=== PATIENT | female | born 1930 | race Caucasian/White ===

== ENCOUNTER 2018-03-11 13:46 | Emergency (ER) | payer MEDICARE, BC ==
[~2018-03-11] VITALS: Ht 152.4 cm; Wt 59.0 kg
[~2018-03-11 13:46] MED LIST: FOLIC ACID1 MG PO; GABAPENTIN300 MG PO; ISOSORBIDE MONO30 MG PO; LOSARTAN-HCTZ1 EACH PO; NITROGLYCERIN0.4 MG SL; OMEPRAZOLE20 MG PO; SERTRALINE HCL50 MG PO; SIMVASTATIN20 MG PO
[2018-03-11] MEDS ORDERED: CLONIDINE HCL 0.1 MG TAB PO STA (14:34)
--- NOTE | 2018-03-11 15:45 | Diagnostic Imaging Report ---
ELBOW RIGHT COMPLETE, FOREARM RIGHT 2 VIEW, HUMERUS RIGHT 2+VIEWS - 3 views HISTORY: Pain status post fall. COMPARISON: None available. FINDINGS: Bones: Mild generalized osteopenia. Small linear lucency with slight irregularity of the cortex of the medial epicondyle identified on the oblique view only. No acute displaced fracture. Osseous alignment is within normal limits. Joints: Advanced degenerative changes of the first and second carpometacarpal joints. Cystic changes throughout the carpal bones. Soft tissues: The soft tissues appear unremarkable. IMPRESSION: 1. Small linear lucency with slight irregularity of the cortex of the medial epicondyle identified on the oblique view only; it may be artifactual versus less likely a nondisplaced fracture. Otherwise no acute osseous abnormality. 2. 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 Signed by: Dr. Iva Santos M.D. on 03/11/2018 3:41 PM
--- NOTE | 2018-03-11 15:46 | Diagnostic Imaging Report ---
PROCEDURE: Frontal and lateral views of the chest. COMPARISON: None. INDICATIONS: FALL FINDINGS: Lines/tubes: None. Lungs: 1.9 cm irregular density in the left lower lobe on the PA view. Mild bibasilar senescent fibrosis. No consolidative pneumonia. Pleura: There is no pleural effusion or pneumothorax. Biapical pleural scarring. Heart and mediastinum: The heart and the mediastinum are normal. Median sternotomy wires. Mild prominence of the right hilum. Bones: No acute bony abnormality. IMPRESSION: 1. No acute thoracic abnormality. 2. 1.9 cm irregular density in the left lower lobe. Recommend further evaluation with nonemergent CT chest. Iva Santos M.D. Dictated by: Iva Santos M.D. on 03/11/2018 at 15:49 Electronically approved by: Iva Santos M.D. on 03/11/2018 at 15:49
--- NOTE | 2018-03-11 15:50 | Diagnostic Imaging Report ---
History:\S\fall on blood thinner \[id number] \S\1515 \S\Y Comparison studies:Head CT on 07/27/2012 Technique: Axial images were obtained from the skull base to the vertex. Coronal and sagittal images reconstructed from the axial data. Intravenous contrast: None Findings: Scalp/skull: No abnormalities. Extra-axial spaces: No masses. No fluid collections. Brain sulci: Moderately prominent. Ventricles: Moderate compensatory dilatation. No hydrocephalus. Parenchyma: Scattered, confluent hypodensities in the supratentorial white matter are small vessel ischemic changes which have mildly worsened since 07/27/2012. Chronic cortical encephalomalacic changes, centered in the right inferior frontal gyrus, associated with chronic changes in the underlying white matter and with regional volume loss, are the result of a previous peripheral MCA vascular insult. No masses, hemorrhage or additional acute or chronic cortical vascular insults. Sellar/suprasellar region: No abnormalities. Craniocervical junction: Patent foramen magnum. No Chiari one malformation. Incidental findings: Atherosclerotic calcifications in the carotid siphons . Impression: 1. No acute intracranial abnormalities. 2. Generalized volume loss and microvascular changes in the supratentorial white matter has a increased from mild to moderate since 08/13/2012. 3. Otherwise, no changes when compared to the head CT on 07/27/2012. 4. 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 Preliminary findings discussed with Dr. OUMOU JOAQUIN, OC at 03/11/2018 3:[address] Rueda. Signed by: Dr. Eduin Jernigan M.D. on 03/11/2018 3:46 PM
[2018-03-11] MEDS ORDERED: NEOMYCIN/POLYMYXIN/BACITRACIN 15 GM TUBE TOP STA (16:26)
[2018-03-11] MEDS ORDERED: ACETAMINOPHEN/CODEINE 300MG - 30MG TAB PO ONE (16:45)
[2018-03-11 17:41] VITALS: BP 152/57
== END 2018-03-11 18:02 | disposition home or self-care (01) ==
LOC: ER 13:46
DX: G89.11 Acute pain due to trauma (principal); S50.811A Abrasion of right forearm, initial encounter; S50.311A Abrasion of right elbow, initial encounter; S40.811A Abrasion of right upper arm, initial encounter; W01.0XXA Fall on same level from slipping, tripping and stumbling without subsequent striking against object, initial encounter; Y92.008 Other place in unspecified non-institutional (private) residence as the place of occurrence of the external cause; I10 Essential (primary) hypertension; K21.9 Gastro-esophageal reflux disease without esophagitis; F32.9 Major depressive disorder, single episode, unspecified; Z95.1 Presence of aortocoronary bypass graft
CPT/HCPCS: 70450; 71046; 99284

== ENCOUNTER 2019-05-23 06:30 | Emergency (ER) | payer MEDICARE, BC ==
[~2019-05-23] VITALS: Ht 152.4 cm; Wt 59.0 kg
--- OUTSIDE RECORDS SUMMARY | 2019-05-23 06:42 | XMS REPORT | Continuity of Care Document ---
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 Name Role Phone [employer] Unavailable Unavailable Problems Problem Status Onset Date Classification Date Reported Comments Source F32.9 Active 05/09/2019 [facility] PNEUMONIA Active 04/14/2019 [facility] CAP Active 04/14/2019 [facility] M39.05/M54.5 Active 04/02/2019 [facility] Unspecified injury of head, initial encounter 09/26/2018 04/07/2019 [facility] NEW ONSET ATRIAL FIBRILLATION Active 09/17/2018 [facility] FALL Active 09/17/2018 [facility] Sepsis, unspecified organism 08/28/2018 03/10/2019 [facility] ABNORMAL LIVER FUNCTION, ACUTE KIDNEY IN Active 08/16/2018 [facility] OTHER Active 08/16/2018 [facility] Multiple fractures of ribs, left side, initial encounter for closed fracture 08/09/2018 02/11/2019 [facility] BROKEN RIBS Active 07/22/2018 [facility] DYSPNEA Active 05/16/2018 [facility] M54.2 Active 03/04/2018 [facility] D50.0 Active 01/29/2018 [facility] R42 Active 08/06/2017 [facility] DX: I65.23=/ I65.23=/ I25.10=/ I65.21 Active 11/22/2016 [facility] UTI Active 05/26/2016 [facility] Z87.440; UTIRENAL STONE PROTOCOL Active 12/09/2015 [facility] HYPONATREMIA, HYPOKALEMIA, DIARRHEA Active 03/30/2012 [facility] NAUSEA Active 03/30/2012 [facility] Nausea (finding) Active 03/30/2012 Problem 05/11/2019 [facility] Nausea Active 03/30/2012 Problem 04/02/2012 [facility] Escherichia coli (organism) Active Problem 05/11/2019 Problem added by Discern Expert. [facility] Heart disease (disorder) Resolved Problem 05/11/2019 [facility] Hypertensive disorder, systemic arterial (disorder) Active Problem 05/11/2019 [facility] Pain in left hip 02/08/2019 [facility] Other chest pain 02/08/2019 [facility] Acute pain due to trauma 02/08/2019 [facility] Syncope and collapse 02/08/2019 [facility] Essential (primary) hypertension 04/07/2019 [facility] Abnormal electrocardiogram [ECG] [EKG] 02/08/2019 [facility] Pain in thoracic spine 02/08/2019 [facility] Cervicalgia 02/08/2019 [facility] Functional urinary incontinence 02/08/2019 [facility] Dysuria 02/08/2019 [facility],[id number] Dizziness and giddiness 02/08/2019 [facility] Unspecified kyphosis, site unspecified 02/08/2019 [facility] Acquired absence of both cervix and uterus 02/08/2019 [facility] Allergy status to sulfonamides status 04/07/2019 [facility] Unspecified fracture of second lumbar vertebra, initial encounter for closed fracture 02/11/2019 [facility] Unspecified fracture of third lumbar vertebra, initial encounter for closed fracture 02/11/2019 [facility] Unspecified fracture of fourth lumbar vertebra, initial encounter for closed fracture 02/11/2019 [facility] Coagulation defect, unspecified 02/11/2019 [facility] Fall on same level, unspecified, initial encounter 02/11/2019 [facility] Chronic kidney disease, stage 3 (moderate) 02/11/2019 [facility] Hypertensive chronic kidney disease with stage 1 through stage 4 chronic kidney disease, or unspecified chronic kidney disease 02/11/2019 [facility] Anxiety disorder, unspecified 02/11/2019 [facility] Postmenopausal atrophic vaginitis 02/11/2019 [facility] Orthostatic hypotension 02/11/2019 [facility] Shortness of breath 12/04/2018 [facility] Atherosclerotic heart disease of [place] coronary artery without angina pectoris 04/07/2019 [facility] Hypothyroidism, unspecified 04/07/2019 [facility] Hyperlipidemia, unspecified 04/07/2019 [facility] Personal history of urinary (tract) infections 03/10/2019 [facility] Personal history of other venous thrombosis and embolism 03/10/2019 [facility] Contusion of scalp, initial encounter 04/07/2019 [facility] Fall on same level from slipping, tripping and stumbling with subsequent striking against unspecified object, initial encounter 04/07/2019 [facility] Unspecified atrial fibrillation 04/07/2019 [facility] Urinary tract infection, site not specified 04/07/2019 [facility] Gastro-esophageal reflux disease without esophagitis 04/07/2019 [facility] half-way (current) use of aspirin 04/07/2019 [facility] 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 04/07/2019 [facility] 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 04/07/2019 [facility] Repeated falls 04/07/2019 [facility] Acute respiratory failure with hypoxia 03/10/2019 [facility] Pneumonia due to other aerobic Gram-negative bacteria 03/10/2019 [facility] Acute kidney failure, unspecified 03/10/2019 [facility] Chronic obstructive pulmonary disease with (acute) exacerbation 03/10/2019 [facility] Encounter for immunization 03/10/2019 [facility],[id number] Chronic obstructive pulmonary disease with acute lower respiratory infection 03/10/2019 [facility] Thrombocytopenia, unspecified 03/10/2019 [facility] Anemia in other chronic diseases classified elsewhere 03/10/2019 [facility] Other malaise 03/10/2019 [facility],[id number] Legal blindness, as defined in [place] 03/10/2019 [facility] Dehydration 03/10/2019 [facility] Multiple fractures of ribs, left side, subsequent encounter for fracture with routine healing 03/10/2019 [facility] Unspecified fracture of T5-T6 vertebra, subsequent encounter for fracture with routine healing 03/10/2019 [facility] Unspecified fracture of fourth thoracic vertebra, subsequent encounter for fracture with routine healing 03/10/2019 [facility] Unspecified fracture of second lumbar vertebra, subsequent encounter for fracture with routine healing 03/10/2019 [facility] Unspecified fracture of third lumbar vertebra, subsequent encounter for fracture with routine healing 03/10/2019 [facility] Hypertension Active Problem 04/02/2012 [facility] Cardiomyopathy, unspecified Active Problem 09/12/2017 2.16.840.1.372261.4.391.11.39164 Polyneuropathy Active Problem 02/27/2019 2.16.840.1.872511.4.391.11.13560 Occlusion and stenosis of unspecified carotid artery Active Problem 09/12/2017 2.16.840.1.718711.4.391.11.57753 Carotid stenosis, bilateral Active Problem 09/12/2017 2.16.840.1.061675.4.391.11.66496 Depressive disorder, not elsewhere classified Active Problem 05/23/2019 2.16.840.1.075459.4.391.11.75791 Carotid stenosis, right Active Problem 05/23/2019 2.16.840.1.537287.4.391.11.23814 Other specified acquired hypothyroidism Active Problem 05/23/2019 2.16.840.1.464330.4.391.11.15909 Symptomatic menopausal or female climacteric states Active Problem 05/23/2019 2.16.840.1.312010.4.391.11.45064 Atherosclerosis of both carotid arteries Active Problem 02/27/2019 2.16.840.1.675615.4.391.11.50993 Anxiety Active Problem 02/27/2019 2.16.840.1.516915.4.391.11.95868 Pure hypercholesterolemia Active Problem 09/12/2017 2.16.840.1.211083.4.391.11.96131 Hypertensive crisis Active Problem 09/12/2017 2.16.840.1.341081.4.391.11.15062 Polyosteoarthritis Active Problem 05/23/2019 2.16.840.1.287451.4.391.11.61685 Coronary atherosclerosis Active Problem 05/23/2019 2.16.840.1.076930.4.391.11.28026 Peripheral neuropathic pain Active Problem 05/23/2019 2.16.840.1.131207.4.391.11.46447 History of colonic polyps Active Problem 05/23/2019 2.16.840.1.229369.4.391.11.28744 Generalized osteoarthrosis, involving multiple sites Active Problem 05/23/2019 2.16.840.1.739049.4.391.11.61682 Bilateral carotid bruits Active Problem 02/27/2019 2.16.840.1.328579.4.391.11.14758 Chronic anxiety Active Problem 05/23/2019 2.16.840.1.198032.4.391.11.83200 Benign essential hypertension Active Problem 05/23/2019 2.16.840.1.714071.4.391.11.48378 Acute gastric ulcer Active Problem 02/27/2019 2.16.840.1.605160.4.391.11.87273 Urinary tract infection without hematuria, site unspecified Active Diagnosis 05/03/2019 2.16.840.1.941073.4.391.11.00149 Polymyalgia rheumatica Active Problem 05/23/2019 [facility],2.16.840.1.200160.4.391.11.66559 Other and unspecified hyperlipidemia Active Problem 05/23/2019 2.16.840.1.443675.4.391.11.77900 Acute deep vein thrombosis (DVT) of popliteal vein of left lower extremity Active Diagnosis 05/18/2017 2.16.840.1.098796.4.391.11.71799 Recurrent UTI Active Diagnosis 03/26/2019 2.16.840.1.088041.4.391.11.82100 Left leg swelling Active Diagnosis 03/07/2017 2.16.840.1.602697.4.391.11.59560 Closed fracture of one rib of right side with routine healing, subsequent encounter Active Diagnosis 03/07/2017 2.16.840.1.289735.4.391.11.59770 Benign positional vertigo, unspecified laterality Active Diagnosis 03/29/2017 2.16.840.1.149538.4.391.11.33874 Deep vein thrombosis (DVT) of other vein of left lower extremity Active Diagnosis 07/28/2017 2.16.840.1.132700.4.391.11.78387 UTI (urinary tract infection) Active Diagnosis 03/09/2018 2.16.840.1.182354.4.391.11.14234 Ataxia Active Problem 02/27/2019 2.16.840.1.488274.4.391.11.14019 Dizziness Active Diagnosis 08/11/2017 2.16.840.1.193217.4.391.11.63203 Anemia due to other cause, not classified Active Diagnosis 09/12/2017 2.16.840.1.473220.4.391.11.41579 Macular degeneration (senile) of retina Active Problem 05/23/2019 2.16.840.1.156905.4.391.11.95245 Urinary incontinence in female Active Problem 05/23/2019 2.16.840.1.377269.4.391.11.78682 Odynophagia Active Problem 02/27/2019 2.16.840.1.147507.4.391.11.96957 Fatigue, unspecified type Active Diagnosis 01/25/2018 2.16.840.1.654173.4.391.11.76511 Encounter for general adult medical examination with abnormal findings Active Diagnosis 05/03/2019 2.16.840.1.827697.4.391.11.54154 Neuralgia Active Problem 02/27/2019 2.16.840.1.467494.4.391.11.70277 Dyspnea, unspecified type Active Diagnosis 05/22/2018 2.16.840.1.183081.4.391.11.45558 Laryngospasm Active Diagnosis 06/08/2018 2.16.840.1.750652.4.391.11.04968 Neck pain on right side Active Diagnosis 03/20/2018 2.16.840.1.744351.4.391.11.19192 Other specified acquired hypothyroidism Active Problem 05/15/2015 2.16.840.1.150211.4.391.11.62526 Personal history of colonic polyps Active Problem 05/15/2015 2.16.840.1.798098.4.391.11.13985 Depressive disorder, not elsewhere classified Active Problem 05/15/2015 2.16.840.1.040567.4.391.11.59593 Abdominal aneurysm without mention of rupture Active Problem 05/15/2015 2.16.840.1.319717.4.391.11.94937 Occlusion and stenosis of carotid artery without mention of cerebral infarction Active Problem 05/15/2015 2.16.840.1.411912.4.391.11.52539 Vaginal dryness, menopausal Active Problem 05/15/2015 2.16.840.1.487089.4.391.11.30545 CAD (Coronary atherosclerosis of unspecified type of vessel, [place] or graft) Active Problem 05/15/2015 2.16.840.1.542600.4.391.11.22008 Generalized osteoarthrosis, involving multiple sites Active Problem 05/15/2015 2.16.840.1.271913.4.391.11.73694 Idiopathic progressive polyneuropathy Active Problem 05/15/2015 2.16.840.1.515475.4.391.11.35460 Pure hypercholesterolemia Active Problem 05/15/2015 2.16.840.1.649319.4.391.11.91665 Mononeuritis of unspecified site Active Problem 05/15/2015 2.16.840.1.620146.4.391.11.54686 HLD (Other and unspecified hyperlipidemia Active Problem 05/15/2015 2.16.840.1.489842.4.391.11.27751 BENIGN HTN (Essential hypertension, benign) Active Problem 05/15/2015 2.16.840.1.590516.4.391.11.43333 Pneumonia due to other specified bacteria Active Problem 05/15/2015 2.16.840.1.218097.4.391.11.92135 Other primary cardiomyopathies Active Diagnosis 05/14/2014 2.16.840.1.996814.4.391.11.39051 Other dysphagia Active Diagnosis 06/08/2018 2.16.840.1.097453.4.391.11.29140 Other fatigue Active Diagnosis 07/11/2018 2.16.840.1.945660.4.391.11.76211 Multiple falls Active Problem 02/27/2019 2.16.840.1.521604.4.391.11.07350 Dizziness Active Diagnosis 11/24/2014 2.16.840.1.378835.4.391.11.49877 Anemia Active Diagnosis 12/22/2014 2.16.840.1.672572.4.391.11.59383 Infective rhinitis Active Diagnosis 04/09/2015 2.16.840.1.756007.4.391.11.27580 Acute cystitis without hematuria Active Diagnosis 11/16/2015 2.16.840.1.566264.4.391.11.70895 Urinary tract infection, site unspecified Active Diagnosis 09/23/2015 2.16.840.1.123164.4.391.11.41660 Osteoarthritis, generalized Active Diagnosis 06/30/2016 2.16.840.1.248574.4.391.11.94203 Stress incontinence Active Diagnosis 11/19/2015 2.16.840.1.579971.4.391.11.63416 Acquired autoimmune hypothyroidism Active Diagnosis 10/05/2016 2.16.840.1.724319.4.391.11.29099 Encounter for examination of eyes and vision without abnormal findings Active Diagnosis 10/05/2016 2.16.840.1.999157.4.391.11.62118 Abdominal bruit Active Diagnosis 10/05/2016 2.16.840.1.576445.4.391.11.91785 BMI 25.0-25.9,adult Active Diagnosis 10/05/2016 2.16.840.1.199535.4.391.11.54721 Syncope, unspecified syncope type Active Diagnosis 12/11/2016 2.16.840.1.220133.4.391.11.34996 Other chronic pain Active Problem 05/23/2019 [facility],2.16.840.1.662201.4.391.11.95921 Chronic a-fib Active Problem 05/23/2019 2.16.840.1.182219.4.391.11.72578 Chronic anticoagulation Active Problem 05/23/2019 2.16.840.1.821026.4.391.68 Atrial fibrillation Active Diagnosis 04/17/2019 2.16.840.1.301089.4.39168 Dorsalgia, unspecified Active Diagnosis 05/03/2019 2.16.840.1.940764.4.39168 Community acquired pneumonia of left lower lobe of lung Active Diagnosis 05/04/2019 2.16.840.1.194138.4. Encounter for screening Active Diagnosis 05/03/2019 2.16.840.1.298288.4. Benign paroxysmal positional vertigo, unspecified laterality Active Diagnosis 01/03/2019 2.16.840.1.175563.4.391 Diarrhea, unspecified type Active Diagnosis 01/03/2019 2.16.840.1.996440.4. PNEUMONIA, UNSPECIFIED ORGANISM Active [facility] MAJOR DEPRESSIVE DISORDER, SINGLE EPISOD Active [facility] OTHER SPECIFIED DISEASES OF LIVER Active [facility] ACUTE KIDNEY FAILURE, UNSPECIFIED Active [facility] THROMBOCYTOPENIA, UNSPECIFIED Active [facility] FRACTURE OF ONE RIB, UNSP SIDE, INIT FOR Active [facility] CERVICALGIA Active [facility] LOW BACK PAIN Active [facility] UNK Active [facility] BACTERIAL PNEUMONIA NEC Active [facility] DIARRHEA Active [facility] PERSONAL HISTORY OF URINARY (TRACT) INFE Active [facility] HYPOPOTASSEMIA Active [facility] URINARY TRACT INFECTION, SITE NOT SPECIF Active [facility] OCCLUSION AND STENOSIS OF BILATERAL RIVERA Active [facility] ATHSCL HEART DISEASE OF [place] CORONARY Active [facility] DIZZINESS AND GIDDINESS Active [facility] ATAXIA, UNSPECIFIED Active [facility] IRON DEFICIENCY ANEMIA SECONDARY TO BLOO Active [facility] 466.0 Active [facility] ACUTE BRONCHITIS Active [facility] Medications Medication Details Route Status Patient Instructions Ordering Provider Order Date Source Bujdupr-Yfcigy-[facility]lipw Pertussis as directed Intramuscular Active 5-2.5-18.5 LF-MCG/0.5 Intramuscular as directed Anthony 04/23/2019 2.16.840.1.089861.4.391.68 gabapentin 300 MG Oral Capsule 300 mg, 1 cap, Route: PO, Drug form: CAP, BID, Dosing Weight 58.5, kg, Start date: 04/18/19 9:00:00 CDT, Duration: 30 day, Stop date: 05/17/19 21:00:00 CDT, 0Notes: (Same as: Neurontin) Inactive 04/18/2019 [facility] Levofloxacin 500 MG Oral Tablet [Levaquin] 500 mg=1 tab, PO, Q24H, X 10 day, # 10 tab, 0 Refill(s), Pharmacy: [facility] #[id number] Active 04/18/2019 [facility] benzonatate 200 MG Oral Capsule [Tessalon] 200 mg=1 cap, PO, TID, X 10 day, # 30 cap, 0 Refill(s), Pharmacy: [facility] #[id number] Active 04/18/2019 [facility] Myrbetriq 25 mg tab Pt's Own Med Myrbetriq 25 mg tab Pt's Own Med, 25 mg, Drug form: MISC, Route: PO, Daily, 04/17/19 9:00:00 CDT, Duration: 30 day, Stop date: 05/16/19 9:00:00 CDT, 0 No Longer Active 04/17/2019 [facility] Isosorbide 30 mg, 1 tab, Route: PO, Drug form: ERTAB, QAM, Dosing Weight 58.5, kg, Start date: 04/16/19 9:00:00 CDT, Duration: 30 day, Stop date: 05/15/19 9:00:00 CDT, 0Notes: (Same as:Immarshar) "Do Not Crush" Take on empty stomach/ full glass of water. Do not crush No Longer Active 04/16/2019 [facility] Hydrochlorothiazide 12.5 MG / Losartan Potassium 50 MG Oral Tablet 1 tab, Route: PO, Drug Form: TAB, Dosing Weight 58.5, kg, Daily, Start date: 04/16/19 9:00:00 CDT, Duration: 30 day, Stop date: 05/15/19 9:00:00 CDT No Longer Active 04/16/2019 [facility] gabapentin 300 MG Oral Capsule 300 mg, 1 cap, Route: PO, Drug form: CAP, Daily, Dosing Weight 58.5, kg, Start date: 04/16/19 9:00:00 CDT, Duration: 30 day, Stop date: 05/15/19 9:00:00 CDT, 0Notes: (Same as: Neurontin) No Longer Active 04/16/2019 [facility] Esomeprazole 40 mg, Route: PO, Drug form: ECCAP, Daily, Dosing Weight 58.5, kg, Start date: 04/16/19 9:00:00 CDT, Duration: 30 day, Stop date: 05/15/19 9:00:00 CDT No Longer Active 04/16/2019 [facility] Aspirin 81 MG Enteric Coated Tablet 81 mg, 1 tab, Route: PO, Drug form: ECTAB, Daily, Dosing Weight 58.5, kg, Start date: 04/16/19 9:00:00 CDT, Duration: 30 day, Stop date: 05/15/19 9:00:00 CDT, 0Notes: Do not crush or chew. (Same As: Ecotrin) No Longer Active 04/16/2019 [facility] Prednisone 5 mg, 2 tab, Route: PO, Drug form: TAB, Daily, Dosing Weight 58.5, kg, Start date: 04/16/19 9:00:00 CDT, Duration: 30 day, Stop date: 05/15/19 9:00:00 CDT, 0Notes: Take with food. No Longer Active 04/16/2019 [facility] hydrochlorothiazide 12.5 mg, 1 tab, Route: PO, Drug form: TAB, Bedtime, Start date: 04/16/19 9:00:00 CDT, Stop date: 05/15/19 21:00:00 CDT, 0Notes: (Same as: Hydrodiuril). Give with food. No Longer Active 04/16/2019 [facility] 24 HR mirabegron 25 MG Extended Release Tablet [Myrbetriq] 25 mg, 1 tab, Route: PO, Drug form: ERTAB, Daily, Dosing Weight 58.5, kg, Start date: 04/16/19 9:00:00 CDT, Duration: 30 day, Stop date: 05/15/19 9:00:00 CDT Inactive 04/16/2019 [facility] Cozaar 50 mg, 1 tab, Route: PO, Drug form: TAB, Daily, Start date: 04/16/19 9:00:00 CDT, Duration: 30 day, Stop date: 05/15/19 9:00:00 CDT, 0Notes: (Same as: Cozaar) No Longer Active 04/16/2019 [facility] Lopressor 50 mg, 1 tab, Route: PO, Drug form: ERTAB, Daily, Dosing Weight 58.5, kg, Start date: 04/16/19 9:00:00 CDT, Duration: 30 day, Stop date: 05/15/19 9:00:00 CDT, 0Notes: (Same as: Toprol XL) May split tab, but do not crush. No Longer Active 04/16/2019 [facility] Sertraline 25 mg, 0.5 tab, Route: PO, Drug form: TAB, Daily, Dosing Weight 58.5, kg, Start date: 04/16/19 9:00:00 CDT, Duration: 30 day, Stop date: 05/15/19 9:00:00 CDT, 0Notes: (Same as: Zoloft) No Longer Active 04/16/2019 [facility] Protonix 40 mg, 1 tab, Route: PO, Drug form: ECTAB, Daily, Start date: 04/16/19 9:00:00 CDT, Duration: 30 day, Stop date: 05/15/19 9:00:00 CDT, 0Notes: Tablet should not be chewed or crushed. (Same as: Protonix) No Longer Active 04/16/2019 [facility] Tessalon Perles 200 mg, 2 cap, Route: PO, Drug form: CAP, TID, Dosing Weight 58.5, kg, Start date: 04/16/19 8:00:00 CDT, Duration: 30 day, Stop date: 05/16/19 0:00:00 CDT, 0Notes: (Same As: Tessalon Perles) "Do Not Crush" No Longer Active 04/16/2019 [facility] D5W 1/2NS 1,000 mL 1,000 mL, Rate: 100 ml/hr, Infuse over: 10 hr, Route: IV, Dosing Weight 58.5 kg, Total Volume: 1,000, Start date: 04/16/19 7:52:00 CDT, Duration: 30 day, Stop date: 05/16/19 7:51:00 CDT, 1.59, m2, 0 No Longer Active 04/16/2019 [facility] Thyroxine 25 microgram, 1 tab, Route: PO, Drug form: TAB, Q630AM, Dosing Weight 58.5, kg, Start date: 04/16/19 6:30:00 CDT, Duration: 30 day, Stop date: 05/15/19 6:30:00 CDT, 0Notes: Take 1 hour before or 2 hours after meal; Enteral feeds may interefere with the absorption of this medication. (Same as:Levothroid) No Longer Active 04/16/2019 [facility] Rocephin + sterile water 10 mL 1 gm, Route: IVP, [id number], Dosing Weight 58.5, kg, Start date: 04/16/19 4:00:00 CDT, Duration: 10 day, Stop date: 04/25/19 4:00:00 CDT, ABX Indication: Pneumonia, 0Notes: (Same As: Rocephin). Use with 100 mL NS and infuse over 30 min MEDICATION WASTE Product Size: 1000 mg Product Wasted: ___ mg No Longer Active 04/16/2019 [facility] remove patch 1 patch, Route: TOP, Q24H, Drug form: ERFILM, Start date: 04/16/19 0:00:00 CDT, Duration: 30 day, Stop date: 05/15/19 0:00:00 CDT, 0 No Longer Active 04/16/2019 [facility] *RN please bring pt Myrbetriq to pharmacy for label* *RN please bring pt Myrbetriq to pharmacy for label*, reminder, Drug form: MISC, Route: MISC, [id number], 04/15/19 20:00:00 CDT, Duration: 30 day, Stop date: 05/15/19 8:00:00 CDT, 0 No Longer Active 04/16/2019 [facility] Zithromax 500 mg, Route: IVPB, [id number], Dosing Weight 58.5, kg, Start date: 04/15/19 18:00:00 CDT, Duration: 3 day, Stop date: 04/17/19 21:00:00 CDT, ABX Indication: Pneumonia, 0Notes: (Same As: Zithromax IV) No Longer Active 04/15/2019 [facility] Eliquis 2.5 mg, 1 tab, Route: PO, Drug form: TAB, BID, Dosing Weight 58.5, kg, Start date: 04/15/19 17:00:00 CDT, Duration: 30 day, Stop date: 05/15/19 9:00:00 CDT, 0Notes: Same as: Eliquis No Longer Active 04/15/2019 [facility] Tylenol 650 mg, 2 tab, Route: PO, Drug form: TAB, Q4H, Dosing Weight 58.5, kg, PRN Pain 1-3/Temp > 100.4 F, Start date: 04/15/19 16:48:00 CDT, Duration: 30 day, Stop date: 05/15/19 16:47:00 CDT, 0Notes: Do not exceed 4 gm/day. (Same as: Tylenol) No Longer Active 04/15/2019 [facility] Lidocaine Hydrochloride 0.05 MG/MG Transdermal Patch [Lidoderm] 1 patch, Route: TOP, Q24H, Drug form: FILM, Start date: 04/15/19 12:00:00 CDT, Duration: 30 day, Stop date: 05/14/19 12:00:00 CDT, 0 No Longer Active 04/15/2019 [facility] Isosorbide 30 mg, 1 tab, Route: PO, Drug form: ERTAB, QAM, Dosing Weight 58.5, kg, Start date: 04/15/19 11:47:00 CDT, Duration: 30 day, Stop date: 05/15/19 9:00:00 CDT, 0Notes: (Same as:Imdur) "Do Not Crush" Take on empty stomach/ full glass of water. Do not crush No Longer Active 04/15/2019 [facility] Aspirin 81 MG Enteric Coated Tablet 81 mg, 1 tab, Route: PO, Drug form: ECTAB, Bedtime, Dosing Weight 58.5, kg, Start date: 04/15/19 11:45:00 CDT, Stop date: 05/15/19 21:00:00 CDT, 0Notes: Do not crush or chew. (Same As: Ecotrin) No Longer Active 04/15/2019 [facility] Sertraline 25 mg, 0.5 tab, Route: PO, Drug form: TAB, Bedtime, Dosing Weight 58.5, kg, Start date: 04/15/19 11:45:00 CDT, Stop date: 05/15/19 21:00:00 CDT, 0Notes: (Same as: Zoloft) No Longer Active 04/15/2019 [facility] gabapentin 300 MG Oral Capsule 300 mg, 1 cap, Route: PO, Drug form: CAP, Daily, Dosing Weight 58.5, kg, Start date: 04/15/19 11:45:00 CDT, Duration: 30 day, Stop date: 05/15/19 9:00:00 CDT, 0Notes: (Same as: Neurontin) No Longer Active 04/15/2019 [facility] Protonix 40 mg, 1 tab, Route: PO, Drug form: ECTAB, Daily, Start date: 04/15/19 11:45:00 CDT, Duration: 30 day, Stop date: 05/15/19 9:00:00 CDT, 0Notes: Tablet should not be chewed or crushed. (Same as: Protonix) No Longer Active 04/15/2019 [facility] Lopressor 50 mg, 1 tab, Route: PO, Drug form: ERTAB, Daily, Dosing Weight 58.5, kg, Start date: 04/15/19 11:45:00 CDT, Duration: 30 day, Stop date: 05/15/19 9:00:00 CDT, 0Notes: (Same as: Toprol XL) May split tab, but do not crush. No Longer Active 04/15/2019 [facility] Cozaar 50 mg, 1 tab, Route: PO, Drug form: TAB, Bedtime, Start date: 04/15/19 11:45:00 CDT, Stop date: 05/15/19 21:00:00 CDT, 0Notes: (Same as: Cozaar) No Longer Active 04/15/2019 [facility] Nitroglycerin 0.4 MG Sublingual Tablet [Nitrostat] 0.4 mg, 1 tab, Route: SL, Drug form: TAB, Q5Min, Dosing Weight 58.5, kg, PRN Chest Pain, Start date: 04/15/19 11:19:00 CDT, Duration: 30 day, Stop date: 05/15/19 11:18:00 CDT, 0Notes: (Same as:Nitroquick, Nitrostat) "Do Not Crush" Sublingual tablet No Longer Active 04/15/2019 [facility] Melatonin 3 mg, 1 tab, Route: PO, Drug form: TAB, Bedtime, Dosing Weight 58.5, kg, PRN Sleep, Start date: 04/15/19 11:19:00 CDT, Duration: 30 day, Stop date: 05/15/19 11:18:00 CDT, 0Notes: (Same as: Melatonin) No Longer Active 04/15/2019 [facility] tramadol hydrochloride 50 MG Oral Tablet 50 mg, 1 tab, Route: PO, Drug form: TAB, Q12H, Dosing Weight 58.5, kg, PRN Pain Score 4-6, Start date: 04/15/19 11:19:00 CDT, Duration: 30 day, Stop date: 05/15/19 11:18:00 CDT, 0Notes: Not to exceed 400mg/day. (Same As: Ultram) No Longer Active 04/15/2019 [facility] meclizine 12.5 mg oral tablet 12.5 mg=1 tab, PO, BID, 0 Refill(s) Active 04/15/2019 [facility] Hydrochlorothiazide 12.5 MG / Losartan Potassium 50 MG Oral Tablet 1 tab, PO, Daily, 0 Refill(s) Active 04/15/2019 [facility] isosorbide mononitrate 30 mg oral tablet, extended release 30 mg=1 tab, PO, QAM, 0 Refill(s) Active 04/15/2019 [facility] sertraline 25 mg oral tablet 25 mg=1 tab, PO, Daily, 0 Refill(s) No Longer Active 04/15/2019 [facility] rivaroxaban 10 MG Oral Tablet [Xarelto] 10 mg=1 tab, PO, Daily, 0 Refill(s) Active 04/15/2019 [facility] metoprolol 50 mg oral tablet, extended release 50 mg=1 tab, PO, Daily, 0 Refill(s) No Longer Active 04/15/2019 [facility] Zithromax 500 mg, Route: IVPB, [id number], Dosing Weight 58.5, kg, Start date: 04/15/19 8:00:00 CDT, Duration: 3 day, Stop date: 04/17/19 8:00:00 CDT, ABX Indication: Pneumonia Inactive 04/15/2019 [facility] Rocephin 1 gm, Route: IVPB, Drug form: PDR/INJ, [id number], Dosing Weight 58.5, kg, Start date: 04/15/19 8:00:00 CDT, Duration: 10 day, Stop date: 04/24/19 8:00:00 CDT, ABX Indication: Pneumonia Inactive 04/15/2019 [facility] Saline Flush 0.9% 10 ml, Route: IVP, Drug Form: INJ, Dosing Weight 54.545, kg, Q12H, Start date: 04/14/19 21:00:00 CDT, Duration: 30 day, Stop date: 05/14/19 9:00:00 CDT, 0Notes: (Same as: BD Posiflush) No Longer Active 04/15/2019 [facility] Zithromax + Sodium Chloride 0.9% IV 250 mL 500 mg, Route: IVPB, ONCE, Dosing Weight 54.545, kg, Priority: Routine, Start date: 04/14/19 18:00:00 CDT, Stop date: 04/14/19 18:00:00 CDT, ABX Indication: Pneumonia, 0Notes: (Same As: Zithromax IV) Inactive 04/14/2019 [facility] cefTRIAXone + sterile water 10 mL 1 gm, Route: IV, ONCE, Start date: 04/14/19 18:00:00 CDT, Stop date: 04/14/19 18:00:00 CDT, ABX Indication: Other (specify in Comments), 0Notes: (Same As: Rocephin). Use with 100 mL NS and infuse over 30 min MEDICATION WASTE Product Size: 1000 mg Product Wasted: ___ mg No Longer Active 04/14/2019 [facility] *Please update height/weight/allergies on profile* *Please update height/weight/allergies on profile*, ATTN:ANNEL, Drug form: MISC, Route: MISC, Q30Min, 04/14/19 16:00:00 CDT, Duration: 4 hr, Stop date: 04/14/19 19:30:00 CDT, 0 Inactive 04/14/2019 [facility] Albuterol 0.83 MG/ML Inhalant Solution 2.49 mg, 3 mL, Route: NEB, Drug form: SOLN, RQ6H, Dosing Weight 54.545, kg, Priority: Routine, Start date: 04/14/19 14:00:00 CDT, Duration: 30 day, Stop date: 05/14/19 8:00:00 CDT, 0Notes: SEE RT DOCUMENTATION (Same as: Proventil) No Longer Active 04/14/2019 [facility] Saline Flush 0.9% 10 ml, Route: IVP, Drug Form: INJ, Dosing Weight 54.545, kg, PRN, PRN Line Flush, Start date: 04/14/19 11:23:00 CDT, Duration: 30 day, Stop date: 05/14/19 11:22:00 CDT, 0Notes: (Same as: BD Posiflush) No Longer Active 04/14/2019 [facility] Dextromethorphan Hydrobromide 2 MG/ML / Guaifenesin 20 MG/ML Oral Solution 10 mL, Route: PO, Drug Form: LIQ, Dosing Weight 54.545, kg, Q4H, PRN Cough, Start date: 04/14/19 11:23:00 CDT, Duration: 30 day, Stop date: 05/14/19 11:22:00 CDT, 0Notes: (dextromethorphan-guaifenesin 10-100/5 ml LIQ) (Same as: Robitussin-DM) No Longer Active 04/14/2019 [facility] Ceftriaxone 1 gm, Route: IVP, ONCE, Dosing Weight 54.545, kg, Priority: STAT, Start date: 04/14/19 11:20:00 CDT, Stop date: 04/14/19 11:20:00 CDT, ABX Indication: Pneumonia Inactive 04/14/2019 [facility] Azithromycin 500 mg, Route: IVPB, ONCE, Dosing Weight 54.545, kg, Priority: STAT, Start date: 04/14/19 11:20:00 CDT, Stop date: 04/14/19 11:20:00 CDT, ABX Indication: Pneumonia Inactive 04/14/2019 [facility] Lidoderm 1 patch to skin remove after 12 hours Externally Active 5 % Externally Once a day Anthony 04/02/2019 [id number] Nitrofurantoin Macrocrystal 1 capsule with food or milk Orally Active 100 MG Orally bid Anthony 03/26/2019 [id number] Pyridium 1 tablet after meals Orally Active 100 mg Orally Three times a day Anthony 03/24/2019 [id number] Xarelto 1 tablet with food Orally Active 10 mg Orally Once a day Anthony 02/04/2019 [id number] Eliquis as directed Orally Active 2.5 MG Orally twice a day (bid) Anthony 12/16/2018 [id number] [facility] 1 capsule Orally Active - Orally daily Anthony 12/11/2018 [id number] Eliquis 1 tablet Orally Active 2.5 MG Orally twice a day (bid) Anthony 10/25/2018 [id number] Lidoderm 1 patch to skin remove after 12 hours Externally Active 5 % Externally Once a day Anthony 10/25/2018 [id number] Tramadol HCl 1 tablet as needed Orally Active 50 mg Orally as needed (prn) Anthony 10/25/2018 [id number] remove patch 1 patch, Route: TOP, Bedtime, Drug form: ERFILM, Start date: 09/19/18 21:00:00 ENVIRONMENTAL PROGRAM MANAGER, Duration: 30 day, Stop date: 10/18/18 21:00:00 CSTNotes: Remove patch 12 hours after application each day. No Longer Active 09/20/2018 [facility] Losartan 25 mg, 1 tab, Route: PO, Drug form: TAB, Daily, Dosing Weight 54.545, kg, Start date: 09/19/18 9:00:00 ENVIRONMENTAL PROGRAM MANAGER, Duration: 30 day, Stop date: 10/18/18 9:00:00 CSTNotes: (Same as: Cozaar) No Longer Active 09/19/2018 [facility] Acetaminophen 1,000 mg, 2 tab, Route: PO, Drug form: TAB, Bedtime, Dosing Weight 54.545, kg, Start date: 09/18/18 21:00:00 ENVIRONMENTAL PROGRAM MANAGER, Duration: 30 day, Stop date: 10/17/18 21:00:00 CSTNotes: Max acetaminophen 4000 mg/day (4 gm/day). (Same as: Tylenol Extra Strength) Inactive 09/19/2018 [facility] Eliquis 2.5 mg, 1 tab, Route: PO, Drug form: TAB, BID, Dosing Weight 54.545, kg, Start date: 09/18/18 17:00:00 ENVIRONMENTAL PROGRAM MANAGER, Duration: 30 day, Stop date: 10/18/18 9:00:00 CSTNotes: Same as: Eliquis Inactive 09/18/2018 [facility] metoprolol tartrate 25 mg oral tablet 25 mg, PO, BID, 0 Refill(s) Active 09/18/2018 [facility] apixaban 2.5 MG Oral Tablet [Eliquis] 2.5 mg, PO, BID, 0 Refill(s) Active 09/18/2018 [facility] melatonin 3 mg oral tablet 3 mg=1 tab, PO, Bedtime, 0 Refill(s) Active 09/18/2018 [facility] losartan 25 mg oral tablet 25 mg, PO, Daily, 0 Refill(s) Active 09/18/2018 [facility] metoprolol tartrate 25 mg, 1 tab, Route: PO, Drug form: TAB, BID, Dosing Weight 54.545, kg, Priority: STAT, Start date: 09/18/18 12:55:00 ENVIRONMENTAL PROGRAM MANAGER, Duration: 30 day, Stop date: 10/18/18 9:00:00 CSTNotes: (Same as: Lopressor) Inactive 09/18/2018 [facility] Lidocaine Hydrochloride 0.05 MG/MG Transdermal Patch [Lidoderm] 1 patch, Route: TOP, Q24H, Drug form: FILM, Start date: 09/18/18 9:00:00 ENVIRONMENTAL PROGRAM MANAGER, Duration: 30 day, Stop date: 10/17/18 9:00:00 CSTNotes: Apply only once for up to 12 hours in a 24-hour period (12 hours on and 12 hours off). (Same as: Lidoderm) "Remove old patch before application of new patch" Inactive 09/18/2018 [facility] Esomeprazole 40 mg, Route: PO, Drug form: ECCAP, Daily, Dosing Weight 54.545, kg, Start date: 09/18/18 9:00:00 ENVIRONMENTAL PROGRAM MANAGER, Duration: 30 day, Stop date: 10/17/18 9:00:00 ENVIRONMENTAL PROGRAM MANAGER No Longer Active 09/18/2018 [facility] Aspirin 81 MG Enteric Coated Tablet 81 mg, 1 tab, Route: PO, Drug form: ECTAB, Daily, Dosing Weight 54.545, kg, Start date: 09/18/18 9:00:00 ENVIRONMENTAL PROGRAM MANAGER, Duration: 30 day, Stop date: 10/17/18 9:00:00 CSTNotes: Do not crush or chew. (Same As: Ecotrin) Inactive 09/18/2018 [facility] Protonix 40 mg, 1 tab, Route: PO, Drug form: ECTAB, Daily, Start date: 09/18/18 9:00:00 ENVIRONMENTAL PROGRAM MANAGER, Duration: 30 day, Stop date: 10/17/18 9:00:00 CSTNotes: Tablet should not be chewed or crushed. (Same as: Protonix) Inactive 09/18/2018 [facility] Sertraline 50 mg, 1 tab, Route: PO, Drug form: TAB, Daily, Dosing Weight 54.545, kg, Start date: 09/18/18 9:00:00 ENVIRONMENTAL PROGRAM MANAGER, Duration: 30 day, Stop date: 10/17/18 9:00:00 CSTNotes: (Same as: Zoloft) Inactive 09/18/2018 [facility] Prednisone 5 mg, 2 tab, Route: PO, Drug form: TAB, Daily, Dosing Weight 54.545, kg, Start date: 09/18/18 9:00:00 ENVIRONMENTAL PROGRAM MANAGER, Duration: 30 day, Stop date: 10/17/18 9:00:00 CSTNotes: Take with food. Inactive 09/18/2018 [facility] 24 HR mirabegron 25 MG Extended Release Tablet [Myrbetriq] 25 mg, 1 tab, Route: PO, Drug form: ERTAB, Daily, Dosing Weight 54.545, kg, Start date: 09/18/18 9:00:00 ENVIRONMENTAL PROGRAM MANAGER, Duration: 30 day, Stop date: 10/17/18 9:00:00 ENVIRONMENTAL PROGRAM MANAGER Inactive 09/18/2018 [facility] Losartan 50 mg, 1 tab, Route: PO, Drug form: TAB, Daily, Dosing Weight 54.545, kg, Start date: 09/18/18 9:00:00 ENVIRONMENTAL PROGRAM MANAGER, Duration: 30 day, Stop date: 10/17/18 9:00:00 CSTNotes: (Same as: Cozaar) Inactive 09/18/2018 [facility] Thyroxine 25 microgram, 1 tab, Route: PO, Drug form: TAB, Q630AM, Dosing Weight 54.545, kg, Start date: 09/18/18 6:30:00 ENVIRONMENTAL PROGRAM MANAGER, Duration: 30 day, Stop date: 10/17/18 6:30:00 CSTNotes: Take 1 hour before or 2 hours after meal; Enteral feeds may interefere with the absorption of this medication. (Same as:Levothroid) Inactive 09/18/2018 [facility] Hydralazine Hydrochloride 10 MG Oral Tablet 10 mg, 1 tab, Route: PO, Drug form: TAB, Q6H, Dosing Weight 54.545, kg, Start date: 09/18/18 0:00:00 ENVIRONMENTAL PROGRAM MANAGER, Duration: 30 day, Stop date: 10/17/18 18:00:00 CSTNotes: (Same as: Apresoline) May interfere w/enteral feedings. Take With Food Inactive 09/18/2018 [facility] please bring pt's own med myrbetriq to pharmacy please bring pt's own med myrbetriq to pharmacy, reminder, Drug form: MISC, Route: TOREYCPERICO, 09/18/18 0:00:00 ENVIRONMENTAL PROGRAM MANAGER, Duration: 30 day, Stop date: 10/17/18 16:00:00 ENVIRONMENTAL PROGRAM MANAGER Inactive 09/18/2018 [facility] Melatonin 3 mg, 1 tab, Route: PO, Drug form: TAB, Bedtime, Dosing Weight 54.545, kg, Start date: 09/17/18 23:00:00 ENVIRONMENTAL PROGRAM MANAGER, Duration: 30 day, Stop date: 10/17/18 21:00:00 CSTNotes: (Same as: Melatonin) No Longer Active 09/18/2018 [facility] heparin 5,000 unit, 1 mL, Route: SUB-Q, Drug form: INJ, Q8H-06, Dosing Weight 54.545, kg, Start date: 09/17/18 22:00:00 ENVIRONMENTAL PROGRAM MANAGER, Duration: 30 day, Stop date: 10/17/18 14:00:00 CSTNotes: porcine heparin No Longer Active 09/18/2018 [facility] gabapentin 300 MG Oral Capsule 300 mg, 1 cap, Route: PO, Drug form: CAP, BID, Dosing Weight 54.545, kg, Start date: 09/17/18 21:40:00 ENVIRONMENTAL PROGRAM MANAGER, Duration: 30 day, Stop date: 10/17/18 21:00:00 CSTNotes: (Same as: Neurontin) No Longer Active 09/18/2018 [facility] tramadol hydrochloride 50 MG Oral Tablet 50 mg, 1 tab, Route: PO, Drug form: TAB, Q8H, Dosing Weight 54.545, kg, PRN Pain Score 4-6, Start date: 09/17/18 21:32:00 ENVIRONMENTAL PROGRAM MANAGER, Duration: 30 day, Stop date: 10/17/18 21:31:00 CSTNotes: Not to exceed 400mg/day. (Same As: Ultram) No Longer Active 09/18/2018 [facility] Nitroglycerin 0.4 MG Sublingual Tablet [Nitrostat] 0.4 mg, 1 tab, Route: SL, Drug form: TAB, Q5Min, Dosing Weight 54.545, kg, PRN Chest Pain, Start date: 09/17/18 21:32:00 ENVIRONMENTAL PROGRAM MANAGER, Duration: 30 day, Stop date: 10/17/18 21:31:00 CSTNotes: (Same as:Nitroquick, Nitrostat) "Do Not Crush" Sublingual tablet No Longer Active 09/18/2018 [facility] Meclizine 25 mg, 1 tab, Route: PO, Drug form: TAB, Daily, Dosing Weight 54.545, kg, PRN Dizziness, Start date: 09/17/18 21:32:00 ENVIRONMENTAL PROGRAM MANAGER, Duration: 30 day, Stop date: 10/17/18 21:31:00 CSTNotes: (Same as: Antivert) No Longer Active 09/18/2018 [facility] Ceftriaxone 1 gm, Route: IVP, [id number], Dosing Weight 54.545, kg, Start date: 09/17/18 21:00:00 ENVIRONMENTAL PROGRAM MANAGER, Duration: 10 day, Stop date: 09/26/18 21:00:00 ENVIRONMENTAL PROGRAM MANAGER, ABX Indication: Urinary Tract InfectionNotes: (Same As: Rocephin). Use with 100 mL NS and infuse over 30 min MEDICATION WASTE Product Size: 1000 mg Product Wasted: ___ mg No Longer Active 09/18/2018 [facility] tramadol hydrochloride 50 MG Oral Tablet 50 mg=1 tab, PO, Q8H, PRN Pain, # 60 tab, 0 Refill(s) Active 09/18/2018 [facility] meclizine 25 mg oral tablet 25 mg=1 tab, PO, PRN, once daily as needed, 0 Refill(s) Active 09/18/2018 [facility] Esomeprazole 40 MG Enteric Coated Capsule 40 mg=1 cap, PO, Daily, # 30 cap, 0 Refill(s) Active 09/18/2018 [facility] melatonin 3 mg oral tablet 3 mg=1 tab, PO, Bedtime, PRN for insomnia, # 60 tab, 0 Refill(s) Active 09/18/2018 [facility] Saline Flush 0.9% 10 ml, Route: IVP, Drug Form: INJ, Dosing Weight 54.545, kg, PRN, PRN Line Flush, Start date: 09/17/18 20:39:00 ENVIRONMENTAL PROGRAM MANAGER, Duration: 30 day, Stop date: 10/17/18 20:38:00 CSTNotes: (Same as: BD Posiflush) No Longer Active 09/18/2018 [facility] Lactated Ringers IV 1,000 mL 1,000 mL, Rate: 100 ml/hr, Infuse over: 10 hr, Route: IV, Dosing Weight 54.545 kg, Total Volume: 1,000, Start date: 09/17/18 20:39:00 ENVIRONMENTAL PROGRAM MANAGER, Duration: 30 day, Stop date: 10/17/18 20:38:00 ENVIRONMENTAL PROGRAM MANAGER, 1.59, m2 No Longer Active 09/18/2018 [facility] Dextrose 50% Syringe 25 gm, 50 mL, Route: IVP, Drug Form: INJ, Dosing Weight 54.545, kg, PRN, PRN Blood Glucose Results, Start date: 09/17/18 20:39:00 ENVIRONMENTAL PROGRAM MANAGER, Duration: 30 day, Stop date: 10/17/18 20:38:00 ENVIRONMENTAL PROGRAM MANAGER No Longer Active 09/18/2018 [facility] Glucagon 1 mg, Route: IM, Drug form: PDR/INJ, PRN, Dosing Weight 54.545, kg, PRN Blood Glucose Results, Start date: 09/17/18 20:39:00 ENVIRONMENTAL PROGRAM MANAGER, Duration: 30 day, Stop date: 10/17/18 20:38:00 ENVIRONMENTAL PROGRAM MANAGER No Longer Active 09/18/2018 [facility] Acetaminophen 650 mg, 2 tab, Route: PO, Drug form: TAB, Q4H, Dosing Weight 54.545, kg, PRN For Temp > 100.4 F, Start date: 09/17/18 20:39:00 ENVIRONMENTAL PROGRAM MANAGER, Duration: 30 day, Stop date: 10/17/18 20:38:00 CSTNotes: Do not exceed 4 gm/day. (Same as: Tylenol) No Longer Active 09/18/2018 [facility] Ondansetron 4 mg, 2 mL, Route: IVP, Drug form: INJ, Q8H, Dosing Weight 54.545, kg, PRN Nausea & Vomiting, Start date: 09/17/18 20:39:00 ENVIRONMENTAL PROGRAM MANAGER, Duration: 30 day, Stop date: 10/17/18 20:38:00 CSTNotes: (Same as: Debra) MEDICATION WASTE Product Size: 4 mg Product Wasted: ___ mg No Longer Active 09/18/2018 [facility] Magnesium Oxide 400 mg, 1 tab, Route: PO, Drug form: TAB, ONCE, Dosing Weight 54.545, kg, Priority: STAT, Start date: 09/17/18 18:46:00 ENVIRONMENTAL PROGRAM MANAGER, Stop date: 09/17/18 18:46:00 CSTNotes: (Same as: Mag-Ox 400) Magnesium oxi de [id number] elemental magnesium Dose=____mg magnesium oxide (___mg elemental magnesium) Inactive 09/18/2018 [facility] Tramadol 50 mg, Route: PO, Drug form: TAB, ONCE, Dosing Weight 54.545, kg, > 50 kg, Priority: STAT, Start date: 09/17/18 17:42:00 ENVIRONMENTAL PROGRAM MANAGER, Stop date: 09/17/18 17:42:00 ENVIRONMENTAL PROGRAM MANAGER Inactive 09/17/2018 [facility] Cardizem 5 mg, Route: IVP, ONCE, Dosing Weight 54.545, kg, Priority: STAT, Start date: 09/17/18 17:37:00 ENVIRONMENTAL PROGRAM MANAGER, Stop date: 09/17/18 17:37:00 ENVIRONMENTAL PROGRAM MANAGER Inactive 09/17/2018 [facility] Levofloxacin 500 MG Oral Tablet [Levaquin] 500 mg=1 tab, PO, Q24H, X 7 day, # 7 tab, 0 Refill(s), other No Longer Active 08/21/2018 [facility] vancomycin + Sodium Chloride 0.9% IV 250 mL 1,000 mg, Route: IVPB, [id number], Start date: 08/19/18 3:00:00 ENVIRONMENTAL PROGRAM MANAGER, Duration: 9 day, Stop date: 08/27/18 3:00:00 ENVIRONMENTAL PROGRAM MANAGER, ABX Indication: PneumoniaNotes: TIME CRITICAL MEDICATION (Same As: Vancocin) Infusion rate 2001 mg: infuse over 2.5 hours For adult patients only: Round to nearest 250 mg per Medical Staff approval MEDICATION WASTE Product Size: 1000 mg Product Wasted: ___ mg No Longer Active 08/19/2018 [facility] RN-Wait for trough draw before 02:00 Vanco on 08/19 RN-Wait for trough draw before 02:00 Vanco on 08/19, Attn:RN, Drug form: MISC, Route: MISC, ONCE, 08/19/18 1:00:00 ENVIRONMENTAL PROGRAM MANAGER, Stop date: 08/19/18 1:00:00 ENVIRONMENTAL PROGRAM MANAGER Inactive 08/19/2018 [facility] Tylenol 500 mg, 1 tab, Route: PO, Drug form: TAB, Q6H, Dosing Weight 61.364, kg, PRN Pain Score 1-5, Start date: 08/18/18 14:04:00 ENVIRONMENTAL PROGRAM MANAGER, Duration: 30 day, Stop date: 09/17/18 14:03:00 CSTNotes: Max acetaminophen 4000 mg/day (4 gm/day). (Same as: Tylenol Extra Strength) No Longer Active 08/18/2018 [facility] Robitussin DM 10 mL, Route: PO, Drug Form: LIQ, Dosing Weight 61.364, kg, Q6H, PRN as needed for cough, Start date: 08/18/18 12:54:00 ENVIRONMENTAL PROGRAM MANAGER, Duration: 30 day, Stop date: 09/17/18 12:53:00 CSTNotes: (dextromethorphan -guaifenesin 10-100/5 ml LIQ) (Same as: Robitussin-DM) No Longer Active 08/18/2018 [facility] vancomycin + Sodium Chloride 0.9% IV 100 mL 500 mg, Route: IVPB, [id number], Start date: 08/18/18 0:30:00 ENVIRONMENTAL PROGRAM MANAGER, Duration: 9 day, Stop date: 08/26/18 2:00:00 ENVIRONMENTAL PROGRAM MANAGER, ABX Indication: ED - Suspected SepsisNotes: TIME CRITICAL MEDICATION (Same As: Vancocin) For adult patients only: Round to nearest 250 mg per Medical Staff approval No Longer Active 08/18/2018 [facility] gabapentin 300 MG Oral Capsule 300 mg, 1 cap, Route: PO, Drug form: CAP, BID, Dosing Weight 61.364, kg, Start date: 08/17/18 21:00:00 ENVIRONMENTAL PROGRAM MANAGER, Duration: 30 day, Stop date: 09/16/18 9:00:00 CSTNotes: (Same as: Neurontin) No Longer Active 08/18/2018 [facility] Melatonin 3 mg, 1 tab, Route: PO, Drug form: TAB, Bedtime, Dosing Weight 61.364, kg, Start date: 08/17/18 21:00:00 ENVIRONMENTAL PROGRAM MANAGER, Duration: 30 day, Stop date: 09/15/18 21:00:00 CSTNotes: (Same as: Melatonin) No Longer Active 08/18/2018 [facility] Melatonin 3 mg, 1 tab, Route: PO, Drug form: TAB, Bedtime, Dosing Weight 61.364, kg, PRN Sleep, Start date: 08/17/18 18:54:00 ENVIRONMENTAL PROGRAM MANAGER, Duration: 30 day, Stop date: 09/16/18 18:53:00 CSTNotes: (Same as: Melatonin) No Longer Active 08/18/2018 [facility] Protonix 40 mg, 1 tab, Route: PO, Drug form: ECTAB, Before Dinner, Start date: 08/17/18 16:30:00 ENVIRONMENTAL PROGRAM MANAGER, Duration: 30 day, Stop date: 09/15/18 16:30:00 CSTNotes: Tablet should not be chewed or crushed. (Same as: Protonix) No Longer Active 08/17/2018 [facility] sennosides, INTERMEDIATE 8.6 MG Oral Tablet 17.2 mg, 2 tab, Route: PO, Drug Form: TAB, Dosing Weight 61.364, kg, Daily, Start date: 08/17/18 9:00:00 ENVIRONMENTAL PROGRAM MANAGER, Duration: 30 day, Stop date: 09/15/18 9:00:00 CSTNotes: (Same as: Senokot) No Longer Active 08/17/2018 [facility] Sertraline 50 mg, 1 tab, Route: PO, Drug form: TAB, Daily, Dosing Weight 61.364, kg, Start date: 08/17/18 9:00:00 ENVIRONMENTAL PROGRAM MANAGER, Duration: 30 day, Stop date: 09/15/18 9:00:00 CSTNotes: (Same as: Zoloft) No Longer Active 08/17/2018 [facility] Prednisone 5 mg, 2 tab, Route: PO, Drug form: TAB, Daily, Dosing Weight 61.364, kg, Start date: 08/17/18 9:00:00 ENVIRONMENTAL PROGRAM MANAGER, Duration: 30 day, Stop date: 09/15/18 9:00:00 CSTNotes: Take with food. No Longer Active 08/17/2018 [facility] Omeprazole 40 mg, Route: PO, Daily, Dosing Weight 61.364, kg, Start date: 08/17/18 9:00:00 ENVIRONMENTAL PROGRAM MANAGER, Duration: 30 day, Stop date: 09/15/18 9:00:00 ENVIRONMENTAL PROGRAM MANAGER Inactive 08/17/2018 [facility] POLYETHYLENE GLYCOL 3350 17 gm, 1 pkt, Route: PO, Drug form: PWDR, BID, Dosing Weight 61.364, kg, Start date: 08/17/18 9:00:00 ENVIRONMENTAL PROGRAM MANAGER, Duration: 30 day, Stop date: 09/15/18 17:00:00 CSTNotes: Dissolve in 8 oz of water or juice. (Same as: Miralax) No Longer Active 08/17/2018 [facility] 24 HR mirabegron 25 MG Extended Release Tablet [Myrbetriq] 25 mg, 1 tab, Route: PO, Drug form: ERTAB, Daily, Dosing Weight 61.364, kg, Start date: 08/17/18 9:00:00 ENVIRONMENTAL PROGRAM MANAGER, Duration: 30 day, Stop date: 09/15/18 9:00:00 ENVIRONMENTAL PROGRAM MANAGER No Longer Active 08/17/2018 [facility] Losartan 50 mg, 1 tab, Route: PO, Drug form: TAB, Daily, Dosing Weight 61.364, kg, Start date: 08/17/18 9:00:00 ENVIRONMENTAL PROGRAM MANAGER, Duration: 30 day, Stop date: 09/15/18 9:00:00 CSTNotes: (Same as: Cozaar) No Longer Active 08/17/2018 [facility] Docusate Sodium 100 MG Oral Capsule 100 mg, 1 cap, Route: PO, Drug form: CAP, BID, Dosing Weight 61.364, kg, Start date: 08/17/18 9:00:00 ENVIRONMENTAL PROGRAM MANAGER, Duration: 30 day, Stop date: 09/15/18 17:00:00 CSTNotes: (Same as: Colace) (Do Not Crush) No Longer Active 08/17/2018 [facility] Aspirin 81 MG Enteric Coated Tablet 81 mg, 1 tab, Route: PO, Drug form: ECTAB, Daily, Dosing Weight 61.364, kg, Start date: 08/17/18 9:00:00 ENVIRONMENTAL PROGRAM MANAGER, Duration: 30 day, Stop date: 09/15/18 9:00:00 CSTNotes: Do not crush or chew. (Same As: Ecotrin) No Longer Active 08/17/2018 [facility] remove patch Route: TOP, Daily, Drug form: ERFILM, Start date: 08/17/18 9:00:00 ENVIRONMENTAL PROGRAM MANAGER, Duration: 30 day, Stop date: 09/15/18 9:00:00 CSTNotes: Remove patch 12 hours after application each day. No Longer Active 08/17/2018 [facility] Acetaminophen 500 MG Oral Tablet [Tylenol] 1,000 mg=2 tab, PO, Bedtime, 0 Refill(s) Active 08/17/2018 [facility] gabapentin 300 MG Oral Capsule 300 mg=1 cap, PO, BID, 0 Refill(s) Active 08/17/2018 [facility] Melatonin PO, Bedtime, 0 Refill(s) Active 08/17/2018 [facility] Thyroxine 25 microgram, 1 tab, Route: PO, Drug form: TAB, [id number], Dosing Weight 61.364, kg, Start date: 08/17/18 6:30:00 ENVIRONMENTAL PROGRAM MANAGER, Duration: 30 day, Stop date: 09/15/18 6:30:00 CSTNotes: Take 1 hour before or 2 hours after meal; Enteral feeds may interefere with the absorption of this medication. (Same as:Levothroid) No Longer Active 08/17/2018 [facility] Hydralazine Hydrochloride 10 MG Oral Tablet 10 mg, 1 tab, Route: PO, Drug form: TAB, Q6H, Dosing Weight 61.364, kg, Start date: 08/17/18 6:00:00 ENVIRONMENTAL PROGRAM MANAGER, Duration: 30 day, Stop date: 09/16/18 0:00:00 CSTNotes: (Same as: Apresoline) May interfere w/enteral feedings. Take With Food No Longer Active 08/17/2018 [facility] Lidocaine Hydrochloride 0.05 MG/MG Transdermal Patch [Lidoderm] 1 patch, Route: TOP, Bedtime, Drug form: FILM, Start date: 08/17/18 1:00:00 ENVIRONMENTAL PROGRAM MANAGER, Duration: 30 day, Stop date: 09/15/18 21:00:00 CSTNotes: Apply only once for up to 12 hours in a 24-hour period (12 hours on and 12 hours off). (Same as: Lidoderm) "Remove old patch before application of new patch" No Longer Active 08/17/2018 [facility] Nitroglycerin 0.4 MG Sublingual Tablet [Nitrostat] 0.4 mg, 1 tab, Route: SL, Drug form: TAB, Q5Min, Dosing Weight 61.364, kg, PRN Chest Pain, Start date: 08/17/18 0:58:00 ENVIRONMENTAL PROGRAM MANAGER, Duration: 30 day, Stop date: 09/16/18 0:57:00 CSTNotes: (Same as:Nitroquick, Nitrostat) "Do Not Crush" Sublingual tablet No Longer Active 08/17/2018 [facility] Meclizine 25 mg, 1 tab, Route: PO, Drug form: TAB, TID, Dosing Weight 61.364, kg, PRN Dizziness, Start date: 08/17/18 0:58:00 ENVIRONMENTAL PROGRAM MANAGER, Duration: 30 day, Stop date: 09/16/18 0:57:00 CSTNotes: (Same as: Antivert) No Longer Active 08/17/2018 [facility] Bisacodyl 10 mg, 2 tab, Route: PO, Drug form: ECTAB, Q24H, Dosing Weight 61.364, kg, PRN Constipation, Start date: 08/17/18 0:58:00 ENVIRONMENTAL PROGRAM MANAGER, Duration: 30 day, Stop date: 09/16/18 0:57:00 CSTNotes: (Same As: Dulcolax, Correctol) (Do Not Crush) "Do Not Crush" No Longer Active 08/17/2018 [facility] vancomycin + Sodium Chloride 0.9% IV 250 mL 1,000 mg, Route: IVPB, ONCE, Start date: 08/16/18 22:30:00 ENVIRONMENTAL PROGRAM MANAGER, Stop date: 08/16/18 22:30:00 ENVIRONMENTAL PROGRAM MANAGER, ABX Indication: Other (specify in Comments)Notes: TIME CRITICAL MEDICATION (Same As: Vancocin) Infusion rate 2001 mg: infuse over 2.5 hours For adult patients only: Round to nearest 250 mg per Medical Staff approval MEDICATION WASTE Product Size: 1000 mg Product Wasted: ___ mg No Longer Active 08/17/2018 [facility] Maxipime + sterile water 10 mL 1 gm, Route: IV, ONCE, Start date: 08/16/18 22:07:00 ENVIRONMENTAL PROGRAM MANAGER, Stop date: 08/16/18 22:07:00 ENVIRONMENTAL PROGRAM MANAGER, ABX Indication: Other (specify in Comments)Notes: (Same As: Maxipime) MEDICATION WASTE Product Size: 1000 mg Product Wasted: ___ mg No Longer Active 08/17/2018 [facility] Vancomycin 1 ea, Route: IV, ONCALL, Dosing Weight 54.545, kg, Start date: 08/16/18 22:00:00 ENVIRONMENTAL PROGRAM MANAGER, Duration: 10 day, Stop date: 08/26/18 21:59:00 ENVIRONMENTAL PROGRAM MANAGER, ABX Indication: Other (specify in Comments) Inactive 08/17/2018 [facility] LR IV 1,000 mL 1,000 mL, Rate: 100 ml/hr, Infuse over: 10 hr, Route: IV, Dosing Weight 54.545 kg, Total Volume: 1,000, Start date: 08/16/18 21:58:00 ENVIRONMENTAL PROGRAM MANAGER, Duration: 30 day, Stop date: 09/15/18 21:57:00 ENVIRONMENTAL PROGRAM MANAGER, 1.54, m2 No Longer Active 08/17/2018 [facility] cefepime 1 gm, Route: IVPB, [id number], Dosing Weight 54.545, kg, CrClNotes: (Same As: Maxipime) MEDICATION WASTE Product Size: 1000 mg Product Wasted: ___ mg No Longer Active 08/17/2018 [facility] Sodium Chloride 0.9% (Bolus) IV 1,000 mL, Infuse Over: 1 hr, Route: IV, ONCE, Priority: STAT, Dosing Weight 54.545 kg, Start date: 08/16/18 19:04:00 ENVIRONMENTAL PROGRAM MANAGER, Stop date: 08/16/18 19:04:00 ENVIRONMENTAL PROGRAM MANAGER Inactive 08/17/2018 [facility] Acetaminophen 650 mg, 2 tab, Route: PO, Drug form: TAB, ONCE, Dosing Weight 54.545, kg, Start date: 08/16/18 18:09:00 ENVIRONMENTAL PROGRAM MANAGER, Stop date: 08/16/18 18:09:00 CSTNotes: Do not exceed 4 gm/day. (Same as: Tylenol) Inactive 08/17/2018 [facility] Saline Flush 0.9% 10 mL, Route: IVP, Drug Form: INJ, Dosing Weight 54.545, kg, PRN, PRN Line Flush, Start date: 08/16/18 18:09:00 ENVIRONMENTAL PROGRAM MANAGER, Duration: 30 day, Stop date: 09/15/18 18:08:00 CSTNotes: (Same as: BD Posiflush) No Longer Active 08/17/2018 [facility] Macrodantin 1 capsule with food or milk Orally Active 50 mg Orally Once a day Anthony 08/04/2018 [id number] losartan 50 mg oral tablet 50 mg=1 tab, PO, Daily, 0 Refill(s) No Longer Active 07/25/2018 [facility] sennosides, INTERMEDIATE 8.6 MG Oral Tablet 17.2 mg=2 tab, PO, Daily, 0 Refill(s) Active 07/25/2018 [facility] polyethylene glycol 3350 oral powder for reconstitution PO, BID, 0 Refill(s) Active 07/25/2018 [facility] Lidocaine Hydrochloride 0.05 MG/MG Transdermal Patch [Lidoderm] 1 patch, TOP, Q24H, 0 Refill(s) Active 07/25/2018 [facility] heparin 5,000 unit=1 mL, SUB-Q, Q8H-01, 0 Refill(s) No Longer Active 07/25/2018 [facility] Docusate Sodium 100 MG Oral Capsule 100 mg=1 cap, PO, BID, 0 Refill(s) No Longer Active 07/25/2018 [facility] bisacodyl 5 mg oral enteric coated tablet 10 mg=2 tab, PO, Q24H, PRN Constipation, 0 Refill(s) No Longer Active 07/25/2018 [facility] Hydralazine Hydrochloride 10 MG Oral Tablet 10 mg=1 tab, PO, Q6H, 0 Refill(s) No Longer Active 07/25/2018 [facility] gabapentin 300 mg, 1 cap, Route: PO, Drug form: CAP, BID, Dosing Weight 59.091, kg, Start date: 07/25/18 9:00:00 CDT, Duration: 30 day, Stop date: 08/23/18 17:00:00 CSTNotes: (Same as: Neurontin) No Longer Active 07/25/2018 [facility] Hydralazine 10 mg, 0.5 mL, Route: IVP, Drug form: INJ, Q4H, Dosing Weight 59.091, kg, PRN Hypertension, Start date: 07/25/18 6:00:00 CDT, Duration: 30 day, Stop date: 08/24/18 5:59:00 CSTNotes: (Same as: Apresol ine) Push over 5 minutes Inactive 07/25/2018 [facility] sennosides, INTERMEDIATE 8.6 MG Oral Tablet 17.2 mg, 2 tab, Route: PO, Drug Form: TAB, Dosing Weight 59.091, kg, Daily, Start date: 07/24/18 9:00:00 CDT, Duration: 30 day, Stop date: 08/22/18 9:00:00 CSTNotes: (Same as: Senokot) No Longer Active 07/24/2018 [facility] Acetaminophen 1,000 mg, 2 tab, Route: PO, Drug form: TAB, Q6H, Dosing Weight 59.091, kg, Start date: 07/24/18 6:00:00 CDT, Duration: 30 day, Stop date: 08/23/18 0:00:00 CSTNotes: Max acetaminophen 4000 mg/day (4 g m/day). (Same as: Tylenol Extra Strength) No Longer Active 07/24/2018 [facility] Hydralazine 10 mg, 1 tab, Route: PO, Drug form: TAB, Q6H, Dosing Weight 59.091, kg, Start date: 07/24/18 6:00:00 CDT, Duration: 30 day, Stop date: 08/23/18 2:00:00 CSTNotes: (Same as: Apresoline) May interfere w/enteral feedings. Take With Food No Longer Active 07/24/2018 [facility] Hydralazine 20 mg, 1 mL, Route: IVP, Drug form: INJ, ONCE, Dosing Weight 59.091, kg, Start date: 07/24/18 1:45:00 CDT, Stop date: 07/24/18 1:45:00 CDTNotes: (Same as: Apresoline) Push over 5 minutes Inactive 07/24/2018 [facility] remove patch 1 patch, Route: TOP, Bedtime, Drug form: ERFILM, Start date: 07/23/18 21:00:00 CDT, Duration: 30 day, Stop date: 08/21/18 21:00:00 CSTNotes: Remove patch 12 hours after application each day. No Longer Active 07/24/2018 [facility] Oxycodone Hydrochloride 5 MG Oral Tablet 5 mg, 1 tab, Route: PO, Drug form: TAB, Q4H, Dosing Weight 59.091, kg, PRN Pain Score 7-10, Start date: 07/23/18 18:05:00 CDT, Duration: 30 day, Stop date: 08/22/18 18:04:00 CSTNotes: (Same as: Roxicodone) No Longer Active 07/23/2018 [facility] Acetaminophen 1,000 mg, 2 tab, Route: PO, Drug form: TAB, TID, Dosing Weight 59.091, kg, PRN Pain Score 1-3, Start date: 07/23/18 18:05:00 CDT, Duration: 30 day, Stop date: 08/22/18 18:04:00 CSTNotes: Max acetaminophen 4000 mg/day (4 gm/day). (Same as: Tylenol Extra Strength) No Longer Active 07/23/2018 [facility] Docusate 100 mg, 1 cap, Route: PO, Drug form: CAP, BID, Dosing Weight 59.091, kg, Start date: 07/23/18 17:00:00 CDT, Duration: 30 day, Stop date: 08/22/18 9:00:00 CSTNotes: (Same as: Colace) (Do Not Crush) No Longer Active 07/23/2018 [facility] Miralax 17 gm, 1 pkt, Route: PO, Drug form: PWDR, BID, Dosing Weight 59.091, kg, Start date: 07/23/18 17:00:00 CDT, Duration: 30 day, Stop date: 08/22/18 9:00:00 CSTNotes: Dissolve in 8 oz of water or juice. (Same as: Miralax) No Longer Active 07/23/2018 [facility] Protonix 40 mg, 1 tab, Route: PO, Drug form: ECTAB, Before Dinner, Start date: 07/23/18 16:30:00 CDT, Duration: 30 day, Stop date: 08/21/18 16:30:00 CSTNotes: Tablet should not be chewed or crushed. (Same as: Protonix) No Longer Active 07/23/2018 [facility] Myrbetriq 25 mg oral tablet, extended release 25 mg, 1 tab, Route: PO, Drug form: ERTAB, Daily, Dosing Weight 59.091, kg, Start date: 07/23/18 10:45:00 CDT, Duration: 30 day, Stop date: 08/22/18 9:00:00 CSTNotes: (Same as: Myrbetriq ER) Non-Formulary No Longer Active 07/23/2018 [facility] Imdur 30 mg, 1 tab, Route: PO, Drug form: ERTAB, QAM, Dosing Weight 59.091, kg, Start date: 07/23/18 9:00:00 CDT, Duration: 30 day, Stop date: 08/21/18 9:00:00 CSTNotes: (Same as:Imdur) "Do Not Crush" Take on empty stomach/ full glass of water. Do not crush Inactive 07/23/2018 [facility] Hydrochlorothiazide 12.5 MG / Losartan Potassium 50 MG Oral Tablet 1 tab, Route: PO, Drug Form: TAB, Dosing Weight 59.091, kg, Daily, Start date: 07/23/18 9:00:00 CDT, Duration: 30 day, Stop date: 08/21/18 9:00:00 ENVIRONMENTAL PROGRAM MANAGER Inactive 07/23/2018 [facility] Microzide 12.5 mg, 1 cap, Route: PO, Drug form: CAP, Daily, Start date: 07/23/18 9:00:00 CDT, Duration: 30 day, Stop date: 08/21/18 9:00:00 CSTNotes: (Same as: Microzide) With food. Inactive 07/23/2018 [facility] Aspirin 81 MG Enteric Coated Tablet 81 mg, 1 tab, Route: PO, Drug form: ECTAB, Daily, Dosing Weight 59.091, kg, Start date: 07/23/18 9:00:00 CDT, Duration: 30 day, Stop date: 08/21/18 9:00:00 CSTNotes: Do not crush or chew. (Same As: Ecotrin) No Longer Active 07/23/2018 [facility] Lidocaine Hydrochloride 0.05 MG/MG Transdermal Patch [Lidoderm] 1 patch, Route: TOP, Q24H, Drug form: FILM, Start date: 07/23/18 9:00:00 CDT, Duration: 30 day, Stop date: 08/21/18 9:00:00 CSTNotes: Apply only once for up to 12 hours in a 24-hour period (12 hours on and 12 hours off). (Same as: Lidoderm) "Remove old patch before application of new patch" No Longer Active 07/23/2018 [facility] Prednisone 5 mg, 1 tab, Route: PO, Drug form: TAB, Daily, Dosing Weight 59.091, kg, Start date: 07/23/18 9:00:00 CDT, Duration: 30 day, Stop date: 08/21/18 9:00:00 CSTNotes: Take with food. No Longer Active 07/23/2018 [facility] Sertraline 50 mg, 1 tab, Route: PO, Drug form: TAB, Daily, Dosing Weight 59.091, kg, Start date: 07/23/18 9:00:00 CDT, Duration: 30 day, Stop date: 08/21/18 9:00:00 CSTNotes: (Same as: Zoloft) No Longer Active 07/23/2018 [facility] Omeprazole 40 mg, Route: PO, Daily, Dosing Weight 59.091, kg, Start date: 07/23/18 9:00:00 CDT, Duration: 30 day, Stop date: 08/21/18 9:00:00 ENVIRONMENTAL PROGRAM MANAGER Inactive 07/23/2018 [facility] 24 HR mirabegron 25 MG Extended Release Tablet [Myrbetriq] 25 mg, 1 tab, Route: PO, Drug form: ERTAB, Daily, Dosing Weight 59.091, kg, Start date: 07/23/18 9:00:00 CDT, Duration: 30 day, Stop date: 08/21/18 9:00:00 CSTNotes: (Same as: Myrbetriq ER) Non-Formulary Inactive 07/23/2018 [facility] metoprolol extended release 50 mg, 1 tab, Route: PO, Drug form: ERTAB, Daily, Start date: 07/23/18 9:00:00 CDT, Duration: 30 day, Stop date: 08/21/18 9:00:00 CSTNotes: (Same as: Toprol XL) May split tab, but do not crush. Inactive 07/23/2018 [facility] Saline Flush 0.9% 10 ml, Route: IVP, Drug Form: INJ, Dosing Weight 59.091, kg, Q12H, Start date: 07/23/18 9:00:00 CDT, Duration: 30 day, Stop date: 08/21/18 21:00:00 CSTNotes: Same as: BD Posiflush Sterile No Longer Active 07/23/2018 [facility] Cozaar 50 mg, 1 tab, Route: PO, Drug form: TAB, Daily, Start date: 07/23/18 9:00:00 CDT, Duration: 30 day, Stop date: 08/21/18 9:00:00 CSTNotes: (Same as: Cozaar) No Longer Active 07/23/2018 [facility] Lyrica 50 mg, 1 cap, Route: PO, Drug form: CAP, Q8H, Start date: 07/23/18 8:00:00 CDT, Stop date: 07/24/18 21:00:00 CDTNotes: Same as Lyrica No Longer Active 07/23/2018 [facility] Thyroxine 25 microgram, 1 tab, Route: PO, Drug form: TAB, Q630AM, Dosing Weight 59.091, kg, Start date: 07/23/18 6:30:00 CDT, Duration: 30 day, Stop date: 08/21/18 6:30:00 CSTNotes: Take 1 hour before or 2 hours after meal; Enteral feeds may interefere with the absorption of this medication. (Same as:Levothroid) No Longer Active 07/23/2018 [facility] Acetaminophen 1,000 mg, 100 mL, Route: IVPB, Drug form: INJ, Q6H, Dosing Weight 59.091, kg, Start date: 07/23/18 6:00:00 CDT, Duration: 24 hr, Stop date: 07/24/18 0:00:00 CDTNotes: Infuse over 15 minutes Do not e xceed 4gm/day of acetaminophen MEDICATION WASTE Product Size: 1000 mg Product Wasted: ___ mg Inactive 07/23/2018 [facility] tramadol 50 mg oral tablet 50 mg, 1 tab, Route: PO, Drug form: TAB, Q6H, Start date: 07/23/18 6:00:00 CDT, Duration: 30 day, Stop date: 08/22/18 0:00:00 CSTNotes: Not to exceed 400mg/day. (Same As: Ultram) Inactive 07/23/2018 [facility] Oxycodone Hydrochloride 5 MG Oral Tablet 10 mg, 2 tab, Route: PO, Drug form: TAB, Q4H, Dosing Weight 59.091, kg, PRN Pain Score 7-10, Start date: 07/23/18 1:13:00 CDT, Duration: 30 day, Stop date: 08/22/18 1:12:00 CSTNotes: (Same as: Roxicodone) Inactive 07/23/2018 [facility] pregabalin 100 mg, Route: PO, Q8H, Dosing Weight 59.091, kg, Priority: NOW, Start date: 07/23/18 1:12:00 CDT, Duration: 48 hr, Stop date: 07/25/18 0:00:00 CDT Inactive 07/23/2018 [facility] Tramadol 100 mg, Route: PO, Drug form: TAB, Q6H, Dosing Weight 59.091, kg, Priority: NOW, Start date: 07/23/18 1:12:00 CDT, Duration: 30 day, Stop date: 08/22/18 0:00:00 ENVIRONMENTAL PROGRAM MANAGER Inactive 07/23/2018 [facility] Enoxaparin 30 mg, 0.3 mL, Route: SUB-Q, Drug form: INJ, [id number], Dosing Weight 59.091, kg, Start date: 07/23/18 1:00:00 CDT, Duration: 30 day, Stop date: 08/21/18 1:00:00 CSTNotes: (Same as: Lovenox) Inactive 07/23/2018 [facility] heparin 5,000 unit, 1 mL, Route: SUB-Q, Drug form: INJ, Q8H-01, Dosing Weight 59.091, kg, Priority: STAT, Start date: 07/23/18 0:57:00 CDT, Duration: 30 day, Stop date: 08/21/18 17:00:00 CSTNotes: porcine heparin No Longer Active 07/23/2018 [facility] Meclizine 25 mg, 1 tab, Route: PO, Drug form: TAB, ONCE, Dosing Weight 59.091, kg, PRN Dizziness, Start date: 07/23/18 0:36:00 CDTNotes: (Same as: Antivert) No Longer Active 07/23/2018 [facility] Nitroglycerin 0.4 MG Sublingual Tablet [Nitrostat] 0.4 mg, 1 tab, Route: SL, Drug form: TAB, Q5Min, Dosing Weight 59.091, kg, PRN Chest Pain, Start date: 07/23/18 0:36:00 CDT, Duration: 30 day, Stop date: 08/21/18 23:35:00 CSTNotes: (Same as:Nitroquick, Nitrostat) "Do Not Crush" Sublingual tablet No Longer Active 07/23/2018 [facility] gabapentin 300 MG Oral Capsule 300 mg=1 cap, PO, BID, # 90 cap, 1 Refill(s) No Longer Active 07/23/2018 [facility] Nitroglycerin 0.4 MG Sublingual Tablet [Nitrostat] 0.4 mg=1 tab, SL, Q5Min, PRN Chest Pain, # 100 tab, 0 Refill(s) Active 07/23/2018 [facility] clonazePAM 0.125 mg oral tablet, disintegrating 0.125 mg=1 tab, PO, Bedtime, # 90 tab, 0 Refill(s) No Longer Active 07/23/2018 [facility] predniSONE 5 mg oral tablet 5 mg=1 tab, PO, Daily, Give with food., # 14 tab, 0 Refill(s) Active 07/23/2018 [facility] Omeprazole 40 mg, PO, Daily, 0 Refill(s) Active 07/23/2018 [facility] levothyroxine 25 mcg (0.025 mg) oral tablet 25 microgram=1 tab, PO, Daily, # 90 tab, 0 Refill(s) Active 07/23/2018 [facility] meclizine 25 mg oral tablet 25 mg=1 tab, PO, ONCE, PRN for dizziness, # 60 tab, 0 Refill(s) No Longer Active 07/23/2018 [facility] Ciprofloxacin 250 MG Oral Tablet [Cipro] 250 mg=1 tab, PO, Q12H, # 14 tab, 0 Refill(s) No Longer Active 07/23/2018 [facility] 24 HR mirabegron 25 MG Extended Release Tablet [Myrbetriq] 25 mg=1 tab, PO, Daily, # 30 tab, 5 Refill(s) Active 07/23/2018 [facility] Aspirin 81 MG Enteric Coated Tablet 81 mg=1 tab, PO, Daily, # 90 tab, 3 Refill(s) Active 07/23/2018 [facility] ketOROLAC 30 mg/mL injectable solution 30 mg, 1 mL, Route: IM, Drug form: INJ, ONCE, Dosing Weight 59.091, kg, Priority: STAT, Start date: 07/23/18 0:11:00 CDT, Stop date: 07/23/18 0:11:00 CDTNotes: (Same as:Toradol) IV bolus must be given >15 seconds. Give IM administration slowly and deeply into the muscle. Not for use > 4 days MEDICATION WASTE Product Size: 30 mg Product Wasted: ___ mg Inactive 07/23/2018 [facility] Saline Flush 0.9% 10 ml, Route: IVP, Drug Form: INJ, Dosing Weight 59.091, kg, PRN, PRN Line Flush, Start date: 07/23/18 0:10:00 CDT, Duration: 30 day, Stop date: 08/21/18 23:09:00 CSTNotes: Same as: BD Posiflush Sterile No Longer Active 07/23/2018 [facility] Bisacodyl 10 mg, 2 tab, Route: PO, Drug form: ECTAB, Q24H, Dosing Weight 59.091, kg, PRN Constipation, Start date: 07/23/18 0:10:00 CDT, Duration: 30 day, Stop date: 08/22/18 0:09:00 CSTNotes: (Same As: Dulcolax, Correctol) (Do Not Crush) "Do Not Crush" No Longer Active 07/23/2018 [facility] Ondansetron 4 mg, 2 mL, Route: IVP, Drug form: INJ, Q24H, Dosing Weight 59.091, kg, PRN Nausea & Vomiting, Start date: 07/23/18 0:10:00 CDT, Duration: 30 day, Stop date: 08/22/18 0:09:00 CSTNotes: (Same as: Zofran) MEDICATION WASTE Product Size: 4 mg Product Wasted: ___ mg No Longer Active 07/23/2018 [facility] Docusate 100 mg, 1 cap, Route: PO, Drug form: CAP, BID, Dosing Weight 59.091, kg, PRN Constipation, Start date: 07/23/18 0:10:00 CDT, Duration: 30 day, Stop date: 08/22/18 0:09:00 CSTNotes: (Same as: Colace) (Do Not Crush) Inactive 07/23/2018 [facility] Morphine 4 mg, 1 mL, Route: IVP, Drug form: SOLN, ONCE, Dosing Weight 59.091, kg, Priority: STAT, Start date: 07/22/18 23:23:00 CDT, Stop date: 07/22/18 23:23:00 CDTNotes: (Same as:MORPhine Sulfate) No Longer Active 07/23/2018 [facility] Zofran 4 mg, 2 mL, Route: IVP, Drug form: INJ, ONCE, Dosing Weight 59.091, kg, Priority: STAT, Start date: 07/22/18 23:23:00 CDT, Stop date: 07/22/18 23:23:00 CDTNotes: (Same as: Zofran) MEDICATION WASTE Product Size: 4 mg Product Wasted: ___ mg No Longer Active 07/23/2018 [facility] iodixanol 75 mL, Route: IVP, Drug Form: SOLN, Dosing Weight 59.091, kg, ONCALL, STAT, Start date: 07/22/18 22:40:00 CDT, Duration: 1 doses or times, Dose=2.2ml/kg, Max unmb=506he -- "To be infused by Radiology Staff ONLY"Notes: (Same as: Marie). WASTE: F/P - Black; E - Municipal Trash Bin Inactive 07/23/2018 [facility] Isolyte S PH-7.4 (Bolus) IV 250 mL, Route: IV, ONCE, Dosing Weight 59.091 kg, Start date: 07/22/18 21:36:00 CDT, Stop date: 07/22/18 21:36:00 CDT Inactive 07/23/2018 [facility] Fentanyl 50 microgram, 1 mL, Route: IVP, Drug form: INJ, ONCE, Dosing Weight 59.091, kg, Priority: STAT, Start date: 07/22/18 15:07:00 CDT, Stop date: 07/22/18 15:07:00 CDTNotes: (Same as: Sublimaze) Preservative free. Inactive 07/22/2018 [facility] gabapentin 300 mg, 1 cap, Route: PO, Drug form: CAP, ONCE, Dosing Weight 59.091, kg, Start date: 07/22/18 15:07:00 CDT, Stop date: 07/22/18 15:07:00 CDTNotes: (Same as: Neurontin) Inactive 07/22/2018 [facility] Acetaminophen 975 mg, 3 tab, Route: PO, Drug form: TAB, ONCE, Dosing Weight 59.091, kg, Priority: STAT, Start date: 07/22/18 15:06:00 CDT, Stop date: 07/22/18 15:06:00 CDTNotes: Do not exceed 4 gm/day. (Same as: Tylenol) Inactive 07/22/2018 [facility] Fentanyl 50 microgram, Route: IVP, ONCE, Dosing Weight 59.091, kg, Priority: STAT, Start date: 07/22/18 12:13:00 CDT, Stop date: 07/22/18 12:13:00 CDT Inactive 07/22/2018 [facility] Sodium Chloride 0.9% (Bolus) IV 250 mL, Infuse Over: 1 hr, Route: IV, ONCE, Priority: STAT, Dosing Weight 59.091 kg, Start date: 07/22/18 12:13:00 CDT, Stop date: 07/22/18 12:13:00 CDT Inactive 07/22/2018 [facility] Saline Flush 0.9% 10 mL, Route: IVP, Drug Form: INJ, Dosing Weight 59.091, kg, PRN, PRN Line Flush, Start date: 07/22/18 12:13:00 CDT, Duration: 30 day, Stop date: 08/21/18 11:12:00 CSTNotes: (Same as: BD Posiflush) Inactive 07/22/2018 [facility] Myrbetriq 1 tablet Orally Active 25 MG Orally Once a day Anthony 06/20/2018 [id number] Clonazepam ODT 1 tablet on the tongue and allow to dissolve before bedtime Orally Active 0.125 MG Orally Once a day Anthony 05/23/2018 [id number] Isosorbide Mononitrate CR 1 tablet in the morning Orally Active 30 mg Orally Once a day Anthony 05/21/2018 [id number] Sucralfate 1 gm, 1 tab, Route: PO, Drug form: TAB, TID, Dosing Weight 59.091, kg, Start date: 05/17/18 9:00:00 CDT, Duration: 30 day, Stop date: 06/15/18 17:00:00 CDTNotes: May interfere w/enteral feeds - Take 1 hr before or 2 hr after antacids, dairy pdt, meals & minerals - On empty stomach. For patients unable to swallow tablet, dissolve in 10mL - 30mL of water or juice and stir before giving. (Same As: Carafate) Inactive 05/17/2018 [facility] Sertraline 50 mg, 1 tab, Route: PO, Drug form: TAB, BID, Dosing Weight 59.091, kg, Start date: 05/17/18 9:00:00 CDT, Duration: 30 day, Stop date: 06/15/18 17:00:00 CDTNotes: (Same as: Zoloft) Inactive 05/17/2018 [facility] Cozaar 50 mg, 1 tab, Route: PO, Drug form: TAB, Daily, Start date: 05/17/18 9:00:00 CDT, Duration: 30 day, Stop date: 06/15/18 9:00:00 CDTNotes: (Same as: Cozaar) Inactive 05/17/2018 [facility] Lopressor 25 mg, 1 tab, Route: PO, Drug form: ERTAB, Daily, Dosing Weight 59.091, kg, Start date: 05/17/18 9:00:00 CDT, Duration: 30 day, Stop date: 06/15/18 9:00:00 CDTNotes: (Same as: Toprol XL) Do Not Crush Inactive 05/17/2018 [facility] Imdur 30 mg, 1 tab, Route: PO, Drug form: ERTAB, QAM, Dosing Weight 59.091, kg, Start date: 05/17/18 9:00:00 CDT, Duration: 30 day, Stop date: 06/15/18 9:00:00 CDTNotes: (Same as:Imdur) "Do Not Crush" Take on empty stomach/ full glass of water. Do not crush Inactive 05/17/2018 [facility] Hydrochlorothiazide 12.5 MG / Losartan Potassium 50 MG Oral Tablet 1 tab, Route: PO, Drug Form: TAB, Dosing Weight 59.091, kg, Daily, Start date: 05/17/18 9:00:00 CDT, Duration: 30 day, Stop date: 06/15/18 9:00:00 CDT Inactive 05/17/2018 [facility] gabapentin 600 MG Oral Tablet [Neurontin] 600 mg, 2 cap, Route: PO, Drug form: CAP, Daily, Dosing Weight 59.091, kg, Start date: 05/17/18 9:00:00 CDT, Duration: 30 day, Stop date: 06/15/18 9:00:00 CDTNotes: (Same as: Neurontin) Inactive 05/17/2018 [facility] hydrochlorothiazide 12.5 mg, 1 tab, Route: PO, Drug form: TAB, Daily, Start date: 05/17/18 9:00:00 CDT, Duration: 30 day, Stop date: 06/15/18 9:00:00 CDTNotes: (Same as: Hydrodiuril). Give with food. Inactive 05/17/2018 [facility] Klonopin 0.25 mg, 0.5 tab, Route: PO, Drug form: TAB, BID, Dosing Weight 59.091, kg, Priority: NOW, Start date: 05/17/18 7:21:00 CDT, Duration: 30 day, Stop date: 06/15/18 21:00:00 CDTNotes: (Same As: KlonoPIN) Inactive 05/17/2018 [facility] Streptococcus pneumoniae serotype 1 capsular antigen diphtheria [id number] protein conjugate vaccine / Streptococcus pneumoniae serotype 14 capsular antigen diphtheria [id number] protein conjugate vaccine / Streptococcus pneumoniae serotype 18C capsular antigen d 0.5 mL, Route: IM, ONCALL, Start date: 05/16/18 16:05:13 CDT, Stop date: 06/15/18 16:00:13 CDT Inactive 05/16/2018 [facility] Tegretol 1/2 half tablet Orally Active 200 MG Orally daily Anthony 04/18/2018 [id number] Paxil 1 tablet in the morning Orally Active 20 mg Orally Once a day Anthony 12/19/2017 [id number]..53381 Diprolene 1 application to affected area Externally Active 0.05 % Externally Once a day Anthony 09/05/2017 [id number] Macrodantin 1 capsule with food or milk Orally Active 50 mg Orally Once a day Anthony 08/06/2017 2.16.840.1.220070.4.391.11.25279 Vantin 1 tablet Orally Active 200 MG Orally twice a day (bid) Anthony 07/24/2017 [id number] Pyridium 1 tablet after meals Orally Active 200 MG Orally twice a day (bid) Anthony 07/13/2017 2.16.840.1.668335.4.391.11.13828 Paxil 1 tablet in the morning Orally Active 10 MG Orally Once a day Anthony 07/05/2017 2.16.840.1.851755.4.391.11.23701 Paxil 1 tablet in the morning Orally Active 10 MG Orally Once a day Anthony 07/05/2017 2.16.840.1.317360.4.391.11.23021 Macrobid 1 capsule with food Orally Active 100 MG Orally every 12 hrs Anthony 05/24/2017 2.16.840.1.910854.4.391.11.87992 PredniSONE 1 tablet Orally Active 5 MG Orally Once a day Anthony 04/18/2017 2.16.840.1.335893.4.391.11.79619 Cipro 1 tablet Orally Active 250 MG Orally daily Anthony 04/18/2017 2.16.840.1.328812.4.391.11.29090 Cipro 1 tablet Orally Active 250 MG Orally daily Anthony 04/18/2017 2.16.840.1.062671.4.391.11.18173 Xarelto 1 tablet with food Orally Active 20 MG Orally Once a day Anthony 03/20/2017 2.16.840.1.046737.4.391.11.79404 Meclizine HCl 1 tablet Orally Active 12.5 MG Orally twice a day (bid) as needed (prn) Anthony 03/20/2017 2.16.840.1.242464.4.391.11.08168 Xarelto 1 tablet with food Orally Active 20 MG Orally Once a day Anthony 03/20/2017 2.16.840.1.874697.4.391.11.63472 Meclizine HCl 1 tablet Orally Active 12.5 MG Orally twice a day (bid) as needed (prn) Anthony 03/20/2017 [id number] Tylenol/Codeine #3 1 tablet as needed Orally Active 300-30 MG Orally every 6 hrs Anthony 02/27/2017 2.16.840.1.984728.4.391.11.16673 Cipro 1 tablet Orally Active 250 MG Orally daily Anthony 02/27/2017 2.16.840.1.079687.4.391.11 Spironolactone 1 tablet Orally Active 25 MG Orally Twice a day Anthony 02/27/2017 2.16.840.1.851800.4.391.11 Ciprofloxacin HCl 1 tablet Orally Active 250 MG Orally Twice a day Anthony 12/21/2016 2.16.840.1.650043.4.391.11 Celexa 2 tablets Orally Active 10 MG Orally Once a day Anthony 12/21/2016 2.16.840.1.675662.4.391.68 Celexa 2 tablets Orally Active 10 MG Orally Once a day Anthony 12/21/2016 2.16.840.1.432028.4.391..14892 Zoloft 2 TABLETS by mouth Active EQ 50MG BASE by mouth Once a day Anthony 12/21/2016 2.16.840.1.367712.4.391. Losartan Potassium 1 tablet Orally Active 50 MG Orally Once a day Anthony 12/04/2016 [id number] Losartan Potassium 1 tablet Orally Active 50 MG Orally Once a day Anthony 12/04/2016 2.16.840.1.916921.4.391. Metoprolol Succinate 1 tablet Orally Active 50 MG Orally daily Anthony 12/04/2016 2.16.840.1.784010.4.391.11 Macrobid 1 capsule with food Orally Active 100 MG Orally every 12 hrs Anthony 11/07/2016 2.16.840.1.949544.4.391.11.28953 Hydrochlorothiazide 1 capsule Orally Active 12.5 MG Orally Once a day Anthony 11/07/2016 2.16.840.1.520593.4.391.11.61714 Omeprazole 1 capsule Orally Active 40 MG Orally Once a day Anthony 07/19/2016 2.16.840.1.305310.4.391.11.22468 Levothyroxine Sodium 1 tablet Orally Active 25 MCG Orally Once a day Anthony 06/01/2016 2.16.840.1.220679.4.391.11.57537 Levothyroxine Sodium 1 tablet Orally Active 25 MCG Orally Once a day Anthony 06/01/2016 2.16.840.1.797987.4.391.11.10086 Levothyroxine Sodium 1 tablet Orally Active 50 MCG Orally Once a day Anthony 06/01/2016 2.16.840.1.020539.4.391.11.36440 PredniSONE 1 tablet Orally Active 10 mg Orally Once a day Anthony 06/01/2016 2.16.840.1.364180.4.391.11.24042 Levothyroxine Sodium 1 tablet Orally Active 50 MCG Orally Once a day Anthony 06/01/2016 [id number] Ciprofloxacin 500 MG Oral Tablet [Cipro] 500 mg=1 tab, PO, Q12H, X 7 day, # 14 tab, 0 Refill(s) Active 05/29/2016 [facility] predniSONE 20 mg oral tablet 20 mg=1 tab, PO, Daily, X 14 day, # 14 tab, 0 Refill(s) Active 05/29/2016 [facility] predniSONE 20 mg oral tablet 20 mg=1 tab, PO, Daily, X 14 day, # 14 tab, 0 Refill(s) Active 05/29/2016 [facility] Ciprofloxacin 500 MG Oral Tablet [Cipro] 500 mg=1 tab, PO, Q12H, X 7 day, # 14 tab, 0 Refill(s) Inactive 05/29/2016 [facility] 24 HR Metoprolol Tartrate 25 MG Extended Release Tablet [Toprol] 50 mg, 2 tab, Route: PO, Drug form: ERTAB, Daily, Priority: NOW, Start date: 05/28/16 11:57:00 CDT, Duration: 30 day, Stop date: 06/27/16 9:00:00 CDTNotes: (Same as: Toprol XL) Do Not Crush No Longer Active 05/28/2016 [facility] Morphine 2 mg, 1 mL, Route: IVP, Drug form: INJ, Q4H, Dosing Weight 60.682, kg, PRN Pain Score 7-10, Start date: 05/28/16 9:50:00 CDT, Duration: 30 day, Stop date: 06/27/16 9:49:00 CDTNotes: (Same as:MORPhine Sulfate) Inactive 05/28/2016 [facility] Acetaminophen 325 MG / Hydrocodone Bitartrate 10 MG Oral Tablet [[place] 10/325] 1 tab, Route: PO, Drug Form: TAB, Dosing Weight 60.682, kg, Q6H, PRN Pain Score 7-10, Start date: 05/28/16 9:47:00 CDT, Duration: 30 day, Stop date: 06/27/16 9:46:00 CDTNotes: Do not exceed 4gm/day of acetaminophen. (Same as: [place] 325/10) No Longer Active 05/28/2016 [facility] Zofran 4 mg, 2 mL, Route: IVP, Drug form: INJ, Q4H, Dosing Weight 60.682, kg, PRN Nausea, Start date: 05/28/16 9:46:00 CDT, Duration: 30 day, Stop date: 06/27/16 9:45:00 CDTNotes: (Same as: Zofran) MEDICATION WASTE Product Size: 4 mg Product Wasted: ___ mg No Longer Active 05/28/2016 [facility] Acetaminophen 325 MG / Hydrocodone Bitartrate 10 MG Oral Tablet [[place] 10/325] 1 tab, Route: PO, Drug Form: TAB, Dosing Weight 60.682, kg, Q6H, PRN Pain Score 4-6, Start date: 05/27/16 10:12:00 CDT, Duration: 30 day, Stop date: 06/26/16 10:11:00 CDTNotes: Do not exceed 4gm/day of acetaminophen. (Same as: [place] 325/10) No Longer Active 05/27/2016 [facility] Solu-Medrol 40 mg, 1 mL, Route: IVP, Drug form: INJ, Q8H, Dosing Weight 60.682, kg, Priority: NOW, Start date: 05/27/16 10:12:00 CDT, Duration: 30 day, Stop date: 06/26/16 8:00:00 CDTNotes: (Same as:Solu-MEDROL, A- Methapred) No Longer Active 05/27/2016 [facility] Hydrochlorothiazide 12.5 MG / Losartan Potassium 50 MG Oral Tablet 1 tab, Route: PO, Drug Form: TAB, Dosing Weight 59.091, kg, Daily, Start date: 05/27/16 9:00:00 CDT, Duration: 30 day, Stop date: 06/25/16 9:00:00 CDT No Longer Active 05/27/2016 [facility] gabapentin 600 MG Oral Tablet [Neurontin] 600 mg, 2 cap, Route: PO, Drug form: CAP, Daily, Dosing Weight 59.091, kg, Start date: 05/27/16 9:00:00 CDT, Duration: 30 day, Stop date: 06/25/16 9:00:00 CDTNotes: (Same as: Neurontin) No Longer Active 05/27/2016 [facility] Streptococcus pneumoniae serotype 1 capsular antigen diphtheria [id number] protein conjugate vaccine / Streptococcus pneumoniae serotype 14 capsular antigen diphtheria [id number] protein conjugate vaccine / Streptococcus pneumoniae serotype 18C capsular antigen d 0.5 mL, Route: IM, Drug Form: INJ, Daily, Start date: 05/27/16 9:00:00 CDT, Duration: 1 doses or times, Stop date: 05/27/16 9:00:00 CDTNotes: Lightly roll vial (DO NOT SHAKE) before administration. (Same as: Prevnar 13) Inactive 05/27/2016 [facility] Docusate 100 mg, 1 cap, Route: PO, Drug form: CAP, BID, Dosing Weight 60.682, kg, Start date: 05/27/16 9:00:00 CDT, Duration: 30 day, Stop date: 06/25/16 17:00:00 CDTNotes: (Same as: Colace) (Do Not Crush) No Longer Active 05/27/2016 [facility] Sodium Chloride 0.154 MEQ/ML Injectable Solution 1,000 mL, Rate: 75 ml/hr, Infuse over: 13.3 hr, Route: IV, Dosing Weight 60.682 kg, Total Volume: 1,000, Start date: 05/27/16 5:42:00 CDT, Duration: 30 day, Stop date: 06/26/16 5:41:00 CDT No Longer Active 05/27/2016 [facility] Saline Flush 0.9% 10 ml, Route: IVP, Drug Form: INJ, Dosing Weight 60.682, kg, PRN, PRN Line Flush, Start date: 05/27/16 5:42:00 CDT, Duration: 30 day, Stop date: 06/26/16 5:41:00 CDTNotes: (Same as: BD Posiflush) No Longer Active 05/27/2016 [facility] Ondansetron 4 mg, 2 mL, Route: IVP, Drug form: INJ, Q6H, Dosing Weight 60.682, kg, PRN Nausea & Vomiting, Start date: 05/27/16 5:42:00 CDT, Duration: 30 day, Stop date: 06/26/16 5:41:00 CDTNotes: (Same as: Debra) MEDICATION WASTE Product Size: 4 mg Product Wasted: ___ mg No Longer Active 05/27/2016 [facility] Acetaminophen 650 mg, 2 tab, Route: PO, Drug form: TAB, Q4H, Dosing Weight 60.682, kg, PRN Pain 1-3/Temp > 100.4 F, Start date: 05/27/16 5:42:00 CDT, Duration: 30 day, Stop date: 06/26/16 5:41:00 CDTNotes: Do not exceed 4 gm/day. (Same as: Tylenol) No Longer Active 05/27/2016 [facility] Ciprofloxacin 400 mg, 200 mL, Route: IVPB, Drug form: INJ, [id number], Dosing Weight 60.682, kg, Start date: 05/26/16 21:00:00 CDT, Duration: 30 day, Stop date: 06/25/16 9:00:00 CDTNotes: Do not refrigerate No Longer Active 05/27/2016 [facility] Simvastatin 20 mg, 1 tab, Route: PO, Drug form: TAB, Bedtime, Dosing Weight 59.091, kg, Start date: 05/26/16 21:00:00 CDT, Duration: 30 day, Stop date: 06/24/16 21:00:00 CDTNotes: (Same as: Zocor) No Longer Active 05/27/2016 [facility] heparin 5,000 unit, 1 mL, Route: SUB-Q, Drug form: INJ, Q12H, Dosing Weight 59.091, kg, Start date: 05/26/16 21:00:00 CDT, Duration: 30 day, Stop date: 06/25/16 9:00:00 CDTNotes: porcine heparin No Longer Active 05/27/2016 [facility] Ambien 5 mg, 1 tab, Route: PO, Drug form: TAB, Bedtime, Dosing Weight 60.682, kg, PRN Insomnia, Start date: 05/26/16 20:42:00 CDT, Duration: 30 day, Stop date: 06/25/16 20:41:00 CDTNotes: (Same As: Ambien) No Longer Active 05/27/2016 [facility] Tylenol 650 mg, 2 tab, Route: PO, Drug form: TAB, Q6H, Dosing Weight 60.682, kg, PRN For Temp > 100.4 F, Start date: 05/26/16 20:42:00 CDT, Duration: 30 day, Stop date: 06/25/16 20:41:00 CDTNotes: Do not exceed 4 gm/day. (Same as: Tylenol) No Longer Active 05/27/2016 [facility] Sucralfate 1 gm, 1 tab, Route: PO, Drug form: TAB, TID, Dosing Weight 59.091, kg, Start date: 05/26/16 17:00:00 CDT, Duration: 30 day, Stop date: 06/25/16 13:00:00 CDTNotes: May interfere w/enteral feeds - Take 1 hr before or 2 hr after antacids, dairy pdt, meals & minerals - On empty stomach. (Same As: Carafate) No Longer Active 05/26/2016 [facility] Sertraline 50 mg, 1 tab, Route: PO, Drug form: TAB, BID, Dosing Weight 59.091, kg, Start date: 05/26/16 17:00:00 CDT, Duration: 30 day, Stop date: 06/25/16 9:00:00 CDTNotes: (Same as: Zoloft) No Longer Active 05/26/2016 [facility] Tramadol 50 mg, 1 tab, Route: PO, Drug form: TAB, Q6H, Dosing Weight 60.682, kg, PRN Pain Score 1-3, Start date: 05/26/16 15:10:00 CDT, Stop date: 06/25/16 15:09:00 CDTNotes: Not to exceed 400mg/day. (Same As: Ultram) No Longer Active 05/26/2016 [facility] Morphine 2 mg, 1 mL, Route: IVP, Drug form: INJ, Q2H, Dosing Weight 60.682, kg, PRN Pain Score 7-10, Start date: 05/26/16 15:10:00 CDT, Duration: 30 day, Stop date: 06/25/16 15:09:00 CDTNotes: (Same as:MORPhine Sulfate) No Longer Active 05/26/2016 [facility] 24 HR Metoprolol Tartrate 25 MG Extended Release Tablet [Toprol] 25 mg, 1 tab, Route: PO, Drug form: ERTAB, Daily, Start date: 05/26/16 15:00:00 CDT, Duration: 30 day, Stop date: 06/25/16 9:00:00 CDTNotes: (Same as: Toprol XL) Do Not Crush No Longer Active 05/26/2016 [facility] Imdur 30 mg, 1 tab, Route: PO, Drug form: ERTAB, QAM, Dosing Weight 59.091, kg, Start date: 05/26/16 15:00:00 CDT, Duration: 30 day, Stop date: 06/25/16 9:00:00 CDTNotes: (Same as:Imdur) "Do Not Crush" Take on empty stomach/ full glass of water. Do not crush No Longer Active 05/26/2016 [facility] Cozaar 50 mg, 1 tab, Route: PO, Drug form: TAB, Daily, Start date: 05/26/16 15:00:00 CDT, Duration: 30 day, Stop date: 06/25/16 9:00:00 CDTNotes: (Same as: Cozaar) No Longer Active 05/26/2016 [facility] Microzide 12.5 mg, 1 cap, Route: PO, Drug form: CAP, Daily, Start date: 05/26/16 15:00:00 CDT, Duration: 30 day, Stop date: 06/25/16 9:00:00 CDTNotes: (Same as: Microzide) With food. No Longer Active 05/26/2016 [facility] Sucralfate 1 gm, PO, TID, # 200 ml, 0 Refill(s) Active 05/26/2016 [facility] Simvastatin 20 mg=1 tab, PO, Bedtime, # 30 tab, 0 Refill(s) No Longer Active 05/26/2016 [facility] Hydrochlorothiazide 12.5 MG / Losartan Potassium 50 MG Oral Tablet 1 tab, PO, Daily, # 30 tab, 0 Refill(s) Active 05/26/2016 [facility] sertraline 50 mg oral tablet 50 mg=1 tab, PO, BID, 0 Refill(s) Active 05/26/2016 [facility] Trimethoprim 1 tablet Orally Active 100 mg Orally Once a day Anthony 05/17/2016 [id number] Cyclobenzaprine HCl 1 tablet Orally Active 10 mg Orally Three times a day Anthony 03/30/2016 2.16.840.1.183423.4.391.11.92728 Cyclobenzaprine HCl 1 tablet Orally Active 10 mg Orally Three times a day Anthony 03/30/2016 2.16.840.1.734457.4.391.11.98692 Macrobid 1 capsule with food Orally Active 100 mg Orally every 12 hrs Anthony 12/06/2015 2.16.840.1.602411.4.391.11.11898 Cipro 1 tablet Orally Active 250 MG Orally daily Anthony 11/30/2015 2.16.840.1.265114.4.391.11.08321 Pyridium 1 tablet after meals Orally Active 200 MG Orally Three times a day Anthony 11/19/2015 2.16.840.1.134308.4.391.11.81088 Cipro 1 tablet Orally Active 500 mg Orally Twice a day Anthony 11/15/2015 2.16.840.1.739809.4.391.11.77973 Oxybutynin Chloride as directed Orally Active 5 MG Orally Once a day Anthony 2015 2.16.840.1.207128.4.391.11.95606 Oxybutynin Chloride 1 tablet Orally Active 5 MG Orally daily Anthony 08/30/2015 2.16.840.1.937657.4.391.11.38904 Pyridium 1 tablet after meals Orally Active 200 MG Orally Three times a day prn Anthony 08/26/2015 2.16.840.1.746109.4.391.11.53941 Cipro 2 tablets Orally twicw daily for 10 days then 1 daily for 3 months Active 250 MG Orally twicw daily for 10 days then 1 daily for 3 months every 12 hrs Anthony 08/14/2015 2.16.840.1.231420.4.391.11.18205 Nitrofurantoin as directed Orally Active 50 mg Orally Once a day Anthony 08/09/2015 2.16.840.1.845543.4.391..29660 Macrobid 1 capsule with food Orally Active 100 mg Orally every 12 hrs Anthony 08/09/2015 2.16.840.1.810226.4.391.11.01775 Pyridium 1 tablet after meals Orally Active 200 MG Orally Three times a day Anthony 08/09/2015 2.16.840.1.967690.4.391.11.03800 Ceftin 1 tablet Orally Active 500 mg Orally Twice a day Anthony 07/15/2015 2.16.840.1.917061.4.391.11.17808 Bactroban 1 application to affected area Externally Active 2 % Externally Three times a day Anthony 04/05/2015 2.16.840.1.344145.4.391.11.93645 Nitrostat as directed Sublingual Active 0.4 MG Sublingual as needed (prn) Anthony 12/15/2014 2.16.840.1.247938.4.391.11.78886 Nitrostat as directed Sublingual Active 0.4 MG Sublingual as needed (prn) Anthony 12/15/2014 2.16.840.1.314297.4.391.11.06637 Cyclobenzaprine HCl 1 tablet by mouth Active 10MG by mouth once a day Anthony 08/07/2014 2.16.840.1.910786.4.391.11.70326 Cyclobenzaprine HCl 1 tablet by mouth Active 10MG by mouth once a day Anthony 07/19/2014 2.16.840.1.013096.4.391.11.89716 Cipro 1 tablet Orally Active 250 MG Orally Twice a day Anthony 06/15/2014 2.16.840.1.277207.4.391.11.12654 Premarin as directed Vaginal Active 0.625 MG/GM Vaginal every day (qd) Anthony 05/11/2014 2.16.840.1.948293.4.391.11.68788 Premarin 1 tablet Orally Active 1.25 MG Orally Daily for Three Weeks, 1 Week off Anthony 05/11/2014 2.16.840.1.841973.4.391.11.94755 Synthroid 1 tablet on an empty stomach in the morning Orally Active 50 MCG Orally Once a day Anthony 05/11/2014 2.16.840.1.481338.4.391.11.14695 omeprazole ER 20 mg capsule,extended release 1 capsule by mouth Active 20 mg by mouth every day (qd) Anthony 06/04/2013 2.16.840.1.615149.4.391.11.06129 folic acid 1 mg tablet 1 tablet by mouth Active 1 mg mg by mouth every day (qd) Anthony 04/03/2012 2.16.840.1.001292.4.391.11.21426 Metoprolol Succinate ER 25 mg 24 hr Tab 1 tablet by mouth Active 25 mg by mouth every day (qd) Anthony 04/03/2012 [id number] Metoprolol Succinate ER 25 mg 24 hr Tab 1 tablet by mouth Active 25 mg by mouth every day (qd) Anthony 04/03/2012 [id number] estradiol 0.25 mg, 0.25 tab, Route: PO, Drug form: TAB, Daily, Start date: 04/01/12 9:00:00, Duration: 30 day, Stop date: 04/30/12 9:00:00 PO No Longer Active [facility] 04/01/2012 [facility] Fosamax 10 mg, 1 tab, Route: PO, Drug form: TAB, Q630AM, Start date: 04/01/12 6:30:00, Duration: 30 day, Stop date: 04/30/12 6:30:00 PO No Longer Active [facility] 04/01/2012 [facility] simvastatin 10 mg, 1 tab, Route: PO, Drug form: TAB, Bedtime, Start date: 03/31/12 21:00:00, Duration: 30 day, Stop date: 04/29/12 21:00:00 PO No Longer Active [facility] 04/01/2012 [facility] cyclobenzaprine 10 mg, 1 tab, Route: PO, Drug form: TAB, Bedtime, Start date: 03/31/12 21:00:00, Duration: 30 day, Stop date: 04/29/12 21:00:00 PO No Longer Active [facility] 04/01/2012 [facility] Imdur 30 mg, 1 tab, Route: PO, Drug form: ERTAB, QAM, Start date: 03/31/12 12:00:00, Duration: 30 day, Stop date: 04/30/12 9:00:00 PO No Longer Active [facility] 03/31/2012 [facility] Toprol-XL 25 mg oral tablet, extended release 25 mg, 1 tab, Route: PO, Drug form: ERTAB, Daily, Start date: 03/31/12 12:00:00, Duration: 30 day, Stop date: 04/30/12 9:00:00 PO No Longer Active [facility] 03/31/2012 [facility] Neurontin 600 mg oral tablet 600 mg, 2 cap, Route: PO, Drug form: CAP, BID, Start date: 03/31/12 12:00:00, Duration: 30 day, Stop date: 04/30/12 9:00:00 PO No Longer Active [facility] 03/31/2012 [facility] folic acid 1 mg, 1 tab, Route: PO, Drug form: TAB, Daily, Start date: 03/31/12 12:00:00, Duration: 30 day, Stop date: 04/30/12 9:00:00 PO No Longer Active [facility] 03/31/2012 [facility] potassium chloride 40 mEq, 2 tab, Route: PO, Drug form: ERTAB, ONCE, Start date: 03/31/12 11:17:00, Stop date: 03/31/12 11:17:00 PO No Longer Active [facility] 03/31/2012 [facility] Sodium Chloride 0.9% IV 1,000 mL 1,000 mL, Rate: 125 ml/hr, Infuse over: 8 hr, Route: IV, Dosing Weight 59.091 kg, Total Volume: 1,000, Start date: 03/30/12 23:13:00, Stop date: 04/29/12 23:12:00 IV No Longer Active [facility] 03/31/2012 [facility] Restoril 15 mg, 1 cap, Route: PO, Drug form: CAP, Bedtime, PRN Sleep, Start date: 03/30/12 23:12:00, Duration: 30 day, Stop date: 04/29/12 23:11:00 PO No Longer Active [facility] 03/31/2012 [facility] Hyzaar 50 mg-12.5 mg oral tablet 1 tab, PO, Daily, 30 tab, Substitution Allowed, Soft Stop, TAB PO Active 03/31/2012 [facility] Maxzide 37.5 mg-25 mg oral tablet PO, Daily, Substitution Allowed, Soft Stop, TAB PO No Longer Active 03/31/2012 [facility] normal saline 0.9% IV 1,000 mL 1,000 mL, Rate: 125 ml/hr, Infuse over: 8 hr, Route: IV, Dosing Weight 59.091 kg, Total Volume: 1,000, Start date: 03/30/12 22:29:00, Duration: 30 day, Stop date: 04/29/12 22:28:00 IV No Longer Active [facility] 03/31/2012 [facility] cyclobenzaprine 10 mg, PO, Bedtime, Substitution Allowed, TAB PO Active [facility] 03/31/2012 [facility] metoprolol 25 mg oral tablet, extended release 25 mg, PO, Daily, 30 tab, Substitution Allowed PO Active [facility] 03/31/2012 [facility] folic acid 1 mg, PO, Daily, Substitution Allowed, TAB PO Active [facility] 03/31/2012 [facility] alendronate 70 mg, PO, QSun, Substitution Allowed, CAP PO Active [facility] 03/31/2012 [facility] sertraline 100 mg oral tablet 100 mg, 1 tab, PO, Daily, 30 tab, Substitution Allowed, TAB PO Active 03/31/2012 [facility] estradiol 0.25 mg, PO, Daily, Substitution Allowed, TAB PO Active [facility] 03/31/2012 [facility] Neurontin 600 mg oral tablet 600 mg, 1 tab, PO, BID, Substitution Allowed, TAB PO Active [facility] 03/31/2012 [facility] simvastatin 10 mg, PO, Bedtime, 30 tab, Substitution Allowed PO Active [facility] 03/31/2012 [facility] Imdur 30 mg oral tablet, extended release 30 mg, 1 tab, PO, QAM, 30 tab, Substitution Allowed, ERTAB PO Active [facility] 03/31/2012 [facility] nitroglycerin 0.4 mg sublingual tablet 0.4 mg, 1 tab, Route: SL, Drug form: TAB, Q5Min, PRN Chest Pain, Start date: 03/30/12 21:53:00, Duration: 30 day, Stop date: 04/29/12 21:52:00 SL No Longer Active [facility] 03/31/2012 [facility] atropine 0.5 mg, 5 mL, Route: IVP, Drug form: INJ, PRN, PRN Bradycardia, Start date: 03/30/12 21:53:00, Duration: 30 day, Stop date: 04/29/12 21:52:00 IVP No Longer Active [facility] 03/31/2012 [facility] D5NS + KCL 20mEq/L 1000ml (Premix) 1,000 mL 1,000 mL, Rate: 40 ml/hr, Infuse over: 25 hr, Route: IV, Dosing Weight 59.091 kg, Total Volume: 1,000, Start date: 03/30/12 21:40:00, Duration: 30 day, Stop date: 04/29/12 21:39:00 IV No Longer Active [facility] 03/31/2012 [facility] Saline Flush 0.9% 5 ml, Route: IVP, Drug Form: INJ, PRN, PRN Line Flush, Start date: 03/30/12 21:40:00, Duration: 30 day, Stop date: 04/29/12 21:39:00 IVP No Longer Active [facility] 03/31/2012 [facility] ondansetron 4 mg, 2 mL, Route: IVP, Drug form: INJ, Q6H, PRN Nausea & Vomiting, Start date: 03/30/12 21:40:00, Duration: 30 day, Stop date: 04/29/12 21:39:00 IVP No Longer Active [facility] 03/31/2012 [facility] potassium chloride 40 mEq, 2 tab, Route: PO, Drug form: ERTAB, ONCE, Priority: STAT, Start date: 03/30/12 18:47:00, Stop date: 03/30/12 18:47:00 PO No Longer Active [facility] 03/30/2012 [facility] ondansetron 4 mg, Route: IVP, Drug form: INJ, ONCE, Priority: STAT, Start date: 03/30/12 17:55:00, Stop date: 03/30/12 17:55:00 IVP No Longer Active [facility] 03/30/2012 [facility] NS (Bolus) IV 500 mL 500 mL, Rate: 100 ml/hr, Infuse over: 5 hr, Route: IV, Dosing Weight 59 kg, Total Volume: 500, Start date: 03/30/12 17:54:00, Duration: 30 day, Stop date: 04/29/12 17:53:00 IV No Longer Active [facility] 03/30/2012 [facility] Saline Flush 0.9% 5 ml, Route: IVP, Drug Form: INJ, PRN, PRN Line Flush, Start date: 03/30/12 17:47:00, Duration: 24 hr, Stop date: 03/31/12 17:46:00 IVP No Longer Active [place] 03/30/2012 [facility] isosorbide mononitrate ER 30 mg Tab 1 tablet by mouth Active 30 mg mg by mouth every day (qd) [place] 07/17/2011 [id number] losartan-hydrochlorothiazide 50 mg-12.5 mg Tab 1 tablet by mouth Active 50-12.5 mg mg by mouth once a day [place] 07/17/2011 [id number] isosorbide mononitrate ER 30 mg Tab 1 tablet by mouth Active 30 mg mg by mouth every day (qd) [place] 07/17/2011 [id number] losartan-hydrochlorothiazide 50 mg-12.5 mg Tab 1 tablet by mouth Active 50-12.5 mg mg by mouth once a day Anthony 07/17/2011 [id number] Zocor 20 mg Tab 1 tablet by mouth Active 20 mg mg by mouth once every night Anthony 04/19/2011 [id number] pneumococcal 23-valent vaccine 0.5 ml, Route: IM, Drug Form: INJ, ONCE, Start date: 09/07/09 12:00:00, Stop date: 09/07/09 12:00:00 IM No Longer Active Anthony 09/07/2009 [facility] Zoloft 1 tablet by mouth Active 100 MG by mouth Once a day Anthony 05/27/2009 [id number] Zoloft TABLET; ORAL BID Active EQ 50MG BASE BID BID Anthony 05/27/2009 [id number] Neurontin 1 tablet by mouth Active 600MG by mouth twice a day (bid) Anthony 12/11/2008 [id number] Metoprolol Succinate ER TAKE 1 TABLET BY MOUTH ONCE A DAY Orally Active 50 Orally Once a day Anthony [id number] Hydrochlorothiazide 1 capsule Orally Active 12.5 MG Orally Once a day Anthony [id number] PredniSONE 1 tablet Orally Active 5 MG Orally Once a day Anthony [id number] Omeprazole 1 capsule Orally Active 40 MG Orally Once a day Anthony [id number] Gabapentin TAKE 1 TABLET BY MOUTH TWICE DAILY NA Active 600 Anthony [id number]. Sucralfate 1 tablet on an empty stomach Orally Active 1 GM Orally Twice a day Anthony [id number] Xarelto not defined NA Active Anthony 11.09.830.1.550075.4.391 Spironolactone 1 tablet Orally Active 25 MG Orally Twice a day Anthony [id number] PredniSONE 1 tablet Orally Active 5 MG Orally Once a day Anthony [id number] Omeprazole 1 capsule Orally Active 40 Orally Once a day Anthony [id number] Sucralfate 1 tablet on an empty stomach Orally Active 1 GM Orally Twice a day Anhtony 11.09.830.1.463466.4.391 Xarelto 1 tablet with food Orally Active 20 MG Orally Once a day Anthony [id number] Macrodantin 1 capsule with food or milk Orally Active 50 mg Orally Once a day Anthony [id number] Cipro 1 TABLET DAILY ORALLY 90 DAYS NA Active 250 MG Anthony [id number] Losartan Potassium-HCTZ TAKE 1 TABLET BY MOUTH EVERY DAY NA Active 0 Anthony [id number] Paxil 1 tablet in the morning Orally Active 20 MG Orally Once a day Anthony [id number] Paxil 1 tablet in the morning Orally Active 10 MG Orally Once a day Thomas 2.840.1.267504.4.391.11 Levothyroxine Sodium 1 tablet Orally Active 25 MCG Orally Once a day Anthony [id number] Myrbetriq 1 tablet Orally Active 25 MG Orally Once a day Anthony [id number] Levothyroxine Sodium 1 tablet Orally Active 50 MCG Orally Once a day Anthony [id number]1 Tegretol 1/2 half tablet Orally Active 200 MG Orally daily Anthony 840.1.582681.4.391. Losartan Potassium-HCTZ 1 tablet Orally Active 50-12.5 MG Orally Once a day Anthony 11.09.830.1.703320.4.391. Isosorbide Mononitrate CR 1 tablet in the morning Orally Active 30 mg Orally Once a day Anthony 11.09.830.1.343917.4.391. Gabapentin 1 capsule Orally Active 300 MG Orally twice a day (bid) Anthony 11.09.830.1.567071.4.391. Meclizine HCl 1 tablet Orally Active 12.5 MG Orally twice a day (bid) Anthony [id number]. Naproxen 1 tablet with food or milk as needed Orally Active 500 MG Orally every 12 hrs Anthony 840.1.974671.4.391. Sertraline HCl 1 tablet Orally Active 25 MG Orally once a day Anthony 11.09.830.1.736200.4.391.11 Aspir-81 1 tablet Orally Active 81 MG Orally Once a day Anthony 840.1.616350.4.391.11 Gabapentin 1/2 half tablet Orally Active 300 MG Orally twice a day (bid) Anthony 840.1.999966.4.391. Cyclobenzaprine HCl TAKE 1 TABLET DAILY NA Active 10MG Anthony 11.09.830.1.670867.4.391. Levothyroxine Sodium 1 tablet Orally Active 50 MCG Orally Once a day Anthony 11.09.830.1.365040.4.391. Omeprazole 1 capsule Orally Active 20 mg Orally Once a day Anthony 11.09.830.1.993833.4.391. Cyclobenzaprine HCl 1 tablet Orally Active 10 MG Orally Three times a day Anthony 11.09.830.1.353349.4.391. Omeprazole 1 capsule Orally Active 20 mg Orally Once a day Anthony 11.09.830.1.215105.4.391 Cipro 2 tablets Orally Active 250 MG Orally every 12 hrs Anthony 11.09.830.1.860047.4.391 Metoprolol Succinate ER TAKE 1 TABLET BY MOUTH EVERY DAY NA Active 25 Anthony 11.09.830.1.696944.4.391 AZO Cranberry Unknown Orally Active 250-30 MG Orally Anthony 11.09.830.1.420802.4.391 Zoloft TABLET; ORAL BID Active EQ 50MG BASE BID BID Anthony 11.09.830.1.387732.4.391 Simvastatin 1 tablet in the evening Orally Active 20 MG Orally Once a day Anthony 11.09.830.1.535260.4.391 Gabapentin 1 tablet intradermally Active 600 intradermally twice a day (bid) Anthony 11.09.830.1.041160.4.391 Phenazopyridine HCl 1 tablet after meals Orally Active 200 MG Orally Three times a day Anthony 11.09.830.1.580977.4.391. Ciprofloxacin 1 tablet Orally Active 500 mg Orally twice a day (bid) Anthony 840.1.358708.4.391. Simvastatin TAKE 1 TABLET BY MOUTH ONCE DAILY AT NIGHT NA Active 20 Anthony 11.09.830.1.125588.4.391 PredniSONE 1 tablet Orally Active 10 MG Orally Once a day Anthony 11.09.830.1.396686.4.391 Trimethoprim 1 tablet Orally Active 100 MG Orally Once a day Anthony 11.09.830.1.683005.4.391 Losartan Potassium-HCTZ 1 tablet Orally Active 50-12.5 MG Orally Once a day Anthony 11.09.830.1.938290.4.391 Metoprolol Succinate ER 1 tablet Orally Active 25 Orally Once a day Anthony 11.09.8301.760255.4.391 Zoloft 2 TABLETS by mouth Active EQ 50MG BASE by mouth Once a day Anthony 11.09.8301.985589.4.391 Isosorbide Mononitrate CR TAKE 1 TABLET BY MOUTH EVERY DAY IN THE MORNING Orally Active 30 Orally Once a day Anthony 11.09.8301.614211.4391 Losartan Potassium-HCTZ take 1 tablet by mouth every day Orally Active 50-12.5 MG Orally Once a day Anthony 11.09.8301.416611.4391 Sertraline HCl 1 tablet Orally Active 50 MG Orally Once a day Anthony 11.09.830.1.368050.4391 Cipro 1 tablet Orally Active 500 MG Orally TWICE A DAY FOR 10 DAYS Anthony 1.477761.4391 Ondansetron 1 tablet on the tongue and allow to dissolve as needed Orally Active 4 mg Orally every 6 hrs Anthony 11.09.8301.132733.4.391 Tramadol HCl 1 tablet as needed Orally Active 50 mg Orally as needed (prn) Anthony 11.09.830.1.916371.4.391 Eliquis 2.5 mg tablet not defined NA Active twice a day (bid) Anthony 11.09.830.1.355511.4391 Melatonin 2 tablet at bedtime as needed with food Orally Active 3 MG Orally once every night Anthony 11.09.830.1.946132.4.391 Omeprazole 1 capsule Orally Active 40 MG Orally Once a day Anthony 11.09.830.1.837251.4391 Paxil 1 TABLET IN THE MORNING ONCE A DAY ORALLY 30 DAY(S) NA Active 20 mg Anthony 11.09.830.1.146560.[address] 1 TABLET ON THE TONGUE AND ALLOW TO DISSOLVE ONCE DAILY BEFORE BEDTIME NA Active 0.125 Anthony 11.09.830.1.543054.4.391 Omeprazole 1 capsule Orally Active 20 MG Orally Once a day Anthony 11.09.830.1.506878.4.391 Sennosides 2 tablets at bedtime as needed Orally Active 8.6 MG Orally as needed (prn) Anthony .1.727399.4 Folic Acid 1 Mg Tablet Daily Active [facility] Gabapentin 300 Mg Capsule Twice A Day Active [facility] Isosorbide Mononitrate (Isosorbide Mononitrate Er) 30 Mg Tab.er.24h Daily Active [facility] Losartan/Hydrochlorothiazide (Losartan-Hctz 50-12.5 Mg Tab) 1 Each Tablet Daily Active [facility] Nitroglycerin 0.4 Mg Tab.subl Every 5 Minutes as needed for Chest Pain Active [facility] Omeprazole 20 Mg Capsule.dr Daily Active [facility] Sertraline Hcl 50 Mg Tablet Daily Active [facility] Simvastatin 20 Mg Tablet Today At 9:00PM Active [facility] Allergies, Adverse Reactions, Alerts Substance Category Reaction Severity Reaction type Status Date Reported Comments Source Sulfa Adverse Reaction Info Not Available Adverse Reaction Active 04/23/[id number]. morphine Adverse Reaction Info Not Available Adverse Reaction Active 04/23/2019 [id number] sulfa drugs Assertion Drug allergy Active [facility] Immunizations Immunization Date Given Site Status Last Updated Comments Source pneumococcal 23-valent vaccine 08/21/2018 Buttock completed Nura [facility] Influenza Vaccine 08/06/2017 completed [id number] pneumococcal 13-valent vaccine 05/27/2016 Left Deltoid completed Tiffanie [facility] pneumococcal 23-valent vaccine 09/07/2009 Left Arm completed Elvis [facility] pneumococcal 23-valent vaccine 09/07/2009 completed Elvis [facility] Results Order Name Results Value Reference Range Date Interpretation Comments Source Gram Stain Report Gram Stain Performed By: [facility] 04/17/2019 [facility] Culture: Respiratory w/Gram Stain Normal Respiratory Megan Isolated 04/17/2019 [facility] CHEM PANEL BUN 25 7 - 22 04/17/2019 [facility] CHEM PANEL Glucose Lvl 122 70 - 99 04/17/2019 [facility] CHEM PANEL Sodium Lvl 136 135 - 145 04/17/2019 [facility] CHEM PANEL Creatinine Lvl 1.11 0.50 - 1.40 04/17/2019 [facility] CHEM PANEL CO2 26 24 - 32 04/17/2019 [facility] CHEM PANEL Chloride Lvl 104 95 - 109 04/17/2019 [facility] CHEM PANEL Potassium Lvl 3.8 3.5 - 5.1 04/17/2019 [facility] CHEM PANEL Calcium Lvl 7.9 8.5 - 10.5 04/17/2019 [facility] CHEM PANEL AGAP 9.8 10.0 - 20.0 04/17/2019 [facility] CHEM PANEL eGFR 44 04/17/2019 Result Comment: The eGFR is calculated using the CKD-EPI formula. In most young, healthy individuals the eGFR will be >90 mL/min/1.73m2. The eGFR declines with age. An eGFR of 60-89 may be normal in some populations, particularly the elderly, for whom the CKD-EPI formula has not been extensively validated. Use of the eGFR is not recommended in the following populations:

Individuals with unstable creatinine concentrations, including patients and those with serious co-morbid conditions.

Patients with extremes in muscle mass or diet.

The data above are obtained from the National Kidney Disease Education Program (NKDEP) which additionally recommends that when the eGFR is used in patients with extremes of body mass index for purposes of drug dosing, the eGFR should be multiplied by the estimated BMI. [facility] Hgb 8.1 12.0 - 16.0 04/17/2019 [facility] HEMATOLOGY Hct 24.2 36.0 - 48.0 04/17/2019 [facility] WBC 7.4 3.7 - 10.4 04/17/2019 [facility] RBC 2.59 4.20 - 5.40 04/17/2019 [facility] Platelet 263 133 - 450 04/17/2019 [facility] MCHC 33.5 32.0 - 36.0 04/17/2019 [facility] RDW 12.9 11.5 - 14.5 04/17/2019 [facility] MCH 31.3 27.0 - 31.0 04/17/2019 [facility] MCV 93.4 80.0 - 98.0 04/17/2019 [facility] MPV 7.3 7.4 - 10.4 04/17/2019 [facility] Eosinophils # 0.2 0.0 - 0.5 04/17/2019 [facility] HEMATOLOGY Eosinophils 2.4 0.0 - 4.0 04/17/2019 [facility] Monocytes # 0.7 0.0 - 0.8 04/17/2019 [facility] Lymphocytes # 1.5 1.0 - 5.5 04/17/2019 [facility] HEMATOLOGY Neutrophils # 4.9 1.5 - 8.1 04/17/2019 [facility] Basophils 0.5 0.0 - 1.0 04/17/2019 [facility] Lymphocytes 20.5 20.0 - 40.0 04/17/2019 [facility] Monocytes 9.6 2.0 - 12.0 04/17/2019 [facility] HEMATOLOGY Segs 67.0 45.0 - 75.0 04/17/2019 [facility] ELECTROLYTES AGAP 14.1 10.0 - 20.0 04/16/2019 [facility] ELECTROLYTES eGFR 29 04/16/2019 Result Comment: The eGFR is calculated using the CKD-EPI formula. In most young, healthy individuals the eGFR will be >90 mL/min/1.73m2. The eGFR declines with age. An eGFR of 60-89 may be normal in some populations, particularly the elderly, for whom the CKD-EPI formula has not been extensively validated. Use of the eGFR is not recommended in the following populations:

Individuals with unstable creatinine concentrations, including patients and those with serious co-morbid conditions.

Patients with extremes in muscle mass or diet.

The data above are obtained from the National Kidney Disease Education Program (NKDEP) which additionally recommends that when the eGFR is used in patients with extremes of body mass index for purposes of drug dosing, the eGFR should be multiplied by the estimated BMI. [facility] ELECTROLYTES Calcium Lvl 8.0 8.5 - 10.5 04/16/2019 [facility] ELECTROLYTES BUN 32 7 - 22 04/16/2019 [facility] ELECTROLYTES Sodium Lvl 141 135 - 145 04/16/2019 [facility] ELECTROLYTES Creatinine Lvl 1.56 0.50 - 1.40 04/16/2019 [facility] ELECTROLYTES Potassium Lvl 4.1 3.5 - 5.1 04/16/2019 [facility] ELECTROLYTES Chloride Lvl 106 95 - 109 04/16/2019 [facility] ELECTROLYTES CO2 25 24 - 32 04/16/2019 [facility] ELECTROLYTES Glucose Lvl 112 70 - 99 04/16/2019 [facility] MCHC 33.2 32.0 - 36.0 04/16/2019 [facility] WBC 10.0 3.7 - 10.4 04/16/2019 [facility] RBC 2.73 4.20 - 5.40 04/16/2019 [facility] MCV 95.1 80.0 - 98.0 04/16/2019 [facility] Hct 26.0 36.0 - 48.0 04/16/2019 [facility] MCH 31.6 27.0 - 31.0 04/16/2019 [facility] RDW 13.2 11.5 - 14.5 04/16/2019 [facility] Platelet 237 133 - 450 04/16/2019 [facility] MPV 7.5 7.4 - 10.4 04/16/2019 [facility] Hgb 8.6 12.0 - 16.0 04/16/2019 [facility] Monocytes # 0.9 0.0 - 0.8 04/16/2019 [facility] Lymphocytes # 1.3 1.0 - 5.5 04/16/2019 [facility] Neutrophils # 7.7 1.5 - 8.1 04/16/2019 [facility] HEMATOLOGY Basophils 0.2 0.0 - 1.0 04/16/2019 [facility] Eosinophils # 0.2 0.0 - 0.5 04/16/2019 [facility] Eosinophils 2.2 0.0 - 4.0 04/16/2019 [facility] Monocytes 8.8 2.0 - 12.0 04/16/2019 [facility] Lymphocytes 12.5 20.0 - 40.0 04/16/2019 [facility] Segs 76.3 45.0 - 75.0 04/16/2019 [facility] BACTERIAL - SEROLOGY Strep pneumoniae Ag Negative (04/14/19 9:20 PM) Negative 04/15/2019 [facility] BACTERIAL - SEROLOGY Source Strep Urine *NA* (04/14/19 9:20 PM) 04/15/2019 [facility] MOLECULAR DIAGNOSTIC Source Respiratory Panel PCR Nasophrngl Swb *NA* (04/14/19 5:43 PM) 04/14/2019 [facility] MOLECULAR DIAGNOSTIC RSV PCR Negative (04/14/19 5:43 PM) Negative 04/14/2019 [facility] MOLECULAR DIAGNOSTIC Influenza B PCR Negative (04/14/19 5:43 PM) Negative 04/14/2019 [facility] Influenza A PCR Negative (04/14/19 5:43 PM) Negative 04/14/2019 [facility] CHEM PANEL Lactic Acid Lvl 1.1 0.5 - 2.2 04/14/2019 [facility] CHEM PANEL Procalcitonin Lvl 0.09 0.00 - 0.10 04/14/2019 [facility] CHEM PANEL eGFR 37 04/14/2019 Result Comment: The eGFR is calculated using the CKD-EPI formula. In most young, healthy individuals the eGFR will be >90 mL/min/1.73m2. The eGFR declines with age. An eGFR of 60-89 may be normal in some populations, particularly the elderly, for whom the CKD-EPI formula has not been extensively validated. Use of the eGFR is not recommended in the following populations:

Individuals with unstable creatinine concentrations, including patients and those with serious co-morbid conditions.

Patients with extremes in muscle mass or diet.

The data above are obtained from the National Kidney Disease Education Program (NKDEP) which additionally recommends that when the eGFR is used in patients with extremes of body mass index for purposes of drug dosing, the eGFR should be multiplied by the estimated BMI. [facility] CHEM PANEL BUN 27 7 - 22 04/14/2019 [facility] CHEM PANEL Alk Phos 91 39 - 136 04/14/2019 [facility] CHEM PANEL AST 35 0 - 37 04/14/2019 [facility] CHEM PANEL Bili Total 0.3 0.2 - 1.3 04/14/2019 [facility] CHEM PANEL ALT 39 0 - 65 04/14/2019 [facility] CHEM PANEL Chloride Lvl 100 95 - 109 04/14/2019 [facility] CHEM PANEL Potassium Lvl 4.9 3.5 - 5.1 04/14/2019 [facility] CHEM PANEL CO2 28 24 - 32 04/14/2019 [facility] CHEM PANEL Calcium Lvl 8.6 8.5 - 10.5 04/14/2019 [facility] CHEM PANEL Albumin Lvl 3.0 3.5 - 5.0 04/14/2019 [facility] CHEM PANEL Total Protein 7.4 6.4 - 8.4 04/14/2019 [facility] CHEM PANEL Glucose Lvl 118 70 - 99 04/14/2019 [facility] CHEM PANEL Sodium Lvl 137 135 - 145 04/14/2019 [facility] CHEM PANEL Creatinine Lvl 1.28 0.50 - 1.40 04/14/2019 [facility] CHEM PANEL Globulin 4.4 2.7 - 4.2 04/14/2019 [facility] CHEM PANEL A/G Ratio 0.7 0.7 - 1.6 04/14/2019 [facility] CHEM PANEL AGAP 13.9 10.0 - 20.0 04/14/2019 [facility] CHEM PANEL B/C Ratio 21 6 - 25 04/14/2019 [facility] HEMATOLOGY RBC 3.28 4.20 - 5.40 04/14/2019 [facility] HEMATOLOGY Hgb 10.3 12.0 - 16.0 04/14/2019 [facility] HEMATOLOGY Hct 30.9 36.0 - 48.0 04/14/2019 [facility] HEMATOLOGY MCV 94.2 80.0 - 98.0 04/14/2019 [facility] HEMATOLOGY MCH 31.5 27.0 - 31.0 04/14/2019 [facility] HEMATOLOGY Platelet 275 133 - 450 04/14/2019 [facility] RDW 13.3 11.5 - 14.5 04/14/2019 [facility] MPV 7.0 7.4 - 10.4 04/14/2019 [facility] MCHC 33.4 32.0 - 36.0 04/14/2019 [facility] WBC 12.8 3.7 - 10.4 04/14/2019 [facility] Segs 82.4 45.0 - 75.0 04/14/2019 [facility] Monocytes 8.1 2.0 - 12.0 04/14/2019 [facility] Eosinophils 0.1 0.0 - 4.0 04/14/2019 [facility] Basophils 0.4 0.0 - 1.0 04/14/2019 [facility] Lymphocytes # 1.2 1.0 - 5.5 04/14/2019 [facility] Neutrophils # 10.5 1.5 - 8.1 04/14/2019 [facility] Monocytes # 1.0 0.0 - 0.8 04/14/2019 [facility] Lymphocytes 9.0 20.0 - 40.0 04/14/2019 [facility] CARDIAC ENZYMES Total CK 144 12 - 191 09/17/2018 [facility] CARDIAC ENZYMES Troponin-I <0.02 0.00 - 0.40 09/17/2018 [facility] CEFAZOLIN:SUSC:PT:ISOLATE:ORDQN:ROZINA Culture: Urine 50,000 - 100,000 CFU/mL Klebsiella pneumoniae ssp pneumoniae 09/17/2018 [facility] CEFAZOLIN:SUSC:PT:ISOLATE:ORDQN:ROZINA Klebsiella pneumoniae ssp pneumoniae Klebsiella pneumoniae ssp pneumoniae 09/17/2018 [facility] CHEM PANEL Phosphorus 3.6 2.5 - 4.5 09/17/2018 [facility] CHEM PANEL Magnesium Lvl 1.4 1.8 - 2.4 09/17/2018 [facility] CHEM PANEL Lactic Acid Lvl 0.9 0.5 - 2.2 09/17/2018 [facility] CHEM PANEL eGFR 38 09/17/2018 Result Comment: The eGFR is calculated using the CKD-EPI formula. In most young, healthy individuals the eGFR will be >90 mL/min/1.73m2. The eGFR declines with age. An eGFR of 60-89 may be normal in some populations, particularly the elderly, for whom the CKD-EPI formula has not been extensively validated. Use of the eGFR is not recommended in the following populations:

Individuals with unstable creatinine concentrations, including patients and those with serious co-morbid conditions.

Patients with extremes in muscle mass or diet.

The data above are obtained from the National Kidney Disease Education Program (NKDEP) which additionally recommends that when the eGFR is used in patients with extremes of body mass index for purposes of drug dosing, the eGFR should be multiplied by the estimated BMI. [facility] CHEM PANEL Bili Total 0.6 0.2 - 1.3 09/17/2018 [facility] CHEM PANEL Calcium Lvl 9.0 8.5 - 10.5 09/17/2018 [facility] CHEM PANEL Alk Phos 108 39 - 136 09/17/2018 [facility] CHEM PANEL ALT 21 0 - 65 09/17/2018 [facility] CHEM PANEL AST 35 0 - 37 09/17/2018 [facility] CHEM PANEL Albumin Lvl 2.9 3.5 - 5.0 09/17/2018 [facility] CHEM PANEL Total Protein 7.6 6.4 - 8.4 09/17/2018 [facility] CHEM PANEL CO2 26 24 - 32 09/17/2018 [facility] CHEM PANEL Chloride Lvl 95 95 - 109 09/17/2018 [facility] CHEM PANEL Sodium Lvl 132 135 - 145 09/17/2018 [facility] CHEM PANEL Creatinine Lvl 1.27 0.50 - 1.40 09/17/2018 [facility] CHEM PANEL BUN 19 7 - 22 09/17/2018 [facility] CHEM PANEL Potassium Lvl 4.7 3.5 - 5.1 09/17/2018 Result Comment: specimen hemolyzed. [facility] CHEM PANEL Glucose Lvl 116 70 - 99 09/17/2018 [facility] CHEM PANEL A/G Ratio 0.6 0.7 - 1.6 09/17/2018 [facility] CHEM PANEL B/C Ratio 15 6 - 25 09/17/2018 [facility] CHEM PANEL Globulin 4.7 2.7 - 4.2 09/17/2018 [facility] CHEM PANEL AGAP 15.7 10.0 - 20.0 09/17/2018 [facility] HEMATOLOGY Basophils # 0.1 0.0 - 0.2 09/17/2018 [facility] HEMATOLOGY Eosinophils # 0.2 0.0 - 0.5 09/17/2018 [facility] HEMATOLOGY Eosinophils 1.7 0.0 - 4.0 09/17/2018 [facility] HEMATOLOGY Monocytes # 0.8 0.0 - 0.8 09/17/2018 [facility] HEMATOLOGY Neutrophils # 7.3 1.5 - 8.1 09/17/2018 [facility] HEMATOLOGY Basophils 0.9 0.0 - 1.0 09/17/2018 [facility] HEMATOLOGY Lymphocytes # 1.3 1.0 - 5.5 09/17/2018 [facility] HEMATOLOGY Monocytes 7.9 2.0 - 12.0 09/17/2018 [facility] HEMATOLOGY Segs 75.6 45.0 - 75.0 09/17/2018 [facility] HEMATOLOGY Lymphocytes 13.9 20.0 - 40.0 09/17/2018 [facility] PTT 32.5 22.9 - 35.8 09/17/2018 [facility] RDW 13.8 11.5 - 14.5 09/17/2018 [facility] MPV 7.7 7.4 - 10.4 09/17/2018 [facility] Platelet 420 133 - 450 09/17/2018 [facility] Hgb 11.0 12.0 - 16.0 09/17/2018 [facility] MCV 90.6 80.0 - 98.0 09/17/2018 [facility] Hct 32.2 36.0 - 48.0 09/17/2018 [facility] MCHC 34.0 32.0 - 36.0 09/17/2018 [facility] MCH 30.8 27.0 - 31.0 09/17/2018 [facility] WBC 9.7 3.7 - 10.4 09/17/2018 [facility] RBC 3.56 4.20 - 5.40 09/17/2018 [facility] HEMATOLOGY PT 13.2 12.0 - 14.7 09/17/2018 [facility] HEMATOLOGY INR 1.02 0.85 - 1.17 09/17/2018 [facility] URINE AND STOOL UA Bacteria Many /HPF None Seen /HPF 09/17/2018 [facility] URINE AND STOOL UA RBC None Seen (09/17/18 4:13 PM) 0 - 2 09/17/2018 [facility] URINE AND STOOL UA WBC 11-20 /HPF None Seen /HPF 09/17/2018 [facility] URINE AND STOOL UA Blood Negative (09/17/18 4:13 PM) Negative 09/17/2018 [facility] URINE AND STOOL UA Bili Negative *NA* (09/17/18 4:13 PM) Negative 09/17/2018 [facility] URINE AND STOOL UA Ketones Negative *NA* (09/17/18 4:13 PM) Negative 09/17/2018 [facility] URINE AND STOOL UA Glucose Negative (09/17/18 4:13 PM) Negative 09/17/2018 [facility] URINE AND STOOL UA Sq Epi Occasional /LPF Few /LPF 09/17/2018 [facility] URINE AND STOOL UA Leuk Est Small *ABN* (09/17/18 4:13 PM) Negative 09/17/2018 [facility] URINE AND STOOL UA Nitrite Negative (09/17/18 4:13 PM) Negative 09/17/2018 [facility] URINE AND STOOL UA Urobilinogen 0.2 0.1 - 1.0 09/17/2018 [facility] URINE AND STOOL UA Protein Negative (09/17/18 4:13 PM) Negative 09/17/2018 [facility] URINE AND STOOL UA pH 6.0 5.0 - 8.0 09/17/2018 [facility] URINE AND STOOL UA Turbidity Clear (09/17/18 4:13 PM) Clear 09/17/2018 [facility] URINE AND STOOL UA Spec Grav 1.020 <=1.030 09/17/2018 [facility] URINE AND STOOL UA Color Yellow *NA* (09/17/18 4:13 PM) Yellow 09/17/2018 [facility] CHEM PANEL BUN 16 7 - 22 08/21/2018 [facility] CHEM PANEL Glucose Lvl 86 70 - 99 08/21/2018 [facility] CHEM PANEL Creatinine Lvl 0.84 0.50 - 1.40 08/21/2018 [facility] CHEM PANEL A/G Ratio 0.6 0.7 - 1.6 08/21/2018 [facility] CHEM PANEL Globulin 3.4 2.7 - 4.2 08/21/2018 [facility] CHEM PANEL Calcium Lvl 7.8 8.5 - 10.5 08/21/2018 [facility] CHEM PANEL Bili Total 0.5 0.2 - 1.3 08/21/2018 [facility] CHEM PANEL B/C Ratio 19 6 - 25 08/21/2018 [facility] CHEM PANEL AGAP 15.2 10.0 - 20.0 08/21/2018 [facility] CHEM PANEL Alk Phos 326 39 - 136 08/21/2018 [facility] CHEM PANEL eGFR 63 08/21/2018 Result Comment: The eGFR is calculated using the CKD-EPI formula. In most young, healthy individuals the eGFR will be >90 mL/min/1.73m2. The eGFR declines with age. An eGFR of 60-89 may be normal in some populations, particularly the elderly, for whom the CKD-EPI formula has not been extensively validated. Use of the eGFR is not recommended in the following populations:

Individuals with unstable creatinine concentrations, including patients and those with serious co-morbid conditions.

Patients with extremes in muscle mass or diet.

The data above are obtained from the National Kidney Disease Education Program (NKDEP) which additionally recommends that when the eGFR is used in patients with extremes of body mass index for purposes of drug dosing, the eGFR should be multiplied by the estimated BMI. [facility] CHEM PANEL CO2 21 24 - 32 08/21/2018 [facility] CHEM PANEL Chloride Lvl 108 95 - 109 08/21/2018 [facility] CHEM PANEL Potassium Lvl 4.2 3.5 - 5.1 08/21/2018 [facility] CHEM PANEL Sodium Lvl 140 135 - 145 08/21/2018 [facility] CHEM PANEL Total Protein 5.4 6.4 - 8.4 08/21/2018 [facility] CHEM PANEL AST 18 0 - 37 08/21/2018 [facility] CHEM PANEL ALT 67 0 - 65 08/21/2018 [facility] CHEM PANEL Albumin Lvl 2.0 3.5 - 5.0 08/21/2018 [facility] CHEM PANEL eGFR 73 08/20/2018 Result Comment: The eGFR is calculated using the CKD-EPI formula. In most young, healthy individuals the eGFR will be >90 mL/min/1.73m2. The eGFR declines with age. An eGFR of 60-89 may be normal in some populations, particularly the elderly, for whom the CKD-EPI formula has not been extensively validated. Use of the eGFR is not recommended in the following populations:

Individuals with unstable creatinine concentrations, including patients and those with serious co-morbid conditions.

Patients with extremes in muscle mass or diet.

The data above are obtained from the National Kidney Disease Education Program (NKDEP) which additionally recommends that when the eGFR is used in patients with extremes of body mass index for purposes of drug dosing, the eGFR should be multiplied by the estimated BMI. [facility] CHEM PANEL CO2 21 24 - 32 08/20/2018 [facility] CHEM PANEL Calcium Lvl 8.1 8.5 - 10.5 08/20/2018 [facility] CHEM PANEL AGAP 14.3 10.0 - 20.0 08/20/2018 [facility] CHEM PANEL Chloride Lvl 106 95 - 109 08/20/2018 [facility] CHEM PANEL Potassium Lvl 4.3 3.5 - 5.1 08/20/2018 [facility] CHEM PANEL Glucose Lvl 87 70 - 99 08/20/2018 [facility] CHEM PANEL BUN 14 7 - 22 08/20/2018 [facility] CHEM PANEL Creatinine Lvl 0.74 0.50 - 1.40 08/20/2018 [facility] CHEM PANEL Sodium Lvl 137 135 - 145 08/20/2018 [facility] HEMATOLOGY Eosinophils # 0.6 0.0 - 0.5 08/20/2018 [facility] HEMATOLOGY Basophils # 0.1 0.0 - 0.2 08/20/2018 [facility] HEMATOLOGY Eosinophils 7.8 0.0 - 4.0 08/20/2018 [facility] HEMATOLOGY Monocytes 10.3 2.0 - 12.0 08/20/2018 [facility] HEMATOLOGY Lymphocytes 17.5 20.0 - 40.0 08/20/2018 [facility] HEMATOLOGY Segs 63.6 45.0 - 75.0 08/20/2018 [facility] HEMATOLOGY Basophils 0.8 0.0 - 1.0 08/20/2018 [facility] HEMATOLOGY Monocytes # 0.8 0.0 - 0.8 08/20/2018 [facility] HEMATOLOGY Lymphocytes # 1.4 1.0 - 5.5 08/20/2018 [facility] HEMATOLOGY Neutrophils # 5.2 1.5 - 8.1 08/20/2018 [facility] HEMATOLOGY MPV 7.8 7.4 - 10.4 08/20/2018 [facility] HEMATOLOGY RBC 2.88 4.20 - 5.40 08/20/2018 [facility] HEMATOLOGY Hgb 8.9 12.0 - 16.0 08/20/2018 [facility] HEMATOLOGY MCH 31.0 27.0 - 31.0 08/20/2018 [facility] HEMATOLOGY Hct 26.4 36.0 - 48.0 08/20/2018 [facility] HEMATOLOGY MCV 91.6 80.0 - 98.0 08/20/2018 [facility] HEMATOLOGY WBC 8.2 3.7 - 10.4 08/20/2018 [facility] HEMATOLOGY MCHC 33.8 32.0 - 36.0 08/20/2018 [facility] HEMATOLOGY RDW 14.4 11.5 - 14.5 08/20/2018 [facility] HEMATOLOGY Platelet 235 133 - 450 08/20/2018 [facility] TOXICOLOGY Vanco Tr 8.3 08/19/2018 [facility] TOXICOLOGY Vanco Tr TND 0115 08/19/2018 [facility] CHEM PANEL eGFR 58 08/18/2018 Result Comment: The eGFR is calculated using the CKD-EPI formula. In most young, healthy individuals the eGFR will be >90 mL/min/1.73m2. The eGFR declines with age. An eGFR of 60-89 may be normal in some populations, particularly the elderly, for whom the CKD-EPI formula has not been extensively validated. Use of the eGFR is not recommended in the following populations:

Individuals with unstable creatinine concentrations, including patients and those with serious co-morbid conditions.

Patients with extremes in muscle mass or diet.

The data above are obtained from the National Kidney Disease Education Program (NKDEP) which additionally recommends that when the eGFR is used in patients with extremes of body mass index for purposes of drug dosing, the eGFR should be multiplied by the estimated BMI. [facility] CHEM PANEL A/G Ratio 0.6 0.7 - 1.6 08/18/2018 [facility] CHEM PANEL B/C Ratio 17 6 - 25 08/18/2018 [facility] CHEM PANEL AGAP 15.4 10.0 - 20.0 08/18/2018 [facility] CHEM PANEL Globulin 3.4 2.7 - 4.2 08/18/2018 [facility] CHEM PANEL Bili Total 0.6 0.2 - 1.3 08/18/2018 [facility] CHEM PANEL AST 70 0 - 37 08/18/2018 [facility] CHEM PANEL Alk Phos 447 39 - 136 08/18/2018 [facility] CHEM PANEL ALT 146 0 - 65 08/18/2018 [facility] CHEM PANEL Creatinine Lvl 0.90 0.50 - 1.40 08/18/2018 [facility] CHEM PANEL BUN 15 7 - 22 08/18/2018 [facility] CHEM PANEL Glucose Lvl 94 70 - 99 08/18/2018 [facility] CHEM PANEL Albumin Lvl 2.2 3.5 - 5.0 08/18/2018 [facility] CHEM PANEL Total Protein 5.6 6.4 - 8.4 08/18/2018 [facility] CHEM PANEL Calcium Lvl 8.2 8.5 - 10.5 08/18/2018 [facility] CHEM PANEL CO2 20 24 - 32 08/18/2018 [facility] CHEM PANEL Chloride Lvl 107 95 - 109 08/18/2018 [facility] CHEM PANEL Potassium Lvl 4.4 3.5 - 5.1 08/18/2018 [facility] CHEM PANEL Sodium Lvl 138 135 - 145 08/18/2018 [facility] HEMATOLOGY Basophils # 0.1 0.0 - 0.2 08/18/2018 [facility] HEMATOLOGY Lymphocytes # 1.0 1.0 - 5.5 08/18/2018 [facility] HEMATOLOGY Lymphocytes 13.9 20.0 - 40.0 08/18/2018 [facility] HEMATOLOGY Eosinophils 4.9 0.0 - 4.0 08/18/2018 [facility] HEMATOLOGY Basophils 0.8 0.0 - 1.0 08/18/2018 [facility] HEMATOLOGY Monocytes # 0.6 0.0 - 0.8 08/18/2018 [facility] HEMATOLOGY Eosinophils # 0.4 0.0 - 0.5 08/18/2018 [facility] HEMATOLOGY Neutrophils # 5.4 1.5 - 8.1 08/18/2018 [facility] HEMATOLOGY Segs 72.3 45.0 - 75.0 08/18/2018 [facility] HEMATOLOGY Monocytes 8.1 2.0 - 12.0 08/18/2018 [facility] HEMATOLOGY MPV 7.9 7.4 - 10.4 08/18/2018 [facility] HEMATOLOGY Platelet 159 133 - 450 08/18/2018 [facility] HEMATOLOGY MCHC 33.6 32.0 - 36.0 08/18/2018 [facility] HEMATOLOGY RDW 14.4 11.5 - 14.5 08/18/2018 [facility] HEMATOLOGY MCV 91.0 80.0 - 98.0 08/18/2018 [facility] HEMATOLOGY MCH 30.6 27.0 - 31.0 08/18/2018 [facility] HEMATOLOGY Hct 27.3 36.0 - 48.0 08/18/2018 [facility] HEMATOLOGY Hgb 9.1 12.0 - 16.0 08/18/2018 [facility] HEMATOLOGY RBC 2.99 4.20 - 5.40 08/18/2018 [facility] HEMATOLOGY WBC 7.5 3.7 - 10.4 08/18/2018 [facility] IMMUNOLOGY Hep B Core IgM Negative *NA* (08/18/18 7:00 AM) Negative 08/18/2018 [facility] IMMUNOLOGY Hep A IgM Negative *NA* (08/18/18 7:00 AM) Negative 08/18/2018 [facility] IMMUNOLOGY Hep Bs Ag Negative *NA* (08/18/18 7:00 AM) Negative 08/18/2018 [facility] IMMUNOLOGY Hep C Ab Negative *NA* (08/18/18 7:00 AM) 08/18/2018 [facility] IMMUNOLOGY Hep C Ab Negative *NA* (08/18/18 7:00 AM) 08/18/2018 [facility] IMMUNOLOGY Hep Bs Ag Negative *NA* (08/18/18 7:00 AM) Negative 08/18/2018 [facility] IMMUNOLOGY Hep B Core IgM Negative *NA* (08/18/18 7:00 AM) Negative 08/18/2018 [facility] IMMUNOLOGY Hep A IgM Negative *NA* (08/18/18 7:00 AM) Negative 08/18/2018 [facility] CHEM PANEL Bili Total 0.8 0.2 - 1.3 08/17/2018 [facility] CHEM PANEL AST 106 0 - 37 08/17/2018 [facility] CHEM PANEL Bili Direct 0.3 0.0 - 0.3 08/17/2018 [facility] CHEM PANEL Alk Phos 423 39 - 136 08/17/2018 [facility] CHEM PANEL ALT 179 0 - 65 08/17/2018 [facility] CHEM PANEL Bili Indirect 0.5 0.0 - 1.0 08/17/2018 [facility] CHEM PANEL A/G Ratio 0.7 0.7 - 1.6 08/17/2018 [facility] CHEM PANEL Globulin 3.5 2.7 - 4.2 08/17/2018 [facility] CHEM PANEL Albumin Lvl 2.5 3.5 - 5.0 08/17/2018 [facility] CHEM PANEL Total Protein 6.0 6.4 - 8.4 08/17/2018 [facility] HEMATOLOGY INR 1.04 0.85 - 1.17 08/17/2018 [facility] HEMATOLOGY PT 13.6 12.0 - 14.7 08/17/2018 [facility] HEMATOLOGY PTT 38.9 22.9 - 35.8 08/17/2018 [facility] HEMATOLOGY INR 1.01 0.85 - 1.17 08/17/2018 [facility] HEMATOLOGY PT 13.3 12.0 - 14.7 08/17/2018 [facility] HEMATOLOGY PTT 39.2 22.9 - 35.8 08/17/2018 [facility] HEMATOLOGY Fibrinogen Lvl 401 230 - 510 08/17/2018 [facility] HEMATOLOGY D-Dimer 2.07 08/17/2018 [facility] URINE AND STOOL UA Sq Epi Occasional /LPF Few /LPF 08/17/2018 [facility] URINE AND STOOL UA Nitrite Negative (08/17/18 12:30 AM) Negative 08/17/2018 [facility] URINE AND STOOL UA Leuk Est Moderate *ABN* (08/17/18 12:30 AM) Negative 08/17/2018 [facility] URINE AND STOOL UA RBC 1 0 - 2 08/17/2018 [facility] URINE AND STOOL UA WBC 26 0 - 5 08/17/2018 [facility] URINE AND STOOL UA Bacteria Occasional /HPF None Seen /HPF 08/17/2018 [facility] URINE AND STOOL UA Urobilinogen <=1.0 mg/dL 0.1 - 1.0 08/17/2018 [facility] URINE AND STOOL UA Blood Negative (08/17/18 12:30 AM) Negative 08/17/2018 [facility] URINE AND STOOL UA Color Yellow *NA* (08/17/18 12:30 AM) Yellow 08/17/2018 [facility] URINE AND STOOL UA Spec Grav 1.008 <=1.030 08/17/2018 [facility] URINE AND STOOL UA Turbidity Slight *ABN* (08/17/18 12:30 AM) Clear 08/17/2018 [facility] URINE AND STOOL UA pH 6.0 5.0 - 8.0 08/17/2018 [facility] URINE AND STOOL UA Protein Negative (08/17/18 12:30 AM) Negative 08/17/2018 [facility] URINE AND STOOL UA Bili Negative *NA* (08/17/18 12:30 AM) Negative 08/17/2018 [facility] URINE AND STOOL UA Ketones Negative *NA* (08/17/18 12:30 AM) Negative 08/17/2018 [facility] URINE AND STOOL UA Glucose Negative *NA* (08/17/18 12:30 AM) Negative 08/17/2018 [facility] Culture: Urine <10,000 CFU/mL Skin Megan 08/17/2018 [facility] CHEM PANEL Lactic Acid Lvl 0.7 0.5 - 2.2 08/17/2018 [facility] VIRAL - SEROLOGY Influ B Negative (11/23/18 7:21 PM) Negative 08/17/2018 [facility] VIRAL - SEROLOGY Influ A Negative (08/16/18 7:21 PM) Negative 08/17/2018 [facility] CARDIAC ENZYMES Total CK 94 12 - 191 08/17/2018 [facility] CARDIAC ENZYMES Troponin-I <0.02 0.00 - 0.40 08/17/2018 [facility] CHEM PANEL Lipase Lvl 152 73 - 393 08/17/2018 [facility] CHEM PANEL Lactic Acid Lvl 1.0 0.5 - 2.2 08/17/2018 [facility] CHEM PANEL B/C Ratio 17 6 - 25 08/17/2018 [facility] CHEM PANEL Procalcitonin Lvl 1.01 0.00 - 0.10 08/17/2018 [facility] HEMATOLOGY Neutrophils # 4.4 1.5 - 8.1 08/17/2018 [facility] HEMATOLOGY Monocytes # 0.4 0.0 - 0.8 08/17/2018 [facility] HEMATOLOGY Eosinophils # 0.2 0.0 - 0.5 08/17/2018 [facility] HEMATOLOGY Lymphocytes # 0.7 1.0 - 5.5 08/17/2018 [facility] HEMATOLOGY Eosinophils 4.3 0.0 - 4.0 08/17/2018 [facility] HEMATOLOGY Basophils 0.4 0.0 - 1.0 08/17/2018 [facility] HEMATOLOGY Segs 75.4 45.0 - 75.0 08/17/2018 [facility] Lymphocytes 12.3 20.0 - 40.0 08/17/2018 [facility] Monocytes 7.6 2.0 - 12.0 08/17/2018 [facility] HEMATOLOGY PT 13.3 12.0 - 14.7 08/17/2018 [facility] HEMATOLOGY INR 1.01 0.85 - 1.17 08/17/2018 [facility] HEMATOLOGY PTT 81.2 22.9 - 35.8 08/17/2018 [facility] HEMATOLOGY WBC 5.8 3.7 - 10.4 08/17/2018 [facility] HEMATOLOGY Platelet 131 133 - 450 08/17/2018 [facility] MPV 8.3 7.4 - 10.4 08/17/2018 [facility] MCHC 33.3 32.0 - 36.0 08/17/2018 [facility] HEMATOLOGY RDW 13.9 11.5 - 14.5 08/17/2018 [facility] HEMATOLOGY Hgb 10.1 12.0 - 16.0 08/17/2018 [facility] HEMATOLOGY Hct 30.3 36.0 - 48.0 08/17/2018 [facility] HEMATOLOGY MCV 90.8 80.0 - 98.0 08/17/2018 [facility] HEMATOLOGY RBC 3.34 4.20 - 5.40 08/17/2018 [facility] MCH 30.2 27.0 - 31.0 08/17/2018 [facility] CHEM PANEL eGFR 43 07/23/2018 Result Comment: The eGFR is calculated using the CKD-EPI formula. In most young, healthy individuals the eGFR will be >90 mL/min/1.73m2. The eGFR declines with age. An eGFR of 60-89 may be normal in some populations, particularly the elderly, for whom the CKD-EPI formula has not been extensively validated. Use of the eGFR is not recommended in the following populations:

Individuals with unstable creatinine concentrations, including patients and those with serious co-morbid conditions.

Patients with extremes in muscle mass or diet.

The data above are obtained from the National Kidney Disease Education Program (NKDEP) which additionally recommends that when the eGFR is used in patients with extremes of body mass index for purposes of drug dosing, the eGFR should be multiplied by the estimated BMI. [facility] CHEM PANEL Calcium Lvl 8.0 8.5 - 10.5 07/23/2018 [facility] CHEM PANEL Chloride Lvl 98 95 - 109 07/23/2018 [facility] CHEM PANEL CO2 28 24 - 32 07/23/2018 [facility] CHEM PANEL AGAP 14.3 10.0 - 20.0 07/23/2018 [facility] CHEM PANEL Sodium Lvl 136 135 - 145 07/23/2018 [facility] CHEM PANEL Potassium Lvl 4.3 3.5 - 5.1 07/23/2018 [facility] CHEM PANEL Glucose Lvl 135 70 - 99 07/23/2018 [facility] CHEM PANEL BUN 18 7 - 22 07/23/2018 [facility] CHEM PANEL Creatinine Lvl 1.15 0.50 - 1.40 07/23/2018 [facility] HEMATOLOGY Segs 65.1 45.0 - 75.0 07/23/2018 [facility] HEMATOLOGY Eosinophils 2.1 0.0 - 4.0 07/23/2018 [facility] HEMATOLOGY Monocytes 9.4 2.0 - 12.0 07/23/2018 [facility] HEMATOLOGY Lymphocytes 22.7 20.0 - 40.0 07/23/2018 [facility] HEMATOLOGY Neutrophils # 4.4 1.5 - 8.1 07/23/2018 [facility] HEMATOLOGY Basophils 0.7 0.0 - 1.0 07/23/2018 [facility] HEMATOLOGY Monocytes # 0.6 0.0 - 0.8 07/23/2018 [facility] HEMATOLOGY Eosinophils # 0.1 0.0 - 0.5 07/23/2018 [facility] HEMATOLOGY Lymphocytes # 1.5 1.0 - 5.5 07/23/2018 [facility] HEMATOLOGY MCHC 33.1 32.0 - 36.0 07/23/2018 [facility] HEMATOLOGY MCH 30.5 27.0 - 31.0 07/23/2018 [facility] HEMATOLOGY RDW 13.4 11.5 - 14.5 07/23/2018 [facility] HEMATOLOGY Platelet 220 133 - 450 07/23/2018 [facility] HEMATOLOGY MPV 7.8 7.4 - 10.4 07/23/2018 [facility] HEMATOLOGY Hgb 10.9 12.0 - 16.0 07/23/2018 [facility] HEMATOLOGY MCV 92.2 80.0 - 98.0 07/23/2018 [facility] HEMATOLOGY Hct 32.9 36.0 - 48.0 07/23/2018 [facility] HEMATOLOGY RBC 3.57 4.20 - 5.40 07/23/2018 [facility] HEMATOLOGY WBC 6.7 3.7 - 10.4 07/23/2018 [facility] CARDIAC ENZYMES Troponin-I <0.02 0.00 - 0.40 07/23/2018 [facility] CHEM PANEL Lactic Acid WB 1.2 0.5 - 2.2 07/22/2018 [facility] HEMATOLOGY Estimated % Lysis Rapid 3.5 0.0 - 7.5 07/22/2018 Result Comment: "Significant Findings called to Darling Marrero at 07/22/2018 19:40 by ci. Read Back OK." [facility] HEMATOLOGY G-value Rapid 8.3 5.0 - 11.6 07/22/2018 [facility] HEMATOLOGY [place] Rapid 0.7 07/22/2018 [facility] HEMATOLOGY R-time Rapid 0.8 0.4 - 0.7 07/22/2018 [facility] HEMATOLOGY K-time Rapid 1.1 0.6 - 2.3 07/22/2018 [facility] HEMATOLOGY Angle Rapid 77 64 - 80 07/22/2018 [facility] HEMATOLOGY Max Amplitude Rapid 63 52 - 71 07/22/2018 [facility] HEMATOLOGY ACT (TEG) Rapid 121 86 - 118 07/22/2018 [facility] CARDIAC ENZYMES Troponin-I <0.02 0.00 - 0.40 07/22/2018 [facility] CARDIAC ENZYMES Total CK 94 12 - 191 07/22/2018 [facility] CHEM PANEL eGFR 43 07/22/2018 Result Comment: The eGFR is calculated using the CKD-EPI formula. In most young, healthy individuals the eGFR will be >90 mL/min/1.73m2. The eGFR declines with age. An eGFR of 60-89 may be normal in some populations, particularly the elderly, for whom the CKD-EPI formula has not been extensively validated. Use of the eGFR is not recommended in the following populations:

Individuals with unstable creatinine concentrations, including patients and those with serious co-morbid conditions.

Patients with extremes in muscle mass or diet.

The data above are obtained from the National Kidney Disease Education Program (NKDEP) which additionally recommends that when the eGFR is used in patients with extremes of body mass index for purposes of drug dosing, the eGFR should be multiplied by the estimated BMI. [facility] CHEM PANEL ALT 19 0 - 65 07/22/2018 [facility] CHEM PANEL AST 23 0 - 37 07/22/2018 [facility] CHEM PANEL Total Protein 6.5 6.4 - 8.4 07/22/2018 [facility] CHEM PANEL Albumin Lvl 3.1 3.5 - 5.0 07/22/2018 [facility] CHEM PANEL Alk Phos 47 39 - 136 07/22/2018 [facility] CHEM PANEL Bili Total 0.4 0.2 - 1.3 07/22/2018 [facility] CHEM PANEL Glucose Lvl 71 70 - 99 07/22/2018 [facility] CHEM PANEL BUN 22 7 - 22 07/22/2018 [facility] CHEM PANEL Creatinine Lvl 1.15 0.50 - 1.40 07/22/2018 [facility] CHEM PANEL Sodium Lvl 135 135 - 145 07/22/2018 [facility] CHEM PANEL Potassium Lvl 3.8 3.5 - 5.1 07/22/2018 [facility] CHEM PANEL Chloride Lvl 97 95 - 109 07/22/2018 [facility] CHEM PANEL CO2 30 24 - 32 07/22/2018 [facility] CHEM PANEL Calcium Lvl 8.5 8.5 - 10.5 07/22/2018 [facility] CHEM PANEL AGAP 11.8 10.0 - 20.0 07/22/2018 [facility] CHEM PANEL B/C Ratio 19 6 - 25 07/22/2018 [facility] CHEM PANEL A/G Ratio 0.9 0.7 - 1.6 07/22/2018 [facility] CHEM PANEL Globulin 3.4 2.7 - 4.2 07/22/2018 [facility] HEMATOLOGY Monocytes # 1.0 0.0 - 0.8 07/22/2018 [facility] HEMATOLOGY Eosinophils # 0.2 0.0 - 0.5 07/22/2018 [facility] HEMATOLOGY Basophils # 0.1 0.0 - 0.2 07/22/2018 [facility] HEMATOLOGY Lymphocytes # 2.2 1.0 - 5.5 07/22/2018 [facility] HEMATOLOGY Basophils 0.6 0.0 - 1.0 07/22/2018 [facility] HEMATOLOGY Eosinophils 2.2 0.0 - 4.0 07/22/2018 [facility] HEMATOLOGY Neutrophils # 6.6 1.5 - 8.1 07/22/2018 [facility] HEMATOLOGY Segs 65.3 45.0 - 75.0 07/22/2018 [facility] HEMATOLOGY Lymphocytes 21.6 20.0 - 40.0 07/22/2018 [facility] HEMATOLOGY Monocytes 10.3 2.0 - 12.0 07/22/2018 [facility] HEMATOLOGY PTT 28.4 22.9 - 35.8 07/22/2018 [facility] HEMATOLOGY PT 13.2 12.0 - 14.7 07/22/2018 [facility] HEMATOLOGY INR 1.00 0.85 - 1.17 07/22/2018 [facility] HEMATOLOGY WBC 10.1 3.7 - 10.4 07/22/2018 [facility] HEMATOLOGY RBC 3.54 4.20 - 5.40 07/22/2018 [facility] HEMATOLOGY Hct 32.8 36.0 - 48.0 07/22/2018 [facility] HEMATOLOGY MCV 92.7 80.0 - 98.0 07/22/2018 [facility] HEMATOLOGY MCH 31.1 27.0 - 31.0 07/22/2018 [facility] HEMATOLOGY Hgb 11.0 12.0 - 16.0 07/22/2018 [facility] HEMATOLOGY RDW 13.3 11.5 - 14.5 07/22/2018 [facility] HEMATOLOGY Platelet 246 133 - 450 07/22/2018 [facility] HEMATOLOGY MCHC 33.6 32.0 - 36.0 07/22/2018 [facility] HEMATOLOGY MPV 8.0 7.4 - 10.4 07/22/2018 [facility] URINE AND STOOL UA Nitrite Negative (07/22/18 1:39 PM) Negative 07/22/2018 [facility] URINE AND STOOL UA Blood Negative (07/22/18 1:39 PM) Negative 07/22/2018 [facility] URINE AND STOOL UA Urobilinogen 0.2 0.1 - 1.0 07/22/2018 [facility] URINE AND STOOL UA Sq Epi None Seen (07/22/18 1:39 PM) Few 07/22/2018 [facility] URINE AND STOOL UA Leuk Est Negative (07/22/18 1:39 PM) Negative 07/22/2018 [facility] URINE AND STOOL UA Protein Negative (07/22/18 1:39 PM) Negative 07/22/2018 [facility] URINE AND STOOL UA pH 6.5 5.0 - 8.0 07/22/2018 [facility] URINE AND STOOL UA Glucose Negative (07/22/18 1:39 PM) Negative 07/22/2018 [facility] URINE AND STOOL UA Turbidity Clear (07/22/18 1:39 PM) Clear 07/22/2018 [facility] URINE AND STOOL UA Color Other *ABN* (07/22/18 1:39 PM) Yellow 07/22/2018 [facility] URINE AND STOOL UA Bili Negative *NA* (07/22/18 1:39 PM) Negative 07/22/2018 [facility] URINE AND STOOL UA Ketones Negative *NA* (07/22/18 1:39 PM) Negative 07/22/2018 [facility] URINE AND STOOL UA Spec Grav <=1.005 *NA* (07/22/18 1:39 PM) <=1.030 07/22/2018 [facility] DRUG SCREEN U Propoxyph Scr Negative *NA* (05/17/18 12:29 AM) Negative 05/17/2018 [facility] DRUG SCREEN U Methadone Scr Negative *NA* (05/17/18 12:29 AM) Negative 05/17/2018 [facility] DRUG SCREEN UDS Note See Note (05/17/18 12:29 AM) 05/17/2018 [facility] DRUG SCREEN U Cannab Scr Negative *NA* (05/17/18 12:29 AM) Negative 05/17/2018 [facility] DRUG SCREEN U Opiate Scr Negative *NA* (05/17/18 12:29 AM) Negative 05/17/2018 [facility] DRUG SCREEN U Phencyclidine Scr Negative *NA* (05/17/18 12:29 AM) Negative 05/17/2018 [facility] DRUG SCREEN U Samantha Scr Negative *NA* (05/17/18 12:29 AM) Negative 05/17/2018 [facility] DRUG SCREEN U Amph Scr Negative *NA* (05/17/18 12:29 AM) Negative 05/17/2018 [facility] DRUG SCREEN U Cocaine Scr Negative *NA* (05/17/18 12:29 AM) Negative 05/17/2018 [facility] DRUG SCREEN U Benzodiaz Scr Negative *NA* (05/17/18 12:29 AM) Negative 05/17/2018 [facility] URINE AND STOOL UA Urobilinogen <=1.0 mg/dL 0.1 - 1.0 05/17/2018 [facility] URINE AND STOOL UA Color Ltyellow 05/17/2018 [facility] URINE AND STOOL UA Sq Epi Occasional /LPF Few /LPF 05/17/2018 [facility] URINE AND STOOL UA WBC <1 0 - 5 05/17/2018 [facility] URINE AND STOOL UA RBC <1 0 - 2 05/17/2018 [facility] URINE AND STOOL UA Turbidity Slight *ABN* (05/17/18 12:29 AM) Clear 05/17/2018 [facility] URINE AND STOOL UA pH 6.0 5.0 - 8.0 05/17/2018 [facility] URINE AND STOOL UA Protein Negative mg/dL Negative mg/dL 05/17/2018 [facility] URINE AND STOOL UA Spec Grav 1.011 <=1.030 05/17/2018 [facility] URINE AND STOOL UA Glucose Negative mg/dL Negative mg/dL 05/17/2018 [facility] URINE AND STOOL UA Ketones Negative mg/dL Negative mg/dL 05/17/2018 [facility] URINE AND STOOL UA Blood Negative (05/17/18 12:29 AM) Negative 05/17/2018 [facility] URINE AND STOOL UA Bili Negative *NA* (05/17/18 12:29 AM) Negative 05/17/2018 [facility] URINE AND STOOL UA Nitrite Negative (05/17/18 12:29 AM) Negative 05/17/2018 [facility] URINE AND STOOL UA Leuk Est Negative (05/17/18 12:29 AM) Negative 05/17/2018 [facility] CHEM PANEL eGFR 34 05/16/2018 Result Comment: The eGFR is calculated using the CKD-EPI formula. In most young, healthy individuals the eGFR will be >90 mL/min/1.73m2. The eGFR declines with age. An eGFR of 60-89 may be normal in some populations, particularly the elderly, for whom the CKD-EPI formula has not been extensively validated. Use of the eGFR is not recommended in the following populations:

Individuals with unstable creatinine concentrations, including patients and those with serious co-morbid conditions.

Patients with extremes in muscle mass or diet.

The data above are obtained from the National Kidney Disease Education Program (NKDEP) which additionally recommends that when the eGFR is used in patients with extremes of body mass index for purposes of drug dosing, the eGFR should be multiplied by the estimated BMI. [facility] CHEM PANEL Alk Phos 50 39 - 136 05/16/2018 [facility] CHEM PANEL Bili Total 0.2 0.2 - 1.3 05/16/2018 [facility] CHEM PANEL AST 21 0 - 37 05/16/2018 [facility] CHEM PANEL Albumin Lvl 3.2 3.5 - 5.0 05/16/2018 [facility] CHEM PANEL ALT 22 0 - 65 05/16/2018 [facility] CHEM PANEL Total Protein 6.6 6.4 - 8.4 05/16/2018 [facility] CHEM PANEL Creatinine Lvl 1.40 0.50 - 1.40 05/16/2018 [facility] CHEM PANEL Sodium Lvl 135 135 - 145 05/16/2018 [facility] CHEM PANEL Potassium Lvl 4.0 3.5 - 5.1 05/16/2018 [facility] CHEM PANEL Chloride Lvl 95 95 - 109 05/16/2018 [facility] CHEM PANEL Calcium Lvl 8.5 8.5 - 10.5 05/16/2018 [facility] CHEM PANEL CO2 33 24 - 32 05/16/2018 [facility] CHEM PANEL Glucose Lvl 144 70 - 99 05/16/2018 [facility] CHEM PANEL BUN 30 7 - 22 05/16/2018 [facility] CHEM PANEL B/C Ratio 21 6 - 25 05/16/2018 [facility] CHEM PANEL Globulin 3.4 2.7 - 4.2 05/16/2018 [facility] CHEM PANEL AGAP 11.0 10.0 - 20.0 05/16/2018 [facility] CHEM PANEL A/G Ratio 0.9 0.7 - 1.6 05/16/2018 [facility] CHEM PANEL Magnesium Lvl 2.1 1.8 - 2.4 05/16/2018 [facility] CHEM PANEL Phosphorus 3.3 2.5 - 4.5 05/16/2018 [facility] HEMATOLOGY PTT 30.1 22.9 - 35.8 05/16/2018 [facility] HEMATOLOGY PT 12.9 12.0 - 14.7 05/16/2018 [facility] HEMATOLOGY INR 0.97 0.85 - 1.17 05/16/2018 [facility] HEMATOLOGY RDW 14.1 11.5 - 14.5 05/16/2018 [facility] HEMATOLOGY RBC 3.60 4.20 - 5.40 05/16/2018 [facility] HEMATOLOGY WBC 6.6 3.7 - 10.4 05/16/2018 [facility] HEMATOLOGY Hct 33.3 36.0 - 48.0 05/16/2018 [facility] HEMATOLOGY Hgb 11.1 12.0 - 16.0 05/16/2018 [facility] HEMATOLOGY Platelet 249 133 - 450 05/16/2018 [facility] HEMATOLOGY MPV 7.5 7.4 - 10.4 05/16/2018 [facility] HEMATOLOGY MCV 92.5 80.0 - 98.0 05/16/2018 [facility] HEMATOLOGY MCHC 33.4 32.0 - 36.0 05/16/2018 [facility] HEMATOLOGY MCH 30.9 27.0 - 31.0 05/16/2018 [facility] HEMATOLOGY Segs 52.4 45.0 - 75.0 05/16/2018 [facility] HEMATOLOGY Neutrophils # 3.5 1.5 - 8.1 05/16/2018 [facility] HEMATOLOGY Lymphocytes # 2.1 1.0 - 5.5 05/16/2018 [facility] HEMATOLOGY Eosinophils 3.8 0.0 - 4.0 05/16/2018 [facility] HEMATOLOGY Monocytes 10.9 2.0 - 12.0 05/16/2018 [facility] HEMATOLOGY Basophils 1.3 0.0 - 1.0 05/16/2018 [facility] HEMATOLOGY Lymphocytes 31.6 20.0 - 40.0 05/16/2018 [facility] HEMATOLOGY Eosinophils # 0.2 0.0 - 0.5 05/16/2018 [facility] HEMATOLOGY Monocytes # 0.7 0.0 - 0.8 05/16/2018 [facility] HEMATOLOGY Basophils # 0.1 0.0 - 0.2 05/16/2018 [facility] URINE AND STOOL UA Leuk Est Negative (05/16/18 3:36 PM) Negative 05/16/2018 [facility] URINE AND STOOL UA Sq Epi Occasional /LPF Few /LPF 05/16/2018 [facility] URINE AND STOOL UA Nitrite Negative (05/16/18 3:36 PM) Negative 05/16/2018 [facility] URINE AND STOOL UA Glucose Negative mg/dL Negative mg/dL 05/16/2018 [facility] URINE AND STOOL UA Color Ltyellow 05/16/2018 [facility] URINE AND STOOL UA Urobilinogen <=1.0 mg/dL 0.1 - 1.0 05/16/2018 [facility] URINE AND STOOL UA Blood Negative (05/16/18 3:36 PM) Negative 05/16/2018 [facility] URINE AND STOOL UA Bili Negative *NA* (05/16/18 3:36 PM) Negative 05/16/2018 [facility] URINE AND STOOL UA Ketones Negative mg/dL Negative mg/dL 05/16/2018 [facility] URINE AND STOOL UA RBC <1 0 - 2 05/16/2018 [facility] URINE AND STOOL UA WBC <1 0 - 5 05/16/2018 [facility] URINE AND STOOL UA Hyal Cast 1 0 - 2 05/16/2018 [facility] URINE AND STOOL UA Spec Grav 1.011 <=1.030 05/16/2018 [facility] URINE AND STOOL UA Turbidity Clear (05/16/18 3:36 PM) Clear 05/16/2018 [facility] URINE AND STOOL UA pH 6.0 5.0 - 8.0 05/16/2018 [facility] URINE AND STOOL UA Protein Negative mg/dL Negative mg/dL 05/16/2018 [facility] ELECTROLYTES AGAP 14.6 10.0 - 20.0 05/29/2016 [facility] ELECTROLYTES CO2 21 24 - 32 05/29/2016 [facility] ELECTROLYTES Chloride Lvl 106 95 - 109 05/29/2016 [facility] ELECTROLYTES Calcium Lvl 7.1 8.5 - 10.5 05/29/2016 [facility] ELECTROLYTES Glucose Lvl 114 70 - 99 05/29/2016 [facility] ELECTROLYTES eGFR 66 05/29/2016 Result Comment: The eGFR is calculated using the CKD-EPI formula. In most young, healthy individuals the eGFR will be >90 mL/min/1.73m2. The eGFR declines with age. An eGFR of 60-89 may be normal in some populations, particularly the elderly, for whom the CKD-EPI formula has not been extensively validated. Use of the eGFR is not recommended in the following populations:

Individuals with unstable creatinine concentrations, including patients and those with serious co-morbid conditions.

Patients with extremes in muscle mass or diet.

The data above are obtained from the National Kidney Disease Education Program (NKDEP) which additionally recommends that when the eGFR is used in patients with extremes of body mass index for purposes of drug dosing, the eGFR should be multiplied by the estimated BMI. [facility] ELECTROLYTES Potassium Lvl 3.6 3.5 - 5.1 05/29/2016 [facility] ELECTROLYTES Creatinine Lvl 0.81 0.50 - 1.40 05/29/2016 [facility] ELECTROLYTES BUN 19 7 - 22 05/29/2016 [facility] ELECTROLYTES Sodium Lvl 138 135 - 145 05/29/2016 [facility] Monocytes # 0.1 0.0 - 0.8 05/29/2016 [facility] Lymphocytes # 0.9 1.0 - 5.5 05/29/2016 [facility] Segs-Bands # 6.4 1.5 - 8.1 05/29/2016 [facility] HEMATOLOGY Basophils 0.1 0.0 - 1.0 05/29/2016 [facility] HEMATOLOGY Monocytes 1.9 2.0 - 12.0 05/29/2016 [facility] HEMATOLOGY Segs 85.9 45.0 - 75.0 05/29/2016 [facility] Lymphocytes 12.1 20.0 - 40.0 05/29/2016 [facility] HEMATOLOGY WBC 7.4 3.7 - 10.4 05/29/2016 [facility] RBC 2.81 4.20 - 5.40 05/29/2016 [facility] RDW 13.0 11.5 - 14.5 05/29/2016 [facility] Platelet 266 133 - 450 05/29/2016 [facility] MPV 7.5 7.4 - 10.4 05/29/2016 [facility] HEMATOLOGY MCHC 33.0 32.0 - 36.0 05/29/2016 [facility] HEMATOLOGY Hgb 8.5 12.0 - 16.0 05/29/2016 [facility] HEMATOLOGY MCV 92.0 80.0 - 98.0 05/29/2016 [facility] MCH 30.4 27.0 - 31.0 05/29/2016 [facility] HEMATOLOGY Hct 25.9 36.0 - 48.0 05/29/2016 [facility] HEMATOLOGY Sed Rate 36 0 - 20 05/28/2016 [facility] IMMUNOLOGY CRP, High Sensitivity 35.6 05/28/2016 [facility] CHEM PANEL eGFR 63 05/28/2016 Result Comment: The eGFR is calculated using the CKD-EPI formula. In most young, healthy individuals the eGFR will be >90 mL/min/1.73m2. The eGFR declines with age. An eGFR of 60-89 may be normal in some populations, particularly the elderly, for whom the CKD-EPI formula has not been extensively validated. Use of the eGFR is not recommended in the following populations:

Individuals with unstable creatinine concentrations, including patients and those with serious co-morbid conditions.

Patients with extremes in muscle mass or diet.

The data above are obtained from the National Kidney Disease Education Program (NKDEP) which additionally recommends that when the eGFR is used in patients with extremes of body mass index for purposes of drug dosing, the eGFR should be multiplied by the estimated BMI. [facility] CHEM PANEL Glucose Lvl 134 70 - 99 05/28/2016 [facility] CHEM PANEL Potassium Lvl 4.2 3.5 - 5.1 05/28/2016 [facility] CHEM PANEL Sodium Lvl 138 135 - 145 05/28/2016 [facility] CHEM PANEL Creatinine Lvl 0.84 0.50 - 1.40 05/28/2016 [facility] CHEM PANEL BUN 16 7 - 22 05/28/2016 [facility] CHEM PANEL Calcium Lvl 8.1 8.5 - 10.5 05/28/2016 [facility] CHEM PANEL AGAP 14.2 10.0 - 20.0 05/28/2016 [facility] CHEM PANEL CO2 24 24 - 32 05/28/2016 [facility] CHEM PANEL Chloride Lvl 104 95 - 109 05/28/2016 [facility] HEMATOLOGY RDW 13.7 11.5 - 14.5 05/28/2016 [facility] HEMATOLOGY Platelet 280 133 - 450 05/28/2016 [facility] MCHC 32.6 32.0 - 36.0 05/28/2016 [facility] HEMATOLOGY MPV 7.8 7.4 - 10.4 05/28/2016 [facility] RBC 3.14 4.20 - 5.40 05/28/2016 [facility] Hgb 9.4 12.0 - 16.0 05/28/2016 [facility] HEMATOLOGY MCV 91.7 80.0 - 98.0 05/28/2016 [facility] MCH 29.9 27.0 - 31.0 05/28/2016 [facility] HEMATOLOGY Hct 28.8 36.0 - 48.0 05/28/2016 [facility] HEMATOLOGY WBC 6.7 3.7 - 10.4 05/28/2016 [facility] Segs-Bands # 5.5 1.5 - 8.1 05/28/2016 [facility] Lymphocytes # 1.1 1.0 - 5.5 05/28/2016 [facility] Monocytes # 0.2 0.0 - 0.8 05/28/2016 [facility] Lymphocytes 15.9 20.0 - 40.0 05/28/2016 [facility] Monocytes 2.5 2.0 - 12.0 05/28/2016 [facility] Segs 81.3 45.0 - 75.0 05/28/2016 [facility] HEMATOLOGY Eosinophils 0.1 0.0 - 4.0 05/28/2016 [facility] HEMATOLOGY Basophils 0.2 0.0 - 1.0 05/28/2016 [facility] URINE AND STOOL UA Mucus Few /LPF None Seen /LPF 05/27/2016 [facility] URINE AND STOOL UA Blood Negative (05/27/16 7:36 AM) Negative 05/27/2016 [facility] URINE AND STOOL UA Ketones Negative mg/dL Negative mg/dL 05/27/2016 [facility] URINE AND STOOL UA Bili Negative *NA* (05/27/16 7:36 AM) Negative 05/27/2016 [facility] URINE AND STOOL UA Nitrite Negative (05/27/16 7:36 AM) Negative 05/27/2016 [facility] URINE AND STOOL UA Leuk Est Moderate *ABN* (05/27/16 7:36 AM) Negative 05/27/2016 [facility] URINE AND STOOL UA Spec Grav 1.013 <=1.030 05/27/2016 [facility] URINE AND STOOL UA pH 5.0 5.0 - 8.0 05/27/2016 [facility] URINE AND STOOL UA Turbidity Clear (05/27/16 7:36 AM) Clear 05/27/2016 [facility] URINE AND STOOL UA Protein Negative mg/dL Negative mg/dL 05/27/2016 [facility] URINE AND STOOL UA Color Ltyellow 05/27/2016 [facility] URINE AND STOOL UA Urobilinogen <=1.0 mg/dL 0.1 - 1.0 05/27/2016 [facility] URINE AND STOOL UA Bacteria Moderate /HPF None Seen /HPF 05/27/2016 [facility] URINE AND STOOL UA Sq Epi Occasional /LPF Few /LPF 05/27/2016 [facility] URINE AND STOOL UA WBC 7 0 - 5 05/27/2016 [facility] URINE AND STOOL UA Glucose Negative mg/dL Negative mg/dL 05/27/2016 [facility] CHEM PANEL Phosphorus 2.4 2.5 - 4.5 05/27/2016 [facility] CHEM PANEL Magnesium Lvl 1.8 1.8 - 2.4 05/27/2016 [facility] CHEM PANEL B/C Ratio 19 6 - 25 05/27/2016 [facility] CHEM PANEL AGAP 12.0 10.0 - 20.0 05/27/2016 [facility] CHEM PANEL A/G Ratio 0.9 0.7 - 1.6 05/27/2016 [facility] CHEM PANEL Globulin 3.5 2.7 - 4.2 05/27/2016 [facility] CHEM PANEL eGFR 59 05/27/2016 Result Comment: The eGFR is calculated using the CKD-EPI formula. In most young, healthy individuals the eGFR will be >90 mL/min/1.73m2. The eGFR declines with age. An eGFR of 60-89 may be normal in some populations, particularly the elderly, for whom the CKD-EPI formula has not been extensively validated. Use of the eGFR is not recommended in the following populations:

Individuals with unstable creatinine concentrations, including patients and those with serious co-morbid conditions.

Patients with extremes in muscle mass or diet.

The data above are obtained from the National Kidney Disease Education Program (NKDEP) which additionally recommends that when the eGFR is used in patients with extremes of body mass index for purposes of drug dosing, the eGFR should be multiplied by the estimated BMI. [facility] CHEM PANEL CO2 25 24 - 32 05/27/2016 [facility] CHEM PANEL Chloride Lvl 108 95 - 109 05/27/2016 [facility] CHEM PANEL Potassium Lvl 4.0 3.5 - 5.1 05/27/2016 [facility] CHEM PANEL AST 18 0 - 37 05/27/2016 [facility] CHEM PANEL Sodium Lvl 141 135 - 145 05/27/2016 [facility] CHEM PANEL Albumin Lvl 3.0 3.5 - 5.0 05/27/2016 [facility] CHEM PANEL Alk Phos 60 39 - 136 05/27/2016 [facility] CHEM PANEL Creatinine Lvl 0.89 0.50 - 1.40 05/27/2016 [facility] CHEM PANEL Bili Total 0.3 0.2 - 1.3 05/27/2016 [facility] CHEM PANEL BUN 17 7 - 22 05/27/2016 [facility] CHEM PANEL Total Protein 6.5 6.4 - 8.4 05/27/2016 [facility] CHEM PANEL Calcium Lvl 8.2 8.5 - 10.5 05/27/2016 [facility] CHEM PANEL ALT 13 0 - 65 05/27/2016 [facility] CHEM PANEL Glucose Lvl 99 70 - 99 05/27/2016 [facility] HEMATOLOGY Monocytes # 0.6 0.0 - 0.8 05/27/2016 [facility] HEMATOLOGY Lymphocytes # 1.6 1.0 - 5.5 05/27/2016 [facility] HEMATOLOGY Eosinophils # 0.1 0.0 - 0.5 05/27/2016 [facility] HEMATOLOGY Segs-Bands # 5.0 1.5 - 8.1 05/27/2016 [facility] HEMATOLOGY Basophils # 0.1 0.0 - 0.2 05/27/2016 [facility] HEMATOLOGY Lymphocytes 21.3 20.0 - 40.0 05/27/2016 [facility] HEMATOLOGY Segs 68.4 45.0 - 75.0 05/27/2016 [facility] HEMATOLOGY Monocytes 8.0 2.0 - 12.0 05/27/2016 [facility] HEMATOLOGY Basophils 0.7 0.0 - 1.0 05/27/2016 [facility] HEMATOLOGY Eosinophils 1.6 0.0 - 4.0 05/27/2016 [facility] HEMATOLOGY WBC 7.4 3.7 - 10.4 05/27/2016 [facility] HEMATOLOGY RBC 3.04 4.20 - 5.40 05/27/2016 [facility] HEMATOLOGY Hgb 9.3 12.0 - 16.0 05/27/2016 [facility] HEMATOLOGY Hct 27.9 36.0 - 48.0 05/27/2016 [facility] HEMATOLOGY MCV 91.6 80.0 - 98.0 05/27/2016 [facility] HEMATOLOGY MCH 30.4 27.0 - 31.0 05/27/2016 [facility] HEMATOLOGY Platelet 266 133 - 450 05/27/2016 [facility] HEMATOLOGY RDW 13.7 11.5 - 14.5 05/27/2016 [facility] HEMATOLOGY MPV 7.6 7.4 - 10.4 05/27/2016 [facility] HEMATOLOGY MCHC 33.2 32.0 - 36.0 05/27/2016 [facility] HEMATOLOGY Eosinophils 2.3 0.0 - 4.0 05/27/2016 [facility] HEMATOLOGY Eosinophils # 0.2 0.0 - 0.5 05/27/2016 [facility] HEMATOLOGY Basophils # 0.1 0.0 - 0.2 05/27/2016 [facility] HEMATOLOGY Eosinophils # 0.2 0.0 - 0.5 05/27/2016 [facility] HEMATOLOGY Basophils # 0.1 0.0 - 0.2 05/27/2016 [facility] CHEM PANEL Lactic Acid Lvl 1.0 0.5 - 2.2 05/26/2016 [facility] HEMATOLOGY PTT 33.0 22.9 - 35.8 05/26/2016 [facility] HEMATOLOGY Sed Rate 64 0 - 20 05/26/2016 [facility] IMMUNOLOGY RF Qnt <10 0 - 20 05/26/2016 [facility] IMMUNOLOGY C-REACTIVE PROTEIN 44.9 <=2.9 mg/L 05/26/2016 [facility] IMMUNOLOGY CARLA Positive *ABN* (05/26/16 4:17 PM) Negative 05/26/2016 [facility] IMMUNOLOGY CARLA Interp Pattern appears Speckled, Chromosome Positive 05/26/2016 [facility] IMMUNOLOGY CARLA Titer 1:40 *ABN* (05/26/16 4:17 PM) Negative 05/26/2016 [facility] CHEMISTRY Bili Total 0.4 0.2 - 1.3 03/31/2012 Normal [facility] CHEMISTRY AST 26 0 - 37 03/31/2012 Normal [facility] CHEMISTRY Total Protein 5.8 6.4 - 8.4 03/31/2012 LOW [facility] CHEMISTRY AGAP 17.4 10.0 - 20.0 03/31/2012 Normal [facility] CHEMISTRY Calcium Lvl 7.6 8.5 - 10.5 03/31/2012 LOW [facility] CHEMISTRY B/C Ratio 17 6 - 25 03/31/2012 Normal [facility] CHEMISTRY ALT 25 0 - 65 03/31/2012 Normal [facility] CHEMISTRY Alk Phos 45 39 - 136 03/31/2012 Normal [facility] CHEMISTRY Albumin Lvl 3.1 3.5 - 5.0 03/31/2012 LOW [facility] CHEMISTRY A/G Ratio 1.1 0.7 - 1.6 03/31/2012 Normal [facility] CHEMISTRY Globulin 2.7 2.0 - 4.0 03/31/2012 Normal [facility] CHEMISTRY Sodium Lvl 127 135 - 145 03/31/2012 LOW [facility] CHEMISTRY Potassium Lvl 3.4 3.5 - 5.1 03/31/2012 LOW [facility] CHEMISTRY Chloride Lvl 93 95 - 109 03/31/2012 LOW [facility] CHEMISTRY Glucose Lvl 64 70 - 99 03/31/2012 LOW <sup>2</sup>Interpretive Data: Adult reference range values reflect the clinical guidelines
of the [place] [employer]. [facility] CHEMISTRY Creatinine Lvl 0.6 0.5 - 1.4 03/31/2012 Normal [facility] CHEMISTRY BUN 10 7 - 22 03/31/2012 Normal [facility] CHEMISTRY CO2 20 24 - 32 03/31/2012 LOW [facility] HEMATOLOGY Basophils # 0.0 0.0 - 0.2 03/31/2012 Normal [facility] HEMATOLOGY Eosinophils # 0.0 0.0 - 0.5 03/31/2012 Normal [facility] HEMATOLOGY Lymphocytes 26.5 20.0 - 40.0 03/31/2012 Normal [facility] HEMATOLOGY Segs 64.8 45.0 - 75.0 03/31/2012 Normal [facility] HEMATOLOGY Eosinophils 0.2 0.0 - 4.0 03/31/2012 Normal [facility] HEMATOLOGY Monocytes 8.4 2.0 - 12.0 03/31/2012 Normal [facility] HEMATOLOGY Segs-Bands # 4.4 1.5 - 8.1 03/31/2012 Normal [facility] HEMATOLOGY Monocytes # 0.6 0.0 - 0.8 03/31/2012 Normal [facility] HEMATOLOGY Lymphocytes # 1.8 1.0 - 5.5 03/31/2012 Normal [facility] HEMATOLOGY Basophils 0.1 0.0 - 1.0 03/31/2012 Normal [facility] HEMATOLOGY RDW 12.5 11.5 - 14.5 03/31/2012 Normal [facility] HEMATOLOGY MPV 7.2 7.4 - 10.4 03/31/2012 LOW [facility] HEMATOLOGY Platelet 285 133 - 450 03/31/2012 Normal [facility] HEMATOLOGY RBC 3.68 4.20 - 5.40 03/31/2012 LOW [facility] HEMATOLOGY WBC 6.7 3.7 - 10.4 03/31/2012 Normal [facility] HEMATOLOGY MCH 32.9 27.0 - 31.0 03/31/2012 HI [facility] HEMATOLOGY MCHC 34.6 32.0 - 36.0 03/31/2012 Normal [facility] HEMATOLOGY Hgb 12.1 12.0 - 16.0 03/31/2012 Normal [facility] HEMATOLOGY MCV 95.0 81.0 - 99.0 03/31/2012 Normal [facility] HEMATOLOGY Hct 34.9 36.0 - 48.0 03/31/2012 LOW [facility] CHEMISTRY Potassium Lvl 3.4 3.5 - 5.1 03/31/2012 LOW [facility] URINALYSIS UA Urobilinogen 0.1 - 1.0 03/30/2012 NA [facility] URINALYSIS UA Color Ltyellow 03/30/2012 NA [facility] URINALYSIS UA RBC 17 0 - 2 03/30/2012 [facility] URINALYSIS UA Bacteria Occasional /HPF *NA* (03/30/2012 17:48:00) None Seen 03/30/2012 [facility] URINALYSIS UA Leuk Est Negative (03/30/2012 17:48:00) Negative 03/30/2012 Normal [facility] URINALYSIS UA Sq Epi Occasional /LPF *NA* (03/30/2012 17:48:00) Few 03/30/2012 NA [facility] URINALYSIS UA Nitrite Negative (03/30/2012 17:48:00) Negative 03/30/2012 Normal [facility] URINALYSIS UA Blood Small *ABN* (03/30/2012 17:48:00) Negative 03/30/2012 ABN [facility] URINALYSIS UA Ketones 80 mg/dL *ABN* (03/30/2012 17:48:00) Negative 03/30/2012 ABN [facility] URINALYSIS UA Bili Negative *NA* (03/30/2012 17:48:00) Negative 03/30/2012 [facility] URINALYSIS UA Protein 30 mg/dL *ABN* (03/30/2012 17:48:00) Negative 03/30/2012 ABN [facility] URINALYSIS UA Glucose Negative mg/dL *NA* (03/30/2012 17:48:00) Negative 03/30/2012 NA [facility] URINALYSIS UA pH 5.0 5.0 - 8.0 03/30/2012 Normal [facility] URINALYSIS UA Turbidity Slight *ABN* (03/30/2012 17:48:00) Clear 03/30/2012 ABN [facility] URINALYSIS UA Spec Grav 1.013 <=1.030 03/30/2012 Normal [facility] CHEMISTRY Lipase Lvl 110 73 - 393 03/30/2012 Normal [facility] CHEMISTRY A/G Ratio 1.1 0.7 - 1.6 03/30/2012 Normal [facility] CHEMISTRY Globulin 3.4 2.0 - 4.0 03/30/2012 Normal [facility] CHEMISTRY AST 27 0 - 37 03/30/2012 Normal [facility] CHEMISTRY B/C Ratio 15 6 - 25 03/30/2012 Normal [facility] CHEMISTRY ALT 27 0 - 65 03/30/2012 Normal [facility] CHEMISTRY Alk Phos 55 39 - 136 03/30/2012 Normal [facility] CHEMISTRY Bili Total 0.5 0.2 - 1.3 03/30/2012 Normal [facility] CHEMISTRY Glucose Lvl 106 70 - 99 03/30/2012 [place] <sup>3</sup>Interpretive Data: Adult reference range values reflect the clinical guidelines
of the [place] [employer]. [facility] CHEMISTRY BUN 12 7 - 22 03/30/2012 Normal [facility] CHEMISTRY Creatinine Lvl 0.8 0.5 - 1.4 03/30/2012 Normal [facility] CHEMISTRY Chloride Lvl 85 95 - 109 03/30/2012 LOW [facility] CHEMISTRY Sodium Lvl 122 135 - 145 03/30/2012 LOW [facility] CHEMISTRY Potassium Lvl 2.9 3.5 - 5.1 03/30/2012 CRIT <sup>1</sup>Result Comment: Critical Result(s) called to [place] at 03/30/2012 18:41:47 CDT by Magdalena. Read back OK. [facility] CHEMISTRY Albumin Lvl 3.6 3.5 - 5.0 03/30/2012 Normal [facility] CHEMISTRY Total Protein 7.0 6.4 - 8.4 03/30/2012 Normal [facility] CHEMISTRY CO2 22 24 - 32 03/30/2012 LOW [facility] CHEMISTRY AGAP 17.9 10.0 - 20.0 03/30/2012 Normal [facility] CHEMISTRY Calcium Lvl 8.4 8.5 - 10.5 03/30/2012 LOW [facility] HEMATOLOGY Basophils # 0.0 0.0 - 0.2 03/30/2012 Normal [facility] HEMATOLOGY Eosinophils # 0.0 0.0 - 0.5 03/30/2012 Normal [facility] HEMATOLOGY Segs 79.0 45.0 - 75.0 03/30/2012 [facility] HEMATOLOGY Monocytes # 0.5 0.0 - 0.8 03/30/2012 Normal [facility] HEMATOLOGY Segs-Bands # 6.5 1.5 - 8.1 03/30/2012 Normal [facility] HEMATOLOGY Lymphocytes # 1.2 1.0 - 5.5 03/30/2012 Normal [facility] HEMATOLOGY Basophils 0.2 0.0 - 1.0 03/30/2012 Normal [facility] HEMATOLOGY Eosinophils 0.0 0.0 - 4.0 03/30/2012 Normal [facility] HEMATOLOGY Lymphocytes 14.3 20.0 - 40.0 03/30/2012 LOW [facility] HEMATOLOGY Monocytes 6.5 2.0 - 12.0 03/30/2012 Normal [facility] HEMATOLOGY Hgb 12.8 12.0 - 16.0 03/30/2012 Normal [facility] HEMATOLOGY WBC 8.2 3.7 - 10.4 03/30/2012 Normal [facility] HEMATOLOGY RBC 3.98 4.20 - 5.40 03/30/2012 LOW [facility] HEMATOLOGY Platelet 318 133 - 450 03/30/2012 Normal [facility] HEMATOLOGY MPV 7.6 7.4 - 10.4 03/30/2012 Normal [facility] HEMATOLOGY Hct 37.5 36.0 - 48.0 03/30/2012 Normal [facility] HEMATOLOGY MCHC 34.2 32.0 - 36.0 03/30/2012 Normal [facility] HEMATOLOGY RDW 12.4 11.5 - 14.5 03/30/2012 Normal [facility] HEMATOLOGY MCV 94.3 81.0 - 99.0 03/30/2012 Normal [facility] HEMATOLOGY MCH 32.3 27.0 - 31.0 03/30/2012 [facility] Pathology Reports No Data Provided for This Section Diagnostic Reports Report Value Date Source Chest 2 views DX EXAM: Chest 2 views DX DATE: 05/09/2019 12:14 CDT INDICATION: - F32.9 Major depressive disorder, single episode, unspecified COMPARISON: None. IMPRESSION: Grossly normal cardiac silhouette and mediastinum. The lungs are hyperexpanded. No focal consolidation, significant pleural effusion or pneumothorax. Old lateral left upper rib fractures are present. Surgical clips are present in the right upper quadrant. Mild thoracic spondylosis. SL: [id number] 05/09/2019 [facility] wo contrast CT Study: CT CHEST WITHOUT CONTRAST Clinical Indication: - Pneumonia, cough Comparison: CT chest 08/18/2018 and chest 04/14/2019 Technique: Axial images with sagittal and coronal reconstructions were obtained without contrast. CT imaging performed at this location utilizes radiation dose optimization techniques which include one or more of the following: -Automated exposure control -Adjustment of the mA and/or kV according to patient size -Use of iterative reconstruction technique CT Radiation Dose DLP 360.76 mGy-cm FINDINGS: The lungs are emphysematous with extensive interstitial scarring. There is persistent chronic peripheral bilateral atelectasis. More focal lingular consolidation with air bronchograms has developed, consistent with pneumonia. Tiny bilateral pleural effusions are associated with minor lower lobe atelectasis. There are minimal coronary artery calcifications, post sternotomy. No gross hilar or mediastinal adenopathy is identified. No pericardial effusion is seen. Limited images of the upper abdomen are remarkable for cholecystectomy and a benign hepatic calcification. IMPRESSION: 1. Progressive lingular consolidation consistent with pneumonia. 2. Emphysema with extensive interstitial scarring and peripheral peripheral bilateral atelectasis. 3. Sternotomy with minimal coronary artery calcifications. 4. Tiny pleural effusions with lower lobe atelectasis. 5. Cholecystectomy. SL: [id number] 04/15/2019 [facility] Chest 2 views DX EXAM: PA and lateral radiographs of the chest, 2 images obtained INDICATION: Pneumonia, cough, fever COMPARISON: 09/17/2018 chest radiographs FINDINGS: Heart, mediastinum, and pulmonary vessels are within normal limits. Patchy consolidative opacities involve the left lower lobe. Lung apices are clear. No pneumothorax or pleural effusion identified. IMPRESSION: Nodular consolidative opacities in the left lower lobe likely represent pneumonia in setting of fever and cough. Follow-up to radiographic resolution is recommended to exclude malignancy. SL: EJOHTORRIE 04/14/2019 [facility] Spine lumbar 2 or 3 views DX Patient Name: DAISHA MASSEY : 1930; Age: 88 years Female MR: [id number] Study: Spine lumbar 2 or 3 views DX 04/02/2019 12:18 CDT CLINICAL INDICATION: - M54.5 Low back pain COMPARISON: None FINDINGS: Views and laterality: Lumbar spine 3 views There are 5 nonrib-bearing lumbar type vertebral bodies. The lumbar vertebral bodies are of normal height and alignment. No acute fracture. No subluxation. Moderate disc space narrowing at L4-L5. Prominent facet arthropathy lower lumbar spine. No gross soft tissue abnormalities. IMPRESSION: No acute lumbar spine abnormalities. Moderate degenerative disc disease at L4-L5. SL: [id number] 04/02/2019 [facility] Spine Thoracic 4+ views DX Patient Name: DAISHA MASSEY : 1930; Age: 88 years Female MR: [id number] Study: Spine Thoracic 4+ views DX 04/02/2019 12:15 CDT CLINICAL INDICATION: - M54.5 Low back pain, COMPARISON: CT chest on 08/18/2018 FINDINGS: Views and laterality: Thoracic spine 3 views Moderate thoracic kyphosis. Stable chronic anterior wedge deformity of T5 vertebral body. No acute fracture. No subluxation. No significant disc space narrowing. Postoperative changes of the thorax. IMPRESSION: No acute thoracic spine abnormalities. Moderate thoracic kyphosis. Stable chronic anterior wedge deformity of T5 vertebral body when compared to 08/18/2018. SL: [id number] 04/02/2019 [facility] Pelvis AP DX Study: Pelvis, single view Clinical Indication: - fall, pelvic pain Comparison: Plain films of the left hip from 07/22/2018 FINDINGS: Single frontal view of the pelvis shows no acute displaced bony fracture or joint dislocation. Degenerative disc disease in the lower lumbar spine is seen. Soft tissues are unremarkable. IMPRESSION: No acute bony abnormality of the pelvis. SL: [id number]-PC 09/17/2018 [facility] Brain wo contrast CT Patient Name: SAMANTHA MASSEY : 1930; Age: 87 years y/o Female MR: [id number] Study: Brain wo contrast CT 09/17/2018 4:03 PM ENVIRONMENTAL PROGRAM MANAGER Clinical Indication: - fall; head injury Comparison: 07/22/2018 TECHNIQUE: CT images were obtained from the foramen magnum to the vertex without the use of intravenous contrast on a multidetector CT. Coronal and sagittal reconstructions were obtained. CT imaging performed at this location utilizes radiation dose optimization techniques which include one or more of the following: -Automated exposure control -Adjustment of the mA and/or kV according to patient size -Use of iterative reconstruction technique CT Radiation Dose DLP 909.3 mGy-cm FINDINGS: BRAIN PARENCHYMA: Left vertebral and bilateral carotid artery calcification. Patchy low density in the frontal and occipital white matter bilaterally, right external capsule, ta radiata bilaterally and centrum semiovale bilaterally consistent with small vessel changes. Old infarction is seen in the right lateral frontal lobe. No evidence for subarachnoid, intraparenchymal or intraventricular hemorrhage. No significant extra-axial fluid collection, mass effect or shift. No evidence for an acute infarction. No mass lesions identified about the brain. VENTRICLES: The ventricles and sulci are enlarged for the patient's age but not out of proportion to each other. Findings are consistent with changes of cerebral atrophy. ORBITS, MASTOIDS AND PARANASAL SINUSES: The visualized orbits and paranasal sinuses are unremarkable. The mastoid air cells are clear. SKULL: There are no osseous abnormalities. If there is further concern for intracranial pathology or acute stroke, MRI of the brain may be performed for complete assessment. IMPRESSION: 1. Intracranial vascular calcification as above. 2. Small vessel changes. 3. 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 4. Cerebral atrophy. SL: JASVIR 09/17/2018 [facility] cervical wo contrast CT Clinical Indication: Pain Post Trauma - fall; Comparison: 07/22/2018 Technique: Multi-detector CT imaging of the cervical spine is performed. Coronal and sagittal reconstructions were obtained. CT imaging performed at this location utilizes radiation dose optimization techniques which include one or more of the following: -Automated exposure control -Adjustment of the mA and/or kV according to patient size -Use of iterative reconstruction technique CT Radiation Dose DLP 144 mGy-cm FINDINGS: ALIGNMENT AND GENERAL ASSESSMENT: There is stable alignment of the cervical spine. There are no fractures or subluxations. The posterior elements and spinous processes are intact. The facet joint, spinolaminar and spinous process alignment are maintained. DISK SPACES AND SOFT TISSUES: The prevertebral soft tissues are normal. Degenerative changes are again noted C3-C4 facet arthropathy contributes to at least mild left foraminal stenosis. No canal stenosis. C4-C5 disc bulging without canal stenosis. Facet arthropathy contributes to mild left foraminal stenosis. C5-C6 and C6-C7 loss of disc spacing with endplate spurring likely associated with some diffuse disc bulging without obvious critical canal or foraminal stenosis. There is facet arthropathy. MRI is the gold standard to assess for disk disease. VISUALIZED LUNG APICES: Biapical pleural parenchymal scarring and some calcification. CT myelogram or MRI of the cervical spine may be performed, if there is further concern. IMPRESSION: No fractures or subluxations of the cervical spine. Degenerative changes again shown SL: [id number] 09/17/2018 [facility] 1view DX Patient Name: SAMANTHA MASSEY : 1930; Age: 87 years y/o Female MR: [id number] Study: Chest 1view DX dated 09/17/2018. Clinical Indication: - fall; chest injury Comparison: 08/20/2018 Prior left posterior 4th, 5th and 6th rib fractures again identified. Patient is status post median sternotomy. Enlarged cardiac silhouette and mediastinal structures are stable including aortic calcification. Slight atelectasis in the left lung base. Lateral blunting of both costophrenic angles may represent minimal bilateral pleural effusions. No other focal infiltrates within the lungs, no edema and no pneumothorax. Increased lung volumes. SL: CSODERSTROM-PC 09/17/2018 [facility] 1view DX [facility] 1view DX 08/20/2018 3:00 AM ENVIRONMENTAL PROGRAM MANAGER Ordering Physician: Alexey Cruz MD CLINICAL HISTORY: Abnormal chest sounds - pneumonia; TECHNIQUE: A single AP view of the chest was obtained. COMPARISON: CT August 18, 2018. FINDINGS: Left lingular nodular density is again seen. Scattered groundglass opacities seen on recent CT are not appreciated radiographically. No radiographically detectable pneumothorax is present. The heart is at the upper limits of normal in size. No acute osseous abnormality is evident. IMPRESSION: 1. No significant change. SL: [id number] 08/20/2018 [facility] wo contrast CT Patient Name: SAMANTHA MASSEY : 1930; Age: 87 years Female MR: [id number] Study: Chest wo contrast CT 08/18/2018 9:32 AM ENVIRONMENTAL PROGRAM MANAGER Clinical Indication: - pneumonia. Pt had a hypoxic episode at rehab facility and oxygen sat was 76%. Placed pt on 4L/NC and pt satting at 99% . Hx: recent hip fx one month ago. fever COMPARISON: July 22, 2018 CAT scans. September 06, 2009. Chest x-ray August 16, 2018. TECHNIQUE: Sequential trans-axial images were obtained thru the chest and upper abdomen without the administration of iodinated contrast. Coronal and sagittal reconstructions were obtained. CT imaging performed at this location utilizes radiation dose optimization techniques which include one or more of the following: -Automated exposure control -Adjustment of the mA and/or kV according to patient size -Use of iterative reconstruction technique CT Radiation Dose DLP 378 mGy-cm FINDINGS: LUNG PARENCHYMA AND PLEURA: Lingular nodular density measures 3 mm. More inferior nodular density measures 4.4 mm. Bilateral upper lobe groundglass infiltrates. Right middle lobe groundglass infiltrates. Scattered right lower lobe infiltrate. Bilateral pleural effusions. Bilateral lower lobe atelectasis. There is no pneumothorax. AIRWAY: The central airway is normal. Bronchial wall thickening. Right middle lobe bronchiectasis. Mild bibasilar traction bronchiectasis. MEDIASTINUM: Poststernotomy. The non-contrast enhanced images of the mediastinum show no pathologic mediastinal lymphadenopathy. Coronary artery calcifications. There is normal aortic caliber. OSSEOUS STRUCTURES: Left lumbar spine transverse process fractures involve L2, L3 incompletely evaluated. Mild thoracic spurring. Left T4, T5, T6 transverse process fractures. Left rib fractures involving the fifth and sixth ribs with mild displacement. Postcholecystectomy. VISUALIZED NON-CONTRAST ENHANCED UPPER ABDOMEN: Postcholecystectomy. Right adrenal calcification. Moderate hiatal hernia. IMPRESSION: 1. Transverse process fractures of the thoracic and lumbar spine as described above. 2. Nondisplaced left fifth and sixth rib fractures. 3. Bronchial wall thickening which may be seen with bronchitis. 4. Groundglass infiltrates bilaterally which may be seen with pneumonitis or pneumonia. 5. Left pulmonary nodules, three-month follow-up chest CT is recommended to document resolution. SL: [id number] 08/18/2018 [facility] Abdomen RUQ Patient Name: SAMANTHA MASSEY : 1930; Age: 87 years Female MR: [id number] Study: Abdomen RUQ US 08/16/2018 8:12 PM ENVIRONMENTAL PROGRAM MANAGER Clinical Indication: - elevated LFTs. COMPARISON: Ultrasound 01/31/2018. Computed axial tomography scan 07/22/2018. TECHNIQUE: Grayscale and limited color sonographic evaluation of the right upper quadrant of the abdomen and gallbladder region was performed with standard technique. Bowel gas limits detail. FINDINGS: LIVER: The visualized liver shows normal contour, size, and morphology. There is normal parenchymal echotexture. BILE DUCTS: The intrahepatic and extrahepatic bile ducts are not dilated. The common bile duct measures 4.4 mm. The distal common bile duct is not well seen. GALLBLADDER: Surgically absent. PANCREAS: The pancreas body is normal. The head and tail are obscured by bowel gas. KIDNEY: The right kidney measures 8.5 x 4.4 x 4.2 cm. The renal cortical thickness measures 1.3 cm. There is normal renal contour and morphology, with normal parenchymal echotexture. There is no hydronephrosis. ASCITES: There is no right upper quadrant abdominal ascites. IMPRESSION: 1. Postcholecystectomy. SL: [email or web address] 08/16/2018 [facility] Chest 1view DX Clinical Indication: - Undifferentiated Sepsis. Comparison: 07/22/2018. TECHNIQUE: AP 1 view chest radiograph was performed. FINDINGS: LUNGS: Normal lung volumes. No interstitial or airspace opacities. No pleural effusions or pneumothorax. Some unchanged scattered left lower lung zone areas of parenchymal scarring or pleural thickening are seen. HEART AND MEDIASTINUM: The heart size is normal. 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 The pulmonary vasculature is normal. There is a mildly tortuous thoracic aorta. The trachea is midline. OSSEOUS STRUCTURES: No acute abnormality seen. IMPRESSION: 1. No confluent infiltrates in the lungs. Unchanged left lower lung zone area of parenchymal scarring or pleural thickening. SL: [id number] 08/16/2018 [facility] Carotid artery Doppler bilat US EXAM: US EXTRACRANIAL ARTERIAL DOPPLER DATE: 07/23/2018 12:05 AM CDT INDICATION: - Syncope workup , assess stenosis COMPARISON: Ultrasound soft tissue head and neck on March 06, 2018 TECHNIQUE: Multiplanar grayscale, color Doppler and spectral Doppler ultrasound of the carotid and vertebral arteries. FINDINGS: Right Carotid System: Right Common Carotid Artery (RCCA): Normal velocity and waveform. No significant plaque. Right Internal Carotid Artery (JACKSON): Normal velocity and waveform. No significant plaque. Right External Carotid Artery (RECA): Normal velocity and waveform. No significant plaque. Right Vertebral Artery (RVA): Normal velocity and waveform. Left Carotid System: Left Common Carotid Artery (LCCA): Normal velocity and waveform. No significant plaque. Left Internal Carotid Artery (LICA): Normal velocity and waveform. No significant plaque. Left External Carotid Artery (LECA): Normal velocity and waveform. No significant plaque. Left Vertebral Artery (LVA): Normal velocity and waveform. IMPRESSION: 1. Right internal carotid artery: Normal velocity and waveform with no significant plaques. 2. Left internal carotid artery: Normal velocity wave form with no significant plaques. 3. Vertebral arteries: Antegrade flow with normal waveforms bilaterally. According to the 2003 Consensus criteria: <50% stenosis: PSV <125 cm/sec, EDV <40cm/sec, ICA:CCA ratio <2 50-69% stenosis: PSV 125-230cm/sec, EDV 40-100cm/sec, ICA:CCA ratio 2-4 >70% stenosis: PSV >230cm/sec, EDV >100cm/sec, ICA:CCA ratio >4 REFERENCE: Radiology. 2003 [id number]. Carotid Artery Stenosis: Fisher-scale and Doppler US diagnosis- Society of Radiologists in Ultrasound Consensus Conference. Adarsh EG, Robert CB, Ciara GL, et. al. 07/23/2018 [facility] Chest/Abdomen/Pelvis w IV contrast CT EXAM: CT CHEST WITH CONTRAST EXAM: CT ABDOMEN AND PELVIS WITH CONTRAST DATE: 07/22/2018 at 2300 hours INDICATION: - Trauma ADDITIONAL INFORMATION: 'fall, broken ribs' COMPARISON: CT chest 07/22/2018; CT lumbar spine 07/22/2018. TECHNIQUE: Volumetric CT of the chest, abdomen and pelvis is acquired following intravenous administration of contrast. Axial, coronal and sagittal images are provided. IV contrast: 75 mL Visipaque [id number] Oral contrast: None. DLP: 1200 mGy-cm UT SECTION: ER FINDINGS: Lines and tubes: Median sternotomy wires are intact. Lower Neck: Supraclavicular soft tissues are unremarkable. Thoracic Aorta and Mediastinum: No mediastinal hematoma or thoracic aortic injury. Normal heart and pericardium. Lungs, Pleura, Diaphragm: No pulmonary contusions. Scattered tree-in-bud centrilobular nodules are again seen in the bilateral lower lobes, predominantly in subpleural distribution. Particularly areas of scarring and/or atelectasis are noted in the lung bases. Bronchiectasis is noted in the right middle lobe. No pleural effusion or pneumothorax. No diaphragmatic injury. Liver and biliary tree: Normal. No injury. No biliary abnormality. Gallbladder: Surgically absent. Pancreas: Normal. No injury. Spleen: Normal. No injury. Adrenals: Normal. No injury. Kidneys and ureters: Normal. No injury. Bladder: Normal. No injury. Reproductive organs: No injury. The uterus is not seen consistent with prior hysterectomy. Gastrointestinal tract: A small hiatal hernia is noted. No bowel injury. The appendix is not definitively identified, however no pericecal inflammatory changes are noted. Peritoneum and retroperitoneum: No fluid collections or free air. Lymph nodes: Normal. Vasculature: No vascular injury. Spine/ Bones: There is mild acute compression deformity involving the inferior endplate of T5. There is mild compression deformity involving the superior endplate of T3 that is likely old. No acute abnormality of the spine is otherwise identified. Nondisplaced fractures of the left posterior 5th and 6th ribs are again noted. Minimally displaced fractures of the left L1, L2, L3, and L4 transverse processes are noted. Degenerative disc disease noted at L4-L5 with disc height loss and adjacent endplate sclerosis. Soft tissues: Soft tissue stranding is noted of the retrolumbar soft tissues. IMPRESSION: 1. Minimally displaced fractures of the left L1, L2, L3, and L4 transverse processes. 2. Unchanged nondisplaced fracture left posterior 5th and 6th ribs. 3. Mild acute compression deformity involving the inferior endplate of T5. This additional finding was discussed with trauma chief, Dr. Bergman, on 07/23/2018 at 0300 hours. 4. Soft tissue stranding of the retrolumbar soft tissues. 5. Scattered tree-in-bud nodular opacities in the right mid to lower lung zones with associated bronchiectasis likely representing a chronic or recurrent atypical infection. 6. Small hiatal hernia. Discussed with the trauma chiefPacheco, 07/23/2018 at 0300 hours. 07/22/2018 [facility] Shoulder series DX EXAM: XR RIGHT SHOULDER 3 VIEWS DATE: 07/22/2018 8:42 PM CDT INDICATION: - Pain COMPARISON: None. TECHNIQUE: AP views in internal and external rotation, and an axillary view of the shoulder FINDINGS: No acute fracture or malalignment is identified. No soft tissue abnormality is identified. IMPRESSION: No acute abnormality. UT SECTION: ER 07/22/2018 [facility] Hip wo contrast CT Patient Name: SAMANTHA MASSEY : 1930; Age: 87 years y/o Female MR: [id number] * COMPUTED TOMOGRAPHY SCAN OF THE LEFT HIP without contrast Clinical Indication: Trauma, injury to the left hip. Status post fall; left hip pain. Comparison: None TECHNIQUE: Helical CT images were obtained through the through the pelvis and upper thighs utilizing a multidetector helical CT scanner. Intravenous contrast was not administered. High-resolution axial, sagittal, and coronal images of the left hip were provided. CT imaging performed at this location utilizes radiation dose optimization techniques which include one or more of the following: -Automated exposure control. -Adjustment of the mA and/or kV according to patient size. -Use of iterative reconstruction technique. CT radiation dose DLP: 959 mGy-cm IMPRESSION: 1. No evidence of fracture involving the pelvis or left hip. 2. There are no degenerative changes involving the left hip. 3. No destructive lesions or other osseous abnormalities. 4. Mild degenerative facet disease is noted in the lower lumbosacral region. There is also mild degenerative disc disease at L4-L5. 5. Moderate sigmoid diverticulosis without evidence of diverticulitis. 6. The uterus is not visualized. Presumably, the patient has had a prior hysterectomy. SL: [id number] 07/22/2018 [facility] Chest wo contrast CT Clinical Indication: - pain post trauma- L sided ribs and midline spine. Comparison: 09/06/2009 TECHNIQUE: Sequential trans-axial images were obtained through the chest and upper abdomen without intravenous contrast. Oral contrast not administered. Coronal and sagittal reconstructions were obtained. Additional coned down reconstructions of the thoracic spine were obtained. CT imaging performed at this location utilizes radiation dose optimization techniques which include one or more of the following: -Automated exposure control -Adjustment of the mA and/or kV according to patient size -Use of iterative reconstruction technique CT Radiation Dose DLP 364.2 mGy-cm FINDINGS: LUNG PARENCHYMA AND PLEURA: Scattered tree-in-bud centrilobular nodules are seen in the bilateral lower lobes, predominantly in the subpleural distribution. Reticular areas of scarring versus atelectasis in the lung bases. No confluent areas of consolidation. There is no significant interstitial lung disease. There are no pleural effusions. There is no pneumothorax. AIRWAY: The central airway is normal. There is mild bronchiectasis in the lingula and right middle lobe. MEDIASTINUM: No significant mediastinal lymphadenopathy. HEART: Cardiac size is within normal limits. There is no pericardial effusion. VASCULAR STRUCTURES: The pulmonary artery and thoracic aorta are normal in caliber. OSSEOUS STRUCTURES: Acute nondisplaced fractures of the left fifth and sixth ribs. Thoracic spine is intact. CHEST WALL: Chest wall and axillary regions are unremarkable. VISUALIZED UPPER ABDOMEN: The visualized upper abdomen is within normal limits. Prior cholecystectomy. IMPRESSION: 1. Acute nondisplaced fractures of left fifth and sixth rib posteriorly. No pneumothorax. 2. Scattered tree-in-bud nodular opacities in the mid to lower lung zones bilaterally. Findings are favored to represent chronic/recurrent atypical infection (such as mycobacterium avium complex). Areas of bronchiectasis in the right middle lobe and lingula are seen, suggesting a long-standing process. SL: [id number] 07/22/2018 [facility] Chest 1view DX Clinical Indication: Shortness of breath, lightheaded Comparison: 05/16/2018 FINDINGS: The frontal chest radiograph shows normal lung volumes. There is minimal patchy alveolar opacification within the left lower lobe. There are no pleural effusions. The cardiomediastinal contours are normal for the age of the patient with aortic tortuosity. Midline sternotomy wires are intact. There are degenerative changes in the spine and shoulders. IMPRESSION: Left lower lobe atelectasis versus pneumonia. SL: [id number] 07/22/2018 [facility] Hip 4+ views uni w pelvis DX Left hip Clinical Indication: Acute left hip pain s/p fall Comparison: None FINDINGS: The AP and frog-leg views of the hip show normal alignment without fractures or dislocations. There are no radio-opaque foreign bodies. The acetabulum is unremarkable. There is no radiographic evidence of femoro-acetabular impingement or acetabular dysplasia. The visualized sacroiliac joint and symphysis pubis are unremarkable. If there is further concern, recommend follow-up radiographs or MRI for complete assessment. IMPRESSION: No fracture or dislocation of the left hip. SL: [id number] 07/22/2018 [facility] Spine lumbar wo contrast CT Patient Name: SAMANTHA MASSEY : 1930; Age: 87 years Female MR: [id number] Study: Spine lumbar wo contrast CT 07/22/2018 12:12 PM CDT Clinical Indication: - pain post trauam fall. COMPARISON: MRI lumbar spine 11/06/2016 TECHNIQUE: Sequential trans-axial images were obtained with a multi-detector helical CT. Coronal and sagittal reconstructions were obtained. CT imaging performed at this location utilizes radiation dose optimization techniques which include one or more of the following: -Automated exposure control -Adjustment of the mA and/or kV according to patient size -Use of iterative reconstruction technique CT Radiation Dose DLP 581.74 mGy-cm FINDINGS: ALIGNMENT AND GENERAL ASSESSMENT: No acute compression fracture demonstrated. Vertebral body heights appear preserved. Levoscoliotic curvature lumbar spine. Left lateral listhesis of L4 on L5 measures 5.6 mm. Severe disc degenerative changes at L4-L5. There are acute left-sided transverse process fractures at L2-L3 and L4. No other acute fractures are evident. The paraspinous soft tissues appear unremarkable. DISC SPACES AND SOFT TISSUES: Severe disc degenerative changes at L4-L5. Mild multilevel disc degenerative changes throughout the remainder of the lumbar spine. Mild multilevel diffuse disc bulges are present. There is no large disc bulge or protrusion clearly delineated. Lack of intrathecal contrast limits sensitivity for detection of spinal canal stenosis. Moderate right foraminal narrowing at the L4-L5 level. If there is further concern, CT myelogram or MRI of the lumbar spine may be performed for complete assessment. IMPRESSION: 1. Acute left-sided transverse process fractures of L2, L3 and L4. 2. No acute compression fracture evident. 3. Degenerative levoscoliosis. Degenerative changes are most prominent at L4-L5. SL: [id number] 07/22/2018 [facility] Brain wo contrast CT Patient Name: SAMANTHA MURRAY DIAL : 1930; Age: 87 years Female MR: [id number] Study: Brain wo contrast CT 07/22/2018 11:55 AM CDT Clinical Indication: - fall. Fall this morning from standing position. COMPARISON: MRI brain 08/06/2017 TECHNIQUE: CT images were obtained from the foramen magnum to the vertex without the use of intravenous contrast on a multidetector CT. Coronal and sagittal reconstructions were obtained. CT imaging performed at this location utilizes radiation dose optimization techniques which include one or more of the following: -Automated exposure control -Adjustment of the mA and/or kV according to patient size -Use of iterative reconstruction technique CT Radiation Dose DLP 982.82 mGy-cm FINDINGS: BRAIN PARENCHYMA: There is an old right frontal lobe infarct. No acute intracranial bleed, midline shift or mass effect. No extra-axial fluid collection evident. Nonspecific periventricular white matter changes likely reflect age-related chronic small vessel ischemic disease. VENTRICLES: The ventricles are normal in size and configuration. The basilar cisterns are normal. ORBITS, MASTOIDS AND PARANASAL SINUSES: The visualized orbits are normal. The paranasal sinuses are normal. The mastoid air cells are clear. SKULL: There are no osseous abnormalities. If there is further concern for intracranial pathology or acute stroke, MRI of the brain may be performed for complete assessment. IMPRESSION: 1. No acute intracranial bleed, midline shift or mass effect. 2. Old right frontal lobe infarct. SL: JONAH 07/22/2018 [facility] Spine cervical wo contrast CT Patient Name: SAMANTHA MASSEY : 1930; Age: 87 years Female MR: [id number] Study: Spine cervical wo contrast CT 07/22/2018 11:55 AM CDT Clinical Indication: - fall fall. Trauma.. COMPARISON: CT neck 05/16/2018 Technique: Multi-detector CT imaging of the cervical spine is performed. Coronal and sagittal reconstructions were obtained. CT imaging performed at this location utilizes radiation dose optimization techniques which include one or more of the following: -Automated exposure control -Adjustment of the mA and/or kV according to patient size -Use of iterative reconstruction technique CT Radiation Dose DLP 438.91 mGy-cm FINDINGS: ALIGNMENT AND GENERAL ASSESSMENT: Alignment is within normal limits. Vertebral body heights are maintained. The facet joints align appropriately. No acute fracture demonstrated. No subluxation. DISC SPACES AND SOFT TISSUES: The prevertebral soft tissues are normal. Moderate to severe disc degenerative changes at C5-C6 and C6-C7. MRI is the gold standard to assess for disc disease. Age-indeterminate minimal superior endplate deformity of T3 is age- indeterminate. This is unchanged from the prior CT and is likely chronic in nature. CT myelogram or MRI of the cervical spine may be performed, if there is further concern. IMPRESSION: 1. No acute cervical spine fracture or subluxation demonstrated. SL: JONAH 07/22/2018 [facility] Neck w/wo contrast MRI EXAM: MRI OF THE NECK WITHOUT AND WITH CONTRAST DATE: 05/17/2018 5:04 AM CDT INDICATION: Dyspnea. Laryngeal pain. COMPARISON: CT neck of 05/16/2018. TECHNIQUE: Multiplanar imaging of the neck was obtained before and after the intravenous administration of gadolinium. IV contrast: About 6.0 cc of Dotarem utilized. FINDINGS: Motion artifact degrades image quality. Airway is patent and midline. No pathologic adenopathy by imaging criteria. No abnormal enhancement or mass. Parotid, submandibular, and thyroid glands are normal. Flow voids are maintained. No bone marrow signal abnormalities. IMPRESSION: 1. Limited study as above. No definite soft tissue neck mass or pathologic adenopathy detected. SL: [id number] 05/17/2018 [facility] Neck soft tissue wo contrast CT Clinical Indication: - dypnea/laryngeal pain Comparison: Comparison is made to the CT study of 07/06/2007 Technique: CT of the neck is performed with a multidetector CT. Coronal and sagittal reconstructions were obtained. Contrast: none, which limits assessment. CT Radiation Dose DLP 408 mGy-cm FINDINGS: SOFT TISSUES: There are no neck masses noted. There are no fluid collections or definite abscesses. LYMPH NODES: There is no submandibular lymphadenopathy. There is no jugular chain or posterior cervical chain lymphadenopathy or masses. The nasopharyngeal adenoids and tonsillar pillar regions appear unremarkable. SALIVARY GLANDS: The submandibular and parotid glands are unremarkable. PARANASAL SINUSES AND AIRWAY: The paranasal sinuses are clear without soft tissue thickening or air-fluid levels. The nasopharyngeal, oropharyngeal, supraglottic and infraglottic airway is unremarkable. SUPRAHYOID NECK: The oropharynx, oral cavity, parapharyngeal space, and retropharyngeal space are normal on this limited noncontrast CT. INFRAHYOID NECK: The valleculae and piriform sinuses are normal. The larynx, hypopharynx, epiglottis and supraglottis are normal on this limited noncontrast CT. ORBITS: The visualized orbits are unremarkable. VASCULAR STRUCTURES: The jugular veins and carotid vessels are unremarkable. OSSEOUS STRUCTURES: There is degenerative changes of the C5-C6 and C6-C7 disc spaces with spondylosis.. There are no lucencies at the bases of the mandibular teeth to suggest abscess. There are no radiopaque foreign bodies noted. THYROID GLANDS: The thyroid lobes are symmetric and there are no lesions. VISUALIZED LUNG APICES: Patient is status post a sternotomy. There are no pulmonary masses or consolidation. If there is further concern for neck masses or malignancy, postcontrast neck CT, PET/CT imaging or MRI of the neck should be performed for complete assessment. IMPRESSION: Unremarkable limited noncontrast CT examination of the neck. Findings are stable. SL: [id number] 05/16/2018 [facility] Chest 1view DX Clinical Indication: dyspnea Comparison: 05/27/2016 FINDINGS: The frontal chest radiograph shows normal lung volumes. There are no opacities, pleural effusions or pneumothorax. The cardiomediastinal contours are normal for the age of the patient with aortic tortuosity. The patient has undergone prior sternotomy. There are degenerative changes in the spine and shoulders. IMPRESSION: No chest radiographic evidence of acute cardiopulmonary abnormality. SL: [id number] 05/16/2018 [facility] Soft Tissue Head/Neck US Soft Tissue Head/Neck US Female 87 years Clinical Indication: - M54.2 Cervicalgia; stem cell therapy for macular degeneration. Pain in the right neck for 3 weeks. Takes breath away. Comparison: None Technique: Examination of the neck is performed using a high-resolution linear array transducer with specific attention to an area of pain in the superior aspect of the right upper neck. FINDINGS: Examination demonstrates normal vascular structures. There is no evidence of abnormal fluid collection. The majority of the images demonstrate normal subcutaneous fat and muscular structures. At the end of the examination there are a few images of the right parotid gland. These show no evidence of localized hyperemia or abnormal fluid collection. No unusual calcifications or dilated ducts are noted. IMPRESSION: No definite well-defined solid or cystic mass identified. Negative focused exam of the right neck. SL: [id number] 03/06/2018 [facility] Abdomen complete US Patient Name: SAMANTHA MURRAY DIAL : 1930; Age: 87 years Female MR: [id number] Study: Abdomen complete US 01/31/2018 9:53 AM CDT CLINICAL INDICATION: - blood loss COMPARISON: None TECHNIQUE: Grayscale and limited color sonographic evaluation of the abdomen was performed using standard technique. FINDINGS: Liver: The liver demonstrates normal echogenicity and is normal in size, measuring 10.8 cm. No focal liver lesion identified. The main portal vein demonstrates normal hepatopedal flow. Gallbladder: Cholecystectomy. Biliary: No intra or extrahepatic biliary ductal dilatation. The common bile duct measures 0.6 cm. Pancreas: The visualized portions of the pancreatic body are unremarkable. Spleen: The spleen is normal in echogenicity and in size, measuring 7.9 cm in length. Kidney: The right kidney measures 8.5 cm in length. The left kidney measures 8.9 cm in length. Normal renal echogenicity and contour without evidence of hydronephrosis. Aorta and IVC: The visualized portions are unremarkable. No evidence of free fluid. IMPRESSION: Cholecystectomy. Otherwise, unremarkable abdominal ultrasound. 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 Patient states new onset dizzy spells for the past 6 weeks. No trauma or injury occured.; Comparison: 11/01/2009 TECHNIQUE: MRI of the brain is performed without gadolinium contrast with axial T1, T2, FLAIR and diffusion weighted imaging along with sagittal T2, and coronal T1 weighted imaging. FINDINGS: There is no acute intracranial hemorrhage, infarct, mass, focal edema, midline shift or herniation. There is moderate generalized cerebral volume loss with associated ventricular prominence. There are moderate nonspecific FLAIR hyperintensities in the periventricular and deep hemispheric white matter likely representing chronic small vessel ischemic changes in this age. There is a moderate-sized cortically based encephalomalacia/gliosis in the right inferior frontal gyrus and frontal operculum likely related to an old infarct. The basilar cisterns are unremarkable. The posterior fossa and midline structures are grossly unremarkable. The central intracranial flow voids are maintained. The paranasal sinuses and mastoids are clear. The intraocular lenses have been replaced. IMPRESSION: 1. No acute intracranial process. 2. Moderate generalized volume loss and chronic small vessel ischemic changes in the supratentorial white matter. 3. Old right frontal infarct. 08/06/2017 [facility] Neck wo contrast MRA Study: Neck wo contrast MRA 11/29/2016 10:53 AM ENVIRONMENTAL PROGRAM MANAGER Patient Name: SAMANTHA MASSEY MR: [id number] : 1930; Age: 86 years y/o Female Ordering Physician: Alexey Cruz MD Clinical Indication: Bilateral carotid stenosis. Comparison: MRA neck 12/10/2009. TECHNIQUE: Magnetic resonance angiography of the neck was performed without contrast. Three-dimensional rotational images were also prepared. MRA NECK: Mild to moderate motion artifact greatest on the axial 2-D [id number] images. Aortic arch and great vessel origins: Never visualized. Brachiocephalic trunk: The visualized portions are normal. Subclavian arteries: Limited visualization without definite abnormality. Right carotid artery: The visualized portions are normal without evidence of significant atherosclerosis, narrowing, or dissection. Left carotid artery: The visualized portions are normal without evidence of significant atherosclerosis, narrowing, or dissection. Vertebral arteries: Incomplete visualization of the vertebral artery origins. The visualized portions of the vertebral arteries are normal. Any reported ICA stenosis directly references the distal internal carotid diameter as the denominator for stenosis measurement. IMPRESSION: Mildly to moderately limited examination demonstrating no evidence of carotid artery or vertebral artery stenosis as above discussed. SL: [id number] 11/29/2016 [facility] Chest 1view DX Study: Chest 1view DX Clinical Indication: Pneumonia Comparison: Chest x-ray from 08/31/2009 FINDINGS: The cardiac silhouette is normal in size. The lungs are clear and without consolidation or congestion. No pleural effusion or pneumothorax is seen. The osseous structures are unremarkable. Median sternotomy wires are again noted. IMPRESSION: No acute cardiopulmonary disease. SL: [id number] 05/27/2016 [facility] Renal Stone CT CT ABDOMEN PELVIS WITHOUT CONTRAST: HISTORY: TECHNIQUE: Multislice acquisition of the abdomen and pelvis was done without contrast. Sagittal and coronal reconstructions were also done. FINDINGS: There is no evidence of urinary tract calculus or hydronephrosis. There are no other significant renal abnormalities. The urinary bladder is empty but otherwise unremarkable. The uterus is absent. There is diverticulosis of the sigmoid colon without evidence of diverticulitis. No other significant gastrointestinal tract abnormalities are seen. The liver, spleen, pancreas and adrenal glands show no significant abnormalities. Small linear calcification the right adrenal gland is noted. The gallbladder is been removed. There is no evidence of biliary dilatation. There is no intra-abdominal mass or free fluid. 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 There are no acute osseous abnormalities. IMPRESSION: 1. No evidence of urinary tract calculus or hydronephrosis. 2. No other significant CT abnormalities of the urinary tract. 3. No other acute CT abnormalities in the abdomen or pelvis. [id number] 12/22/2015 [facility] Chest 2 views REASON FOR EXAM: 466.0 Acute Bronchitis. COMPARISON: None. FINDINGS: Two view chest x-ray. Post median sternotomy. The cardiac silhouette is upper limits of normal. There are subsegmental opacities adjacent to both heart borders on the PA view which may be due to atelectasis or pneumonia in the medial aspects of the right middle lobe and lingula. Subsegmental atelectasis versus scarring in the right lower lobe. Blunting of the left costophrenic angle on the PA view may be due to pleural scarring or trace pleural effusion. No demonstrable pneumothorax or vascular congestion. Degenerative changes of the thoracic spine. Surgical clips in the right upper abdomen. IMPRESSION: 1. Post median sternotomy. 2. Subsegmental atelectasis versus pneumonia in the right middle lobe and lingula. Follow-up imaging to resolution is recommended. 3. Subsegmental atelectasis versus scarring in the right lower lobe. 4. Blunting of the left costophrenic angle. SL: 15 02/09/2014 [facility] Consultation Notes No Data Provided for This Section Discharge Summaries No Data Provided for This Section History and Physicals No Data Provided for This Section Vital Signs Vital Sign Value Date Comments Source Weight 127.5 04/23/2019 [id number] Height 59.6 04/23/2019 2.16.840.1.622828.4.391.11.50006 Temperature Oral (F) 96.6 F 04/23/2019 2.16.840.1.829351.4.391.11.32246 Heart Rate 56 04/23/2019 2.16.840.1.698880.4.391.11.96910 Diastolic (mm Hg) 40 04/23/2019 2.16.840.1.826360.4.391.11.48885 Systolic (mm Hg) 134 04/23/2019 2.16.840.1.858330.4.391.11.48513 Systolic (mm Hg) 168 04/18/2019 [facility] Diastolic (mm Hg) 62 04/18/2019 [facility] Heart Rate 75 04/18/2019 [facility] Respitory Rate 16 04/18/2019 [facility] Temperature Oral (F) 98.1 F 04/18/2019 [facility] Systolic (mm Hg) 147 04/18/2019 [facility] Diastolic (mm Hg) 69 04/18/2019 [facility] Heart Rate 82 04/18/2019 [facility] Respitory Rate 16 04/18/2019 [facility] Systolic (mm Hg) 190 04/18/2019 [facility] Diastolic (mm Hg) 44 04/18/2019 [facility] Heart Rate 97 04/18/2019 [facility] Respitory Rate 18 04/18/2019 [facility] Temperature Oral (F) 98.7 F 04/18/2019 [facility] BMI Calculated 25.19 04/14/2019 [facility] Height 152.4 cm 04/14/2019 [facility] Weight 58.5 04/14/2019 [facility] Weight 126.5 04/02/2019 2.16.840.1.898879.4.391.11.03706 Height 59.6 04/02/2019 2.16.840.1.503400.4.391.11.26600 Temperature Oral (F) 97.6 F 04/02/2019 2.16.840.1.020170.4.391.11.78537 Heart Rate 61 04/02/2019 2.16.840.1.902940.4.391.11.76845 Diastolic (mm Hg) 44 04/02/2019 2.16.840.1.014713.4.391.11.71083 Systolic (mm Hg) 130 04/02/2019 2.16.840.1.662691.4.391.11.63836 Weight 124.9 03/10/2019 2.16.840.1.112122.4.391.11.60282 Height 59.6 03/10/2019 2.16.840.1.263895.4.391.11.65925 Temperature Oral (F) 96.8 F 03/10/2019 2.16.840.1.507871.4.391.11.22620 Heart Rate 54 03/10/2019 2.16.840.1.503880.4.391.11.60783 Diastolic (mm Hg) 44 03/10/2019 2.16.840.1.930042.4.391.11.68814 Systolic (mm Hg) 122 03/10/2019 2.16.840.1.871823.4.391.11.90407 Weight 117.9 12/11/2018 2.16.840.1.627854.4.391.11.45703 Height 59.6 12/11/2018 2.16.840.1.498794.4.391.11.63454 Temperature Oral (F) 96.4 F 12/11/2018 2.16.840.1.078232.4.391.11.70430 Heart Rate 58 12/11/2018 2.16.840.1.204504.4.391.11.29613 Diastolic (mm Hg) 50 12/11/2018 2.16.840.1.494653.4.391..00633 Systolic (mm Hg) 150 12/11/2018 2.16.840.1.684606.4.391.11.73150 Systolic (mm Hg) 131 09/18/2018 [facility] Diastolic (mm Hg) 59 09/18/2018 [facility] Heart Rate 115 09/18/2018 [facility] Respitory Rate 19 09/18/2018 [facility] Heart Rate 82 09/18/2018 [facility] Temperature Oral (F) 98.9 F 09/18/2018 [facility] Systolic (mm Hg) 134 09/18/2018 [facility] Diastolic (mm Hg) 74 09/18/2018 [facility] Respitory Rate 18 09/18/2018 [facility] Systolic (mm Hg) 167 09/18/2018 [facility] Diastolic (mm Hg) 69 09/18/2018 [facility] Heart Rate 80 09/18/2018 [facility] Temperature Oral (F) 98.3 F 09/18/2018 [facility] Respitory Rate 15 09/18/2018 [facility] Temperature Oral (F) 97.5 F 09/18/2018 [facility] Height 165.1 cm 09/18/2018 [facility] Weight 54.545 09/18/2018 [facility] BMI Calculated 20.01 09/18/2018 [facility] Weight 54.545 09/17/2018 [facility] BMI Calculated 20.01 09/17/2018 [facility] Height 165.1 cm 09/17/2018 [facility] Systolic (mm Hg) 146 08/21/2018 [facility] Diastolic (mm Hg) 79 08/21/2018 [facility] Respitory Rate 16 08/21/2018 [facility] Heart Rate 76 08/21/2018 [facility] Temperature Oral (F) 98.5 F 08/21/2018 [facility] Respitory Rate 16 08/21/2018 [facility] Systolic (mm Hg) 148 08/21/2018 [facility] Diastolic (mm Hg) 71 08/21/2018 [facility] Heart Rate 78 08/21/2018 [facility] Temperature Oral (F) 98.8 F 08/21/2018 [facility] Respitory Rate 16 08/21/2018 [facility] Temperature Oral (F) 98 F 08/21/2018 [facility] Systolic (mm Hg) 171 08/21/2018 [facility] Diastolic (mm Hg) 73 08/21/2018 [facility] Heart Rate 82 08/21/2018 [facility] BMI Calculated 26.42 08/17/2018 [facility] Weight 61.364 08/17/2018 [facility] Height 152.4 cm 08/17/2018 [facility] Weight 54.545 08/16/2018 [facility] BMI Calculated 23.48 08/16/2018 [facility] Height 152.4 cm 08/16/2018 [facility] Respitory Rate 11 07/25/2018 [facility] Systolic (mm Hg) 169 07/25/2018 [facility] Diastolic (mm Hg) 65 07/25/2018 [facility] Systolic (mm Hg) 173 07/25/2018 [facility] Diastolic (mm Hg) 66 07/25/2018 [facility] Respitory Rate 13 07/25/2018 [facility] Systolic (mm Hg) 138 07/25/2018 [facility] Diastolic (mm Hg) 60 07/25/2018 [facility] Respitory Rate 18 07/25/2018 [facility] Temperature Oral (F) 98.5 F 07/25/2018 [facility] Temperature Oral (F) 98.0 F 07/25/2018 [facility] Temperature Oral (F) 97.5 F 07/25/2018 [facility] Weight 59.091 07/23/2018 [facility] Heart Rate 66 07/23/2018 [facility] Heart Rate 61 07/23/2018 [facility] Heart Rate 58 07/23/2018 [facility] Height 152.4 cm 07/22/2018 [facility] Weight 59.091 07/22/2018 [facility] BMI Calculated 25.44 07/22/2018 [facility] Temperature Oral (F) 98.2 F 07/22/2018 [facility] Systolic (mm Hg) 196 07/22/2018 [facility] Diastolic (mm Hg) 66 07/22/2018 [facility] Respitory Rate 17 07/22/2018 [facility] Respitory Rate 15 07/22/2018 [facility] Systolic (mm Hg) 197 07/22/2018 [facility] Diastolic (mm Hg) 60 07/22/2018 [facility] Temperature Oral (F) 98.1 F 07/22/2018 [facility] Respitory Rate 17 07/22/2018 [facility] Temperature Oral (F) 98.2 F 07/22/2018 [facility] Heart Rate 59 07/22/2018 [facility] Systolic (mm Hg) 187 07/22/2018 [facility] Diastolic (mm Hg) 55 07/22/2018 [facility] Weight 59.091 07/22/2018 [facility] BMI Calculated 25.44 07/22/2018 [facility] Height 152.4 cm 07/22/2018 [facility] Heart Rate 68 07/22/2018 [facility] Weight 133.0 06/20/2018 2.16.840.1.362470.4.391.11.29853 Height 59.6 06/20/2018 2.16.840.1.154565.4.391.11.86359 Temperature Oral (F) 96.1 F 06/20/2018 2.16.840.1.395799.4.391.11.09413 Heart Rate 59 06/20/2018 2.16.840.1.679889.4.391.11.99895 Diastolic (mm Hg) 49 06/20/2018 2.16.840.1.938849.4.391.11.32224 Systolic (mm Hg) 146 06/20/2018 2.16.840.1.122419.4.391.11.57648 Heart Rate 66 05/23/2018 2.16.840.1.687015.4.391.11.48191 Diastolic (mm Hg) 47 05/23/2018 2.16.840.1.882969.4.391.11.84054 Systolic (mm Hg) 137 05/23/2018 2.16.840.1.470102.4.391.11.49094 Temperature Oral (F) 97.6 F 05/23/2018 2.16.840.1.777201.4.391.11.82604 Heart Rate 67 05/17/2018 [facility] Respitory Rate 17 05/17/2018 [facility] Systolic (mm Hg) 129 05/17/2018 [facility] Diastolic (mm Hg) 35 05/17/2018 [facility] Temperature Oral (F) 98.1 F 05/17/2018 [facility] Respitory Rate 16 05/17/2018 [facility] Respitory Rate 17 05/17/2018 [facility] Systolic (mm Hg) 155 05/17/2018 [facility] Diastolic (mm Hg) 47 05/17/2018 [facility] Temperature Oral (F) 97.9 F 05/17/2018 [facility] Heart Rate 57 05/17/2018 [facility] Systolic (mm Hg) 151 05/17/2018 [facility] Diastolic (mm Hg) 64 05/17/2018 [facility] Heart Rate 56 05/17/2018 [facility] Temperature Oral (F) 97.7 F 05/17/2018 [facility] Height 152.4 cm 05/17/2018 [facility] BMI Calculated 25.44 05/17/2018 [facility] Weight 59.091 05/17/2018 [facility] Weight 133.0 05/16/2018 2.16.840.1.025714.4.391.11.99649 Height 59.6 05/16/2018 2.16.840.1.557366.4.391.11.70927 Temperature Oral (F) 97.5 F 05/16/2018 2.16.840.1.609275.4.391.11.82500 Heart Rate 55 05/16/2018 2.16.840.1.767724.4.391.11.47937 Diastolic (mm Hg) 39 05/16/2018 2.16.840.1.948809.4.391.11.40787 Systolic (mm Hg) 138 05/16/2018 2.16.840.1.898179.4.391.11.58192 Weight 133.3 04/18/2018 2.16.840.1.129509.4.391.11.55374 Height 59.6 04/18/2018 2.16.840.1.133728.4.391.11.32228 Temperature Oral (F) 97.6 F 04/18/2018 2.16.840.1.970229.4.391.11.54314 Heart Rate 63 04/18/2018 2.16.840.1.536123.4.391.11.03571 Diastolic (mm Hg) 42 04/18/2018 2.16.840.1.268720.4.391.11.80166 Systolic (mm Hg) 141 04/18/2018 2.16.840.1.178543.4.391.11.45961 Weight 131.1 03/04/2018 2.16.840.1.775895.4.391.11.26899 Height 59.6 03/04/2018 2.16.840.1.114902.4.391.11.06971 Temperature Oral (F) 97.6 F 03/04/2018 2.16.840.1.085246.4.391.11.74963 Heart Rate 56 03/04/2018 2.16.840.1.520941.4.391.11.32056 Diastolic (mm Hg) 39 03/04/2018 2.16.840.1.609758.4.391.11.68692 Systolic (mm Hg) 134 03/04/2018 2.16.840.1.174594.4.391.11.69466 Weight 130.4 01/08/2018 2.16.840.1.420538.4.391.11.61126 Height 59.6 01/08/2018 2.16.840.1.489464.4.391.11.17759 Temperature Oral (F) 98.5 F 01/08/2018 2.16.840.1.027988.4.391.11.41873 Heart Rate 53 01/08/2018 2.16.840.1.954809.4.391.11.57895 Diastolic (mm Hg) 42 01/08/2018 2.16.840.1.990157.4.391.11.75600 Systolic (mm Hg) 142 01/08/2018 2.16.840.1.611862.4.391.11.95425 Weight 133.9 12/19/2017 2.16.840.1.738177.4.391.11.15172 Height 59.6 12/19/2017 2.16.840.1.639615.4.391.11.88110 Temperature Oral (F) 97.6 F 12/19/2017 2.16.840.1.753518.4.391.11.73164 Heart Rate 66 12/19/2017 2.16.840.1.081980.4.391.11.03185 Diastolic (mm Hg) 44 12/19/2017 2.16.840.1.297624.4.391.11.21970 Systolic (mm Hg) 126 12/19/2017 2.16.840.1.676009.4.391.11.18910 Weight 133.9 11/21/2017 2.16.840.1.935073.4.391.11.89506 Height 59.6 11/21/2017 2.16.840.1.866058.4.391.11.13422 Temperature Oral (F) 97.5 F 11/21/2017 2.16.840.1.185499.4.391.11.19637 Heart Rate 66 11/21/2017 2.16.840.1.542491.4.391.11.22891 Diastolic (mm Hg) 37 11/21/2017 2.16.840.1.786028.4.391.11.85949 Systolic (mm Hg) 143 11/21/2017 2.16.840.1.905624.4.391.11.95902 Weight 129.3 09/05/2017 2.16.840.1.394687.4.391.11.30822 Height 59.6 09/05/2017 2.16.840.1.951918.4.391.11.38311 Temperature Oral (F) 97.7 F 09/05/2017 2.16.840.1.002143.4.391.11.13526 Heart Rate 63 09/05/2017 2.16.840.1.881616.4.391.11.14756 Diastolic (mm Hg) 70 09/05/2017 2.16.840.1.656423.4.391.11.08365 Systolic (mm Hg) 130 09/05/2017 2.16.840.1.210434.4.391.11.75934 Weight 128.8 08/23/2017 2.16.840.1.819050.4.391.11.93482 Height 59.6 08/23/2017 2.16.840.1.706593.4.391.11.19346 Temperature Oral (F) 98.1 F 08/23/2017 2.16.840.1.424377.4.391.11.08307 Heart Rate 59 08/23/2017 2.16.840.1.941381.4.391.11.56155 Diastolic (mm Hg) 49 08/23/2017 2.16.840.1.030788.4.391.11.67809 Systolic (mm Hg) 152 08/23/2017 2.16.840.1.299779.4.391.11.78428 Weight 127.7 08/06/2017 2.16.840.1.479706.4.391.11.52309 Height 59.6 08/06/2017 2.16.840.1.029429.4.391.11.12434 Temperature Oral (F) 97.7 F 08/06/2017 2.16.840.1.942829.4.391.11.99272 Heart Rate 68 08/06/2017 2.16.840.1.553763.4.391.11.70105 Diastolic (mm Hg) 49 08/06/2017 2.16.840.1.904619.4.391.11.44545 Systolic (mm Hg) 142 08/06/2017 2.16.840.1.656337.4.391.11.18450 Weight 128.0 06/26/2017 2.16.840.1.276479.4.391.11.26604 Height 59.6 06/26/2017 2.16.840.1.617571.4.391.11.29538 Temperature Oral (F) 98.1 F 06/26/2017 2.16.840.1.836776.4.391.11.19186 Heart Rate 62 06/26/2017 2.16.840.1.668061.4.391.11.03454 Diastolic (mm Hg) 39 06/26/2017 2.16.840.1.468790.4.391.11.92530 Systolic (mm Hg) 124 06/26/2017 2.16.840.1.341559.4.391.11.53259 Weight 131 04/18/2017 2.16.840.1.049230.4.391.11.47339 Height 59.6 04/18/2017 2.16.840.1.066765.4.391.11.65163 Temperature Oral (F) 98.1 F 04/18/2017 2.16.840.1.058283.4.391.11.66943 Heart Rate 50 04/18/2017 2.16.840.1.002255.4.391.11.68775 Diastolic (mm Hg) 30 04/18/2017 2.16.840.1.517419.4.391.11.27545 Systolic (mm Hg) 114 04/18/2017 2.16.840.1.718155.4.391.11.44545 Weight 133.7 03/20/2017 2.16.840.1.551055.4.391.11.04182 Height 59.6 03/20/2017 2.16.840.1.811728.4.391.11.23798 Temperature Oral (F) 98.2 F 03/20/2017 2.16.840.1.016167.4.391.11.23815 Heart Rate 65 03/20/2017 2.16.840.1.245868.4.391.11.60961 Diastolic (mm Hg) 40 03/20/2017 2.16.840.1.835204.4.391.11.62243 Systolic (mm Hg) 128 03/20/2017 2.16.840.1.880773.4.391.11.89222 Weight 131.2 02/27/2017 2.16.840.1.247777.4.391.11.05561 Height 59.6 02/27/2017 2.16.840.1.652462.4.391.11.27496 Temperature Oral (F) 98.2 F 02/27/2017 2.16.840.1.940409.4.391.11.54548 Heart Rate 65 02/27/2017 2.16.840.1.043269.4.391.11.24285 Diastolic (mm Hg) 43 02/27/2017 2.16.840.1.009555.4.391.11.59890 Systolic (mm Hg) 132 02/27/2017 2.16.840.1.936007.4.391.11.51955 Weight 130.0 01/10/2017 2.16.840.1.371148.4.391.11.88371 Height 59.6 01/10/2017 2.16.840.1.649858.4.391.11.91908 Temperature Oral (F) 98.1 F 01/10/2017 2.16.840.1.287807.4.391.11.02251 Heart Rate 58 01/10/2017 2.16.840.1.800882.4.391.11.40582 Diastolic (mm Hg) 36 01/10/2017 2.16.840.1.857316.4.391.11.50143 Systolic (mm Hg) 133 01/10/2017 2.16.840.1.040172.4.391.11.64987 Weight 129.0 12/21/2016 2.16.840.1.873937.4.391.11.99575 Height 59.6 12/21/2016 2.16.840.1.174471.4.391.11.27371 Temperature Oral (F) 97.7 F 12/21/2016 2.16.840.1.069004.4.391.11.15880 Heart Rate 58 12/21/2016 2.16.840.1.357609.4.391.11.94500 Diastolic (mm Hg) 43 12/21/2016 2.16.840.1.293199.4.391.11.63053 Systolic (mm Hg) 140 12/21/2016 2.16.840.1.687556.4.391.11.72589 Weight 127.6 12/04/2016 2.16.840.1.200810.4.391.11.11586 Height 59.6 12/04/2016 2.16.840.1.947899.4.391.11.19983 Temperature Oral (F) 97.7 F 12/04/2016 2.16.840.1.152223.4.391.11.55306 Heart Rate 80 12/04/2016 2.16.840.1.383402.4.391.11.78982 Systolic (mm Hg) 193 12/04/2016 2.16.840.1.050551.4.391.11.55536 Weight 125.9 11/07/2016 2.16.840.1.377069.4.391.11.02810 Height 59.6 11/07/2016 2.16.840.1.275157.4.391.11.71315 Temperature Oral (F) 98.0 F 11/07/2016 2.16.840.1.986678.4.391.11.15584 Heart Rate 72 11/07/2016 2.16.840.1.911750.4.391.11.79297 Diastolic (mm Hg) 70 11/07/2016 2.16.840.1.964800.4.391.11.44320 Systolic (mm Hg) 156 11/07/2016 2.16.840.1.468049.4.391.11.66700 Weight 128.0 10/02/2016 2.16.840.1.995251.4.391.11.40868 Height 59.6 10/02/2016 2.16.840.1.992047.4.391.11.42897 Temperature Oral (F) 98.1 F 10/02/2016 2.16.840.1.158067.4.391.11.53015 Heart Rate 67 10/02/2016 2.16.840.1.187335.4.391.11.90289 Diastolic (mm Hg) 42 10/02/2016 2.16.840.1.764512.4.391.11.77559 Systolic (mm Hg) 133 10/02/2016 2.16.840.1.886335.4.391.11.12690 Weight 121.0 07/19/2016 2.16.840.1.160992.4.391.11.75119 Height 59.6 07/19/2016 2.16.840.1.764626.4.391.11.37915 Temperature Oral (F) 97.8 F 07/19/2016 2.16.840.1.140528.4.391.11.86809 Heart Rate 70 07/19/2016 2.16.840.1.769182.4.391.11.29911 Diastolic (mm Hg) 50 07/19/2016 2.16.840.1.109454.4.391.11.90628 Systolic (mm Hg) 136 07/19/2016 2.16.840.1.315164.4.391.11.43847 Weight 122.9 06/19/2016 2.16.840.1.854363.4.391.11.42373 Height 59.6 06/19/2016 2.16.840.1.896472.4.391.11.88982 Temperature Oral (F) 97.4 F 06/19/2016 2.16.840.1.877643.4.391.11.72573 Heart Rate 63 06/19/2016 2.16.840.1.029708.4.391.11.81283 Diastolic (mm Hg) 60 06/19/2016 2.16.840.1.569674.4.391.11.24691 Systolic (mm Hg) 1560 06/19/2016 2.16.840.1.735184.4.391.11.06095 Weight 125.8 06/01/2016 2.16.840.1.941969.4.391.11.46601 Height 59.6 06/01/2016 2.16.840.1.492651.4.391..61749 Temperature Oral (F) 98.1 F 06/01/2016 2.16.840.1.463474.4.391.11.98915 Heart Rate 66 06/01/2016 2.16.840.1.427278.4.391..07125 Diastolic (mm Hg) 40 06/01/2016 2.16.840.1.949760.4.391..50850 Systolic (mm Hg) 137 06/01/2016 2.16.840.1.021805.4.391..04793 Respitory Rate 16 05/29/2016 [facility] Systolic (mm Hg) 191 05/29/2016 [facility] Diastolic (mm Hg) 70 05/29/2016 [facility] Heart Rate 71 05/29/2016 [facility] Temperature Oral (F) 97.8 F 05/29/2016 [facility] Systolic (mm Hg) 185 05/29/2016 [facility] Diastolic (mm Hg) 69 05/29/2016 [facility] Respitory Rate 18 05/29/2016 [facility] Heart Rate 75 05/29/2016 [facility] Temperature Oral (F) 98.5 F 05/29/2016 [facility] Temperature Oral (F) 97 F 05/29/2016 [facility] Heart Rate 70 05/29/2016 [facility] Respitory Rate 18 05/29/2016 [facility] Systolic (mm Hg) 162 05/29/2016 [facility] Diastolic (mm Hg) 67 05/29/2016 [facility] Height 152.4 cm 05/26/2016 [facility] Weight 60.682 05/26/2016 [facility] BMI Calculated 26.13 05/26/2016 [facility] Weight 125.0 05/17/2016 2.16.840.1.980725.4.391..40980 Height 59.6 05/17/2016 2.16.840.1.834955.4.391..63091 Temperature Oral (F) 98.0 F 05/17/2016 2.16.840.1.835353.4.391..48107 Heart Rate 70 05/17/2016 2.16.840.1.983320.4.391.11.11374 Diastolic (mm Hg) 39 05/17/2016 2.16.840.1.139322.4.391.11.23619 Systolic (mm Hg) 137 05/17/2016 2.16.840.1.522516.4.391.11.26736 Weight 126 11/30/2015 2.16.840.1.704630.4.391.11.30410 Height 59.6 11/30/2015 2.16.840.1.728691.4.391.11.97331 Temperature Oral (F) 98.1 F 11/30/2015 2.16.840.1.111869.4.391.11.19367 Heart Rate 61 11/30/2015 2.16.840.1.159391.4.391.11.48569 Diastolic (mm Hg) 34 11/30/2015 2.16.840.1.879818.4.391.11.88144 Systolic (mm Hg) 105 11/30/2015 2.16.840.1.574545.4.391.11.17563 Weight 123 2015 2.16.840.1.583661.4.391.11.92060 Height 59.2 2015 2.16.840.1.595290.4.391.11.19070 Temperature Oral (F) 97.8 F 2015 2.16.840.1.720259.4.391.11.25263 Heart Rate 61 2015 2.16.840.1.921798.4.391.11.23218 Diastolic (mm Hg) 40 2015 2.16.840.1.701278.4.391.11.96656 Systolic (mm Hg) 122 2015 2.16.840.1.794444.4.391.11.50652 Weight 123.1 09/21/2015 2.16.840.1.425014.4.391.11.88097 Height 59.2 09/21/2015 2.16.840.1.363829.4.391.11.56898 Temperature Oral (F) 97.8 F 09/21/2015 2.16.840.1.845967.4.391.11.65633 Heart Rate 60 09/21/2015 2.16.840.1.658415.4.391.11.76322 Diastolic (mm Hg) 36 09/21/2015 2.16.840.1.131927.4.391.11.62953 Systolic (mm Hg) 118 09/21/2015 2.16.840.1.347393.4.391.11.55767 Weight 126.4 08/26/2015 2.16.840.1.835489.4.391.11.32821 Height 59.2 08/26/2015 2.16.840.1.516567.4.391.11.33707 Temperature Oral (F) 98.0 F 08/26/2015 2.16.840.1.983335.4.391.11.47278 Heart Rate 74 08/26/2015 2.16.840.1.767242.4.391.11.72151 Diastolic (mm Hg) 36 08/26/2015 2.16.840.1.477093.4.391.11.92153 Systolic (mm Hg) 145 08/26/2015 2.16.840.1.206418.4.391.11.22530 Weight 123.6 08/09/2015 2.16.840.1.984464.4.391.11.28057 Height 59.2 08/09/2015 2.16.840.1.602941.4.391.11.19440 Temperature Oral (F) 98.2 F 08/09/2015 2.16.840.1.351493.4.391.11.94844 Heart Rate 60 08/09/2015 2.16.840.1.220784.4.391.11.77010 Diastolic (mm Hg) 28 08/09/2015 2.16.840.1.020814.4.391.11.22343 Systolic (mm Hg) 130 08/09/2015 2.16.840.1.491911.4.391.11.95176 Weight 125.3 04/05/2015 2.16.840.1.588411.4.391.11.96930 Height 59.2 04/05/2015 2.16.840.1.558276.4.391.11.76789 Temperature Oral (F) 97.6 F 04/05/2015 2.16.840.1.134318.4.391.11.90438 Heart Rate 58 04/05/2015 2.16.840.1.424708.4.391.11.46137 Diastolic (mm Hg) 30 04/05/2015 2.16.840.1.270884.4.391.11.56520 Systolic (mm Hg) 109 04/05/2015 2.16.840.1.365311.4.391.11.25892 Heart Rate 87 03/31/2012 [facility] Temperature Oral (F) 97.9 F 03/31/2012 [facility] Respitory Rate 16 03/31/2012 [facility] Diastolic (mm Hg) 74 03/31/2012 [facility] Systolic (mm Hg) 149 03/31/2012 [facility] Temperature Oral (F) 98.2 F 03/31/2012 [facility] Diastolic (mm Hg) 71 03/31/2012 [facility] Systolic (mm Hg) 156 03/31/2012 [facility] Respitory Rate 16 03/31/2012 [facility] Heart Rate 93 03/31/2012 [facility] Diastolic (mm Hg) 63 03/31/2012 [facility] Temperature Oral (F) 98.2 F 03/31/2012 [facility] Respitory Rate 18 03/31/2012 [facility] Heart Rate 80 03/31/2012 [facility] Systolic (mm Hg) 148 03/31/2012 [facility] Height 152.40 cm 03/31/2012 [facility] Weight 59.091 03/30/2012 [facility] Height 165.10 cm 03/30/2012 [facility] Encounters Location Location Details Encounter Type Encounter Number Reason For Visit Attending Provider ADM Date DC Date Status Source [facility] Inpatient [id number] HYPONATREMIA, HYPOKALEMIA, DIARRHEA GOKUL BOTELLO 03/30/2012 03/31/2012 Active [facility] Outpatient [id number] Alexey Cruz 02/09/2014 02/10/2014 [facility] Outpatient [id number] Alexey Cruz 02/18/2014 02/19/2014 [facility] black stools,nausea [id number]-arf0-6lc8n11c4rbz 04/27/2014 04/27/2014 2.16.840.1.116110.4.391.11.77004 [facility] black stools,nausea [id number] 04/27/2014 04/27/2014 2.16.840.1.211463.4.391.11.58987 [facility] black stools,nausea 22qw2vd0-9f1e-8094-53aq-x925669jd3o0 04/27/2014 04/27/2014 2.16.840.1.712479.4.391.11.51235 [facility] black stools,nausea [id number]-k17z-z4w6n7t76u8a 04/27/2014 04/27/2014 2.16.840.1.736695.4.391.11.07965 [facility] black stools,nausea k895as92-9w4w-1l4n-8343-50p846b62l41 04/27/2014 04/27/2014 2.16.840.1.449431.4.391.11.40438 [facility] black stools,nausea jooen0x6-70oy-7619-h6v6-90lq4ibl674p 04/27/2014 04/27/2014 2.16.840.1.227276.4.391.11.28635 [facility] black stools,nausea 0c951643-4503-6ata-98tk-7ctr9gy748xk 04/27/2014 04/27/2014 2.16.840.1.935580.4.391.11.56140 [facility] black stools,nausea [id number]-u769bcxh6352 04/27/2014 04/27/2014 2.16.840.1.494615.4.391..24671 [facility] black stools,nausea 4qgz1u57-ck46-3r06-od90-6xua2lj32dw0 04/27/2014 04/27/2014 2.16.840.1.401736.4.391.68 [facility] black stools,nausea 34122p11-vk6t-5ouw-dw48-ye1i8185l828 04/27/2014 04/27/2014 2.16.840.1.321778.4.391.68 [facility] black stools,nausea o4qs6815-9r09-39t1-sg33-1294536yurn5 04/27/2014 04/27/2014 2.16.840.1.070024.4.391.68 [facility] black stools,nausea nv1x0l41-88cr-253b-8395-s79375628683 04/27/2014 04/27/2014 2.16.840.1.735278.4.391.68 [facility] black stools,nausea r074079e-dl9d-0f63-mu67-658321q704nn 04/27/2014 04/27/2014 2.16.840.1.353430.4.391. [facility] black stools,nausea e576345j-541r-2wf1-e57m-7xu89n49984n 04/27/2014 04/27/2014 2.16.840.1.547268.4.391.68 [facility] black stools,nausea 687aqbsk-01jk-9d462c27-693u-76y81o8o1so2 04/27/2014 04/27/2014 2.16.840.1.260011.4.391.68 [facility] black stools,nausea 8ua85h9m-n51q-8mw2-j991-v0562cl5676a 04/27/2014 04/27/2014 2.16.840.1.920658.4.391.68 [facility] black stools,nausea ozg4f060-5n35-6599-35p0-92pb50023v48 04/27/2014 04/27/2014 2.16.840.1.365546.4.391..44856 [facility] black stools,nausea 536jn622-yu42-865r-3p35-14e9w5u87xeh 04/27/2014 04/27/2014 2.16.840.1.641957.4.391..14228 [facility] black stools,nausea 06ij3vt8-86ae-606s-388w-47q30126eo7k 04/27/2014 04/27/2014 2.16.840.1.839158.4.391.68 [facility] black stools,nausea w65s3b6l-m0u6-0n4u-3at2-04r9342f97w8 04/27/2014 04/27/2014 2.16.840.1.536809.4.391.68 [facility] black stools,nausea 8qy5r9gq-43s5-6p27-q38y-s2758vxeq312 04/27/2014 04/27/2014 2.16.840.1.953177.4.391. [facility] black stools,nausea 5h54p184-1r36-3e6o-2ta2-d99293c452m0 04/27/2014 04/27/2014 2.16.840.1.632165.4.391.68 [facility] black stools,nausea z74oj1h0-xq7d-702o-y704-89oxj22l6l7s 04/27/2014 04/27/2014 2.16.840.1.303917.4.391.68 [facility] black stools,nausea 3g77573h-668g-02y6-x0rq-57n32ss598xf 04/27/2014 04/27/2014 2.16.840.1.935103.4.391.68 [facility] black stools,nausea 324734jk-k346-0i08-s453-61h7l08268rl 04/27/2014 04/27/2014 2.16.840.1.130931.4.391.11.85498 [facility] black stools,nausea 8nk2zei7-9038-6248-li36-x3696t1836f1 04/27/2014 04/27/2014 2.16.840.1.615270.4.391.11.70336 [facility] black stools,nausea 145242t2-6s52-65a9-bms2-7l2wqe6241y2 04/27/2014 04/27/2014 2.16.840.1.454529.4.391.11. [facility] black stools,nausea 263878w3-00nm-6u77-t91q-0w00f82i206l 04/27/2014 04/27/2014 2.16.840.1.857662.4.391..67884 [facility] black stools,nausea 7e2g1w0u-u20m-2l0b-ir72-32e435352995 04/27/2014 04/27/2014 2.16.840.1.691569.4.391.. [facility] black stools,nausea 59g299f8-5634-3975-dz2r-14y6255x7va8 04/27/2014 04/27/2014 2.16.840.1.005607.4.391..64327 [facility] Unknown [id number]-k4bl-7z66-lfi1-up2d9922986e 05/04/2014 05/04/2014 2.16.840.1.031055.4.391.11. [facility] Unknown [id number]-un1i-cd0w9027292p 05/04/2014 05/04/2014 2.16.840.1.752830.4.391.. [facility] Unknown [id number]-vdr8-a1727pv4ph3n 05/04/2014 05/04/2014 2.16.840.1.561673.4.391.11.89021 [facility] Unknown [id number]-9djb-hf0d-65x0hh3m2s85 05/04/2014 05/04/2014 2.16.840.1.909710.4.391.11.08877 [facility] Unknown [id number]-6e3m-2850-0o04-7owx9n6l77vn 05/04/2014 05/04/2014 2.16.840.1.675214.4.391.11.26028 [facility] Unknown [id number]-7815-6os6-bl7k-o6432k303nx8 05/04/2014 05/04/2014 2.16.840.1.698794.4.391.11.06631 [facility] Unknown 510empnr-jx3s-6d7qnx2b-3m2n-b122-4e818k172226 05/04/2014 05/04/2014 2.16.840.1.656019.4.391.11.78850 [facility] Unknown [id number]-dyhq-0151-sd04-ctm0d475fj1v 05/04/2014 05/04/2014 2.16.840.1.070014.4.391.11. [facility] Unknown [id number]-06pw-0n89-kx8c-4w694781u99r 05/04/2014 05/04/2014 2.16.840.1.676777.4.391.11. [facility] Unknown [id number] 05/04/2014 05/04/2014 2.16.840.1.624959.4.391.11. [facility] Unknown [id number]t4g6j6la3d 05/04/2014 05/04/2014 2.16.840.1.453105.4.391.11. [facility] Unknown 3p3o47n0-h78b-2778-p14x-23u3i8hn349m 05/04/2014 05/04/2014 2.16.840.1.302734.4.391.11.64417 [facility] Unknown 86te5h87-8ef4-3ju1-e1ng-54tqv8959gp4 05/04/2014 05/04/2014 2.16.840.1.898154.4.391.11.92057 [facility] Unknown [id number]-j3s4-2a59-rw32-486x5ab0z865 05/04/2014 05/04/2014 2.16.840.1.813088.4.391.11.14324 [facility] Unknown [id number]-[id number] 05/04/2014 05/04/2014 2.16.840.1.924807.4.391.11.27932 [facility] Unknown 1ufrtk20-5832-148b-p0w4-9o8s0jk6378t 05/04/2014 05/04/2014 2.16.840.1.847778.4.391.11.85247 [facility] Unknown 88p8r1g8-w296-803m-z18n-910zl5239i9y 05/04/2014 05/04/2014 2.16.840.1.443548.4.391.11.68149 [facility] Unknown br54dl40-158j-0p5t-mx5i-r79310f71f1c 05/04/2014 05/04/2014 2.16.840.1.111462.4.391.11.65942 [facility] Unknown [id number]-72j5-978t9s9630q2 05/04/2014 05/04/2014 2.16.840.1.687443.4.391.11.48001 [facility] Unknown [id number]-jqww-06v5-v2x7-o3153f73v462 05/04/2014 05/04/2014 2.16.840.1.571955.4.391.11.83649 [facility] Unknown 3l6q2zv3-1m0c-8ih0-914k-734s2r2001p0 05/04/2014 05/04/2014 2.16.840.1.128013.4.391.11.37520 [facility] Unknown gkd7s290-j480-14s0-th7y-h59z2545m615 05/04/2014 05/04/2014 2.16.840.1.439379.4.391.11.48929 [facility] Unknown [id number]-8mxd-1700-[id number] 05/04/2014 05/04/2014 2.16.840.1.281382.4.391..30619 [facility] Unknown [id number]-8rb9-735o-2189-e77er95t2233 05/04/2014 05/04/2014 2.16.840.1.611408.4.391.11.50119 [facility] Unknown q4be17h9-y01e-966z-[id number] 05/04/2014 05/04/2014 2.16.840.1.694991.4.391..79688 [facility] Unknown [id number]-dxt4-0djm-l5x8-8c88700i50w0 05/04/2014 05/04/2014 2.16.840.1.201237.4.391..83228 [facility] Unknown cx094s29-7mz0-484z-b3cw-wy77112231g6 05/04/2014 05/04/2014 2.16.840.1.574671.4.391.11.34147 [facility] Unknown gpd636za-4741-13f2-19pq-[id number] 05/04/2014 05/04/2014 2.16.840.1.358063.4.391.. [facility] Unknown [id number]-zw30-2c2bl1syt81e 05/04/2014 05/04/2014 2.16.840.1.895846.4.391.11.78856 [facility] Unknown 31xh1w60-2fn8-529p-49a3-69o961c35b97 05/04/2014 05/04/2014 2.16.840.1.929551.4.391.11.99006 [facility] Unknown 5q7wn6w8-968a-6u2u-7273-112566i26vrk 05/04/2014 05/04/2014 2.16.840.1.414372.4.391.11.79502 [facility] Unknown 470bda76-0fus-64l7-02t5-9p1if32581y1 05/04/2014 05/04/2014 2.16.840.1.149785.4.391..71426 [facility] Unknown 40kh529r-64c3-392a-897k-1r39z2pyr51a 05/04/2014 05/04/2014 2.16.840.1.998476.4.391.11.88938 [facility] Unknown s0kq75q3-9y4k-1w40-6l75-hx30c81rvv2j 05/04/2014 05/04/2014 2.16.840.1.565994.4.391.. [facility] Unknown t62ko685-xp3y-75q8-9889-443h02b8c788 05/04/2014 05/04/2014 2.16.840.1.827921.4.391.11.15886 [facility] Unknown wz6f84a7-a0pa-2d41-y00f-483o82rj1ri7 05/04/2014 05/04/2014 2.16.840.1.314048.4.391.. [facility] Unknown [id number]-tg12-98d6-t59j-mtsgr54b1f5o 05/04/2014 05/04/2014 2.16.840.1.828926.4.391.11.88588 [facility] Unknown [id number]-66zlu800i125 05/04/2014 05/04/2014 2.16.840.1.915161.4.391.11.40876 [facility] Unknown 590vh5k2-4q73-8tn7-vi3i-kz1kfqmx4051 05/04/2014 05/04/2014 2.16.840.1.553356.4.391.11. [facility] Unknown 5i856d1l-1yv9-21o2-oqo6-t2m80734321v 05/04/2014 05/04/2014 2.16.840.1.778516.4.391.11. [facility] Unknown lj3p45r8-wsiu-5k4k-g75a-2p2ni8brs439 05/04/2014 05/04/2014 2.16.840.1.542301.4.391.11. [facility] Unknown [id number]-ai56-80j0-m2eo-q95g951np89z 05/04/2014 05/04/2014 2.16.840.1.332525.4.391.11. [facility] Unknown [id number]-p17p-pba552140c22 05/04/2014 05/04/2014 2.16.840.1.779816.4.391.11. [facility] Unknown [id number]-uhz3-eqkfldk3122i 05/04/2014 05/04/2014 2.16.840.1.332737.4.391.11. [facility] Unknown [id number]-a16n-[id number] 05/04/2014 05/04/2014 2.16.840.1.360786.4.391.11. [facility] Unknown b46038q1-q146-72xa-v2xo-0l2k0k7wef56 05/04/2014 05/04/2014 2.16.840.1.874935.4.391.11. [facility] Unknown 09v3yovd-1p13-1t2i-2194-48tvm8c36u50 05/04/2014 05/04/2014 2.16.840.1.661011.4.391.11.76470 [facility] Unknown [id number]-6588-7bmh-[id number] 05/04/2014 05/04/2014 2.16.840.1.627800.4.391.11.05464 [facility] Unknown 1syl0a7w-740q-19m6-j068-4cir6g96kw0b 05/04/2014 05/04/2014 2.16.840.1.928402.4.391.11.79328 [facility] Unknown 4f9r36h3-u151-7z99-197z-h06071h11nj1 05/04/2014 05/04/2014 2.16.840.1.125451.4.391.11.72529 [facility] ECHO [id number]-jn55-1d0q-0iik-[id number] 05/05/2014 05/05/2014 2.16.840.1.729315.4.391.11.09011 [facility] ECHO [id number]p2f4ay39292 05/05/2014 05/05/2014 2.16.840.1.556076.4.391.11.65196 [facility] ECHO [id number]-iu9t-943n-9e53-ueq9985821ah 05/05/2014 05/05/2014 2.16.840.1.814649.4.391.11.19376 [facility] ECHO 41pg7i5a-174l-81b1-b778-h7a656z7dd27 05/05/2014 05/05/2014 2.16.840.1.013425.4.391.11.10898 [facility] ECHO 41z78431-92z7-8b7z-5d20-77594ddpvd17 05/05/2014 05/05/2014 2.16.840.1.926513.4.391.11.68364 [facility] ECHO 39x74130-94e5-76cu-877g-lv604ltgq556 05/05/2014 05/05/2014 2.16.840.1.515619.4.391.11.92754 [facility] ECHO 59z64g9c-r868-5793-2o0l-963qqu3rjn11 05/05/2014 05/05/2014 2.16.840.1.578054.4.391.11.41725 [facility] ECHO [id number]-[id number] 05/05/2014 05/05/2014 2.16.840.1.800724.4.391.11.71084 [facility] ECHO [id number]-3gy9-4776-3x05-8mhqu7o9c94d 05/05/2014 05/05/2014 2.16.840.1.280458.4.391.11.15736 [facility] ECHO 57843rj6-x625-2d87-f8lb-i64576rf5968 05/05/2014 05/05/2014 2.16.840.1.911776.4.391.11.87778 [facility] ECHO 31kxbh02-lm1d-07d6-10d8-26e7ni5tjp6v 05/05/2014 05/05/2014 2.16.840.1.035810.4.391.11.57881 [facility] ECHO 9k3z1efo-wn7p-46h1-tcom-k80yx0f8dxu6 05/05/2014 05/05/2014 2.16.840.1.351683.4.391.11.49024 [facility] ECHO t7r6l99n-3114-7a27-0193-s8z2253nh9yv 05/05/2014 05/05/2014 2.16.840.1.371308.4.391.11.82675 [facility] ECHO 967h4ua5-h5d6-30nk-m666-icv900wg8t03 05/05/2014 05/05/2014 2.16.840.1.967432.4.391.11.73516 [facility] ECHO 6zr03q85-036i-91ce-ytd8-22orbi7217iy 05/05/2014 05/05/2014 2.16.840.1.595264.4.391.11.38061 [facility] ECHO 6685b1z1-746n-38c4-3i50-j5pf6bs72047 05/05/2014 05/05/2014 2.16.840.1.344126.4.391.11.90222 [facility] ECHO 269ppnqb-6049-8076-a47o-c7251nvt73fj 05/05/2014 05/05/2014 2.16.840.1.433205.4.391.11.78525 [facility]CHO ymj2kc73-27y8-26v2-s565-w0ud3v1j8835 05/05/2014 05/05/2014 2.16.840.1.742418.4.391.11.77059 [facility] ECHO 90dh84wx-0167-91fx-701l-4o3029w12t23 05/05/2014 05/05/2014 2.16.840.1.695918.4.391.11.36927 [facility] ECHO 76t91xfx-845m-8u91-5330-928v408287o3 05/05/2014 05/05/2014 2.16.840.1.836173.4.391.11.60755 [facility] ECHO 395h6ybb-1i8b-92md-4294-zz0jxq2n97ni 05/05/2014 05/05/2014 2.16.840.1.744406.4.391.11.95482 [facility]CHO h626ka36-2139-2s4x-jn4y-r12w7m45m703 05/05/2014 05/05/2014 2.16.840.1.853396.4.391.11.67018 [facility] ECHO 06469v62-6f56-7rh8-2z45-i74hvofeoo3g 05/05/2014 05/05/2014 2.16.840.1.646793.4.391.11.73755 [facility]CHO 2cvg4214-1z38-407v-81w3-595v3lj399p2 05/05/2014 05/05/2014 2.16.840.1.579641.4.391.11.38578 [facility]CHO 6bab330c-yt99-3275-a5b8-3n75w9tgl14d 05/05/2014 05/05/2014 2.16.840.1.054789.4.391.11.83755 [facility]CHO jyg471r1-z5qy-3f68-3370-8xcjk4ys5lp4 05/05/2014 05/05/2014 2.16.840.1.001421.4.391.11.37073 [facility] ECHO 63944422-12yh-96s5-c52w-4618445qfn68 05/05/2014 05/05/2014 2.16.840.1.929314.4.391.11.56713 [facility] ECHO 8f4n2g92-e1da-6198-21lk-k9ybujp154wr 05/05/2014 05/05/2014 2.16.840.1.748269.4.391.11.49068 [facility]CHO m60j970z-kdk2-77b9-95u5-629k5329tr56 05/05/2014 05/05/2014 2.16.840.1.864868.4.391.11.28950 [facility]CHO 8h62fn2n-ne65-574i-ba45-010ie208y132 05/05/2014 05/05/2014 2.16.840.1.466278.4.391.11.92298 [facility]CHO a9x752eo-n1ys-1l89-72x3-89c0r42207hs 05/05/2014 05/05/2014 2.16.840.1.225762.4.391.11.84215 [facility]CHO 5975p02o-9qhs-6m40-65bo-744le99151r2 05/05/2014 05/05/2014 2.16.840.1.317394.4.391.11.77518 [facility]CHO 3v74381q-t80s-2b41-504d-01y93gl1vw06 05/05/2014 05/05/2014 2.16.840.1.023017.4.391.11.01039 [facility]CHO y4181323-5rzz-2r7f-89h3-0k7222o316p4 05/05/2014 05/05/2014 2.16.840.1.856397.4.391.11.76455 [facility] ECHO 50a4306b-6368-49s3-967h-8uaqrca1p409 05/05/2014 05/05/2014 2.16.840.1.851417.4.391.11.71017 [facility]CHO 331a3089-9234-3q0m-7y33-72d239f0883y 05/05/2014 05/05/2014 2.16.840.1.500090.4.391.11.41782 [facility]CHO 1o9t2813-8352-9zx0-9522-4hk110571nac 05/05/2014 05/05/2014 2.16.840.1.108239.4.391.11.93092 [facility]CHO 4nyla5x0-6r47-3w76-9gjo-j85m3f22rp6w 05/05/2014 05/05/2014 2.16.840.1.578380.4.391.11.97578 [facility] ECHO 30533qs8-71c8-0b44-f9k2-67xcu608w716 05/05/2014 05/05/2014 2.16.840.1.423898.4.391.11. [facility] ECHO e5896kv9-ka08-89y6-fv9s-n97342oku123 05/05/2014 05/05/2014 2.16.840.1.300016.4.391.11.88305 [facility]CHO 4l08dp07-0817-20rf-48iw-y84mu4p12qy3 05/05/2014 05/05/2014 2.16.840.1.383066.4.391.11. [facility]CHO ayc667pv-r738-9115-f594-5d2n3fu66k7k 05/05/2014 05/05/2014 2.16.840.1.695568.4.391.11.98859 [facility] ECHO 5i427690-b73d-703j-3040-wl630034b993 05/05/2014 05/05/2014 2.16.840.1.428017.4.391.11. [facility] ECHO 0f13s1z0-mc15-87p7-z8c8-90ly13g68v63 05/05/2014 05/05/2014 2.16.840.1.198975.4.391.11.73128 [facility]CHO 37t53293-k252-243z-0x97-k6y1480rskt0 05/05/2014 05/05/2014 2.16.840.1.379720.4.391.11. [facility]CHO yd54u063-u7oh-0m68-b316-3f9819k8br34 05/05/2014 05/05/2014 2.16.840.1.237440.4.391.11.70126 [facility]CHO 435c5m1e-911h-6283-511k-uelf5l2fjb58 05/05/2014 05/05/2014 2.16.840.1.379854.4.391.11.46884 [facility]CHO c548r604-02gr-0y86-ih6v-77mo13m678r4 05/05/2014 05/05/2014 2.16.840.1.104333.4.391.11. [facility] ECHO 03lt9z83-n939-8361-il55-865mbooq5v47 05/05/2014 05/05/2014 2.16.840.1.097792.4.391.11.69761 [facility] [employer] 8j9054yx-43b9-2u6k-dv47-7nn6q7i503qp 05/12/2014 05/12/2014 2.16.840.1.179215.4.391.11.92885 [facility] [employer] a1w46689-622y-02j7-rjhq-8ef472b6g2ci 05/12/2014 05/12/2014 2.16.840.1.014198.4.391.11.15324 [facility] [employer] q4cz979h-h85a-2052-a19b-men9n21s3v9l 05/12/2014 05/12/2014 2.16.840.1.094995.4.391..40281 [facility] [employer] pywg83d0-91g2-17c0-546c-i8132v6xa440 05/12/2014 05/12/2014 2.16.840.1.468323.4.391..54759 [facility] [employer] t3455y11-a432-990k-7562-0x7r5719fz4e 05/12/2014 05/12/2014 2.16.840.1.280031.4.391..47313 [facility] [employer] 9uioc70c-6qt6-746f-y4b8-d4r65f8a0774 05/12/2014 05/12/2014 2.16.840.1.908810.4.391..26968 [facility] [employer] 391t653e-2369-0515-94cq-n26mnf977u7n 05/12/2014 05/12/2014 2.16.840.1.866874.4.391..94089 [facility] [employer] f3r01852-ga61-96s6-0t5u-7s093072716j 05/12/2014 05/12/2014 2.16.840.1.403517.4.391.11.46881 [facility] [employer] 6yq95793-z6f8-6056-098u-71hw2289en3d 05/12/2014 05/12/2014 2.16.840.1.012582.4.391.11.89810 [facility] [employer] 7s25z89m-20o6-0964-u743-kmv83k765b6j 05/12/2014 05/12/2014 2.16.840.1.791074.4.391.11.76107 [facility] [employer] 281i780w-7a2t-2790-z50d-7i3w7655qu77 05/12/2014 05/12/2014 2.16.840.1.550130.4.391.11.93127 [facility] [employer] ff4m4423-2593-7155-4074-598yy681p474 05/12/2014 05/12/2014 2.16.840.1.901932.4.391.11.36719 [facility] [employer] n43515s7-4y61-3g70-w369-6792v08c9rtq 05/12/2014 05/12/2014 2.16.840.1.091867.4.391.11.48339 [facility] [employer] 64c48pn0-877k-6659-m37m-818wx5931m64 05/12/2014 05/12/2014 2.16.840.1.774176.4.391.11.95748 [facility] [employer] dm392203-7125-2549-9mt3-048otb0730k9 05/12/2014 05/12/2014 2.16.840.1.830084.4.391.11.99627 [facility] [employer] 5b89s599-5aw8-2y25-u683-r5ute69q562v 05/12/2014 05/12/2014 2.16.840.1.621032.4.391.11.06891 [facility] [employer] lw228772-0j7c-161j-hf00-24h3221i7o7x 05/12/2014 05/12/2014 2.16.840.1.290474.4.391.11.38174 [facility] [employer] 86u97000-e57w-748k-s802-2q6y21w816a9 05/12/2014 05/12/2014 2.16.840.1.339112.4.391.11.81872 [facility] [employer] 13f3935c-dla3-6472-9209-2648c3jx6zom 05/12/2014 05/12/2014 2.16.840.1.514621.4.391.11.80710 [facility] [employer] m3b104gn-z857-38kv-f686-v779as13k3a6 05/12/2014 05/12/2014 2.16.840.1.111540.4.391.11.91334 [facility] [employer] aag6cpl4-63x3-8v10-bzvi-3cssi01x015l 05/12/2014 05/12/2014 2.16.840.1.962073.4.391.11.64946 [facility] [employer] vxxue432-50u8-02t7-t226-qy0783440026 05/12/2014 05/12/2014 2.16.840.1.943764.4.391.11.02783 [facility] [employer] x3q7s2o5-93r3-1la4-2646-8h83m02i1548 05/12/2014 05/12/2014 2.16.840.1.429935.4.391.11.59088 [facility] [employer] 39k32461-j358-1124-t65u-yte3pimpuu57 05/12/2014 05/12/2014 2.16.840.1.833264.4.391.11.04525 [facility] [employer] 7212j78k-o819-1799-eus2-n18c5z6et8ka 05/12/2014 05/12/2014 2.16.840.1.910008.4.391.11.66916 [facility] [employer] zq01iogg-6ojr-2r7g-402l-674270m926k5 05/12/2014 05/12/2014 2.16.840.1.518388.4.391.11.64552 [facility] [employer] 8y519y4m-7887-2144-yimt-574b753533y1 05/12/2014 05/12/2014 2.16.840.1.356336.4.391.11.95160 [facility] [employer] f389saor-58ev-9606-8281-t67401hu3c11 05/12/2014 05/12/2014 2.16.840.1.709420.4.391.11.41391 [facility] [employer] g59m22ge-jj92-44e5-07o6-b18n85749t1v 05/12/2014 05/12/2014 2.16.840.1.057171.4.391.68 [facility] [employer] 9c57ji54-c79b-99k4-83z4-w6c604j699n7 05/12/2014 05/12/2014 2.16.840.1.670901.4.391.11.53336 [facility] [employer] 73b6fat9-8clu-1d27-fdnf-248g405a3d05 05/12/2014 05/12/2014 2.16.840.1.416031.4.391..83746 [facility] [employer] 7s71593z-9571-0ya5-07r0-f70415x4893n 05/12/2014 05/12/2014 2.16.840.1.860150.4.391..25667 [facility] [employer] c7485vlq-348o-3358-g22d-916533560236 05/12/2014 05/12/2014 2.16.840.1.290503.4.391. [facility] [employer] ahr9871u-7j08-915v-q124-03lwbpuw3254 05/12/2014 05/12/2014 2.16.840.1.107028.4.391.11.39506 [facility] [employer] 69hrx7h5-2481-083f-72n3-o74326f810f7 05/12/2014 05/12/2014 2.16.840.1.510185.4.391.11.13390 [facility] [employer] 45281sn5-xrfz-3c0q-p97b-79l3r41q0791 05/12/2014 05/12/2014 2.16.840.1.940712.4.391.11.78211 [facility] [employer] 8f620735-96j0-7410-6b4k-24gpx7742sc5 05/12/2014 05/12/2014 2.16.840.1.334526.4.391.11.54299 [facility] [employer] 41426130-8332-7m17-730d-1kb60r98c507 05/12/2014 05/12/2014 2.16.840.1.277539.4.391.11.14532 [facility] [employer] 13ac9hli-4c3l-7937-f664-2546t3o61865 05/12/2014 05/12/2014 2.16.840.1.803093.4.391.11.90316 [facility] [employer] 1g6j04wm-o68y-22e3-i085-60b4g07hdgx0 05/12/2014 05/12/2014 2.16.840.1.166068.4.391.11.99116 [facility] [employer] 22r21c56-n166-4z3b-xw29-7fi1d767y716 05/12/2014 05/12/2014 2.16.840.1.974793.4.391.11.35887 [facility] [employer] l86lj203-5h6h-1s5q-0d2a-404x6739s56l 05/12/2014 05/12/2014 2.16.840.1.301519.4.391.11.97968 [facility] [employer] j5w16s85-6lzy-95a6-8fg1-p5526yu56t72 05/12/2014 05/12/2014 2.16.840.1.974811.4.391.11.45542 [facility] [employer] 1233s755-4547-6tb9-782x-g5343b4715l8 05/12/2014 05/12/2014 2.16.840.1.839775.4.391.11.23070 [facility] [employer] wd57r34j-1a9q-5k0k-i450-lf1hy2t34674 05/12/2014 05/12/2014 2.16.840.1.035389.4.391.11.28451 [facility] [employer] edi8y3ry-u620-18k1-q761-xoq4519s981y 05/12/2014 05/12/2014 2.16.840.1.751647.4.391.11.40942 [facility] [employer] j27n7l2q-i432-9467-i8c4-n282zwsl8e6i 05/12/2014 05/12/2014 2.16.840.1.090262.4.391.11.93103 [facility] [employer] 0ctij4ku-x25e-9f94-c747-od01613vo1c6 05/12/2014 05/12/2014 2.16.840.1.169758.4.391.11.46669 [facility] [employer] g3bc4wx1-r401-19t5-vkg0-79650q073xs5 05/12/2014 05/12/2014 2.16.840.1.475438.4.391.11.87025 [facility] Unknown 74421beh-q270-3052-j1l9-449y28z5l2oe 05/20/2014 05/20/2014 2.16.840.1.478384.4.391.11.30357 [facility] Unknown 98d873ud-dvsh-809q-thy4-r2q3761605kg 05/20/2014 05/20/2014 2.16.840.1.628946.4.391.11.97060 [facility] Unknown m0kj27a9-vgl9-1175-n672-vk6099r58404 05/20/2014 05/20/2014 2.16.840.1.417822.4.391.11.17699 [facility] Unknown 003961tp-0420-18d8-jmrb-17985896k31u 05/20/2014 05/20/2014 2.16.840.1.114790.4.391.11.24922 [facility] Unknown cm0224n6-31e2-0078-h368-16is7g419cuu 05/20/2014 05/20/2014 2.16.840.1.464319.4.391.11.33451 [facility] Unknown wd1724pe-m0mb-3e5l-p94x-011w2cx5983r 05/20/2014 05/20/2014 2.16.840.1.495834.4.391.11. [facility] Unknown wn283bjd-7g9y-6665-j495-982fn982873i 05/20/2014 05/20/2014 2.16.840.1.462243.4.391.11.15551 [facility] Unknown c7n523od-l9il-2275-c937-85z2rlx618k9 05/20/2014 05/20/2014 2.16.840.1.238563.4.391.11. [facility] Unknown 5r7sk6r5-3279-3i1d-x905-sv567n728026 05/20/2014 05/20/2014 2.16.840.1.340659.4.391.11.96707 [facility] Unknown 3m064438-w21o-7ewd-0s6d-6yk39n26183w 05/20/2014 05/20/2014 2.16.840.1.280375.4.391.11. [facility] Unknown ke476f95-o4u0-4t76-5610-249251s69g81 05/20/2014 05/20/2014 2.16.840.1.531899.4.391.11. [facility] Unknown yczf1257-089s-6400-72p9-31bp4vb4w716 05/20/2014 05/20/2014 2.16.840.1.289092.4.391.11.72704 [facility] Unknown 08500ha5-m10a-7kva-161t-029m18p9gg54 05/20/2014 05/20/2014 2.16.840.1.535103.4.391.11.16988 [facility] Unknown a2329zw5-6600-7902-10b3-408b6k46w2u0 05/20/2014 05/20/2014 2.16.840.1.663789.4.391.11.63923 [facility] Unknown cgw1280y-h935-5j3q-9vd6-e0b73qw2m1zh 05/20/2014 05/20/2014 2.16.840.1.345727.4.391.11.71834 [facility] Unknown z7j35h13-xc02-7gy8-246j-270xaijdfa92 05/20/2014 05/20/2014 2.16.840.1.977314.4.391.11.53983 [facility] Unknown 70y9e545-585o-5591-69u4-18716j66n8xf 05/20/2014 05/20/2014 2.16.840.1.791015.4.391.11.29832 [facility] Unknown a3764rbg-vo70-928w-5t8n-237azln0l360 05/20/2014 05/20/2014 2.16.840.1.967653.4.391.11.88578 [facility] Unknown 2fi3w29q-x3ba-21u2-4582-0xkw2l4mk988 05/20/2014 05/20/2014 2.16.840.1.972169.4.391.11.97953 [facility] Unknown [id number]-9qu8-45bh-1y2x-q70kb3907538 05/20/2014 05/20/2014 2.16.840.1.042502.4.391.11.56398 [facility] Unknown 5d31569s-ej39-36o1-w98b-0q9227p48dun 05/20/2014 05/20/2014 2.16.840.1.724059.4.391.11.87201 [facility] Unknown 268o7f39-1048-08c2-104r-3l49qv5k1328 05/20/2014 05/20/2014 2.16.840.1.970001.4.391.11.55363 [facility] Unknown 9128un9l-6653-04rj-3720-2w8h83629lb1 05/20/2014 05/20/2014 2.16.840.1.254908.4.391.11.53401 [facility] Unknown o6j5k824-075g-8dg7-s63o-37316n5spq8k 05/20/2014 05/20/2014 2.16.840.1.788498.4.391.11.62936 [facility] Unknown 19j0ad18-e843-85g8-ea0t-599r929t715y 05/20/2014 05/20/2014 2.16.840.1.580780.4.391.11.65109 [facility] Unknown o4sv095o-9d33-9c01-k435-zin304fxk691 05/20/2014 05/20/2014 2.16.840.1.306892.4.391.11.61399 [facility] Unknown iab37zt7-4274-8899-1872-0hivm3983659 05/20/2014 05/20/2014 2.16.840.1.158386.4.391.11.77547 [facility] Unknown 02yf1zj2-2593-1kfs-4d0n-9o499o12270a 05/20/2014 05/20/2014 2.16.840.1.827345.4.391.11. [facility] Unknown 5cv947il-9029-8d11-t919-n155232s7671 05/20/2014 05/20/2014 2.16.840.1.708846.4.391.11. [facility] Unknown 738of2mj-j784-969v-d063-e1260q4q8d5g 05/20/2014 05/20/2014 2.16.840.1.106144.4.391.11.40286 [facility] Unknown 4dep1v0x-8qm3-75uw-50w7-68g25b7op540 05/20/2014 05/20/2014 2.16.840.1.944842.4.391.11.68621 [facility] Unknown c5u148w5-1398-8983-3609-vb614ir135vj 05/20/2014 05/20/2014 2.16.840.1.796349.4.391.11.47785 [facility] Unknown eb9391u4-2x7w-45oj-ld19-21i497n6t7lv 05/20/2014 05/20/2014 2.16.840.1.917849.4.391.11.69991 [facility] Unknown ehpt5nbk-s014-63qu-r0a7-od34i745510x 05/20/2014 05/20/2014 2.16.840.1.990359.4.391.11.31756 [facility] Unknown [id number]-52f1-nk57-5907m85341s4 05/20/2014 05/20/2014 2.16.840.1.376602.4.391.11.95813 [facility] Unknown ux235q54-560a-97ji-ft0s-5gw388wy1104 05/20/2014 05/20/2014 2.16.840.1.043167.4.391.11.21472 [facility] Unknown [id number]-s340-58t8-0764-04l65k8azhoe 05/20/2014 05/20/2014 2.16.840.1.152063.4.391.11.36714 [facility] Unknown 1t73h912-04p0-20bi-od9i-44196v1y9979 05/20/2014 05/20/2014 2.16.840.1.030722.4.391.11.39652 [facility] Unknown 8w4dk98f-xv0q-0w72-z1eg-4g51465e9n17 05/20/2014 05/20/2014 2.16.840.1.174665.4.391.11.66138 [facility] Unknown 4w7np4r0-h31j-5b75-7a59-5zd5l7681j17 05/20/2014 05/20/2014 2.16.840.1.747958.4.391.11.79330 [facility] Unknown 3noe3de5-5zr0-2t2s-tms7-5j02z0559h46 05/20/2014 05/20/2014 2.16.840.1.631834.4.391.11.08180 [facility] Unknown [id number]-p211-822p-qx18-223lde122661 05/20/2014 05/20/2014 2.16.840.1.909677.4.391.11.54448 [facility] Unknown 195sxss3-8355-8u53-5c84-99264y25y125 05/20/2014 05/20/2014 2.16.840.1.900163.4.391.11.50468 [facility] Unknown 4k730v5e-q59a-300k-205v-0b1d0gi997ge 05/20/2014 05/20/2014 2.16.840.1.763139.4.391.11.74878 [facility] Unknown a2qo0w0p-9tl8-9210-0517-q81xk211076j 05/20/2014 05/20/2014 2.16.840.1.769672.4.391.11. [facility] Unknown h1u9q15s-0676-228m-fn96-41rx5385y3m0 05/20/2014 05/20/2014 2.16.840.1.135051.4.391.11.37332 [facility] Unknown lt469l65-511a-9092-0461-83084y28irwo 05/20/2014 05/20/2014 2.16.840.1.965825.4.391.11.35994 [facility] Unknown [id number] 05/20/2014 05/20/2014 2.16.840.1.547939.4.391.11.07135 [facility] Unknown [id number] 05/20/2014 05/20/2014 2.16.840.1.314388.4.391.11.00784 [facility] Unknown [id number] 05/20/2014 05/20/2014 2.16.840.1.230827.4.391.11.44542 [facility] Unknown [id number]-q62ak8idt952 05/20/2014 05/20/2014 2.16.840.1.303140.4.391.11.97262 [facility] Unknown [id number]-[id number] 05/20/2014 05/20/2014 2.16.840.1.075675.4.391.11.80417 [facility] Unknown [id number]-[id number] 05/20/2014 05/20/2014 2.16.840.1.101356.4.391.11.61203 [facility] Unknown [id number]-[id number] 05/20/2014 05/20/2014 2.16.840.1.031471.4.391.11. [facility] Unknown [id number] 05/20/2014 05/20/2014 2.16.840.1.998644.4.391.11.37299 [facility] Unknown [id number] 05/20/2014 05/20/2014 2.16.840.1.899324.4.391.11.92186 [facility] Unknown [id number]-[id number] 05/20/2014 05/20/2014 2.16.840.1.533237.4.391.11.14979 [facility] Unknown [id number] 05/20/2014 05/20/2014 2.16.840.1.981245.4.391.11.12536 [facility] Unknown [id number]-[id number] 05/20/2014 05/20/2014 2.16.840.1.401555.4.391.11.58114 [facility] Unknown [id number]-[id number]-pglt-[id number] 05/20/2014 05/20/2014 2.16.840.1.247369.4.391.11.72418 [facility] Unknown [id number]-[id number] 05/20/2014 05/20/2014 2.16.840.1.314923.4.391.11. [facility] Unknown [id number]-x56waqv64rk3 05/20/2014 05/20/2014 2.16.840.1.774617.4.391.11.88151 [facility] Unknown [id number]-[id number] 05/20/2014 05/20/2014 2.16.840.1.471126.4.391.11. [facility] Unknown [id number]-w9n6-i3b90xw465p7 05/20/2014 05/20/2014 2.16.840.1.040465.4.391.11.91800 [facility] Unknown [id number]-[id number] 05/20/2014 05/20/2014 2.16.840.1.603965.4.391.11.32239 [facility] Unknown [id number]-[id number] 05/20/2014 05/20/2014 2.16.840.1.955794.4.391.11.26402 [facility] Unknown [id number]-[id number] 05/20/2014 05/20/2014 2.16.840.1.630228.4.391.11.97869 [facility] Unknown [id number] 05/20/2014 05/20/2014 2.16.840.1.921714.4.391.11.60778 [facility] Unknown [id number]-[id number]-5xb8pc6d3z3x 05/20/2014 05/20/2014 2.16.840.1.506376.4.391.11.05615 [facility] Unknown [id number] 05/20/2014 05/20/2014 2.16.840.1.328155.4.391.11.17495 [facility] Unknown [id number] 05/20/2014 05/20/2014 2.16.840.1.486108.4.391.11.77873 [facility] Unknown [id number] 05/20/2014 05/20/2014 2.16.840.1.549519.4.391.11.59577 [facility] Unknown [id number] 05/20/2014 05/20/2014 2.16.840.1.712370.4.391.11.56652 [facility] Unknown [id number]-47ef-p46dklu0s170 05/20/2014 05/20/2014 2.16.840.1.144137.4.391.11.43742 [facility] Unknown [id number]-[id number]-7em1724iw7d2 05/20/2014 05/20/2014 2.16.840.1.775366.4.391.11.37078 [facility] Unknown [id number]-v0ch-[id number] 05/20/2014 05/20/2014 2.16.840.1.087459.4.391.11.03341 [facility] Unknown [id number]-650d-k7wy6o4c23px 05/20/2014 05/20/2014 2.16.840.1.171761.4.391.11.61837 [facility] Unknown [id number]-48pd-[id number] 05/20/2014 05/20/2014 2.16.840.1.856602.4.391.11.58036 [facility] Unknown [id number] 05/20/2014 05/20/2014 2.16.840.1.524915.4.391.11.15994 [facility] Unknown [id number]-[id number] 05/20/2014 05/20/2014 2.16.840.1.944187.4.391.11.86404 [facility] Unknown [id number]-k070-[id number] 05/20/2014 05/20/2014 2.16.840.1.988704.4.391.11.45435 [facility] Unknown [id number]-[id number] 05/20/2014 05/20/2014 2.16.840.1.394994.4.391.11.49182 [facility] Unknown [id number]-33cu-c875f00k43o6 05/20/2014 05/20/2014 2.16.840.1.146479.4.391.11.27620 [facility] Unknown [id number] 05/20/2014 05/20/2014 2.16.840.1.701005.4.391.11.63354 [facility] Unknown [id number]-n27i-435m-ety0-506q3jqj16w7 05/20/2014 05/20/2014 2.16.840.1.128302.4.391.11.31858 [facility] Unknown [id number]-[id number] 05/20/2014 05/20/2014 2.16.840.1.331325.4.391.11.07060 [facility] Unknown [id number]-lpo5-211j582t409w 05/20/2014 05/20/2014 2.16.840.1.966024.4.391.11. [facility] Unknown [id number] 05/20/2014 05/20/2014 2.16.840.1.689323.4.391.11.33276 [facility] Unknown [id number]-[id number]-acfc-g37p2apzdf11 05/20/2014 05/20/2014 2.16.840.1.230057.4.391.11. [facility] Unknown [id number] 05/20/2014 05/20/2014 2.16.840.1.079743.4.391.11.23575 [facility] Unknown [id number]-r1ce-[id number] 05/20/2014 05/20/2014 2.16.840.1.915711.4.391.11.59379 [facility] Unknown [id number] 05/20/2014 05/20/2014 2.16.840.1.713492.4.391.11.38138 [facility] Unknown [id number]-d092-30b0-6225-28z59d2i1k0j 05/20/2014 05/20/2014 2.16.840.1.976773.4.391.11.28787 [facility] Unknown [id number]-5t95-5p9l-z1p81qjj276u 05/20/2014 05/20/2014 2.16.840.1.557688.4.391.11.18332 [facility] [employer] [id number] 05/26/2014 05/26/2014 2.16.840.1.046038.4.391.11.47110 [facility] [employer] [id number] 05/26/2014 05/26/2014 2.16.840.1.765898.4.391.11.01178 [facility] [employer] [id number]-[id number] 05/26/2014 05/26/2014 2.16.840.1.242441.4.391.11.27326 [facility] [employer] [id number]-yu1o-9zed72716hqv 05/26/2014 05/26/2014 2.16.840.1.439299.4.391.11.71911 [facility] [employer] [id number]-bx3k-[id number] 05/26/2014 05/26/2014 2.16.840.1.590586.4.391.11.28876 [facility] [employer] [id number]-tznn-[id number] 05/26/2014 05/26/2014 2.16.840.1.880763.4.391.11.40132 [facility] [employer] [id number] 05/26/2014 05/26/2014 2.16.840.1.613686.4.391.11.14986 [facility] [employer] [id number] 05/26/2014 05/26/2014 2.16.840.1.773346.4.391.11.35805 [facility] [employer] [id number]-xotg-[id number]-[id number] 05/26/2014 05/26/2014 2.16.840.1.987744.4.391..44982 [facility] [employer] [id number]-59c6-f893-i71klv4087gw 05/26/2014 05/26/2014 2.16.840.1.689486.4.391..11111 [facility] [employer] 2g9oi5ml-s4gk-9c63-68a4-33kvy7z2n3qi 05/26/2014 05/26/2014 2.16.840.1.959579.4.391.11.68568 [facility] [employer] w8nao0rd-5217-0ma4-4969-y6o2ob04xu31 05/26/2014 05/26/2014 2.16.840.1.544921.4.391.11.74167 [facility] [employer] 4ypx4c66-8z78-70na-cke5-56x039055jks 05/26/2014 05/26/2014 2.16.840.1.192407.4.391.11.70984 [facility] [employer] z7348e50-0987-9w31-8800-a406m70rbid1 05/26/2014 05/26/2014 2.16.840.1.254849.4.391.11.17933 [facility] [employer] wwj6m6u5-824r-3co0-hq1z-vz98a99es852 05/26/2014 05/26/2014 2.16.840.1.995808.4.391.11.64528 [facility] [employer] ua6qgimz-172u-68g0-[id number] 05/26/2014 05/26/2014 2.16.840.1.863987.4.391.11.57390 [facility] [employer] 3vp15603-f5fb-72k9-f497-7e7116lp10n5 05/26/2014 05/26/2014 2.16.840.1.806216.4.391.11.26298 [facility] [employer] sr51d548-16g5-32h7-v509-9840287p7862 05/26/2014 05/26/2014 2.16.840.1.702815.4.391.11.73251 [facility] [employer] m43g3003-f685-9p78-04x8-o2i24h46spaa 05/26/2014 05/26/2014 2.16.840.1.216502.4.391.11.38779 [facility] [employer] [id number]-3r0s-5l16-n3t7-tpdvtf2eh349 05/26/2014 05/26/2014 2.16.840.1.247561.4.391.11.12465 [facility] Unknown [id number]-z5v0-0ikp-22o5-u477v70739o1 05/26/2014 05/26/2014 2.16.840.1.650376.4.391.11.09561 [facility] [id number]-l23b-40be-dc5o-64567wq27ub9 05/26/2014 05/26/2014 2.16.840.1.311709.4.391.11.26833 [facility] c79c223l-22j7-26n5-dz63-3vy88fb98e5n 05/26/2014 05/26/2014 2.16.840.1.246801.4.391.11.87766 [facility] [id number]-rq38-ux9413vp588d 05/26/2014 05/26/2014 2.16.840.1.946842.4.391.11.97324 [facility] [id number]-516x-2tz4-5328-6r1q913x7z5x 05/26/2014 05/26/2014 2.16.840.1.474675.4.391.11.65526 [facility] p2mb506n-7427-6919-383r-14161dhx742q 05/26/2014 05/26/2014 2.16.840.1.598746.4.391.11.54508 [facility] eows703l-3730-8487-58jc-58m7c98o3303 05/26/2014 05/26/2014 2.16.840.1.058703.4.391.11.47278 [facility] oe2y7386-79lx-2rr4-d7xo-48n735lnq515 05/26/2014 05/26/2014 2.16.840.1.463195.4.391.11.76210 [facility] 5a33iphs-jht0-2277-n4vj-h45ser40t147 05/26/2014 05/26/2014 2.16.840.1.519549.4.391.11.42401 [facility] [id number]-gzv5-81qc1102i811 05/26/2014 05/26/2014 2.16.840.1.311544.4.391.11.23451 [facility] Unknown [id number]-moev377879b6 05/26/2014 05/26/2014 2.16.840.1.891233.4.391.11.26767 [facility] Unknown [id number]-8z58-1769-1j6c-72r1435ih413 05/26/2014 05/26/2014 2.16.840.1.254885.4.391.11.42227 [facility] m03a035a-s018-1s19-xtnp-6o3f1i8skf0f 05/26/2014 05/26/2014 2.16.840.1.300623.4.391.11.37837 [facility] Unknown [id number]-91k3-8926-1b97-87dh676ht683 05/26/2014 05/26/2014 2.16.840.1.826678.4.391.11.85432 [facility] Unknown [id number]-y38s-0158-6a09-m2p312j8n292 05/26/2014 05/26/2014 2.16.840.1.868786.4.391.11.62673 [facility] 3n361pwx-wknb-7751-120w-424o3626135x 05/26/2014 05/26/2014 2.16.840.1.499635.4.391.11.03987 [facility] [id number]-1goz-1109-50r56589s6ug 05/26/2014 05/26/2014 2.16.840.1.911670.4.391.11.24037 [facility] Unknown [id number]-[id number] 05/26/2014 05/26/2014 2.16.840.1.289393.4.391.11.55543 [facility] Unknown [id number]-uuds-63p8-w0t6-815320o3593t 05/26/2014 05/26/2014 2.16.840.1.149910.4.391.11.84437 [facility] Unknown [id number]-7uzl-5e79-4360uy8482gr 05/26/2014 05/26/2014 2.16.840.1.038010.4.391.11.99306 [facility] Unknown [id number]-m9e1-21q1-br58-98s7379b4x94 05/26/2014 05/26/2014 2.16.840.1.973885.4.391.11.19991 [facility] xzd488y0-9q75-5e5o-r63l-k4h8252x7472 05/26/2014 05/26/2014 2.16.840.1.150538.4.391.11.15982 [facility] [id number]-vh1z-021v-55gk-rm5b29472597 05/26/2014 05/26/2014 2.16.840.1.953202.4.391.11.07648 [facility] po7440mp-145e-02mt-b9y9-v38zu8hc1l17 05/26/2014 05/26/2014 2.16.840.1.894632.4.391.11.07075 [facility] Unknown [id number]-ske3-7i523m85-m9n4-pr25l102es71 05/26/2014 05/26/2014 2.16.840.1.110064.4.391.11.71890 [facility] [id number]-34x3-71i0-7w39-53135624a1i5 05/26/2014 05/26/2014 2.16.840.1.498679.4.391.11.22141 [facility] Unknown [id number]-qvi7-88ez-883y-plp66r13562n 05/26/2014 05/26/2014 2.16.840.1.381068.4.391.11.01781 [facility] Unknown [id number]-l728-3493-o018-83pl10120438 05/26/2014 05/26/2014 2.16.840.1.778562.4.391.11.07499 [facility] 97r3yzt0-816z-7u96-qe44-ri93j589k82z 05/26/2014 05/26/2014 2.16.840.1.382318.4.391.11.56424 [facility] Unknown 866sxs6s-71f5-53ep-z6h1-tli739hs4wl4 05/26/2014 05/26/2014 2.16.840.1.562968.4.391.11.35578 [facility] Unknown b098zzi2-hfjh-6b11-0vcw-[id number] 05/26/2014 05/26/2014 2.16.840.1.248718.4.391.11.07599 [facility] 1e85c4s7-9nho-375s-27j5-541686xb0364 05/26/2014 05/26/2014 2.16.840.1.981058.4.391.11.78557 [facility] f4h31112-gpt2-7235-03y4-99z5931h89n4 05/26/2014 05/26/2014 2.16.840.1.594391.4.391.11.44436 [facility] 6w16f519-ev4e-5807-e475-308z7e44g98p 05/26/2014 05/26/2014 2.16.840.1.956859.4.391.11.26121 [facility] [id number]-w2qr8267694v 05/26/2014 05/26/2014 2.16.840.1.884910.4.391.11.39264 [facility] Unknown [id number]-u36k-m423409e4dh2 05/26/2014 05/26/2014 2.16.840.1.597915.4.391.11.20033 [facility] g3918n4s-ib61-72xa-1b15-4bo0981946y6 05/26/2014 05/26/2014 2.16.840.1.740660.4.391.11.27473 [facility] Unknown xf99fd5b-p9a3-976o-m8jl-7mi9145e5ag2 05/26/2014 05/26/2014 2.16.840.1.170902.4.391.11.90044 [facility] Unknown [id number] 05/26/2014 05/26/2014 2.16.840.1.372520.4.391.11.44675 [facility] 9536n1j1-9bwg-0k90-u6c0-nz28ho51224j 05/26/2014 05/26/2014 2.16.840.1.638353.4.391.11.15050 [facility] [id number]-c8p1-6h34-x6tm-3451l908y622 05/26/2014 05/26/2014 2.16.840.1.974080.4.391.11.00405 [facility] Unknown 565oe62m-4m04-3230-p8be-5887l95crh05 05/26/2014 05/26/2014 2.16.840.1.835126.4.391.11.48587 [facility] Unknown 01n4f69y-53u3-0be5-2277-1t7r5l8e6v91 05/26/2014 05/26/2014 2.16.840.1.346024.4.391.11.70264 [facility] 6ta0q1a6-577u-8y25-ig9r-q8dyf4921iw5 05/26/2014 05/26/2014 2.16.840.1.267694.4.391.11.47186 [facility] Unknown e0k37gh9-3iu1-17xw-b83y-09039d6f7p9x 05/26/2014 05/26/2014 2.16.840.1.839727.4.391.11.20412 [facility] Unknown [id number]-oz51771t86vq 05/26/2014 05/26/2014 2.16.840.1.728079.4.391.11.25337 [facility] Unknown y3649q72-u2q0-7td0-y1t1-8oy94n6vj3d0 05/26/2014 05/26/2014 2.16.840.1.014625.4.391.11.43841 [facility] Unknown [id number]-r50j-7874-86p5-8u475nb85ku0 05/26/2014 05/26/2014 2.16.840.1.713799.4.391.11.00332 [facility] Unknown hat58636-ni47-4021-26k1-zci9682u378x 05/26/2014 05/26/2014 2.16.840.1.778465.4.391.11.87660 [facility] [id number]-1c8h-qprg-88068k1191w3 05/26/2014 05/26/2014 2.16.840.1.573330.4.391.11.85704 [facility] Unknown x5rw9yh9-621f-705n-8275-40ck55jax7km 05/26/2014 05/26/2014 2.16.840.1.547990.4.391.11.56364 [facility] Unknown [id number]-tisd-1nr5-4646-84bz5fd9199g 05/26/2014 05/26/2014 2.16.840.1.817002.4.391.11.28302 [facility] Unknown 0b5vf825-yx16-6kfk-x315-58m41o7130p8 05/26/2014 05/26/2014 2.16.840.1.378745.4.391.11.86135 [facility] Unknown [id number]-786o-7305-18p7785rwn0m 05/26/2014 05/26/2014 2.16.840.1.962073.4.391.11.01013 [facility] Unknown 0efu3q5p-i97z-9650-tt8t-fhf8bfq4g28o 05/26/2014 05/26/2014 2.16.840.1.578883.4.391.11.98268 [facility] Unknown 5183j943-n08j-268j-no4w-3m8e49601h6e 05/26/2014 05/26/2014 2.16.840.1.727798.4.391.11.31267 [facility] Unknown [id number]-52p1-3a07515ud318 05/26/2014 05/26/2014 2.16.840.1.909414.4.391.11.07272 [facility] 6tqv3x22-rrqb-8ugj-4d0q-quh5uwz29pv0 05/26/2014 05/26/2014 2.16.840.1.360579.4.391.11.38060 [facility] Unknown [id number]-a392v8j59r98 05/26/2014 05/26/2014 2.16.840.1.875030.4.391.11.25010 [facility] Unknown 4s519e57-467p-2z9w-9260-45517p19xu88 05/26/2014 05/26/2014 2.16.840.1.854949.4.391.11.38328 [facility] [employer] 119v74td-4c22-7z24-gyv9-r71k7g10t091 05/26/2014 05/26/2014 2.16.840.1.571154.4.391.11.85200 [facility] [employer] l88r279d-8r83-34r5-0w07-kb80123159o9 05/26/2014 05/26/2014 2.16.840.1.013922.4.391.11.83135 [facility] [employer] [id number]-3r71-f57o-px965q79i3t4 05/26/2014 05/26/2014 2.16.840.1.008750.4.391.11.87948 [facility] [employer] c40157jo-7950-2183-q0jq-7x28j70us6k2 05/26/2014 05/26/2014 2.16.840.1.638022.4.391.11.20023 [facility] [employer] -b955-546e-t68x-o472zm1r0o31 05/26/2014 05/26/2014 2.16.840.1.581152.4.391.11.37213 [facility] [employer] l7p74003-7086-2814-o21s-146334r2207b 05/26/2014 05/26/2014 2.16.840.1.390847.4.391.11.32526 [facility] [employer] bvp8d913-6e85-0796-g6eu-908wbpcldi18 05/26/2014 05/26/2014 2.16.840.1.679811.4.391.11.19196 [facility] [employer] egq94662-l91h-9820-9t46-n585562uz037 05/26/2014 05/26/2014 2.16.840.1.828322.4.391.11.62346 [facility] [employer] 1e0boi24-42x3-87qu-so7x-867t99832kst 05/26/2014 05/26/2014 2.16.840.1.018865.4.391.11.42405 [facility] [employer] 6fe128o5-85w8-61w2-c44t-7vt4y76n3146 05/26/2014 05/26/2014 2.16.840.1.744441.4.391.11.01169 [facility] [employer] p221f1u4-gjjn-0zon-w304-b37t77m715u7 05/26/2014 05/26/2014 2.16.840.1.162051.4.391.11.33768 [facility] [employer] 2qa8g17r-6bw7-5i6f-85r0-9r1k694zmata 05/26/2014 05/26/2014 2.16.840.1.452119.4.391.11.29782 [facility] [employer] [facility] [id number]-55n5-5856-2s2akkad2gc6 05/26/2014 05/26/2014 2.16.840.1.612853.4.391.11.86930 [facility] [employer] [facility] 7u1v406m-7sb9-7z35-8o5f-t639h318cuth 05/26/2014 05/26/2014 2.16.840.1.078550.4.391.11.56463 [facility] [employer] 2763qy11-6xvr-6b25-5m9y-jb5hrtj7u50r 05/26/2014 05/26/2014 2.16.840.1.265039.4.391..35066 [facility] [employer] 698s9g9e-j055-2587-g873-8ld97u08256s 05/26/2014 05/26/2014 2.16.840.1.809158.4.391..19219 [facility] [employer] 33p94354-w8oa-2742-g787-70hx25o1igfn 05/26/2014 05/26/2014 2.16.840.1.068661.4.391..96109 [facility] [employer] lib099z1-0yc3-349k-214a-lug2yg1e4e73 05/26/2014 05/26/2014 2.16.840.1.740826.4.391..02990 [facility] [employer] [facility] [id number]-8q11-5c6u-3rf9b72a3194 05/26/2014 05/26/2014 2.16.840.1.428529.4.391..41339 [facility] [employer] [facility] 1zun7wln-9237-91o0-u0fh-fl7h2et0602f 05/26/2014 05/26/2014 2.16.840.1.062062.4.391..34439 [facility] [employer] [facility] lt83536i-463a-37ym-6473-y37lo463z78t 05/26/2014 05/26/2014 2.16.840.1.056511.4.391.11.90206 [facility] [employer] [facility] 25th0b9o-60l5-1409-1f76-f15xd57295po 05/26/2014 05/26/2014 2.16.840.1.720653.4.391.11.39788 [facility] [employer] [facility] wiss3531-w3fl-1890-218c-13u0525jb3uw 05/26/2014 05/26/2014 2.16.840.1.155212.4.391.11.68876 [facility] [employer] [facility] [id number]-cdx3-2090-1401-9nq8y238540p 05/26/2014 05/26/2014 2.16.840.1.901027.4.391.11.59589 [facility] 1n48jip9-2zoj-579y-01r1-5405x07f7370 05/26/2014 05/26/2014 2.16.840.1.340200.4.391.11.35784 [facility] z9136q8z-g196-4l24-d68s-o58d111202r0 05/26/2014 05/26/2014 2.16.840.1.856903.4.391.11.71927 [facility] [id number]-e0t3-5ut948q28290 05/26/2014 05/26/2014 2.16.840.1.672440.4.391.11.00742 [facility] 5656h0d5-g746-7h15-lh5r-48988hn7t169 05/26/2014 05/26/2014 2.16.840.1.726538.4.391.11.15003 [facility] Unknown 5d6z4484-l255-0724-41vj-w6n5o6s9nuso 05/26/2014 05/26/2014 2.16.840.1.788292.4.391.11.03171 [facility] 4s11a44a-y651-19n5-3133-h0x21h7k30m4 05/26/2014 05/26/2014 2.16.840.1.194097.4.391.11.57760 [facility] 095ulh1j-9817-4469-8t33-2v57nl5713ta 05/26/2014 05/26/2014 2.16.840.1.702317.4.391.11.59763 [facility] 7708g2wp-r035-7531-000v-7c53sk6590tc 05/26/2014 05/26/2014 2.16.840.1.258079.4.391.11.22743 [facility] q118g1d8-n398-039t-n933-al22r751g0vg 05/26/2014 05/26/2014 2.16.840.1.427926.4.391.11.33514 [facility] 26ts71xh-52zb-2f02-vk2o-838317007024 05/26/2014 05/26/2014 2.16.840.1.050738.4.391.11.71977 [facility] ojv14qv5-x718-31xn-t4zv-9h990373ni2j 05/26/2014 05/26/2014 2.16.840.1.719341.4.391.11.00892 [facility] axz069l6-bu49-4x6b-f874-56u6tm6z0y93 05/26/2014 05/26/2014 2.16.840.1.418965.4.391.11.04078 [facility] 108q0899-y209-1804-m795-g55706m133ay 05/26/2014 05/26/2014 2.16.840.1.559487.4.391.11.04364 [facility] 2v86eq5w-1971-2x39-o629-22vv0rh0a8xp 05/26/2014 05/26/2014 2.16.840.1.151830.4.391.11.13780 [facility] Unknown wg215934-14gp-861g-vrnd-g31cwr57811n 05/26/2014 05/26/2014 2.16.840.1.855179.4.391.11.97134 [facility] Unknown 083l2z7h-8204-1ti8-7t5s-4h232o9zk4q4 05/26/2014 05/26/2014 2.16.840.1.483820.4.391.11.85278 [facility] Unknown wm2k4i8o-61d6-3ts8-3m45-6k6655jc2nr2 05/26/2014 05/26/2014 2.16.840.1.715838.4.391.11.70147 [facility] 137x45ov-nzsp-5o0m-j97f-g3xw77692yo5 05/26/2014 05/26/2014 2.16.840.1.736066.4.391.11.68930 [facility] Unknown t798465h-4w00-98f5-ckk7-971c9g7962p6 05/26/2014 05/26/2014 2.16.840.1.123912.4.391.11.50524 [facility] y72b84l0-od58-9o1z-yml2-px81p70q395u 05/26/2014 05/26/2014 2.16.840.1.826977.4.391.11.82881 [facility] Unknown a54hy676-6k03-2541-ojbd-01220075q9l1 05/26/2014 05/26/2014 2.16.840.1.122160.4.391.11. [facility] Unknown er1us502-7874-5d74-m8ub-g281s864e0s0 05/26/2014 05/26/2014 2.16.840.1.419573.4.391.11.36068 [facility] Unknown [id number]-q0q0-95w2-wonh-w56685wsqs28 05/26/2014 05/26/2014 2.16.840.1.054625.4.391.11.22040 [facility] Unknown nfwj5i63-i568-56xc-6316-97y96i223874 05/26/2014 05/26/2014 2.16.840.1.746035.4.391.11.95490 [facility] Unknown t115f47j-319z-28xl-y948-233kx833h72e 05/26/2014 05/26/2014 2.16.840.1.614770.4.391.11.94524 [facility] Unknown -16o3-89s6-i7if-i44bo78v9b79 05/26/2014 05/26/2014 2.16.840.1.643341.4.391.11.48627 [facility] Unknown 7snmwq75-8m64-90ep-nt48-81l6d6i3jjnj 05/26/2014 05/26/2014 2.16.840.1.924604.4.391.11.27522 [facility] 83w437c6-f68k-3032-079h-j9hk7xcx2lz5 05/26/2014 05/26/2014 2.16.840.1.243370.4.391.11.47139 [facility] Unknown 69js694e-610p-1zp9-qwr5-202h31ddgix8 05/26/2014 05/26/2014 2.16.840.1.148672.4.391.11.88770 [facility] Unknown 4hp22275-j555-288c-0645-558q4zd9825y 05/26/2014 05/26/2014 2.16.840.1.379040.4.391.11. [facility] 56dtw818-c5kn-1926-b544-44ds3s8727h9 05/26/2014 05/26/2014 2.16.840.1.412911.4.391.11. [facility] 83io5u09-3039-61jg-a72n-gw4xk268609u 05/26/2014 05/26/2014 2.16.840.1.090761.4.391.11.22445 [facility] Unknown a606fh7x-40z8-859v-v57v-7f481an86z93 05/26/2014 05/26/2014 2.16.840.1.629028.4.391.11.45723 [facility] Unknown qxdh1l49-o315-7542-36q0-1859zb110j5z 05/26/2014 05/26/2014 2.16.840.1.091932.4.391.11.17371 [facility] v377yi1c-55in-348z-c623-70hc0z04v94i 05/26/2014 05/26/2014 2.16.840.1.973729.4.391.11.48416 [facility] Unknown 810hj9g0-u125-5750-2258-ej674w9r1j65 05/26/2014 05/26/2014 2.16.840.1.209677.4.391.11.27849 [facility] Unknown 0s08b457-4c3o-412a-i858-97988412y811 05/26/2014 05/26/2014 2.16.840.1.397189.4.391.11.60185 [facility] Unknown nx51iwyl-s44e-0t43-i7o5-8011136704l0 05/26/2014 05/26/2014 2.16.840.1.088430.4.391.11.56394 [facility] Unknown eq05541k-81a9-69r9-4101-578s9ga36x76 05/26/2014 05/26/2014 2.16.840.1.294942.4.391.11.44619 [facility] Unknown [id number]-[id number] 05/26/2014 05/26/2014 2.16.840.1.650717.4.391.11.54222 [facility] Unknown -[id number]-n05c-[id number] 05/26/2014 05/26/2014 2.16.840.1.378031.4.391.11.20940 [facility] Unknown [id number] 05/26/2014 05/26/2014 2.16.840.1.712410.4.391.11.21245 [facility] Unknown [id number] 05/26/2014 05/26/2014 2.16.840.1.252267.4.391.11.53407 [facility] Unknown [id number]-022m-n4c1b7k9m950 05/26/2014 05/26/2014 2.16.840.1.848809.4.391.11.01081 [facility] Unknown [id number] 05/26/2014 05/26/2014 2.16.840.1.098238.4.391.11.89171 [facility] Unknown [id number]-[id number] 05/26/2014 05/26/2014 2.16.840.1.942504.4.391.11.14919 [facility] Unknown [id number] 05/26/2014 05/26/2014 2.16.840.1.827949.4.391.11.54443 [facility] Unknown [id number] 05/26/2014 05/26/2014 2.16.840.1.364297.4.391.11.32278 [facility] Unknown [id number] 05/26/2014 05/26/2014 2.16.840.1.897060.4.391.11.21320 [facility] Unknown [id number]-660o-74pw-[id number] 05/26/2014 05/26/2014 2.16.840.1.858162.4.391.11.64000 [facility] Unknown [id number] 05/26/2014 05/26/2014 2.16.840.1.134274.4.391.11.24564 [facility] Unknown [id number] 05/26/2014 05/26/2014 2.16.840.1.666910.4.391.11. [facility] Unknown [id number]-[id number] 05/26/2014 05/26/2014 2.16.840.1.016326.4.391.11.12294 [facility] Unknown [id number]-[id number] 05/26/2014 05/26/2014 2.16.840.1.559381.4.391.11. [facility] Unknown [id number]-gl11-250q-28e7-81bs78gly78a 05/26/2014 05/26/2014 2.16.840.1.809941.4.391.11.53006 [facility] Unknown [id number] 05/26/2014 05/26/2014 2.16.840.1.380368.4.391.11. [facility] Unknown [id number]-1r0c-3khd-p3zk-mpcm76i6kysu 05/26/2014 05/26/2014 2.16.840.1.788184.4.391.11.64702 [facility] Unknown [id number]-jy62-x6d1h30y2a91 05/26/2014 05/26/2014 2.16.840.1.464729.4.391.11.36616 [facility] Unknown [id number] 05/26/2014 05/26/2014 2.16.840.1.939036.4.391.11.10839 [facility] Unknown [id number] 05/26/2014 05/26/2014 2.16.840.1.590035.4.391.11.54317 [facility] Unknown [id number]-9fgm-vyuw-rq63n212elq0 05/26/2014 05/26/2014 2.16.840.1.289813.4.391.11.67670 [facility] Unknown [id number]-[id number] 05/26/2014 05/26/2014 2.16.840.1.121360.4.391.11.01552 [facility] Unknown [id number]-[id number] 05/26/2014 05/26/2014 2.16.840.1.219507.4.391.11.63109 [facility] Unknown [id number]-3717-70g8-8he62z5s0sm6 05/26/2014 05/26/2014 2.16.840.1.973469.4.391.11.46713 [facility] Unknown [id number] 05/26/2014 05/26/2014 2.16.840.1.895479.4.391.11. [facility] Unknown [id number] 05/26/2014 05/26/2014 2.16.840.1.720341.4.391.11. [facility] Unknown [id number] 05/26/2014 05/26/2014 2.16.840.1.099486.4.391.11.13664 [facility] Unknown [id number]-m014-[id number] 05/26/2014 05/26/2014 2.16.840.1.828848.4.391.11.24489 [facility] Unknown [id number]-[id number]-[id number] 05/26/2014 05/26/2014 2.16.840.1.266842.4.391.11.42951 [facility] Unknown [id number]-6h60-i60s-[id number] 05/26/2014 05/26/2014 2.16.840.1.153124.4.391.11.61011 [facility] Unknown [id number]-b293-36bx-60bk-803b22sa7lmx 05/26/2014 05/26/2014 2.16.840.1.630520.4.391.11.26793 [facility] Unknown [id number]-4oxt-8kp5-ki7s-846rw65o9wh9 05/26/2014 05/26/2014 2.16.840.1.035973.4.391.11.78570 [facility] Unknown [id number] 05/26/2014 05/26/2014 2.16.840.1.083723.4.391.11.77075 [facility] Unknown [id number] 05/26/2014 05/26/2014 2.16.840.1.685979.4.391.11. [facility] Unknown [id number]-[id number] 05/26/2014 05/26/2014 2.16.840.1.076268.4.391.11.98387 [facility] Unknown [id number]-[id number] 05/26/2014 05/26/2014 2.16.840.1.083700.4.391.11.37898 [facility] Unknown [id number]-[id number] 05/26/2014 05/26/2014 2.16.840.1.424468.4.391.11.33511 [facility] Unknown [id number]-bjg8-g513jr04z27p 05/26/2014 05/26/2014 2.16.840.1.166070.4.391.11.22072 [facility] Unknown [id number] 05/26/2014 05/26/2014 2.16.840.1.737970.4.391.11.19747 [facility] Unknown [id number]-[id number]-931b-5w1q469e01tb 05/26/2014 05/26/2014 2.16.840.1.517374.4.391.11.50773 [facility] Unknown [id number]-[id number]-[id number] 05/26/2014 05/26/2014 2.16.840.1.028627.4.391.11.76611 [facility] Unknown [id number] 05/26/2014 05/26/2014 2.16.840.1.661042.4.391.11.30386 [facility] Unknown [id number] 05/26/2014 05/26/2014 2.16.840.1.687768.4.391.11.80694 [facility] Unknown [id number] 05/26/2014 05/26/2014 2.16.840.1.259443.4.391.11.31939 [facility] Unknown [id number]-[id number] 06/15/2014 06/15/2014 2.16.840.1.528501.4.391.11.93008 [facility] Unknown [id number] 06/15/2014 06/15/2014 2.16.840.1.519150.4.391.11.32915 [facility] Unknown [id number]-[id number] 06/15/2014 06/15/2014 2.16.840.1.417959.4.391.11. [facility] Unknown [id number] 06/15/2014 06/15/2014 2.16.840.1.290363.4.391.11.94202 [facility] Unknown [id number] 06/15/2014 06/15/2014 2.16.840.1.750135.4.391.11. [facility] Unknown [id number]-[id number]-[id number] 06/15/2014 06/15/2014 2.16.840.1.793554.4.391.11. [facility] Unknown [id number]-[id number] 06/15/2014 06/15/2014 2.16.840.1.438810.4.391.11. [facility] Unknown [id number] 06/15/2014 06/15/2014 2.16.840.1.221939.4.391.11. [facility] Unknown [id number] 06/15/2014 06/15/2014 2.16.840.1.988337.4.391.11.26848 [facility] Unknown [id number] 06/15/2014 06/15/2014 2.16.840.1.135560.4.391.11.49990 [facility] [facility] Unknown [id number]-n8p9-86g2-[id number] 06/15/2014 06/15/2014 2.16.840.1.582606.4.391.11.35511 [facility] Unknown [id number]lh9w 06/15/2014 06/15/2014 2.16.840.1.710642.4.391.11.53014 [facility] Unknown [id number] 06/15/2014 06/15/2014 2.16.840.1.225186.4.391.11.59150 [facility] Unknown [id number]-48xw-8290-7x48-57u76ln21u92 06/15/2014 06/15/2014 2.16.840.1.530735.4.391.11.99328 [facility] Unknown [id number]-l88n-26a8-[id number] 06/15/2014 06/15/2014 2.16.840.1.758944.4.391.11.67924 [facility] Unknown [id number]-1i88-2101-g7z6-76ht183o017o 06/15/2014 06/15/2014 2.16.840.1.128232.4.391.11. [facility] Unknown [id number]-2w09-0154-94u9dvt16l83 06/15/2014 06/15/2014 2.16.840.1.193794.4.391.11.52646 [facility] Unknown ahsj2620-u0r6-5w19-18p1-5mc4b44ui177 06/15/2014 06/15/2014 2.16.840.1.644772.4.391.11.07881 [facility] Unknown [id number]-27si-51w5-4667-ouwg953fim99 06/15/2014 06/15/2014 2.16.840.1.979737.4.391.11.34069 [facility] Unknown [id number]-y56e-4b10737943y6 06/15/2014 06/15/2014 2.16.840.1.010481.4.391.11.04263 [facility] Unknown l36g5sv4-g56w-9363-uw60-xz086o8t18m7 06/15/2014 06/15/2014 2.16.840.1.408294.4.391.11.42959 [facility] Unknown a045sah5-4a59-6ns1-202w-zkp41m762623 06/15/2014 06/15/2014 2.16.840.1.777343.4.391.11.18269 [facility] Unknown [id number]-wh2p-460lc60ro1n5 06/15/2014 06/15/2014 2.16.840.1.885233.4.391.11.83660 [facility] Unknown [id number]-4a11-6401-710u-5y3t8254b5p3 06/15/2014 06/15/2014 2.16.840.1.929530.4.391.11.81866 [facility] Unknown [id number]-453r-e9k4-fv163y8dz265 06/15/2014 06/15/2014 2.16.840.1.482861.4.391.11.64376 [facility] Unknown [id number]-8stw-2j6m-0t9rg929pv07 06/15/2014 06/15/2014 2.16.840.1.619037.4.391.11.16126 [facility] Unknown [id number]-d2g1-09we-01v4-28qiue9s50ml 06/15/2014 06/15/2014 2.16.840.1.886194.4.391.11.20598 [facility] Unknown mzjsxusg-fi21-665gyt27-546z-l5u1-3j54186bj966 06/15/2014 06/15/2014 2.16.840.1.838438.4.391.11.62924 [facility] Unknown [id number]-9tc9-2y76-48bep0g592u4 06/15/2014 06/15/2014 2.16.840.1.280772.4.391.11.49561 [facility] Unknown [id number]-456y-0814-2gt6-rl21t26ewz29 06/15/2014 06/15/2014 2.16.840.1.846496.4.391.11.44998 [facility] Unknown [id number]-5rl2-u3nm-510s2t9946i3 06/15/2014 06/15/2014 2.16.840.1.336645.4.391.11.98260 [facility] Unknown [id number]-p058-3u94-y15h-2b11092jet9q 06/15/2014 06/15/2014 2.16.840.1.112953.4.391.11.67710 [facility] Unknown [id number]-b5wa-98i3-buy4-n6376i6d8926 06/15/2014 06/15/2014 2.16.840.1.606796.4.391.11.63056 [facility] Unknown [id number]-h910-88k7-671y-115863x1rpb7 06/15/2014 06/15/2014 2.16.840.1.297142.4.391.11.44771 [facility] Unknown [id number]-53qo-9i0l-xzen-447264k5rgv5 06/15/2014 06/15/2014 2.16.840.1.958578.4.391.11.32280 [facility] Unknown [id number]-y1j0-a364agy147w0 06/15/2014 06/15/2014 2.16.840.1.997138.4.391.11.93852 [facility] Unknown [id number]-f058-4l14-315z-77923h6w81oo 06/15/2014 06/15/2014 2.16.840.1.478294.4.391.11.03468 [facility] Unknown [id number]-c523330ua611 06/15/2014 06/15/2014 2.16.840.1.324665.4.391.11.10410 [facility] Unknown [id number]-c1q9-8515tdk0wf81 06/15/2014 06/15/2014 2.16.840.1.117016.4.391.11.05833 [facility] Unknown [id number]-8000-6s9q-yr27-316op925f247 06/15/2014 06/15/2014 2.16.840.1.284861.4.391.11.59501 [facility] Unknown [id number]-6098-e943-003gpnn3w9i3 06/15/2014 06/15/2014 2.16.840.1.733271.4.391.11.25253 [facility] Unknown [id number]-k71l-e35f52e68bz3 07/08/2014 07/08/2014 2.16.840.1.837009.4.391.11.42429 [facility] Unknown n39qe530-90a8-0l1f-c59d-cw3w4lgroz2a 07/08/2014 07/08/2014 2.16.840.1.064530.4.391.11.65306 [facility] Unknown [id number]-k199-2v9ew85fv175 07/08/2014 07/08/2014 2.16.840.1.957446.4.391.11.77411 [facility] Unknown [id number]-13h8-85q7-17226dh6b9v4 07/08/2014 07/08/2014 2.16.840.1.214835.4.391.11.47137 [facility] Unknown [id number]-f69b-595l-ewf5-086lqo6075d8 07/08/2014 07/08/2014 2.16.840.1.188516.4.391.11.69009 [facility] Unknown [id number]-b2yp-1iq0-z019-w922jtlcy289 07/08/2014 07/08/2014 2.16.840.1.640890.4.391.11.32765 [facility] Unknown [id number]-n843-606b18vud4w6 07/08/2014 07/08/2014 2.16.840.1.273954.4.391.11.56864 [facility] Unknown [id number]-562g-305o-s078s2c2qc96 07/08/2014 07/08/2014 2.16.840.1.741694.4.391.11.19149 [facility] Unknown [id number]-[id number] 07/08/2014 07/08/2014 2.16.840.1.671491.4.391.11.21718 [facility] Unknown [id number]-51ra244742b5 07/08/2014 07/08/2014 2.16.840.1.051254.4.391.11.75061 [facility] Unknown [id number]-[id number]-c705-df05uv884281 07/08/2014 07/08/2014 2.16.840.1.579191.4.391.11.44028 [facility] Unknown bb31r75a-79f3-7qlx-1ghh-6c9e6503v60y 07/08/2014 07/08/2014 2.16.840.1.201369.4.391.11.90112 [facility] Unknown [id number] 07/08/2014 07/08/2014 2.16.840.1.719320.4.391.11.61366 [facility] g82x3nr4-7143-6xh0-2dj3-d5l6or41xf52 07/08/2014 07/08/2014 2.16.840.1.174607.4.391.11.45711 [facility] Unknown [id number]-0i17-4y8e-p598-565ay1304ml1 07/08/2014 07/08/2014 2.16.840.1.743380.4.391.11.01792 [facility] Unknown [id number]-[id number] 07/08/2014 07/08/2014 2.16.840.1.403674.4.391.11.42412 [facility] Unknown [id number]-lh81-7vww-94qi-n09p6y941tv7 07/08/2014 07/08/2014 2.16.840.1.740412.4.391.11.05184 [facility] Unknown [id number]-e822-24ok-d45h-065680zz1n9h 07/08/2014 07/08/2014 2.16.840.1.870948.4.391.11.95541 [facility] Unknown [id number]-416x-9af9-jrnd-p598l03m2u14 07/08/2014 07/08/2014 2.16.840.1.977509.4.391.11.72269 [facility] Unknown [id number]-97yd-4gu2-0cau-2v97pj568160 07/08/2014 07/08/2014 2.16.840.1.684686.4.391.11.36075 [facility] Unknown [id number]-u5o9831gu26h 07/08/2014 07/08/2014 2.16.840.1.047779.4.391.11.45555 [facility] Unknown ms0397s0-h5cr-3p5g-1m96-6mh39kiu57g3 07/08/2014 07/08/2014 2.16.840.1.118498.4.391.11.44869 [facility] Unknown [id number]-28au-3441-dy10-d293ugf43i76 07/08/2014 07/08/2014 2.16.840.1.797742.4.391.11.23382 [facility] Unknown [id number]-x1op772598jz 07/08/2014 07/08/2014 2.16.840.1.921985.4.391.11.31409 [facility] Unknown [id number]-365x-00yq-0235-7v924471g913 07/08/2014 07/08/2014 2.16.840.1.862826.4.391.11.03920 [facility] Unknown r1k18q8f-2212-9u95-b8d8-dnsp0qx6c666 07/08/2014 07/08/2014 2.16.840.1.924842.4.391.11.13871 [facility] Unknown [id number] 07/08/2014 07/08/2014 2.16.840.1.796735.4.391.11.34268 [facility] Unknown d2t938pf-2325-7w4o-g0s1-0i616f5d019o 07/08/2014 07/08/2014 2.16.840.1.061254.4.391.11.10367 [facility] Unknown [id number]-1dq7-39xf-0mq8-g1f065r859t5 07/08/2014 07/08/2014 2.16.840.1.503923.4.391.11.30841 [facility] Unknown [id number]-77ks-5otp-247254jrbkyj 07/08/2014 07/08/2014 2.16.840.1.219949.4.391.11.82175 [facility] Unknown [id number]-y9pb-5oz2-34hr-j074hxsp64e5 07/08/2014 07/08/2014 2.16.840.1.917034.4.391.11.40399 [facility] Unknown [id number]-y6aj-[id number] 07/08/2014 07/08/2014 2.16.840.1.401512.4.391.11.40338 [facility] Unknown u1yd09s0-4lpz-5f2g-3117-4hn47p169t80 07/08/2014 07/08/2014 2.16.840.1.525835.4.391.11.65735 [facility] Unknown [id number]-r3hy-3701-1b0b-11pfg6i61224 07/08/2014 07/08/2014 2.16.840.1.993343.4.391.11.33823 [facility] Unknown [id number]-9744-63w0-b1951e894302 07/08/2014 07/08/2014 2.16.840.1.546529.4.391.11.56508 [facility] Unknown [id number]-t859-u156533v679v 07/08/2014 07/08/2014 2.16.840.1.824209.4.391.11.98388 [facility] Unknown 482ags0t-esp7-13i8-6607-4014qw264eta 07/08/2014 07/08/2014 2.16.840.1.071363.4.391.11.18265 [facility] Unknown [id number]-l44g-22k8s2oc6329 07/08/2014 07/08/2014 2.16.840.1.602707.4.391.11.29400 [facility] Unknown rn9b5q2e-6127-2464-nm98-m8f751z76729 07/08/2014 07/08/2014 2.16.840.1.954862.4.391.11.26912 [facility] Unknown [id number]-8879-2718-p39e-7lcdu1269a50 07/08/2014 07/08/2014 2.16.840.1.064965.4.391.11.19641 [facility] Unknown [id number]-vnfp-7148-8f6j-2s73f4k77127 07/08/2014 07/08/2014 2.16.840.1.260838.4.391.11.07299 [facility] Unknown [id number]-ozp7-0rb3-[id number] 07/20/2014 07/20/2014 2.16.840.1.479628.4.391.11.04856 [facility] Unknown [id number]-az3m-7702-6ht2-wy78hb3xyz11 07/20/2014 07/20/2014 2.16.840.1.500544.4.391.11.28271 [facility] Unknown [id number]-a732-30bg-5582-ocvx0h8ag65w 07/20/2014 07/20/2014 2.16.840.1.766036.4.391.11.37172 [facility] Unknown [id number]-n8qq-0ty7-6y56-475g25f324g7 07/20/2014 07/20/2014 2.16.840.1.979944.4.391.11.65298 [facility] Unknown 264i6p3h-fc8e-6a9d-fodg-l3es20w55i8a 07/20/2014 07/20/2014 2.16.840.1.465090.4.391.11.00503 [facility] Unknown uak486xq-v9kf-5673-6u10-880460yd84r7 07/20/2014 07/20/2014 2.16.840.1.087553.4.391.11.54229 [facility] Unknown [id number]-2h1e-35hk-f865-bke1i479bo2k 07/20/2014 07/20/2014 2.16.840.1.275842.4.391.11.79204 [facility] Unknown [id number]-2502-6uv4-qyk2-60o7952z8u44 07/20/2014 07/20/2014 2.16.840.1.064339.4.391.11.29482 [facility] Unknown [id number]-8f16-4113-v16x-pb805q09442o 07/20/2014 07/20/2014 2.16.840.1.278246.4.391.11.29773 [facility] Unknown oiy630v7-gbl7-38m6-64d7-2r7mh7ab4a73 07/20/2014 07/20/2014 2.16.840.1.229392.4.391.11.84509 [facility] Unknown 349p19dq-bni8-2c33-zu2k-62rflk23v03q 07/20/2014 07/20/2014 2.16.840.1.378855.4.391.11.75652 [facility] Unknown 15o9qo1e-c7s2-8427-q14b-08s7a8n00gl4 07/20/2014 07/20/2014 2.16.840.1.930385.4.391.11.89884 [facility] [id number]-p7o0-399v-x3z1-27v79475070q 07/20/2014 07/20/2014 2.16.840.1.192501.4.391.11.24600 [facility] Unknown j7av913i-dd12-24w1-gr1u-554488r6d72n 07/20/2014 07/20/2014 2.16.840.1.390097.4.391.11.36923 [facility] Unknown 3nzp7k39-bh14-50ao-d146-11136y660314 07/20/2014 07/20/2014 2.16.840.1.695989.4.391.11.92831 [facility] Unknown 7q7fmzes-d76y-69ad-467b-g0uq52vntl07 07/20/2014 07/20/2014 2.16.840.1.150859.4.391.11.52110 [facility] Unknown 81a87z74-671x-7562-77ab-qe0boba20nw1 07/20/2014 07/20/2014 2.16.840.1.410535.4.391.11.16403 [facility] hh27w5sj-f6j7-509s-02p0-1397r951e6w5 07/20/2014 07/20/2014 2.16.840.1.829695.4.391.11.50880 [facility] [id number]-1er2-06r6-2axz-ex0080aq7j68 07/20/2014 07/20/2014 2.16.840.1.955820.4.391.11.91072 [facility] oa7n705g-5451-6eay-f4l1-4yh7y135u453 07/20/2014 07/20/2014 2.16.840.1.593986.4.391.11.95715 [facility] qr2fqn1r-wa53-4677-s941-zj8d31y584c5 07/20/2014 07/20/2014 2.16.840.1.293042.4.391.11.15423 [facility] Unknown [id number]-96ys-2l5544501z60 07/20/2014 07/20/2014 2.16.840.1.918247.4.391.11.77711 [facility] Unknown i6f1770m-g108-5m36-z6x6-i0p3e38cn1bw 07/20/2014 07/20/2014 2.16.840.1.190228.4.391.11.38251 [facility] ygfm867d-4t4e-92uu-xk8e-d77d4171g09k 07/20/2014 07/20/2014 2.16.840.1.387868.4.391.11.48065 [facility] Unknown [id number]-2117-1a28-1854uw8938mg 07/20/2014 07/20/2014 2.16.840.1.373507.4.391.11.19214 [facility] Unknown 4077j3u2-dz4d-5j49-z222-s98677i95q30 07/20/2014 07/20/2014 2.16.840.1.083505.4.391.11.89162 [facility] Unknown 9587w7d6-u78q-6940-7139-317w116ns0no 07/20/2014 07/20/2014 2.16.840.1.107166.4.391.11.77415 [facility] Unknown 4804yd2d-47b4-2bu6-4454-1086k3r1j7s6 07/20/2014 07/20/2014 2.16.840.1.783710.4.391.11.54342 [facility] Unknown [id number]-438f-d9od-yd5642ru3o3t 07/20/2014 07/20/2014 2.16.840.1.831661.4.391.11.82869 [facility] Unknown [id number]-fjs1-7784o77z73o7 07/20/2014 07/20/2014 2.16.840.1.866566.4.391.11.31783 [facility] Unknown [id number]-43x985722d79 07/20/2014 07/20/2014 2.16.840.1.644638.4.391.11.72153 [facility] Unknown [id number]-e8ih-8335-czzl-76p950l4p7e7 07/20/2014 07/20/2014 2.16.840.1.579674.4.391.11.48983 [facility] Unknown [id number]-e4hs-487e6sgg1pq0 07/20/2014 07/20/2014 2.16.840.1.264049.4.391.11.32433 [facility] olo561x8-3x11-63rz-4q60-4009xyi3l722 07/20/2014 07/20/2014 2.16.840.1.216456.4.391.11.76714 [facility] Unknown [id number]-51q7-prw3-555v83850nq5 07/20/2014 07/20/2014 2.16.840.1.884567.4.391.11.59518 [facility] Unknown [id number]-v608-84494819i415 07/20/2014 07/20/2014 2.16.840.1.719690.4.391.11.79388 [facility] Unknown [id number]-9y66-rbc4-024830sj1g42 07/20/2014 07/20/2014 2.16.840.1.172456.4.391.11.31171 [facility] p0on5o52-45s2-1040-l388-t96677e56ic6 07/20/2014 07/20/2014 2.16.840.1.621641.4.391.11.64782 [facility] Unknown 8u8g37fc-52s1-6991-8j0y-k373l845iz55 07/20/2014 07/20/2014 2.16.840.1.318429.4.391.11.31701 [facility] Unknown 01m22y1k-l08p-5o25-xn62-2t6098820m3y 07/20/2014 07/20/2014 2.16.840.1.529726.4.391.11.76529 [facility] Unknown 2w64j52a-h9o9-3p30-oo93-5141b01o679c 07/20/2014 07/20/2014 2.16.840.1.543298.4.391.11.21651 [facility] Other 01g6398m-l42j-89kj-m7z1-c4695333wz6h 07/21/2014 07/21/2014 2.16.840.1.085477.4.391.11.46177 [facility] Other x9d12xyk-7h98-106v-nju5-x349y423371e 07/21/2014 07/21/2014 2.16.840.1.960761.4.391.11.10773 [facility] Other 4f034g4n-8ll4-450b-8a6x-51xi10p6iv2g 07/21/2014 07/21/2014 2.16.840.1.567215.4.391.11.28093 [facility] Other 1f20z93q-6539-2jl5-751x-17sf52378a31 07/21/2014 07/21/2014 2.16.840.1.857977.4.391.11.54344 [facility] Other n375u02m-7536-052z-wj91-3949tc443d85 07/21/2014 07/21/2014 2.16.840.1.588642.4.391.11.55512 [facility] Other 1584814m-6938-538l-k1no-m4jw83z93534 07/21/2014 07/21/2014 2.16.840.1.360117.4.391.11.16626 [facility] Other 5h1h8fcx-2297-91u6-8t17-6627j4x0i9b6 07/21/2014 07/21/2014 2.16.840.1.824600.4.391.11.29929 [facility] Other 57i05704-9qja-3qa1-49x4-429ps8f011t6 07/21/2014 07/21/2014 2.16.840.1.347469.4.391.11.34245 [facility] Other lv350038-1989-7232-2130-k19876450h8h 07/21/2014 07/21/2014 2.16.840.1.448412.4.391.11.36594 [facility] Other j1n2m99k-c3c6-2477-3439-89ay37e327be 07/21/2014 07/21/2014 2.16.840.1.381677.4.391.11.59955 [facility] Other q70iq3o7-4389-3l98-h39c-k7d007k0wr2j 07/21/2014 07/21/2014 2.16.840.1.642913.4.391.11.71504 [facility] Other 7s50sc58-j906-1f0f-2ym8-610996e0709f 07/21/2014 07/21/2014 2.16.840.1.167760.4.391.11.13705 [facility] Other 364fsz20-711m-5xd3-oy0e-823x262i4767 07/21/2014 07/21/2014 2.16.840.1.090403.4.391.11.36563 [facility] Other o7523bp7-4p56-548p-2043-2w3z3t13hc55 07/21/2014 07/21/2014 2.16.840.1.553153.4.391.11.77973 [facility] Other 5u6df040-84z4-4269-2483-m2l287044l04 07/21/2014 07/21/2014 2.16.840.1.718142.4.391.11.23895 [facility] Other [id number]-j589-358t-ozi9-jz8q663u5380 07/21/2014 07/21/2014 2.16.840.1.412610.4.391.11.66489 [facility] Other 228l7b80-b371-750s-4752-166b0590i9g6 07/21/2014 07/21/2014 2.16.840.1.347936.4.391.11.05286 [facility] Other 4u70exr6-09uj-079f-i0h1-9o2q4354pf5e 07/21/2014 07/21/2014 2.16.840.1.830462.4.391.11.45647 [facility] Other 1o84045h-kn46-98n3-37km-5b9k6pa726p1 07/21/2014 07/21/2014 2.16.840.1.127612.4.391.11.65808 [facility] Other -j2f2-486q-26jd-w244r68631ic 07/21/2014 07/21/2014 2.16.840.1.568654.4.391.11.27968 [facility] Other pk3j9025-06lo-5vhb-36wq-r651f23801i0 07/21/2014 07/21/2014 2.16.840.1.515976.4.391.11.32282 [facility] Other [id number]-rp42-70na657i1575 07/21/2014 07/21/2014 2.16.840.1.444930.4.391.11.01385 [facility] Other 64h7s26i-tt18-458p-zma0-8223c0i83899 07/21/2014 07/21/2014 2.16.840.1.782370.4.391.11.90789 [facility] Other [id number]-6v23-6168-x3rl-c8z7958263wx 07/21/2014 07/21/2014 2.16.840.1.466002.4.391.11.64669 [facility] Other 78l6j646-u12t-7j68-a023-o65605z7y3b2 07/21/2014 07/21/2014 2.16.840.1.594145.4.391.11.38974 [facility] Other [id number]-v4u2-m0e3h2f7g9eq 07/21/2014 07/21/2014 2.16.840.1.756786.4.391.11.86774 [facility] Other 31158ib1-6kem-8274-q0od-y30j981v8386 07/21/2014 07/21/2014 2.16.840.1.193546.4.391.11.68794 [facility] Other 46i8ty27-936b-73r8-3hdn-02x13597x81y 07/21/2014 07/21/2014 2.16.840.1.270144.4.391.11.75408 [facility] Other 1u9z7bs4-ds96-6gw0-w19z-z6s8643uey10 07/21/2014 07/21/2014 2.16.840.1.936577.4.391.11.87593 [facility] Other 4a2r0a45-52fu-74h7-d571-6722oj4k2lj0 07/21/2014 07/21/2014 2.16.840.1.613432.4.391.11.45580 [facility] Other [id number]-9507-v43j-615285e9312t 07/21/2014 07/21/2014 2.16.840.1.966333.4.391.11.33282 [facility] Other 86w32309-4d72-7644-jsuo-q8d2j3yq8027 07/21/2014 07/21/2014 2.16.840.1.845601.4.391.11.62084 [facility] Other 191zzu3t-z075-6me6-3z0v-528m78c0160i 07/21/2014 07/21/2014 2.16.840.1.123165.4.391.11.56079 [facility] Other 285rgpc0-3gsd-0hco-2i01-028751nk1297 07/21/2014 07/21/2014 2.16.840.1.952293.4.391.11.39779 [facility] Other zk10s3y5-4489-6380-1t95-48366b068i8h 07/21/2014 07/21/2014 2.16.840.1.556068.4.391.11.80729 [facility] Other 2j9q868r-3y99-4572-o47i-sw96552323ya 07/21/2014 07/21/2014 2.16.840.1.706935.4.391.11.03857 [facility] Other 38q547d6-gz7q-0rn7-w935-969n83379p2k 07/21/2014 07/21/2014 2.16.840.1.806814.4.391.11.27945 [facility] Other 8tso50o8-1851-7302-o491-tgvdh5092z96 07/21/2014 07/21/2014 2.16.840.1.537596.4.391.11.34980 [facility] Other 371l727h-fs93-84gs-j9b8-7nr9x052545h 07/21/2014 07/21/2014 2.16.840.1.363875.4.391.11.64499 [facility] Other mi9f3l51-6909-0594-9yau-e6gfd917n85b 07/21/2014 07/21/2014 2.16.840.1.959979.4.391.11.17794 [facility] Other 3f8e5116-270d-5590-7a4n-72h1ok630x44 07/21/2014 07/21/2014 2.16.840.1.804274.4.391.11.98611 [facility] Unknown rj8n5g8j-yq68-45vs-k4co-43637034c7ub 08/07/2014 08/07/2014 2.16.840.1.519393.4.391.11.53260 [facility] Unknown [id number]-5vln-8951-h1bn-42340rhy84ql 08/07/2014 08/07/2014 2.16.840.1.104613.4.391.11.09057 [facility] Unknown [id number]-sot1-8k6c-w1qk-[id number] 08/07/2014 08/07/2014 2.16.840.1.080807.4.391.11.28788 [facility] Unknown g2u0g78r-910i-4i62-b4ba-5spoiah3b9m6 08/07/2014 08/07/2014 2.16.840.1.234678.4.391.11.34437 [facility] Unknown bp2gz925-ji02-6925-t53c-b620wk255x62 08/07/2014 08/07/2014 2.16.840.1.439098.4.391.11.01538 [facility] Unknown [id number]-842o-10o0-6178-t56zz45ebm2d 08/07/2014 08/07/2014 2.16.840.1.486284.4.391.11.37265 [facility] Unknown [id number]-[id number] 08/07/2014 08/07/2014 2.16.840.1.344827.4.391.11.97826 [facility] Unknown 352sill0-kbk1-9839-7j53-6f5efms3t942 08/07/2014 08/07/2014 2.16.840.1.723641.4.391.11.77269 [facility] Unknown [id number]-5xfd-5589-8rr3-979d021513h6 08/07/2014 08/07/2014 2.16.840.1.533123.4.391.11.54744 [facility] Unknown 05qfn7b9-4587-9u21-9s34-mp0g8261umpq 08/07/2014 08/07/2014 2.16.840.1.611709.4.391.11.51332 [facility] Unknown [id number]-l502-3i0388817b5i 08/07/2014 08/07/2014 2.16.840.1.840887.4.391.11.57421 [facility] Unknown 7k7f8v43-5882-58t3-s9i2-a9j0s87o1t71 08/07/2014 08/07/2014 2.16.840.1.570179.4.391.11.08798 [facility] Unknown [id number]-pqo7-775y-03o9-575y61yvk76b 08/07/2014 08/07/2014 2.16.840.1.083165.4.391.11.50897 [facility] Unknown [id number]-02g4-5yt5-3e5iggz99689 08/07/2014 08/07/2014 2.16.840.1.652478.4.391.11.03355 [facility] Unknown [id number]-97rg-2up6-05xa-2a3n2l31083g 08/07/2014 08/07/2014 2.16.840.1.721787.4.391.11.54403 [facility] Unknown i27c9om0-5529-8599-69fu-l52164edijgw 08/07/2014 08/07/2014 2.16.840.1.141640.4.391.11.93662 [facility] Unknown [id number]-xih7-[id number] 08/07/2014 08/07/2014 2.16.840.1.117047.4.391.11.32928 [facility] Unknown p0ckssyv-8o3i-26u6-jfud-07to39073t1f 08/07/2014 08/07/2014 2.16.840.1.396709.4.391.11.96388 [facility] Unknown [id number]-9j9t-i97v-868i44855wn8 08/07/2014 08/07/2014 2.16.840.1.868406.4.391.11.25101 [facility] Unknown [id number]-d24m-0109-580s-2827wj3wk066 08/07/2014 08/07/2014 2.16.840.1.250569.4.391.11.38619 [facility] Unknown [id number]-fo0n-06m4n5b13123 08/07/2014 08/07/2014 2.16.840.1.859610.4.391.11.59441 [facility] Unknown n51j52m8-1nnk-8484-20z3-0a504j8n4m42 08/07/2014 08/07/2014 2.16.840.1.246477.4.391.11.77951 [facility] Unknown [id number]-[id number] 08/07/2014 08/07/2014 2.16.840.1.283027.4.391.11.45709 [facility] Unknown 89s6wie8-402d-7ijj-gd25-0wk16zf6r32n 08/07/2014 08/07/2014 2.16.840.1.040507.4.391.11.04922 [facility] Unknown nf5yh16a-3766-4o17-9z30-o587m64l6lv3 08/07/2014 08/07/2014 2.16.840.1.820281.4.391.11.90997 [facility] Unknown [id number]-5fi5-1b31-76253i94py7o 08/07/2014 08/07/2014 2.16.840.1.563967.4.391.11.64449 [facility] Unknown [id number]-[id number]-y47agn3m1681 08/07/2014 08/07/2014 2.16.840.1.931111.4.391.11.78709 [facility] Unknown 10yj79i1-a8f6-401s-i5a0-966d3nu66iy9 08/07/2014 08/07/2014 2.16.840.1.083329.4.391.11.45311 [facility] Unknown [id number]-0go4-a5q5-1y52x75yum68 08/07/2014 08/07/2014 2.16.840.1.829175.4.391.11.93230 [facility] Unknown [id number]-3589-68v0-lu02-61ip9h78vbja 08/07/2014 08/07/2014 2.16.840.1.349764.4.391.11.55395 [facility] [facility] 35d29v17-6080-7687-1u94-ryl6f1987e6v 08/07/2014 08/07/2014 2.16.840.1.626736.4.391.11.49896 [facility] Unknown t4b4c967-2wh0-8154-n6g4-7tq7x50tx7x9 08/07/2014 08/07/2014 2.16.840.1.953523.4.391.11.04269 [facility] 22u6ntc2-ogx3-1q86-h897-yis849x3587q 08/07/2014 08/07/2014 2.16.840.1.936303.4.391.11.06983 [facility] Unknown 35600y86-y7ri-7552-b831-ad6l556jx088 08/07/2014 08/07/2014 2.16.840.1.857674.4.391.11.97348 [facility] Unknown 6044973a-78hj-9p3l-u6o3-491oimwdk235 08/07/2014 08/07/2014 2.16.840.1.890368.4.391.11.47256 [facility] Unknown 71s02x3a-lpsr-9451-u7yu-z795y97z880w 08/07/2014 08/07/2014 2.16.840.1.362688.4.391.11.65971 [facility] jc34xz9d-5960-2cau-r866-36c75v45x4tf 08/07/2014 08/07/2014 2.16.840.1.482921.4.391.11.53680 [facility] 2l2pm7p9-5w32-9548-kf33-1cr6116j14s0 08/07/2014 08/07/2014 2.16.840.1.380659.4.391.11.26033 [facility] 52hp70w8-d089-5886-6t20-263715jpa6q4 08/07/2014 08/07/2014 2.16.840.1.472227.4.391.11.65204 [facility] 48q6e005-9651-5c96-5f56-w6425ri0712o 10/06/2014 10/06/2014 2.16.840.1.222631.4.391.11.76889 [facility] 0tf96i9g-27h5-29g8-q9q1-zyj3563k1fba 10/06/2014 10/06/2014 2.16.840.1.798788.4.391.11.00145 [facility] 8vy15xt0-3t4o-3603-jcz7-u50u0782efl7 10/06/2014 10/06/2014 2.16.840.1.177254.4.391.11.30747 [facility] 603g3657-4p9t-1096-15jq-8lxl9266o078 10/06/2014 10/06/2014 2.16.840.1.221893.4.391.11.33907 [facility] 4o28zzj5-g41f-2zu7-561p-px9cs884an9x 10/06/2014 10/06/2014 2.16.840.1.305775.4.391.11.92476 [facility] Unknown w9l3rs54-0193-3o41-xv56-348jn1176b3x 10/06/2014 10/06/2014 2.16.840.1.779348.4.391.11.30916 [facility] 9k735678-0909-9724-7930-uj2r7kh22k7l 10/06/2014 10/06/2014 2.16.840.1.556609.4.391.11.25578 [facility] q1251550-eu54-84s4-3214-656307qi0g57 10/06/2014 10/06/2014 2.16.840.1.591933.4.391.11.69349 [facility] dgn81293-orxq-5qgm-080s-4312d6rx35vk 10/06/2014 10/06/2014 2.16.840.1.595378.4.391.11.80187 [facility] Unknown 25563509-6mj7-945l-o4r6-2un48h94ao7j 10/06/2014 10/06/2014 2.16.840.1.811515.4.391.11.30822 [facility] k44b095a-v548-62p5-by3w-h0cp130148fb 10/06/2014 10/06/2014 2.16.840.1.216365.4.391.11.75605 [facility] y32g4i9p-ef0b-5557-zhm1-751j86482609 10/06/2014 10/06/2014 2.16.840.1.144632.4.391.11.50596 [facility] Unknown 4027l71z-yoz9-302h-zb34-7642470w0xah 10/06/2014 10/06/2014 2.16.840.1.773327.4.391.11.22055 [facility] Unknown 2541z389-r1i1-0fj5-n002-79p619305hy5 10/06/2014 10/06/2014 2.16.840.1.408786.4.391.11.97844 [facility] Unknown am291450-15oe-58j7-x50j-e3dfib9f2451 10/06/2014 10/06/2014 2.16.840.1.889791.4.391.11.45274 [facility] 59ym8985-q33r-20d0-gf88-eo0p5t1yd320 10/06/2014 10/06/2014 2.16.840.1.084669.4.391.11.33943 [facility] Unknown 983pany0-1v5l-9617-v658-116295fanxg8 10/06/2014 10/06/2014 2.16.840.1.947970.4.391.11.41770 [facility] 0x6y051t-cts1-801g-ug90-471531u1b5ip 10/06/2014 10/06/2014 2.16.840.1.779177.4.391.11.90715 [facility] 849s5046-2797-7m37-j872-85z74203g136 10/06/2014 10/06/2014 2.16.840.1.521520.4.391.11.64857 [facility] 4sqn5674-wg4h-16a2-327r-t51y3583pi67 10/06/2014 10/06/2014 2.16.840.1.583952.4.391.11.82195 [facility] 95y9201u-0y47-4156-68t9-1s4dd124g16w 10/06/2014 10/06/2014 2.16.840.1.578538.4.391.11.05028 [facility] Unknown 97163233-ci45-317g-9463-r6fpj7231482 10/06/2014 10/06/2014 2.16.840.1.146115.4.391.11.61236 [facility] Unknown n7893kb5-81dg-39de-w048-102s9gm82gz2 10/06/2014 10/06/2014 2.16.840.1.000852.4.391.11.86198 [facility] yvw06fk4-d2e7-38o8-s48g-0911gi2ikju1 10/06/2014 10/06/2014 2.16.840.1.984002.4.391.11.25730 [facility] 0u959779-8rph-4va2-a83x-9v4sc65p9454 10/06/2014 10/06/2014 2.16.840.1.649164.4.391.11.13267 [facility] d774p1s0-400z-3bjw-ljfv-454e29c97wh9 10/06/2014 10/06/2014 2.16.840.1.561911.4.391.11.98313 [facility] x1w19s5b-8329-036j-5086-770al847pkas 10/06/2014 10/06/2014 2.16.840.1.956182.4.391.11.20248 [facility] e5y9vj47-c077-6y92-d18r-9f0f0i6290yo 10/06/2014 10/06/2014 2.16.840.1.341137.4.391.11.63381 [facility] Unknown 9145117b-dw0h-97zb-e599-979w728r5370 10/06/2014 10/06/2014 2.16.840.1.725438.4.391.11.76811 [facility] Unknown 84866a5j-0394-1037-l1uu-3kuxn306313g 10/06/2014 10/06/2014 2.16.840.1.049897.4.391.11.75836 [facility] y81e7l2k-8y69-2i01-r08z-fpd45a6nfv0p 10/06/2014 10/06/2014 2.16.840.1.372860.4.391.11.78007 [facility] 54182cgp-i212-5edr-1njq-j8r53y7z5q99 10/06/2014 10/06/2014 2.16.840.1.410227.4.391.11.72698 [facility] Unknown 31028om6-2azo-0h5v-e1hz-22v4104c84o1 10/06/2014 10/06/2014 2.16.840.1.313265.4.391.11.11412 [facility] 3c406483-39k6-32g9-5108-m3415jetgf90 10/06/2014 10/06/2014 2.16.840.1.607965.4.391.11.09828 [facility] s04465z3-2g25-26h0-98h6-ltz3l380sn6k 10/06/2014 10/06/2014 2.16.840.1.675877.4.391.11.73742 [facility] Unknown 2l1900qw-5ewj-66k3-d7x3-i6c732zbuum2 10/06/2014 10/06/2014 2.16.840.1.761450.4.391.11.26825 [facility] 61h47043-2812-8400-75b4-0z926qg65ik5 10/06/2014 10/06/2014 2.16.840.1.211744.4.391.11.10440 [facility] 6tc9i75k-0bd5-94c0-0ntm-2e6196jn2773 10/12/2014 10/12/2014 2.16.840.1.424118.4.391.11.77182 [facility] Unknown 8r8b295j-6x89-7923-p42h-6340y11840e2 10/12/2014 10/12/2014 2.16.840.1.221296.4.391.11.84269 [facility] Unknown 6qn700hv-u12k-751s-9y7z-k4gvcm81h7a6 10/12/2014 10/12/2014 2.16.840.1.396528.4.391.11.56693 [facility] Unknown 097n13z2-8eda-77u3-2q58-9lshh19u4b2u 10/12/2014 10/12/2014 2.16.840.1.589186.4.391.11.23558 [facility] 0h8v0m0u-6s89-1a8p-1lz9-3v3187j68523 10/12/2014 10/12/2014 2.16.840.1.469971.4.391.11.37473 [facility] Unknown 256f2y44-3095-6e1g-147m-904786u2iiy8 10/12/2014 10/12/2014 2.16.840.1.117718.4.391.11.99305 [facility] Unknown nzf329qq-bes1-71p2-t0g3-xqek1342034f 10/12/2014 10/12/2014 2.16.840.1.404199.4.391.11.19382 [facility] 55l8405s-50nc-35j4-um76-w1284q020ke7 10/12/2014 10/12/2014 2.16.840.1.431753.4.391.11.01292 [facility] Unknown 08218512-z9s2-269h-o5q8-d3309q5d164o 10/12/2014 10/12/2014 2.16.840.1.817922.4.391.11.53066 [facility] mbi8e88q-970j-8a18-i125-5zib046k6m5q 10/12/2014 10/12/2014 2.16.840.1.174355.4.391.11.66064 [facility] Unknown vd71o480-s838-2p9g-33j1-nmn299690i62 10/12/2014 10/12/2014 2.16.840.1.864618.4.391.11.20720 [facility] Unknown 9n538516-7b1u-6d8i-35u6-s85k1w44v214 10/12/2014 10/12/2014 2.16.840.1.797504.4.391.11.25764 [facility] t54208mg-s0d5-933g-100n-9101o7514m7i 10/12/2014 10/12/2014 2.16.840.1.300824.4.391.11.78169 [facility] Unknown vk1ra7r1-rp8u-0a6q-32qi-2n7hsrx0q958 10/12/2014 10/12/2014 2.16.840.1.688258.4.391.11.41468 [facility] 0j871n85-ch1s-98zz-m9k0-de47bl62c81p 10/12/2014 10/12/2014 2.16.840.1.735045.4.391.11.99380 [facility] Unknown 9n749x4p-6jy4-4fub-mu1m-qhjg6zf01ds6 10/12/2014 10/12/2014 2.16.840.1.872355.4.391.11.27978 [facility] 53j14m02-298o-982r-l5j1-04419p41ion1 10/12/2014 10/12/2014 2.16.840.1.352832.4.391.11.89400 [facility] 15w73p27-q909-6185-8h88-x2871i9t328n 10/12/2014 10/12/2014 2.16.840.1.682605.4.391.11.81616 [facility] w4kt2h95-9016-7v5i-9526-9x57t3mp6bm6 10/12/2014 10/12/2014 2.16.840.1.837775.4.391.11.11207 [facility] Unknown 7lkbpm7y-0273-47b9-6jji-0nrp1714qt27 10/12/2014 10/12/2014 2.16.840.1.745889.4.391.11.95183 [facility] 8065yf9d-2utz-723i-el38-52y7oz2a83cw 10/12/2014 10/12/2014 2.16.840.1.486568.4.391.11.09334 [facility] 6w27u4p8-4zk7-9z94-a266-zhu9385502s9 10/12/2014 10/12/2014 2.16.840.1.353468.4.391.11.14611 [facility] Unknown b46u8c34-c0y2-5dt3-g84l-lmi13hc6n78b 10/12/2014 10/12/2014 2.16.840.1.708376.4.391.11.31813 [facility] Unknown 09gvuu34-3804-446h-1466-00e41w23r82k 10/12/2014 10/12/2014 2.16.840.1.181868.4.391.11.03966 [facility] Unknown 6g6s6u2r-d84o-55ce-jz3y-jb7754h970yq 10/12/2014 10/12/2014 2.16.840.1.001079.4.391.11.84218 [facility] Unknown 2pa76797-qi5w-2245-t293-os100092ey85 10/12/2014 10/12/2014 2.16.840.1.374686.4.391.11.48614 [facility] Unknown 84398969-8g6m-2w1f-21j2-j594059f8855 10/12/2014 10/12/2014 2.16.840.1.776285.4.391.11.74776 [facility] Unknown 650lil47-p868-382g-wec0-o21v862o5805 10/12/2014 10/12/2014 2.16.840.1.199361.4.391.11.91078 [facility] Unknown om7lh480-98m2-7499-u973-88c5965nc05f 10/12/2014 10/12/2014 2.16.840.1.485617.4.391.11.50719 [facility] Unknown 0vmr7947-l8u9-3u99-241p-c065i8y02c13 10/12/2014 10/12/2014 2.16.840.1.184365.4.391.11.55587 [facility] 3nd2hnx1-s010-7115-m23t-02257300350u 10/12/2014 10/12/2014 2.16.840.1.223808.4.391.11.24115 [facility] sir0c70c-ly05-6x7j-49ui-4t5sz95o063n 10/12/2014 10/12/2014 2.16.840.1.264811.4.391.11.72666 [facility] n78p0j9r-1h38-0r5n-50p3-4y86e0069021 10/12/2014 10/12/2014 2.16.840.1.176467.4.391.11.49372 [facility] 922oi3uf-w87o-65bn-h078-9o149095zt7t 10/12/2014 10/12/2014 2.16.840.1.280856.4.391.11.75440 [facility] h487w52h-ilf5-5877-8ds4-w39c9g2314a9 10/12/2014 10/12/2014 2.16.840.1.554294.4.391.11.28634 [facility] 4c415589-n421-6261-2574-9k8z95v5o4fe 10/12/2014 10/12/2014 2.16.840.1.436464.4.391.11.36069 [facility] 2rv03ksc-7q5f-5951-8b31-57x3696kjyd0 10/12/2014 10/12/2014 2.16.840.1.587598.4.391.11.40152 [facility] a94kerk7-0z81-6l68-7761-l460723zd0i8 10/12/2014 10/12/2014 2.16.840.1.530403.4.391.11.01548 [facility] 0ks71q2h-yx97-1w6u-pmp4-u2z07z311561 10/12/2014 10/12/2014 2.16.840.1.795500.4.391.11.21909 [facility] gi961475-bvt9-5o8r-l7o3-44nz6o66wnip 10/12/2014 10/12/2014 2.16.840.1.855816.4.391.11.62802 [facility] Unknown 4405677a-qo61-3dz6-n3h7-9a69yl64au43 10/12/2014 10/12/2014 2.16.840.1.334891.4.391.11.36959 [facility] Unknown 8913857k-w989-0745-01zo-fev88h0996v7 10/12/2014 10/12/2014 2.16.840.1.668509.4.391.11.91881 [facility] r6y16ur0-bd17-7489-00rr-2956t798h777 10/12/2014 10/12/2014 2.16.840.1.818500.4.391.11.65374 [facility] u8530br7-y71n-5w1d-e60x-688ud00pct14 10/12/2014 10/12/2014 2.16.840.1.465490.4.391.11.49630 [facility] 0b788244-b727-8574-2o4y-5uhrjz12hn23 10/12/2014 10/12/2014 2.16.840.1.120492.4.391.11.55891 [facility] wi086vx9-qg9p-65xg-544n-688g9iy206f1 10/12/2014 10/12/2014 2.16.840.1.810762.4.391.11.09965 [facility] Unknown 290t8848-0kmg-87t3-5456-gw05z8882528 10/12/2014 10/12/2014 2.16.840.1.191570.4.391.11.16378 [facility] 7gv72534-7e32-99e1-9478-364238167536 10/12/2014 10/12/2014 2.16.840.1.569640.4.391.11.03186 [facility] Unknown 8s372b72-45a6-6nv9-814j-23y6xl44r1y9 10/12/2014 10/12/2014 2.16.840.1.601530.4.391.11.53121 [facility] Unknown 8804419s-7610-1i2d-lu99-513m875s5429 10/12/2014 10/12/2014 2.16.840.1.980515.4.391.11.33446 [facility] Unknown 117mlv2i-7d44-9147-u8oc-ij8g0gw4akr8 10/12/2014 10/12/2014 2.16.840.1.389791.4.391.11.18887 [facility] Unknown h320bl7e-475n-9450-n159-378mv00cq4a3 10/12/2014 10/12/2014 2.16.840.1.674134.4.391.11.81300 [facility] Unknown 4l96t624-ye19-64vd-6846-92q948hsufua 10/12/2014 10/12/2014 2.16.840.1.347860.4.391.11.93802 [facility] 17hg8bpa-3l09-5859-13a6-0os023j827n4 10/12/2014 10/12/2014 2.16.840.1.289184.4.391.11.17018 [facility] Unknown 92049w7k-r1op-4q9z-p421-d8b28l0a061i 10/12/2014 10/12/2014 2.16.840.1.651684.4.391.11.42364 [facility] qo3097by-441l-1l6k-2yvs-5914r77l84l2 10/12/2014 10/12/2014 2.16.840.1.941266.4.391.11.37137 [facility] Unknown 2a45q9y7-7e18-7513-k9l6-21164h53k3o6 10/12/2014 10/12/2014 2.16.840.1.681602.4.391.11.36434 [facility] Unknown 3163d9d5-zm68-6yk9-4xwq-7u92k8b59j0d 10/12/2014 10/12/2014 2.16.840.1.085904.4.391.11.22489 [facility] bq2c2zv5-186o-77pi-6793-v9j9nz431d97 10/12/2014 10/12/2014 2.16.840.1.468764.4.391.11.22665 [facility] Unknown g2jv10nq-2p22-5ki6-g158-t21a7c690b18 10/12/2014 10/12/2014 2.16.840.1.035959.4.391.11.55651 [facility] Unknown 985wv6d2-2r43-548m-7z64-be4dc14zwbcs 10/12/2014 10/12/2014 2.16.840.1.382219.4.391.11.10668 [facility] Unknown 286m3wg1-542k-4094-l22f-sfv9150e683x 10/12/2014 10/12/2014 2.16.840.1.997517.4.391.11.66862 [facility] Unknown 512726w2-4742-2050-664p-m7h96n002xh3 10/12/2014 10/12/2014 2.16.840.1.815634.4.391.11.62935 [facility] Unknown 419f1gm5-29nl-6ke7-um1u-f1na1f012wfr 10/12/2014 10/12/2014 2.16.840.1.289862.4.391.11.89233 [facility] Unknown 6k7233b1-7142-69ll-07nn-552k2y1p3olm 10/12/2014 10/12/2014 2.16.840.1.668738.4.391.11.62020 [facility] Unknown 758g7p43-p744-625g-hb53-7s4a5586929k 10/12/2014 10/12/2014 2.16.840.1.221452.4.391.11.06776 [facility] 37x2a9xr-4sq8-6om2-g872-3c2205i23979 10/12/2014 10/12/2014 2.16.840.1.924569.4.391.11.67734 [facility] fh21z13x-w9nl-9q46-w0yr-q43cj6fe7884 10/12/2014 10/12/2014 2.16.840.1.270726.4.391.11.30349 [facility] Unknown 4a22032o-7jr2-82go-t636-y47dh7n96e86 10/12/2014 10/12/2014 2.16.840.1.110718.4.391.11.76404 [facility] Unknown 623q93oa-3w99-5mr0-117g-2x507z198h32 10/12/2014 10/12/2014 2.16.840.1.675114.4.391.11.58043 [facility] 85p2p5ir-f63b-8688-1lb8-23i9u7233bz4 10/12/2014 10/12/2014 2.16.840.1.703088.4.391.11.68111 [facility] hw4pg426-9935-6458-knbv-a0378i6r9ds0 10/12/2014 10/12/2014 2.16.840.1.500532.4.391.11.67664 [facility] 0y4715lb-5g2c-6392-k4q7-3497p484n9m4 11/23/2014 11/23/2014 2.16.840.1.788414.4.391.11.73526 [facility] m21qe362-6573-343g-s488-9x7511112s24 11/23/2014 11/23/2014 2.16.840.1.964361.4.391.11.99023 [facility] 73186c27-iw7s-9991-7h98-5a43r94v7q7c 11/23/2014 11/23/2014 2.16.840.1.046947.4.391.11.36281 [facility] p145e3nn-4817-8dsu-3b0q-303of931jinc 11/23/2014 11/23/2014 2.16.840.1.755174.4.391.11.72698 [facility] b4jder1n-k234-8fnf-z6s7-w0025hg171r1 11/23/2014 11/23/2014 2.16.840.1.738463.4.391.11.85821 [facility] sa15239m-23d4-8zps-4561-4140sv0r2153 11/23/2014 11/23/2014 2.16.840.1.344747.4.391.11.65326 [facility] 17s0a85x-t0k4-81ji-r62b-6443f3u28319 11/23/2014 11/23/2014 2.16.840.1.525294.4.391.11.14095 [facility] 5382882k-wn05-77g6-p5rt-7y17pqr250m5 11/23/2014 11/23/2014 2.16.840.1.485825.4.391.11.49336 [facility] Unknown 366z4r6h-2j27-5529-vw09-q85qc74d3b26 11/23/2014 11/23/2014 2.16.840.1.767655.4.391.11.75708 [facility] 1u556654-395q-9p81-3i89-lvf0k8g5k0nf 11/23/2014 11/23/2014 2.16.840.1.468196.4.391.11.96744 [facility] 755n3142-25o6-0l2o-om6w-08878s8321x4 11/23/2014 11/23/2014 2.16.840.1.481063.4.391.11.10598 [facility] 7q2fv32a-y8sr-648b-7ab6-524019160t14 11/23/2014 11/23/2014 2.16.840.1.478026.4.391.11.39970 [facility] Unknown b314313n-73yq-31l3-463y-y88z4j582w82 11/23/2014 11/23/2014 2.16.840.1.897897.4.391.11.56462 [facility] 9599b28i-c7w6-638j-a8tv-909ts537664t 11/23/2014 11/23/2014 2.16.840.1.785754.4.391.11.72368 [facility] 3cy49n9n-9nb6-627x-l8o2-83h422647161 11/23/2014 11/23/2014 2.16.840.1.752333.4.391.11.16028 [facility] Unknown 9kv7991b-15ys-9pwb-7350-o3b815vp98n1 11/23/2014 11/23/2014 2.16.840.1.737611.4.391.11.95813 [facility] Unknown 3h0mp553-4hv6-3790-8iqf-1bv8t2a8tper 11/23/2014 11/23/2014 2.16.840.1.460783.4.391.11.17086 [facility] Unknown 47k7zq66-2158-7572-i12k-61c0p6i98173 11/23/2014 11/23/2014 2.16.840.1.979834.4.391.11.56400 [facility] Unknown 9792ah82-27ka-2z29-0cm6-88379q1232zq 11/23/2014 11/23/2014 2.16.840.1.107329.4.391.11.41516 [facility] Unknown 29g1jpb2-769z-1501-7q40-10w7h7548dst 11/23/2014 11/23/2014 2.16.840.1.957442.4.391.11.65094 [facility] Unknown 766j15x0-v613-0aur-jmh3-r0lqq46g0m7x 11/23/2014 11/23/2014 2.16.840.1.236246.4.391.11.87182 [facility] Unknown 038g1rz8-ja37-7936-g4q4-vb556s620885 11/23/2014 11/23/2014 2.16.840.1.165267.4.391.11.06054 [facility] Unknown 41b42922-9354-5v88-5565-585f8mm9916z 11/23/2014 11/23/2014 2.16.840.1.776910.4.391.11.01413 [facility] Unknown 37clmu8a-25s9-6654-3036-aa223c76d340 11/23/2014 11/23/2014 2.16.840.1.423994.4.391.11.97558 [facility] Unknown n20rl3q4-54k6-5d3w-zebb-i8r1l2no4402 11/23/2014 11/23/2014 2.16.840.1.201591.4.391.11.14885 [facility] Unknown t48559j3-52n4-4z84-f5n7-31528jb9wr43 11/23/2014 11/23/2014 2.16.840.1.307939.4.391.11.87775 [facility] Unknown 08689ok0-9c55-7wi0-4br0-4zur978js2vk 11/23/2014 11/23/2014 2.16.840.1.891437.4.391.11.44662 [facility] Unknown 7sc8vbo5-iea1-6b5v-30g8-x2n8dfq371q2 11/23/2014 11/23/2014 2.16.840.1.595145.4.391.11.29533 [facility] Unknown 7w0b17sh-3p36-833b-2ro2-4c1019e1s5uw 11/23/2014 11/23/2014 2.16.840.1.625323.4.391.11.87278 [facility] Unknown 02m25x3t-g5a7-2u20-9510-la57z3i3q8q3 11/23/2014 11/23/2014 2.16.840.1.613876.4.391.11.15234 [facility] Unknown 266q21gq-3wk0-43gp-jx11-m98421927qs4 11/23/2014 11/23/2014 2.16.840.1.572311.4.391.11.17197 [facility] Unknown 389uq146-24t4-21oo-tyr3-zvv67hkgk6uy 11/23/2014 11/23/2014 2.16.840.1.329829.4.391.11.89169 [facility] Unknown 659l6d79-ys9t-635x-9i77-w1yl59o8i5o5 11/23/2014 11/23/2014 2.16.840.1.555624.4.391.11.53308 [facility] Unknown 2ad07f7n-i165-1574-48n2-6378uf40012k 11/23/2014 11/23/2014 2.16.840.1.501129.4.391.11.50139 [facility] Unknown o25ih27h-3826-8lsb-a63b-2035cm2ms68g 12/09/2014 12/09/2014 2.16.840.1.191135.4.391.11.20602 [facility] Unknown 4g10nz32-wc21-8764-l4z9-998512k5jo8t 12/09/2014 12/09/2014 2.16.840.1.852675.4.391.11.64554 [facility] Unknown 0x38u7j1-3y33-65o0-9d6l-jq6sc948424j 12/09/2014 12/09/2014 2.16.840.1.870113.4.391.11.50319 [facility] Unknown q03794nk-a0d4-0830-cv5x-8548ti0xzs00 12/09/2014 12/09/2014 2.16.840.1.980752.4.391.11.33832 [facility] Unknown 983b6f49-i1j7-7c0g-8g9y-59542e1ea844 12/09/2014 12/09/2014 2.16.840.1.579281.4.391.11.95991 [facility] Unknown 420k974r-ao99-1pp7-9579-8t8b761r2e9c 12/09/2014 12/09/2014 2.16.840.1.770739.4.391.11.21890 [facility] Unknown 3qrhr073-l751-61yc-zw97-864j01z250d1 12/09/2014 12/09/2014 2.16.840.1.993409.4.391.11.48696 [facility] Unknown 4f7d53bc-3x19-9o0q-d182-s24u799osf59 12/09/2014 12/09/2014 2.16.840.1.594633.4.391.11.23107 [facility] Unknown 92w1667f-y9ge-45xv-8z3e-18e306c738yu 12/09/2014 12/09/2014 2.16.840.1.404665.4.391.11.23729 [facility] Unknown 428jxh46-05k2-2696-1435-7nei46598s17 12/09/2014 12/09/2014 2.16.840.1.129486.4.391.11.07868 [facility] Unknown 059y3y89-qqx0-35g5-bbtj-4cjq311x3u0b 12/09/2014 12/09/2014 2.16.840.1.760929.4.391.11.12961 [facility] Unknown 7v88zpa7-z94k-7v5o-c052-2v09gt9tw2wk 12/09/2014 12/09/2014 2.16.840.1.151849.4.391.11.92862 [facility] Unknown [id number]-6y0x-pp39ep65i063 12/09/2014 12/09/2014 2.16.840.1.247264.4.391.11.02895 [facility] Unknown p12g03ru-q4tb-7pan-7f83-7nt79f5w5je2 12/09/2014 12/09/2014 2.16.840.1.064301.4.391.11.27559 [facility] Unknown 3715zgc5-2945-714r-2537-56q4570765x7 12/09/2014 12/09/2014 2.16.840.1.597502.4.391.11.01261 [facility] Unknown 7h33g548-2c89-425h-6tlb-650pkm733w0q 12/09/2014 12/09/2014 2.16.840.1.712556.4.391.11.76581 [facility] Unknown [id number]-52i6-1g32-q5v3-04972404976z 12/09/2014 12/09/2014 2.16.840.1.972620.4.391.11.77488 [facility] Unknown 34k372yz-988v-2suq-h4dg-0h2x03cuv061 12/09/2014 12/09/2014 2.16.840.1.906367.4.391.11.84357 [facility] Unknown [id number]-71vj-6e54-e1ki-6bv8o05833w6 12/09/2014 12/09/2014 2.16.840.1.188105.4.391.11.96982 [facility] Unknown 00txj2e2-6y0m-5k4h-7239-60qn63z49449 12/09/2014 12/09/2014 2.16.840.1.967855.4.391.11.57543 [facility] Unknown [id number]-t062-99r0-ld83-9b4f3hkt483n 12/09/2014 12/09/2014 2.16.840.1.390981.4.391.11.31973 [facility] Unknown [id number]-sb3zu777ddo9 12/09/2014 12/09/2014 2.16.840.1.213744.4.391.11.98933 [facility] Unknown 74b608g1-420h-5410-np51-0n188173209j 12/09/2014 12/09/2014 2.16.840.1.760416.4.391.11.44366 [facility] Unknown 65v1068o-799z-5sra-m3t6-2821xow3047d 12/09/2014 12/09/2014 2.16.840.1.518807.4.391.11.48045 [facility] Unknown 9rn42849-s8z6-678h-f24g-jida65p4gm4d 12/09/2014 12/09/2014 2.16.840.1.286059.4.391.11.36769 [facility] Unknown 5pjg5xms-14mm-660r-p63g-249t670t1f5f 12/09/2014 12/09/2014 2.16.840.1.333093.4.391.11.54088 [facility] Unknown y84g6r6l-fq47-77p0-n083-qs6037803ow5 12/09/2014 12/09/2014 2.16.840.1.422684.4.391.11.37102 [facility] Unknown qc98j898-ows3-78jr-19z4-36mut60968ll 12/09/2014 12/09/2014 2.16.840.1.766606.4.391.11.46184 [facility] Unknown 0e7i90g3-101w-6371-f2i9-9294w4d6y536 12/09/2014 12/09/2014 2.16.840.1.313115.4.391.11.56541 [facility] Unknown 22884l12-mu5n-9705-6541-f62tne263qpc 12/09/2014 12/09/2014 2.16.840.1.020030.4.391.11.52032 [facility] Unknown e9z9k706-a610-6jkt-126u-icq65f02626m 12/09/2014 12/09/2014 2.16.840.1.211721.4.391.11.20104 [facility] Unknown hcou62vp-4540-26y8-c27e-n136251l5315 12/09/2014 12/09/2014 2.16.840.1.801186.4.391.11.64008 [facility] Unknown [id number]-kd5v-0772-k289-p4d4x8978k22 12/09/2014 12/09/2014 2.16.840.1.593596.4.391.11.41078 [facility] Unknown 81540q1m-3537-7061-l373-p7968e7h57d4 12/15/2014 12/15/2014 2.16.840.1.335172.4.391.11.23770 [facility] Unknown dcy7up36-u635-6739-q16v-8j903x1jn91v 12/15/2014 12/15/2014 2.16.840.1.669996.4.391.11.14077 [facility] Unknown 00w5m232-k605-1762-lm6z-01g0xe9j1ajz 12/15/2014 12/15/2014 2.16.840.1.308997.4.391.11.88780 [facility] Unknown k9mrw0d2-78ks-2542-dk36-bauz23469770 12/15/2014 12/15/2014 2.16.840.1.430877.4.391.11.08303 [facility] Unknown [id number]-f949-45j3-n903-4777y9q92793 12/15/2014 12/15/2014 2.16.840.1.542320.4.391.11.52242 [facility] Unknown 12s08fm4-6050-4kyw-92r5-yn8127tpmyz9 12/15/2014 12/15/2014 2.16.840.1.848927.4.391.11.95906 [facility] Unknown 9902d572-0704-9723-6z91-b69a3138fk1s 12/15/2014 12/15/2014 2.16.840.1.800775.4.391.11.98274 [facility] Unknown 6pqc7h28-gxr3-6424-7728-3074q8138930 12/15/2014 12/15/2014 2.16.840.1.117661.4.391.11.01955 [facility] Unknown 7r96q385-p8y2-1jrs-j775-55pp0x700k1a 12/15/2014 12/15/2014 2.16.840.1.287825.4.391.11.43429 [facility] Unknown 449q69db-8pb0-4624-6110-7b30p9222a22 12/15/2014 12/15/2014 2.16.840.1.053359.4.391.11.09697 [facility] Unknown 87z3h53p-2793-2ess-e6a5-8587974rvg09 12/15/2014 12/15/2014 2.16.840.1.903152.4.391.11.58767 [facility] Unknown o0e3qx17-z326-6liq-6msy-0215t6my3f6o 12/15/2014 12/15/2014 2.16.840.1.907427.4.391.11.96154 [facility] Unknown 727a120n-0h68-0849-05k8-929051540g6s 12/15/2014 12/15/2014 2.16.840.1.885240.4.391.11.22314 [facility] Unknown 5t9959ff-20rt-0332-2t60-o72p3y4bi598 12/15/2014 12/15/2014 2.16.840.1.871476.4.391.11.84898 [facility] Unknown 239eh350-leyd-7k39-m69c-bp63k9j1z13e 12/15/2014 12/15/2014 2.16.840.1.759399.4.391.11.20258 [facility] Unknown 373988t5-73p2-9016-6559-5w0cz6n95csv 12/15/2014 12/15/2014 2.16.840.1.281070.4.391.11.34707 [facility] Unknown 75l0254b-4v25-5vq7-g0s0-00rc376o2214 12/15/2014 12/15/2014 2.16.840.1.901047.4.391.11.73212 [facility] Unknown 7t3zu675-40u1-1310-3110-035ti01s38y7 12/15/2014 12/15/2014 2.16.840.1.068559.4.391.11.62021 [facility] Unknown m6f651o5-0ti6-5594-r451-7r67vd4sjml8 12/15/2014 12/15/2014 2.16.840.1.100101.4.391.11.64596 [facility] Unknown 0l0294xu-l44r-09q4-a603-y9288xy19d02 12/15/2014 12/15/2014 2.16.840.1.745900.4.391.11. [facility] Unknown 8k382k62-38hr-973v-ag4v-h48ny569xs50 12/15/2014 12/15/2014 2.16.840.1.052058.4.391.11. [facility] Unknown 4f093l09-3h2h-4a7g-ffwy-06mw1x49u6ld 12/15/2014 12/15/2014 2.16.840.1.593284.4.391.11. [facility] Unknown 60n4k851-7867-2976-l941-i9171o997s73 12/15/2014 12/15/2014 2.16.840.1.583112.4.391.11. [facility] Unknown k8z64nt4-e08s-3s26-vnk3-386oe91psw9l 12/15/2014 12/15/2014 2.16.840.1.351098.4.391.11.79565 [facility] Unknown e70lfm1z-idpo-1k86-fm02-58381ptzq9ei 12/15/2014 12/15/2014 2.16.840.1.871953.4.391.11.05190 [facility] Unknown 97j6irjg-7x2l-5tg0-ka2j-2iw597bh7j2e 12/15/2014 12/15/2014 2.16.840.1.401899.4.391.11.79601 [facility] Unknown 4m32k113-cip0-4727-d6jx-603c01477w6v 12/15/2014 12/15/2014 2.16.840.1.816056.4.391.11.16875 [facility] Unknown 34q918d6-ihqk-4f32-gpmh-8t2iz1w99d37 12/15/2014 12/15/2014 2.16.840.1.605783.4.391.11.94438 [facility] Unknown or0i6k3b-68l4-3347-ler9-772j03667ul9 12/15/2014 12/15/2014 2.16.840.1.683962.4.391.11.47393 [facility] Unknown i4d885g3-i7im-801c-l67j-1tp70i863y43 12/15/2014 12/15/2014 2.16.840.1.173026.4.391.11.09806 [facility] Unknown 77er1375-2k34-13nd-9737-84ai21x7579y 12/15/2014 12/15/2014 2.16.840.1.892323.4.391.11.34417 [facility] Unknown o21zol24-14pp-469m-1q3h-n5r10209m554 12/15/2014 12/15/2014 2.16.840.1.675318.4.391.11.57716 [facility] Unknown u93s20z4-9ts1-3t68-350r-q5k5l912b655 12/15/2014 12/15/2014 2.16.840.1.226621.4.391.11.15659 [facility] Unknown 743g3588-5m19-153u-3291-t82b1464i1x5 12/21/2014 12/21/2014 2.16.840.1.517653.4.391.11.20148 [facility] Unknown 4s8te204-63lq-7363-37w4-2ke4z5femi83 12/21/2014 12/21/2014 2.16.840.1.907899.4.391.11.50727 [facility] Unknown s72q32mw-9855-6120-6boi-3m5o58n68076 12/21/2014 12/21/2014 2.16.840.1.194258.4.391.11.82731 [facility] Unknown 69bv2525-bdb3-8z38-6too-8k307h0mh1ve 12/21/2014 12/21/2014 2.16.840.1.443993.4.391.11.39813 [facility] Unknown f7e7f3mx-9744-1135-f3y0-l4b8c237as92 12/21/2014 12/21/2014 2.16.840.1.292741.4.391.11.15637 [facility] Unknown w1806ehk-7126-8123-8t80-w8tfg59975l4 12/21/2014 12/21/2014 2.16.840.1.576899.4.391.11. [facility] Unknown 8e9x4x9i-z545-3v0p-8hua-134l0g8830ks 12/21/2014 12/21/2014 2.16.840.1.996878.4.391.11.46409 [facility] Unknown 016ox1sb-j730-716i-e76d-3758g35y9636 12/21/2014 12/21/2014 2.16.840.1.187114.4.391.11.74220 [facility] Unknown 58he7520-hm21-5u6c-8rv2-3n22is9u3g6j 12/21/2014 12/21/2014 2.16.840.1.559095.4.391.11.78986 [facility] Unknown 7uw55gy3-i241-8slt-u72v-8bm6184d459p 12/21/2014 12/21/2014 2.16.840.1.843397.4.391.11.44694 [facility] Unknown 61v08aul-i5o9-4zs0-p80f-tipsc017ats0 12/21/2014 12/21/2014 2.16.840.1.327511.4.391.11.83970 [facility] Unknown n4v32984-9115-2528-157f-07x3875b31x2 12/21/2014 12/21/2014 2.16.840.1.565163.4.391.11.83427 [facility] Unknown f3e1016w-98wx-83z0-86z1-a330f6084411 12/21/2014 12/21/2014 2.16.840.1.970388.4.391.11.78463 [facility] Unknown ca369n2n-3sp6-7969-b42y-412tl29so418 12/21/2014 12/21/2014 2.16.840.1.128217.4.391.11.13061 [facility] Unknown 17z46066-r2u5-7090-w800-f7g509x8ps86 12/21/2014 12/21/2014 2.16.840.1.673495.4.391.11.25831 [facility] Unknown f5n62j50-v1h0-9545-853x-g2g742140217 12/21/2014 12/21/2014 2.16.840.1.315738.4.391.11.22932 [facility] Unknown 97j32y1p-6420-4f3q-8pc4-32m0c9r19fx9 12/21/2014 12/21/2014 2.16.840.1.276278.4.391.11.73466 [facility] Unknown 8463dipy-3318-643r-6gh2-2576iu30045o 12/21/2014 12/21/2014 2.16.840.1.689106.4.391.11.64494 [facility] Unknown w928ay00-584k-8895-vue5-32a12201914w 12/21/2014 12/21/2014 2.16.840.1.883905.4.391.11.29745 [facility] Unknown o74510fp-3249-6957-jn94-w10gji3i5g96 12/21/2014 12/21/2014 2.16.840.1.730370.4.391.11.25576 [facility] Unknown 3vv4qg8z-79v2-7hz9-5809-zw0n4q76p1k5 12/21/2014 12/21/2014 2.16.840.1.400151.4.391.11.31368 [facility] Unknown 3xxc6g57-e3wv-25y9-gf73-035c4s341jt9 12/21/2014 12/21/2014 2.16.840.1.037974.4.391.11.00135 [facility] Unknown 72tq4q32-960q-9d76-fpym-7825289173h2 12/21/2014 12/21/2014 2.16.840.1.051277.4.391.11.96894 [facility] Unknown 1lj10p8a-n2n2-4114-9573-86u2ac1yv640 12/21/2014 12/21/2014 2.16.840.1.234400.4.391.11. [facility] Unknown 519pkisp-k2a3-64uxt1r0-83jj-8287-w38a3i86r304 12/21/2014 12/21/2014 2.16.840.1.092827.4.391.11.07303 [facility] Unknown 936dm128-736m-6o36-2e07-5075b0884256 12/21/2014 12/21/2014 2.16.840.1.001107.4.391.11.88353 [facility] Unknown fl9499k2-v70m-8ug9-4l12-528v6ib4q6w2 12/21/2014 12/21/2014 2.16.840.1.948124.4.391.11.70230 [facility] Unknown 54gz1401-x483-50cb-re75-7197p6r7bh01 12/21/2014 12/21/2014 2.16.840.1.212462.4.391.11.08720 [facility] Unknown mn9100t7-g59d-1r30-8wi7-wi2swx6m50n2 12/21/2014 12/21/2014 2.16.840.1.998011.4.391.11.25846 [facility] Unknown zu3ak400-4eht-9136-4390-6f49876zq9xg 12/21/2014 12/21/2014 2.16.840.1.210048.4.391.11.64640 [facility] Unknown q041jann-17za-2869-94hf-d587842l64d4 12/21/2014 12/21/2014 2.16.840.1.521226.4.391.11.44355 [facility] Unknown kp482llf-ei12-5rbk-31ah-euyv9328p0z3 12/21/2014 12/21/2014 2.16.840.1.606721.4.391.11.16767 [facility] Unknown x06aws87-25e5-5d9w-y2r6-i3935fv3g50h 12/21/2014 12/21/2014 2.16.840.1.899160.4.391.11.36944 [facility] Unknown 0m975262-6yff-088a-78y6-86d16yy93y84 12/21/2014 12/21/2014 2.16.840.1.989426.4.391.11.31982 [facility] Unknown 346443rr-1o2p-500q-7mn3-n5bbk8z3858p 12/21/2014 12/21/2014 2.16.840.1.397630.4.391.11.72957 [facility] Unknown 25918n01-85m7-3dl0-241x-92576p380030 12/21/2014 12/21/2014 2.16.840.1.832129.4.391.11.92362 [facility] Unknown 9qgq8498-3q01-42c4-x2yb-ci9w9789a979 12/21/2014 12/21/2014 2.16.840.1.453241.4.391.11.28696 [facility] Unknown yortn23k-c14g-831r-87e6-399c9357n44u 12/21/2014 12/21/2014 2.16.840.1.269719.4.391.11.75833 [facility] Unknown 77y6oqh6-cik8-6286-g3t1-84tpmi0x4pun 12/21/2014 12/21/2014 2.16.840.1.524727.4.391.11.34058 [facility] Unknown ts44vwvd-v4qw-97fc-1158-0uu83p1kx6ww 12/21/2014 12/21/2014 2.16.840.1.447885.4.391.11.09240 [facility] Unknown 07bq2269-888o-57n3-5oj1-158168t52h48 12/21/2014 12/21/2014 2.16.840.1.274209.4.391.11.74476 [facility] Unknown 2a4a6027-b864-446n-v084-42gksy361bhm 12/21/2014 12/21/2014 2.16.840.1.566884.4.391.11.35591 [facility] Unknown y98446f2-b69o-21m1-6235-2mtd6k712292 12/21/2014 12/21/2014 2.16.840.1.677097.4.391.11.70253 [facility] Unknown 2il3987t-je38-5mof-67u0-k7231691039k 12/21/2014 12/21/2014 2.16.840.1.084638.4.391.11.06847 [facility] Unknown ky259640-7725-31j0-95yx-24j25m670c60 12/21/2014 12/21/2014 2.16.840.1.680092.4.391.11.82705 [facility] Unknown 38774m6w-7792-21w5-qeu5-77tl4342l9b6 12/21/2014 12/21/2014 2.16.840.1.223576.4.391.11.53136 [facility] Unknown 6b89463j-6823-89c2-aq96-93675169a702 12/21/2014 12/21/2014 2.16.840.1.208600.4.391.11.04923 [facility] Unknown 02z15w60-63ly-01hh-5733-362qa4u247p9 12/21/2014 12/21/2014 2.16.840.1.015897.4.391.11.96353 [facility] Unknown 01u0115z-05e5-560v-jnh5-h4s1d6ek5570 12/21/2014 12/21/2014 2.16.840.1.720282.4.391.11.84230 [facility] Unknown o5so77t0-353t-9v56-a31d-39be17dk94t8 12/21/2014 12/21/2014 2.16.840.1.686517.4.391.11.64206 [facility] Unknown rxc99931-x1q9-9nl1-g90r-l28vj5t9qe51 12/21/2014 12/21/2014 2.16.840.1.461469.4.391.11.54039 [facility] Unknown ycq56ame-z764-37g0-n295-4mp42460tyz7 12/21/2014 12/21/2014 2.16.840.1.597614.4.391.11.13315 [facility] Unknown 562w641l-2102-7f36-a21d-0ty12c79pil4 12/21/2014 12/21/2014 2.16.840.1.533936.4.391.11.90515 [facility] Unknown v0969w45-140w-1271-yz61-2203e2tq4b66 12/21/2014 12/21/2014 2.16.840.1.495473.4.391.11.55973 [facility] Unknown 54832m3g-3832-7b51-xn84-280vqei2739t 12/21/2014 12/21/2014 2.16.840.1.830620.4.391.11.43980 [facility] Unknown 273a2s13-2806-7q08-bc19-fu5axw6z0fe7 12/21/2014 12/21/2014 2.16.840.1.655262.4.391.11.20245 [facility] Unknown w243034o-6s10-4723-447h-f040206f58y1 12/21/2014 12/21/2014 2.16.840.1.812921.4.391.11.45456 [facility] Unknown 3082x18v-5860-030d-e848-r81h591v5g0a 12/21/2014 12/21/2014 2.16.840.1.168768.4.391.11.09494 [facility] Unknown zg2z7vpz-19h3-179i-n615-79i5cwu8w554 12/21/2014 12/21/2014 2.16.840.1.960569.4.391.11.95564 [facility] Unknown vmo61g0a-314a-8d67-4m7f-518371046017 12/21/2014 12/21/2014 2.16.840.1.840866.4.391.11.29579 [facility] Unknown pn8j20wo-1582-4979-129v-617s03613962 12/21/2014 12/21/2014 2.16.840.1.505215.4.391.11.74526 [facility] Unknown s90uz1j5-0vs9-66j3-2125-m9b7gf08vd90 12/21/2014 12/21/2014 2.16.840.1.068752.4.391.11.22338 [facility] Unknown 591ume8f-f13f-04r8-8f7z-c49uz913f1h8 12/21/2014 12/21/2014 2.16.840.1.244349.4.391.11.31531 [facility] Unknown 308i71q4-qi78-69vo-7226-k5964jv2536o 12/21/2014 12/21/2014 2.16.840.1.286271.4.391.11.46722 [facility] Unknown zgqv40q0-5dw4-4j46-50x4-x76n9o5q4h47 12/21/2014 12/21/2014 2.16.840.1.560581.4.391.11.70575 [facility] Unknown 74i10600-8c83-1r2z-d146-18467r378116 12/21/2014 12/21/2014 2.16.840.1.260770.4.391.11.17927 [facility] Unknown 178ay0xw-m82r-8f21-gow4-6p4e69d802i8 01/05/2015 01/05/2015 2.16.840.1.583625.4.391.11.07418 [facility] Unknown 32cs9q9a-4670-613p-lt62-863d1z5k928l 01/05/2015 01/05/2015 2.16.840.1.741173.4.391.11.41145 [facility] Unknown 41782ea4-46t2-8s0d-e9hg-319m6887vc83 01/05/2015 01/05/2015 2.16.840.1.657050.4.391.11.23851 [facility] Unknown t80tf7ik-615a-5e22-x39q-3s799580q94q 01/05/2015 01/05/2015 2.16.840.1.469693.4.391.11.17870 [facility] Unknown 3003562q-95ug-173w-b3n1-y6j17h1s2902 01/05/2015 01/05/2015 2.16.840.1.066722.4.391.11.81436 [facility] Unknown 6x4gfm4f-ru3i-489j-635j-0h37w58l969y 01/05/2015 01/05/2015 2.16.840.1.597289.4.391.11.92914 [facility] Unknown 9qfr5u8y-t226-9935-636o-8512354327f2 01/05/2015 01/05/2015 2.16.840.1.737210.4.391.11.58894 [facility] Unknown 40se31z1-b1b5-2y91-324i-6j908525w02t 01/05/2015 01/05/2015 2.16.840.1.219097.4.391.11.26891 [facility] Unknown d40a6244-6230-6427-o84n-4zq72h72f33l 01/05/2015 01/05/2015 2.16.840.1.584466.4.391.11.00612 [facility] Unknown 5r2o39ht-5r0g-4k56-z154-jb7ml67o5z09 01/05/2015 01/05/2015 2.16.840.1.271602.4.391.11.45258 [facility] Unknown 170u8981-374e-92mt-x8a4-437u5x3lk4cs 01/05/2015 01/05/2015 2.16.840.1.059225.4.391.11.80467 [facility] Unknown a8ir76s4-9ih0-4211-583b-256906r86164 01/05/2015 01/05/2015 2.16.840.1.488859.4.391.11.41714 [facility] Unknown 0079p93j-k074-127z-r0n5-676t8bue5517 01/05/2015 01/05/2015 2.16.840.1.748392.4.391.11.02467 [facility] Unknown 3z8d42s5-2kl1-39rf-8804-1300xw3l5dz1 01/05/2015 01/05/2015 2.16.840.1.111503.4.391.11.84466 [facility] Unknown 692596sk-5g02-5vd8-04vy-19732s19x239 01/05/2015 01/05/2015 2.16.840.1.917242.4.391.11.41502 [facility] Unknown 0m81gb54-a675-0r63-4v3o-8840638d1373 01/05/2015 01/05/2015 2.16.840.1.083683.4.391.11.63996 [facility] Unknown a85pyykw-f20o-5k43-cu4d-u5ddcd665b94 01/05/2015 01/05/2015 2.16.840.1.825018.4.391.11.03340 [facility] Unknown 9fd8iuhv-38m0-15x8-dzy0-41l86xlozq25 01/05/2015 01/05/2015 2.16.840.1.223169.4.391.11.15265 [facility] Unknown 0y0169f9-dp8p-9323-m846-6e107po684sd 01/05/2015 01/05/2015 2.16.840.1.663498.4.391.11.22048 [facility] Unknown uw4mbu85-5370-26io-o41p-15zm7w553ll0 01/05/2015 01/05/2015 2.16.840.1.449786.4.391.11.92897 [facility] Unknown 04hx00vt-lk80-4s79-x654-97166py3c6z8 01/05/2015 01/05/2015 2.16.840.1.257939.4.391.11.67849 [facility] Unknown 376d6567-99a6-2957-o3p8-a9k19m16zv29 01/05/2015 01/05/2015 2.16.840.1.611014.4.391.11.13098 [facility] Unknown 74gg1p0m-8749-5p29-2a81-2ls674cv870h 01/05/2015 01/05/2015 2.16.840.1.531606.4.391.11.76762 [facility] Unknown g5r2uo48-1p9t-9732-6mb7-4r1dh415yca5 01/05/2015 01/05/2015 2.16.840.1.310818.4.391.11.97734 [facility] Unknown 9eg90677-wyb1-29x7-6906-31n744q70321 01/05/2015 01/05/2015 2.16.840.1.098148.4.391.11.44845 [facility] Unknown s4y57z03-2p37-3vfo-i018-10166q5tz181 01/05/2015 01/05/2015 2.16.840.1.099713.4.391.11.70506 [facility] Unknown rc4vktio-b8w2-7t5e-d130-3v58t6836a55 01/05/2015 01/05/2015 2.16.840.1.300971.4.391.11.80497 [facility] Unknown 01663n3x-43h9-6c28-tu43-7288phr8768c 01/05/2015 01/05/2015 2.16.840.1.027643.4.391.11.61741 [facility] Unknown 4771r359-6438-66xy-392b-206b788dv01h 01/05/2015 01/05/2015 2.16.840.1.090641.4.391.11.55069 [facility] Unknown z30f4iu3-312t-6vae-3346-k5e183s54ubj 01/05/2015 01/05/2015 2.16.840.1.890409.4.391.11.22077 [facility] Unknown 6n08t24m-8c6c-47h0-xjw1-i1novp32d3ho 01/05/2015 01/05/2015 2.16.840.1.315038.4.391.11.47834 [facility] Unknown 32qbn791-x6h3-64c6-3ti4-6pu8269180ts 01/07/2015 01/07/2015 2.16.840.1.109612.4.391.11.67995 [facility] Unknown 30630077-4m01-1f9m-232a-712088f84jl3 01/07/2015 01/07/2015 2.16.840.1.329240.4.391.11.81430 [facility] Unknown 7k6gd392-ho36-58bb-p43r-47oqdt7zv670 01/07/2015 01/07/2015 2.16.840.1.208198.4.391.11.44910 [facility] Unknown 35awwgz1-eaj2-8dp0-u495-40r3f359o2ss 01/07/2015 01/07/2015 2.16.840.1.024423.4.391.11.18519 [facility] Unknown 1durm329-420u-31r5-psj9-2k20u5m429a8 01/07/2015 01/07/2015 2.16.840.1.754289.4.391.11.10384 [facility] Unknown 74302fs1-u24j-8263-sq1j-lsz4fj39y867 01/07/2015 01/07/2015 2.16.840.1.080687.4.391.11.53414 [facility] Unknown i209206h-4zl8-8f8j-q195-ae9d4a1c3e42 01/07/2015 01/07/2015 2.16.840.1.607560.4.391.11.80714 [facility] Unknown 1gp33231-c5f7-2826-hme4-09g9119h8wyj 01/07/2015 01/07/2015 2.16.840.1.043097.4.391.11.60806 [facility] Unknown 1306nslz-r5mh-8889z7wf-7893-467t-5w92m9te97h5 01/07/2015 01/07/2015 2.16.840.1.314353.4.391.11.38761 [facility] Unknown 318c67kk-r84l-4j88-m0c6-pr7n6x10000p 01/07/2015 01/07/2015 2.16.840.1.809641.4.391.11.49275 [facility] Unknown 48r9u33n-542b-934f-s313-pg7e065187s9 01/07/2015 01/07/2015 2.16.840.1.779129.4.391.11.77834 [facility] Unknown [id number] 01/07/2015 01/07/2015 2.16.840.1.857344.4.391.11.63826 [facility] Unknown [id number]-[id number]-[id number] 01/07/2015 01/07/2015 2.16.840.1.824474.4.391.11.59469 [facility] Unknown [id number]-3w2i-[id number] 01/07/2015 01/07/2015 2.16.840.1.522802.4.391.11.35594 [facility] Unknown [id number] 01/07/2015 01/07/2015 2.16.840.1.184284.4.391.11.02368 [facility] Unknown [id number]-[id number] 01/07/2015 01/07/2015 2.16.840.1.371623.4.391.11.08272 [facility] Unknown [id number]-wo0g-5966szo9s8d3 01/07/2015 01/07/2015 2.16.840.1.557916.4.391.11.59851 [facility] Unknown [id number]8iaj6q88k8 01/07/2015 01/07/2015 2.16.840.1.172445.4.391.11.08803 [facility] Unknown [id number] 01/07/2015 01/07/2015 2.16.840.1.243378.4.391.11.12199 [facility] Unknown [id number]-384e-[id number] 01/07/2015 01/07/2015 2.16.840.1.097160.4.391.11.46919 [facility] Unknown [id number] 01/07/2015 01/07/2015 2.16.840.1.903117.4.391.11.25644 [facility] Unknown [id number] 01/07/2015 01/07/2015 2.16.840.1.851133.4.391.11.05378 [facility] Unknown [id number] 01/07/2015 01/07/2015 2.16.840.1.315383.4.391.11.44414 [facility] Unknown [id number] 01/07/2015 01/07/2015 2.16.840.1.885942.4.391.11.08654 [facility] Unknown [id number]-sx1c-3365-m25j-13th56v3hitq 01/07/2015 01/07/2015 2.16.840.1.479350.4.391.11.87900 [facility] Unknown [id number]-ybjr-313a-7lz4-c8u35j6sy50g 01/07/2015 01/07/2015 2.16.840.1.760034.4.391.11.58065 [facility] Unknown [id number]-rxx6-0hp6-7751-trufcp69g5b9 01/07/2015 01/07/2015 2.16.840.1.716353.4.391.11.97167 [facility] Unknown [id number]-rs0v-[id number]-i753-dyrsf405e6m6 01/07/2015 01/07/2015 2.16.840.1.720137.4.391.11.12371 [facility] Unknown [id number]-[id number] 01/07/2015 01/07/2015 2.16.840.1.346193.4.391.11.16474 [facility] Unknown [id number]-[id number] 01/07/2015 01/07/2015 2.16.840.1.234173.4.391.11.45610 [facility] Unknown [id number]-6kxf-33gn16mz355w 01/07/2015 01/07/2015 2.16.840.1.331006.4.391.11.54888 [facility] Unknown [id number]-8ssu-e870-f98oe8mx1se2 01/15/2015 01/15/2015 2.16.840.1.628864.4.391.11.75768 [facility] Unknown [id number]-745o-[id number] 01/15/2015 01/15/2015 2.16.840.1.989305.4.391.11.86038 [facility] Unknown [id number]-o1i9-88g6ui745jjq 01/15/2015 01/15/2015 2.16.840.1.565067.4.391.11.26072 [facility] Unknown [id number]-w5yx-[id number] 01/15/2015 01/15/2015 2.16.840.1.536937.4.391.11.30810 [facility] Unknown [id number]-8u2n-5x6789eo106a 01/15/2015 01/15/2015 2.16.840.1.583956.4.391.11.80090 [facility] Unknown [id number]-25a0-s474if9ij57c 01/15/2015 01/15/2015 2.16.840.1.038611.4.391.11.78724 [facility] Unknown [id number]-[id number] 01/15/2015 01/15/2015 2.16.840.1.625920.4.391.11.83577 [facility] Unknown [id number]-[id number] 01/15/2015 01/15/2015 2.16.840.1.176813.4.391.11.47547 [facility] Unknown [id number]-[id number] 01/15/2015 01/15/2015 2.16.840.1.883538.4.391.11.34484 [facility] Unknown [id number]-x394n7i1r32q 01/15/2015 01/15/2015 2.16.840.1.157800.4.391.11.01611 [facility] Unknown [id number]-glq2-5l63-r543-117qlb1f0u55 01/15/2015 01/15/2015 2.16.840.1.762970.4.391.11.87607 [facility] Unknown [id number] 01/15/2015 01/15/2015 2.16.840.1.651135.4.391.11.74237 [facility] Unknown [id number] 01/15/2015 01/15/2015 2.16.840.1.705046.4.391.11.70035 [facility] Unknown [id number]-avto-[id number] 01/15/2015 01/15/2015 2.16.840.1.499644.4.391.11.75482 [facility] Unknown [id number]-[id number] 01/15/2015 01/15/2015 2.16.840.1.519603.4.391.11.25538 [facility] Unknown [id number]-rl7l-9ck470g606qd 01/15/2015 01/15/2015 2.16.840.1.526626.4.391.11.10774 [facility] Unknown [id number]-n05e-769ko2z5dzk9 01/15/2015 01/15/2015 2.16.840.1.844335.4.391.11.64046 [facility] Unknown [id number] 01/15/2015 01/15/2015 2.16.840.1.320857.4.391.11.90135 [facility] Unknown [id number]-[id number] 01/15/2015 01/15/2015 2.16.840.1.840521.4.391.11.91607 [facility] Unknown [id number]-[id number] 01/15/2015 01/15/2015 2.16.840.1.289324.4.391.11.30292 [facility] Unknown [id number] 01/15/2015 01/15/2015 2.16.840.1.343840.4.391.11.54585 [facility] Unknown [id number]-kc9v-5g9qf85qn844 01/15/2015 01/15/2015 2.16.840.1.443405.4.391.11.63679 [facility] Unknown [id number] 01/15/2015 01/15/2015 2.16.840.1.233882.4.391.11.11013 [facility] Unknown [id number] 01/15/2015 01/15/2015 2.16.840.1.215135.4.391.11.24945 [facility] Unknown [id number] 01/15/2015 01/15/2015 2.16.840.1.242217.4.391.11.51216 [facility] Unknown [id number] 01/15/2015 01/15/2015 2.16.840.1.463329.4.391.11.23895 [facility] Unknown [id number]-[id number] 01/15/2015 01/15/2015 2.16.840.1.900573.4.391.11.98252 [facility] Unknown [id number]-[id number] 01/15/2015 01/15/2015 2.16.840.1.467159.4.391.11.21675 [facility] Unknown [id number]-28d3-d6y0-5xx13gak7715 01/15/2015 01/15/2015 2.16.840.1.561537.4.391.11.06120 [facility] Unknown [id number]-b3bm-93lz-99w5-4yr36vz3vd37 01/15/2015 01/15/2015 2.16.840.1.647414.4.391.11.36468 [facility] Unknown [id number]-[id number] 01/15/2015 01/15/2015 2.16.840.1.188810.4.391.11.05048 [facility] Unknown [id number] 02/05/2015 02/05/2015 2.16.840.1.447705.4.391.11.74112 [facility] Unknown [id number]-xg8l-[id number] 02/05/2015 02/05/2015 2.16.840.1.545240.4.391.11.20285 [facility] Unknown [id number]-nfhg-[id number] 02/05/2015 02/05/2015 2.16.840.1.854991.4.391.11.99572 [facility] Unknown [id number] 02/05/2015 02/05/2015 2.16.840.1.926493.4.391.11.49446 [facility] Unknown 91585t10-acnu-2215-2oo8-t9g0s9ii9t90 02/05/2015 02/05/2015 2.16.840.1.728194.4.391.11.35577 [facility] Unknown 3t8d413c-8898-8mru-l9f6-1gc2253cfmn0 02/05/2015 02/05/2015 2.16.840.1.469817.4.391.11.34657 [facility] Unknown 1401294k-y829-7n11-ip4d-09939262cs91 02/05/2015 02/05/2015 2.16.840.1.877313.4.391.11.06020 [facility] Unknown 78rt514i-j5u9-262f-k7v8-l2d496vx6ci1 02/05/2015 02/05/2015 2.16.840.1.631618.4.391.11.49664 [facility] Unknown 51j43ytp-2pa3-94rp-i5h2-zo186i8y9r3j 02/05/2015 02/05/2015 2.16.840.1.104529.4.391.11.74905 [facility] Unknown 0rk6u485-5216-473b-915o-4po6157q397t 02/05/2015 02/05/2015 2.16.840.1.361895.4.391.11.39558 [facility] Unknown 473xpmwz-5858-988d-9765-85yor74i3835 02/05/2015 02/05/2015 2.16.840.1.952532.4.391.11.06704 [facility] Unknown [id number]-c580-92z4-c634-kn5s8yc9ntf5 02/05/2015 02/05/2015 2.16.840.1.985618.4.391.11.60766 [facility] Unknown 1c55kep3-4765-4b78-0ia7-npj0215k665r 02/05/2015 02/05/2015 2.16.840.1.343099.4.391.11.09139 [facility] i0b46y9q-d022-9489-d9w8-t5q26166439i 02/05/2015 02/05/2015 2.16.840.1.428723.4.391.11.49971 [facility] Unknown g1g4658c-8yw5-1jv8-02cm-bm7b5w66i6t1 02/05/2015 02/05/2015 2.16.840.1.053278.4.391.11.91816 [facility] Unknown 95so61aa-a13d-005w-306m-03v37321v9w6 02/05/2015 02/05/2015 2.16.840.1.718867.4.391.11.24961 [facility] Unknown ckl35mld-9493-3179-242n-771i35d1048x 02/05/2015 02/05/2015 2.16.840.1.768633.4.391.11.64767 [facility] Unknown 2pub9w82-41ck-0860-9zyy-h028t5700eu4 02/05/2015 02/05/2015 2.16.840.1.086224.4.391.11.14913 [facility] Unknown 8hy46ug9-ps5i-2i40-qwx3-u07e0y66mau5 02/05/2015 02/05/2015 2.16.840.1.418078.4.391.11.83409 [facility] Unknown f1352683-65i2-3j39-d1m2-mc3fiiz6q09a 02/05/2015 02/05/2015 2.16.840.1.977648.4.391.11.89217 [facility] Unknown -566m-5s3s-4os8-ju85y1ech074 02/05/2015 02/05/2015 2.16.840.1.296532.4.391.11.80827 [facility] Unknown j55pl5o5-1wg5-88y8-ryje-p9t5s5374if3 02/05/2015 02/05/2015 2.16.840.1.549691.4.391.11.79000 [facility] Unknown s3tki80k-030b-5b38-6dq3-15021v5j6987 02/05/2015 02/05/2015 2.16.840.1.685501.4.391.11.13645 [facility] Unknown 58yb3b03-8q0m-084k-y4r5-4b093512a775 02/05/2015 02/05/2015 2.16.840.1.847603.4.391.11.38136 [facility] Unknown 03v7vr75-gl5i-880i-kf5h-436fiimdwb03 02/05/2015 02/05/2015 2.16.840.1.698571.4.391.11.03381 [facility] Unknown 28g815p1-0845-4y30-k0kv-qi786t86xq91 02/05/2015 02/05/2015 2.16.840.1.784953.4.391.11.62200 [facility] Unknown m3370x0r-d875-90yp-0091-10v20c9krs5x 02/05/2015 02/05/2015 2.16.840.1.740475.4.391.11.22631 [facility] Unknown 344kw5pf-92i7-7927-3536-3kdt6y6xm918 02/05/2015 02/05/2015 2.16.840.1.265879.4.391.11.73198 [facility] Unknown 1n93g17u-53y3-38c9-qu34-8cgq05y22a9i 02/05/2015 02/05/2015 2.16.840.1.204753.4.391.11.84387 [facility] Unknown xevvl1k8-0a00-7li6-w12p-3x70dx5060w7 02/05/2015 02/05/2015 2.16.840.1.874195.4.391.11.94330 [facility] Unknown 84n29k3h-779e-97h3-7d9y-cmg1fgfn3h33 02/05/2015 02/05/2015 2.16.840.1.980825.4.391.11.28474 [facility] Unknown h59zw666-d934-290e-ka3v-j77c0o34x5c9 02/09/2015 02/09/2015 2.16.840.1.126078.4.391.11.57226 [facility] Unknown m8z7653s-wltm-9801-e206-6484j62xnbkg 02/09/2015 02/09/2015 2.16.840.1.655657.4.391.11.13102 [facility] Unknown 7ax74rt6-428b-3721-fvt3-9i632r023733 02/09/2015 02/09/2015 2.16.840.1.548138.4.391.11.89052 [facility] Unknown bh23v50f-9r6h-9488-t825-213y6001hb3i 02/09/2015 02/09/2015 2.16.840.1.801286.4.391.11.50201 [facility] Unknown 977xok69-7l33-9k79-ps92-g4xgowb0k2dd 02/09/2015 02/09/2015 2.16.840.1.357611.4.391.11.64038 [facility] Unknown c5p2uwr9-m10z-603q-1295-ho2775s70ew1 02/09/2015 02/09/2015 2.16.840.1.806257.4.391.11.64584 [facility] Unknown iyk21r4d-g94l-0u28-s3f2-140048ok5957 02/09/2015 02/09/2015 2.16.840.1.398702.4.391.11.21463 [facility] Unknown 575k3981-7296-24h4-3q36-i74b4369zl36 02/09/2015 02/09/2015 2.16.840.1.451331.4.391.11.96411 [facility] Unknown 09z0fk0s-6k25-4441-75i1-0068m6x0iq38 02/09/2015 02/09/2015 2.16.840.1.202755.4.391.11. [facility] Unknown 9w05k6e8-okx9-5eu0-jr56-871p9lk266c3 02/09/2015 02/09/2015 2.16.840.1.168669.4.391.11.04630 [facility] Unknown z1m1f301-a371-6kbn-6657-pmnxt822gp47 02/09/2015 02/09/2015 2.16.840.1.044830.4.391.11.08723 [facility] Unknown 10642n13-b4va-7wpm-8142-9ics8v038261 02/09/2015 02/09/2015 2.16.840.1.937620.4.391.11.44095 [facility] Unknown 11658611-b4tq-5f63-13b7-6dzwj6km9g18 02/09/2015 02/09/2015 2.16.840.1.917354.4.391.11.11947 [facility] Unknown y1l4ch36-b385-978o-ugr4-blp13vhn1p7o 02/09/2015 02/09/2015 2.16.840.1.642692.4.391.11.72562 [facility] Unknown 1jgy5lpj-oqfq-1892-c7i3-2a5q2696r6um 02/09/2015 02/09/2015 2.16.840.1.732492.4.391.11.98519 [facility] Unknown 843ui519-t732-545w-14b0-931351ivm8et 02/09/2015 02/09/2015 2.16.840.1.846661.4.391.11.25137 [facility] Unknown 5i7240k0-9o46-5056-91r0-k92c351cfq6k 02/09/2015 02/09/2015 2.16.840.1.120345.4.391.11.10545 [facility] Unknown m0f8hom1-n11h-6c4s-q0tn-img1574m8029 02/09/2015 02/09/2015 2.16.840.1.657419.4.391.11.72722 [facility] Unknown 17d5j0yt-28t9-0742-7x5x-869462fp0bn8 02/09/2015 02/09/2015 2.16.840.1.026293.4.391.1195116 [facility] Unknown d68p6275-5020-0za7-6139-8zb5qzh2152b 02/09/2015 02/09/2015 2.16.840.1.540643.4.391.11.22799 [facility] Unknown 258p8638-386f-5787-3337-ll2j48rtiepu 02/09/2015 02/09/2015 2.16.840.1.319100.4.391.11.03959 [facility] Unknown 95p08q22-1gkm-481o-ge37-916h77o621o9 02/09/2015 02/09/2015 2.16.840.1.625045.4.391.11.90634 [facility] Unknown 68oo8673-n649-26l7-70t5-400tc17h0456 02/09/2015 02/09/2015 2.16.840.1.728795.4.391.11.41262 [facility] Unknown 7bwc4879-4200-4s15-9089-1ouy28040z0v 02/09/2015 02/09/2015 2.16.840.1.905151.4.391.11.76213 [facility] Unknown 29tv288d-oq94-894e-2no9-qa8057396z11 02/09/2015 02/09/2015 2.16.840.1.878075.4.391.11.15836 [facility] Unknown 50d3c730-9141-7502-es3t-296097k6o633 02/09/2015 02/09/2015 2.16.840.1.989421.4.391.11.63341 [facility] Unknown s8h1d56n-5900-6915-0q5e-045w92p2are8 02/09/2015 02/09/2015 2.16.840.1.383463.4.391.11.57640 [facility] Unknown 582q8816-8855-70k8-zm2c-2813333x6rr3 02/09/2015 02/09/2015 2.16.840.1.176005.4.391.11.45339 [facility] Unknown 6868ig05-4eb5-9c56-o18z-d61rv65xo4by 02/09/2015 02/09/2015 2.16.840.1.069707.4.391.11.38893 [facility] Unknown pxyp755e-3f44-6q3v-1693-16rbrl7khd8h 02/09/2015 02/09/2015 2.16.840.1.806670.4.391.11.51478 [facility] Unknown mmri557m-k077-0y67-99k4-63a39nba07ls 02/09/2015 02/09/2015 2.16.840.1.190916.4.391.11.26745 [facility] Unknown 67qm86c9-0158-3483-az6e-h1ci327sb010 04/05/2015 04/05/2015 2.16.840.1.764545.4.391.11.59856 [facility] Unknown o0pp8j84-q64n-6152-j9w9-01gg3k5c7344 04/05/2015 04/05/2015 2.16.840.1.281172.4.391.11.43188 [facility] Unknown wz44pj72-1337-99xy-6262-i090vkg5w2z9 04/05/2015 04/05/2015 2.16.840.1.739902.4.391.11.45559 [facility] Unknown 8x8w7el5-p786-1398-2sil-i18967w280z8 04/05/2015 04/05/2015 2.16.840.1.201488.4.391.11.92587 [facility] Unknown gdw31937-px34-8249-60n6-y14b6jqps3r8 04/05/2015 04/05/2015 2.16.840.1.623597.4.391.11.92451 [facility] Unknown 2205e6nw-253h-8o5b-zp66-06y493786zmw 04/05/2015 04/05/2015 2.16.840.1.125142.4.391.11.21995 [facility] Unknown 5y94l71f-v72u-762u-3253-utn1xp92c9y3 04/05/2015 04/05/2015 2.16.840.1.541510.4.391.11.38113 [facility] Unknown qpl32168-nd62-4lj1-8tot-161976d469mz 04/05/2015 04/05/2015 2.16.840.1.370647.4.391.11.11585 [facility] Unknown 4s2bl01p-53r3-7605-r25n-82758l9rz113 04/05/2015 04/05/2015 2.16.840.1.881034.4.391.11.45825 [facility] Unknown 0h2h24to-e5ez-7s0k-q98s-gn85jjm1742m 04/05/2015 04/05/2015 2.16.840.1.246176.4.391.11.91720 [facility] Unknown 1v0f4609-4n2x-8k68-g35m-gf59352567v4 04/05/2015 04/05/2015 2.16.840.1.080245.4.391.11.40476 [facility] Unknown 66945tc6-z721-3wpx-083w-68x816s7137j 04/05/2015 04/05/2015 2.16.840.1.591117.4.391.11.09464 [facility] Unknown 0735bo21-d693-81uc-a5j3-1ft7a3o7q1yf 04/05/2015 04/05/2015 2.16.840.1.062187.4.391.11.09477 [facility] Unknown 5ddc2120-5682-9g07-6frr-8h29t7mi0w11 04/05/2015 04/05/2015 2.16.840.1.058869.4.391.11.13696 [facility] Unknown 5uqi0bi1-8y73-5041-43f7-v7hh542jxh7l 04/05/2015 04/05/2015 2.16.840.1.102643.4.391.11.64556 [facility] Unknown 97mo833p-2crq-4i1n-3g1q-zl5469ueaa2b 04/05/2015 04/05/2015 2.16.840.1.558522.4.391.11.55389 [facility] Unknown 4735r5mi-4tld-234z-61g9-30s1599c3s3x 04/05/2015 04/05/2015 2.16.840.1.009198.4.391.11.12506 [facility] Unknown rbvf24z6-420d-185u-8kr7-9vh5kh56qfv3 04/05/2015 04/05/2015 2.16.840.1.933329.4.391.11.46510 [facility] Unknown m3m408f1-hk44-06r8-n6st-646qpm770683 04/05/2015 04/05/2015 2.16.840.1.487882.4.391.11.14985 [facility] Unknown rf70312v-93g5-3393-24zr-ib05i128h758 04/05/2015 04/05/2015 2.16.840.1.102934.4.391.11.14973 [facility] Unknown 523amo1o-5389-913p-3n01-39zv61qvq0d6 04/05/2015 04/05/2015 2.16.840.1.751787.4.391.11.17933 [facility] Unknown z999515l-084f-3g57-je7v-016u387b7neg 04/05/2015 04/05/2015 2.16.840.1.973976.4.391.11.39671 [facility] Unknown u4i90ze2-gv46-11a8-l90r-23937k33kc00 04/05/2015 04/05/2015 2.16.840.1.779431.4.391.11.70397 [facility] Unknown fm2zv78a-9596-095v-3732-11z34pbmyqo9 04/05/2015 04/05/2015 2.16.840.1.881317.4.391.11.04422 [facility] Unknown 506k960w-577x-48f5-ax9i-0c32b2vd074z 04/05/2015 04/05/2015 2.16.840.1.489263.4.391.11.91487 [facility] Unknown b6u63gs4-6f4y-798v-2k68-wgq8b27x3fu2 04/05/2015 04/05/2015 2.16.840.1.486686.4.391.11.66771 [facility] Unknown 7w3qy6gn-5nt5-8941-450s-81a727860g7k 04/05/2015 04/05/2015 2.16.840.1.243043.4.391.11.63178 [facility] Unknown bm9v9365-3v6t-1647-a2o0-4w0l3f7o7266 04/05/2015 04/05/2015 2.16.840.1.535858.4.391.11.90627 [facility] Unknown 751t65p7-3zqr-638e-x57c-h84ji8a2u245 04/05/2015 04/05/2015 2.16.840.1.031773.4.391.11.38836 [facility] Unknown dkac91u8-t1rj-0u01-2w29-86902733p80m 04/05/2015 04/05/2015 2.16.840.1.869045.4.391.11.06901 [facility] Unknown 01kp8j17-r4nc-8371-114y-7666378u419e 04/26/2015 04/26/2015 2.16.840.1.143784.4.391.11.23142 [facility] Unknown 0f50wfj1-i6n4-767o-z151-037999c12a2z 04/26/2015 04/26/2015 2.16.840.1.948663.4.391.11.52596 [facility] Unknown 43435s6x-958t-4441-b34l-94306r6p372s 04/26/2015 04/26/2015 2.16.840.1.653056.4.391.11.25812 [facility] Unknown p593r171-099s-5785-w0f3-858q334672c3 04/26/2015 04/26/2015 2.16.840.1.188828.4.391.11.57175 [facility] Unknown 9trx3727-u326-88a9-mr5e-22y172r24zaq 04/26/2015 04/26/2015 2.16.840.1.925392.4.391.11.03327 [facility] Unknown mdv1997l-291i-7n33-m2m3-15075904799m 04/26/2015 04/26/2015 2.16.840.1.099879.4.391.11.97512 [facility] Unknown 8ot9503v-0l55-9758-x9tj-o1b1bwsyb950 04/26/2015 04/26/2015 2.16.840.1.824180.4.391.11.03682 [facility] Unknown 58u29912-31d3-3p64-p819-z42931lpy1p9 04/26/2015 04/26/2015 2.16.840.1.271602.4.391.11.45182 [facility] Unknown cz318a20-423z-184h-a2b1-48kk706e771i 04/26/2015 04/26/2015 2.16.840.1.073627.4.391.11.94574 [facility] Unknown 19i25019-8pp4-4f0x-113s-7cx64a3tq120 04/26/2015 04/26/2015 2.16.840.1.266357.4.391.11.52383 [facility] Unknown i2jh9t06-5n31-5a7q-a49x-3430y9iay239 04/26/2015 04/26/2015 2.16.840.1.010588.4.391.11.76380 [facility] Unknown 1972b3y8-4z6m-5d45-o328-7893013525w2 04/26/2015 04/26/2015 2.16.840.1.061384.4.391.11.37146 [facility] Unknown a164upx9-83gp-4074-lwwl-i20035u5tym7 04/26/2015 04/26/2015 2.16.840.1.642883.4.391.11.51284 [facility] Unknown dr640748-14g6-4if8-27c9-95n7l2l900lg 04/26/2015 04/26/2015 2.16.840.1.800713.4.391.11.83769 [facility] Unknown p56l7061-85p9-618m-3u60-w89559ngo864 04/26/2015 04/26/2015 2.16.840.1.055131.4.391.11.39477 [facility] Unknown gw85489c-hr68-1397-fz74-824w99wd7655 04/26/2015 04/26/2015 2.16.840.1.810904.4.391.11.62977 [facility] Unknown g2654601-cqh2-5kuc-uo7e-px3bexnlp96q 04/26/2015 04/26/2015 2.16.840.1.042068.4.391.11.84598 [facility] Unknown mt27z99j-6bpq-991x-mz4f-b1r8pxi1t09y 04/26/2015 04/26/2015 2.16.840.1.983096.4.391.11.03526 [facility] Unknown 61w18652-wdj8-4250-ic19-x383eh530h37 04/26/2015 04/26/2015 2.16.840.1.878767.4.391.11.71925 [facility] Unknown r6z46bh3-z7f3-1s0s-xb27-z96761v84kg3 04/26/2015 04/26/2015 2.16.840.1.185172.4.391.11.79929 [facility] Unknown w57033op-bpm7-39hq-6u49-do4p74h60691 04/26/2015 04/26/2015 2.16.840.1.495445.4.391.11.97646 [facility] Unknown 8x34x2d5-6q04-4j12-1b3s-18i4225lj932 04/26/2015 04/26/2015 2.16.840.1.594528.4.391.11.23415 [facility] Unknown il5er14v-zw6d-7884-450q-5875v0i75r77 04/26/2015 04/26/2015 2.16.840.1.167150.4.391.11.02290 [facility] Unknown 6629i766-a782-67f4-3e8t-05c92z5862j9 04/26/2015 04/26/2015 2.16.840.1.293292.4.391.11.64583 [facility] Unknown q2wro64l-fszr-997q-2050-7ec56h790kl1 04/26/2015 04/26/2015 2.16.840.1.136569.4.391.11.27404 [facility] Unknown 28oo727j-st47-625b-224p-l69904304389 04/26/2015 04/26/2015 2.16.840.1.779078.4.391.11.88790 [facility] Unknown 8sf84341-537a-1g94-zpc6-8sh3984i3yw2 04/26/2015 04/26/2015 2.16.840.1.826559.4.391.11.64415 [facility] Unknown 5yi31lqw-fh8d-4wqy-s68c-91a6vbox7uy3 04/26/2015 04/26/2015 2.16.840.1.497891.4.391.11.85289 [facility] Unknown 68994h9u-80z4-0304-1uzf-7ju17cyx39vd 04/26/2015 04/26/2015 2.16.840.1.163423.4.391.11.97418 [facility] Unknown tv1fbqpr-s89s-165j-01w8-9z07htejb8n3 05/05/2015 05/05/2015 2.16.840.1.496285.4.391.11.90644 [facility] Unknown c27505o1-59a5-657z-b6w7-d9wt42s4t8f7 05/05/2015 05/05/2015 2.16.840.1.237758.4.391.11.89156 [facility] Unknown 483y787t-97g9-9jpy-7t6n-h56019i71934 05/05/2015 05/05/2015 2.16.840.1.266669.4.391.11.32310 [facility] Unknown 0640i549-723d-7bq4-9644-p4161e1fj95j 05/05/2015 05/05/2015 2.16.840.1.599372.4.391.11.23883 [facility] Unknown 35n367fl-0b34-2w3r-548y-81gcz0h0a3h0 05/05/2015 05/05/2015 2.16.840.1.781111.4.391.11.68982 [facility] Unknown 6f6631ca-5308-0shj-dm61-wj6w1o8la1kg 05/05/2015 05/05/2015 2.16.840.1.378686.4.391.11.09756 [facility] Unknown a5773q9e-z58r-51n6-c684-e463egq74983 05/05/2015 05/05/2015 2.16.840.1.007835.4.391.11.86367 [facility] Unknown kkg9632r-367s-14fq-285u-u64793903km7 05/05/2015 05/05/2015 2.16.840.1.557417.4.391.11.63516 [facility] Unknown 71g9548h-802y-7t01-84a2-029ig572a176 05/05/2015 05/05/2015 2.16.840.1.762104.4.391.11.34145 [facility] Unknown 8414u395-n790-2918-u1g7-0g64pm537q1k 05/05/2015 05/05/2015 2.16.840.1.101880.4.391.11.17198 [facility] Unknown 2m271vbd-7jrl-2877-596t-59299btv979x 05/05/2015 05/05/2015 2.16.840.1.704861.4.391.11.92269 [facility] Unknown 42hh98c3-256l-29mj-a803-30bx9847v40d 05/05/2015 05/05/2015 2.16.840.1.747375.4.391.11.58294 [facility] Unknown f2r27374-9748-9l3w-ed21-0172a964juzg 05/05/2015 05/05/2015 2.16.840.1.108151.4.391.11.55067 [facility] Unknown 1gtkqe3b-l866-9k5x-6i5g-919441a327ff 05/05/2015 05/05/2015 2.16.840.1.565280.4.391.11.84501 [facility] Unknown ag49f59w-q463-34g8-ig69-m3nq6920di59 05/05/2015 05/05/2015 2.16.840.1.796192.4.391.11.70341 [facility] Unknown 8f3f1vz6-lexp-3v3k-43uy-969y72671w2u 05/05/2015 05/05/2015 2.16.840.1.202479.4.391.11.19807 [facility] Unknown 3u3i71r0-9028-3q01-p65g-y4w6564u281v 05/05/2015 05/05/2015 2.16.840.1.658417.4.391.11.49720 [facility] Unknown 45983ge9-701n-4x2r-z6cn-b430k2102le1 05/05/2015 05/05/2015 2.16.840.1.129874.4.391.11.83259 [facility] Unknown [id number]-2728-89to3008u01k 05/05/2015 05/05/2015 2.16.840.1.701439.4.391.11.63761 [facility] Unknown 08g37l38-w4e8-7g87-bvly-r0ilc8616eyo 05/05/2015 05/05/2015 2.16.840.1.402271.4.391.11.76205 [facility] Unknown [id number]-c21u-8l36-640u-5l59q70jv4p9 05/05/2015 05/05/2015 2.16.840.1.635185.4.391.11.07174 [facility] Unknown gx21253l-2xz6-69t9-1n48-917v5739uv22 05/05/2015 05/05/2015 2.16.840.1.257384.4.391.11.87816 [facility] Unknown [id number]-[id number]-269jn0w36t04 05/05/2015 05/05/2015 2.16.840.1.318217.4.391.11.74387 [facility] Unknown [id number]-1167-09tk-u123xo2k09nt 05/05/2015 05/05/2015 2.16.840.1.758610.4.391.11.45230 [facility] Unknown [id number]-876z-[id number] 05/05/2015 05/05/2015 2.16.840.1.815703.4.391.11.02512 [facility] Unknown [id number]-r64q-4737-7866-381qe9l63y55 05/05/2015 05/05/2015 2.16.840.1.282554.4.391.11.96597 [facility] Unknown [id number]-v182-3931u596d08h 05/05/2015 05/05/2015 2.16.840.1.510514.4.391.11.84974 [facility] Unknown 0n1gq2o8-zzn0-0997-x66e-74lh095gj611 05/05/2015 05/05/2015 2.16.840.1.921595.4.391.11.57445 [facility] Unknown [id number]-bdx0-2u863594vhzp 05/10/2015 05/10/2015 2.16.840.1.219820.4.391.11.35766 [facility] Unknown [id number]-4932-46l3-83w9kx17na0i 05/10/2015 05/10/2015 2.16.840.1.872622.4.391.11.52147 [facility] Unknown uw65a63e-45w6-646p-rzn4-g451nux8227z 05/10/2015 05/10/2015 2.16.840.1.051226.4.391.11.12172 [facility] Unknown h9lm99zd-7um7-79q3-631e-sji61pg3kpf9 05/10/2015 05/10/2015 2.16.840.1.726394.4.391.11.40366 [facility] Unknown 6u4hw682-x96j-0pc8-l903-5442m74ovh3b 05/10/2015 05/10/2015 2.16.840.1.994858.4.391.11.08236 [facility] Unknown zzp5j536-a12a-792v-pfj3-7w99r5r96i5w 05/10/2015 05/10/2015 2.16.840.1.683408.4.391.11.30795 [facility] Unknown [id number]-c728164t4650 05/10/2015 05/10/2015 2.16.840.1.034430.4.391.11.14356 [facility] Unknown [id number]-4617-5o8c-c684-8r4354391ag9 05/10/2015 05/10/2015 2.16.840.1.667975.4.391.11.61760 [facility] Unknown [id number]-m905-4643-730i-64v642095v58 05/10/2015 05/10/2015 2.16.840.1.846177.4.391.11.32430 [facility] Unknown [id number]-[id number]-qs6m-[id number] 05/10/2015 05/10/2015 2.16.840.1.644100.4.391.11.21499 [facility] Unknown y6tx6184-8sy3-33a9-2827-k9xo3974v6l0 05/10/2015 05/10/2015 2.16.840.1.454457.4.391.11.09803 [facility] Unknown [id number]-cf21-3017-ct4f-000qq2x28513 05/10/2015 05/10/2015 2.16.840.1.954438.4.391.11.08771 [facility] Unknown 329m38n7-2369-42ub-0175-o7ooqybt43g5 05/10/2015 05/10/2015 2.16.840.1.657403.4.391.11.09102 [facility] Unknown [id number]-z8wq-[id number] 05/10/2015 05/10/2015 2.16.840.1.546325.4.391.11.05660 [facility] Unknown pyu39fr1-l52f-9ckp-q564-317147i7a47c 05/10/2015 05/10/2015 2.16.840.1.752065.4.391.11.68398 [facility] Unknown 1xgqkdc1-e0vr-82w8-82l9-031l73a5889h 05/10/2015 05/10/2015 2.16.840.1.739658.4.391.11.02072 [facility] Unknown m125orw7-1951-68t6-j6k1-9y01984m1g65 05/10/2015 05/10/2015 2.16.840.1.943074.4.391.11.76550 [facility] Unknown [id number]-6q71-0z29-l8g8-y43640hqoze8 05/10/2015 05/10/2015 2.16.840.1.116087.4.391.11.37233 [facility] Unknown [id number]-34i4-e551-640bfn09myxh 05/10/2015 05/10/2015 2.16.840.1.124415.4.391.11.38582 [facility] Unknown [id number]-5817-481j-87i6-855x53383v1r 05/10/2015 05/10/2015 2.16.840.1.627555.4.391.11.54901 [facility] Unknown [id number]-0397-61g1-b135-1uuez6p22991 05/10/2015 05/10/2015 2.16.840.1.884331.4.391.11.08897 [facility] Unknown [id number]-3gss-[id number] 05/10/2015 05/10/2015 2.16.840.1.467152.4.391.11.25843 [facility] Unknown w5qmk65a-sg7i-64e8-mmq9-7b7n25736gf4 05/10/2015 05/10/2015 2.16.840.1.013952.4.391.11.65604 [facility] Unknown [id number]-2233-3a7x-[id number] 05/10/2015 05/10/2015 2.16.840.1.035432.4.391.11.76988 [facility] Unknown u87t63h9-63t2-509u-k2z2-2f2pwm121098 05/10/2015 05/10/2015 2.16.840.1.164462.4.391.11.77680 [facility] Unknown 275cmv06-6t8k-295y-7j01-mtn2s13m407h 05/10/2015 05/10/2015 2.16.840.1.177111.4.391.11.08063 [facility] Unknown t20y1536-2814-6n59-9709-4w7k7k487zt0 05/10/2015 05/10/2015 2.16.840.1.905104.4.391.11.18585 [facility] Unknown [id number]-e67s-5v7l-z548-t75r1l0750pn 05/10/2015 05/10/2015 2.16.840.1.660542.4.391.11.03634 [facility] Unknown [id number]-38c409m13325 05/14/2015 05/14/2015 2.16.840.1.714627.4.391.11.22971 [facility] Unknown 0zgwbv15-96v1-0g1i-u3o6-5c5jz820r77h 05/14/2015 05/14/2015 2.16.840.1.110608.4.391.11.01090 [facility] Unknown [id number]-1z3p-201o-1116-943ac9kh94rv 05/14/2015 05/14/2015 2.16.840.1.275917.4.391.11.28657 [facility] Unknown [id number]-5078-4377-dim23385ai08 05/14/2015 05/14/2015 2.16.840.1.387338.4.391.11.12854 [facility] Unknown g060xykz-8483-021t-0i58-6v44ja8u36d9 05/14/2015 05/14/2015 2.16.840.1.636169.4.391.11.31279 [facility] Unknown [id number]4a03q1y3h83 05/14/2015 05/14/2015 2.16.840.1.626081.4.391.11.03187 [facility] Unknown [id number]-y01o-g8o339978rb9 05/14/2015 05/14/2015 2.16.840.1.971819.4.391.11.64687 [facility] Unknown w9k2u18k-734z-254j-60y6-1p491u49rh24 05/14/2015 05/14/2015 2.16.840.1.960459.4.391.11.32769 [facility] Unknown [id number]-4824-0z06-1w47-[id number] 05/14/2015 05/14/2015 2.16.840.1.318864.4.391.11.60769 [facility] Unknown [id number]-828003d2f35i 05/14/2015 05/14/2015 2.16.840.1.627750.4.391.11.07787 [facility] Unknown [id number]-rohb-01a0-o062-2550u8g6co76 05/14/2015 05/14/2015 2.16.840.1.448755.4.391.11.86317 [facility] Unknown [id number]-[id number] 05/14/2015 05/14/2015 2.16.840.1.725762.4.391.11.95907 [facility] Unknown akj02jon-[id number]-m88dl3j602xd 05/14/2015 05/14/2015 2.16.840.1.384891.4.391.11.33348 [facility] Unknown [id number]-[id number]-46hj-0sg8vciobf6d 05/14/2015 05/14/2015 2.16.840.1.947811.4.391.11.50460 [facility] Unknown [id number]578z027s2d1 05/14/2015 05/14/2015 2.16.840.1.903136.4.391.11.06876 [facility] Unknown [id number]-ie81-7anw-x3ey-8ry9k2g333a0 05/14/2015 05/14/2015 2.16.840.1.189109.4.391.11.72687 [facility] Unknown [id number]-kut6-tj1fq84p70c5 05/14/2015 05/14/2015 2.16.840.1.712381.4.391.11.14928 [facility] Unknown 090l1477-0198-934q-zz50-4nikx01qausk 05/14/2015 05/14/2015 2.16.840.1.714302.4.391.11.87226 [facility] c8eb6pv4-t690-5k79-0113-563601734182 05/14/2015 05/14/2015 2.16.840.1.530960.4.391.11.37705 [facility] 3w1941up-4827-8517-5a06-2h41y59na580 05/14/2015 05/14/2015 2.16.840.1.643018.4.391.11.13919 [facility] l98b2187-o76k-2m1i-4h00-d6099326258u 05/14/2015 05/14/2015 2.16.840.1.854032.4.391.11 [facility] Unknown 274in5n2-4626-8y1v-5sid-r9371z63n54e 05/14/2015 05/14/2015 2.16.840.1.149379.4.391.11. [facility] Unknown 24udc2h7-we3m-11hl-m269-x43293276ukf 05/14/2015 05/14/2015 2.16.840.1.352560.4.391.11.31265 [facility] c66ak535-6mf2-702z-5119-j8ieg5ny7mvh 05/14/2015 05/14/2015 2.16.840.1.529248.4.391.11.25729 [facility] c7yg7916-e042-2289-5598-4450y47g5w41 05/14/2015 05/14/2015 2.16.840.1.191728.4.391.11.55152 [facility] i22op936-13s1-1l78-425y-938v9on9d9yy 05/14/2015 05/14/2015 2.16.840.1.687846.4.391.11.56888 [facility] 985r9p1n-w489-0z15-0ubg-32q2pgm2ow15 05/14/2015 05/14/2015 2.16.840.1.273574.4.391.11.93384 [facility] r9408f2u-8r62-3823-y27o-1zkk43uk0c3y 05/14/2015 05/14/2015 2.16.840.1.199543.4.391.11.29660 [facility] 580e4v47-5965-2417-a94o-1q70943c6r9j 07/06/2015 07/06/2015 2.16.840.1.542817.4.391.11.87872 [facility] i9j692t6-16v5-46z4-v581-6920amp3el60 07/06/2015 07/06/2015 2.16.840.1.880959.4.391.11.26878 [facility] Unknown 51hdkxx0-2589-0b55-z7n5-9533x88jja3h 07/06/2015 07/06/2015 2.16.840.1.214825.4.391.11.04629 [facility] Unknown mul6d1tq-7rs2-5141-2847-i89fu013r35y 07/06/2015 07/06/2015 2.16.840.1.709218.4.391.11.39395 [facility] Unknown 23985p39-4s6s-6u3p-u5x2-7b6i19hovj84 07/06/2015 07/06/2015 2.16.840.1.680446.4.391.11.28445 [facility] Unknown qxeec7qh-10cc-40l2-x381-6394823ygn70 07/06/2015 07/06/2015 2.16.840.1.686501.4.391.11.48834 [facility] 3z3g5n7r-21l8-3a65-947g-27ao92q627qq 07/06/2015 07/06/2015 2.16.840.1.389326.4.391.11.52645 [facility] Unknown 7t233c34-5ttl-2593-1b2x-87u1811a1l4u 07/06/2015 07/06/2015 2.16.840.1.013390.4.391.11.93959 [facility] Unknown 3nk6y57q-3v35-9115-7f24-03101l0hr2ba 07/06/2015 07/06/2015 2.16.840.1.761416.4.391.11.56929 [facility] Unknown 245455d9-61rx-8761-990b-7i4p40r5vk1l 07/06/2015 07/06/2015 2.16.840.1.548845.4.391.11.97746 [facility] o5fc1657-8e3a-595j-nz72-7114mn828q34 07/06/2015 07/06/2015 2.16.840.1.648578.4.391.11.62105 [facility] 41hm7n84-jx46-287c-8n99-k073jmy33g37 07/06/2015 07/06/2015 2.16.840.1.862487.4.391.11.00100 [facility] 8if24893-jbx4-077c-9y1p-vw9zb89jhzwi 07/06/2015 07/06/2015 2.16.840.1.459995.4.391.11.10476 [facility] Unknown 060yra76-44ob-5296-0368-s6g197k2t199 07/06/2015 07/06/2015 2.16.840.1.016115.4.391.11.59305 [facility] 8ndmsl99-9w9h-2x43-700k-56i91jict8ky 07/06/2015 07/06/2015 2.16.840.1.856434.4.391.11.37904 [facility] ya8t0965-ii20-15am-2584-66004f3z85gx 07/06/2015 07/06/2015 2.16.840.1.248567.4.391.11.16626 [facility] v7q1i153-s391-2403-5z3o-47uj99289b62 07/06/2015 07/06/2015 2.16.840.1.834352.4.391.11.56159 [facility] cj2k246y-90k0-72j7-84tj-jmt2yg01x396 07/06/2015 07/06/2015 2.16.840.1.529898.4.391.11.80563 [facility] 6n8q701c-116o-7tps-m2iu-83s1945h13g8 07/06/2015 07/06/2015 2.16.840.1.542655.4.391.11.38498 [facility] Unknown f496614t-2351-403a-e77j-1kj1md9277o6 07/06/2015 07/06/2015 2.16.840.1.577506.4.391.11.88305 [facility] 8o31196k-4ecl-758d-0g37-6c5g4914ivm9 07/06/2015 07/06/2015 2.16.840.1.043372.4.391.11.77153 [facility] Unknown akfz2379-9h64-9j23-4100-93s335m95964 07/06/2015 07/06/2015 2.16.840.1.711924.4.391.11.35658 [facility] Unknown 0816i91t-grg6-5l6r-4s2l-9n03ka7b649i 07/06/2015 07/06/2015 2.16.840.1.181173.4.391.11.91969 [facility] Unknown 722474q0-9u73-0b78-u27a-807423187r83 07/06/2015 07/06/2015 2.16.840.1.951066.4.391.11.65196 [facility] Unknown 2377aw10-26g5-279m-m2rq-76w7z8678188 07/06/2015 07/06/2015 2.16.840.1.262591.4.391.11.22766 [facility] Unknown 013s6kir-4q41-6f5v-4l4f-k783h8vi5666 07/06/2015 07/06/2015 2.16.840.1.098090.4.391.11.58641 [facility] 70q5m368-a110-4c5r-25gn-osk31jo87x77 07/06/2015 07/06/2015 2.16.840.1.579356.4.391.11.68260 [facility] xz58k8i6-8a71-0237-x4h8-5y3n7lk142dc 07/12/2015 07/12/2015 2.16.840.1.147293.4.391.11.46936 [facility] Unknown 196eron1-44kt-3yv3-rs17-45sop0eo20o3 07/12/2015 07/12/2015 2.16.840.1.352165.4.391.11.85635 [facility] Unknown 536502hv-9700-9258-5129-5s9d683e332b 07/12/2015 07/12/2015 2.16.840.1.875749.4.391.11.96520 [facility] Unknown u9bm5gy1-j030-3f94-ub7n-g9678q335b86 07/12/2015 07/12/2015 2.16.840.1.317672.4.391.11.29072 [facility] Unknown 9u4xh793-k03r-05xa-77o1-7apu2u945394 07/12/2015 07/12/2015 2.16.840.1.657409.4.391.11.35018 [facility] Unknown 96206fp4-ia7c-2426-6b29-0o337t35dn9f 07/12/2015 07/12/2015 2.16.840.1.479078.4.391.11.99337 [facility] Unknown 2e02o3q3-1142-0u4x-40pf-62h73to8h328 07/12/2015 07/12/2015 2.16.840.1.955719.4.391.11.81196 [facility] 63au9420-766d-9739-x5y2-0150673749m9 07/12/2015 07/12/2015 2.16.840.1.706873.4.391.11.23511 [facility] Unknown l0799758-8vqo-7646-7969-t7g04ns3358c 07/12/2015 07/12/2015 2.16.840.1.244435.4.391.11.36573 [facility] j1f6u537-e3b6-46x6-9356-r38by7573lu6 07/12/2015 07/12/2015 2.16.840.1.803870.4.391.11.14739 [facility] 20y6jmoc-euhw-8o31-5z9o-9mcf3d7w57h7 07/12/2015 07/12/2015 2.16.840.1.924707.4.391.11.30650 [facility] mx0416ql-11k2-022y-79e2-9w903468xm78 07/12/2015 07/12/2015 2.16.840.1.856618.4.391.11.22018 [facility] Unknown ro26dl50-9711-34s2-v7vt-44hp7q119203 07/12/2015 07/12/2015 2.16.840.1.868502.4.391.11.99568 [facility] Unknown 4qok17n6-1j0q-9k92-274k-659o6po88x08 07/12/2015 07/12/2015 2.16.840.1.379053.4.391.11.28876 [facility] kl51b1n3-5856-1l17-g996-0b78k7dis256 07/12/2015 07/12/2015 2.16.840.1.572515.4.391.11.35047 [facility] Unknown 80zb948r-7p47-2bn2-4y90-z4x9dp5t9c1u 07/12/2015 07/12/2015 2.16.840.1.242976.4.391.11.84095 [facility] 9q0z55b2-25e4-331q-u80b-008x6x342q7u 07/12/2015 07/12/2015 2.16.840.1.391678.4.391.11.52080 [facility] Unknown 2l688924-7273-2116-z3l3-119u68338564 07/12/2015 07/12/2015 2.16.840.1.984233.4.391.11.45287 [facility] Unknown m144r422-6ko9-6310-89qb-84o14g511rd4 07/12/2015 07/12/2015 2.16.840.1.954031.4.391.11.53291 [facility] Unknown 2557w7lu-h28o-792k-jg35-ibt87jv0ivd9 07/12/2015 07/12/2015 2.16.840.1.817738.4.391.11.68094 [facility] Unknown 2h4327kr-590m-8390-3916-80g3157x0566 07/12/2015 07/12/2015 2.16.840.1.440004.4.391.11.72511 [facility] Unknown 24121934-8xa9-9714-0k1i-76graa18w964 07/12/2015 07/12/2015 2.16.840.1.173465.4.391.11.50545 [facility] Unknown 340i86s5-9g8j-81z0-wr56-0193d4830m26 07/12/2015 07/12/2015 2.16.840.1.443837.4.391.11.92446 [facility] Unknown [id number]-h583-495j-5746-306k246d921k 07/12/2015 07/12/2015 2.16.840.1.511615.4.391.11.42062 [facility] Unknown w5s27d27-413i-94d1-7y41-4j30t7188z68 07/12/2015 07/12/2015 2.16.840.1.945862.4.391.11.09431 [facility] Unknown k55c34r1-14q0-47ec-sk7f-218f117q598j 07/12/2015 07/12/2015 2.16.840.1.375057.4.391.11.65271 [facility] Unknown 79j85729-1777-31e9-m0i8-7491s24y5e51 07/12/2015 07/12/2015 2.16.840.1.948820.4.391.11.86365 [facility] Unknown 6171iu01-0h27-54t7-w481-53l1v1035075 07/15/2015 07/15/2015 2.16.840.1.888380.4.391.11.84247 [facility] Unknown o5847302-0877-0t02-e5g7-6599217njs36 07/15/2015 07/15/2015 2.16.840.1.241994.4.391.11.08078 [facility] Unknown 22g5ri1v-t97m-613l-z88p-o5237bk30tc3 07/15/2015 07/15/2015 2.16.840.1.339063.4.391.11.50397 [facility] Unknown 7t63ep35-e59g-5dzj-5934-ja5mcz93y25x 07/15/2015 07/15/2015 2.16.840.1.125759.4.391.11.69041 [facility] Unknown 3t1199d8-a077-1678-8114-1wvhlg6ju7o8 07/15/2015 07/15/2015 2.16.840.1.875134.4.391.11.81165 [facility] Unknown 55c4g8jw-rf24-0903-0cr1-3560662t0r1e 07/15/2015 07/15/2015 2.16.840.1.608504.4.391.11.57894 [facility] Unknown j59h897v-54ul-2s58-1rl9-duw25a8r0c50 07/15/2015 07/15/2015 2.16.840.1.763881.4.391.11.19485 [facility] Unknown 5gmrup1c-172u-4y3k-2196-l53z99t09vd7 07/15/2015 07/15/2015 2.16.840.1.942956.4.391.11.85820 [facility] Unknown 17l1o402-713a-0528-1i34-0wk7960fm9q2 07/15/2015 07/15/2015 2.16.840.1.359480.4.391.11.92604 [facility] Unknown 351a7c24-1s1l-501j-hg33-0es59070mh1n 07/15/2015 07/15/2015 2.16.840.1.799615.4.391.11.05749 [facility] Unknown o773916h-4s13-0t29-5hr9-42713s64w329 07/15/2015 07/15/2015 2.16.840.1.929696.4.391.11.61036 [facility] Unknown u06p2191-xo0g-2538-36s4-u9p1c407d276 07/15/2015 07/15/2015 2.16.840.1.299444.4.391.11.85556 [facility] Unknown 02zr5656-2m98-52mt-q578-20b42w3274e4 07/15/2015 07/15/2015 2.16.840.1.309754.4.391.11.88130 [facility] Unknown h6z75z75-6aiu-741v-6y7b-bfr3024ivl80 07/15/2015 07/15/2015 2.16.840.1.465944.4.391.11.46849 [facility] Unknown zt33zveq-75b7-7818-ok73-ah4b1mps60tu 07/15/2015 07/15/2015 2.16.840.1.735823.4.391.11.63150 [facility] Unknown kaz60d28-z868-5e6c-f273-781091jg45i9 07/15/2015 07/15/2015 2.16.840.1.464738.4.391.11.13108 [facility] 32hg541h-27m2-1stq-6i29-9u5w5a527547 07/15/2015 07/15/2015 2.16.840.1.507712.4.391.11.89803 [facility] t56kbp13-r9ke-7q48-33mr-9376w98g1597 07/15/2015 07/15/2015 2.16.840.1.235904.4.391.11.66172 [facility] Unknown d2m7lo6c-q6eb-4fnm-9268-h904q6x4an2s 07/15/2015 07/15/2015 2.16.840.1.907582.4.391.11.10988 [facility] 5g1y7lkd-804n-720d-3g36-3r2f3269o09e 07/15/2015 07/15/2015 2.16.840.1.796456.4.391.11.39452 [facility] a49a2l82-1d29-50hl-32u9-s061gaa5h29m 07/15/2015 07/15/2015 2.16.840.1.924623.4.391.11.49441 [facility] 91r634hd-5v74-8895-2e57-gwd68h7mu70z 07/15/2015 07/15/2015 2.16.840.1.117209.4.391.11.11276 [facility] le05k5m4-wc74-95rf-y0un-14q46o7121fy 07/15/2015 07/15/2015 2.16.840.1.403093.4.391.11.57973 [facility] Unknown 6q4f0661-db2b-9n89-2w99-bh98ks6w0s75 07/15/2015 07/15/2015 2.16.840.1.833172.4.391.11.29024 [facility] Unknown 635499t1-0u07-6857-em5g-e09d36z8u22b 07/15/2015 07/15/2015 2.16.840.1.604941.4.391.11.31381 [facility] zf1lb3o5-27l3-1fkr-u61u-w3787vo48z34 07/15/2015 07/15/2015 2.16.840.1.479333.4.391.11.21207 [facility] ky53t1g3-8zu8-377i-r73m-12a17g2f8s6l 07/15/2015 07/15/2015 2.16.840.1.614843.4.391.11.40211 [facility] Unknown hm39n4n3-g0q3-7w3m-bxo2-94ehs9j8634f 07/15/2015 07/15/2015 2.16.840.1.549965.4.391.11.96864 [facility] Unknown 4tjc79y8-b1zx-80b8-i29n-o8rd88069657 07/15/2015 07/15/2015 2.16.840.1.627023.4.391.11.60264 [facility] 1k3b2262-70o0-9u7w-x25o-589960tjn899 07/15/2015 07/15/2015 2.16.840.1.339679.4.391.11.04739 [facility] Unknown 545oic20-n2cp-18im-5evr-069a58j4rq48 07/15/2015 07/15/2015 2.16.840.1.256665.4.391.11.71848 [facility] Unknown g8241563-8k9z-9454-3cq8-60374t7s1v4q 07/15/2015 07/15/2015 2.16.840.1.832667.4.391.11.96960 [facility] Unknown 9dnr08gt-x710-3268-lfy8-3b12568z172l 07/15/2015 07/15/2015 2.16.840.1.380573.4.391.11.24098 [facility] Unknown q75852b2-0jq2-477p-514v-i59izek25v8o 07/15/2015 07/15/2015 2.16.840.1.962652.4.391.11.44434 [facility] Unknown ab571v07-k5w3-8751-11d5-z4e654280j2v 07/15/2015 07/15/2015 2.16.840.1.850434.4.391.11.74916 [facility] 205b0au0-o7a8-61o5-c2e5-8cggta930529 07/15/2015 07/15/2015 2.16.840.1.293395.4.391.11.14916 [facility] Unknown 7t3e965c-44zw-94i6-n863-y5q0p76z1365 07/15/2015 07/15/2015 2.16.840.1.516258.4.391.11.53078 [facility] i5433g94-488g-8014-l177-vg35p2c0eydw 07/15/2015 07/15/2015 2.16.840.1.178049.4.391.11.75673 [facility] 539222w2-772j-44k1-6l28-901w7agmv9q7 07/15/2015 07/15/2015 2.16.840.1.569330.4.391.11.30858 [facility] p53ux98j-9251-9889-7z66-uq93793f90g0 07/15/2015 07/15/2015 2.16.840.1.232350.4.391.11.05222 [facility] 63cho79d-8pg1-3e41-63t4-s83934q58w66 07/15/2015 07/15/2015 2.16.840.1.474321.4.391.11.79763 [facility] 3a9s823t-c0x9-13wo-691s-f57t530wyww7 07/15/2015 07/15/2015 2.16.840.1.573189.4.391.11.69682 [facility] mg0xnq57-6p37-4022-4g00-6u18ud36u45j 07/15/2015 07/15/2015 2.16.840.1.872683.4.391.11.06121 [facility] 414rqq6c-5x4q-246p-80g2-fmz0y392280p 07/15/2015 07/15/2015 2.16.840.1.753558.4.391.11.58391 [facility] x98dae12-u5m4-412y-8sd5-y1339k9a2i32 07/15/2015 07/15/2015 2.16.840.1.597723.4.391.11.16048 [facility] 4c27vrc9-h0yi-5477-18cx-d739w54d711o 07/15/2015 07/15/2015 2.16.840.1.550305.4.391.11.07173 [facility] 6q8142e5-j746-777q-4519-j082093338gw 07/15/2015 07/15/2015 2.16.840.1.529899.4.391.11.70879 [facility] n2696gox-e335-163m-9z5e-0v93m0hp2cy8 07/15/2015 07/15/2015 2.16.840.1.054995.4.391.11.14601 [facility] a2y50jh2-6226-518o-n970-hi4qap8742gv 07/15/2015 07/15/2015 2.16.840.1.075176.4.391.11.18158 [facility] 8u409p19-775e-38to-6am8-d5ukji5957ue 07/15/2015 07/15/2015 2.16.840.1.491328.4.391.11.67644 [facility] 538q11vx-5g5v-10z1-wgg2-0x46v9dxjz91 07/15/2015 07/15/2015 2.16.840.1.652748.4.391.11.79596 [facility] g344o639-4l37-46l7-851h-526rsc77d1my 07/15/2015 07/15/2015 2.16.840.1.641433.4.391.11.20729 [facility] 3r15l773-0029-7665-789v-q0871647uzd5 07/15/2015 07/15/2015 2.16.840.1.257941.4.391.11.18611 [facility] zk717m89-2t0p-4485-uzk4-8w2z46112gym 07/15/2015 07/15/2015 2.16.840.1.845466.4.391.11.49677 [facility] 99393111-w9pz-9lrm-v5kj-el86y6v8393v 07/30/2015 07/30/2015 2.16.840.1.434328.4.391.11.68527 [facility] u4t7fnq2-641z-0a7y-v7wm-511i14ft221n 07/30/2015 07/30/2015 2.16.840.1.681287.4.391.11.44867 [facility] 6b98224w-df0n-26q8-1508-hc3g69t7x6g1 07/30/2015 07/30/2015 2.16.840.1.539646.4.391.11.30060 [facility] m76519c1-2752-3y18-m3b4-o35t7h6w8sjc 07/30/2015 07/30/2015 2.16.840.1.075899.4.391.11.53584 [facility] elzs5421-ik56-260n-2ds6-0m986b2564we 07/30/2015 07/30/2015 2.16.840.1.300091.4.391.11.19411 [facility] r5lk33y8-03i8-2ut6-8365-1t2s1v25h187 07/30/2015 07/30/2015 2.16.840.1.171404.4.391.11.19995 [facility] d4b486u2-3834-63th-6a96-b7ct3j12f13l 07/30/2015 07/30/2015 2.16.840.1.828509.4.391.11.12266 [facility] 7yc4d238-2y2y-62u8-p116-6657287i8215 07/30/2015 07/30/2015 2.16.840.1.819648.4.391.11.95034 [facility] 839bp1u0-47c8-8y07-7623-k202u0j1o463 07/30/2015 07/30/2015 2.16.840.1.732277.4.391.11.70488 [facility] jkq20518-a1mt-51ks-n155-1663741ib8lb 07/30/2015 07/30/2015 2.16.840.1.357554.4.391.11.81308 [facility] k6529646-66k1-8cf3-r249-6512h7g3gehy 07/30/2015 07/30/2015 2.16.840.1.448930.4.391.11.26142 [facility] 206ql8mh-3l5u-0691-uu59-2x4ny4u4op2w 07/30/2015 07/30/2015 2.16.840.1.134263.4.391.11.44816 [facility] k926lq01-5586-04c1-ty00-742nn66c495n 07/30/2015 07/30/2015 2.16.840.1.915399.4.391.11.15947 [facility] s7173e6q-778z-3rx8-w643-050g52f6i89d 07/30/2015 07/30/2015 2.16.840.1.243471.4.391.11.09511 [facility] 071tf951-7m9b-2x93-2963-58b52l05ezi8 07/30/2015 07/30/2015 2.16.840.1.464923.4.391.11.14972 [facility] yk8a3805-5ro1-810z-s702-4552kt1e24so 07/30/2015 07/30/2015 2.16.840.1.529526.4.391.11.33840 [facility] Unknown [id number]-7uoi-328w-re94-l0ljuarim5ah 07/30/2015 07/30/2015 2.16.840.1.128270.4.391.11.59069 [facility] Unknown [id number]-a667-0yo4-q12n-97x1qfq80554 07/30/2015 07/30/2015 2.16.840.1.786611.4.391.11.96690 [facility] Unknown bin5j501-z37x-9w40-1u25-162p12142u9w 07/30/2015 07/30/2015 2.16.840.1.171725.4.391.11.79196 [facility] Unknown [id number]-[id number] 07/30/2015 07/30/2015 2.16.840.1.305956.4.391.11.50019 [facility] Unknown [id number]-447y-8t16-vwj9-s7v4jwevs12r 07/30/2015 07/30/2015 2.16.840.1.296915.4.391.11.53067 [facility] Unknown i9spw312-19k1-34f9-sx9r-[id number] 07/30/2015 07/30/2015 2.16.840.1.449540.4.391.11.99888 [facility] Unknown [id number]-21f6-cvy6-jec8v6672686 07/30/2015 07/30/2015 2.16.840.1.570056.4.391.11.55309 [facility] Unknown [id number]-qp2y-1401-u1kf-687ec26513t3 07/30/2015 07/30/2015 2.16.840.1.007518.4.391.11.94660 [facility] Unknown [id number]-xx01-95d4-03j2-2w6793l7m9w2 07/30/2015 07/30/2015 2.16.840.1.915286.4.391.11.50986 [facility] Unknown [id number]-[id number]-pww16v8c49k3 07/30/2015 07/30/2015 2.16.840.1.713922.4.391.11.24102 [facility] Unknown eg27n770-56o4-5944-ue74-2u29z53y0dq1 07/30/2015 07/30/2015 2.16.840.1.171097.4.391.11.17447 [facility] Unknown znkr9j42-3897-5maf-01bk-368w4t695r1r 08/09/2015 08/09/2015 2.16.840.1.729395.4.391.11.14040 [facility] Unknown ffa70alf-a7c2-5346-m9r7-842h9o22g255 08/09/2015 08/09/2015 2.16.840.1.037335.4.391.11.50312 [facility] Unknown 3g90721k-y9j1-86p5-2h4r-rs4e74ne6o1r 08/09/2015 08/09/2015 2.16.840.1.975853.4.391.11.62218 [facility] Unknown [id number]-23ez-56i4-0em4-28rem9wb4l52 08/09/2015 08/09/2015 2.16.840.1.765343.4.391.11.10380 [facility] Unknown [id number]-rh9z-1422-c0h1-zvr6zhy5m819 08/09/2015 08/09/2015 2.16.840.1.311754.4.391.11.51170 [facility] Unknown 1906r2e8-43r3-8g14-x2l3-7an966m37z41 08/09/2015 08/09/2015 2.16.840.1.709368.4.391.11.39065 [facility] Unknown [id number]-1299-1q13-15p01aem4888 08/09/2015 08/09/2015 2.16.840.1.352279.4.391.11.15901 [facility] Unknown [id number]-4r4n-28i0-y8iz-5a3ljq4djalq 08/09/2015 08/09/2015 2.16.840.1.383038.4.391.11.44383 [facility] Unknown [id number]-kh2j-tx71v40245k9 08/09/2015 08/09/2015 2.16.840.1.708130.4.391.11.70455 [facility] Unknown [id number]-o0ju-88cn-788v-t32baj9ti69w 08/09/2015 08/09/2015 2.16.840.1.594221.4.391.11.88679 [facility] Unknown n3x2pnp1-45hu-9q33-b348-21a866yx4f7d 08/09/2015 08/09/2015 2.16.840.1.349208.4.391.11.49369 [facility] Unknown [id number]-v50f-108j-qn5n-2w6zsj42kdc8 08/09/2015 08/09/2015 2.16.840.1.170663.4.391.11.50341 [facility] Unknown [id number]-k760-3420-80ak-1825d9723d2g 08/09/2015 08/09/2015 2.16.840.1.439303.4.391.11.21976 [facility] Unknown [id number]-3883-339eqoc38775 08/09/2015 08/09/2015 2.16.840.1.393438.4.391.11.82490 [facility] Unknown [id number]-siwr-929t02403au9 08/09/2015 08/09/2015 2.16.840.1.142366.4.391.11.25361 [facility] Unknown [id number]-7r87-pq0w-8109ipy74d93 08/09/2015 08/09/2015 2.16.840.1.558081.4.391.11.60827 [facility] Unknown [id number]-9843-73bx-639f-nai3zw0z5v65 08/09/2015 08/09/2015 2.16.840.1.711449.4.391.11.64667 [facility] Unknown [id number]-a054-6ga73945c2g3 08/09/2015 08/09/2015 2.16.840.1.175740.4.391.11.82467 [facility] Unknown [id number]-wi25-5028-4gd5-n87o7cb97q71 08/09/2015 08/09/2015 2.16.840.1.367616.4.391.11.57708 [facility] Unknown a80zk5d5-6554-9i9h-s802-0z50oo15xhv4 08/09/2015 08/09/2015 2.16.840.1.268526.4.391.11.34847 [facility] Unknown [id number]-ood43tf3x31l 08/09/2015 08/09/2015 2.16.840.1.826888.4.391.11.24595 [facility] Unknown zx88485q-3143-378f-2fb6-ly742e4f9330 08/09/2015 08/09/2015 2.16.840.1.052687.4.391.11.82685 [facility] Unknown ad7s1y2g-3469-332l-k880-57p580g8784d 08/09/2015 08/09/2015 2.16.840.1.676875.4.391.11.38197 [facility] Unknown 9vrud7h6-jzk9-2669-y193-g2t5386q9zx2 08/09/2015 08/09/2015 2.16.840.1.668640.4.391.11.82789 [facility] Unknown [id number]-2i5b-d0p38946bw4y 08/09/2015 08/09/2015 2.16.840.1.257635.4.391.11.83691 [facility] Unknown [id number]-v805-454e-c394-7y8co918c9u5 08/09/2015 08/09/2015 2.16.840.1.097749.4.391.11.95094 [facility] Unknown 64mjswvp-0pmt-861o-aae9-s2m46372f41e 08/26/2015 08/26/2015 2.16.840.1.303626.4.391.11.06883 [facility] Unknown [id number]-[id number] 08/26/2015 08/26/2015 2.16.840.1.532195.4.391.11.54764 [facility] Unknown [id number]-7o11009e6jsm 08/26/2015 08/26/2015 2.16.840.1.094216.4.391.11.61517 [facility] Unknown i9i8hp74-0t5f-6u38-c258-q737s752439s 08/26/2015 08/26/2015 2.16.840.1.931358.4.391.11.17966 [facility] Unknown 78k8s6e6-9a9u-53w8-6u59-ise7x9jk5e11 08/26/2015 08/26/2015 2.16.840.1.377607.4.391.11.75745 [facility] Unknown [id number]-z62z-8w60-38t1-879056y359qm 08/26/2015 08/26/2015 2.16.840.1.284872.4.391.11.72462 [facility] Unknown [id number]-uic4-q172v0226z4j 08/26/2015 08/26/2015 2.16.840.1.053412.4.391.11.91977 [facility] Unknown 72o8zlt7-iuyp-0080-6549-4e9o3w087n86 08/26/2015 08/26/2015 2.16.840.1.834250.4.391.11.73198 [facility] Unknown [id number]-03z7-6572-7vp4-p2031ba0qs7r 08/26/2015 08/26/2015 2.16.840.1.705871.4.391.11.11484 [facility] Unknown l674xl7b-7o13-0724-3t26-yxexc3cq7235 08/26/2015 08/26/2015 2.16.840.1.235960.4.391.11.41207 [facility] Unknown [id number]-p43y-[id number] 08/26/2015 08/26/2015 2.16.840.1.360599.4.391.11.24276 [facility] Unknown [id number]-4c7987jf915l 08/26/2015 08/26/2015 2.16.840.1.249114.4.391.11.16297 [facility] Unknown [id number]-kkd5-7f68-g1tg-4k57p6w4oy79 08/26/2015 08/26/2015 2.16.840.1.528688.4.391.11.64522 [facility] Unknown [id number]-46x8-5r4u67m4-2q6b-k24f-[id number] 08/26/2015 08/26/2015 2.16.840.1.447765.4.391.11.03331 [facility] Unknown [id number]05z 08/26/2015 08/26/2015 2.16.840.1.769290.4.391.11.22588 [facility] Unknown [id number]-[id number] 08/26/2015 08/26/2015 2.16.840.1.243970.4.391.11.79569 [facility] Unknown [id number]-3r7d-0hq8-37wd-u191l41d77s6 08/26/2015 08/26/2015 2.16.840.1.704625.4.391.11.29351 [facility] Unknown [id number]-1v9e-7a8m-gve5-9niau7x2vafv 08/26/2015 08/26/2015 2.16.840.1.674438.4.391.11.06212 [facility] [facility] 51f12vn1-22zt-1q10-de21-1214352o11b2 08/26/2015 08/26/2015 2.16.840.1.116353.4.391.11.77071 [facility] Unknown a9914bae-849r-5wpo-1lys-4ip12291w41e 08/26/2015 08/26/2015 2.16.840.1.528686.4.391.11.23720 [facility] Unknown 0n73552p-715f-1498-2m4y-84ii227j0618 08/26/2015 08/26/2015 2.16.840.1.513108.4.391.11.42329 [facility] Unknown 4l6410q7-yyw9-0d63-a61u-08510qt5ga2n 08/26/2015 08/26/2015 2.16.840.1.162047.4.391.11.03421 [facility] Unknown ffja1n02-737v-36xn-9f4h-63o2qdt66do2 08/26/2015 08/26/2015 2.16.840.1.307382.4.391.11.08537 [facility] Unknown k9o715a8-3132-9594-s948-889886805507 08/26/2015 08/26/2015 2.16.840.1.449841.4.391.11.57426 [facility] Unknown 15764973-6451-3893-4h50-eo0u5492bl70 08/30/2015 08/30/2015 2.16.840.1.407289.4.391.11.06762 [facility] Unknown n2660p89-7a06-3662-mm40-3q239l3x8563 08/30/2015 08/30/2015 2.16.840.1.666605.4.391.11.77650 [facility] Unknown p3v54h6m-da38-4f8i-p7t1-f54y48jyc37f 08/30/2015 08/30/2015 2.16.840.1.163113.4.391.11.38656 [facility] Unknown t6j7a07o-914x-2tub-1u7p-137d08ypt263 08/30/2015 08/30/2015 2.16.840.1.392727.4.391.11.54423 [facility] Unknown 162i3lyl-5g20-2e63-03c0-7um810464kup 08/30/2015 08/30/2015 2.16.840.1.174144.4.391.11.10248 [facility] Unknown mu02z59q-5np5-016g-26gc-66285by4369s 08/30/2015 08/30/2015 2.16.840.1.536322.4.391.11.25290 [facility] Unknown 34z843q9-y12f-599t-k82u-vs6982y62e32 08/30/2015 08/30/2015 2.16.840.1.678755.4.391.11.15455 [facility] Unknown 7v0b12l0-rw0s-3i44-13ss-14m3e842d485 08/30/2015 08/30/2015 2.16.840.1.140612.4.391.11.25283 [facility] Unknown 81j67t00-4f57-2411-9x93-f8zd07978639 08/30/2015 08/30/2015 2.16.840.1.762060.4.391.11.85389 [facility] Unknown 8zb41448-819x-616a-8e3d-110a0285cg55 08/30/2015 08/30/2015 2.16.840.1.899957.4.391.11.68554 [facility] Unknown -z350-8669-0c91-c8g164a30407 08/30/2015 08/30/2015 2.16.840.1.166493.4.391.11.82402 [facility] Unknown 91t6vgo8-880w-7ssr-25p8-8how1526wis1 08/30/2015 08/30/2015 2.16.840.1.179527.4.391.11.10589 [facility] Unknown 904rmp2g-54vb-8k84-xsci-ra9954118by0 08/30/2015 08/30/2015 2.16.840.1.323484.4.391.11.50869 [facility] Unknown y09jc85x-5y6f-6pj9-2b64-r35ksh90dn79 08/30/2015 08/30/2015 2.16.840.1.003253.4.391.11.39277 [facility] Unknown i1658947-26r1-2732-5881-17b8544fm5i2 08/30/2015 08/30/2015 2.16.840.1.461921.4.391.11.41292 [facility] Unknown xms1v45c-770q-6m80-a1wu-y80mc6gz9086 08/30/2015 08/30/2015 2.16.840.1.237104.4.391.11.65722 [facility] Unknown 485669j8-c23i-6862-69r5-4436n76f1u30 08/30/2015 08/30/2015 2.16.840.1.586509.4.391.11.30645 [facility] Unknown v11vyo40-0zm7-5bq8-n4x1-39a1gt2g465f 08/30/2015 08/30/2015 2.16.840.1.170146.4.391.11.74642 [facility] Unknown 1y73z56o-q89o-4of8-e8g2-79nj2k1cuj62 08/30/2015 08/30/2015 2.16.840.1.390783.4.391.11.95218 [facility] Unknown 298b2a37-484p-59g8-n9f1-e628n954ax90 08/30/2015 08/30/2015 2.16.840.1.473677.4.391.11.76003 [facility] Unknown 5nlt1jvi-d27f-45j4-08o0-xb6xrg747348 08/30/2015 08/30/2015 2.16.840.1.294031.4.391.11.37015 [facility] Unknown f4n55358-6d9d-589e-x778-eedk44736114 08/30/2015 08/30/2015 2.16.840.1.189560.4.391.11.96281 [facility] Unknown d752mf21-2901-67e6-tp56-a9s87th441r3 08/30/2015 08/30/2015 2.16.840.1.236501.4.391.11.53609 [facility] Unknown 5206h3n3-msl6-9bp5-1055-ha48ntd81431 08/30/2015 08/30/2015 2.16.840.1.473841.4.391.11.93425 [facility] Unknown qlgh48bd-h937-4446-h708-251vh463r69w 08/30/2015 08/30/2015 2.16.840.1.832331.4.391.11.02249 [facility] 2 WEEK F/U i5zd3j7l-g579-9x65-ov63-781x737gyu52 09/21/2015 09/21/2015 2.16.840.1.693169.4.391.11.78716 [facility] 2 WEEK F/U 2h284e00-23p0-906w-2l79-8d3tz8918432 09/21/2015 09/21/2015 2.16.840.1.749480.4.391.11.91660 [facility] 2 WEEK F/U 994041q5-o197-1e9j-41rd-c4053a2m7kmb 09/21/2015 09/21/2015 2.16.840.1.413988.4.391.11.44505 [facility] 2 WEEK F/U 95p7d51e-0667-9545-91x5-215479aoe106 09/21/2015 09/21/2015 2.16.840.1.060691.4.391.11.80871 [facility] 2 WEEK F/U 38j962i3-6p40-377x-j958-27hou6391889 09/21/2015 09/21/2015 2.16.840.1.462181.4.391.11.23206 [facility] 2 WEEK F/U 32js3363-ugzx-9323-2j1r-03756n7s1j9t 09/21/2015 09/21/2015 2.16.840.1.352114.4.391.11.64494 [facility] 2 WEEK F/U bc9k9i5p-k386-9188-uxl8-48v375s78jxv 09/21/2015 09/21/2015 2.16.840.1.757268.4.391.11.93529 [facility] 2 WEEK F/U 43591448-g280-7i42-4mcg-lvfr2z25nf69 09/21/2015 09/21/2015 2.16.840.1.700860.4.391.11.50224 [facility] 2 WEEK F/U 9v9x74iu-nn60-8525-xonx-6t11t093w9n0 09/21/2015 09/21/2015 2.16.840.1.107575.4.391.11.25069 [facility] 2 WEEK F/U ukfw9s24-112s-0441-7b8y-403r406913u8 09/21/2015 09/21/2015 2.16.840.1.942980.4.391.11.37929 [facility] 2 WEEK F/U 3t30j1k4-2477-2k09-k50o-nj86ksdtky2c 09/21/2015 09/21/2015 2.16.840.1.144359.4.391.11.08975 [facility] 2 WEEK F/U 3w7qiwu7-bs4e-0e2s-p7i2-9340a246a673 09/21/2015 09/21/2015 2.16.840.1.617243.4.391.11.57237 [facility] 2 WEEK F/U 229x49rt-72ps-04h9-7o66-7465q8z3b40w 09/21/2015 09/21/2015 2.16.840.1.554017.4.391.11.43344 [facility] 2 WEEK F/U 4h8v83og-895a-6965-a73i-635d6623aa4b 09/21/2015 09/21/2015 2.16.840.1.016048.4.391.11.11130 [facility] 2 WEEK F/U 33xv7299-3889-053a-y886-l5852u203l43 09/21/2015 09/21/2015 2.16.840.1.274131.4.391.11.23168 [facility] 2 WEEK F/U 54dg047e-r001-4657-v1d4-3d6hc02dx2dm 09/21/2015 09/21/2015 2.16.840.1.450190.4.391.11.71297 [facility] 2 WEEK F/U c5o203ns-2w88-0964-72r9-49qc1a01d75c 09/21/2015 09/21/2015 2.16.840.1.678958.4.391.11.59890 [facility] 2 WEEK F/U 064tfc71-5970-19gq-8u41-3f65125228t6 09/21/2015 09/21/2015 2.16.840.1.946257.4.391.11.75999 [facility] 2 WEEK F/U ao3l9084-40ls-39b4-9lr1-iqv8cgw571vk 09/21/2015 09/21/2015 2.16.840.1.089250.4.391.11.29553 [facility] 2 WEEK F/U k82qv097-9654-6w62-b520-45n4567r64r1 09/21/2015 09/21/2015 2.16.840.1.314572.4.391.11.63403 [facility] 2 WEEK F/U 5c443197-79f9-2ihn-99r4-25f1ip353qe5 09/21/2015 09/21/2015 2.16.840.1.641106.4.391.11.44948 [facility] 2 WEEK F/U e63gw1i6-wi3a-8608-3p90-u41pa533yrn8 09/21/2015 09/21/2015 2.16.840.1.278084.4.391.11.34845 [facility] 2 WEEK F/U 8512970i-9c8x-9p6s-duw8-p9687m808523 09/21/2015 09/21/2015 2.16.840.1.423489.4.391.11.45208 [facility] Unknown ziv58a3n-5pqx-4s3k-5x76-r6i38g0vfpeq 2015 2015 2.16.840.1.336125.4.391.11.09688 [facility] Unknown 546g2s15-n64m-6677-h477-6a476n648lt1 2015 2015 2.16.840.1.324783.4.391.11.80487 [facility] Unknown 9nj71a59-k636-6eht-exj2-1d2z045701e6 2015 2015 2.16.840.1.963786.4.391.11.22734 [facility] Unknown le7df0z4-70rm-340t-38r7-5v34e536o1x0 2015 2015 2.16.840.1.834385.4.391.11.38475 [facility] Unknown 9e26st75-j0y9-5o0z-58m2-u6b6qy4i2347 2015 2015 2.16.840.1.499898.4.391.11.09561 [facility] Unknown 8276xii9-117g-828f-n6e6-g6i56237977x 2015 2015 2.16.840.1.566176.4.391.11.64899 [facility] Unknown 72rh3xbb-o176-50m0-g285-fr71870wm7rq 2015 2015 2.16.840.1.650138.4.391.11.46259 [facility] Unknown l7658zrw-4xjg-8dc7-m8rc-7rq4n6z1ey1o 2015 2015 2.16.840.1.883395.4.391.11.88450 [facility] Unknown 7941z6n4-i918-4953-ib0v-246o07m7732r 2015 2015 2.16.840.1.925493.4.391.11.51612 [facility] Unknown o8556uh1-s2yj-41c9-zs5g-2msc61q4ql19 2015 2015 2.16.840.1.361228.4.391.11.54523 [facility] Unknown 7898g53f-6h93-1su6-1kh0-ku21e64325gz 2015 2015 2.16.840.1.740565.4.391.11.11977 [facility] Unknown 8b3e2y36-701z-502n-r76s-6258l07246pa 2015 2015 2.16.840.1.985793.4.391.11.27498 [facility] Unknown 11u35t13-4h7d-95y7-at59-1621spj3g247 2015 2015 2.16.840.1.068130.4.391.11.18617 [facility] Unknown rtx10y11-03x1-4h90-1173-56d38v473m11 2015 2015 2.16.840.1.002902.4.391.11.41316 [facility] Unknown 2g028ar6-ck76-923e-486y-3cp643470si2 2015 2015 2.16.840.1.568676.4.391.11.57344 [facility] Unknown 4i3o6dk7-9a79-2200-a259-580612m254u9 2015 2015 2.16.840.1.457340.4.391.11.68973 [facility] Unknown 30h3y874-ld98-90q1-xr91-9t3d34ti3cbp 2015 2015 2.16.840.1.072731.4.391.11.68249 [facility] Unknown lw87b9pr-2565-3141-9jl5-9v80672l0277 2015 2015 2.16.840.1.098331.4.391.11.52274 [facility] Unknown oj350mbp-0757-6ks4-831w-hkv9a8947922 2015 2015 2.16.840.1.167367.4.391.11.73957 [facility] Unknown 99qlcp8k-4357-2ynv-0994-6s6p4m0v8hig 2015 2015 2.16.840.1.535486.4.391.11.21231 [facility] Unknown k5f6zq63-g267-5182-9v91-5h0n4f6426rx 2015 2015 2.16.840.1.843669.4.391.11.31405 [facility] Unknown 516t3f2c-5m45-031l-5128-r59i42d43dbu 11/15/2015 11/15/2015 2.16.840.1.650562.4.391.11.19774 [facility] Unknown 3g3t3155-4k0s-9f6k-5755-3mpi4247eg6l 11/15/2015 11/15/2015 2.16.840.1.193735.4.391.11.62335 [facility] Unknown 6t529775-2600-3c02-g78t-289f960e9t06 11/15/2015 11/15/2015 2.16.840.1.158158.4.391.11.22673 [facility] Unknown j6gm9084-449f-71n3-o210-2822nk90hn14 11/15/2015 11/15/2015 2.16.840.1.596846.4.391.11.19793 [facility] Unknown 3u58b782-u9cp-1y7v-56rc-x070317666n7 11/15/2015 11/15/2015 2.16.840.1.232492.4.391.11.38686 [facility] Unknown 46zj6dy7-w2yl-01wr-0404-2be23vrz31d4 11/15/2015 11/15/2015 2.16.840.1.869638.4.391.11.43243 [facility] Unknown jl793413-n70n-2576-j097-8whm9a26350m 11/15/2015 11/15/2015 2.16.840.1.444851.4.391.11.41197 [facility] Unknown 437u7lny-fz3k-42no-6to8-338k6d6p2632 11/15/2015 11/15/2015 2.16.840.1.840418.4.391.11.63290 [facility] Unknown yq395461-ma98-7470-6606-2qq00p235dk1 11/15/2015 11/15/2015 2.16.840.1.986351.4.391.11.49097 [facility] Unknown 2l2o04jw-88e3-3rj9-1765-607y80z1y2e0 11/15/2015 11/15/2015 2.16.840.1.352121.4.391.11.11656 [facility] Unknown x6736x8h-k252-897v-5xxq-6h59p5464292 11/15/2015 11/15/2015 2.16.840.1.258213.4.391.11.90044 [facility] Unknown 61756xt4-4625-35gd-oan9-rp19y9fw63t2 11/15/2015 11/15/2015 2.16.840.1.027076.4.391.11.37612 [facility] Unknown l9x38270-yl79-4270-0540-867g7448b713 11/15/2015 11/15/2015 2.16.840.1.833638.4.391.11.93667 [facility] Unknown h4971931-829e-66xs-ap6f-8066j2070833 11/15/2015 11/15/2015 2.16.840.1.361696.4.391.11.53573 [facility] Unknown 254pk7h2-j746-9895-07xs-n9u2f63dzoe0 11/15/2015 11/15/2015 2.16.840.1.103481.4.391.11.21313 [facility] Unknown kigj0g2g-18ui-75gu-dhx1-5sz9724s0j29 11/15/2015 11/15/2015 2.16.840.1.874478.4.391.11.99677 [facility] Unknown av46p7a8-x3x1-107p-opp8-1023iw67q6ip 11/15/2015 11/15/2015 2.16.840.1.329198.4.391.11.79049 [facility] Unknown btl47ta7-96kz-7y61-bz92-838601615k3l 11/15/2015 11/15/2015 2.16.840.1.634712.4.391.11.59213 [facility] Unknown 07nxo7xm-8248-1xpn-azto-v8u75pxg4h5e 11/15/2015 11/15/2015 2.16.840.1.490837.4.391.11.92921 [facility] Unknown 1zn8f78b-0280-6a7c-j9at-851j9395976d 11/15/2015 11/15/2015 2.16.840.1.769569.4.391.11.73724 [facility] Unknown 467cls59-25a5-8et4-s799-09w3k8c2vdhj 11/15/2015 11/15/2015 2.16.840.1.362726.4.391.11.79419 [facility] Unknown 01h565l0-m59q-6460-56p1-d0x2ua8x22f9 11/15/2015 11/15/2015 2.16.840.1.243146.4.391.11.84080 [facility] Unknown 01fsv89b-04b5-26f7-pdb5-73ge017v77eb 11/19/2015 11/19/2015 2.16.840.1.984622.4.391.11.81869 [facility] Unknown 82zw2502-0ci6-4136-8x49-16y3wbgn5q9q 11/19/2015 11/19/2015 2.16.840.1.875223.4.391.11.03838 [facility] Unknown 4u1179p6-y779-98dn-r050-2ya8w9wpe493 11/19/2015 11/19/2015 2.16.840.1.074667.4.391.11.71651 [facility] Unknown 3d085g64-05i1-15z7-mc39-w74n83f32xpa 11/19/2015 11/19/2015 2.16.840.1.683207.4.391.11. [facility] Unknown 0ma627e1-f170-2j69-s6i0-39w600644y52 11/19/2015 11/19/2015 2.16.840.1.295174.4.391.11.63044 [facility] Unknown 3z6129tp-621t-7197-0r46-pz04tnn957j3 11/19/2015 11/19/2015 2.16.840.1.725537.4.391.11.71150 [facility] Unknown 616q2n54-5ub5-551n-hvbi-0a918r6a0505 11/19/2015 11/19/2015 2.16.840.1.858152.4.391.11.97012 [facility] Unknown 326fvbo8-r3nw-31w9-5736-8nay0xf162wy 11/19/2015 11/19/2015 2.16.840.1.727474.4.391.11.64214 [facility] Unknown 31c03t01-82sb-3076-2891-99l867t356nu 11/19/2015 11/19/2015 2.16.840.1.139544.4.391.11.50933 [facility] Unknown v55g04s8-c1ry-8927-n187-067cc9w90puf 11/19/2015 11/19/2015 2.16.840.1.603185.4.391.11.34660 [facility] Unknown q3ns54h2-29xq-76r3-8424-92e18ur2ck2p 11/19/2015 11/19/2015 2.16.840.1.570712.4.391.11.83420 [facility] Unknown 39w9aq3y-nsje-82wk-iy8z-9j04pyt4a0b6 11/19/2015 11/19/2015 2.16.840.1.224446.4.391.11.06974 [facility] Unknown 72i6115q-v609-95gi-877k-u1cx9m000o94 11/19/2015 11/19/2015 2.16.840.1.850572.4.391.11.77070 [facility] Unknown 9z64p936-how3-103r-vk53-p1396kgt33sx 11/19/2015 11/19/2015 2.16.840.1.677320.4.391.11.05025 [facility] Unknown p27ve93b-7mc2-7127-42mu-du57u0410445 11/19/2015 11/19/2015 2.16.840.1.581575.4.391.11.42596 [facility] Unknown 42399y11-c063-8f17-568s-12kej3q1q1w3 11/19/2015 11/19/2015 2.16.840.1.446370.4.391.11.54312 [facility] Unknown 2902bz2r-1025-6g64-e5ed-gbk46t227iyr 11/19/2015 11/19/2015 2.16.840.1.544638.4.391.11.00725 [facility] Unknown 81dfhy5u-n0bv-2940-a0jv-9724qa2l0q4j 11/19/2015 11/19/2015 2.16.840.1.731180.4.391.11.76347 [facility] Unknown 1wah5066-ac86-5i50-t027-a824268j3o8b 11/19/2015 11/19/2015 2.16.840.1.108358.4.391.11.96178 [facility] Unknown 5l23x9z2-nv60-14n9-p954-3846r3lt6w9y 11/19/2015 11/19/2015 2.16.840.1.028548.4.391.11.02533 [facility] 2 week f/u - UTI 3556np4g-tb73-29p1-2bf5-89f2rj9fmp35 11/30/2015 11/30/2015 2.16.840.1.114544.4.391.11.42176 [facility] 2 week f/u - UTI 8eh8a7m7-0rc9-3077-1718-1034sn9c576c 11/30/2015 11/30/2015 2.16.840.1.793734.4.391.11.75971 [facility] 2 week f/u - UTI 67fh241o-824f-38w7-u666-cnfo8746n591 11/30/2015 11/30/2015 2.16.840.1.775965.4.391.11.42173 [facility] 2 week f/u - UTI 35o28y4y-g1u0-9496-q8ck-u260653n7r5m 11/30/2015 11/30/2015 2.16.840.1.933883.4.391.11.33536 [facility] 2 week f/u - UTI 1mu68070-r16j-95uy-16b0-z18zq236j3o3 11/30/2015 11/30/2015 2.16.840.1.781586.4.391.11.67883 [facility] 2 week f/u - UTI 776377x1-r01m-6015-73n7-2ws412f63760 11/30/2015 11/30/2015 2.16.840.1.973927.4.391.11.11963 [facility] 2 week f/u - UTI 24612744-1700-1ysn-km5q-5x27zy93104f 11/30/2015 11/30/2015 2.16.840.1.710033.4.391.11.19921 [facility] 2 week f/u - UTI 11990xpx-1233-8l08-9364-5gx32t6y0z8z 11/30/2015 11/30/2015 2.16.840.1.293080.4.391.11.99935 [facility] 2 week f/u - UTI 17e41d0y-35s7-6u18-8swf-ka5691ic9eqb 11/30/2015 11/30/2015 2.16.840.1.816205.4.391.11.69643 [facility] 2 week f/u - UTI 72nf67qt-1832-8n66-uh23-q4940aq655u4 11/30/2015 11/30/2015 2.16.840.1.320704.4.391.11.30513 [facility] 2 week f/u - UTI 0ev5sp4h-6359-33gh-7zpw-17bf6d0sujt8 11/30/2015 11/30/2015 2.16.840.1.336066.4.391.11.24681 [facility] 2 week f/u - UTI i622022u-9m12-242t-yj41-90l2zp244506 11/30/2015 11/30/2015 2.16.840.1.650683.4.391.11.15284 [facility] 2 week f/u - UTI 6pw92h6b-47f3-7i67-84r6-f43v06947110 11/30/2015 11/30/2015 2.16.840.1.722420.4.391.11.57959 [facility] 2 week f/u - UTI 49wrl706-2j8m-186v-95u9-or0hwm8c2985 11/30/2015 11/30/2015 2.16.840.1.383867.4.391.11.77583 [facility] 2 week f/u - UTI ue0x4675-7n32-8059-1751-6553041863nu 11/30/2015 11/30/2015 2.16.840.1.397524.4.391.11.85490 [facility] 2 week f/u - UTI 9s816032-3529-3819-8mv3-0236s8sby2mj 11/30/2015 11/30/2015 2.16.840.1.995529.4.391.11.33737 [facility] 2 week f/u - UTI 48058w30-5s17-3270-8a71-ld435s74qb5r 11/30/2015 11/30/2015 2.16.840.1.018389.4.391.11.81641 [facility] 2 week f/u - UTI 1120790z-731m-3s6b-ghmj-63ob10570y17 11/30/2015 11/30/2015 2.16.840.1.631068.4.391.11.40173 [facility] Unknown [id number]-k2t1-6v04-wii4-04722l4759a0 12/06/2015 12/06/2015 2.16.840.1.301506.4.391.11.01271 [facility] Unknown 5pa5yy23-6r09-642f-g5f7-0t68e0972ttt 12/06/2015 12/06/2015 2.16.840.1.139159.4.391.11.95254 [facility] Unknown 4aoir3zm-18i6-7kg9-y81q-3e7a9bo2713s 12/06/2015 12/06/2015 2.16.840.1.903369.4.391.11.16469 [facility] Unknown [id number]-ba14-725b-p056-e0v19gs5l2c9 12/06/2015 12/06/2015 2.16.840.1.042927.4.391.11.12659 [facility] Unknown kk12vl91-0091-5271-145i-h2k05q9f7lwe 12/06/2015 12/06/2015 2.16.840.1.830060.4.391.11.83965 [facility] Unknown [id number]-t336-73gtj56z510m 12/06/2015 12/06/2015 2.16.840.1.943612.4.391.11.70237 [facility] Unknown 38gop5l0-96o2-415f-g0l1-kf000zy487v3 12/06/2015 12/06/2015 2.16.840.1.527328.4.391.11.54017 [facility] Unknown [id number]-2090-82z8-wzk1-60dkwynj8n73 12/06/2015 12/06/2015 2.16.840.1.352946.4.391.11.48329 [facility] Unknown k22zf70y-44p1-56o2-f629-329342re3514 12/06/2015 12/06/2015 2.16.840.1.084262.4.391.11.79058 [facility] Unknown [id number]-y36o-62m4-5282-j54c1d308dy0 12/06/2015 12/06/2015 2.16.840.1.224933.4.391.11.56830 [facility] Unknown [id number]-s60p-91oko699bu68 12/06/2015 12/06/2015 2.16.840.1.864185.4.391.11.77693 [facility] Unknown v2w96wv4-6nbr-35nn-ze6q-5q31m6y8f1se 12/06/2015 12/06/2015 2.16.840.1.733411.4.391.11.43438 [facility] Unknown z3ax522p-s085-956t-qjdo-y9c54789k89u 12/06/2015 12/06/2015 2.16.840.1.487117.4.391.11.26981 [facility] Unknown p1m849vc-4o7l-8365-0515-ud5s02ov0wqu 12/06/2015 12/06/2015 2.16.840.1.837349.4.391.11.68392 [facility] Unknown [id number]-h9p2-3671-w79n-33i3904574nf 12/06/2015 12/06/2015 2.16.840.1.049565.4.391.11.73790 [facility] Unknown [id number]-zl68-4cx4-82g1-vns3un7976jn 12/06/2015 12/06/2015 2.16.840.1.252803.4.391.11.10012 [facility] Unknown wrt8w99u-8irs-3x9i-1107-ac1gb2377738 12/06/2015 12/06/2015 2.16.840.1.573331.4.391.11.28958 [facility] Unknown [id number]-2sag-8200-j696-789l69x97y7o 12/06/2015 12/06/2015 2.16.840.1.949669.4.391.11.95758 [facility] Unknown [id number]-3o9d-417c-8v7v358274h9 12/06/2015 12/06/2015 2.16.840.1.038803.4.391.11.02670 [facility] Outpatient [id number] Magno Delong 12/22/2015 12/23/2015 [facility] Unknown [id number] 05/17/2016 05/17/2016 2.16.840.1.883816.4.391.11.53345 [facility] Unknown [id number]-w4b7-5k0q-8ai8-5d984u54g7e9 05/17/2016 05/17/2016 2.16.840.1.148625.4.391.11.57598 [facility] Unknown 6l666fn9-g1kr-0aji-tkqm-b779f6o536tg 05/17/2016 05/17/2016 2.16.840.1.823888.4.391.11.81947 [facility] Unknown 94s321hg-6a55-64l4-76x3-5tly4oj44izi 05/17/2016 05/17/2016 2.16.840.1.580932.4.391.11.22829 [facility] Unknown e681l23t-g568-9223-0975-vccw271b4tc4 05/17/2016 05/17/2016 2.16.840.1.159244.4.391.11.35264 [facility] Unknown 666t57be-ev06-7851-y217-6p1i381qtx7n 05/17/2016 05/17/2016 2.16.840.1.422771.4.391.11.65618 [facility] Unknown gf95j21s-20eu-2385-u552-ou75479hsk98 05/17/2016 05/17/2016 2.16.840.1.146161.4.391.11.52005 [facility] Unknown pl365fe8-0p46-18yc-f25u-98ng601e1561 05/17/2016 05/17/2016 2.16.840.1.246064.4.391.11.74134 [facility] Unknown [id number]-9t50-8z0h-i8l6-o36187i5800j 05/17/2016 05/17/2016 2.16.840.1.679774.4.391.11.26971 [facility] Unknown [id number]-y701-95n0-lu0d-h4664jjh901k 05/17/2016 05/17/2016 2.16.840.1.328850.4.391.11.31756 [facility] Unknown [id number]-a08l-4002-n6et-9v9mxh965e18 05/17/2016 05/17/2016 2.16.840.1.904942.4.391.11.68541 [facility] Unknown 6zk263dj-9156-841q-s1m3-937vox2n66so 05/17/2016 05/17/2016 2.16.840.1.830054.4.391.11.96268 [facility] Unknown 45z7h1d9-dcmj-748p-6rb4-4k2vb5iaxxr5 05/17/2016 05/17/2016 2.16.840.1.180954.4.391.11.89876 [facility] Unknown 396c9e83-3669-65xc-c265-p7t16318s3tm 05/17/2016 05/17/2016 2.16.840.1.545770.4.391.11.37222 [facility] Unknown 96d440xs-09yo-9k33-1313-32h6754k805g 05/17/2016 05/17/2016 2.16.840.1.332228.4.391.11. [facility] Unknown hewa7y6o-63n4-2129-a39t-84j993051qct 05/17/2016 05/17/2016 2.16.840.1.948211.4.391.11.36043 [facility] [id number]-129a-bjt9-63k972awna22 05/17/2016 05/17/2016 2.16.840.1.962822.4.391.11.64287 [facility] Inpatient [id number] Alexey Cruz 05/28/2016 05/29/2016 [facility] f/u [id number]-j92b-3sva-03n3-36vf5644ug5o 06/01/2016 06/01/2016 2.16.840.1.614693.4.391.11.82847 [facility] f/u 8u97w93l-dtc3-3605-75uy-z8ci142663q2 06/01/2016 06/01/2016 2.16.840.1.139948.4.391.11.55551 [facility] f/u 47dj77a3-2pta-43yf-460d-dw36d14lv68d 06/01/2016 06/01/2016 2.16.840.1.262615.4.391.11.12755 [facility] f/u y6c4cz8e-0voq-0uv8-p6l6-2ox8jyt353t6 06/01/2016 06/01/2016 2.16.840.1.325058.4.391.11.18503 [facility] f/u 8dvy6464-965p-2x59-o28k-5b574mdg9vu8 06/01/2016 06/01/2016 2.16.840.1.675195.4.391.11.46938 [facility] f/u 1n986qkc-5lr3-364x-2qk7-qka6ge17741v 06/01/2016 06/01/2016 2.16.840.1.540553.4.391.11.36826 [facility] f/u 884o3k9c-0035-315b-dibu-33n88v7k535a 06/01/2016 06/01/2016 2.16.840.1.377993.4.391.11.87135 [facility] f/u 8p775860-904q-30jd-b3x3-1v3nj63pai87 06/01/2016 06/01/2016 2.16.840.1.829140.4.391.11.88883 [facility] f/u 1tv1rj18-752s-7q82-6i59-9xfyv0ri9e76 06/01/2016 06/01/2016 2.16.840.1.130675.4.391.11.45704 [facility] f/u 89l3l817-u6gj-11t6-qw71-232ir13508z6 06/01/2016 06/01/2016 2.16.840.1.302741.4.391..93046 [facility] f/u c98mkh18-6915-875p-1198-tuutm8x72422 06/01/2016 06/01/2016 2.16.840.1.509660.4.391.11.44704 [facility] f/u p58008tj-04o7-2um8-8m97-6n286237g598 06/01/2016 06/01/2016 2.16.840.1.994615.4.391..27567 [facility] f/u 83531x26-5s97-9358-k7b6-21e54j9j3506 06/01/2016 06/01/2016 2.16.840.1.607130.4.391..82059 [facility] f/u 6v556793-4n4o-6r79-x49d-51e6f305d9j4 06/01/2016 06/01/2016 2.16.840.1.375674.4.391.11.95772 [facility] f/u 5574s318-7o06-8w86-m302-31081f74u353 06/01/2016 06/01/2016 2.16.840.1.708852.4.391.11.78281 [facility] f/u 8c7115ae-m6s0-88i9-1350-6kw934m55v00 06/01/2016 06/01/2016 2.16.840.1.546329.4.391.11.75352 [facility] FOLLOW UP [id number]-451e-1a85-0jyj-imx350yij23u 06/19/2016 06/19/2016 2.16.840.1.693034.4.391.11.80953 [facility] FOLLOW UP ytl8b2w3-6uk6-53y3-w4jr-d9411007b14l 06/19/2016 06/19/2016 2.16.840.1.729560.4.391.11.10469 [facility] FOLLOW UP 4zl14939-2h7c-2ga2-wvo9-z8zh8708y56u 06/19/2016 06/19/2016 2.16.840.1.685082.4.391.11.70435 [facility] FOLLOW UP buhvyi3c-yu00-40j1-n9x3-3f0079jh6lav 06/19/2016 06/19/2016 2.16.840.1.022755.4.391..09469 [facility] FOLLOW UP [id number]-i735-6gj8-6y82-dto4zw581081 06/19/2016 06/19/2016 2.16.840.1.745538.4.391..24461 [facility] FOLLOW UP 9j489f1a-8fyr-779j-6140-87no078f998x 06/19/2016 06/19/2016 2.16.840.1.890328.4.391.11.37418 [facility] FOLLOW UP e129tyw0-p393-851z-37kb-1c199vzyme51 06/19/2016 06/19/2016 2.16.840.1.271823.4.391.11.37642 [facility] FOLLOW UP 109v2103-r9p0-098v-c36j-r4fsf5ly95fi 06/19/2016 06/19/2016 2.16.840.1.124750.4.391.11.21814 [facility] FOLLOW UP yw0y326h-9340-3wm9-b8q0-4e88185qt9q4 06/19/2016 06/19/2016 2.16.840.1.696076.4.391.11.90073 [facility] FOLLOW UP 645156m3-b967-208n-l56u-762vt04ha59e 06/19/2016 06/19/2016 2.16.840.1.459891.4.391.11.93102 [facility] FOLLOW UP d579z498-g7d4-5416-0xei-z723n6p23ft6 06/19/2016 06/19/2016 2.16.840.1.457251.4.391.11.14544 [facility] FOLLOW UP rkgo300v-7247-93c4-23o0-8f43bt9w40e2 06/19/2016 06/19/2016 2.16.840.1.564608.4.391.11.03000 [facility] FOLLOW UP 8920t7cl-s32l-2d51-oql1-15004791atsv 06/19/2016 06/19/2016 2.16.840.1.804028.4.391.11.16221 [facility] FOLLOW UP ym8v52m6-z80m-28l0-e690-lehp8s7g84up 06/19/2016 06/19/2016 2.16.840.1.577845.4.391.11.57468 [facility] FOLLOW UP 133z0574-s546-613m-j392-19356vn0k5i1 06/19/2016 06/19/2016 2.16.840.1.156007.4.391.11.86019 [facility] Unknown m9s94u67-vg5a-1q6z-t307-4709mhufu2x7 06/29/2016 06/29/2016 2.16.840.1.395118.4.391.11.83706 [facility] Unknown 4u4c1691-33z4-5h14-v117-7z4234g10012 06/29/2016 06/29/2016 2.16.840.1.321465.4.391.11.92533 [facility] Unknown [id number]-793e-3221-1985-8898q9yl4102 06/29/2016 06/29/2016 2.16.840.1.143141.4.391.11.57551 [facility] Unknown 722bs7x6-g05d-4x78-n129-633725g7lk62 06/29/2016 06/29/2016 2.16.840.1.469028.4.391.11.75043 [facility] Unknown w8724vfq-9854-603q-pll2-28v18v59533d 06/29/2016 06/29/2016 2.16.840.1.741216.4.391.11.41270 [facility] Unknown 3bu7kfk7-25v6-2755-o11q-2wl8h0653845 06/29/2016 06/29/2016 2.16.840.1.994348.4.391.11.05369 [facility] Unknown 01gbs5w0-74rw-57t1-a863-n841e322q288 06/29/2016 06/29/2016 2.16.840.1.250240.4.391.11.06311 [facility] Unknown [id number]-w245-6t0w-oe11-62bx0hod6445 06/29/2016 06/29/2016 2.16.840.1.606235.4.391.11.14069 [facility] Unknown 3i2x0imx-7f82-2844-7903-98ww8058ay94 06/29/2016 06/29/2016 2.16.840.1.664122.4.391.11.79777 [facility] Unknown a011f534-b543-7o1n-66nd-7n60e99ijc61 06/29/2016 06/29/2016 2.16.840.1.034545.4.391.11.69207 [facility] [id number]-08015psl96r0 06/29/2016 06/29/2016 2.16.840.1.181810.4.391.11.84636 [facility] Unknown 8f57n48h-v7c4-9136-57tq-fk64tql92415 06/29/2016 06/29/2016 2.16.840.1.853169.4.391.11.95938 [facility] Unknown 98320nr2-954n-1to4-xaa4-9i32jf99yvwh 06/29/2016 06/29/2016 2.16.840.1.673478.4.391.11.44928 [facility] Unknown ipcgyb52-zypa-2697-p751-06833768r9g4 06/29/2016 06/29/2016 2.16.840.1.171385.4.391.11.44029 [facility] 1 month f/u 10l6a770-bn1l-7423-t166-j02184181y50 07/19/2016 07/19/2016 2.16.840.1.132730.4.391.11.90786 [facility] 1 month f/u 39zc37ft-6623-7rcq-j377-rq45r812e5mt 07/19/2016 07/19/2016 2.16.840.1.344016.4.391.11.75739 [facility] 1 month f/u 7p89uq1o-ko05-01g1-5096-96j957xa9665 07/19/2016 07/19/2016 2.16.840.1.609471.4.391.11.64524 [facility] 1 month f/u 809720sg-2125-689j-7t78-1a523ay1i286 07/19/2016 07/19/2016 2.16.840.1.581785.4.391.11.81630 [facility] 1 month f/u ea8ej2s8-0syl-2f36-hfyz-x084u35063f1 07/19/2016 07/19/2016 2.16.840.1.429577.4.391.11.45086 [facility] 1 month f/u b04959v5-2tal-36p7-pxz6-t737o74v7d09 07/19/2016 07/19/2016 2.16.840.1.130694.4.391.11.34389 [facility] 1 month f/u 47061vw9-91fo-6561-1dc8-85509w163n4l 07/19/2016 07/19/2016 2.16.840.1.068114.4.391.11.99239 [facility] 1 month f/u 749e75x4-6187-93m1-719i-5mwx1s14p904 07/19/2016 07/19/2016 2.16.840.1.298959.4.391.11.80972 [facility] 1 month f/u 43579k00-y462-7l11-u77x-1752l21a66dt 07/19/2016 07/19/2016 2.16.840.1.947454.4.391.11.24672 [facility] 1 month f/u 3jp08z7w-5tvs-8npk-b6o8-5c5l462d9004 07/19/2016 07/19/2016 2.16.840.1.628119.4.391.11.64905 [facility] 1 month f/u 1602st25-44u7-7o5b-9112-sf0695dp3a7e 07/19/2016 07/19/2016 2.16.840.1.433747.4.391.11.41272 [facility] 1 month f/u y5qq7076-99c6-367t-46jj-2779m7e71471 07/19/2016 07/19/2016 2.16.840.1.652934.4.391.11.62430 [facility] 1 month f/u xe7747v8-3872-83gb-u0f0-22d046138392 07/19/2016 07/19/2016 2.16.840.1.218998.4.391.11.70555 [facility] 4 month f/u 0z0675d2-p6v2-516a-22n6-1tnvi2eg975k 10/02/2016 10/02/2016 2.16.840.1.639226.4.391.11.64588 [facility] 4 month f/u r95gc500-efu5-3787-311i-6vf9n52xqq19 10/02/2016 10/02/2016 2.16.840.1.837593.4.391.11.14782 [facility] 4 month f/u 1g020m67-4023-8h21-2t1q-ef01z7q1q3bl 10/02/2016 10/02/2016 2.16.840.1.564558.4.391.11.83649 [facility] 4 month f/u 8u8qby99-0422-7d78-i6s5-96kh72t29ql0 10/02/2016 10/02/2016 2.16.840.1.145896.4.391.11.54862 [facility] 4 month f/u b1u17744-934o-4p63-47n0-723t14v48302 10/02/2016 10/02/2016 2.16.840.1.139884.4.391.11.33619 [facility] 4 month f/u sf9qg915-1fv1-4x05-hl30-4858qzdgs111 10/02/2016 10/02/2016 2.16.840.1.228381.4.391.11.48771 [facility] 4 month f/u 4s1948n4-36d9-8655-0a20-tpz31w825y02 10/02/2016 10/02/2016 2.16.840.1.349863.4.391.11.22411 [facility] 4 month f/u 571e0t52-b928-5c7l-z1z8-u9484v135s73 10/02/2016 10/02/2016 2.16.840.1.563669.4.391.11.59124 [facility] 4 month f/u dvu80457-d092-4773-83d8-hh52pt3u8fe3 10/02/2016 10/02/2016 2.16.840.1.468745.4.391.11.75134 [facility] 4 month f/u q95f8543-x486-95r1-0391-4174e11y58zo 10/02/2016 10/02/2016 2.16.840.1.012298.4.391.11.76018 [facility] 4 month f/u 548arnr0-7sy0-0989-sg95-4842737oudc8 10/02/2016 10/02/2016 2.16.840.1.315000.4.391.11.95193 [facility] 4 month f/u 55v69959-8981-32gh-jo27-s673z89lqte6 10/02/2016 10/02/2016 2.16.840.1.681127.4.391.11.85948 [facility] Unknown mt704772-11a4-22w2-f1ud-558kpt20ifku 10/04/2016 10/04/2016 2.16.840.1.439924.4.391.11.91191 [facility] Unknown 880b1y26-420x-82yo-fh2o-yx044ud87675 10/04/2016 10/04/2016 2.16.840.1.201515.4.391.11.27884 [facility] Unknown 96426ke6-r26h-1o33-f507-20f8l7j70cq3 10/04/2016 10/04/2016 2.16.840.1.476606.4.391.11.43122 [facility] Unknown ot53q7p9-1e17-09bf-o48a-11fv32337388 10/04/2016 10/04/2016 2.16.840.1.697321.4.391.11.47659 [facility] Unknown 035sd01o-hq01-907g-pew9-37kh1n90j169 10/04/2016 10/04/2016 2.16.840.1.924814.4.391.11.77142 [facility] Unknown s49g2p3b-610k-3e5l-o6e3-l99kej2n19us 10/04/2016 10/04/2016 2.16.840.1.982501.4.391.11.11236 [facility] Unknown w14375hb-p798-58g7-e8p1-948ir550j9yp 10/04/2016 10/04/2016 2.16.840.1.320172.4.391.11.14764 [facility] Unknown yuyx5680-74z9-30q8-l999-g66jpp99391a 10/04/2016 10/04/2016 2.16.840.1.091678.4.391.11.22718 [facility] Unknown 3s531472-y409-3ea5-966p-82rt5m7c18y8 10/04/2016 10/04/2016 2.16.840.1.094482.4.391.11.95734 [facility] Unknown 64z909k0-ms3p-3oec-fk1k-33f4gccb5x52 10/04/2016 10/04/2016 2.16.840.1.873791.4.391.11.82951 [facility] Unknown bzj3392r-9lmv-8t46-z5sf-736o4679i94a 10/04/2016 10/04/2016 2.16.840.1.610121.4.391.11.71462 [facility] Unknown [id number]-hxy6-i2qp84820862 10/04/2016 10/04/2016 2.16.840.1.865177.4.391.11. [facility] Unknown f27y53tj-73k9-717r-p39n-42l23505u141 10/04/2016 10/04/2016 2.16.840.1.332838.4.391.11.08635 [facility] Unknown a0z25i8y-2988-0n22-6969-c70933505thn 10/04/2016 10/04/2016 2.16.840.1.503162.4.391.11.68543 [facility] Unknown [id number]-l196-h989584m1li3 10/04/2016 10/04/2016 2.16.840.1.760192.4.391.11.74493 [facility] Unknown [id number]-ut00-4z18-bzo1-9saiya0i2072 10/04/2016 10/04/2016 2.16.840.1.987125.4.391.11.06903 [facility] Unknown [id number]-0428-0g02-yfjo5838vr28 10/04/2016 10/04/2016 2.16.840.1.859045.4.391.11.41535 [facility] Unknown 0ap041g1-8i74-7z84-6270-t227yi6c301b 10/04/2016 10/04/2016 2.16.840.1.501964.4.391.11.05727 [facility] Unknown dw46m331-9086-6n1v-26tm-x874vj04x3u6 10/04/2016 10/04/2016 2.16.840.1.720118.4.391.11.75003 [facility] Unknown 10o609w4-1352-79w6-6m35-563l3v3456w8 10/04/2016 10/04/2016 2.16.840.1.823963.4.391.11.60055 [facility] Unknown 73a7f14o-88st-7m16-q369-0097241vk09x 10/04/2016 10/04/2016 2.16.840.1.165410.4.391.11.91494 [facility] Unknown 3z6r1004-9e6f-4204-l8z1-1z011tj784ka 10/04/2016 10/04/2016 2.16.840.1.304990.4.391.11.95552 [facility] ECHO 53o3y780-4j7i-1587-jd88-6dm349a894g4 10/24/2016 10/24/2016 2.16.840.1.791726.4.391.11.74871 [facility] ECHO k0inr782-i04x-7766-4v35-i0zuoj70d816 10/24/2016 10/24/2016 2.16.840.1.910577.4.391.11.49403 [facility] ECHO 3hqw9p98-39v9-13a8-c761-iu9n02095v9q 10/24/2016 10/24/2016 2.16.840.1.097041.4.391.11.40575 [facility] ECHO 23428w3l-7090-64bz-3qw2-befuwciz3wbe 10/24/2016 10/24/2016 2.16.840.1.183038.4.391.11.97810 [facility] ECHO 22u98pz3-326z-7q33-bdi6-934vq0c4214q 10/24/2016 10/24/2016 2.16.840.1.088917.4.391.11.40432 [facility] ECHO 5m0yd6gr-9f9o-0f20-j03n-i2ik47072u4m 10/24/2016 10/24/2016 2.16.840.1.791606.4.391.11.52274 [facility] ECHO 8o00gl95-2l3f-4361-4102-35xzw8n25hm3 10/24/2016 10/24/2016 2.16.840.1.104526.4.391.11.85708 [facility] ECHO 03r93048-ju0f-2ij4-675g-ij96wmf7f0sb 10/24/2016 10/24/2016 2.16.840.1.556494.4.391.11.13509 [facility] ECHO o58qgh73-3lyl-65ju-l272-64zm0323o539 10/24/2016 10/24/2016 2.16.840.1.668924.4.391.11.20979 [facility] CAROTID DOPPLER z0707615-114b-0n3s-galc-53rm0io9x6z1 10/31/2016 10/31/2016 2.16.840.1.631943.4.391.11.11617 [facility] CAROTID DOPPLER m35lr2cb-1ggc-1m76-43ot-9q6ro7ca6o64 10/31/2016 10/31/2016 2.16.840.1.706123.4.391.11.93605 [facility] CAROTID DOPPLER jf4mg0uy-rovl-32s7-1rh0-97z8is86tzh9 10/31/2016 10/31/2016 2.16.840.1.995847.4.391.11.16292 [facility] CAROTID DOPPLER 42qn31r8-86f8-137l-56j1-39w7yp9m787d 10/31/2016 10/31/2016 2.16.840.1.508740.4.391.11.39761 [facility] CAROTID DOPPLER bbx43238-5r77-63kg-ke71-s57t15g5sw99 10/31/2016 10/31/2016 2.16.840.1.405088.4.391.11.59957 [facility] CAROTID DOPPLER v3x4808p-4q39-149q-9a3f-10pq53n23ql8 10/31/2016 10/31/2016 2.16.840.1.086761.4.391.11.02146 [facility] CAROTID DOPPLER kp56b1k8-666x-8071-x8sx-waoj1b9x363a 10/31/2016 10/31/2016 2.16.840.1.381180.4.391.11.63199 [facility] Unknown 3c312273-794q-79zl-52cn-9w2677b59k6x 10/31/2016 10/31/2016 2.16.840.1.523507.4.391.11.74142 [facility] Unknown 5cc64la0-852h-56n0-n64j-tc8ekjpll670 10/31/2016 10/31/2016 2.16.840.1.032304.4.391.11.46959 [facility] Unknown 2e68pys5-p2c5-1d79-ys30-g5k98c33e83i 10/31/2016 10/31/2016 2.16.840.1.776155.4.391.11.18719 [facility] Unknown 614ce9d5-9930-4494-2b3c-z15n7416k112 10/31/2016 10/31/2016 2.16.840.1.621664.4.391.11.25147 [facility] Unknown 76352i4l-420k-0nl6-1207-3ke341191996 10/31/2016 10/31/2016 2.16.840.1.485828.4.391.11.33013 [facility] Unknown [id number]-97m6-97al-3698-ss076it834s3 10/31/2016 10/31/2016 2.16.840.1.012723.4.391.11.72735 [facility] Unknown i8188nq8-532i-5l9h-0oj0-mik0a5j39588 10/31/2016 10/31/2016 2.16.840.1.282403.4.391.11.33134 [facility] Unknown 8d43105z-o240-9whx-tg20-7b12s0j58vaq 10/31/2016 10/31/2016 2.16.840.1.632404.4.391.11.83006 [facility] followup on bp meds t58yp646-o61p-4v78-h865-fq331ytv2x26 11/07/2016 11/07/2016 2.16.840.1.111769.4.391.11.04789 [facility] followup on bp meds 1514qh13-ut01-8yhx-ex1x-09a691t69348 11/07/2016 11/07/2016 2.16.840.1.438264.4.391.11.05622 [facility] followup on bp meds k0925t18-86f5-51s9-0189-i37xo53t14b8 11/07/2016 11/07/2016 2.16.840.1.191282.4.391.11.43658 [facility] followup on bp meds 28l04n2s-8yui-09m4-6xj6-tb8i2594k200 11/07/2016 11/07/2016 2.16.840.1.444586.4.391.11.61444 [facility] followup on bp meds 57cq11m9-85wx-137m-02d9-h82c0b4oxyu0 11/07/2016 11/07/2016 2.16.840.1.223650.4.391.11.39133 [facility] Unknown [id number]-u1h5-46z7-39sr-7l4i21jk595u 11/13/2016 11/13/2016 2.16.840.1.218317.4.391.11.51703 [facility] Unknown ggw33t96-a052-16fp-49u2-a1516rupd6tg 11/13/2016 11/13/2016 2.16.840.1.917021.4.391.11.74557 [facility] Unknown 7zg3my7e-i14d-3035-7n7o-4fc05207544k 11/13/2016 11/13/2016 2.16.840.1.034351.4.391.11.14988 [facility] Unknown [id number]-n9o7-0wt4-z516-p018f535g409 11/13/2016 11/13/2016 2.16.840.1.670759.4.391.11.18981 [facility] fh3l4h93-893t-53wq-le18-7hs411ub832w 11/13/2016 11/13/2016 2.16.840.1.910198.4.391.11.91057 [facility] Unknown 986173p7-5870-8u49-235j-563t2no4f1h7 11/13/2016 11/13/2016 2.16.840.1.332160.4.391.11.71491 [facility] Unknown 7i89y647-san2-5383-0807-6456mn482b72 11/15/2016 11/15/2016 2.16.840.1.322677.4.391.11.85325 [facility] 139468g0-82xy-5l82-1lt2-169zrc097b58 11/17/2016 11/17/2016 2.16.840.1.318526.4.391.11.16922 [facility] Unknown 9j74a0yt-2a85-67p7-gn35-4u27806e72p8 11/17/2016 11/17/2016 2.16.840.1.372343.4.391.11.86550 [facility] Unknown 09722y9s-22kp-49fc-2o5j-j1017t644g96 11/17/2016 11/17/2016 2.16.840.1.194502.4.391.11.48589 [facility] Unknown yyns6926-w9iv-8giy-lt61-u79550741h65 11/17/2016 11/17/2016 2.16.840.1.148191.4.391.11.88940 [facility] Unknown idk46868-l3hd-1m0s-0581-72q74in14z87 11/20/2016 11/20/2016 2.16.840.1.550010.4.391.11.62051 [facility] Unknown [id number]-m0ph-49w1-6877-45qk08g53033 11/20/2016 11/20/2016 2.16.840.1.724566.4.391.11.99869 [facility] Unknown 2e28s34f-d2l6-6905-5e3v-978j17eq18br 11/20/2016 11/20/2016 2.16.840.1.828031.4.391.11.40311 [facility] Unknown [id number]-9wkp-08s4-796u5658864f 11/20/2016 11/20/2016 2.16.840.1.828170.4.391.11.59927 [facility] Unknown hk5f1t29-yn70-93fe-q621-0pvd7h12fe49 11/20/2016 11/20/2016 2.16.840.1.749181.4.391.11.94329 [facility] Unknown 45314lq5-208t-057c-35k8-r6d2n0d09183 11/20/2016 11/20/2016 2.16.840.1.627877.4.391.11.19360 [facility] Outpatient [id number] Alexey Anthony 11/29/2016 11/30/2016 [facility] Outpatient [id number] Alexey Anthony 08/06/2017 08/07/2017 [facility] Ambulatory Pre-Reg [id number] Alexey Anthony 11/29/2017 11/29/2017 [facility] Outpatient [id number] Kathryn Greene 01/31/2018 02/01/2018 [facility] Outpatient [id number] Alexey Anthony 03/06/2018 03/07/2018 [facility] Departed Emergency Room [id number] JAQUELIN POOL MD 03/11/2018 03/11/2018 [facility] Observation [id number] Alexey Anthony 05/16/2018 05/17/2018 [facility] Emergency [id number] Shazia Alcanter 07/22/2018 07/22/2018 [facility] Inpatient [id number] Elpidio Edouard 07/22/2018 07/25/2018 [facility] Phone Message [id number] 07/29/2018 07/31/2018 [facility] Phone Message [id number] 08/01/2018 08/03/2018 [facility] Inpatient [id number] Alexey Anthony 08/16/2018 08/21/2018 [facility] Outpatient [id number] JORDI MCCRACKEN 08/22/2018 [facility] [place] [place] [id number] Jordi Mccracken 08/22/2018 08/22/2018 [facility] [place] Message [id number] 09/11/2018 09/13/[address] [facility] Observation [id number] Alexey Anthony 09/17/2018 09/18/2018 [facility] Outpatient [id number] Alexey Anthony 04/02/2019 04/03/2019 [facility] Inpatient [id number] Alexey Anthony 04/14/2019 04/18/2019 [facility] Outpatient [id number] Alexey Anthony 05/09/2019 05/10/2019 [facility] Procedures Procedure Code Date Perfomer Comments Source Computed tomography of brain without radiopaque contrast [id number] 03/11/2018 [facility] X-ray of chest, two views [id number] 03/11/2018 [facility] Cholecystectomy [id number] [facility] Colonoscopy [id number] [facility] Endoscopy [id number] [facility] Hysterectomy [id number] [facility] MRI [id number] [facility] Spiral CT scan [id number] [facility] Assessment and Plan Assessment and Plan Date Source Extracted from:Title: History and Physical Author: Esther Sena MD Date: 09/17/18 87-year-old female with history ofpolymyalgia rheumatica on steroids, CAD, hypertension, HLP, recurrent falls, GERD, recurrent UTIs,hypothyroidismwho presented to the EDfollowing a fall. Fall - pt with history of recurrent falls - PT/OT evaluation - gentle hydration New onset atrial fibrillation -Patient now rate controlled off medication -Hold therapeutic anticoagulation due to frequent history of falls -Cardiology consult in a.m. -Telemetry Urinary tract infection -Ceftriaxone, follow culture Polymyalgia rheumatica -Continue prednisone 5 mg Hypertension -Resume home medications GERD -Continue PPI heparin 1 midnight pending further evaluation 09/18/2018 Charanjit Extracted from:Title: Clinical Document Author: Herman Thayer MD Date: 08/21/18 Pulmonary/Critical Care Medicine progess note Herman Thayer MD SUBJECTIVE: Seen and examined. Patient is on room air. She is mentating well. Patient's son is at bedside. Events and records reviewed. OBJECTIVE: Vitals Tmp(F) Tmp(C) Ttype BP MAP Pulse RR SpO2 FIO2 ETCO2 08/21 08:15 98 36.67 oral 171/73 --- 82 16 93 --- --- 08/21 03:36 97.3 36.28 oral 172/68 --- 72 16 93 --- --- 08/21 00:34 97.5 36.39 oral 168/67 --- 70 16 93 --- --- 08/20 21:12 98.3 36.83 oral 181/68 --- 77 16 94 --- --- 08/20 15:09 98.3 36.83 oral 148/68 --- 73 16 95 --- --- 24 Hr Tmax: 98.3F (36.83c) at 08/20 21:12 Vital Signs are the last 5 in the past 48 hours. 24 Hr Tmin: 97.3F (36.28c) at 08/21 03:36 Weights are the last 5 in 60 days, plus initial. Date Wt(kg) Wt(lb) Ht(cm) Ht(in) Method BMI BSA 08/16 (initial) 54.55 120.00 Estimated 23.5 1.52 08/16 152.40 60.00 Stated (no point of care glucose results charted in last 24 hours) Most Recent Scores: 08/20/18 Rudolph Coma Score 15 08/20/18 Sherman Score 17 08/20/18 Craig Sánchez Fall Score 12 08/20/18 Pain Intensity NRS (0-10) 0 Lines, Tubes, and Drains: 08/17/2018 11:15 Peripheral Lines: Upper arm Right 20 gauge Over the needle catheter (no surgical procedures documented) Labs (Last four charted values) WBC 8.2 (AUG 20) 7.5 (AUG 18) 5.8 (AUG 16) Hgb L 8.9 (AUG 20) L 9.1 (AUG 18) L 10.1 (AUG 16) Hct L 26.4 (AUG 20) L 27.3 (AUG 18) L 30.3 (AUG 16) Plt 235 (AUG 20) 159 (AUG 18) L 131 (AUG 16) Na 140 (AUG 21) 137 (AUG 20) 138 (AUG 18) 135 (AUG 17) K 4.2 (AUG 21) 4.3 (AUG 20) 4.4 (AUG 18) 4.2 (AUG 17) CO2 L 21 (AUG 21) L 21 (AUG 20) L 20 (AUG 18) L 19 (AUG 17) Cl 108 (AUG 21) 106 (AUG 20) 107 (AUG 18) 105 (AUG 17) Cr 0.84 (AUG 21) 0.74 (AUG 20) 0.90 (AUG 18) 1.24 (AUG 17) BUN 16 (AUG 21) 14 (AUG 20) 15 (AUG 18) H 24 (AUG 17) Glucose Random 86 (AUG 21) 87 (AUG 20) 94 (AUG 18) 82 (AUG 17) Ca L 7.8 (AUG 21) L 8.1 (AUG 20) L 8.2 (AUG 18) L 8.2 (AUG 17) PT 13.3 (AUG 17) 13.6 (AUG 17) 13.3 (AUG 16) INR 1.01 (AUG 17) 1.04 (AUG 17) 1.01 (AUG 16) PTT H 39.2 (AUG 17) H 38.9 (AUG 17) H 81.2 (AUG 16) Troponin <0.02 (AUG 16) Total CK 94 (AUG 16) RADIOLOGY: ASSESSMENT and EXAM: HEENT:normocephalic,atraumatic Skin:no rash Chest: symmetrical expansion, no wheezing,no rales, no crackles Heart: Regular rhythm, no murmurs Abdomen: Soft, nontender, bowel sounds present Ext: trace edema OVEN DUMPER: alert and oriented, no focal neurological defecits DIAGNOSES and PROBLEMS: Sepsis Pneumonia and/or bronchitis Acute kidney injury Macular degeneration Polymyalgia rheumatica deconditioning and debility PLAN and TREATMENT: Patient doing better. Okay to discharge on p.o. antibiotics. Spoke with the patient's son at length. All questions answered. Scheduled Meds (17): 08/17/18 aspirin (aspirin 81 mg tablet, enteric coated) 81 mg PO Daily 08/16/18 cefepime + Sodium Chloride 0.9% IV 100 mL 1 gm IVPB [id number] 25 ml/hr 08/17/18 docusate (docusate sodium 100 mg oral capsule) 100 mg PO BID 08/17/18 gabapentin (gabapentin 300 mg oral capsule) 300 mg PO BID 08/17/18 hydrALAZINE (hydrALAZINE 10 mg oral tablet) 10 mg PO Q6H 08/17/18 levothyroxine 25 microgram PO [id number] 08/17/18 lidocaine topical (Lidoderm 5% topical film (patch)) 1 patch TOP Bedtime 08/17/18 losartan 50 mg PO Daily 08/17/18 melatonin 3 mg PO Bedtime 08/17/18 mirabegron (Myrbetriq 25 mg oral tablet, extended release) 25 mg PO Daily 08/17/18 pantoprazole (Protonix) 40 mg PO Before Dinner 08/17/18 polyethylene glycol 3350 17 gm PO BID 08/17/18 predniSONE 5 mg PO Daily 08/17/18 remove patch TOP Daily 08/17/18 senna (senna 8.6 mg oral tablet) 17.2 mg PO Daily 08/17/18 sertraline 50 mg PO Daily 08/19/18 vancomycin + Sodium Chloride 0.9% IV 250 mL 1,000 mg IVPB [id number] 250 ml/hr Unscheduled Meds: None Extracted from:Title: History and Physical Author: Esther Sena MD Date: 08/17/18 87 yo F with past medical history of polymyalgia rheumatica, CAD, hypertension, HLP, recurrent falls, GERD, recurrent UTIs,hypothyroidismwho presented to the EDwith fever and dysuria. Suspected sepsis -Elevated pro-calcitonin, feverconcerning for sepsis -Patient will not give urine sample despitemultiple conversations and were explained to her the importance of receiving a urine sample for culture -will attempt to get urine sample via straight cath -Continue empiric vancomycin and cefepime for now Acute kidney injury -ATN from sepsis versus prerenal -Continue IV fluid Thrombocytopenia -Possibly related to sepsis versus HIT as patient was receiving heparin in rehab center - will check DIC panel given SWAPNIL - will trend Elevated liver enzymes -Possibly acute liver injury in setting of sepsis -Continue to monitor liver enzymes - RUQ normal Polymyalgia rheumatica -Continue prednisone HTN - resume home meds HLD - continue home meds GERD - continue PPI Hypothyroidism - continue levothyroxine SCDs 2-3 midnights 08/21/2018 Charanjit Extracted from:Title: Hospitalist progress Note Author: Annie Hood MD Date: 07/24/18 79 years old female with past medical history of polymyalgia rheumatica, CAD, HTN, HLP, recurrent falls. Patient presented after a ground-level fall. She reported her legs feeling gelling and giving away. She also reported some prodromal dizziness. No loss of consciousness. Found with lumbarvertebraltransverse processes fracture. Nonoperative management per neurosurgery. Pending sniff. 1.Broken ribs(S22.39XA), Broken ribs(S22.39XA) -Acute nondisplacedleft fifth and sixth rib fracture -Pain control -Incentive spirometry 2.Closed fracture of transverse process of cervical vertebra(S12.9XXA), Closed fracture of transverse process of cervical vertebra(S12.9XXA) -L2-L4 acute left transverse processes fracture - Per NSGY: Nonoperative management. No bracing needed. But can use corset for comfort. -Pain management -Follow-up in neurosurgery spine clinic in 2 weekswithAP and lateral x-rays with Dr. Olson./ [phone] for appointment 3.Dizziness(R42) -Possible presyncope. DDx: ddx orthostatic hypotension due to her numerous BP meds vs oversedation from her sedatives. Did not see ortho VS on recordand patient has open fluid. - TTE EF>70%, no wall motion abnormality -Bilateral carotid Doppler with no significant stenosis - EKG with JR on 07/22. NSR currently on tele. No tele events reported. -Trops neg 4.Stage 3 chronic kidney disease(N18.3) - Creatinine at baseline 5.Hypertension(I10) -Continue hydralazine and losartan 6.Hypothyroidism(E03.9) -Levothyroxine 7.Coronary artery disease(I25.10) -AsA 8.Recurrent UTI(N39.0) - based on her provided hx, sounds more like dysuria 2/2 vaginal atrophy - cautioned her onmisuse of abx - outpatient backup administrative coordinator follow up for exam and consideration of topical estrogens 9.Polymyalgia rheumatica(M35.3) -Continue prednisone, lyrica * Setting of presyncope, continue telemetry today Heparin PT/OT >> SNF, pending. Addendum by Annie Hood MD on 07/24/2018 17:10 CDT Pulmonary nodules: indeterminate, Areas of bronchiectasis per CT. Respi stable clinically and afebrile with no consistent cough. Outpt f/u with PCP Extracted from:Title: History and Physical Author: Alexis Aragon MD Date: 07/23/18 1.Broken ribs(S22.39XA) left 5-6th rib fx, pain control, supportive care 2.Closed fracture of transverse process of cervical vertebra(S12.9XXA) L2-4 TP fx, T5 compression deformity NSGY consulted,lumbar corsetfor comfort 3.Dizziness(R42) ddx orthostatic hypotension due to her numerous BP meds vs oversedation from her sedatives will pare down her medicine list aggressively juntional rhythm vs nsr on EKG NSR on telemetry ECHO with normal EF carotid dopplers unremarkable 4.Stage 3 chronic kidney disease(N18.3) stable 5.Hypertension(I10) dc imdur, hctz, metoprolol (metoprolol has minimal BP effect anyways and blunts her normal tachycardic response to activity and changes in position) SBP goal 140-160 given her age continue losartan 6.Hypothyroidism(E03.9) synthroid 7.Coronary artery disease(I25.10) asa (given her age, asa/statin are likely to be of minimal benefit at this time) 8.Recurrent UTI(N39.0) based on her provided hx, sounds more like dysuria 2/2 vaginal atrophy cautioned her onmisuse of abx advised outpatient backup administrative coordinator follow up for exam and consideration of topical estrogens 9.Polymyalgia rheumatica(M35.3) prednisone 5 lyrica zoloft piedad 07/25/2018 [facility] Plan of Care Plan of Care Date Source Discharge Date 03/11/18 6:02pm Disposition HOME, SELF-CARE Condition at Discharge Stable Instructions/Education Provided Fall Prevention Wound Care (General) Forms Provided Work/School Excuse Prescriptions See Medication Section Referrals BROOKE JUNG MD Order Date: Call for an appointment Address: [facility] [address] [facility] [address] [place] [address] Additional Instructions/Education FOLLOW UP WITH ORTHO IN 2 DAYS. WEAR SLING UNTIL BETTER. 03/11/2018 [facility] Social History Social History Date Source Social History TypeResponse Substance Abuse Use: None. Sexual Sexually active: No. Employment/School Status: Unemployed. Alcohol Never Smoking Status Never smoker; Ready to change: No; Concerns about tobacco use in household: No; Exposure to Tobacco Smoke None; Cigarette Smoking Last 365 Days No; Reg Smoking Cessation Counseling No entered on: 09/17/18 07/23/2018 [facility] Social History TypeResponse Substance Abuse Use: None. Sexual Sexually active: No. Employment/School Status: Unemployed. Alcohol Never Smoking Status Never smoker; Ready to change: No; Concerns about tobacco use in household: No; Exposure to Tobacco Smoke None; Cigarette Smoking Last 365 Days No; Reg Smoking Cessation Counseling No entered on: 09/17/18 07/23/2018 [facility] Social History TypeResponse Alcohol Never Employment/School Status: Unemployed. Sexual Sexually active: No. Substance Abuse Use: None. Smoking Status Never smoker; Ready to change: No; Concerns about tobacco use in household: No; Exposure to Tobacco Smoke None; Cigarette Smoking Last 365 Days No; Reg Smoking Cessation Counseling No entered on: 04/14/19 07/23/2018 [facility] Social History Problem Response Recorded Date/Time Onset Date Status Hx Substance Use Disorder No 01/05/2016 10:31am Not Applicable Not Applicable Hx Alcohol Use No 01/05/2016 10:31am Not Applicable Not Applicable Smoking Status Start Date Stop Date Never Smoker 03/11/2018 [facility] Social History ElementQualifiersDate Reported Do you take Aspirin, or a blood thinner . Yes I do take aspirin/ or a blood thinner Nov 07, 2016 Tobacco Use: . Are you a: never smoker Nov 07, 2016 Use of recreational / street drugs? . Answer: No Nov 07, 2016 Marital Status: . Nov 07, 2016 Caffeine intake? . Status: Yes, What type: Coffee, Tea Nov 07, 2016 Do you exercise? . Answer: No Nov 07, 2016 Do you drink alcohol? . Status: No Nov 07, 2016 Travel outside [place]: . 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 [employer] Nov 07, 2016 11/07/2016 [id number] Social History TypeResponse Smoking Status Never smoker; Concerns about tobacco use in household: No; Exposure to Tobacco Smoke None; Cigarette Smoking Last 365 Days No; Reg Smoking Cessation Counseling No entered on: 05/26/16 05/26/2016 [facility] Family History Value Date Source QualifierDescriptionCommentDate Reported Maternal Grandmother Comment not available Aug 09, 2015 Paternal Grandmother Comment not available Aug 09, 2015 Siblings alive Comment not available Aug 09, 2015 Maternal Grandfather Comment not available Aug 09, 2015 Children alive Comment not available Aug 09, 2015 Father Comment not available Aug 09, 2015 Paternal Grandfather Comment not available Aug 09, 2015 Mother Comment not available Aug 09, 2015 Other: Comment not available Aug 09, 2015 08/14/2015 [id number] QualifierDescriptionCommentDate Reported Maternal Grandmother Comment not available April 05, 2015 Paternal Grandmother Comment not available April 05, 2015 Siblings alive Comment not available April 05, 2015 Maternal Grandfather Comment not available April 05, 2015 Children alive Comment not available April 05, 2015 Father Comment not available April 05, 2015 Paternal Grandfather Comment not available April 05, 2015 Mother Comment not available April 05, 2015 Other: Comment not available April 05, 2015 04/09/2015 [id number] Advance Directives Order Name Results Value Date Source Advance Directives Advance Directives Directive Response Recorded Date/Time Does the patient have an advance directive? Yes 01/05/16 10:08am If yes, is advance directive on file with [facility]? No 07/27/12 10:03am If not on file with [facility] will patient provide a copy? No 07/27/12 10:03am Do you have a Directive to Physician? No 03/11/18 2:11pm Do you have a Medical Power of Emergency Vehicle Technician? No 03/11/18 2:11pm Do you have an out of hospital Do Not Resuscitate Order? No 03/11/18 2:11pm Do you have any special needs we should be aware of? No 03/11/18 2:11pm Do you have a support person here with you today? Yes 03/11/18 2:12pm Did patient receive Notice of Privacy Practices? Yes 03/11/18 2:12pm Did patient receive patient rights and responsibilities? Yes 03/11/18 2:12pm 03/11/2018 [facility] Functional Status No Data Provided for This Section
--- OUTSIDE RECORDS SUMMARY | 2019-05-23 06:43 | XMS REPORT | Summary of Care ---
Author Author [facility] Organization [facility] Address Unknown Phone Unavailable Care Team Providers Care Market Director Name Role Phone Alexey Cruz PCP Encounter HQ Karo_jakob(ANGELITO) [id number] Date(s): 05/09/19 - 05/09/19 [facility] [address] [place] [address]- Discharge Disposition: Home or Self Care Attending Physician: Alexey Cruz MD Admitting Physician: Alexey Cruz MD Vital Signs No data available for this section Problem List Condition Effective Dates Status Health Status Informant Escherichia Active coli(Confirmed)1 Heart Resolved abnormality(Confirme d) Hypertension(Confirm Active ed) Hypertension(Confirm Resolved ed) Nausea(Confirmed) 03/30/12 Active 1Problem added by Discern Expert. Allergies, Adverse Reactions, Alerts No Known Allergies Medications No data available for this section Results No data available for this section Immunizations Given and Recorded Vaccine Date Status Refusal Reason pneumococcal 23-valent vaccine 08/20/18 Given pneumococcal 23-valent vaccine 09/07/09 Given pneumococcal 13-valent vaccine 05/27/16 Given Procedures Procedure Date Related Diagnosis Body Site Status Cholecystectomy Completed Colonoscopy Completed Endoscopy Completed Hysterectomy Completed MRI Completed Spiral CT scan Completed Social History Social History Type Response Alcohol Never Employment/School Status: Unemployed. Sexual Sexually active: No. Substance Abuse Use: None. Smoking Status Never smoker; Ready to change: No; Concerns about tobacco use in household: No; Exposure to Tobacco Smoke None; Cigarette Smoking Last 365 Days No; Reg Smoking Cessation Counseling No entered on: 04/14/19 Assessment and Plan No data available for this section
--- OUTSIDE RECORDS SUMMARY | 2019-05-23 06:43 | XMS REPORT | Summary of Care ---
Author Author [facility] Organization [facility] Address Unknown Phone Unavailable Care Team Providers Care Consulting Solution Manager Name Role Phone Alexey Cruz PCP Encounter HQ Zia(ANGELITO) [phone] Date(s): 09/17/18 - 09/18/18 [facility] [address] [place] [address]- [phone] Encounter Diagnosis Unspecified injury of head, initial encounter (Final) - 09/25/18 Contusion of scalp, initial encounter (Final) - Fall on same level from slipping, tripping and stumbling with subsequent strikin g against unspecified object, initial encounter (Final) - Unspecified atrial fibrillation (Final) - Urinary tract infection, site not specified (Final) - Polymyalgia rheumatica (Final) - Essential (primary) hypertension (Final) - Gastro-esophageal reflux disease without esophagitis (Final) - Atherosclerotic heart disease of [place] coronary artery without angina pectoris (Final) - retirement (current) use of aspirin (Final) - Other jail (current) drug therapy (Final) - retirement (current) use of systemic steroids (Final) - Repeated falls (Final) - Hypothyroidism, unspecified (Final) - Hyperlipidemia, unspecified (Final) - Allergy status to sulfonamides status (Final) - Discharge Disposition: Halfway Facility Attending Physician: Alexey Cruz MD Admitting Physician: Alexey Cruz MD Vital Signs 1 2 3 Most recent to oldest [Reference Range]: 165.1 cm (09/17/18 8:19 PM) 165.1 cm (09/17/18 3:37 PM) Height 98.9 DegF (09/18/18 11:47 AM) 98.3 DegF (09/18/18 7:41 AM) 97.5 DegF (09/18/18 4:10 AM) Temperature Oral [96.4-99.1 DegF] 131/59 mmHg (09/18/18 1:37 PM) 134/74 mmHg (09/18/18 11:47 AM) 167/69 mmHg *HI* (09/18/18 7:41 AM) Blood Pressure [90-140/60-90 mmHg] 19 BRMIN (09/18/18 11:47 AM) 18 BRMIN (09/18/18 7:41 AM) 15 BRMIN (09/18/18 4:10 AM) Respiratory Rate [14-20 BRMIN] 115 bpm *HI* (09/18/18 1:37 PM) 82 bpm (09/18/18 11:47 AM) 80 bpm (09/18/18 7:41 AM) Peripheral Pulse Rate [60-100 bpm] 54.545 kg (09/17/18 8:19 PM) 54.545 kg (09/17/18 3:37 PM) Weight 20.01 m2 (09/17/18 8:19 PM) 20.01 m2 (09/17/18 3:37 PM) Body Mass Index Problem List Condition Effective Dates Status Health Status Informant Escherichia Active coli(Confirmed)1 Heart Resolved abnormality(Confirme d) Hypertension(Confirm Active ed) Hypertension(Confirm Resolved ed) Nausea(Confirmed) 03/30/12 Active 1Problem added by Discern Expert. Allergies, Adverse Reactions, Alerts Substance Reaction Severity Status sulfa drugs Resolved NKDA Active Medications please bring pt's own med myrbetriq to pharmacy please bring pt's own med myrbetriq to pharmacy, reminder, Drug form: Silvana SOSA [place]: PERICO SOSA, 09/18/18 0:00:00 PRESCHOOL AIDE, Duration: 30 day, Stop date: 10/17/18 1 6:00:00 PRESCHOOL AIDE Start Date: 09/18/18 Stop Date: 09/18/18 Status: Discontinued acetaminophen 1,000 mg, 2 tab, Route: PO, Drug form: TAB, Bedtime, Dosing Weight 54.545, kg, S tart date: 09/18/18 21:00:00 PRESCHOOL AIDE, Duration: 30 day, Stop date: 10/17/18 21:00:00 PRESCHOOL AIDE Notes: Max acetaminophen 4000 mg/day (4 gm/day). (Same as: Tylenol Extra Streng th) Start Date: 09/18/18 Stop Date: 09/18/18 Status: Canceled acetaminophen 650 mg, 2 tab, Route: PO, Drug form: TAB, Q4H, Dosing Weight 54.545, kg, PRN For Temp > 100.4 F, Start date: 09/17/18 20:39:00 PRESCHOOL AIDE, Duration: 30 day, Stop date: 10/17/18 20:38:00 PRESCHOOL AIDE Notes: Do not exceed 4 gm/day. (Same as: Tylenol) Start Date: 09/17/18 Stop Date: 09/18/18 Status: Discontinued aspirin 81 mg tablet, enteric coated 81 mg, 1 tab, Route: PO, Drug form: ECTAB, Daily, Dosing Weight 54.545, kg, Star t date: 09/18/18 9:00:00 PRESCHOOL AIDE, Duration: 30 day, Stop date: 10/17/18 9:00:00 PRESCHOOL AIDE Notes: Do not crush or chew.(Same As: Ecotrin) Start Date: 09/18/18 Stop Date: 09/18/18 Status: Discontinued Cardizem 5 mg, Route: IVP, ONCE, Dosing Weight 54.545, kg, Priority: STAT, Start date: 17:37:00 PRESCHOOL AIDE, Stop date: 09/17/18 17:37:00 PRESCHOOL AIDE Start Date: 09/17/18 Stop Date: 09/17/18 Status: Completed cefTRIAXone + sterile water 10 mL 1 gm, Route: IVP, [id number], Dosing Weight 54.545, kg, Start date: 09/17/18 21:00: 00 PRESCHOOL AIDE, Duration: 10 day, Stop date: 09/26/18 21:00:00 PRESCHOOL AIDE, ABX Indication: Urin cris Tract Infection Notes: (Same As: Rocephin).Use with 100 mL NS and infuse over 30 min MEDICA TION WASTE Product Size: 1000 mgProduct Wasted: ___ mg Start Date: 09/17/18 Stop Date: 09/18/18 Status: Discontinued Dextrose 50% Syringe 25 gm, 50 mL, Route: IVP, Drug Form: INJ, Dosing Weight 54.545, kg, PRN, PRN Blo od Glucose Results, Start date: 09/17/18 20:39:00 PRESCHOOL AIDE, Duration: 30 day, Stop da te: 10/17/18 20:38:00 PRESCHOOL AIDE Start Date: 09/17/18 Stop Date: 09/18/18 Status: Discontinued Dextrose 50% Syringe 12.5 gm, 25 mL, Route: IVP, Drug Form: INJ, Dosing Weight 54.545, kg, PRN, PRN B lood Glucose Results, Start date: 09/17/18 20:39:00 PRESCHOOL AIDE, Duration: 30 day, Stop date: 10/17/18 20:38:00 PRESCHOOL AIDE Start Date: 09/17/18 Stop Date: 09/18/18 Status: Discontinued Eliquis 2.5 mg, 1 tab, Route: PO, Drug form: TAB, BID, Dosing Weight 54.545, kg, Start d ate: 09/18/18 17:00:00 PRESCHOOL AIDE, Duration: 30 day, Stop date: 10/18/18 9:00:00 PRESCHOOL AIDE Notes: Same as: Eliquis Start Date: 09/18/18 Stop Date: 09/18/18 Status: Discontinued Eliquis 2.5 mg oral tablet 2.5 mg, PO, BID, 0 Refill(s) Start Date: 09/18/18 Status: Ordered esomeprazole 40 mg, Route: PO, Drug form: ECCAP, Daily, Dosing Weight 54.545, kg, Start date: 09/18/18 9:00:00 PRESCHOOL AIDE, Duration: 30 day, Stop date: 10/17/18 9:00:00 PRESCHOOL AIDE Start Date: 09/18/18 Stop Date: 09/17/18 Status: Deleted esomeprazole 40 mg oral delayed release capsule 40 mg=1 cap, PO, Daily, # 30 cap, 0 Refill(s) Start Date: 09/17/18 Status: Ordered gabapentin 300 mg oral capsule 300 mg, 1 cap, Route: PO, Drug form: CAP, BID, Dosing Weight 54.545, kg, Start d ate: 09/17/18 21:40:00 PRESCHOOL AIDE, Duration: 30 day, Stop date: 10/17/18 21:00:00 PRESCHOOL AIDE Notes: (Same as: Neurontin) Start Date: 09/17/18 Stop Date: 09/18/18 Status: Discontinued glucagon 1 mg, Route: IM, Drug form: PDR/INJ, PRN, Dosing Weight 54.545, kg, PRN Blood Gl ucose Results, Start date: 09/17/18 20:39:00 PRESCHOOL AIDE, Duration: 30 day, Stop date: 0 10/17/18 20:38:00 PRESCHOOL AIDE Start Date: 09/17/18 Stop Date: 09/18/18 Status: Discontinued heparin 5,000 unit, 1 mL, Route: SUB-Q, Drug form: INJ, Q8H-06, Dosing Weight 54.545, kg , Start date: 09/17/18 22:00:00 PRESCHOOL AIDE, Duration: 30 day, Stop date: 10/17/18 14:00 :00 PRESCHOOL AIDE Notes: porcine heparin Start Date: 09/17/18 Stop Date: 09/18/18 Status: Discontinued hydrALAZINE 10 mg oral tablet 10 mg, 1 tab, Route: PO, Drug form: TAB, Q6H, Dosing Weight 54.545, kg, Start da te: 09/18/18 0:00:00 PRESCHOOL AIDE, Duration: 30 day, Stop date: 10/17/18 18:00:00 PRESCHOOL AIDE Notes: (Same as: Apresoline) May interfere w/enteral feedings.Take With Food Start Date: 09/18/18 Stop Date: 09/18/18 Status: Discontinued Lactated Ringers IV 1,000 mL 1,000 mL, Rate: 100 ml/hr, Infuse over: 10 hr, Route: IV, Dosing Weight 54.545 k g, Total Volume: 1,000, Start date: 09/17/18 20:39:00 PRESCHOOL AIDE, Duration: 30 day, Sto p date: 10/17/18 20:38:00 PRESCHOOL AIDE, 1.59, m2 Start Date: 09/17/18 Stop Date: 09/18/18 Status: Discontinued levothyroxine 25 microgram, 1 tab, Route: PO, Drug form: TAB, Q630AM, Dosing Weight 54.545, kg , Start date: 09/18/18 6:30:00 PRESCHOOL AIDE, Duration: 30 day, Stop date: 10/17/18 6:30:0 0 PRESCHOOL AIDE Notes: Take 1 hour before or 2 hours after meal; Enteral feeds may interefere wi th the absorption of this medication. (Same as:Levothroid) Start Date: 09/18/18 Stop Date: 09/18/18 Status: Discontinued Lidoderm 5% topical film (patch) 1 patch, Route: TOP, Q24H, Drug form: FILM, Start date: 09/18/18 9:00:00 PRESCHOOL AIDE, Du ration: 30 day, Stop date: 10/17/18 9:00:00 PRESCHOOL AIDE Notes: Apply only once for up to 12 hours in [id number] period (12 hours on and 12 hours off).(Same as: Lidoderm)"Remove old patch before application of new patch" Start Date: 09/18/18 Stop Date: 09/18/18 Status: Discontinued losartan 25 mg, 1 tab, Route: PO, Drug form: TAB, Daily, Dosing Weight 54.545, kg, Start date: 09/19/18 9:00:00 PRESCHOOL AIDE, Duration: 30 day, Stop date: 10/18/18 9:00:00 PRESCHOOL AIDE Notes: (Same as: Xavier) Start Date: 09/19/18 Stop Date: 09/18/18 Status: Canceled losartan 50 mg, 1 tab, Route: PO, Drug form: TAB, Daily, Dosing Weight 54.545, kg, Start date: 09/18/18 9:00:00 PRESCHOOL AIDE, Duration: 30 day, Stop date: 10/17/18 9:00:00 PRESCHOOL AIDE Notes: (Same as: Xavier) Start Date: 09/18/18 Stop Date: 09/18/18 Status: Discontinued losartan 25 mg oral tablet 25 mg, PO, Daily, 0 Refill(s) Start Date: 09/18/18 Status: Ordered magnesium oxide 400 mg, 1 tab, Route: PO, Drug form: TAB, ONCE, Dosing Weight 54.545, kg, Priori ty: STAT, Start date: 09/17/18 18:46:00 PRESCHOOL AIDE, Stop date: 09/17/18 18:46:00 PRESCHOOL AIDE Notes: (Same as: Mag-Ox 400)Magnesium oxide [id number] elemental magnesiumDose= ____mg magnesium oxide (___mg elemental magnesium) Start Date: 09/17/18 Stop Date: 09/17/18 Status: Completed meclizine 25 mg, 1 tab, Route: PO, Drug form: TAB, Daily, Dosing Weight 54.545, kg, PRN Di zziness, Start date: 09/17/18 21:32:00 PRESCHOOL AIDE, Duration: 30 day, Stop date: 21:31:00 PRESCHOOL AIDE Notes: (Same as: Antivert) Start Date: 09/17/18 Stop Date: 09/18/18 Status: Discontinued meclizine 25 mg oral tablet 25 mg=1 tab, PO, PRN, once daily as needed, 0 Refill(s) Start Date: 09/17/18 Status: Ordered melatonin 3 mg, 1 tab, Route: PO, Drug form: TAB, Bedtime, Dosing Weight 54.545, kg, Start date: 09/17/18 23:00:00 PRESCHOOL AIDE, Duration: 30 day, Stop date: 10/17/18 21:00:00 PRESCHOOL AIDE Notes: (Same as: Melatonin) Start Date: 09/17/18 Stop Date: 09/18/18 Status: Discontinued melatonin 3 mg oral tablet 3 mg=1 tab, PO, Bedtime, 0 Refill(s) Start Date: 09/18/18 Status: Ordered melatonin 3 mg oral tablet 3 mg=1 tab, PO, Bedtime, PRN for insomnia, # 60 tab, 0 Refill(s) Start Date: 09/17/18 Stop Date: 11/16/18 Status: Ordered metoprolol tartrate 25 mg, 1 tab, Route: PO, Drug form: TAB, BID, Dosing Weight 54.545, kg, Priority : STAT, Start date: 09/18/18 12:55:00 PRESCHOOL AIDE, Duration: 30 day, Stop date: 10/18/18 9:00:00 PRESCHOOL AIDE Notes: (Same as: Lopressor) Start Date: 09/18/18 Stop Date: 09/18/18 Status: Discontinued metoprolol tartrate 25 mg oral tablet 25 mg, PO, BID, 0 Refill(s) Start Date: 09/18/18 Status: Ordered Myrbetriq 25 mg oral tablet, extended release 25 mg, 1 tab, Route: PO, Drug form: ERTAB, Daily, Dosing Weight 54.545, kg, Star t date: 09/18/18 9:00:00 PRESCHOOL AIDE, Duration: 30 day, Stop date: 10/17/18 9:00:00 PRESCHOOL AIDE Start Date: 09/18/18 Stop Date: 09/18/18 Status: Discontinued Nitrostat 0.4 mg sublingual tablet 0.4 mg, 1 tab, Route: SL, Drug form: TAB, Q5Min, Dosing Weight 54.545, kg, PRN C hest Pain, Start date: 09/17/18 21:32:00 PRESCHOOL AIDE, Duration: 30 day, Stop date: 10/17 21:31:00 PRESCHOOL AIDE Notes: (Same as:Nitroquick, Nitrostat)"Do Not Crush" Sublingual tablet Start Date: 09/17/18 Stop Date: 09/18/18 Status: Discontinued ondansetron 4 mg, 2 mL, Route: IVP, Drug form: INJ, Q8H, Dosing Weight 54.545, kg, PRN Nause a & Vomiting, Start date: 09/17/18 20:39:00 PRESCHOOL AIDE, Duration: 30 day, Stop date: 10/17/18 20:38:00 PRESCHOOL AIDE Notes: (Same as: Debra) MEDICATION WASTE Product Size: 4 mgProduct Was laurent: ___ mg Start Date: 09/17/18 Stop Date: 09/18/18 Status: Discontinued predniSONE 5 mg, 2 tab, Route: PO, Drug form: TAB, Daily, Dosing Weight 54.545, kg, Start d ate: 09/18/18 9:00:00 PRESCHOOL AIDE, Duration: 30 day, Stop date: 10/17/18 9:00:00 PRESCHOOL AIDE Notes: Take with food. Start Date: 09/18/18 Stop Date: 09/18/18 Status: Discontinued Protonix 40 mg, 1 tab, Route: PO, Drug form: ECTAB, Daily, Start date: 09/18/18 9:00:[address], Duration: 30 day, Stop date: 10/17/18 9:00:00 PRESCHOOL AIDE Notes: Tablet should not be chewed or crushed.(Same as: Protonix) Start Date: 09/18/18 Stop Date: 09/18/18 Status: Discontinued remove patch 1 patch, Route: TOP, Bedtime, Drug form: ERFILM, Start date: 09/19/18 21:00:[address], Duration: 30 day, Stop date: 10/18/18 21:00:00 PRESCHOOL AIDE Notes: Remove patch 12 hours after application each day. Start Date: 09/19/18 Stop Date: 09/18/18 Status: Canceled Saline Flush 0.9% 10 ml, Route: IVP, Drug Form: INJ, Dosing Weight 54.545, kg, PRN, PRN Line Flush , Start date: 09/17/18 20:39:00 PRESCHOOL AIDE, Duration: 30 day, Stop date: 10/17/18 20:38 :00 PRESCHOOL AIDE Notes: (Same as: BD Posiflush) Start Date: 09/17/18 Stop Date: 09/18/18 Status: Discontinued sertraline 50 mg, 1 tab, Route: PO, Drug form: TAB, Daily, Dosing Weight 54.545, kg, Start date: 09/18/18 9:00:00 PRESCHOOL AIDE, Duration: 30 day, Stop date: 10/17/18 9:00:00 PRESCHOOL AIDE Notes: (Same as: Zoloft) Start Date: 09/18/18 Stop Date: 09/18/18 Status: Discontinued tramadol 50 mg, Route: PO, Drug form: TAB, ONCE, Dosing Weight 54.545, kg, > 50 kg, Priority: STAT, Start date: 09/17/18 17:42:00 PRESCHOOL AIDE, Stop date: 09/17/18 17:42:00 PRESCHOOL AIDE Start Date: 09/17/18 Stop Date: 09/17/18 Status: Completed tramadol 50 mg oral tablet 50 mg=1 tab, PO, Q8H, PRN Pain, # 60 tab, 0 Refill(s) Start Date: 09/17/18 Stop Date: 10/07/18 Status: Ordered tramadol 50 mg oral tablet 50 mg, 1 tab, Route: PO, Drug form: TAB, Q8H, Dosing Weight 54.545, kg, PRN Pain Score 4-6, Start date: 09/17/18 21:32:00 PRESCHOOL AIDE, Duration: 30 day, Stop date: 09/25 01/10 21:31:00 PRESCHOOL AIDE Notes: Not to exceed 400mg/day. (Same As: Ultram) Start Date: 09/17/18 Stop Date: 09/18/18 Status: Discontinued Results Most recent to 1 oldest [Reference Range]: Neutrophils # 7.3 K/CMM [1.5-8.1 K/CMM] (09/17/18 4:13 PM) Lymphocytes # 1.3 K/CMM [1.0-5.5 K/CMM] (09/17/18 4:13 PM) Monocytes # [0.0-0.8 0.8 K/CMM K/CMM] (09/17/18 4:13 PM) Eosinophils # 0.2 K/CMM [0.0-0.5 K/CMM] (09/17/18 4:13 PM) Basophils # [0.0-0.2 0.1 K/CMM K/CMM] (09/17/18 4:13 PM) eGFR 38 mL/min/1.73m2 1 *NA* (09/17/18 4:13 PM) A/G Ratio [0.7-1.6] 0.6 *LOW* (09/17/18 4:13 PM) Albumin Lvl [3.5-5.0 2.9 g/dL g/dL] *LOW* (09/17/18 4:13 PM) Alk Phos [39-136 108 unit/L unit/L] (09/17/18 4:13 PM) ALT [0-65 unit/L] 21 unit/L (09/17/18 4:13 PM) AGAP [10.0-20.0 15.7 mEq/L mEq/L] (09/17/18 4:13 PM) AST [0-37 unit/L] 35 unit/L (09/17/18 4:13 PM) B/C Ratio [6-25] 15 (09/17/18 4:13 PM) Basophils [0.0-1.0 0.9 % %] (09/17/18 4:13 PM) BUN [7-22 mg/dL] 19 mg/dL (09/17/18 4:13 PM) Calcium Lvl 9.0 mg/dL [8.5-10.5 mg/dL] (09/17/18 4:13 PM) Total CK [12-191 144 unit/L unit/L] (09/17/18 4:13 PM) Chloride Lvl [95-109 95 mEq/L mEq/L] (09/17/18 4:13 PM) CO2 [24-32 mEq/L] 26 mEq/L (09/17/18 4:13 PM) Creatinine Lvl 1.27 mg/dL [0.50-1.40 mg/dL] (09/17/18 4:13 PM) Eosinophils [0.0-4.0 1.7 % %] (09/17/18 4:13 PM) Globulin [2.7-4.2 4.7 g/dL g/dL] *HI* (09/17/18 4:13 PM) Glucose Lvl [70-99 116 mg/dL mg/dL] *HI* (09/17/18 4:13 PM) Hct [36.0-48.0 %] 32.2 % *LOW* (09/17/18 4:13 PM) Hgb [12.0-16.0 g/dL] 11.0 g/dL *LOW* (09/17/18 4:13 PM) INR [0.85-1.17] 1.02 (09/17/18 4:13 PM) Potassium Lvl 4.7 mEq/L 2 [3.5-5.1 mEq/L] (09/17/18 4:13 PM) Lactic Acid Lvl 0.9 mMol/L [0.5-2.2 mMol/L] (09/17/18 4:13 PM) Lymphocytes 13.9 % [20.0-40.0 %] *LOW* (09/17/18:13 PM) MCH [27.0-31.0 pg] 30.8 pg (09/17/18 4:13 PM) MCHC [32.0-36.0 34.0 g/dL g/dL] (09/17/18 4:13 PM) MCV [80.0-98.0 fL] 90.6 fL (09/17/18:13 PM) Magnesium Lvl 1.4 mg/dL [1.8-2.4 mg/dL] *LOW* (09/17/18:13 PM) Monocytes [2.0-12.0 7.9 % %] (09/17/18 4:13 PM) MPV [7.4-10.4 fL] 7.7 fL (09/17/18 4:13 PM) Sodium Lvl [135-145 132 mEq/L mEq/L] *LOW* (12/25/18 4:13 PM) Phosphorus [2.5-4.5 3.6 mg/dL mg/dL] (09/17/18 4:13 PM) Platelet [133-450 420 K/CMM K/CMM] (09/17/18 4:13 PM) Segs [45.0-75.0 %] 75.6 % *HI* (09/17/18 4:13 PM) Total Protein 7.6 g/dL [6.4-8.4 g/dL] (09/17/18 4:13 PM) PT [12.0-14.7 13.2 seconds seconds] (09/17/18 4:13 PM) PTT [22.9-35.8 32.5 seconds seconds] (09/17/18 4:13 PM) RBC [4.20-5.40 3.56 M/CMM M/CMM] *LOW* (09/17/18 4:13 PM) RDW [11.5-14.5 %] 13.8 % (09/17/18 4:13 PM) Bili Total [0.2-1.3 0.6 mg/dL mg/dL] (09/17/18 4:13 PM) Troponin-I <0.02 ng/mL [0.00-0.40 ng/mL] (09/17/18 4:13 PM) UA Bacteria [None Many /HPF Seen /HPF] (09/17/18 4:13 PM) UA Bili [Negative] Negative *NA* (09/17/18 4:13 PM) UA Blood [Negative] Negative (09/17/18 4:13 PM) UA Color [Yellow] Yellow *NA* (09/17/18 4:13 PM) UA Glucose Negative [Negative] (09/17/18 4:13 PM) UA Ketones Negative [Negative] *NA* (09/17/18 4:13 PM) UA Leuk Est Small [Negative] *ABN* (09/17/18 4:13 PM) UA Nitrite Negative [Negative] (09/17/18 4:13 PM) UA pH [5.0-8.0] 6.0 (09/17/18 4:13 PM) UA Protein Negative [Negative] (09/17/18 4:13 PM) UA RBC [0-2] None Seen (09/17/18 4:13 PM) UA Spec Grav 1.020 [<=1.030] (09/17/18 4:13 PM) UA Sq Epi [Few /LPF] Occasional /LPF (09/17/18 4:13 PM) UA Turbidity [Clear] Clear (09/17/18 4:13 PM) UA Urobilinogen 0.2 EU/dL [0.1-1.0 EU/dL] (09/17/18 4:13 PM) UA WBC [None Seen 11-20 /HPF /HPF] *ABN* (09/17/18 4:13 PM) WBC [3.7-10.4 K/CMM] 9.7 K/CMM (09/17/18 4:13 PM) 1Result Comment: The eGFR is calculated using the [...] from the National Kidney Disease Education Program ( NKDEP) which additionally recommends that when the eGFR is used in patients with extremes of body mass index for purposes of drug dosing, the eGFR should be mul tiplied by the estimated BMI. 2Result Comment: specimen hemolyzed. Microbiology Reports TEST: Culture: Urine STATUS: Auth (Verified) BODY SITE: SOURCE: Urine, Clean Catch COLLECTED DATE/TIME: 09/17/18 4:13 PM FINAL REPORT 50,000 - 100,000 CFU/mL Klebsiella pneumoniae ssp pneumoniae ORGANISM:Klebsiella pneumoniae ssp pneumoniae Immunizations Given and Recorded Vaccine Date Status Refusal Reason pneumococcal 23-valent vaccine 08/20/18 Given pneumococcal 23-valent vaccine 09/07/09 Given pneumococcal 13-valent vaccine 05/27/16 Given Procedures Procedure Date Related Diagnosis Body Site Status Cholecystectomy Completed Colonoscopy Completed Endoscopy Completed Hysterectomy Completed MRI Completed Spiral CT scan Completed Social History Social History Type Response Substance Abuse Use: None. Sexual Sexually active: No. Employment/School Status: Unemployed. Alcohol Never Smoking Status Never smoker; Ready to change: No; Concerns about tobacco use in household: No; Exposure to Tobacco Smoke None; Cigarette Smoking Last 365 Days No; Reg Smoking Cessation Counseling No entered on: 09/17/18 Assessment and Plan Extracted from: Title: History and Physical Author: Esther Sena MD [...]
--- OUTSIDE RECORDS SUMMARY | 2019-05-23 06:43 | XMS REPORT | Summary of Care ---
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) - Hypothyroidism, unspecified (Final) - Hyperlipidemia, unspecified (Final) - Polymyalgia rheumatica (Final) - Personal history of urinary (tract) infections (Final) - Personal history of other venous thrombosis and embolism (Final) - Discharge Disposition: Home Care with Home Health Attending Physician: Alexey Cruz MD Admitting Physician: Alexey Cruz MD Vital Signs 1 2 3 Most recent to oldest [Reference Range]: 152.4 cm (05/16/18 8:47 PM) Height 98.1 DegF (05/17/18 1:56 PM) 97.9 DegF (05/17/18 7:49 AM) 97.7 DegF (05/17/18 4:23 AM) Temperature Oral [96.4-99.1 DegF] 129/35 mmHg (05/17/18 1:56 PM) 155/47 mmHg *HI* (05/17/18 7:49 AM) 151/64 mmHg *HI* (05/17/18 4:23 AM) Blood Pressure [90-140/60-90 mmHg] 17 BRMIN (05/17/18 1:56 PM) 16 BRMIN (05/17/18 8:14 AM) 17 BRMIN (05/17/18 7:49 AM) Respiratory Rate [14-20 BRMIN] 67 bpm (05/17/18 1:56 PM) 57 bpm *LOW* (05/17/18 7:49 AM) 56 bpm *LOW* (05/17/18 4:23 AM) Peripheral Pulse Rate [60-100 bpm] 59.091 kg (05/16/18 8:47 PM) Weight 25.44 m2 (05/16/18 8:47 PM) Body Mass Index Problem List Condition Effective Dates Status Health Status Informant Escherichia Active coli(Confirmed)1 Heart Resolved abnormality(Confirme d) Hypertension(Confirm Active ed) Hypertension(Confirm Resolved ed) Nausea(Confirmed) 03/30/12 Active 1Problem added by Discern Expert. Allergies, Adverse Reactions, Alerts Substance Reaction Severity Status sulfa drugs Resolved NKDA Active Medications Cozaar 50 mg, 1 tab, Route: PO, Drug form: TAB, Daily, Start date: 05/17/18 9:00:00 CDT , Duration: 30 day, Stop date: 06/15/18 9:00:00 CDT Notes: (Same as: Cozaar) Start Date: 05/17/18 Stop Date: 05/17/18 Status: Discontinued hydrochlorothiazide 12.5 mg, 1 tab, Route: PO, Drug form: TAB, Daily, Start date: 05/17/18 9:00:00 C DT, Duration: 30 day, Stop date: 06/15/18 9:00:00 CDT Notes: (Same as: Hydrodiuril). Give with food. Start Date: 05/17/18 Stop Date: 05/17/18 Status: Discontinued hydrochlorothiazide-losartan 12.5 mg-50 mg oral tablet 1 tab, Route: PO, Drug Form: TAB, Dosing Weight 59.091, kg, Daily, Start date: 0 05/17/18 9:00:00 CDT, Duration: 30 day, Stop date: 06/15/18 9:00:00 CDT Start Date: 05/17/18 Stop Date: 05/17/18 Status: Deleted Imdur 30 mg, 1 tab, Route: PO, Drug form: ERTAB, QAM, Dosing Weight 59.091, kg, Start date: 05/17/18 9:00:00 CDT, Duration: 30 day, Stop date: 06/15/18 9:00:00 CDT Notes: (Same as:Imdur)"Do Not Crush" Take on empty stomach/ full glass of water . Do not crush Start Date: 05/17/18 Stop Date: 05/17/18 Status: Discontinued KlonoPIN 0.25 mg, 0.5 tab, Route: PO, Drug form: TAB, BID, Dosing Weight 59.091, kg, Prio rity: NOW, Start date: 05/17/18 7:21:00 CDT, Duration: 30 day, Stop date: 21:00:00 CDT Notes: (Same As: KlonoPIN) Start Date: 05/17/18 Stop Date: 05/17/18 Status: Discontinued Lopressor 25 mg, 1 tab, Route: PO, Drug form: ERTAB, Daily, Dosing Weight 59.091, kg, Star t date: 05/17/18 9:00:00 CDT, Duration: 30 day, Stop date: 06/15/18 9:00:00 CDT Notes: (Same as: Toprol XL) Do Not Crush Start Date: 05/17/18 Stop Date: 05/17/18 Status: Discontinued Neurontin 600 mg, 2 cap, Route: PO, Drug form: CAP, Daily, Dosing Weight 59.091, kg, Start date: 05/17/18 9:00:00 CDT, Duration: 30 day, Stop date: 06/15/18 9:00:00 CDT Notes: (Same as: Neurontin) Start Date: 05/17/18 Stop Date: 05/17/18 Status: Discontinued pneumococcal 13-valent vaccine 0.5 mL, Route: IM, ONCALL, Start date: 05/16/18 16:05:13 CDT, Stop date: 8 16:00:13 CDT Start Date: 05/16/18 Stop Date: 05/16/18 Status: Canceled sertraline 50 mg, 1 tab, Route: PO, Drug form: TAB, BID, Dosing Weight 59.091, kg, Start da te: 05/17/18 9:00:00 CDT, Duration: 30 day, Stop date: 06/15/18 17:00:00 CDT Notes: (Same as: Zoloft) Start Date: 05/17/18 Stop Date: 05/17/18 Status: Discontinued sucralfate 1 gm, 1 tab, Route: PO, Drug form: TAB, TID, Dosing Weight 59.091, kg, Start nayana e: 05/17/18 9:00:00 CDT, Duration: 30 day, Stop date: 06/15/18 17:00:00 CDT Notes: May interfere w/enteral feeds - Take 1 hr before or 2 hr after antacids, dairy pdt, meals & minerals - On empty stomach.For patients unable to swallow tablet, dissolve in 10mL - 30mL of water or juice and stir before giving. (Same As: Carafate) Start Date: 05/17/18 Stop Date: 05/17/18 Status: Discontinued Results ELECTROLYTES Most recent to 1 2 oldest [Reference Range]: Sodium Lvl [135-145 135 mEq/L mEq/L] (05/16/18 4:08 PM) Potassium Lvl 4.0 mEq/L [3.5-5.1 mEq/L] (05/16/18 4:08 PM) Chloride Lvl [95-109 95 mEq/L mEq/L] (05/16/18 4:08 PM) CO2 [24-32 mEq/L] 33 mEq/L *HI* (05/16/18 4:08 PM) AGAP [10.0-20.0 11.0 mEq/L mEq/L] (05/16/18 4:08 PM) CHEM PANEL Most recent to 1 2 oldest [Reference Range]: Creatinine Lvl 1.40 mg/dL [0.50-1.40 mg/dL] (05/16/18 4:08 PM) eGFR 34 mL/min/1.73m2 1 *NA* (05/16/18 4:08 PM) BUN [7-22 mg/dL] 30 mg/dL *HI* (05/16/18 4:08 PM) B/C Ratio [6-25] 21 (05/16/18 4:08 PM) Glucose Lvl [70-99 144 mg/dL mg/dL] *HI* (05/16/18 4:08 PM) Total Protein 6.6 g/dL [6.4-8.4 g/dL] (05/16/18 4:08 PM) Albumin Lvl [3.5-5.0 3.2 g/dL g/dL] *LOW* (05/16/18 4:08 PM) Globulin [2.7-4.2 3.4 g/dL g/dL] (05/16/18 4:08 PM) A/G Ratio [0.7-1.6] 0.9 (05/16/18 4:08 PM) Calcium Lvl 8.5 mg/dL [8.5-10.5 mg/dL] (05/16/18 4:08 PM) Phosphorus [2.5-4.5 3.3 mg/dL mg/dL] (05/16/18 4:08 PM) Magnesium Lvl 2.1 mg/dL [1.8-2.4 mg/dL] (05/16/18 4:08 PM) ALT [0-65 unit/L] 22 unit/L (05/16/18 4:08 PM) AST [0-37 unit/L] 21 unit/L (05/16/18 4:08 PM) Alk Phos [39-136 50 unit/L unit/L] (05/16/18 4:08 PM) Bili Total [0.2-1.3 0.2 mg/dL mg/dL] (05/16/18 4:08 PM) 1Result Comment: The eGFR is calculated [...] be mul tiplied by the estimated BMI. DRUG SCREEN Most recent to 1 2 oldest [Reference Range]: U Amph Scr Negative [Negative] *NA* (05/17/18 12:29 AM) U Samantha Scr Negative [Negative] *NA* (05/17/18 12:29 AM) U Benzodiaz Scr Negative [Negative] *NA* (05/17/18 12:29 AM) U Cannab Scr Negative [Negative] *NA* (05/17/18 12:29 AM) U Cocaine Scr Negative [Negative] *NA* (05/17/18 12:29 AM) U Methadone Scr Negative [Negative] *NA* (05/17/18 12:29 AM) U Opiate Scr Negative [Negative] *NA* (05/17/18 12:29 AM) U Phencyclidine Scr Negative [Negative] *NA* (05/17/18 12:29 AM) U Propoxyph Scr Negative [Negative] *NA* (05/17/18 12:29 AM) UDS Note See Note (05/17/18 12:29 AM) URINE AND STOOL Most recent to 1 2 oldest [Reference Range]: UA Turbidity [Clear] Slight Clear *ABN* (05/16/18 3:36 PM) (05/17/18 12:29 AM) UA Color Ltyellow Ltyellow *NA* *NA* (05/17/18 12:29 AM) (05/16/18 3:36 PM) UA pH [5.0-8.0] 6.0 6.0 (05/17/18 12:29 AM) (05/16/18 3:36 PM) UA Spec Grav 1.011 1.011 [<=1.030] (05/17/18 12:29 AM) (05/16/18 3:36 PM) UA Glucose [Negative Negative mg/dL Negative mg/dL mg/dL] *NA* *NA* (05/17/18 12:29 AM) (05/16/18 3:36 PM) UA Blood [Negative] Negative Negative (05/17/18 12:29 AM) (05/16/18 3:36 PM) UA Ketones [Negative Negative mg/dL Negative mg/dL mg/dL] *NA* *NA* (05/17/18 12:29 AM) (05/16/18 3:36 PM) UA Protein [Negative Negative mg/dL Negative mg/dL mg/dL] (05/17/18 12:29 AM) (05/16/18 3:36 PM) UA Urobilinogen <=1.0 mg/dL <=1.0 mg/dL [0.1-1.0 mg/dL] *NA* *NA* (05/17/18 12:29 AM) (05/16/18 3:36 PM) UA Bili [Negative] Negative Negative *NA* *NA* (05/17/18 12:29 AM) (05/16/18 3:36 PM) UA Leuk Est Negative Negative [Negative] (05/17/18 12:29 AM) (05/16/18 3:36 PM) UA Nitrite Negative Negative [Negative] (05/17/18 12:29 AM) (05/16/18 3:36 PM) UA WBC [0-5 /HPF] <1 /HPF <1 /HPF (05/17/18 12:29 AM) (05/16/18 3:36 PM) UA RBC [0-2 /HPF] <1 /HPF <1 /HPF (05/17/18 12:29 AM) (05/16/18 3:36 PM) UA Sq Epi [Few /LPF] Occasional /LPF Occasional /LPF *NA* *NA* (05/17/18 12:29 AM) (05/16/18 3:36 PM) UA Hyal Cast [0-2 1 /LPF /LPF] (05/16/18 3:36 PM) HEMATOLOGY Most recent to 1 2 oldest [Reference Range]: WBC [3.7-10.4 K/CMM] 6.6 K/CMM (05/16/18 4:08 PM) RBC [4.20-5.40 3.60 M/CMM M/CMM] *LOW* (05/16/18 4:08 PM) Hgb [12.0-16.0 g/dL] 11.1 g/dL *LOW* (05/16/18 4:08 PM) Hct [36.0-48.0 %] 33.3 % *LOW* (05/16/18 4:08 PM) MCV [80.0-98.0 fL] 92.5 fL (05/16/18 4:08 PM) MCH [27.0-31.0 pg] 30.9 pg (05/16/18 4:08 PM) MCHC [32.0-36.0 33.4 g/dL g/dL] (05/16/18 4:08 PM) RDW [11.5-14.5 %] 14.1 % (05/16/18 4:08 PM) MPV [7.4-10.4 fL] 7.5 fL (05/16/18 4:08 PM) Platelet [133-450 249 K/CMM K/CMM] (05/16/18 4:08 PM) Segs [45.0-75.0 %] 52.4 % (05/16/18 4:08 PM) Lymphocytes 31.6 % [20.0-40.0 %] (05/16/18 4:08 PM) Monocytes [2.0-12.0 10.9 % %] (05/16/18 4:08 PM) Eosinophils [0.0-4.0 3.8 % %] (05/16/18 4:08 PM) Basophils [0.0-1.0 1.3 % %] *HI* (05/16/18 4:08 PM) Neutrophils # 3.5 K/CMM [1.5-8.1 K/CMM] (05/16/18 4:08 PM) Lymphocytes # 2.1 K/CMM [1.0-5.5 K/CMM] (05/16/18 4:08 PM) Monocytes # [0.0-0.8 0.7 K/CMM K/CMM] (05/16/18 4:08 PM) Eosinophils # 0.2 K/CMM [0.0-0.5 K/CMM] (05/16/18 4:08 PM) Basophils # [0.0-0.2 0.1 K/CMM K/CMM] (05/16/18 4:08 PM) PT [12.0-14.7 12.9 seconds seconds] (05/16/18 4:08 PM) INR [0.85-1.17] 0.97 (05/16/18 4:08 PM) PTT [22.9-35.8 30.1 seconds seconds] (05/16/18 4:08 PM) Immunizations Given and Recorded Vaccine Date Status [...] No entered on: 09/17/18 Assessment and Plan No data available for this section
--- OUTSIDE RECORDS SUMMARY | 2019-05-23 06:43 | XMS REPORT | Summary of Care ---
Author Author [facility] Organization [facility] Address Unknown Phone Unavailable Care Team Providers Care Candy Waffle Assembler Name Role Phone Kathie Guzman PCP Encounter HQ Encntr_[email or web address](FIN) [phone] Date(s): 08/01/18 - 08/02/18 [facility] [address] [facility] [address] [place] [phone] Vital Signs No data available for this section Problem List Condition Effective Dates Status Health Status Informant Escherichia Active coli(Confirmed)1 Heart Resolved abnormality(Confirme d) Hypertension(Confirm Active ed) Hypertension(Confirm Resolved ed) Nausea(Confirmed) 03/30/12 Active 1Problem added by Discern Expert. Allergies, Adverse Reactions, Alerts Substance Reaction Severity Status sulfa drugs Resolved NKDA Active Medications No data available for this section [...]
--- OUTSIDE RECORDS SUMMARY | 2019-05-23 06:43 | XMS REPORT | Summary of Care ---
Author Author [facility] Organization [facility] Address Unknown Phone Unavailable Encounter HQ Encntr_aliamy(FIN) [phone] Date(s): 11/29/17 - 11/29/17 [facility] [address] [place] [address] [phone] Attending Physician: Radha Grover PA-C Referring Physician: Alexey Cruz MD Vital Signs No data available for this section Problem List Condition Effective Dates Status Health Status Informant Escherichia Active coli(Confirmed)1 Heart Resolved abnormality(Confirme d) Hypertension(Confirm Active ed) Hypertension(Confirm Resolved ed) Nausea(Confirmed) 03/30/12 Active 1Problem added by Discern Expert. Allergies, Adverse Reactions, Alerts Substance Reaction Severity Status sulfa drugs Active Medications No data available for this section Results No data available for this section Immunizations Given and Recorded Vaccine Date Status Refusal Reason pneumococcal 13-valent vaccine 05/27/16 Given pneumococcal 23-valent vaccine 09/07/09 Given Procedures Procedure Date Related Diagnosis Body Site Status Cholecystectomy Completed Colonoscopy Completed Endoscopy Completed Hysterectomy Completed MRI Completed Spiral CT scan Completed Social History Social History Type Response Smoking Status Never smoker; Concerns about tobacco use in household: No; Exposure to Tobacco Smoke None; Cigarette Smoking Last 365 Days No; Reg Smoking Cessation Counseling No entered on: 05/26/16 Assessment and Plan No data available for this section
--- OUTSIDE RECORDS SUMMARY | 2019-05-23 06:43 | XMS REPORT | Summary of Care ---
Author Author [facility] Organization [facility] Address Unknown Phone Unavailable Care Team Providers Care Membership Coordinator Name Role Phone Alexey Cruz PCP Encounter [facility] Zia(ANGELITO) [phone] Date(s): 08/16/18 - 08/21/18 [facility] [address] [place] [address]- [phone] Encounter Diagnosis Sepsis, unspecified organism (Final) - 08/27/18 Acute respiratory failure with hypoxia (Final) - Pneumonia due to other Gram-negative bacteria (Final) - Acute kidney failure, unspecified (Final) - Chronic obstructive pulmonary disease with (acute) exacerbation (Final) - Urinary tract infection, site not specified (Final) - Encounter for immunization (Final) - Chronic obstructive pulmonary disease with acute lower respiratory infection (Final) - Thrombocytopenia, unspecified (Final) - Gastro-esophageal reflux disease without esophagitis (Final) - Hypothyroidism, unspecified (Final) - Atherosclerotic heart disease of [place] coronary artery without angina pectoris (Final) - Anemia in other chronic diseases classified elsewhere (Final) - Essential (primary) hypertension (Final) - Hyperlipidemia, unspecified (Final) - Polymyalgia rheumatica (Final) - Other malaise (Final) - Legal blindness, 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) - Dehydration (Final) - longterm (current) use of systemic steroids (Final) - Personal history of other venous thrombosis and embolism (Final) - Personal history of urinary (tract) infections (Final) - Multiple fractures of ribs, left side, subsequent encounter for fracture with ro utine healing (Final) - Unspecified fracture of T5-T6 vertebra, subsequent encounter for fracture with r outine healing (Final) - Unspecified fracture of fourth thoracic vertebra, subsequent encounter for fract ure with routine healing (Final) - Unspecified fracture of second lumbar vertebra, subsequent encounter for fractur e with routine healing (Final) - Unspecified fracture of third lumbar vertebra, subsequent encounter for fracture with routine healing (Final) - Discharge Disposition: Snf Facility Attending Physician: Alexey Cruz MD Admitting Physician: Alexey Cruz MD Vital Signs 1 2 3 Most recent to oldest [Reference Range]: 152.4 cm (08/16/18 11:19 PM) 152.4 cm (08/16/18 5:35 PM) Height 98.5 DegF (08/21/18 4:26 PM) 98.8 DegF (08/21/18 12:10 PM) 98 DegF (08/21/18 8:15 AM) Temperature Oral [96.4-99.1 DegF] 146/79 mmHg *HI* (08/21/18 4:26 PM) 148/71 mmHg *HI* (08/21/18 12:10 PM) 171/73 mmHg *HI* (08/21/18 8:15 AM) Blood Pressure [90-140/60-90 mmHg] 16 BRMIN (08/21/18 4:26 PM) 16 BRMIN (08/21/18 12:10 PM) 16 BRMIN (08/21/18 8:15 AM) Respiratory Rate [14-20 BRMIN] 76 bpm (08/21/18 4:26 PM) 78 bpm (08/21/18 12:10 PM) 82 bpm (08/21/18 8:15 AM) Peripheral Pulse Rate [60-100 bpm] 61.364 kg (08/16/18 11:19 PM) 54.545 kg (08/16/18 5:35 PM) Weight 26.42 m2 (08/16/18 11:19 PM) 23.48 m2 (08/16/18 5:35 PM) Body Mass Index Problem List Condition Effective Dates Status Health Status Informant Escherichia Active coli(Confirmed)1 Heart Resolved abnormality(Confirme d) Hypertension(Confirm Active ed) Hypertension(Confirm Resolved ed) Nausea(Confirmed) 03/30/12 Active 1Problem added by Discern Expert. Allergies, Adverse Reactions, Alerts Substance Reaction Severity Status sulfa drugs Resolved NKDA Active Medications RN-Wait for trough draw before 02:00 Vanco on 08/19 RN-Wait for trough draw before 02:00 Vanco on 08/19, Attn:RN, Drug form: M ISC, Route: MISC, ONCE, 08/19/18 1:00:00 CHEMICAL APPLICATOR, Stop date: 08/19/18 1:00:00 CHEMICAL APPLICATOR Start Date: 08/19/18 Stop Date: 08/19/18 Status: Completed acetaminophen 650 mg, 2 tab, Route: PO, Drug form: TAB, ONCE, Dosing Weight 54.545, kg, Start date: 08/16/18 18:09:00 CHEMICAL APPLICATOR, Stop date: 08/16/18 18:09:00 CHEMICAL APPLICATOR Notes: Do not exceed 4 gm/day. (Same as: Tylenol) Start Date: 08/16/18 Stop Date: 08/16/18 Status: Completed aspirin 81 mg tablet, enteric coated 81 mg, 1 tab, Route: PO, Drug form: ECTAB, Daily, Dosing Weight 61.364, kg, Star t date: 08/17/18 9:00:00 CHEMICAL APPLICATOR, Duration: 30 day, Stop date: 09/15/18 9:00:00 CHEMICAL APPLICATOR Notes: Do not crush or chew.(Same As: Ecotrin) Start Date: 08/17/18 Stop Date: 08/21/18 Status: Discontinued bisacodyl 10 mg, 2 tab, Route: PO, Drug form: ECTAB, Q24H, Dosing Weight 61.364, kg, PRN C onstipation, Start date: 08/17/18 0:58:00 CHEMICAL APPLICATOR, Duration: 30 day, Stop date: 08/25 01/09 0:57:00 CHEMICAL APPLICATOR Notes: (Same As: Dulcolax, Correctol) (Do Not Crush) "Do Not Crush" Start Date: 08/17/18 Stop Date: 08/21/18 Status: Discontinued cefepime + Sodium Chloride 0.9% IV 100 mL 1 gm, Route: IVPB, [id number], Dosing Weight 54.545, kg, CrCl< 30ml/lmin, Priority: NOW, Start date: 08/16/18 21:57:00 CHEMICAL APPLICATOR, Duration: 14 day, Stop date: 08/29/18 23:00:00 CHEMICAL APPLICATOR, ABX Indication: Other (specify in Comments) Notes: (Same As: Maxipime) MEDICATION WASTE Product Size: 1000 mgProduc t Wasted: ___ mg Start Date: 08/16/18 Stop Date: 08/21/18 Status: Discontinued docusate sodium 100 mg oral capsule 100 mg, 1 cap, Route: PO, Drug form: CAP, BID, Dosing Weight 61.364, kg, Start d ate: 08/17/18 9:00:00 CHEMICAL APPLICATOR, Duration: 30 day, Stop date: 09/15/18 17:00:00 CHEMICAL APPLICATOR Notes: (Same as: Colace) (Do Not Crush) Start Date: 08/17/18 Stop Date: 08/21/18 Status: Discontinued gabapentin 300 mg oral capsule 300 mg, 1 cap, Route: PO, Drug form: CAP, BID, Dosing Weight 61.364, kg, Start d ate: 08/17/18 21:00:00 CHEMICAL APPLICATOR, Duration: 30 day, Stop date: 09/16/18 9:00:00 CHEMICAL APPLICATOR Notes: (Same as: Neurontin) Start Date: 08/17/18 Stop Date: 08/21/18 Status: Discontinued gabapentin 300 mg oral capsule 300 mg=1 cap, PO, BID, 0 Refill(s) Start Date: 08/17/18 Status: Ordered hydrALAZINE 10 mg oral tablet 10 mg, 1 tab, Route: PO, Drug form: TAB, Q6H, Dosing Weight 61.364, kg, Start da te: 08/17/18 6:00:00 CHEMICAL APPLICATOR, Duration: 30 day, Stop date: 09/16/18 0:00:00 CHEMICAL APPLICATOR Notes: (Same as: Apresoline) May interfere w/enteral feedings.Take With Food Start Date: 08/17/18 Stop Date: 08/21/18 Status: Discontinued Levaquin 500 mg oral tablet 500 mg=1 tab, PO, Q24H, X 7 day, # 7 tab, 0 Refill(s), other Start Date: 08/21/18 Stop Date: 08/28/18 Status: Completed levothyroxine 25 microgram, 1 tab, Route: PO, Drug form: TAB, Q630AM, Dosing Weight 61.364, kg , Start date: 08/17/18 6:30:00 CHEMICAL APPLICATOR, Duration: 30 day, Stop date: 09/15/18 6:30:0 0 CHEMICAL APPLICATOR Notes: Take 1 hour before or 2 hours after meal; Enteral feeds may interefere wi th the absorption of this medication. (Same as:Levothroid) Start Date: 08/17/18 Stop Date: 08/21/18 Status: Discontinued Lidoderm 5% topical film (patch) 1 patch, Route: TOP, Bedtime, Drug form: FILM, Start date: 08/17/18 1:00:00 CHEMICAL APPLICATOR, Duration: 30 day, Stop date: 09/15/18 21:00:00 CHEMICAL APPLICATOR Notes: Apply only once for up to 12 hours in [id number] period (12 hours on and 12 hours off).(Same as: Lidoderm)"Remove old patch before application of new patch" Start Date: 08/17/18 Stop Date: 08/21/18 Status: Discontinued losartan 50 mg, 1 tab, Route: PO, Drug form: TAB, Daily, Dosing Weight 61.364, kg, Start date: 08/17/18 9:00:00 CHEMICAL APPLICATOR, Duration: 30 day, Stop date: 09/15/18 9:00:00 CHEMICAL APPLICATOR Notes: (Same as: Cozaar) Start Date: 08/17/18 Stop Date: 08/21/18 Status: Discontinued LR IV 1,000 mL 1,000 mL, Rate: 100 ml/hr, Infuse over: 10 hr, Route: IV, Dosing Weight 54.545 k g, Total Volume: 1,000, Start date: 08/16/18 21:58:00 CHEMICAL APPLICATOR, Duration: 30 day, Sto p date: 09/15/18 21:57:00 CHEMICAL APPLICATOR, 1.54, m2 Start Date: 08/16/18 Stop Date: 08/19/18 Status: Discontinued Maxipime + sterile water 10 mL 1 gm, Route: IV, ONCE, Start date: 08/16/18 22:07:00 CHEMICAL APPLICATOR, Stop date: 08/16/18 22 :07:00 CHEMICAL APPLICATOR, ABX Indication: Other (specify in Comments) Notes: (Same As: Maxipime) MEDICATION WASTE Product Size: 1000 mgProduc t Wasted: ___ mg Start Date: 08/16/18 Stop Date: 08/17/18 Status: Completed meclizine 25 mg, 1 tab, Route: PO, Drug form: TAB, TID, Dosing Weight 61.364, kg, PRN Dizz iness, Start date: 08/17/18 0:58:00 CHEMICAL APPLICATOR, Duration: 30 day, Stop date: 09/16/18 0 :57:00 CHEMICAL APPLICATOR Notes: (Same as: Antivert) Start Date: 08/17/18 Stop Date: 08/21/18 Status: Discontinued melatonin 3 mg, 1 tab, Route: PO, Drug form: TAB, Bedtime, Dosing Weight 61.364, kg, Start date: 08/17/18 21:00:00 CHEMICAL APPLICATOR, Duration: 30 day, Stop date: 09/15/18 21:00:00 CHEMICAL APPLICATOR Notes: (Same as: Melatonin) Start Date: 08/17/18 Stop Date: 08/21/18 Status: Discontinued melatonin 3 mg, 1 tab, Route: PO, Drug form: TAB, Bedtime, Dosing Weight 61.364, kg, PRN S leep, Start date: 08/17/18 18:54:00 CHEMICAL APPLICATOR, Duration: 30 day, Stop date: 09/16/18 1 8:53:00 CHEMICAL APPLICATOR Notes: (Same as: Melatonin) Start Date: 08/17/18 Stop Date: 08/21/18 Status: Discontinued melatonin PO, Bedtime, 0 Refill(s) Start Date: 08/17/18 Status: Ordered Myrbetriq 25 mg oral tablet, extended release 25 mg, 1 tab, Route: PO, Drug form: ERTAB, Daily, Dosing Weight 61.364, kg, Star t date: 08/17/18 9:00:00 CHEMICAL APPLICATOR, Duration: 30 day, Stop date: 09/15/18 9:00:00 CHEMICAL APPLICATOR Start Date: 08/17/18 Stop Date: 08/21/18 Status: Discontinued Nitrostat 0.4 mg sublingual tablet 0.4 mg, 1 tab, Route: SL, Drug form: TAB, Q5Min, Dosing Weight 61.364, kg, PRN C hest Pain, Start date: 08/17/18 0:58:00 CHEMICAL APPLICATOR, Duration: 30 day, Stop date: 0:57:00 CHEMICAL APPLICATOR Notes: (Same as:Nitroquick, Nitrostat)"Do Not Crush" Sublingual tablet Start Date: 08/17/18 Stop Date: 08/21/18 Status: Discontinued omeprazole 40 mg, Route: PO, Daily, Dosing Weight 61.364, kg, Start date: 08/17/18 9:00:00 CHEMICAL APPLICATOR, Duration: 30 day, Stop date: 09/15/18 9:00:00 CHEMICAL APPLICATOR Start Date: 08/17/18 Stop Date: 08/17/18 Status: Deleted polyethylene glycol 3350 17 gm, 1 pkt, Route: PO, Drug form: PWDR, BID, Dosing Weight 61.364, kg, Start d ate: 08/17/18 9:00:00 CHEMICAL APPLICATOR, Duration: 30 day, Stop date: 09/15/18 17:00:00 CHEMICAL APPLICATOR Notes: Dissolve in 8 oz of water or juice.(Same as: Miralax) Start Date: 08/17/18 Stop Date: 08/21/18 Status: Discontinued predniSONE 5 mg, 2 tab, Route: PO, Drug form: TAB, Daily, Dosing Weight 61.364, kg, Start d ate: 08/17/18 9:00:00 CHEMICAL APPLICATOR, Duration: 30 day, Stop date: 09/15/18 9:00:00 CHEMICAL APPLICATOR Notes: Take with food. Start Date: 08/17/18 Stop Date: 08/21/18 Status: Discontinued Protonix 40 mg, 1 tab, Route: PO, Drug form: ECTAB, Before Dinner, Start date: 08/17/18 1 6:30:00 CHEMICAL APPLICATOR, Duration: 30 day, Stop date: 09/15/18 16:30:00 CHEMICAL APPLICATOR Notes: Tablet should not be chewed or crushed.(Same as: Protonix) Start Date: 08/17/18 Stop Date: 08/21/18 Status: Discontinued remove patch Route: TOP, Daily, Drug form: ERFILM, Start date: 08/17/18 9:00:00 CHEMICAL APPLICATOR, Duration : 30 day, Stop date: 09/15/18 9:00:00 CHEMICAL APPLICATOR Notes: Remove patch 12 hours after application each day. Start Date: 08/17/18 Stop Date: 08/21/18 Status: Discontinued Robitussin-DM 10 mL, Route: PO, Drug Form: LIQ, Dosing Weight 61.364, kg, Q6H, PRN as needed f or cough, Start date: 08/18/18 12:54:00 CHEMICAL APPLICATOR, Duration: 30 day, Stop date: 12:53:00 CHEMICAL APPLICATOR Notes: (dextromethorphan-guaifenesin 10-100/5 ml LIQ) (Same as: Robitussin-DM) Start Date: 08/18/18 Stop Date: 08/21/18 Status: Discontinued Saline Flush 0.9% 10 mL, Route: IVP, Drug Form: INJ, Dosing Weight 54.545, kg, PRN, PRN Line Flush , Start date: 08/16/18 18:09:00 CHEMICAL APPLICATOR, Duration: 30 day, Stop date: 09/15/18 18:08 :00 CHEMICAL APPLICATOR Notes: (Same as: BD Posiflush) Start Date: 08/16/18 Stop Date: 08/18/18 Status: Discontinued senna 8.6 mg oral tablet 17.2 mg, 2 tab, Route: PO, Drug Form: TAB, Dosing Weight 61.364, kg, Daily, Star t date: 08/17/18 9:00:00 CHEMICAL APPLICATOR, Duration: 30 day, Stop date: 09/15/18 9:00:00 CHEMICAL APPLICATOR Notes: (Same as: Senokot) Start Date: 08/17/18 Stop Date: 08/21/18 Status: Discontinued sertraline 50 mg, 1 tab, Route: PO, Drug form: TAB, Daily, Dosing Weight 61.364, kg, Start date: 08/17/18 9:00:00 CHEMICAL APPLICATOR, Duration: 30 day, Stop date: 09/15/18 9:00:00 CHEMICAL APPLICATOR Notes: (Same as: Zoloft) Start Date: 08/17/18 Stop Date: 08/21/18 Status: Discontinued Sodium Chloride 0.9% (Bolus) IV 1,000 mL, Infuse Over: 1 hr, Route: IV, ONCE, Priority: STAT, Dosing Weight 54.5 45 kg, Start date: 08/16/18 19:04:00 CHEMICAL APPLICATOR, Stop date: 08/16/18 19:04:00 CHEMICAL APPLICATOR Start Date: 08/16/18 Stop Date: 08/16/18 Status: Completed Tylenol 500 mg, 1 tab, Route: PO, Drug form: TAB, Q6H, Dosing Weight 61.364, kg, PRN Mandi n Score 1-5, Start date: 08/18/18 14:04:00 CHEMICAL APPLICATOR, Duration: 30 day, Stop date: 14:03:00 CHEMICAL APPLICATOR Notes: Max acetaminophen 4000 mg/day (4 gm/day). (Same as: Tylenol Extra Streng th) Start Date: 08/18/18 Stop Date: 08/21/18 Status: Discontinued Tylenol Extra Strength 500 mg oral tablet 1,000 mg=2 tab, PO, Bedtime, 0 Refill(s) Start Date: 08/17/18 Status: Ordered vancomycin + Sodium Chloride 0.9% IV 100 mL 500 mg, Route: IVPB, [id number], Start date: 08/18/18 0:30:00 CHEMICAL APPLICATOR, Duration: 9 day, Stop date: 08/26/18 2:00:00 CHEMICAL APPLICATOR, ABX Indication: ED - Suspected Sepsis Notes: TIME CRITICAL MEDICATION(Same As: Vancocin)For adult patients only: Round to nearest 250 mg per Medical Staff approval Start Date: 08/18/18 Stop Date: 08/19/18 Status: Discontinued vancomycin + Sodium Chloride 0.9% IV 250 mL 1,000 mg, Route: IVPB, [id number], Start date: 08/19/18 3:00:00 CHEMICAL APPLICATOR, Duration: 9 da y, Stop date: 08/27/18 3:00:00 CHEMICAL APPLICATOR, ABX Indication: Pneumonia Notes: TIME CRITICAL MEDICATION(Same As: Vancocin)Infusion rate< 1000 mg: infuse over 1 [id number] - 1500 mg: infuse over 1.5 [id number] - 2000 mg: infuse over 2 hours> 2001 mg: infuse over 2.5 hoursFor adult patients only: Round to nearest 250 mg per Medical Staff approval MEDICATION WASTE Product Size: 1000 mgProduct Wasted: ___ mg Start Date: 08/19/18 Stop Date: 08/21/18 Status: Discontinued vancomycin + Sodium Chloride 0.9% IV 250 mL 1,000 mg, Route: IVPB, ONCE, Start date: 08/16/18 22:30:00 CHEMICAL APPLICATOR, Stop date: 08/16 22:30:00 CHEMICAL APPLICATOR, ABX Indication: Other (specify in Comments) Notes: TIME CRITICAL MEDICATION(Same As: Vancocin)Infusion rate< 1000 mg: infuse over 1 [id number] - 1500 mg: infuse over 1.5 [id number] - 2000 mg: infuse over 2 hours> 2001 mg: infuse over 2.5 hoursFor adult patients only: Round to nearest 250 mg per Medical Staff approval MEDICATION WASTE Product Size: 1000 mgProduct Wasted: ___ mg Start Date: 08/16/18 Stop Date: 08/17/18 Status: Completed Vancomycin Pharmacy Dosing 1 ea, Route: IV, ONCALL, Dosing Weight 54.545, kg, Start date: 08/16/18 22:00:00 CHEMICAL APPLICATOR, Duration: 10 day, Stop date: 08/26/18 21:59:00 CHEMICAL APPLICATOR, ABX Indication: Other (specify in Comments) Start Date: 08/16/18 Stop Date: 08/16/18 Status: Deleted Results 1 2 3 Most recent to oldest [Reference Range]: 1.01 ng/mL *HI* (08/16/18 6:27 PM) Procalcitonin Lvl [0.00-0.10 ng/mL] 5.2 K/CMM (08/20/18 4:08 AM) 5.4 K/CMM (08/18/18 7:00 AM) 4.4 K/CMM (08/16/18 6:27 PM) Neutrophils # [1.5-8.1 K/CMM] 1.4 K/CMM (08/20/18 4:08 AM) 1.0 K/CMM (08/18/18 7:00 AM) 0.7 K/CMM *LOW* (08/16/18 6:27 PM) Lymphocytes # [1.0-5.5 K/CMM] 0.8 K/CMM (08/20/18 4:08 AM) 0.6 K/CMM (08/18/18 7:00 AM) 0.4 K/CMM (08/16/18 6:27 PM) Monocytes # [0.0-0.8 K/CMM] 0.6 K/CMM *HI* (08/20/18 4:08 AM) 0.4 K/CMM (08/18/18 7:00 AM) 0.2 K/CMM (08/16/18 6:27 PM) Eosinophils # [0.0-0.5 K/CMM] 0.1 K/CMM (08/20/18 4:08 AM) 0.1 K/CMM (08/18/18 7:00 AM) Basophils # [0.0-0.2 K/CMM] 0115 *NA* (08/19/18 1:55 AM) Vanco Tr TND 8.3 ug/ml *NA* (08/19/18 1:55 AM) Vanco Tr 0.5 mg/dL (08/17/18 2:44 AM) Bili Indirect [0.0-1.0 mg/dL] 63 mL/min/1.73m2 1 *NA* (08/21/18 3:52 AM) 73 mL/min/1.73m2 2 *NA* (08/20/18 4:08 AM) 58 mL/min/1.73m2 3 *NA* (08/18/18 7:00 AM) eGFR Negative (08/16/18 7:21 PM) Influ A [Negative] Negative (08/16/18 7:21 PM) Influ B [Negative] 0.6 *LOW* (08/21/18 3:52 AM) 0.6 *LOW* (08/18/18 7:00 AM) 0.7 (08/17/18 2:44 AM) A/G Ratio [0.7-1.6] 2.0 g/dL *LOW* (08/21/18 3:52 AM) 2.2 g/dL *LOW* (08/18/18 7:00 AM) 2.5 g/dL *LOW* (08/17/18 2:44 AM) Albumin Lvl [3.5-5.0 g/dL] 326 unit/L *HI* (08/21/18 3:52 AM) 447 unit/L *HI* (08/18/18 7:00 AM) 423 unit/L *HI* (08/17/18 2:44 AM) Alk Phos [39-136 unit/L] 67 unit/L *HI* (08/21/18 3:52 AM) 146 unit/L *HI* (08/18/18 7:00 AM) 179 unit/L *HI* (08/17/18 2:44 AM) ALT [0-65 unit/L] 15.2 mEq/L (08/21/18 3:52 AM) 14.3 mEq/L (08/20/18 4:08 AM) 15.4 mEq/L (08/18/18 7:00 AM) AGAP [10.0-20.0 mEq/L] 18 unit/L (08/21/18 3:52 AM) 70 unit/L *HI* (08/18/18 7:00 AM) 106 unit/L *HI* (08/17/18 2:44 AM) AST [0-37 unit/L] 19 (08/21/18 3:52 AM) 17 (08/18/18 7:00 AM) 17 (08/16/18 6:27 PM) B/C Ratio [6-25] 0.8 % (08/20/18 4:08 AM) 0.8 % (08/18/18 7:00 AM) 0.4 % (08/16/18 6:27 PM) Basophils [0.0-1.0 %] 16 mg/dL (08/21/18 3:52 AM) 14 mg/dL (08/20/18 4:08 AM) 15 mg/dL (08/18/18 7:00 AM) BUN [7-22 mg/dL] 7.8 mg/dL *LOW* (08/21/18 3:52 AM) 8.1 mg/dL *LOW* (08/20/18 4:08 AM) 8.2 mg/dL *LOW* (08/18/18 7:00 AM) Calcium Lvl [8.5-10.5 mg/dL] 94 unit/L (08/16/18 6:27 PM) Total CK [12-191 unit/L] 108 mEq/L (08/21/18 3:52 AM) 106 mEq/L (08/20/18 4:08 AM) 107 mEq/L (08/18/18 7:00 AM) Chloride Lvl [95-109 mEq/L] 21 mEq/L *LOW* (08/21/18 3:52 AM) 21 mEq/L *LOW* (08/20/18 4:08 AM) 20 mEq/L *LOW* (08/18/18 7:00 AM) CO2 [24-32 mEq/L] 0.84 mg/dL (08/21/18 3:52 AM) 0.74 mg/dL (08/20/18 4:08 AM) 0.90 mg/dL (08/18/18 7:00 AM) Creatinine Lvl [0.50-1.40 mg/dL] 0.3 mg/dL (08/17/18 2:44 AM) Bili Direct [0.0-0.3 mg/dL] 2.07 ug/mL FEU *NA* (08/17/18 2:44 AM) D-Dimer 7.8 % *HI* (08/20/18 4:08 AM) 4.9 % *HI* (08/18/18 7:00 AM) 4.3 % *HI* (08/16/18 6:27 PM) Eosinophils [0.0-4.0 %] 401 mg/dL (08/17/18 2:44 AM) Fibrinogen Lvl [230-510 mg/dL] 3.4 g/dL (08/21/18 3:52 AM) 3.4 g/dL (08/18/18 7:00 AM) 3.5 g/dL (08/17/18 2:44 AM) Globulin [2.7-4.2 g/dL] 86 mg/dL (08/21/18 3:52 AM) 87 mg/dL (08/20/18 4:08 AM) 94 mg/dL (08/18/18 7:00 AM) Glucose Lvl [70-99 mg/dL] Negative *NA* (08/18/18 7:00 AM) Negative *NA* (08/18/18 7:00 AM) Hep A IgM [Negative] Negative *NA* (08/18/18 7:00 AM) Negative *NA* (08/18/18 7:00 AM) Hep B Core IgM [Negative] Negative *NA* (08/18/18 7:00 AM) Negative *NA* (08/18/18 7:00 AM) Hep Bs Ag [Negative] 26.4 % *LOW* (08/20/18 4:08 AM) 27.3 % *LOW* (08/18/18 7:00 AM) 30.3 % *LOW* (08/16/18 6:27 PM) Hct [36.0-48.0 %] Negative *NA* (08/18/18 7:00 AM) Negative *NA* (08/18/18 7:00 AM) Hep C Ab 8.9 g/dL *LOW* (08/20/18 4:08 AM) 9.1 g/dL *LOW* (08/18/18 7:00 AM) 10.1 g/dL *LOW* (08/16/18 6:27 PM) Hgb [12.0-16.0 g/dL] 1.04 (08/17/18 2:44 AM) 1.01 (08/17/18 2:44 AM) 1.01 (08/16/18 6:27 PM) INR [0.85-1.17] 4.2 mEq/L (08/21/18 3:52 AM) 4.3 mEq/L (08/20/18 4:08 AM) 4.4 mEq/L (08/18/18 7:00 AM) Potassium Lvl [3.5-5.1 mEq/L] 0.7 mMol/L (08/16/18 11:57 PM) 1.0 mMol/L (08/16/18 6:27 PM) Lactic Acid Lvl [0.5-2.2 mMol/L] 152 unit/L (08/16/18 6:27 PM) Lipase Lvl [73-393 unit/L] 17.5 % *LOW* (08/20/18 4:08 AM) 13.9 % *LOW* (08/18/18 7:00 AM) 12.3 % *LOW* (08/16/18 6:27 PM) Lymphocytes [20.0-40.0 %] 31.0 pg (08/20/18 4:08 AM) 30.6 pg (08/18/18 7:00 AM) 30.2 pg (08/16/18 6:27 PM) MCH [27.0-31.0 pg] 33.8 g/dL (08/20/18 4:08 AM) 33.6 g/dL (08/18/18 7:00 AM) 33.3 g/dL (08/16/18 6:27 PM) MCHC [32.0-36.0 g/dL] 91.6 fL (08/20/18 4:08 AM) 91.0 fL (08/18/18 7:00 AM) 90.8 fL (08/16/18 6:27 PM) MCV [80.0-98.0 fL] 10.3 % (08/20/18 4:08 AM) 8.1 % (08/18/18 7:00 AM) 7.6 % (08/16/18 6:27 PM) Monocytes [2.0-12.0 %] 7.8 fL (08/20/18 4:08 AM) 7.9 fL (08/18/18 7:00 AM) 8.3 fL (08/16/18 6:27 PM) MPV [7.4-10.4 fL] 140 mEq/L (08/21/18 3:52 AM) 137 mEq/L (08/20/18 4:08 AM) 138 mEq/L (08/18/18 7:00 AM) Sodium Lvl [135-145 mEq/L] 235 K/CMM (08/20/18 4:08 AM) 159 K/CMM (08/18/18 7:00 AM) 131 K/CMM *LOW* (08/16/18 6:27 PM) Platelet [133-450 K/CMM] 63.6 % (08/20/18 4:08 AM) 72.3 % (08/18/18 7:00 AM) 75.4 % *HI* (08/16/18 6:27 PM) Segs [45.0-75.0 %] 5.4 g/dL *LOW* (08/21/18 3:52 AM) 5.6 g/dL *LOW* (08/18/18 7:00 AM) 6.0 g/dL *LOW* (08/17/18 2:44 AM) Total Protein [6.4-8.4 g/dL] 13.6 seconds (08/17/18 2:44 AM) 13.3 seconds (08/17/18 2:44 AM) 13.3 seconds (08/16/18 6:27 PM) PT [12.0-14.7 seconds] 38.9 seconds *HI* (08/17/18 2:44 AM) 39.2 seconds *HI* (08/17/18 2:44 AM) 81.2 seconds *HI* (08/16/18 6:27 PM) PTT [22.9-35.8 seconds] 2.88 M/CMM *LOW* (08/20/18 4:08 AM) 2.99 M/CMM *LOW* (08/18/18 7:00 AM) 3.34 M/CMM *LOW* (08/16/18 6:27 PM) RBC [4.20-5.40 M/CMM] 14.4 % (08/20/18 4:08 AM) 14.4 % (08/18/18 7:00 AM) 13.9 % (08/16/18 6:27 PM) RDW [11.5-14.5 %] 0.5 mg/dL (08/21/18 3:52 AM) 0.6 mg/dL (08/18/18 7:00 AM) 0.8 mg/dL (08/17/18 2:44 AM) Bili Total [0.2-1.3 mg/dL] <0.02 ng/mL (08/16/18 6:27 PM) Troponin-I [0.00-0.40 ng/mL] Occasional /HPF *NA* (08/17/18 12:30 AM) UA Bacteria [None Seen /HPF] Negative *NA* (08/17/18 12:30 AM) UA Bili [Negative] Negative (08/17/18 12:30 AM) UA Blood [Negative] Yellow *NA* (08/17/18 12:30 AM) UA Color [Yellow] Negative *NA* (08/17/18 12:30 AM) UA Glucose [Negative] Negative *NA* (08/17/18 12:30 AM) UA Ketones [Negative] Moderate *ABN* (08/17/18 12:30 AM) UA Leuk Est [Negative] Negative (08/17/18 12:30 AM) UA Nitrite [Negative] 6.0 (08/17/18 12:30 AM) UA pH [5.0-8.0] Negative (08/17/18 12:30 AM) UA Protein [Negative] 1 /HPF (08/17/18 12:30 AM) UA RBC [0-2 /HPF] 1.008 (08/17/18 12:30 AM) UA Spec Grav [<=1.030] Occasional /LPF *NA* (08/17/18 12:30 AM) UA Sq Epi [Few /LPF] Slight *ABN* (08/17/18 12:30 AM) UA Turbidity [Clear] <=1.0 mg/dL *NA* (08/17/18 12:30 AM) UA Urobilinogen [0.1-1.0 mg/dL] 26 /HPF *HI* (08/17/18 12:30 AM) UA WBC [0-5 /HPF] 8.2 K/CMM (08/20/18 4:08 AM) 7.5 K/CMM (08/18/18 7:00 AM) 5.8 K/CMM (08/16/18 6:27 PM) WBC [3.7-10.4 K/CMM] 1Result Comment: The eGFR is calculated using [...] tiplied by the estimated BMI. 2Result Comment: The eGFR is calculated using the [...] be mul tiplied by the estimated BMI. 3Result Comment: The eGFR is calculated using the [...] be mul tiplied by the estimated BMI. Microbiology Reports TEST: Culture: Urine STATUS: Auth (Verified) BODY SITE: SOURCE: Urine, Clean Catch COLLECTED DATE/TIME: 08/17/18 12:30 AM FINAL REPORT <10,000 CFU/mL Skin Megan Immunizations Given and Recorded Vaccine Date Status [...] 09/17/18 Assessment and Plan Extracted from: Title: Clinical Document Author: Herman Thayer MD Date: 08/21/18 Pulmonary/Critical Care Medicine progess note Herman Thayer MD SUBJECTIVE: Seen and examined. Patient is on room air. She is mentating well. Patient's son is at bedside. Events and records reviewed. OBJECTIVE: VitalsTmp(F)Tmp(C)[id number] 08/21 08:[id number]---[id number]------ 08/21 03:[id number]---[id number]------ 08/21 00:[id number]/67---[id number]------ 08/20 21:[id number]---[id number]------ 08/20 15:[id number]/68---[id number]------ 24 Hr Tmax: 98.3F (36.83c) at 08/20 21:12Vital Signs are the last 5 in the past 48 hours. 24 Hr Tmin: 97.3F (36.28c) at 08/21 03:36Weights are the last 5 in 60 days, plus initial. DateWt(kg)Wt(lb)Ht(cm)Ht(in)MethodBMIBSA 08/16 (initial) 54.55 120.00Estimated 23.51.52 52.40 60.00Stated (no point of care glucose results charted in last 24 hours) Most Recent Scores: 08/20/18Glasgow Coma Score15 08/20/18Braden Score17 08/20/18[place] Fall Score12 08/20/18Pain Intensity NRS (0-10)0 Lines, Tubes, and Drains: 08/17/2018 11:15 Peripheral Lines: Upper arm Right 20 gauge Over the needle catheter (no surgical procedures documented) Labs (Last four charted values) WBC 8.2(AUG 20)7.5(AUG 18)5.8(AUG 16) Hgb L 8.9(AUG 20)L 9.1(AUG 18)L 10.1(AUG 16) Hct L 26.4(AUG 20)L 27.3(AUG 18)L 30.3(AUG 16) Plt 235(AUG 20)159(AUG 18)L 131(AUG 16) Na 140(AUG 21)137(AUG 20)138(AUG 18)135(AUG 17) K 4.2(AUG 21)4.3(AUG 20)4.4(AUG 18)4.2(AUG 17) CO2 L 21(AUG 21)L 21(AUG 20)L 20(AUG 18)L 19(AUG 17) Cl 108(AUG 21)106(AUG 20)107(AUG 18)105(AUG 17) Cr 0.84(AUG 21)0.74(AUG 20)0.90(AUG 18)1.24(AUG 17) BUN 16(AUG 21)14(AUG 20)15(AUG 18)H 24(AUG 17) Glucose Random 86(AUG 21)87(AUG 20)94(AUG 18)82(AUG 17) Ca L 7.8(AUG 21)L 8.1(AUG 20)L 8.2(AUG 18)L 8.2(AUG 17) PT 13.3(AUG 17)13.6(AUG 17)13.3(AUG 16) INR 1.01(AUG 17)1.04(AUG 17)1.01(AUG 16) PTT H 39.2(AUG 17)H 38.9(AUG 17)H 81.2(AUG 16) Troponin <0.02(AUG 16) Total CK 94(AUG 16) RADIOLOGY: ASSESSMENT & EXAM: HEENT:normocephalic,atraumatic Skin:no rash Chest: symmetrical expansion, no wheezing,no rales, no crackles Heart: Regular rhythm, no murmurs Abdomen: Soft, nontender, bowel sounds present Ext: trace edema TREASURY REPRESENTATIVE: alert and oriented, no focal neurological defecits DIAGNOSES & PROBLEMS: Sepsis Pneumonia and/or bronchitis Acute kidney injury Macular degeneration Polymyalgia rheumatica deconditioning and debility PLAN & TREATMENT: Patient doing better. Okay to discharge on p.o. antibiotics. Spoke with the patient's son at length. All questions answered. Scheduled Meds (17): 08/17/18 aspirin (aspirin 81 mg tablet, enteric coated) 81 mg PO Daily 08/16/18 cefepime + Sodium Chloride 0.9% IV 100 mL 1 gm IVPB [id number] 25 ml/hr 08/17/18 docusate (docusate sodium 100 [...] 0.9% IV 250 mL 1,000 mg IVPB [id number] 250 ml/hr Unscheduled Meds: None Extracted from: Title: History and Physical Author: [...]
--- OUTSIDE RECORDS SUMMARY | 2019-05-23 06:43 | XMS REPORT | Summary of Care ---
Author Author [facility] Organization [facility] Neuro[facility] Address Unknown Phone Unavailable Care Team Providers Care Forklift Operator Name Role Phone Jesus Manuel Cruzqsood PCP Encounter HQ Encntr_alias(FIN) [phone] Date(s): 08/22/18 - 08/22/18 [facility] Neurosurgery [facility] [address] [facility] [address] [place] [phone]- Attending Physician: Jordi Pina MD Vital Signs No data available for [...]
--- OUTSIDE RECORDS SUMMARY | 2019-05-23 06:43 | XMS REPORT | Summary of Care ---
Author Author [facility] Organization [facility] Address Unknown Phone Unavailable Care Team Providers Care Typewriter Assembler Name Role Phone Alexey Cruz PCP Encounter HQ Cesarr_jakob(ANGELITO) [phone] Date(s): 04/02/19 - 04/02/19 [facility] [address] [place] [address]- [phone] Discharge Disposition: Home or Self Care Attending [...]
--- OUTSIDE RECORDS SUMMARY | 2019-05-23 06:43 | XMS REPORT | Summary of Care ---
Author Author [facility] Organization [facility] Address Unknown Phone Unavailable Care Team Providers Care Planishing Hammer Operator Name Role Phone Jesus Manuel Cruzqsood PCP Encounter HQ Encntr_alias(FIN) [phone] Date(s): 09/11/18 - 09/12/18 [facility] [address] [facility] [address] [place] [phone]- Vital Signs No data available for this [...]
--- OUTSIDE RECORDS SUMMARY | 2019-05-23 06:43 | XMS REPORT | Summary of Care ---
Author Author [facility] Organization [facility] Address Unknown Phone Unavailable Encounter HQ Karo_jakob(FIN) [phone] Date(s): 03/06/18 - 03/06/18 [facility] [address] [place] [address]- [phone] Discharge Disposition: Home or Self Care Attending Physician: Alexey Cruz MD Admitting Physician: Alexey Cruz MD Referring Physician: Alexey Cruz MD Vital Signs [...]
--- OUTSIDE RECORDS SUMMARY | 2019-05-23 06:44 | XMS REPORT | Summary of Care ---
Author Author [facility] Organization [facility] Address Unknown Phone Unavailable Encounter HQ Zia(FIN) [phone] Date(s): 11/29/16 - 11/29/16 [facility] [address] [place] [address]- Discharge Disposition: Home or Self Care Attending Physician: Alexey Cruz MD Referring Physician: Alexey [...] Procedures Procedure Date Related Diagnosis Body Site Cholecystectomy Colonoscopy Endoscopy Hysterectomy MRI Spiral CT scan Social History Social History Type Response Smoking Status Never smoker; Concerns about tobacco use in household: No; Exposure to Tobacco Smoke None; Cigarette Smoking Last 365 Days No; Reg Smoking Cessation Counseling No Assessment and Plan No data available for this section
--- OUTSIDE RECORDS SUMMARY | 2019-05-23 06:44 | XMS REPORT | Summary of Care ---
Author Author [facility] Organization [facility] Address Unknown Phone Unavailable Encounter HQ Karo_jakob(FIN) [phone] Date(s): 08/06/17 - 08/06/17 [facility] [address] [place] [address]- Discharge Disposition: Home or Self Care Attending [...]
--- OUTSIDE RECORDS SUMMARY | 2019-05-23 06:44 | XMS REPORT | Summary of Care ---
Author Author [facility] Organization [facility] Address Unknown Phone Unavailable Care Team Providers Care Hose Builder Name Role Phone Kathie Guzman PCP Encounter HQ Cesarr_jakob(FIN) [phone] Date(s): 07/29/18 - 07/30/18 [facility] [address] [facility] [address] [place] [phone]- Vital Signs No data available for this [...]
--- OUTSIDE RECORDS SUMMARY | 2019-05-23 06:44 | XMS REPORT | Summary of Care ---
Author Author [facility] Organization [facility] Address Unknown Phone Unavailable Care Team Providers Care Dairy Quality Assurance Officer Name Role Phone Kathie Guzman PCP Encounter [facility] Zia(FIN) [phone] Date(s): 07/22/18 - 07/25/18 [facility] [address] [facility] provided by [facility] [place] [address]- Encounter Diagnosis Multiple fractures of ribs, left side, initial encounter for closed fracture (Final) - 08/08/18 Unspecified fracture of second lumbar vertebra, initial encounter for closed fra cture (Final) - Unspecified fracture of third lumbar vertebra, initial encounter for closed frac ture (Final) - Unspecified fracture of fourth lumbar vertebra, initial encounter for closed fra cture (Final) - Coagulation defect, unspecified (Final) - Fall on same level, unspecified, initial encounter (Final) - Atherosclerotic heart disease of [place] coronary artery without angina pectoris (Final) - Chronic kidney disease, stage 3 (moderate) (Final) - Hypertensive chronic kidney disease with stage 1 through stage 4 chronic kidney disease, or unspecified chronic kidney disease (Final) - Hypothyroidism, unspecified (Final) - Anxiety disorder, unspecified (Final) - Personal history of urinary (tract) infections (Final) - Polymyalgia rheumatica (Final) - Hyperlipidemia, unspecified (Final) - Postmenopausal atrophic vaginitis (Final) - Orthostatic hypotension (Final) - Discharge Disposition: Group Home Facility Attending Physician: Annie Hood MD Admitting Physician: Elpidio Nunn DO Referring Physician: Shazia Ochoa MD Vital Signs 1 2 3 Most recent to oldest [Reference Range]: 152.4 cm (07/22/18 5:35 PM) Height 98.5 DegF (07/25/18 12:03 PM) 98.0 DegF (07/25/18 8:00 AM) 97.5 DegF (07/25/18 5:04 AM) Temperature Oral [96.4-99.1 DegF] 169/65 mmHg *HI* (07/25/18 3:00 PM) 173/66 mmHg *HI* (07/25/18 2:00 PM) 138/60 mmHg (07/25/18 1:00 PM) Blood Pressure [90-140/60-90 mmHg] 11 BRMIN *LOW* (07/25/18 3:00 PM) 13 BRMIN *LOW* (07/25/18 2:00 PM) 18 BRMIN (07/25/18 1:00 PM) Respiratory Rate [14-20 BRMIN] 66 bpm (07/23/18 12:59 AM) 61 bpm (07/22/18 11:11 PM) 58 bpm *LOW* (07/22/18 9:04 PM) Peripheral Pulse Rate [60-100 bpm] 59.091 kg (07/23/18 2:11 AM) 59.091 kg (07/22/18 5:35 PM) Weight 25.44 m2 (07/22/18 5:35 PM) Body Mass Index Problem List Condition Effective Dates Status Health Status Informant Escherichia Active coli(Confirmed)1 Heart Resolved abnormality(Confirme d) Hypertension(Confirm Active ed) Hypertension(Confirm Resolved ed) Nausea(Confirmed) 03/30/12 Active 1Problem added by Discern Expert. Allergies, Adverse Reactions, Alerts Substance Reaction Severity Status sulfa drugs Resolved NKDA Active Medications acetaminophen 1,000 mg, 2 tab, Route: PO, Drug form: TAB, TID, Dosing Weight 59.091, kg, PRN P ain Score 1-3, Start date: 07/23/18 18:05:00 CDT, Duration: 30 day, Stop date: 10/22/17 18:04:00 QUARRYMAN Notes: Max acetaminophen 4000 mg/day (4 gm/day). (Same as: Tylenol Extra Streng th) Start Date: 07/23/18 Stop Date: 07/25/18 Status: Discontinued acetaminophen 1,000 mg, 2 tab, Route: PO, Drug form: TAB, Q6H, Dosing Weight 59.091, kg, Start date: 07/24/18 6:00:00 CDT, Duration: 30 day, Stop date: 08/23/18 0:00:00 QUARRYMAN Notes: Max acetaminophen 4000 mg/day (4 gm/day). (Same as: Tylenol Extra Streng th) Start Date: 07/24/18 Stop Date: 07/23/18 Status: Canceled acetaminophen 1,000 mg, 100 mL, Route: IVPB, Drug form: INJ, Q6H, Dosing Weight 59.091, kg, St art date: 07/23/18 6:00:00 CDT, Duration: 24 hr, Stop date: 07/24/18 0:00:00 CDT Notes: Infuse over 15 minutesDo not exceed 4gm/day of acetaminophen MEDICAT ION WASTE Product Size: 1000 mgProduct Wasted: ___ mg Start Date: 07/23/18 Stop Date: 07/23/18 Status: Discontinued aspirin 81 mg tablet, enteric coated 81 mg, 1 tab, Route: PO, Drug form: ECTAB, Daily, Dosing Weight 59.091, kg, Star t date: 07/23/18 9:00:00 CDT, Duration: 30 day, Stop date: 08/21/18 9:00:00 QUARRYMAN Notes: Do not crush or chew.(Same As: Ecotrin) Start Date: 07/23/18 Stop Date: 07/25/18 Status: Discontinued aspirin 81 mg tablet, enteric coated 81 mg=1 tab, PO, Daily, # 90 tab, 3 Refill(s) Start Date: 07/23/18 Status: Ordered bisacodyl 10 mg, 2 tab, Route: PO, Drug form: ECTAB, Q24H, Dosing Weight 59.091, kg, PRN C onstipation, Start date: 07/23/18 0:10:00 CDT, Duration: 30 day, Stop date: 07/26 06/11 0:09:00 QUARRYMAN Notes: (Same As: Dulcolax, Correctol) (Do Not Crush) "Do Not Crush" Start Date: 07/23/18 Stop Date: 07/25/18 Status: Discontinued bisacodyl 5 mg oral enteric coated tablet 10 mg=2 tab, PO, Q24H, PRN Constipation, 0 Refill(s) Start Date: 07/25/18 Stop Date: 08/17/18 Status: Discontinued Cipro 250 mg oral tablet 250 mg=1 tab, PO, Q12H, # 14 tab, 0 Refill(s) Start Date: 07/23/18 Stop Date: 07/25/18 Status: Discontinued clonazePAM 0.125 mg oral tablet, disintegrating 0.125 mg=1 tab, PO, Bedtime, # 90 tab, 0 Refill(s) Start Date: 07/23/18 Stop Date: 07/25/18 Status: Discontinued Cozaar 50 mg, 1 tab, Route: PO, Drug form: TAB, Daily, Start date: 07/23/18 9:00:00 CDT , Duration: 30 day, Stop date: 08/21/18 9:00:00 QUARRYMAN Notes: (Same as: Cozaar) Start Date: 07/23/18 Stop Date: 07/25/18 Status: Discontinued docusate 100 mg, 1 cap, Route: PO, Drug form: CAP, BID, Dosing Weight 59.091, kg, Start d ate: 07/23/18 17:00:00 CDT, Duration: 30 day, Stop date: 08/22/18 9:00:00 QUARRYMAN Notes: (Same as: Colace) (Do Not Crush) Start Date: 07/23/18 Stop Date: 07/25/18 Status: Discontinued docusate 100 mg, 1 cap, Route: PO, Drug form: CAP, BID, Dosing Weight 59.091, kg, PRN Con stipation, Start date: 07/23/18 0:10:00 CDT, Duration: 30 day, Stop date: 0:09:00 QUARRYMAN Notes: (Same as: Colace) (Do Not Crush) Start Date: 07/23/18 Stop Date: 07/23/18 Status: Discontinued docusate sodium 100 mg oral capsule 100 mg=1 cap, PO, BID, 0 Refill(s) Start Date: 07/25/18 Stop Date: 08/17/18 Status: Discontinued enoxaparin 30 mg, 0.3 mL, Route: SUB-Q, Drug form: INJ, [id number], Dosing Weight 59.091, kg, Start date: 07/23/18 1:00:00 CDT, Duration: 30 day, Stop date: 08/21/18 1:00:00 QUARRYMAN Notes: (Same as: Lovenox) Start Date: 07/23/18 Stop Date: 07/23/18 Status: Canceled gabapentin 300 mg, 1 cap, Route: PO, Drug form: CAP, BID, Dosing Weight 59.091, kg, Start d ate: 07/25/18 9:00:00 CDT, Duration: 30 day, Stop date: 08/23/18 17:00:00 QUARRYMAN Notes: (Same as: Neurontin) Start Date: 07/25/18 Stop Date: 07/23/18 Status: Canceled gabapentin 300 mg oral capsule 300 mg=1 cap, PO, BID, # 90 cap, 1 Refill(s) Start Date: 07/23/18 Stop Date: 07/25/18 Status: Discontinued heparin 5,000 unit=1 mL, SUB-Q, Q8H-01, 0 Refill(s) Start Date: 07/25/18 Stop Date: 08/21/18 Status: Discontinued heparin 5,000 unit, 1 mL, Route: SUB-Q, Drug form: INJ, Q8H-01, Dosing Weight 59.091, kg , Priority: STAT, Start date: 07/23/18 0:57:00 CDT, Duration: 30 day, Stop date: 08/21/18 17:00:00 QUARRYMAN Notes: porcine heparin Start Date: 07/23/18 Stop Date: 07/25/18 Status: Discontinued hydrALAZINE 20 mg, 1 mL, Route: IVP, Drug form: INJ, ONCE, Dosing Weight 59.091, kg, Start d ate: 07/24/18 1:45:00 CDT, Stop date: 07/24/18 1:45:00 CDT Notes: (Same as: Apresoline)Push over 5 minutes Start Date: 07/24/18 Stop Date: 07/24/18 Status: Completed hydrALAZINE 10 mg, 1 tab, Route: PO, Drug form: TAB, Q6H, Dosing Weight 59.091, kg, Start da te: 07/24/18 6:00:00 CDT, Duration: 30 day, Stop date: 08/23/18 2:00:00 QUARRYMAN Notes: (Same as: Apresoline) May interfere w/enteral feedings.Take With Food Start Date: 07/24/18 Stop Date: 07/25/18 Status: Discontinued hydrALAZINE 10 mg, 0.5 mL, Route: IVP, Drug form: INJ, Q4H, Dosing Weight 59.091, kg, PRN Hy pertension, Start date: 07/25/18 6:00:00 CDT, Duration: 30 day, Stop date: 08/24 5:59:00 QUARRYMAN Notes: (Same as: Apresoline)Push over 5 minutes Start Date: 07/25/18 Stop Date: 07/25/18 Status: Discontinued hydrALAZINE 10 mg oral tablet 10 mg=1 tab, PO, Q6H, 0 Refill(s) Start Date: 07/25/18 Stop Date: 09/18/18 Status: Discontinued hydrochlorothiazide-losartan 12.5 mg-50 mg oral tablet 1 tab, Route: PO, Drug Form: TAB, Dosing Weight 59.091, kg, Daily, Start date: 9:00:00 CDT, Duration: 30 day, Stop date: 08/21/18 9:00:00 QUARRYMAN Start Date: 07/23/18 Stop Date: 07/23/18 Status: Discontinued Imdur 30 mg, 1 tab, Route: PO, Drug form: ERTAB, QAM, Dosing Weight 59.091, kg, Start date: 07/23/18 9:00:00 CDT, Duration: 30 day, Stop date: 08/21/18 9:00:00 QUARRYMAN Notes: (Same as:Imdur)"Do Not Crush" Take on empty stomach/ full glass of water . Do not crush Start Date: 07/23/18 Stop Date: 07/23/18 Status: Discontinued Isolyte S PH-7.4 (Bolus) IV 250 mL, Route: IV, ONCE, Dosing Weight 59.091 kg, Start date: 07/22/18 21:36:00 CDT, Stop date: 07/22/18 21:36:00 CDT Start Date: 07/22/18 Stop Date: 07/22/18 Status: Completed ketOROLAC 30 mg/mL injectable solution 30 mg, 1 mL, Route: IM, Drug form: INJ, ONCE, Dosing Weight 59.091, kg, Priority : STAT, Start date: 07/23/18 0:11:00 CDT, Stop date: 07/23/18 0:11:00 CDT Notes: (Same as:Toradol) IV bolus must be given >15 seconds. Give IM administration slowly and deeply into the muscle.Not for use > 4 days MEDICATION WASTE Product Size: 30 mgProduct Wasted: ___ mg Start Date: 07/23/18 Stop Date: 07/23/18 Status: Discontinued levothyroxine 25 microgram, 1 tab, Route: PO, Drug form: TAB, Q630AM, Dosing Weight 59.091, kg , Start date: 07/23/18 6:30:00 CDT, Duration: 30 day, Stop date: 08/21/18 6:30:0 0 QUARRYMAN Notes: Take 1 hour before or 2 hours after meal; Enteral feeds may interefere wi th the absorption of this medication. (Same as:Levothroid) Start Date: 07/23/18 Stop Date: 07/25/18 Status: Discontinued levothyroxine 25 mcg (0.025 mg) oral tablet 25 microgram=1 tab, PO, Daily, # 90 tab, 0 Refill(s) Start Date: 07/23/18 Status: Ordered Lidoderm 5% topical film (patch) 1 patch, TOP, Q24H, 0 Refill(s) Start Date: 07/25/18 Status: Ordered Lidoderm 5% topical film (patch) 1 patch, Route: TOP, Q24H, Drug form: FILM, Start date: 07/23/18 9:00:00 CDT, Du ration: 30 day, Stop date: 08/21/18 9:00:00 QUARRYMAN Notes: Apply only once for up to 12 hours in [id number] period (12 hours on and 12 hours off).(Same as: Lidoderm)"Remove old patch before application of new patch" Start Date: 07/23/18 Stop Date: 07/25/18 Status: Discontinued losartan 50 mg oral tablet 50 mg=1 tab, PO, Daily, 0 Refill(s) Start Date: 07/25/18 Stop Date: 09/18/18 Status: Discontinued Lyrica 50 mg, 1 cap, Route: PO, Drug form: CAP, Q8H, Start date: 07/23/18 8:00:00 CDT, Stop date: 07/24/18 21:00:00 CDT Notes: Same as Lyrica Start Date: 07/23/18 Stop Date: 07/24/18 Status: Completed meclizine 25 mg, 1 tab, Route: PO, Drug form: TAB, ONCE, Dosing Weight 59.091, kg, PRN Diz ziness, Start date: 07/23/18 0:36:00 CDT Notes: (Same as: Antivert) Start Date: 07/23/18 Stop Date: 07/25/18 Status: Discontinued meclizine 25 mg oral tablet 25 mg=1 tab, PO, ONCE, PRN for dizziness, # 60 tab, 0 Refill(s) Start Date: 07/23/18 Stop Date: 08/21/18 Status: Discontinued metoprolol extended release 50 mg, 1 tab, Route: PO, Drug form: ERTAB, Daily, Start date: 07/23/18 9:00:00 C DT, Duration: 30 day, Stop date: 08/21/18 9:00:00 QUARRYMAN Notes: (Same as: Toprol XL) May split tab, but do not crush. Start Date: 07/23/18 Stop Date: 07/23/18 Status: Discontinued Microzide 12.5 mg, 1 cap, Route: PO, Drug form: CAP, Daily, Start date: 07/23/18 9:00:00 C DT, Duration: 30 day, Stop date: 08/21/18 9:00:00 QUARRYMAN Notes: (Same as: Microzide) With food. Start Date: 07/23/18 Stop Date: 07/23/18 Status: Discontinued MiraLax 17 gm, 1 pkt, Route: PO, Drug form: PWDR, BID, Dosing Weight 59.091, kg, Start d ate: 07/23/18 17:00:00 CDT, Duration: 30 day, Stop date: 08/22/18 9:00:00 QUARRYMAN Notes: Dissolve in 8 oz of water or juice.(Same as: Miralax) Start Date: 07/23/18 Stop Date: 07/25/18 Status: Discontinued morphine Sulfate 4 mg, 1 mL, Route: IVP, Drug form: SOLN, ONCE, Dosing Weight 59.091, kg, Priorit y: STAT, Start date: 07/22/18 23:23:00 CDT, Stop date: 07/22/18 23:23:00 CDT Notes: (Same as:MORPhine Sulfate) Start Date: 07/22/18 Stop Date: 07/23/18 Status: Completed Myrbetriq 25 mg oral tablet, extended release 25 mg, 1 tab, Route: PO, Drug form: ERTAB, Daily, Dosing Weight 59.091, kg, Star t date: 07/23/18 9:00:00 CDT, Duration: 30 day, Stop date: 08/21/18 9:00:00 QUARRYMAN Notes: (Same as: Myrbetriq ER) Non-Formulary Start Date: 07/23/18 Stop Date: 07/23/18 Status: Discontinued Myrbetriq 25 mg oral tablet, extended release 25 mg=1 tab, PO, Daily, # 30 tab, 5 Refill(s) Start Date: 07/23/18 Status: Ordered Myrbetriq 25 mg oral tablet, extended release 25 mg, 1 tab, Route: PO, Drug form: ERTAB, Daily, Dosing Weight 59.091, kg, Star t date: 07/23/18 10:45:00 CDT, Duration: 30 day, Stop date: 08/22/18 9:00:00 QUARRYMAN Notes: (Same as: Myrbetriq ER) Non-Formulary Start Date: 07/23/18 Stop Date: 07/25/18 Status: Discontinued Nitrostat 0.4 mg sublingual tablet 0.4 mg=1 tab, SL, Q5Min, PRN Chest Pain, # 100 tab, 0 Refill(s) Start Date: 07/23/18 Status: Ordered Nitrostat 0.4 mg sublingual tablet 0.4 mg, 1 tab, Route: SL, Drug form: TAB, Q5Min, Dosing Weight 59.091, kg, PRN C hest Pain, Start date: 07/23/18 0:36:00 CDT, Duration: 30 day, Stop date: 23:35:00 QUARRYMAN Notes: (Same as:Nitroquick, Nitrostat)"Do Not Crush" Sublingual tablet Start Date: 07/23/18 Stop Date: 07/25/18 Status: Discontinued omeprazole 40 mg, Route: PO, Daily, Dosing Weight 59.091, kg, Start date: 07/23/18 9:00:00 CDT, Duration: 30 day, Stop date: 08/21/18 9:00:00 QUARRYMAN Start Date: 07/23/18 Stop Date: 07/23/18 Status: Discontinued omeprazole 40 mg, PO, Daily, 0 Refill(s) Start Date: 07/23/18 Status: Ordered ondansetron 4 mg, 2 mL, Route: IVP, Drug form: INJ, Q24H, Dosing Weight 59.091, kg, PRN Naus ea & Vomiting, Start date: 07/23/18 0:10:00 CDT, Duration: 30 day, Stop date: 08/22/18 0:09:00 QUARRYMAN Notes: (Same as: Debra) MEDICATION WASTE Product Size: 4 mgProduct Was laurent: ___ mg Start Date: 07/23/18 Stop Date: 07/25/18 Status: Discontinued oxyCODONE 5 mg immediate release 5 mg, 1 tab, Route: PO, Drug form: TAB, Q4H, Dosing Weight 59.091, kg, PRN Pain Score 7-10, Start date: 07/23/18 18:05:00 CDT, Duration: 30 day, Stop date: 07/26 06/11 18:04:00 QUARRYMAN Notes: (Same as: Roxicodone) Start Date: 07/23/18 Stop Date: 07/25/18 Status: Discontinued oxyCODONE 5 mg immediate release 10 mg, 2 tab, Route: PO, Drug form: TAB, Q4H, Dosing Weight 59.091, kg, PRN Pain Score 7-10, Start date: 07/23/18 1:13:00 CDT, Duration: 30 day, Stop date: 07/26 06/11 1:12:00 QUARRYMAN Notes: (Same as: Roxicodone) Start Date: 07/23/18 Stop Date: 07/23/18 Status: Discontinued oxyCODONE 5 mg immediate release 5 mg, 1 tab, Route: PO, Drug form: TAB, Q4H, Dosing Weight 59.091, kg, PRN Pain Score 4-6, Start date: 07/23/18 1:13:00 CDT, Duration: 30 day, Stop date: 1:12:00 QUARRYMAN Notes: (Same as: Roxicodone) Start Date: 07/23/18 Stop Date: 07/25/18 Status: Discontinued polyethylene glycol 3350 oral powder for reconstitution PO, BID, 0 Refill(s) Start Date: 07/25/18 Status: Ordered predniSONE 5 mg, 1 tab, Route: PO, Drug form: TAB, Daily, Dosing Weight 59.091, kg, Start d ate: 07/23/18 9:00:00 CDT, Duration: 30 day, Stop date: 08/21/18 9:00:00 QUARRYMAN Notes: Take with food. Start Date: 07/23/18 Stop Date: 07/25/18 Status: Discontinued predniSONE 5 mg oral tablet 5 mg=1 tab, PO, Daily, Give with food., # 14 tab, 0 Refill(s) Start Date: 07/23/18 Stop Date: 08/05/18 Status: Ordered pregabalin 100 mg, Route: PO, Q8H, Dosing Weight 59.091, kg, Priority: NOW, Start date: 1:12:00 CDT, Duration: 48 hr, Stop date: 07/25/18 0:00:00 CDT Start Date: 07/23/18 Stop Date: 07/23/18 Status: Discontinued Protonix 40 mg, 1 tab, Route: PO, Drug form: ECTAB, Before Dinner, Start date: 07/23/18 1 6:30:00 CDT, Duration: 30 day, Stop date: 08/21/18 16:30:00 QUARRYMAN Notes: Tablet should not be chewed or crushed.(Same as: Protonix) Start Date: 07/23/18 Stop Date: 07/25/18 Status: Discontinued remove patch 1 patch, Route: TOP, Bedtime, Drug form: ERFILM, Start date: 07/23/18 21:00:00 C DT, Duration: 30 day, Stop date: 08/21/18 21:00:00 QUARRYMAN Notes: Remove patch 12 hours after application each day. Start Date: 07/23/18 Stop Date: 07/25/18 Status: Discontinued Saline Flush 0.9% 10 ml, Route: IVP, Drug Form: INJ, Dosing Weight 59.091, kg, PRN, PRN Line Flush , Start date: 07/23/18 0:10:00 CDT, Duration: 30 day, Stop date: 08/21/18 23:09: 00 QUARRYMAN Notes: Same as: BD Posiflush Sterile Start Date: 07/23/18 Stop Date: 07/25/18 Status: Discontinued Saline Flush 0.9% 10 ml, Route: IVP, Drug Form: INJ, Dosing Weight 59.091, kg, Q12H, Start date: 1 9:00:00 CDT, Duration: 30 day, Stop date: 08/21/18 21:00:00 QUARRYMAN Notes: Same as: BD Posiflush Sterile Start Date: 07/23/18 Stop Date: 07/25/18 Status: Discontinued senna 8.6 mg oral tablet 17.2 mg=2 tab, PO, Daily, 0 Refill(s) Start Date: 07/25/18 Status: Ordered senna 8.6 mg oral tablet 17.2 mg, 2 tab, Route: PO, Drug Form: TAB, Dosing Weight 59.091, kg, Daily, Star t date: 07/24/18 9:00:00 CDT, Duration: 30 day, Stop date: 08/22/18 9:00:00 QUARRYMAN Notes: (Same as: Senokot) Start Date: 07/24/18 Stop Date: 07/25/18 Status: Discontinued sertraline 50 mg, 1 tab, Route: PO, Drug form: TAB, Daily, Dosing Weight 59.091, kg, Start date: 07/23/18 9:00:00 CDT, Duration: 30 day, Stop date: 08/21/18 9:00:00 QUARRYMAN Notes: (Same as: Zoloft) Start Date: 07/23/18 Stop Date: 07/25/18 Status: Discontinued tramadol 100 mg, Route: PO, Drug form: TAB, Q6H, Dosing Weight 59.091, kg, Priority: NOW, Start date: 07/23/18 1:12:00 CDT, Duration: 30 day, Stop date: 08/22/18 0:00:00 QUARRYMAN Start Date: 07/23/18 Stop Date: 07/23/18 Status: Discontinued tramadol 50 mg oral tablet 50 mg, 1 tab, Route: PO, Drug form: TAB, Q6H, Start date: 07/23/18 6:00:00 CDT, Duration: 30 day, Stop date: 08/22/18 0:00:00 QUARRYMAN Notes: Not to exceed 400mg/day. (Same As: Ultram) Start Date: 07/23/18 Stop Date: 07/23/18 Status: Discontinued Visipaque 320mg/ml 75 mL, Route: IVP, Drug Form: SOLN, Dosing Weight 59.091, kg, ONCALL, STAT, Star t date: 07/22/18 22:40:00 CDT, Duration: 1 doses or times, Dose=2.2ml/kg, Max d ald=[id number] -- "To be infused by Radiology Staff ONLY" Notes: (Same as: Visipaque).WASTE: F/P - Black; E - Municipal Trash Bin Start Date: 07/22/18 Stop Date: 07/22/18 Status: Completed Zofran 4 mg, 2 mL, Route: IVP, Drug form: INJ, ONCE, Dosing Weight 59.091, kg, Priority : STAT, Start date: 07/22/18 23:23:00 CDT, Stop date: 07/22/18 23:23:00 CDT Notes: (Same as: Zofran) MEDICATION WASTE Product Size: 4 mgProduct Was laurent: ___ mg Start Date: 07/22/18 Stop Date: 07/23/18 Status: Completed Results Most recent to 1 oldest [Reference Range]: Neutrophils # 4.4 K/CMM [1.5-8.1 K/CMM] (07/23/18 3:22 AM) Lymphocytes # 1.5 K/CMM [1.0-5.5 K/CMM] (07/23/18 3:22 AM) Monocytes # [0.0-0.8 0.6 K/CMM K/CMM] (07/23/18 3:22 AM) Eosinophils # 0.1 K/CMM [0.0-0.5 K/CMM] (07/23/18 3:22 AM) G-value Rapid 8.3 K d/sc [5.0-11.6 K d/sc] (07/22/18 6:33 PM) K-time Rapid 1.1 minutes [0.6-2.3 minutes] (07/22/18 6:33 PM) Max Amplitude Rapid 63 mm [52-71 mm] (07/22/18 6:33 PM) R-time Rapid 0.8 minutes [0.4-0.7 minutes] *HI* (07/22/18:33 PM) Angle Rapid [64-80 77 degrees degrees] (07/22/18 6:33 PM) eGFR 43 mL/min/1.73m2 1 *NA* (07/23/18 AM) AGAP [10.0-20.0 14.3 mEq/L mEq/L] (07/23/18: AM) Basophils [0.0-1.0 0.7 % %] (07/23/18: AM) BUN [7-22 mg/dL] 18 mg/dL (07/23/18 AM) Calcium Lvl 8.0 mg/dL [8.5-10.5 mg/dL] *LOW* (07/23/18: AM) Chloride Lvl [95-109 98 mEq/L mEq/L] (07/23/18: AM) CO2 [24-32 mEq/L] 28 mEq/L (07/23/18: AM) Creatinine Lvl 1.15 mg/dL [0.50-1.40 mg/dL] (07/23/18: AM) Eosinophils [0.0-4.0 2.1 % %] (07/23/18: AM) Glucose Lvl [70-99 135 mg/dL mg/dL] *HI* (07/23/18 AM) Hct [36.0-48.0 %] 32.9 % *LOW* (07/23/18 AM) Hgb [12.0-16.0 g/dL] 10.9 g/dL *LOW* (07/23/18: AM) Potassium Lvl 4.3 mEq/L [3.5-5.1 mEq/L] (07/23/18 3:22 AM) Lymphocytes 22.7 % [20.0-40.0 %] (07/23/18 3:22 AM) MCH [27.0-31.0 pg] 30.5 pg (07/23/18 3:22 AM) MCHC [32.0-36.0 33.1 g/dL g/dL] (07/23/18 3:22 AM) MCV [80.0-98.0 fL] 92.2 fL (07/23/18 3:22 AM) Monocytes [2.0-12.0 9.4 % %] (07/23/18 3:22 AM) MPV [7.4-10.4 fL] 7.8 fL (07/23/18 3:22 AM) Sodium Lvl [135-145 136 mEq/L mEq/L] (07/23/18 3:22 AM) Platelet [133-450 220 K/CMM K/CMM] (07/23/18 3:22 AM) Segs [45.0-75.0 %] 65.1 % (07/23/18 3:22 AM) RBC [4.20-5.40 3.57 M/CMM M/CMM] *LOW* (07/23/18 3:22 AM) RDW [11.5-14.5 %] 13.4 % (07/23/18 3:22 AM) Troponin-I <0.02 ng/mL [0.00-0.40 ng/mL] (07/23/18 12:09 AM) WBC [3.7-10.4 K/CMM] 6.7 K/CMM (07/23/18 3:22 AM) ACT (TEG) Rapid 121 seconds [86-118 seconds] *HI* (07/22/18 6:33 PM) Estimated % Lysis 3.5 % 2 Rapid [0.0-7.5 %] (07/22/18 6:33 PM) Split Point Rapid 0.7 minutes *NA* (07/22/18 6:33 PM) Lactic Acid WB 1.2 mmol/L [0.5-2.2 mmol/L] (07/22/18 6:33 PM) 1Result Comment: The eGFR is calculated [...] tiplied by the estimated BMI. 2Result Comment: "Significant Findings called to Darling Marrero at 07/22/2018 19:40 by ci. Read Back OK." Immunizations Given and Recorded Vaccine Date Status [...] 09/17/18 Assessment and Plan Extracted from: Title: Hospitalist progress Note Author: Annie Hood MD [...] weekswithAP and lateral x-rays with Dr. Olson./ [phone] for appointment 3.Dizziness(R42) -Possible presyncope. DDx: ddx [...] cautioned her onmisuse of abx - outpatient respiratory practitioner follow up for exam and consideration of topical estrogens 9.Polymyalgia rheumatica(M35.3) -Continue prednisone, lyrica * Setting of presyncope, continue telemetry today Heparin PT/OT >> SNF, pending. Addendum by Pulmonary nodules: indeterminate, Areas of bronchiectasis per CT. Respi stable clinically [place], and afebrile with no consistent cough. Outpt f/u with PCP Annie Orellana MD on 07/24/2018 17:10 CDT Extracted from: Title: History and Physical Author: Alexis Aragon MD [...] cautioned her onmisuse of abx advised outpatient respiratory practitioner follow up for exam and consideration of topical estrogens 9.Polymyalgia rheumatica(M35.3) prednisone 5 lyrica zoloft piedad
--- OUTSIDE RECORDS SUMMARY | 2019-05-23 06:44 | XMS REPORT | Summary of Care ---
Author Author [facility] Organization [facility] Address Unknown Phone Unavailable Care Team Providers Care Adult Education Professional Name Role Phone Alexey Cruz PCP Encounter [facility]akob([place]) [phone] Date(s): 12/22/15 - 12/22/15 [facility] [id number] [place] [address]- Discharge Disposition: Home Attending Physician: Magno Delong MD Referring Physician: Magno Delong MD Vital Signs No data available for this section Problem List Condition Effective Dates Status Health Status Informant Escherichia Active coli(Confirmed)1 Hypertension(Confirm Active ed) Nausea(Confirmed) 03/30/12 Active 1Problem added by Discern Expert. Allergies, Adverse Reactions, Alerts Substance Reaction Severity Status sulfa drugs Active Medications No data available for this section Results No data available for this section Immunizations Vaccine Date Refusal Reason pneumococcal 23-valent vaccine 09/07/09 Procedures No data available for this section Social History Social History Type Response Assessment and Plan No data available for this section
--- OUTSIDE RECORDS SUMMARY | 2019-05-23 06:44 | XMS REPORT | Summary of Care ---
Author Author [facility] Organization [facility] Address Unknown Phone Unavailable Care Team Providers Care Currency Counter Name Role Phone Kathie Guzman PCP Encounter [facility]) [id number] Date(s): 07/22/18 - 07/22/18 [facility] [address] [place] [address]- [phone] Encounter Diagnosis Multiple fractures of ribs, left side, initial encounter for closed fracture (Final) - 07/25/18 Unspecified fracture of second lumbar vertebra, initial encounter for closed fra cture (Final) - Unspecified fracture of third lumbar vertebra, initial encounter for closed frac ture (Final) - Unspecified fracture of fourth lumbar vertebra, initial encounter for closed fra cture (Final) - Fall on same level, unspecified, initial encounter (Final) - Pain in left hip (Final) - Other chest pain (Final) - Acute pain due to trauma (Final) - Syncope and collapse (Final) - Essential (primary) hypertension (Final) - Abnormal electrocardiogram [ECG] [EKG] (Final) - Pain in thoracic spine (Final) - Cervicalgia (Final) - Other chronic pain (Final) - Functional urinary incontinence (Final) - Dysuria (Final) - Dizziness and giddiness (Final) - Unspecified kyphosis, site unspecified (Final) - Acquired absence of both cervix and uterus (Final) - Allergy status to sulfonamides status (Final) - Discharge Disposition: Acute Care Attending Physician: Shazia Ochoa MD Vital Signs 1 2 3 Most recent to oldest [Reference Range]: 152.4 cm (07/22/18 11:32 AM) Height 98.2 DegF (07/22/18 2:41 PM) 98.1 DegF (07/22/18 1:49 PM) 98.2 DegF (07/22/18 11:54 AM) Temperature Oral [96.4-99.1 DegF] 196/66 mmHg *HI* (07/22/18 2:41 PM) 197/60 mmHg *HI* (07/22/18 1:49 PM) 187/55 mmHg *HI* (07/22/18 11:54 AM) Blood Pressure [90-140/60-90 mmHg] 17 BRMIN (07/22/18 2:41 PM) 15 BRMIN (07/22/18 1:49 PM) 17 BRMIN (07/22/18 11:54 AM) Respiratory Rate [14-20 BRMIN] 59 bpm *LOW* (07/22/18 11:54 AM) 68 bpm (07/22/18 11:32 AM) Peripheral Pulse Rate [60-100 bpm] 59.091 kg (07/22/18 11:32 AM) Weight 25.44 m2 (07/22/18 11:32 AM) Body Mass Index Problem List Condition Effective Dates Status Health Status Informant Escherichia Active coli(Confirmed)1 Heart Resolved abnormality(Confirme d) Hypertension(Confirm Active ed) Hypertension(Confirm Resolved ed) Nausea(Confirmed) 03/30/12 Active 1Problem added by Discern Expert. Allergies, Adverse Reactions, Alerts Substance Reaction Severity Status sulfa drugs Resolved NKDA Active Medications acetaminophen 975 mg, 3 tab, Route: PO, Drug form: TAB, ONCE, Dosing Weight 59.091, kg, Priori ty: STAT, Start date: 07/22/18 15:06:00 CDT, Stop date: 07/22/18 15:06:00 CDT Notes: Do not exceed 4 gm/day. (Same as: Tylenol) Start Date: 07/22/18 Stop Date: 07/22/18 Status: Completed fentaNYL 50 microgram, 1 mL, Route: IVP, Drug form: INJ, ONCE, Dosing Weight 59.091, kg, Priority: STAT, Start date: 07/22/18 15:07:00 CDT, Stop date: 07/22/18 15:07:00 CDT Notes: (Same as: Sublimaze) Preservative free. Start Date: 07/22/18 Stop Date: 07/22/18 Status: Completed fentaNYL 50 microgram, Route: IVP, ONCE, Dosing Weight 59.091, kg, Priority: STAT, Start date: 07/22/18 12:13:00 CDT, Stop date: 07/22/18 12:13:00 CDT Start Date: 07/22/18 Stop Date: 07/22/18 Status: Completed gabapentin 300 mg, 1 cap, Route: PO, Drug form: CAP, ONCE, Dosing Weight 59.091, kg, Start date: 07/22/18 15:07:00 CDT, Stop date: 07/22/18 15:07:00 CDT Notes: (Same as: Neurontin) Start Date: 07/22/18 Stop Date: 07/22/18 Status: Completed Saline Flush 0.9% 10 mL, Route: IVP, Drug Form: INJ, Dosing Weight 59.091, kg, PRN, PRN Line Flush , Start date: 07/22/18 12:13:00 CDT, Duration: 30 day, Stop date: 08/21/18 11:12 :00 LINE TENDER Notes: (Same as: BD Posiflush) Start Date: 07/22/18 Stop Date: 07/22/18 Status: Discontinued Sodium Chloride 0.9% (Bolus) IV 250 mL, Infuse Over: 1 hr, Route: IV, ONCE, Priority: STAT, Dosing Weight 59.091 kg, Start date: 07/22/18 12:13:00 CDT, Stop date: 07/22/18 12:13:00 CDT Start Date: 07/22/18 Stop Date: 07/22/18 Status: Completed Results Most recent to 1 oldest [Reference Range]: Neutrophils # 6.6 K/CMM [1.5-8.1 K/CMM] (07/22/18 1:39 PM) Lymphocytes # 2.2 K/CMM [1.0-5.5 K/CMM] (07/22/18 1:39 PM) Monocytes # [0.0-0.8 1.0 K/CMM K/CMM] *HI* (07/22/18 1:39 PM) Eosinophils # 0.2 K/CMM [0.0-0.5 K/CMM] (07/22/18 1:39 PM) Basophils # [0.0-0.2 0.1 K/CMM K/CMM] (07/22/18 1:39 PM) eGFR 43 mL/min/1.73m2 1 *NA* (07/22/18 1:39 PM) A/G Ratio [0.7-1.6] 0.9 (07/22/18 1:39 PM) Albumin Lvl [3.5-5.0 3.1 g/dL g/dL] *LOW* (07/22/18 1:39 PM) Alk Phos [39-136 47 unit/L unit/L] (07/22/18 1:39 PM) ALT [0-65 unit/L] 19 unit/L (07/22/18 1:39 PM) AGAP [10.0-20.0 11.8 mEq/L mEq/L] (07/22/18 1:39 PM) AST [0-37 unit/L] 23 unit/L (07/22/18 1:39 PM) B/C Ratio [6-25] 19 (07/22/18 1:39 PM) Basophils [0.0-1.0 0.6 % %] (07/22/18 1:39 PM) BUN [7-22 mg/dL] 22 mg/dL (07/22/18 1:39 PM) Calcium Lvl 8.5 mg/dL [8.5-10.5 mg/dL] (07/22/18 1:39 PM) Total CK [12-191 94 unit/L unit/L] (07/22/18 1:39 PM) Chloride Lvl [95-109 97 mEq/L mEq/L] (07/22/18 1:39 PM) CO2 [24-32 mEq/L] 30 mEq/L (07/22/18 1:39 PM) Creatinine Lvl 1.15 mg/dL [0.50-1.40 mg/dL] (07/22/18 1:39 PM) Eosinophils [0.0-4.0 2.2 % %] (07/22/18 1:39 PM) Globulin [2.7-4.2 3.4 g/dL g/dL] (07/22/18 1:39 PM) Glucose Lvl [70-99 71 mg/dL mg/dL] (07/22/18 1:39 PM) Hct [36.0-48.0 %] 32.8 % *LOW* (07/22/18:39 PM) Hgb [12.0-16.0 g/dL] 11.0 g/dL *LOW* (07/22/18:39 PM) INR [0.85-1.17] 1.00 (07/22/18:39 PM) Potassium Lvl 3.8 mEq/L [3.5-5.1 mEq/L] (07/22/18:39 PM) Lymphocytes 21.6 % [20.0-40.0 %] (07/22/18:39 PM) MCH [27.0-31.0 pg] 31.1 pg *HI* (07/22/18:39 PM) MCHC [32.0-36.0 33.6 g/dL g/dL] (07/22/18:39 PM) MCV [80.0-98.0 fL] 92.7 fL (07/22/18:39 PM) Monocytes [2.0-12.0 10.3 % %] (07/22/18:39 PM) MPV [7.4-10.4 fL] 8.0 fL (07/22/18:39 PM) Sodium Lvl [135-145 135 mEq/L mEq/L] (07/22/18:39 PM) Platelet [133-450 246 K/CMM K/CMM] (07/22/18:39 PM) Segs [45.0-75.0 %] 65.3 % (07/22/18:39 PM) Total Protein 6.5 g/dL [6.4-8.4 g/dL] (07/22/18:39 PM) PT [12.0-14.7 13.2 seconds seconds] (07/22/18:39 PM) PTT [22.9-35.8 28.4 seconds seconds] (07/22/18 1:39 PM) RBC [4.20-5.40 3.54 M/CMM M/CMM] *LOW* (07/22/18:39 PM) RDW [11.5-14.5 %] 13.3 % (07/22/18 1:39 PM) Bili Total [0.2-1.3 0.4 mg/dL mg/dL] (07/22/18 1:39 PM) Troponin-I <0.02 ng/mL [0.00-0.40 ng/mL] (07/22/18 1:39 PM) UA Bili [Negative] Negative *NA* (07/22/18 1:39 PM) UA Blood [Negative] Negative (07/22/18 1:39 PM) UA Color [Yellow] Other *ABN* (07/22/18 1:39 PM) UA Glucose Negative [Negative] (07/22/18 1:39 PM) UA Ketones Negative [Negative] *NA* (07/22/18 1:39 PM) UA Leuk Est Negative [Negative] (07/22/18 1:39 PM) UA Nitrite Negative [Negative] (07/22/18 1:39 PM) UA pH [5.0-8.0] 6.5 (07/22/18 1:39 PM) UA Protein Negative [Negative] (07/22/18 1:39 PM) UA Spec Grav <=1.005 [<=1.030] *NA* (07/22/18 1:39 PM) UA Sq Epi [Few] None Seen (07/22/18 1:39 PM) UA Turbidity [Clear] Clear (07/22/18 1:39 PM) UA Urobilinogen 0.2 EU/dL [0.1-1.0 EU/dL] (07/22/18 1:39 PM) WBC [3.7-10.4 K/CMM] 10.1 K/CMM (07/22/18 1:39 PM) 1Result Comment: The eGFR is calculated [...] be mul tiplied by the estimated BMI. Immunizations Given and Recorded Vaccine Date Status [...]
--- OUTSIDE RECORDS SUMMARY | 2019-05-23 06:44 | XMS REPORT | Summary of Care ---
Author Author [facility] Organization [facility] Address Unknown Phone Unavailable Encounter JOSE Lizarraga(FIN) [id number] Date(s): 05/28/16 - 05/29/16 [facility] [address] [place] [address]- Discharge Disposition: Home or Self Care Attending Physician: Alexey Cruz MD Admitting Physician: Alexey Cruz MD Vital Signs 1 2 3 Most recent to oldest [Reference Range]: 152.4 cm (05/26/16 2:00 PM) Height 97.8 DegF (05/29/16 8:47 AM) 98.5 DegF (05/29/16 3:41 AM) 97 DegF (05/28/16 11:46 PM) Temperature Oral [96.4-99.1 DegF] 191/70 mmHg *HI* (05/29/16 8:47 AM) 185/69 mmHg *HI* (05/29/16 3:41 AM) 162/67 mmHg *HI* (05/28/16 11:46 PM) Blood Pressure [90-140/60-90 mmHg] 16 BRMIN (05/29/16 8:47 AM) 18 BRMIN (05/29/16 3:41 AM) 18 BRMIN (05/28/16 11:46 PM) Respiratory Rate [14-20 BRMIN] 71 bpm (05/29/16 8:47 AM) 75 bpm (05/29/16 3:41 AM) 70 bpm (05/28/16 11:46 PM) Peripheral Pulse Rate [60-100 bpm] 60.682 kg (05/26/16 2:00 PM) Weight 26.13 m2 (05/26/16 2:00 PM) Body Mass Index Problem List Condition Effective Dates Status Health Status Informant Escherichia Active coli(Confirmed)1 Heart Resolved abnormality(Confirme d) Hypertension(Confirm Active ed) Hypertension(Confirm Resolved ed) Nausea(Confirmed) 03/30/12 Active 1Problem added by Discern Expert. Allergies, Adverse Reactions, Alerts Substance Reaction Severity Status sulfa drugs Active Medications acetaminophen 650 mg, 2 tab, Route: PO, Drug form: TAB, Q4H, Dosing Weight 60.682, kg, PRN Mandi n 1-3/Temp > 100.4 F, Start date: 05/27/16 5:42:00 CDT, Duration: 30 day, Stop date: 06/26/16 5:41:00 CDT Notes: Do not exceed 4 gm/day. (Same as: Tylenol) Start Date: 05/27/16 Stop Date: 05/29/16 Status: Discontinued Ambien 5 mg, 1 tab, Route: PO, Drug form: TAB, Bedtime, Dosing Weight 60.682, kg, PRN I nsomnia, Start date: 05/26/16 20:42:00 CDT, Duration: 30 day, Stop date: 6 20:41:00 CDT Notes: (Same As: Ambien) Start Date: 05/26/16 Stop Date: 05/29/16 Status: Discontinued Cipro 500 mg oral tablet 500 mg=1 tab, PO, Q12H, X 7 day, # 14 tab, 0 Refill(s) Start Date: 05/29/16 Stop Date: 05/29/16 Status: Discontinued Cipro 500 mg oral tablet 500 mg=1 tab, PO, Q12H, X 7 day, # 14 tab, 0 Refill(s) Start Date: 05/29/16 Stop Date: 06/05/16 Status: Ordered ciprofloxacin 400 mg, 200 mL, Route: IVPB, Drug form: INJ, [id number], Dosing Weight 60.682, kg, Start date: 05/26/16 21:00:00 CDT, Duration: 30 day, Stop date: 06/25/16 9:00:00 CDT Notes: Do not refrigerate Start Date: 05/26/16 Stop Date: 05/29/16 Status: Discontinued Cozaar 50 mg, 1 tab, Route: PO, Drug form: TAB, Daily, Start date: 05/26/16 15:00:00 CD T, Duration: 30 day, Stop date: 06/25/16 9:00:00 CDT Notes: (Same as: Cozaar) Start Date: 05/26/16 Stop Date: 05/29/16 Status: Discontinued docusate 100 mg, 1 cap, Route: PO, Drug form: CAP, BID, Dosing Weight 60.682, kg, Start d ate: 05/27/16 9:00:00 CDT, Duration: 30 day, Stop date: 06/25/16 17:00:00 CDT Notes: (Same as: Colace) (Do Not Crush) Start Date: 05/27/16 Stop Date: 05/29/16 Status: Discontinued heparin 5,000 unit, 1 mL, Route: SUB-Q, Drug form: INJ, Q12H, Dosing Weight 59.091, kg, Start date: 05/26/16 21:00:00 CDT, Duration: 30 day, Stop date: 06/25/16 9:00:00 CDT Notes: porcine heparin Start Date: 05/26/16 Stop Date: 05/29/16 Status: Discontinued hydrochlorothiazide-losartan 12.5 mg-50 mg oral tablet 1 tab, Route: PO, Drug Form: TAB, Dosing Weight 59.091, kg, Daily, Start date: 0 05/27/16 9:00:00 CDT, Duration: 30 day, Stop date: 06/25/16 9:00:00 CDT Start Date: 05/27/16 Stop Date: 05/26/16 Status: Deleted hydrochlorothiazide-losartan 12.5 mg-50 mg oral tablet 1 tab, PO, Daily, # 30 tab, 0 Refill(s) Start Date: 05/26/16 Status: Ordered Imdur 30 mg, 1 tab, Route: PO, Drug form: ERTAB, QAM, Dosing Weight 59.091, kg, Start date: 05/26/16 15:00:00 CDT, Duration: 30 day, Stop date: 06/25/16 9:00:00 CDT Notes: (Same as:Imdur)"Do Not Crush" Take on empty stomach/ full glass of water . Do not crush Start Date: 05/26/16 Stop Date: 05/29/16 Status: Discontinued Microzide 12.5 mg, 1 cap, Route: PO, Drug form: CAP, Daily, Start date: 05/26/16 15:00:00 CDT, Duration: 30 day, Stop date: 06/25/16 9:00:00 CDT Notes: (Same as: Microzide) With food. Start Date: 05/26/16 Stop Date: 05/29/16 Status: Discontinued morphine Sulfate 2 mg, 1 mL, Route: IVP, Drug form: INJ, Q2H, Dosing Weight 60.682, kg, PRN Pain Score 7-10, Start date: 05/26/16 15:10:00 CDT, Duration: 30 day, Stop date: 11/09 15:09:00 CDT Notes: (Same as:MORPhine Sulfate) Start Date: 05/26/16 Stop Date: 05/28/16 Status: Discontinued morphine Sulfate 2 mg, 1 mL, Route: IVP, Drug form: INJ, Q4H, Dosing Weight 60.682, kg, PRN Pain Score 7-10, Start date: 05/28/16 9:50:00 CDT, Duration: 30 day, Stop date: 06/27 9:49:00 CDT Notes: (Same as:MORPhine Sulfate) Start Date: 05/28/16 Stop Date: 05/28/16 Status: Discontinued Neurontin 600 mg oral tablet 600 mg, 2 cap, Route: PO, Drug form: CAP, Daily, Dosing Weight 59.091, kg, Start date: 05/27/16 9:00:00 CDT, Duration: 30 day, Stop date: 06/25/16 9:00:00 CDT Notes: (Same as: Neurontin) Start Date: 05/27/16 Stop Date: 05/29/16 Status: Discontinued [place] 10/325 oral tablet 1 tab, Route: PO, Drug Form: TAB, Dosing Weight 60.682, kg, Q6H, PRN Pain Score 4-6, Start date: 05/27/16 10:12:00 CDT, Duration: 30 day, Stop date: 06/26/16 10 :11:00 CDT Notes: Do not exceed 4gm/day of acetaminophen. (Same as: [place] 325/10) Start Date: 05/27/16 Stop Date: 05/29/16 Status: Discontinued [place] 10/325 oral tablet 1 tab, Route: PO, Drug Form: TAB, Dosing Weight 60.682, kg, Q6H, PRN Pain Score 7-10, Start date: 05/28/16 9:47:00 CDT, Duration: 30 day, Stop date: 06/27/16 9: 46:00 CDT Notes: Do not exceed 4gm/day of acetaminophen. (Same as: [place] 325/10) Start Date: 05/28/16 Stop Date: 05/29/16 Status: Discontinued ondansetron 4 mg, 2 mL, Route: IVP, Drug form: INJ, Q6H, Dosing Weight 60.682, kg, PRN Nause a & Vomiting, Start date: 05/27/16 5:42:00 CDT, Duration: 30 day, Stop date: 06/26/16 5:41:00 CDT Notes: (Same as: Debra) MEDICATION WASTE Product Size: 4 mgProduct Was laurent: ___ mg Start Date: 05/27/16 Stop Date: 05/29/16 Status: Discontinued pneumococcal 13-valent vaccine 0.5 mL, Route: IM, Drug Form: INJ, Daily, Start date: 05/27/16 9:00:00 CDT, Dura tion: 1 doses or times, Stop date: 05/27/16 9:00:00 CDT Notes: Lightly roll vial (DO NOT SHAKE) before administration. (Same as: Tami r 13) Start Date: 05/27/16 Stop Date: 05/27/16 Status: Completed predniSONE 20 mg oral tablet 20 mg=1 tab, PO, Daily, X 14 day, # 14 tab, 0 Refill(s) Start Date: 05/29/16 Stop Date: 06/12/16 Status: Ordered predniSONE 20 mg oral tablet 20 mg=1 tab, PO, Daily, X 14 day, # 14 tab, 0 Refill(s) Start Date: 05/29/16 Stop Date: 06/12/16 Status: Ordered Saline Flush 0.9% 10 ml, Route: IVP, Drug Form: INJ, Dosing Weight 60.682, kg, PRN, PRN Line Flush , Start date: 05/27/16 5:42:00 CDT, Duration: 30 day, Stop date: 06/26/16 5:41:0 0 CDT Notes: (Same as: BD Posiflush) Start Date: 05/27/16 Stop Date: 05/29/16 Status: Discontinued sertraline 50 mg, 1 tab, Route: PO, Drug form: TAB, BID, Dosing Weight 59.091, kg, Start da te: 05/26/16 17:00:00 CDT, Duration: 30 day, Stop date: 06/25/16 9:00:00 CDT Notes: (Same as: Zoloft) Start Date: 05/26/16 Stop Date: 05/29/16 Status: Discontinued sertraline 50 mg oral tablet 50 mg=1 tab, PO, BID, 0 Refill(s) Start Date: 05/26/16 Status: Ordered simvastatin 20 mg, 1 tab, Route: PO, Drug form: TAB, Bedtime, Dosing Weight 59.091, kg, Star t date: 05/26/16 21:00:00 CDT, Duration: 30 day, Stop date: 06/24/16 21:00:00 CD T Notes: (Same as: Zocor) Start Date: 05/26/16 Stop Date: 05/29/16 Status: Discontinued simvastatin 20 mg=1 tab, PO, Bedtime, # 30 tab, 0 Refill(s) Start Date: 05/26/16 Stop Date: 05/29/16 Status: Discontinued sodium chloride 0.9% 1000 ml INJ 1,000 mL 1,000 mL, Rate: 75 ml/hr, Infuse over: 13.3 hr, Route: IV, Dosing Weight 60.682 kg, Total Volume: 1,000, Start date: 05/27/16 5:42:00 CDT, Duration: 30 day, Sto p date: 06/26/16 5:41:00 CDT Start Date: 05/27/16 Stop Date: 05/29/16 Status: Discontinued Solu-MEDROL 40 mg, 1 mL, Route: IVP, Drug form: INJ, Q8H, Dosing Weight 60.682, kg, Priority : NOW, Start date: 05/27/16 10:12:00 CDT, Duration: 30 day, Stop date: 06/26/16 8:00:00 CDT Notes: (Same as:Solu-MEDROL, A-Methapred) Start Date: 05/27/16 Stop Date: 05/29/16 Status: Discontinued sucralfate 1 gm, 1 tab, Route: PO, Drug form: TAB, TID, Dosing Weight 59.091, kg, Start nayana e: 05/26/16 17:00:00 CDT, Duration: 30 day, Stop date: 06/25/16 13:00:00 CDT Notes: May interfere w/enteral feeds - Take 1 hr before or 2 hr after antacids, dairy pdt, meals & minerals - On empty stomach. (Same As: Carafate) Start Date: 05/26/16 Stop Date: 05/29/16 Status: Discontinued sucralfate 1 gm, PO, TID, # 200 ml, 0 Refill(s) Start Date: 05/26/16 Status: Ordered Toprol-XL 25 mg oral tablet, extended release 25 mg, 1 tab, Route: PO, Drug form: ERTAB, Daily, Start date: 05/26/16 15:00:00 CDT, Duration: 30 day, Stop date: 06/25/16 9:00:00 CDT Notes: (Same as: Toprol XL) Do Not Crush Start Date: 05/26/16 Stop Date: 05/28/16 Status: Discontinued Toprol-XL 25 mg oral tablet, extended release 50 mg, 2 tab, Route: PO, Drug form: ERTAB, Daily, Priority: NOW, Start date: 01/07 11:57:00 CDT, Duration: 30 day, Stop date: 06/27/16 9:00:00 CDT Notes: (Same as: Toprol XL) Do Not Crush Start Date: 05/28/16 Stop Date: 05/29/16 Status: Discontinued tramadol 50 mg, 1 tab, Route: PO, Drug form: TAB, Q6H, Dosing Weight 60.682, kg, PRN Pain Score 1-3, Start date: 05/26/16 15:10:00 CDT, Stop date: 06/25/16 15:09:00 CDT Notes: Not to exceed 400mg/day. (Same As: Ultram) Start Date: 05/26/16 Stop Date: 05/29/16 Status: Discontinued Tylenol 650 mg, 2 tab, Route: PO, Drug form: TAB, Q6H, Dosing Weight 60.682, kg, PRN For Temp > 100.4 F, Start date: 05/26/16 20:42:00 CDT, Duration: 30 day, Stop date: 06/25/16 20:41:00 CDT Notes: Do not exceed 4 gm/day. (Same as: Tylenol) Start Date: 05/26/16 Stop Date: 05/29/16 Status: Discontinued Zofran 4 mg, 2 mL, Route: IVP, Drug form: INJ, Q4H, Dosing Weight 60.682, kg, PRN Nause a, Start date: 05/28/16 9:46:00 CDT, Duration: 30 day, Stop date: 06/27/16 9:45: 00 CDT Notes: (Same as: Zofran) MEDICATION WASTE Product Size: 4 mgProduct Was laurent: ___ mg Start Date: 05/28/16 Stop Date: 05/29/16 Status: Discontinued Results ELECTROLYTES 1 2 3 Most recent to oldest [Reference Range]: 138 mEq/L (05/29/16 4:44 AM) 138 mEq/L (05/28/16 3:44 AM) 141 mEq/L (05/27/16 6:32 AM) Sodium Lvl [135-145 mEq/L] 3.6 mEq/L (05/29/16 4:44 AM) 4.2 mEq/L (05/28/16 3:44 AM) 4.0 mEq/L (05/27/16 6:32 AM) Potassium Lvl [3.5-5.1 mEq/L] 106 mEq/L (05/29/16 4:44 AM) 104 mEq/L (05/28/16 3:44 AM) 108 mEq/L (05/27/16 6:32 AM) Chloride Lvl [95-109 mEq/L] 21 mEq/L *LOW* (05/29/16 4:44 AM) 24 mEq/L (05/28/16 3:44 AM) 25 mEq/L (05/27/16 6:32 AM) CO2 [24-32 mEq/L] 14.6 mEq/L (05/29/16 4:44 AM) 14.2 mEq/L (05/28/16 3:44 AM) 12.0 mEq/L (05/27/16 6:32 AM) AGAP [10.0-20.0 mEq/L] CHEM PANEL 1 2 3 Most recent to oldest [Reference Range]: 0.81 mg/dL (05/29/16 4:44 AM) 0.84 mg/dL (05/28/16 3:44 AM) 0.89 mg/dL (05/27/16 6:32 AM) Creatinine Lvl [0.50-1.40 mg/dL] 66 mL/min/1.73m2 1 *NA* (05/29/16 4:44 AM) 63 mL/min/1.73m2 2 *NA* (05/28/16 3:44 AM) 59 mL/min/1.73m2 3 *NA* (05/27/16 6:32 AM) eGFR 19 mg/dL (05/29/16 4:44 AM) 16 mg/dL (05/28/16 3:44 AM) 17 mg/dL (05/27/16 6:32 AM) BUN [7-22 mg/dL] 19 (05/27/16 6:32 AM) B/C Ratio [6-25] 114 mg/dL *HI* (05/29/16 4:44 AM) 134 mg/dL *HI* (05/28/16 3:44 AM) 99 mg/dL (05/27/16 6:32 AM) Glucose Lvl [70-99 mg/dL] 6.5 g/dL (05/27/16 6:32 AM) Total Protein [6.4-8.4 g/dL] 3.0 g/dL *LOW* (05/27/16 6:32 AM) Albumin Lvl [3.5-5.0 g/dL] 3.5 g/dL (05/27/16 6:32 AM) Globulin [2.7-4.2 g/dL] 0.9 (05/27/16 6:32 AM) A/G Ratio [0.7-1.6] 7.1 mg/dL *LOW* (05/29/16 4:44 AM) 8.1 mg/dL *LOW* (05/28/16 3:44 AM) 8.2 mg/dL *LOW* (05/27/16 6:32 AM) Calcium Lvl [8.5-10.5 mg/dL] 2.4 mg/dL *LOW* (05/27/16 6:32 AM) Phosphorus [2.5-4.5 mg/dL] 1.8 mg/dL (05/27/16 6:32 AM) Magnesium Lvl [1.8-2.4 mg/dL] 13 unit/L (05/27/16 6:32 AM) ALT [0-65 unit/L] 18 unit/L (05/27/16 6:32 AM) AST [0-37 unit/L] 60 unit/L (05/27/16 6:32 AM) Alk Phos [39-136 unit/L] 0.3 mg/dL (05/27/16 6:32 AM) Bili Total [0.2-1.3 mg/dL] 1.0 mMol/L (05/26/16 4:21 PM) Lactic Acid Lvl [0.5-2.2 mMol/L] 1Result Comment: The eGFR is calculated using [...] be mul tiplied by the estimated BMI. URINE AND STOOL 1 2 3 Most recent to oldest [Reference Range]: Clear (05/27/16 7:36 AM) UA Turbidity [Clear] Ltyellow *NA* (05/27/16 7:36 AM) UA Color 5.0 (05/27/16 7:36 AM) UA pH [5.0-8.0] 1.013 (05/27/16 7:36 AM) UA Spec Grav [<=1.030] Negative mg/dL *NA* (05/27/16 7:36 AM) UA Glucose [Negative mg/dL] Negative (05/27/16 7:36 AM) UA Blood [Negative] Negative mg/dL *NA* (05/27/16 7:36 AM) UA Ketones [Negative mg/dL] Negative mg/dL (05/27/16 7:36 AM) UA Protein [Negative mg/dL] <=1.0 mg/dL *NA* (05/27/16 7:36 AM) UA Urobilinogen [0.1-1.0 mg/dL] Negative *NA* (05/27/16 7:36 AM) UA Bili [Negative] Moderate *ABN* (05/27/16 7:36 AM) UA Leuk Est [Negative] Negative (05/27/16 7:36 AM) UA Nitrite [Negative] 7 /HPF *HI* (05/27/16 7:36 AM) UA WBC [0-5 /HPF] Moderate /HPF *ABN* (05/27/16 7:36 AM) UA Bacteria [None Seen /HPF] Occasional /LPF *NA* (05/27/16 7:36 AM) UA Sq Epi [Few /LPF] Few /LPF *NA* (05/27/16 7:36 AM) UA Mucus [None Seen /LPF] IMMUNOLOGY 1 2 3 Most recent to oldest [Reference Range]: Positive *ABN* (05/26/16 4:17 PM) CARLA [Negative] 1:40 *ABN* (05/26/16 4:17 PM) CARLA Titer [Negative] Pattern appears Speckled, Chromosome Positive *NA* (05/26/16 4:17 PM) CARLA Interp <10 IU/mL (05/26/16 4:17 PM) RF Qnt [0-20 IU/mL] 35.6 mg/L *NA* (05/28/16 2:16 PM) CRP, High Sensitivity 44.9 mg/L *HI* (05/26/16 4:17 PM) CRP [<=2.9 mg/L] HEMATOLOGY 1 2 3 Most recent to oldest [Reference Range]: 7.4 K/CMM (05/29/16 4:44 AM) 6.7 K/CMM (05/28/16 3:44 AM) 7.4 K/CMM (05/27/16 6:32 AM) WBC [3.7-10.4 K/CMM] 2.81 M/CMM *LOW* (05/29/16 4:44 AM) 3.14 M/CMM *LOW* (05/28/16 3:44 AM) 3.04 M/CMM *LOW* (05/27/16 6:32 AM) RBC [4.20-5.40 M/CMM] 8.5 g/dL *LOW* (05/29/16 4:44 AM) 9.4 g/dL *LOW* (05/28/16 3:44 AM) 9.3 g/dL *LOW* (05/27/16 6:32 AM) Hgb [12.0-16.0 g/dL] 25.9 % *LOW* (05/29/16 4:44 AM) 28.8 % *LOW* (05/28/16 3:44 AM) 27.9 % *LOW* (05/27/16 6:32 AM) Hct [36.0-48.0 %] 92.0 fL (05/29/16 4:44 AM) 91.7 fL (05/28/16 3:44 AM) 91.6 fL (05/27/16 6:32 AM) MCV [80.0-98.0 fL] 30.4 pg (05/29/16 4:44 AM) 29.9 pg (05/28/16 3:44 AM) 30.4 pg (05/27/16 6:32 AM) MCH [27.0-31.0 pg] 33.0 g/dL (05/29/16 4:44 AM) 32.6 g/dL (05/28/16 3:44 AM) 33.2 g/dL (05/27/16 6:32 AM) MCHC [32.0-36.0 g/dL] 13.0 % (05/29/16 4:44 AM) 13.7 % (05/28/16 3:44 AM) 13.7 % (05/27/16 6:32 AM) RDW [11.5-14.5 %] 266 K/CMM (05/29/16 4:44 AM) 280 K/CMM (05/28/16 3:44 AM) 266 K/CMM (05/27/16 6:32 AM) Platelet [133-450 K/CMM] 7.5 fL (05/29/16 4:44 AM) 7.8 fL (05/28/16 3:44 AM) 7.6 fL (05/27/16 6:32 AM) MPV [7.4-10.4 fL] 85.9 % *HI* (05/29/16 4:44 AM) 81.3 % *HI* (05/28/16 3:44 AM) 68.4 % (05/27/16 6:32 AM) Segs [45.0-75.0 %] 12.1 % *LOW* (05/29/16 4:44 AM) 15.9 % *LOW* (05/28/16 3:44 AM) 21.3 % (05/27/16 6:32 AM) Lymphocytes [20.0-40.0 %] 1.9 % *LOW* (05/29/16 4:44 AM) 2.5 % (05/28/16 3:44 AM) 8.0 % (05/27/16 6:32 AM) Monocytes [2.0-12.0 %] 0.1 % (05/28/16 3:44 AM) 1.6 % (05/27/16 6:32 AM) 2.3 % (05/27/16 4:33 AM) Eosinophils [0.0-4.0 %] 0.1 % (05/29/16 4:44 AM) 0.2 % (05/28/16 3:44 AM) 0.7 % (05/27/16 6:32 AM) Basophils [0.0-1.0 %] 6.4 K/CMM (05/29/16 4:44 AM) 5.5 K/CMM (05/28/16 3:44 AM) 5.0 K/CMM (05/27/16 6:32 AM) Segs-Bands # [1.5-8.1 K/CMM] 0.9 K/CMM *LOW* (05/29/16 4:44 AM) 1.1 K/CMM (05/28/16 3:44 AM) 1.6 K/CMM (05/27/16 6:32 AM) Lymphocytes # [1.0-5.5 K/CMM] 0.1 K/CMM (05/29/16 4:44 AM) 0.2 K/CMM (05/28/16 3:44 AM) 0.6 K/CMM (05/27/16 6:32 AM) Monocytes # [0.0-0.8 K/CMM] 0.1 K/CMM (05/27/16 6:32 AM) 0.2 K/CMM (05/27/16 4:33 AM) 0.2 K/CMM (05/26/16 9:15 PM) Eosinophils # [0.0-0.5 K/CMM] 0.1 K/CMM (05/27/16 6:32 AM) 0.1 K/CMM (05/27/16 4:33 AM) 0.1 K/CMM (05/26/16 9:15 PM) Basophils # [0.0-0.2 K/CMM] 36 mm/hr *HI* (05/28/16 2:16 PM) 64 mm/hr *HI* (05/26/16 4:17 PM) Sed Rate [0-20 mm/hr] 33.0 seconds (05/26/16 4:17 PM) PTT [22.9-35.8 seconds] Immunizations Given and Recorded Vaccine Date Status [...]
--- OUTSIDE RECORDS SUMMARY | 2019-05-23 06:44 | XMS REPORT | CCD ---
Author Author Auto Generated Organization [facility] Address Unknown Phone Unavailable Care Team Providers Care Civil Drafter Name Role Phone Alexey Cruz PP Kathie Guzman CP Allergies, Adverse Reactions, Alerts Substance Reaction Status sulfa drugs Active Problem List Condition Effective Dates Status Hypertension Active Nausea 03/30/2012 Active Medications Medication Instructions Start Date End Date Status potassium chloride 40 mEq, 2 tab, Route: PO, Drug 03/31/2012 03/31/2012 Completed form: ERTAB, ONCE, Start date: 03/31/12 11:17:00, Stop date: 03/31/12 11:17:00 Imdur 30 mg, 1 tab, Route: PO, Drug form: 03/31/2012 03/31/2012 Discontinued ERTAB, QAM, Start date: 03/31/12 12:00:00, Duration: 30 day, Stop date: 04/30/12 9:00:00 simvastatin 10 mg, 1 tab, Route: PO, Drug form: 03/31/2012 03/31/2012 Canceled TAB, Bedtime, Start date: 03/31/12 21:00:00, Duration: 30 day, Stop date: 04/29/12 21:00:00 Toprol-XL 25 mg oral 25 mg, 1 tab, Route: PO, Drug form: 03/31/2012 03/31/2012 Discontinued tablet, extended ERTAB, Daily, Start date: 03/31/12 release 12:00:00, Duration: 30 day, Stop date: 04/30/12 9:00:00 Neurontin 600 mg 600 mg, 2 cap, Route: PO, Drug 03/31/2012 03/31/2012 Discontinued oral tablet form: CAP, BID, Start date: 03/31/12 12:00:00, Duration: 30 day, Stop date: 04/30/12 9:00:00 estradiol 0.25 mg, 0.25 tab, Route: PO, Drug 04/01/2012 03/31/2012 Canceled form: TAB, Daily, Start date: 04/01/12 9:00:00, Duration: 30 day, Stop date: 04/30/12 9:00:00 folic acid 1 mg, 1 tab, Route: PO, Drug form: 03/31/2012 03/31/2012 Discontinued TAB, Daily, Start date: 03/31/12 12:00:00, Duration: 30 day, Stop date: 04/30/12 9:00:00 cyclobenzaprine 10 mg, 1 tab, Route: PO, Drug form: 03/31/2012 03/31/2012 Canceled TAB, Bedtime, Start date: 03/31/12 21:00:00, Duration: 30 day, Stop date: 04/29/12 21:00:00 D5NS + KCL 20mEq/L 1,000 mL, Rate: 40 ml/hr, Infuse 03/30/2012 03/30/2012 Discontinued 1000ml (Premix) over: 25 hr, Route: IV, Dosing 1,000 mL Weight 59.091 kg, Total Volume: 1,000, Start date: 03/30/12 21:40:00, Duration: 30 day, Stop date: 04/29/12 21:39:00 Saline Flush 0.9% 5 ml, Route: IVP, Drug Form: INJ, 03/30/2012 03/31/2012 Discontinued PRN, PRN Line Flush, Start date: 03/30/12 21:40:00, Duration: 30 day, Stop date: 04/29/12 21:39:00 ondansetron 4 mg, 2 mL, Route: IVP, Drug form: 03/30/2012 03/31/2012 Discontinued INJ, Q6H, PRN Nausea & Vomiting, Start date: 03/30/12 21:40:00, Duration: 30 day, Stop date: 04/29/12 21:39:00 Fosamax 10 mg, 1 tab, Route: PO, Drug form: 04/01/2012 03/31/2012 Canceled TAB, Q630AM, Start date: 04/01/12 6:30:00, Duration: 30 day, Stop date: 04/30/12 6:30:00 Hyzaar 50 mg-12.5 mg 1 tab, PO, Daily, 30 tab, 03/30/2012 Ordered oral tablet Substitution Allowed, Soft Stop, TAB Sodium Chloride 0.9% 1,000 mL, Rate: 125 ml/hr, Infuse 03/30/2012 03/31/2012 Discontinued IV 1,000 mL over: 8 hr, Route: IV, Dosing Weight 59.091 kg, Total Volume: 1,000, Start date: 03/30/12 23:13:00, Stop date: 04/29/12 23:12:00 nitroglycerin 0.4 mg 0.4 mg, 1 tab, Route: SL, Drug 03/30/2012 03/31/2012 Discontinued sublingual tablet form: TAB, Q5Min, PRN Chest Pain, Start date: 03/30/12 21:53:00, Duration: 30 day, Stop date: 04/29/12 21:52:00 atropine 0.5 mg, 5 mL, Route: IVP, Drug 03/30/2012 03/31/2012 Discontinued form: INJ, PRN, PRN Bradycardia, Start date: 03/30/12 21:53:00, Duration: 30 day, Stop date: 04/29/12 21:52:00 Restoril 15 mg, 1 cap, Route: PO, Drug form: 03/30/2012 03/31/2012 Discontinued CAP, Bedtime, PRN Sleep, Start date: 03/30/12 23:12:00, Duration: 30 day, Stop date: 04/29/12 23:11:00 potassium chloride 40 mEq, 2 tab, Route: PO, Drug 03/30/2012 03/30/2012 Completed form: ERTAB, ONCE, Priority: STAT, Start date: 03/30/12 18:47:00, Stop date: 03/30/12 18:47:00 pneumococcal 0.5 ml, Route: IM, Drug Form: INJ, 09/07/2009 09/07/2009 Completed 23-valent vaccine ONCE, Start date: 09/07/09 12:00:00, Stop date: 09/07/09 12:00:00 normal saline 0.9% 1,000 mL, Rate: 125 ml/hr, Infuse 03/30/2012 03/30/2012 Discontinued IV 1,000 mL over: 8 hr, Route: IV, Dosing Weight 59.091 kg, Total Volume: 1,000, Start date: 03/30/12 22:29:00, Duration: 30 day, Stop date: 04/29/12 22:28:00 Maxzide 37.5 mg-25 PO, Daily, Substitution Allowed, 03/30/2012 03/31/2012 Discontinued mg oral tablet Soft Stop, TAB ondansetron 4 mg, Route: IVP, Drug form: INJ, 03/30/2012 03/30/2012 Discontinued ONCE, Priority: STAT, Start date: 03/30/12 17:55:00, Stop date: 03/30/12 17:55:00 cyclobenzaprine 10 mg, PO, Bedtime, Substitution 03/30/2012 Ordered Allowed, TAB NS (Bolus) IV 500 mL 500 mL, Rate: 100 ml/hr, Infuse 03/30/2012 03/30/2012 Discontinued over: 5 hr, Route: IV, Dosing Weight 59 kg, Total Volume: 500, Start date: 03/30/12 17:54:00, Duration: 30 day, Stop date: 04/29/12 17:53:00 metoprolol 25 mg 25 mg, PO, Daily, 30 tab, 03/30/2012 04/29/2012 Ordered oral tablet, Substitution Allowed extended release folic acid 1 mg, PO, Daily, Substitution 03/30/2012 Ordered Allowed, TAB alendronate 70 mg, PO, QSun, Substitution 03/30/2012 Ordered Allowed, CAP sertraline 100 mg 100 mg, 1 tab, PO, Daily, 30 tab, 03/30/2012 Ordered oral tablet Substitution Allowed, TAB estradiol 0.25 mg, PO, Daily, Substitution 03/30/2012 Ordered Allowed, TAB Neurontin 600 mg 600 mg, 1 tab, PO, BID, 03/30/2012 Ordered oral tablet Substitution Allowed, TAB simvastatin 10 mg, PO, Bedtime, 30 tab, 03/30/2012 04/29/2012 Ordered Substitution Allowed Imdur 30 mg oral 30 mg, 1 tab, PO, QAM, 30 tab, 03/30/2012 Ordered tablet, extended Substitution Allowed, ERTAB release Saline Flush 0.9% 5 ml, Route: IVP, Drug Form: INJ, 03/30/2012 03/30/2012 Discontinued PRN, PRN Line Flush, Start date: 03/30/12 17:47:00, Duration: 24 hr, Stop date: 03/31/12 17:46:00 Immunizations Vaccine Date Status pneumococcal 23-valent vaccine 09/07/2009 Auth (Verified) Vital Signs Most recent to oldest [Reference Range]: 1 2 3 Height 152.40 cm (03/30/2012 22:00:00) 165.10 cm (03/30/2012 16:37:00) Current Weight 56.818 kg (03/30/2012 22:00:00) Temperature Oral [96.4-99.1 DegF] 97.9 DegF (03/31/2012 12:00:00) 98.2 DegF (03/31/2012 08:00:00) 98.2 DegF (03/31/2012 04:00:00) Systolic Blood Pressure [90-140 mmHg] 149 mmHg *HI* (03/31/2012 12:00:00) 156 mmHg *HI* (03/31/2012 08:00:00) 148 mmHg *HI* (03/31/2012 04:00:00) Diastolic Blood Pressure [60-90 mmHg] 74 mmHg (03/31/2012 12:00:00) 71 mmHg (03/31/2012 08:00:00) 63 mmHg (03/31/2012 04:00:00) Respiratory Rate [14-20 BRMIN] 16 BRMIN (03/31/2012 12:00:00) 16 BRMIN (03/31/2012 08:00:00) 18 BRMIN (03/31/2012 04:00:00) Peripheral Pulse Rate [60-100 bpm] 87 bpm (03/31/2012 12:00:00) 93 bpm (03/31/2012 08:00:00) 80 bpm (03/31/2012 04:00:00) Weight 59.091 kg (03/30/2012 16:37:00) Results URINALYSIS Most recent to oldest [Reference Range]: 1 2 3 UA Turbidity [Clear] Slight *ABN* (03/30/2012 17:48:00) UA Color Ltyellow *NA* (03/30/2012 17:48:00) UA pH [5.0-8.0] 5.0 (03/30/2012 17:48:00) UA Spec Grav [<=1.030] 1.013 (03/30/2012 17:48:00) UA Glucose [Negative mg/dL] Negative mg/dL *NA* (03/30/2012 17:48:00) UA Blood [Negative] Small *ABN* (03/30/2012 17:48:00) UA Ketones [Negative mg/dL] 80 mg/dL *ABN* (03/30/2012 17:48:00) UA Protein [Negative mg/dL] 30 mg/dL *ABN* (03/30/2012 17:48:00) UA Urobilinogen [0.1-1.0 mg/dL] <=1.0 mg/dL *NA* (03/30/2012 17:48:00) UA Bili [Negative] Negative *NA* (03/30/2012 17:48:00) UA Leuk Est [Negative] Negative (03/30/2012 17:48:00) UA Nitrite [Negative] Negative (03/30/2012 17:48:00) UA RBC [0-2 /HPF] 17 /HPF *HI* (03/30/2012 17:48:00) UA Bacteria [None Seen /HPF] Occasional /HPF *NA* (03/30/2012 17:48:00) UA Sq Epi [Few /LPF] Occasional /LPF *NA* (03/30/2012 17:48:00) CHEMISTRY Most recent to oldest [Reference Range]: 1 2 3 Sodium Lvl [135-145 mEq/L] 127 mEq/L *LOW* (03/31/2012 03:27:00) 122 mEq/L *LOW* (03/30/2012 16:46:00) Potassium Lvl [3.5-5.1 mEq/L] 3.4 mEq/L *LOW* (03/31/2012 03:27:00) 3.4 mEq/L *LOW* (03/30/2012 21:10:00) 2.9 mEq/L 1 *CRIT* (03/30/2012 16:46:00) Chloride Lvl [95-109 mEq/L] 93 mEq/L *LOW* (03/31/2012 03:27:00) 85 mEq/L *LOW* (03/30/2012 16:46:00) CO2 [24-32 mEq/L] 20 mEq/L *LOW* (03/31/2012 03:27:00) 22 mEq/L *LOW* (03/30/2012 16:46:00) AGAP [10.0-20.0 mEq/L] 17.4 mEq/L (03/31/2012 03:27:00) 17.9 mEq/L (03/30/2012 16:46:00) Creatinine Lvl [0.5-1.4 mg/dL] 0.6 mg/dL (03/31/2012 03:27:00) 0.8 mg/dL (03/30/2012 16:46:00) BUN [7-22 mg/dL] 10 mg/dL (03/31/2012 03:27:00) 12 mg/dL (03/30/2012 16:46:00) B/C Ratio [6-25] 17 (03/31/2012 03:27:00) 15 (03/30/2012 16:46:00) Glucose Lvl [70-99 mg/dL] 64 mg/dL 2 *LOW* (03/31/2012 03:27:00) 106 mg/dL 3 *HI* (03/30/2012 16:46:00) Total Protein [6.4-8.4 g/dL] 5.8 g/dL *LOW* (03/31/2012 03:27:00) 7.0 g/dL (03/30/2012 16:46:00) Albumin Lvl [3.5-5.0 g/dL] 3.1 g/dL *LOW* (03/31/2012 03:27:00) 3.6 g/dL (03/30/2012 16:46:00) Globulin [2.0-4.0 g/dL] 2.7 g/dL (03/31/2012 03:27:00) 3.4 g/dL (03/30/2012 16:46:00) A/G Ratio [0.7-1.6] 1.1 (03/31/2012 03:27:00) 1.1 (03/30/2012 16:46:00) Calcium Lvl [8.5-10.5 mg/dL] 7.6 mg/dL *LOW* (03/31/2012 03:27:00) 8.4 mg/dL *LOW* (03/30/2012 16:46:00) ALT [0-65 U/L] 25 U/L (03/31/2012 03:27:00) 27 U/L (03/30/2012 16:46:00) AST [0-37 U/L] 26 U/L (03/31/2012 03:27:00) 27 U/L (03/30/2012 16:46:00) Alk Phos [39-136 U/L] 45 U/L (03/31/2012 03:27:00) 55 U/L (03/30/2012 16:46:00) Bili Total [0.2-1.3 mg/dL] 0.4 mg/dL (03/31/2012 03:27:00) 0.5 mg/dL (03/30/2012 16:46:00) Lipase Lvl [73-393 U/L] 110 U/L (03/30/2012 16:46:00) 1Result Comment: Critical Result(s) called to Medina at 03/30/2012 18:41:47 CDT by Magdalena. Read back OK. 2Interpretive Data: Adult reference range values reflect the clinical guidelines of the [employer]. 3Interpretive Data: Adult reference range values reflect the clinical guidelines of the [employer]. HEMATOLOGY Most recent to oldest [Reference Range]: 1 2 3 WBC [3.7-10.4 K/CMM] 6.7 K/CMM (03/31/2012 03:27:00) 8.2 K/CMM (03/30/2012 16:46:00) RBC [4.20-5.40 M/CMM] 3.68 M/CMM *LOW* (03/31/2012 03:27:00) 3.98 M/CMM *LOW* (03/30/2012 16:46:00) Hgb [12.0-16.0 g/dL] 12.1 g/dL (03/31/2012 03:27:00) 12.8 g/dL (03/30/2012 16:46:00) Hct [36.0-48.0 %] 34.9 % *LOW* (03/31/2012 03:27:00) 37.5 % (03/30/2012 16:46:00) MCV [81.0-99.0 fL] 95.0 fL (03/31/2012 03:27:00) 94.3 fL (03/30/2012 16:46:00) MCH [27.0-31.0 pg] 32.9 pg *HI* (03/31/2012 03:27:00) 32.3 pg *HI* (03/30/2012 16:46:00) MCHC [32.0-36.0 g/dL] 34.6 g/dL (03/31/2012 03:27:00) 34.2 g/dL (03/30/2012 16:46:00) RDW [11.5-14.5 %] 12.5 % (03/31/2012 03:27:00) 12.4 % (03/30/2012 16:46:00) Platelet [133-450 K/CMM] 285 K/CMM (03/31/2012 03:27:00) 318 K/CMM (03/30/2012 16:46:00) MPV [7.4-10.4 fL] 7.2 fL *LOW* (03/31/2012 03:27:00) 7.6 fL (03/30/2012 16:46:00) Segs [45.0-75.0 %] 64.8 % (03/31/2012 03:27:00) 79.0 % *HI* (03/30/2012 16:46:00) Lymphocytes [20.0-40.0 %] 26.5 % (03/31/2012 03:27:00) 14.3 % *LOW* (03/30/2012 16:46:00) Monocytes [2.0-12.0 %] 8.4 % (03/31/2012 03:27:00) 6.5 % (03/30/2012 16:46:00) Eosinophils [0.0-4.0 %] 0.2 % (03/31/2012 03:27:00) 0.0 % (03/30/2012 16:46:00) Basophils [0.0-1.0 %] 0.1 % (03/31/2012 03:27:00) 0.2 % (03/30/2012 16:46:00) Segs-Bands # [1.5-8.1 K/CMM] 4.4 K/CMM (03/31/2012 03:27:00) 6.5 K/CMM (03/30/2012 16:46:00) Lymphocytes # [1.0-5.5 K/CMM] 1.8 K/CMM (03/31/2012 03:27:00) 1.2 K/CMM (03/30/2012 16:46:00) Monocytes # [0.0-0.8 K/CMM] 0.6 K/CMM (03/31/2012 03:27:00) 0.5 K/CMM (03/30/2012 16:46:00) Eosinophils # [0.0-0.5 K/CMM] 0.0 K/CMM (03/31/2012 03:27:00) 0.0 K/CMM (03/30/2012 16:46:00) Basophils # [0.0-0.2 K/CMM] 0.0 K/CMM (03/31/2012 03:27:00) 0.0 K/CMM (03/30/2012 16:46:00)
--- OUTSIDE RECORDS SUMMARY | 2019-05-23 06:44 | XMS REPORT | Summary of Care ---
Author Organization Unknown Address Unknown Phone Unavailable Care Team Providers Care Mule Developer Name Role Phone Alexey Cruz PCP Encounter [email or web address]) [id number] Date(s): 02/18/14 - 02/18/14 [facility] [id number] Discharge Disposition: Home Physician Attending: Alexey Cruz MD Physician Admitting: Alexey Cruz MD Reason for Visit UNK Problem List Condition Effective Dates Status Health Status Informant Hypertension(Confirm Active ed) Nausea(Confirmed) 03/30/12 Active Allergies, Adverse Reactions, Alerts Substance Reaction Severity Status sulfa drugs Active Medications No data available for this section Medications Administered During Your Visit No data available for this section Immunizations Vaccine Date Refusal Reason pneumococcal 23-valent vaccine 09/07/09 Social History Social History Type Response
--- OUTSIDE RECORDS SUMMARY | 2019-05-23 06:44 | XMS REPORT | Summary of Care ---
Author Author [facility] Organization 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 [id number] [place] [address]- Discharge Disposition: Home or Self Care Attending Physician: Alexey Cruz MD Admitting Physician: Alexey Cruz MD Vital Signs 1 2 3 Most recent to oldest [Reference Range]: 152.4 cm (04/14/19 5:41 PM) Height 98.1 DegF (04/18/19 10:59 AM) 98.7 DegF (04/18/19 4:45 AM) 98.7 DegF (04/18/19 4:45 AM) Temperature Oral [96.4-99.1 DegF] 168/62 mmHg *HI* (04/18/19 10:59 AM) 147/69 mmHg *HI* (04/18/19 8:45 AM) 190/44 mmHg *HI* (04/18/19 8:00 AM) Blood Pressure [90-140/60-90 mmHg] 16 BRMIN (04/18/19 10:59 AM) 16 BRMIN (04/18/19 8:00 AM) 18 BRMIN (04/18/19 6:41 AM) Respiratory Rate [14-20 BRMIN] 75 bpm (04/18/19 10:59 AM) 82 bpm (04/18/19 8:45 AM) 97 bpm (04/18/19 8:00 AM) Peripheral Pulse Rate [60-100 bpm] 58.5 kg (04/14/19 5:41 PM) Weight 25.19 m2 (04/14/19 5:41 PM) Body Mass Index Problem List Condition Effective Dates Status Health Status Informant Escherichia Active coli(Confirmed)1 Heart Resolved abnormality(Confirme d) Hypertension(Confirm Active ed) Hypertension(Confirm Resolved ed) Nausea(Confirmed) 03/30/12 Active 1Problem added by Discern Expert. Allergies, Adverse Reactions, Alerts No Known Allergies Medications *Please update height/weight/allergies on profile* *Please update height/weight/allergies on profile*, ATTN:RN, Drug form: MISCSilvana new [place]: MISC, Q30Min, 04/14/19 16:00:00 CDT, Duration: 4 hr, Stop date: 04/14/19 19 :30:00 CDT, 0 Start Date: 04/14/19 Stop Date: 04/14/19 Status: Voided With Results *RN please bring pt Myrbetriq to pharmacy for label* *RN please bring pt Myrbetriq to pharmacy for label*, reminder, Drug form: MISC, Route: MISC, [id number], 04/15/19 20:00:00 CDT, Duration: 30 day, Stop date: 05/15 8:00:00 CDT, 0 Start Date: 04/15/19 Stop Date: 04/16/19 Status: Voided With Results albuterol 0.083% inhalation solution 2.49 mg, 3 mL, Route: NEB, Drug form: SOLN, RQ6H, Dosing Weight 54.545, kg, Prio rity: Routine, Start date: 04/14/19 14:00:00 CDT, Duration: 30 day, Stop date: 0 05/14/19 8:00:00 CDT, 0 Notes: SEE RT DOCUMENTATION (Same as: Proventil) Start Date: 04/14/19 Stop Date: 04/18/19 Status: Discontinued aspirin 81 mg tablet, enteric coated 81 mg, 1 tab, Route: PO, Drug form: ECTAB, Bedtime, Dosing Weight 58.5, kg, Star t date: 04/15/19 11:45:00 CDT, Stop date: 05/15/19 21:00:00 CDT, 0 Notes: Do not crush or chew.(Same As: Ecotrin) Start Date: 04/15/19 Stop Date: 04/18/19 Status: Discontinued aspirin 81 mg tablet, enteric coated 81 mg, 1 tab, Route: PO, Drug form: ECTAB, Daily, Dosing Weight 58.5, kg, Start date: 04/16/19 9:00:00 CDT, Duration: 30 day, Stop date: 05/15/19 9:00:00 CDT, 0 Notes: Do not crush or chew.(Same As: Ecotrin) Start Date: 04/16/19 Stop Date: 04/15/19 Status: Canceled azithromycin 500 mg, Route: IVPB, ONCE, Dosing Weight 54.545, kg, Priority: STAT, Start date: 04/14/19 11:20:00 CDT, Stop date: 04/14/19 11:20:00 CDT, ABX Indication: Pneumo nicholas Start Date: 04/14/19 Stop Date: 04/14/19 Status: Discontinued cefTRIAXone 1 gm, Route: IVP, ONCE, Dosing Weight 54.545, kg, Priority: STAT, Start date: 11:20:00 CDT, Stop date: 04/14/19 11:20:00 CDT, ABX Indication: Pneumonia Start Date: 04/14/19 Stop Date: 04/14/19 Status: Discontinued cefTRIAXone + sterile water 10 mL 1 gm, Route: IV, ONCE, Start date: 04/14/19 18:00:00 CDT, Stop date: 04/14/19 18 :00:00 CDT, ABX Indication: Other (specify in Comments), 0 Notes: (Same As: Rocephin).Use with 100 mL NS and infuse over 30 min MEDICA TION WASTE Product Size: 1000 mgProduct Wasted: ___ mg Start Date: 04/14/19 Stop Date: 04/15/19 Status: Completed Cozaar 50 mg, 1 tab, Route: PO, Drug form: TAB, Daily, Start date: 04/16/19 9:00:00 CDT , Duration: 30 day, Stop date: 05/15/19 9:00:00 CDT, 0 Notes: (Same as: Cozaar) Start Date: 04/16/19 Stop Date: 04/15/19 Status: Canceled Cozaar 50 mg, 1 tab, Route: PO, Drug form: TAB, Bedtime, Start date: 04/15/19 11:45:00 CDT, Stop date: 05/15/19 21:00:00 CDT, 0 Notes: (Same as: Xavier) Start Date: 04/15/19 Stop Date: 04/18/19 Status: Discontinued D5W 1/2NS 1,000 mL 1,000 mL, Rate: 100 ml/hr, Infuse over: 10 hr, Route: IV, Dosing Weight 58.5 kg, Total Volume: 1,000, Start date: 04/16/19 7:52:00 CDT, Duration: 30 day, Stop d ate: 05/16/19 7:51:00 CDT, 1.59, m2, 0 Start Date: 04/16/19 Stop Date: 04/17/19 Status: Discontinued dextromethorphan-guaiFENesin 10 mg-100 mg/5 mL oral liquid 10 mL, Route: PO, Drug Form: LIQ, Dosing Weight 54.545, kg, Q4H, PRN Cough, Star t date: 04/14/19 11:23:00 CDT, Duration: 30 day, Stop date: 05/14/19 11:22:00 CD T, 0 Notes: (dextromethorphan-guaifenesin 10-100/5 ml LIQ) (Same as: Geneitussin-DM) Start Date: 04/14/19 Stop Date: 04/18/19 Status: Discontinued Eliquis 2.5 mg, 1 tab, Route: PO, Drug form: TAB, BID, Dosing Weight 58.5, kg, Start nayana e: 04/15/19 17:00:00 CDT, Duration: 30 day, Stop date: 05/15/19 9:00:00 CDT, 0 Notes: Same as: Eliquis Start Date: 04/15/19 Stop Date: 04/18/19 Status: Discontinued esomeprazole 40 mg, Route: PO, Drug form: ECCAP, Daily, Dosing Weight 58.5, kg, Start date: 0 04/16/19 9:00:00 CDT, Duration: 30 day, Stop date: 05/15/19 9:00:00 CDT Start Date: 04/16/19 Stop Date: 04/15/19 Status: Deleted gabapentin 300 mg oral capsule 300 mg, 1 cap, Route: PO, Drug form: CAP, Daily, Dosing Weight 58.5, kg, Start d ate: 04/16/19 9:00:00 CDT, Duration: 30 day, Stop date: 05/15/19 9:00:00 CDT, 0 Notes: (Same as: Neurontin) Start Date: 04/16/19 Stop Date: 04/15/19 Status: Canceled gabapentin 300 mg oral capsule 300 mg, 1 cap, Route: PO, Drug form: CAP, Daily, Dosing Weight 58.5, kg, Start d ate: 04/15/19 11:45:00 CDT, Duration: 30 day, Stop date: 05/15/19 9:00:00 CDT, 0 Notes: (Same as: Neurontin) Start Date: 04/15/19 Stop Date: 04/18/19 Status: Discontinued gabapentin 300 mg oral capsule 300 mg, 1 cap, Route: PO, Drug form: CAP, BID, Dosing Weight 58.5, kg, Start nayana e: 04/18/19 9:00:00 CDT, Duration: 30 day, Stop date: 05/17/19 21:00:00 CDT, 0 Notes: (Same as: Neurontin) Start Date: 04/18/19 Stop Date: 04/18/19 Status: Discontinued hydrochlorothiazide 12.5 mg, 1 tab, Route: PO, Drug form: TAB, Bedtime, Start date: 04/16/19 9:00:00 CDT, Stop date: 05/15/19 21:00:00 CDT, 0 Notes: (Same as: Hydrodiuril). Give with food. Start Date: 04/16/19 Stop Date: 04/18/19 Status: Discontinued hydrochlorothiazide-losartan 12.5 mg-50 mg oral tablet 1 tab, PO, Daily, 0 Refill(s) Start Date: 04/15/19 Status: Ordered hydrochlorothiazide-losartan 12.5 mg-50 mg oral tablet 1 tab, Route: PO, Drug Form: TAB, Dosing Weight 58.5, kg, Daily, Start date: 9:00:00 CDT, Duration: 30 day, Stop date: 05/15/19 9:00:00 CDT Start Date: 04/16/19 Stop Date: 04/15/19 Status: Deleted isosorbide mononitrate 30 mg, 1 tab, Route: PO, Drug form: ERTAB, QAM, Dosing Weight 58.5, kg, Start da te: 04/16/19 9:00:00 CDT, Duration: 30 day, Stop date: 05/15/19 9:00:00 CDT, 0 Notes: (Same as:Imdur)"Do Not Crush" Take on empty stomach/ full glass of water . Do not crush Start Date: 04/16/19 Stop Date: 04/15/19 Status: Canceled isosorbide mononitrate 30 mg, 1 tab, Route: PO, Drug form: ERTAB, QAM, Dosing Weight 58.5, kg, Start da te: 04/15/19 11:47:00 CDT, Duration: 30 day, Stop date: 05/15/19 9:00:00 CDT, 0 Notes: (Same as:Imdur)"Do Not Crush" Take on empty stomach/ full glass of water . Do not crush Start Date: 04/15/19 Stop Date: 04/18/19 Status: Discontinued isosorbide mononitrate 30 mg oral tablet, extended release 30 mg=1 tab, PO, QAM, 0 Refill(s) Start Date: 04/15/19 Status: Ordered Levaquin 500 mg oral tablet 500 mg=1 tab, PO, Q24H, X 10 day, # 10 tab, 0 Refill(s), Pharmacy: [facility] #[id number] Start Date: 04/18/19 Stop Date: 04/28/19 Status: Ordered levothyroxine 25 microgram, 1 tab, Route: PO, Drug form: TAB, [id number], Dosing Weight 58.5, kg, Start date: 04/16/19 6:30:00 CDT, Duration: 30 day, Stop date: 05/15/19 6:30:00 CDT, 0 Notes: Take 1 hour before or 2 hours after meal; Enteral feeds may interefere wi th the absorption of this medication. (Same as:Levothroid) Start Date: 04/16/19 Stop Date: 04/18/19 Status: Discontinued Lidoderm 5% topical film (patch) 1 patch, Route: TOP, Q24H, Drug form: FILM, Start date: 04/15/19 12:00:00 CDT, D uration: 30 day, Stop date: 05/14/19 12:00:00 CDT, 0 Start Date: 04/15/19 Stop Date: 04/18/19 Status: Discontinued Lopressor 50 mg, 1 tab, Route: PO, Drug form: ERTAB, Daily, Dosing Weight 58.5, kg, Start date: 04/16/19 9:00:00 CDT, Duration: 30 day, Stop date: 05/15/19 9:00:00 CDT, 0 Notes: (Same as: Toprol XL) May split tab, but do not crush. Start Date: 04/16/19 Stop Date: 04/15/19 Status: Canceled Lopressor 50 mg, 1 tab, Route: PO, Drug form: ERTAB, Daily, Dosing Weight 58.5, kg, Start date: 04/15/19 11:45:00 CDT, Duration: 30 day, Stop date: 05/15/19 9:00:00 CDT, 0 Notes: (Same as: Toprol XL) May split tab, but do not crush. Start Date: 04/15/19 Stop Date: 04/18/19 Status: Discontinued meclizine 12.5 mg oral tablet 12.5 mg=1 tab, PO, BID, 0 Refill(s) Start Date: 04/15/19 Status: Ordered melatonin 3 mg, 1 tab, Route: PO, Drug form: TAB, Bedtime, Dosing Weight 58.5, kg, PRN Sle ep, Start date: 04/15/19 11:19:00 CDT, Duration: 30 day, Stop date: 05/15/19 11: 18:00 CDT, 0 Notes: (Same as: Melatonin) Start Date: 04/15/19 Stop Date: 04/18/19 Status: Discontinued metoprolol 50 mg oral tablet, extended release 50 mg=1 tab, PO, Daily, 0 Refill(s) Start Date: 04/15/19 Stop Date: 04/18/19 Status: Discontinued Myrbetriq 25 mg oral tablet, extended release 25 mg, 1 tab, Route: PO, Drug form: ERTAB, Daily, Dosing Weight 58.5, kg, Start date: 04/16/19 9:00:00 CDT, Duration: 30 day, Stop date: 05/15/19 9:00:00 CDT Start Date: 04/16/19 Stop Date: 04/16/19 Status: Deleted Myrbetriq 25 mg tab Pt's Own Med Myrbetriq 25 mg tab Pt's Own Med, 25 mg, Drug form: MISC, Route: PO, Daily, 04/17/19 9:00:00 CDT, Duration: 30 day, Stop date: 05/16/19 9:00:00 CDT, 0 Start Date: 04/17/19 Stop Date: 04/18/19 Status: Discontinued Nitrostat 0.4 mg sublingual tablet 0.4 mg, 1 tab, Route: SL, Drug form: TAB, Q5Min, Dosing Weight 58.5, kg, PRN Xi st Pain, Start date: 04/15/19 11:19:00 CDT, Duration: 30 day, Stop date: 11:18:00 CDT, 0 Notes: (Same as:Nitroquick, Nitrostat)"Do Not Crush" Sublingual tablet Start Date: 04/15/19 Stop Date: 04/18/19 Status: Discontinued predniSONE 5 mg, 2 tab, Route: PO, Drug form: TAB, Daily, Dosing Weight 58.5, kg, Start nayana e: 04/16/19 9:00:00 CDT, Duration: 30 day, Stop date: 05/15/19 9:00:00 CDT, 0 Notes: Take with food. Start Date: 04/16/19 Stop Date: 04/18/19 Status: Discontinued Protonix 40 mg, 1 tab, Route: PO, Drug form: ECTAB, Daily, Start date: 04/15/19 11:45:00 CDT, Duration: 30 day, Stop date: 05/15/19 9:00:00 CDT, 0 Notes: Tablet should not be chewed or crushed.(Same as: Protonix) Start Date: 04/15/19 Stop Date: 04/18/19 Status: Discontinued Protonix 40 mg, 1 tab, Route: PO, Drug form: ECTAB, Daily, Start date: 04/16/19 9:00:00 C DT, Duration: 30 day, Stop date: 05/15/19 9:00:00 CDT, 0 Notes: Tablet should not be chewed or crushed.(Same as: Protonix) Start Date: 04/16/19 Stop Date: 04/15/19 Status: Canceled remove patch 1 patch, Route: TOP, Q24H, Drug form: ERFILM, Start date: 04/16/19 0:00:00 CDT, Duration: 30 day, Stop date: 05/15/19 0:00:00 CDT, 0 Start Date: 04/16/19 Stop Date: 04/18/19 Status: Discontinued Rocephin 1 gm, Route: IVPB, Drug form: PDR/INJ, [id number], Dosing Weight 58.5, kg, Start da te: 04/15/19 8:00:00 CDT, Duration: 10 day, Stop date: 04/24/19 8:00:00 CDT, ABX Indication: Pneumonia Start Date: 04/15/19 Stop Date: 04/15/19 Status: Discontinued Rocephin + sterile water 10 mL 1 gm, Route: IVP, [id number], Dosing Weight 58.5, kg, Start date: 04/16/19 4:00:00 CDT, Duration: 10 day, Stop date: 04/25/19 4:00:00 CDT, ABX Indication: Pneumoni a, 0 Notes: (Same As: Rocephin).Use with 100 mL NS and infuse over 30 min MEDICA TION WASTE Product Size: 1000 mgProduct Wasted: ___ mg Start Date: 04/16/19 Stop Date: 04/18/19 Status: Discontinued Saline Flush 0.9% 10 ml, Route: IVP, Drug Form: INJ, Dosing Weight 54.545, kg, Q12H, Start date: 0 04/14/19 21:00:00 CDT, Duration: 30 day, Stop date: 05/14/19 9:00:00 CDT, 0 Notes: (Same as: BD Posiflush) Start Date: 04/14/19 Stop Date: 04/18/19 Status: Discontinued Saline Flush 0.9% 10 ml, Route: IVP, Drug Form: INJ, Dosing Weight 54.545, kg, PRN, PRN Line Flush , Start date: 04/14/19 11:23:00 CDT, Duration: 30 day, Stop date: 05/14/19 11:22 :00 CDT, 0 Notes: (Same as: BD Posiflush) Start Date: 04/14/19 Stop Date: 04/18/19 Status: Discontinued sertraline 25 mg, 0.5 tab, Route: PO, Drug form: TAB, Bedtime, Dosing Weight 58.5, kg, Star t date: 04/15/19 11:45:00 CDT, Stop date: 05/15/19 21:00:00 CDT, 0 Notes: (Same as: Zoloft) Start Date: 04/15/19 Stop Date: 04/18/19 Status: Discontinued sertraline 25 mg, 0.5 tab, Route: PO, Drug form: TAB, Daily, Dosing Weight 58.5, kg, Start date: 04/16/19 9:00:00 CDT, Duration: 30 day, Stop date: 05/15/19 9:00:00 CDT, 0 Notes: (Same as: Zoloft) Start Date: 04/16/19 Stop Date: 04/15/19 Status: Canceled sertraline 25 mg oral tablet 25 mg=1 tab, PO, Daily, 0 Refill(s) Start Date: 04/15/19 Stop Date: 04/18/19 Status: Discontinued Tessalon 200 mg oral capsule 200 mg=1 cap, PO, TID, X 10 day, # 30 cap, 0 Refill(s), Pharmacy: [facility] #[id number] Start Date: 04/18/19 Stop Date: 04/28/19 Status: Ordered Tessalon Perles 200 mg, 2 cap, Route: PO, Drug form: CAP, TID, Dosing Weight 58.5, kg, Start nayana e: 04/16/19 8:00:00 CDT, Duration: 30 day, Stop date: 05/16/19 0:00:00 CDT, 0 Notes: (Same As: Tessalon Perles)"Do Not Crush" Start Date: 04/16/19 Stop Date: 04/18/19 Status: Discontinued tramadol 50 mg oral tablet 50 mg, 1 tab, Route: PO, Drug form: TAB, Q12H, Dosing Weight 58.5, kg, PRN Pain Score 4-6, Start date: 04/15/19 11:19:00 CDT, Duration: 30 day, Stop date: 05/15 11:18:00 CDT, 0 Notes: Not to exceed 400mg/day. (Same As: Ultram) Start Date: 04/15/19 Stop Date: 04/18/19 Status: Discontinued Tylenol 650 mg, 2 tab, Route: PO, Drug form: TAB, Q4H, Dosing Weight 58.5, kg, PRN Pain 1-3/Temp > 100.4 F, Start date: 04/15/19 16:48:00 CDT, Duration: 30 day, Stop date: 05/15/19 16:47:00 CDT, 0 Notes: Do not exceed 4 gm/day. (Same as: Tylenol) Start Date: 04/15/19 Stop Date: 04/18/19 Status: Discontinued Xarelto 10 mg oral tablet 10 mg=1 tab, PO, Daily, 0 Refill(s) Start Date: 04/15/19 Status: Ordered Zithromax 500 mg, Route: IVPB, [id number], Dosing Weight 58.5, kg, Start date: 04/15/19 8:00: 00 CDT, Duration: 3 day, Stop date: 04/17/19 8:00:00 CDT, ABX Indication: Pneumo nicholas Start Date: 04/15/19 Stop Date: 04/15/19 Status: Discontinued Zithromax + Sodium Chloride 0.9% IV 250 mL 500 mg, Route: IVPB, ONCE, Dosing Weight 54.545, kg, Priority: Routine, Start da te: 04/14/19 18:00:00 CDT, Stop date: 04/14/19 18:00:00 CDT, ABX Indication: Pne umonia, 0 Notes: (Same As: Zithromax IV) Start Date: 04/14/19 Stop Date: 04/14/19 Status: Completed Zithromax + Sodium Chloride 0.9% IV 250 mL 500 mg, Route: IVPB, [id number], Dosing Weight 58.5, kg, Start date: 04/15/19 18:00 :00 CDT, Duration: 3 day, Stop date: 04/17/19 21:00:00 CDT, ABX Indication: Pneu monia, 0 Notes: (Same As: Zithromax IV) Start Date: 04/15/19 Stop Date: 04/17/19 Status: Completed Results 1 2 3 Most recent to oldest [Reference Range]: 0.09 ng/mL (04/14/19 5:04 PM) Procalcitonin Lvl [0.00-0.10 ng/mL] 4.9 K/CMM (04/17/19 5:03 AM) 7.7 K/CMM (04/16/19 5:48 AM) 10.5 K/CMM *HI* (04/14/19 5:04 PM) Neutrophils # [1.5-8.1 K/CMM] 1.5 K/CMM (04/17/19 5:03 AM) 1.3 K/CMM (04/16/19 5:48 AM) 1.2 K/CMM (04/14/19 5:04 PM) Lymphocytes # [1.0-5.5 K/CMM] 0.7 K/CMM (04/17/19 5:03 AM) 0.9 K/CMM *HI* (04/16/19 5:48 AM) 1.0 K/CMM *HI* (04/14/19 5:04 PM) Monocytes # [0.0-0.8 K/CMM] 0.2 K/CMM (04/17/19 5:03 AM) 0.2 K/CMM (04/16/19 5:48 AM) Eosinophils # [0.0-0.5 K/CMM] Urine *NA* (04/14/19 9:20 PM) Source Strep Negative (04/14/19 9:20 PM) Strep pneumoniae Ag [Negative] 44 mL/min/1.73m2 1 *NA* (04/17/19 5:03 AM) 29 mL/min/1.73m2 2 *NA* (04/16/19 5:48 AM) 37 mL/min/1.73m2 3 *NA* (04/14/19 5:04 PM) eGFR 0.7 (04/14/19 5:04 PM) A/G Ratio [0.7-1.6] 3.0 g/dL *LOW* (04/14/19 5:04 PM) Albumin Lvl [3.5-5.0 g/dL] 91 unit/L (04/14/19 5:04 PM) Alk Phos [39-136 unit/L] 39 unit/L (04/14/19 5:04 PM) ALT [0-65 unit/L] 9.8 mEq/L *LOW* (04/17/19 5:03 AM) 14.1 mEq/L (04/16/19 5:48 AM) 13.9 mEq/L (04/14/19 5:04 PM) AGAP [10.0-20.0 mEq/L] 35 unit/L (04/14/19 5:04 PM) AST [0-37 unit/L] 21 (04/14/19 5:04 PM) B/C Ratio [6-25] 0.5 % (04/17/19 5:03 AM) 0.2 % (04/16/19 5:48 AM) 0.4 % (04/14/19 5:04 PM) Basophils [0.0-1.0 %] 25 mg/dL *HI* (04/17/19 5:03 AM) 32 mg/dL *HI* (04/16/19 5:48 AM) 27 mg/dL *HI* (04/14/19 5:04 PM) BUN [7-22 mg/dL] 7.9 mg/dL *LOW* (04/17/19 5:03 AM) 8.0 mg/dL *LOW* (04/16/19 5:48 AM) 8.6 mg/dL (04/14/19 5:04 PM) Calcium Lvl [8.5-10.5 mg/dL] 104 mEq/L (04/17/19 5:03 AM) 106 mEq/L (04/16/19 5:48 AM) 100 mEq/L (04/14/19 5:04 PM) Chloride Lvl [95-109 mEq/L] 26 mEq/L (04/17/19 5:03 AM) 25 mEq/L (04/16/19 5:48 AM) 28 mEq/L (04/14/19 5:04 PM) CO2 [24-32 mEq/L] 1.11 mg/dL (04/17/19 5:03 AM) 1.56 mg/dL *HI* (04/16/19 5:48 AM) 1.28 mg/dL (04/14/19 5:04 PM) Creatinine Lvl [0.50-1.40 mg/dL] 2.4 % (04/17/19 5:03 AM) 2.2 % (04/16/19 5:48 AM) 0.1 % (04/14/19 5:04 PM) Eosinophils [0.0-4.0 %] 4.4 g/dL *HI* (04/14/19 5:04 PM) Globulin [2.7-4.2 g/dL] 122 mg/dL *HI* (04/17/19 5:03 AM) 112 mg/dL *HI* (04/16/19:48 AM) 118 mg/dL *HI* (04/14/19 5:04 PM) Glucose Lvl [70-99 mg/dL] 24.2 % *LOW* (04/17/19 5:03 AM) 26.0 % *LOW* (04/16/19 5:48 AM) 30.9 % *LOW* (04/14/19 5:04 PM) Hct [36.0-48.0 %] 8.1 g/dL *LOW* (04/17/19 5:03 AM) 8.6 g/dL *LOW* (04/16/19:48 AM) 10.3 g/dL *LOW* (04/14/19 5:04 PM) Hgb [12.0-16.0 g/dL] 3.8 mEq/L (04/17/19 5:03 AM) 4.1 mEq/L (04/16/19:48 AM) 4.9 mEq/L (04/14/19 5:04 PM) Potassium Lvl [3.5-5.1 mEq/L] 1.1 mMol/L (04/14/19 5:04 PM) Lactic Acid Lvl [0.5-2.2 mMol/L] 20.5 % (04/17/19 5:03 AM) 12.5 % *LOW* (04/16/19 5:48 AM) 9.0 % *LOW* (04/14/19 5:04 PM) Lymphocytes [20.0-40.0 %] 31.3 pg *HI* (04/17/19 5:03 AM) 31.6 pg *HI* (04/16/19 5:48 AM) 31.5 pg *HI* (04/14/19:04 PM) MCH [27.0-31.0 pg] 33.5 g/dL (04/17/19 5:03 AM) 33.2 g/dL (04/16/19 5:48 AM) 33.4 g/dL (04/14/19 5:04 PM) MCHC [32.0-36.0 g/dL] 93.4 fL (04/17/19 5:03 AM) 95.1 fL (04/16/19 5:48 AM) 94.2 fL (04/14/19 5:04 PM) MCV [80.0-98.0 fL] 9.6 % (04/17/19 5:03 AM) 8.8 % (04/16/19 5:48 AM) 8.1 % (04/14/19 5:04 PM) Monocytes [2.0-12.0 %] 7.3 fL *LOW* (04/17/19 5:03 AM) 7.5 fL (04/16/19 5:48 AM) 7.0 fL *LOW* (04/14/19 5:04 PM) MPV [7.4-10.4 fL] 136 mEq/L (04/17/19 5:03 AM) 141 mEq/L (04/16/19 5:48 AM) 137 mEq/L (04/14/19 5:04 PM) Sodium Lvl [135-145 mEq/L] 263 K/CMM (04/17/19 5:03 AM) 237 K/CMM (04/16/19 5:48 AM) 275 K/CMM (04/14/19 5:04 PM) Platelet [133-450 K/CMM] 67.0 % (04/17/19 5:03 AM) 76.3 % *HI* (04/16/19 5:48 AM) 82.4 % *HI* (04/14/19 5:04 PM) Segs [45.0-75.0 %] 7.4 g/dL (04/14/19 5:04 PM) Total Protein [6.4-8.4 g/dL] 2.59 M/CMM *LOW* (04/17/19 5:03 AM) 2.73 M/CMM *LOW* (04/16/19 5:48 AM) 3.28 M/CMM *LOW* (04/14/19 5:04 PM) RBC [4.20-5.40 M/CMM] 12.9 % (04/17/19 5:03 AM) 13.2 % (04/16/19 5:48 AM) 13.3 % (04/14/19 5:04 PM) RDW [11.5-14.5 %] 0.3 mg/dL (04/14/19 5:04 PM) Bili Total [0.2-1.3 mg/dL] 7.4 K/CMM (04/17/19 5:03 AM) 10.0 K/CMM (04/16/19 5:48 AM) 12.8 K/CMM *HI* (04/14/19 5:04 PM) WBC [3.7-10.4 K/CMM] Negative (04/14/19 5:43 PM) Influenza A PCR [Negative] Negative (04/14/19 5:43 PM) Influenza B PCR [Negative] Negative (04/14/19 5:43 PM) RSV PCR [Negative] Nasophrngl Swb *NA* (04/14/19 5:43 PM) Source Respiratory Panel PCR 1Result Comment: The eGFR is calculated using [...] the estimated BMI. Microbiology Reports TEST: Culture: Respiratory w/Gram Stain STATUS: Auth (Verified) BODY SITE: Throat SOURCE: Sputum COLLECTED DATE/TIME: 04/17/19 11:44 AM FINAL REPORT Normal Respiratory Megan Isolated STAIN REPORT Gram Stain Performed By: [facility] Immunizations Given and Recorded Vaccine Date Status [...]
--- OUTSIDE RECORDS SUMMARY | 2019-05-23 06:45 | XMS REPORT ---
Author Author Alexey Cruz Organization [employer] Address Unknown Phone Unavailable Care Team Providers Care Mailing Section Clerk Name Role Phone Alexey Cruz CP Unavailable Allergies No Known Allergies Problems Problem Type Condition Code Onset Dates Condition Status Problem Cardiomyopathy, unspecified I42.9 Active Problem Polyneuropathy G62.9 Active Problem Occlusion and stenosis of unspecified carotid artery I65.29 Active Problem Carotid stenosis, bilateral I65.23 Active Problem Depressive disorder, 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 Active Problem Carotid stenosis, right I65.21 Active Problem 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 Problem Symptomatic menopausal or female climacteric states N95.1 Active Problem Atherosclerosis of both carotid arteries I65.23 Active Problem Anxiety F41.9 Active Problem Pure hypercholesterolemia E78.0 Active Problem Hypertensive crisis I16.9 Active Problem 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 Problem Coronary atherosclerosis I25.10 Active Problem Peripheral neuropathic pain G62.9 Active Problem History of colonic polyps Z86.010 Active Problem Generalized osteoarthrosis, 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 Active Problem Bilateral carotid bruits R09.89 Active Problem Chronic anxiety F41.9 Active Problem Benign essential hypertension I10 Active Problem Acute gastric ulcer K25.3 Active Problem Polymyalgia rheumatica M35.3 Active Problem Other and unspecified hyperlipidemia E78.5 Active Medications Medication Code System Code Instructions Start Date End Date Status Dosage Zoloft [facility] [place] [address]-43 100 MG by mouth Once a day May 27, 2009 Inactive 1 tablet Paxil [facility] [place] [address]-17 10 MG Orally Once a day Jul 05, 2017 Active 1 tablet in the morning Results No Known Results Summary Purpose [employer] Submission
--- OUTSIDE RECORDS SUMMARY | 2019-05-23 06:45 | XMS REPORT ---
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 Assessment Depressive disorder, 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 Active Problem Acute gastric ulcer K25.3 Active Assessment Coronary atherosclerosis I25.10 Active Problem Other and unspecified hyperlipidemia E78.5 Active Assessment Hypertensive crisis I16.9 Active Problem Cardiomyopathy, unspecified I42.9 Active Problem Polyneuropathy G62.9 Active Problem Occlusion and stenosis of unspecified carotid artery I65.29 Active Problem Carotid stenosis, bilateral I65.23 Active Problem Carotid stenosis, right I65.21 Active Problem Depressive disorder, 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 Active Problem 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 Problem Atherosclerosis of both carotid arteries I65.23 Active Problem Symptomatic menopausal or female climacteric states N95.1 Active Problem Anxiety F41.9 Active Problem Pure hypercholesterolemia E78.0 Active Problem Hypertensive crisis I16.9 Active Problem 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 Problem Coronary atherosclerosis I25.10 Active Problem Peripheral neuropathic pain G62.9 Active Problem History of colonic polyps Z86.010 Active Problem Generalized osteoarthrosis, 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 Active Problem Bilateral carotid bruits R09.89 Active Problem Chronic anxiety F41.9 Active Problem Benign essential hypertension I10 Active Problem Polymyalgia rheumatica M35.3 Active Medications Medication Code System Code Instructions Start Date End Date Status Dosage Metoprolol Succinate NDC 0 50 MG Orally daily December 04, 2016 Jun 06, 2017 Active 1 tablet isosorbide mononitrate ER 30 mg Tab NDC 0 30 mg mg by mouth every day (qd) Jul 17, 2011 Active 1 tablet losartan-hydrochlorothiazide 50 mg-12.5 mg Tab NDC 0 50-12.5 mg mg by mouth once a day Jul 17, 2011 Oct 26, 2017 Active 1 tablet Sucralfate [facility] [address]-28 1 GM Orally Twice a day Active 1 tablet on an empty stomach Hydrochlorothiazide [facility] 02981266408 12.5 MG Orally Once a day Active 1 capsule Nitrostat [facility] [address]-81 0.4 MG Sublingual as needed (prn) December 15, 2014 Active as directed Metoprolol Succinate ER [facility] [address]-35 25 Orally Once a day Active 1 tablet Levothyroxine Sodium [facility] [address]-89 50 MCG Orally Once a day Jun 01, 2016 Active 1 tablet Zoloft [facility] [address]-71 EQ 50MG BASE by mouth Once a day Active 2 TABLETS Omeprazole [facility] [address]-17 40 MG Orally Once a day Active 1 capsule PredniSONE [facility] [address]-10 5 MG Orally Once a day Active 1 tablet Losartan Potassium [facility] [address]-15 50 MG Orally Once a day December 04, 2016 Active 1 tablet Gabapentin [facility] 02925445213 600 Active TAKE 1 TABLET BY MOUTH TWICE DAILY Vital Signs Date/Time: December 04, 2016 BMI 25.25 Index Weight 127.6 lbs Height 59.6 in Temperature 97.7 F Cardiac Monitoring Heart Rate 80 /min Blood Pressure Diastolic 70,149 mm Hg Blood Pressure Systolic 193 mm Hg Results No Known Results Summary Purpose [employer] Submission
--- OUTSIDE RECORDS SUMMARY | 2019-05-23 06:45 | XMS REPORT ---
Author Author Alexey Cruz Organization [employer] Address Unknown Phone Unavailable Care Team Providers Care School Admissions Representative Name Role Phone Alexey Cruz CP Unavailable Allergies, Adverse Reactions, Alerts Substance Reaction Event Type Sulfa Info Not Available Drug Allergy Problems Problem Type Condition Code Onset Dates Condition Status Assessment Acute deep vein thrombosis (DVT) of popliteal vein of left lower extremity I82.432 Active Assessment Recurrent UTI N39.0 Active Assessment Left leg swelling M79.89 Active Assessment Polymyalgia rheumatica M35.3 Active Assessment Coronary atherosclerosis I25.10 Active Problem Acute gastric ulcer K25.3 Active Assessment Benign essential hypertension I10 Active Problem Other and unspecified hyperlipidemia E78.5 Active Assessment Closed fracture of one rib of right side with routine healing, subsequent encounter S22.31XD Active Problem Cardiomyopathy, unspecified I42.9 Active Problem [...] Instructions Start Date End Date Status Dosage Losartan Potassium [facility] [address]-58 50 MG Orally Once a day December 04, 2016 Active 1 tablet Metoprolol Succinate ER [facility] 79571849866 50 Active TAKE 1 TABLET BY MOUTH ONCE A DAY Nitrostat NDC [address]-13 0.4 MG Sublingual as needed (prn) December 15, 2014 Active as directed Hydrochlorothiazide [facility] 79522941679 12.5 MG Orally Once a day Active 1 capsule PredniSONE [facility] [address]-76 5 MG Orally Once a day Active 1 tablet Levothyroxine Sodium [facility] [address]-12 25 MCG Orally Once a day Jun 01, 2016 Active 1/2 half tablet Tylenol/Codeine #3 [facility] [address]-39 300-30 MG Orally every 6 hrs February 27, 2017 March 14, 2017 Active 1 tablet as needed Cipro [facility] [address]-62 250 MG Orally daily February 27, 2017 Apr 29, 2017 Active 1 tablet Omeprazole [facility] [address]-65 40 MG Orally Once a day Active 1 capsule Celexa [facility] [address]-92 10 MG Orally Once a day December 21, 2016 Active 2 tablets isosorbide mononitrate ER 30 mg Tab NDC 0 30 mg mg by mouth every day (qd) Jul 17, 2011 Active 1 tablet Spironolactone [facility] [address]-59 25 MG Orally Twice a day February 27, 2017 March 29, 2017 Active 1 tablet Gabapentin [facility] 65779711339 600 Active TAKE 1 TABLET BY MOUTH TWICE DAILY Zoloft [facility] [address]-64 100 MG by mouth Once a day May 27, 2009 Active 1 tablet Sucralfate [facility] [address]-70 1 GM Orally Twice a day Active 1 tablet on an empty stomach Vital Signs Date/Time: February 27, 2017 BMI 25.97 Index Weight 131.2 lbs Height 59.6 in Temperature 98.2 F Cardiac Monitoring Heart Rate 65 /min Blood Pressure Diastolic 43 mm Hg Blood Pressure Systolic 132 mm Hg Results No Known Results Summary Purpose [employer] Submission
--- OUTSIDE RECORDS SUMMARY | 2019-05-23 06:45 | XMS REPORT ---
Author Author Alexey Cruz Organization [employer] Address Unknown Phone Unavailable Care Team Providers Care Nylon Machine Operator Name Role Phone Alexey Cruz CP Unavailable [...] Start Date End Date Status Dosage Zoloft [facility] [address]-12 100 MG by mouth Once a day May 27, 2009 Active 1 tablet Results No Known Results Summary Purpose [employer] Submission
--- OUTSIDE RECORDS SUMMARY | 2019-05-23 06:45 | XMS REPORT ---
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 Problem Peripheral neuropathic pain G62.9 Active Problem Carotid stenosis, right I65.21 Active Problem Ataxia R27.0 Active Problem Atherosclerosis of both carotid arteries I65.23 Active Problem Chronic a-fib I48.2 Active Problem Multiple falls R29.6 Active Problem Coronary atherosclerosis I25.10 Active Problem History of colonic polyps Z86.010 Active Problem Other chronic pain G89.29 Active Problem 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 Problem Macular degeneration (senile) of retina H35.30 Active Problem Urinary incontinence in female R32 Active Problem Odynophagia R13.10 Active Problem Neuralgia M79.2 Active Problem Polymyalgia rheumatica M35.3 Active Problem Bilateral carotid bruits R09.89 Active Problem Depressive disorder, 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 Active Problem Generalized osteoarthrosis, 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 Active Problem Other and unspecified hyperlipidemia E78.5 Active Problem Polyneuropathy G62.9 Active Problem Chronic anxiety F41.9 Active Problem Acute gastric ulcer K25.3 Active Medications Medication Code System Code Instructions Start Date End Date Status Dosage Eliquis [facility] 61393951746 2.5 MG Orally twice a day (bid) December 16, 2018 Active as directed Results No Known Results Summary Purpose [employer]Works Submission
--- OUTSIDE RECORDS SUMMARY | 2019-05-23 06:45 | XMS REPORT ---
Author Author Alexey Cruz Organization [employer] Address Unknown Phone Unavailable Care Team Providers Care Bar Staff Name Role Phone Alexey Cruz CP Unavailable [...] Problem Acute gastric ulcer K25.3 Active Assessment Urinary tract infection without hematuria, site unspecified N39.0 Active Problem Polymyalgia rheumatica M35.3 Active Problem Other and unspecified hyperlipidemia E78.5 Active Medications Medication Code System Code Instructions Start Date End Date Status Dosage Ciprofloxacin HCl [facility] [address]-55 250 MG Orally Twice a day December 21, 2016 January 10, 2017 Active 1 tablet Results No Known Results Summary Purpose [employer] Submission
--- OUTSIDE RECORDS SUMMARY | 2019-05-23 06:45 | XMS REPORT ---
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 Assessment Other and unspecified hyperlipidemia E78.5 Active Problem Acute gastric ulcer K25.3 Active Assessment Polymyalgia rheumatica M35.3 Active Problem Other and unspecified hyperlipidemia E78.5 Active Assessment Benign essential hypertension I10 Active Problem Cardiomyopathy, unspecified I42.9 Active Problem [...] Date End Date Status Dosage Ciprofloxacin HCl [facility] [address]-29 250 MG Orally Twice a day December 21, 2016 January 10, 2017 Active 1 tablet Hydrochlorothiazide [facility] 46002871036 12.5 MG Orally Once a day Active 1 capsule Sucralfate [facility] [address]-70 1 GM Orally Twice a day Active 1 tablet on an empty stomach Celexa [facility] [address]-97 10 MG Orally Once a day December 21, 2016 Active 2 tablets PredniSONE [facility] [address]-35 5 MG Orally Once a day Active 1 tablet Losartan Potassium [facility] [address]-05 50 MG Orally Once a day December 04, 2016 Active 1 tablet Sertraline HCl [facility] [address]-18 50 MG Orally Once a day Active 1 tablet Nitrostat [facility] [address]-59 0.4 MG Sublingual as needed (prn) December 15, 2014 Active as directed Gabapentin [facility] 08959834251 600 Active TAKE 1 TABLET BY MOUTH TWICE DAILY Omeprazole [facility] [address]-22 40 MG Orally Once a day Active 1 capsule isosorbide mononitrate ER 30 mg Tab NDC 0 30 mg mg by mouth every day (qd) Jul 17, 2011 Active 1 tablet Cipro [facility] [address]-99 500 MG Orally TWICE A DAY FOR 10 DAYS Active 1 tablet Levothyroxine Sodium [facility] [address]-42 25 MCG Orally Once a day Jun 01, 2016 Active 1/2 half tablet Metoprolol Succinate ER [facility] 32878545510 50 Active TAKE 1 TABLET BY MOUTH ONCE A DAY losartan-hydrochlorothiazide 50 mg-12.5 mg Tab NDC 0 50-12.5 mg mg by mouth once a day Jul 17, 2011 Oct 26, 2017 Active 1 tablet Vital Signs Date/Time: January 10, 2017 BMI 25.73 Index Weight 130.0 lbs Height 59.6 in Temperature 98.1 F Cardiac Monitoring Heart Rate 58 /min Blood Pressure Diastolic 36 mm Hg Blood Pressure Systolic 133 mm Hg Results No Known Results Summary Purpose [employer]Works Submission
--- OUTSIDE RECORDS SUMMARY | 2019-05-23 06:45 | XMS REPORT ---
Author Author Alexey Cruz Organization [employer] Address Unknown Phone Unavailable Care Team Providers Care Gunstock Spray Unit Adjuster Name Role Phone Alexey Cruz CP Unavailable [...] Problem Acute gastric ulcer K25.3 Active Assessment Recurrent UTI N39.0 Active Problem Polymyalgia rheumatica M35.3 Active Problem Other and unspecified hyperlipidemia E78.5 Active Medications No Known Medications Results No Known Results Summary Purpose [employer]Works Submission
--- OUTSIDE RECORDS SUMMARY | 2019-05-23 06:45 | XMS REPORT ---
Author Author Alexey Cruz Organization [employer] Address Unknown Phone Unavailable Care Team Providers Care Cushion Cover Inspector Name Role Phone Alexey Cruz CP Unavailable Allergies, Adverse Reactions, Alerts Substance Reaction Event Type Sulfa Info Not Available Drug Allergy Problems Problem Type Condition Code Onset Dates Condition Status Assessment Carotid stenosis, bilateral I65.23 Active Assessment Pure hypercholesterolemia E78.0 Active Assessment Chronic anxiety F41.9 Active Assessment Coronary atherosclerosis I25.10 Active Assessment Benign essential hypertension I10 Active Problem Acute gastric ulcer K25.3 Active Assessment Depressive disorder, 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 Active Problem Other and unspecified hyperlipidemia E78.5 Active Assessment Urinary tract infection without hematuria, site unspecified N39.0 Active Problem Cardiomyopathy, unspecified I42.9 Active Problem [...] 2016 Jun 06, 2017 Active 1 tablet Metoprolol Succinate ER NDC 04006954163 50 Active TAKE 1 TABLET BY MOUTH ONCE A DAY isosorbide mononitrate ER 30 mg Tab NDC 0 30 mg mg by mouth every day (qd) Jul 17, 2011 Active 1 tablet Losartan Potassium [facility] [address]-64 50 MG Orally Once a day December 04, 2016 Active 1 tablet Sucralfate [facility] [address]-07 1 GM Orally Twice a day Active 1 tablet on an empty stomach Metoprolol Succinate ER [facility] [address]-80 25 Orally Once a day Active 1 tablet Levothyroxine Sodium [facility] [address]-24 50 MCG Orally Once a day Jun 01, 2016 Active 1 tablet [address]E [facility] [address]-67 5 MG Orally Once a day Active 1 tablet [address]ap[address] [facility] 59822240264 600 Active TAKE 1 TABLET BY MOUTH TWICE DAILY Celexa [facility] [address]-71 10 MG Orally Once a day December 21, 2016 Active 2 tablets Nitrostat [facility] [address]-16 0.4 MG Sublingual as needed (prn) December 15, 2014 Active as directed Zoloft [facility] [address]-10 EQ 50MG BASE by mouth Once a day December 21, 2016 Inactive 2 TABLETS Hydrochlorothiazide [facility] 85774290056 12.5 MG Orally Once a day Active 1 capsule losartan-hydrochlorothiazide 50 mg-12.5 mg Tab NDC 0 50-12.5 mg mg by mouth once a day Jul 17, 2011 Oct 26, 2017 Active [address] [facility] [address]-72 500 MG Orally TWICE A DAY FOR 10 DAYS Active 1 tablet Ciprofloxacin HCl [facility] [address]-60 250 MG Orally Twice a day December 21, 2016 January 10, 2017 Active 1 tablet Omeprazole [facility] [address]-55 40 MG Orally Once a day Active 1 capsule Vital Signs Date/Time: December 21, 2016 BMI 25.53 Index Weight 129.0 lbs Height 59.6 in Temperature 97.7 F Cardiac Monitoring Heart Rate 58 /min Blood Pressure Diastolic 43 mm Hg Blood Pressure Systolic 140 mm Hg Results No Known Results Summary Purpose eClinicalWorks Submission
--- OUTSIDE RECORDS SUMMARY | 2019-05-23 06:45 | XMS REPORT ---
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 Problem Atherosclerosis of both carotid arteries I65.23 Active Problem Urinary incontinence in female R32 Active Problem Ataxia R27.0 Active Problem Other chronic pain G89.29 Active Problem Chronic a-fib I48.2 Active Problem Depressive disorder, 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 Active Problem Coronary atherosclerosis I25.10 Active Problem Atrial fibrillation I48.91 Active Problem History of colonic polyps Z86.010 Active Problem Neuralgia M79.2 Active Problem Macular degeneration (senile) of retina H35.30 Active Problem Multiple falls R29.6 Active Problem Odynophagia R13.10 Active Problem Bilateral carotid bruits R09.89 Active Problem Chronic anxiety F41.9 Active Problem Generalized osteoarthrosis, 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 Active Problem Polymyalgia rheumatica M35.3 Active Problem Polyneuropathy G62.9 Active Problem Anxiety F41.9 Active Problem Acute gastric ulcer K25.3 Active Problem Other and unspecified hyperlipidemia E78.5 Active Medications Medication Code System Code Instructions Start Date End Date Status Dosage Isosorbide Mononitrate CR [facility] 12583056739 30 Orally Once a day Active TAKE 1 TABLET BY MOUTH EVERY DAY IN THE MORNING Losartan Potassium-HCTZ [facility] 05006667085 50-12.5 MG Orally Once a day Active TAKE 1 TABLET BY MOUTH EVERY DAY Results No Known Results Summary Purpose eClinicalWorks Submission
--- OUTSIDE RECORDS SUMMARY | 2019-05-23 06:45 | XMS REPORT | Summary of Care ---
Author Author [facility] Organization [facility] Address Unknown Phone Unavailable Encounter HQ Cesarr_jakob(FIN) [id number] Date(s): 01/31/18 - 01/31/18 [facility] [address] [place] [address]- Discharge Disposition: Home or Self Care Attending Physician: Kathryn Greene MD Referring Physician: Kathryn Greene MD Vital Signs No data available for [...]
--- OUTSIDE RECORDS SUMMARY | 2019-05-23 06:45 | XMS REPORT | Summary of Care ---
Author Organization Unknown Address Unknown Phone Unavailable Encounter HQ Marilynntr_jakob(ANGELITO) [id number] Date(s): 02/09/14 - 02/09/14 [facility] [address] Discharge Disposition: Home Physician Attending: Alexey Cruz MD Physician Admitting: Alexey Cruz MD Reason for Visit 466.0 Problem List No data available for this section Allergies, Adverse Reactions, Alerts No data available for this section Medications No data available for this section Medications Administered During Your Visit No data available for this section Immunizations No data available for this section
--- OUTSIDE RECORDS SUMMARY | 2019-05-23 06:45 | XMS REPORT ---
Author Author Alexey Cruz Organization [employer] Address Unknown Phone Unavailable Care Team Providers Care Kindergarten Paraprofessional Name Role Phone Alexey Cruz CP Unavailable [...] Instructions Start Date End Date Status Dosage Pyridium [facility] [address]-19 200 MG Orally twice a day (bid) Jul 13, 2017 Jul 20, 2017 Active 1 tablet after meals Results No Known Results Summary Purpose eClinicalWorks Submission
--- OUTSIDE RECORDS SUMMARY | 2019-05-23 06:45 | XMS REPORT ---
Author Author Alexey Cruz Organization [employer] Address Unknown Phone Unavailable Care Team Providers Care Corn Picker Name Role Phone Alexey Cruz CP Unavailable [...] Instructions Start Date End Date Status Dosage [facility] [address]-25 500 mg Orally Twice a day Nov 15, 2015 November 23, 2016 Active 1 tablet Results No Known Results Summary Purpose [employer]ClinicalWorks Submission
--- OUTSIDE RECORDS SUMMARY | 2019-05-23 06:45 | XMS REPORT | Summary of Care ---
Author Author [facility] Organization [facility] Address Unknown Phone Unavailable Encounter HQ Cesarr_jakob(FIN) [id number] Date(s): 01/31/18 - 01/31/18 [facility] [address] [place] [address]- [phone] Discharge Disposition: Home or Self Care Attending [...]
--- OUTSIDE RECORDS SUMMARY | 2019-05-23 06:46 | XMS REPORT ---
Author Author Alexey Cruz Organization [employer] Address Unknown Phone Unavailable Care Team Providers Care Vigoureux Printer Name Role Phone Alexey Cruz CP Unavailable [...] Instructions Start Date End Date Status Dosage Macrobid [facility] [address]-83 100 MG Orally every 12 hrs May 24, 2017 Jun 03, 2017 Active 1 capsule with food Results No Known Results Summary Purpose [employer]Works Submission
--- OUTSIDE RECORDS SUMMARY | 2019-05-23 06:46 | XMS REPORT ---
Author Author Alexey Cruz Organization [employer] Address Unknown Phone Unavailable Care Team Providers Care Engineering Secretary Name Role Phone Alexey Cruz CP Unavailable Allergies No Known Allergies Problems Problem Type Condition Code Onset Dates Condition Status Problem Acute gastric ulcer K25.3 Active Assessment Deep vein thrombosis (DVT) of other vein of left lower extremity I82.492 Active Problem Other and unspecified hyperlipidemia E78.5 Active Assessment UTI (urinary tract infection) N39.0 Active Problem Cardiomyopathy, unspecified I42.9 Active [...] Instructions Start Date End Date Status Dosage Meclizine HCl [facility] [address]-29 12.5 MG Orally twice a day (bid) as needed (prn) March 20, 2017 Active 1 tablet Levothyroxine Sodium [facility] [address]-29 25 MCG Orally Once a day Jun 01, 2016 Active 1 tablet Results No Known Results Summary Purpose [employer]ClinicalWorks Submission
--- OUTSIDE RECORDS SUMMARY | 2019-05-23 06:46 | XMS REPORT ---
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 Assessment History of colonic polyps Z86.010 Active Assessment Coronary atherosclerosis I25.10 Active Problem Other and unspecified hyperlipidemia E78.5 Active Assessment Benign essential hypertension I10 Active Problem Cardiomyopathy, unspecified I42.9 Active Problem Symptomatic menopausal or female climacteric states N95.1 Active Problem Occlusion and stenosis of unspecified carotid artery I65.29 Active Problem Anxiety F41.9 Active Problem Polyneuropathy G62.9 Active Problem Atherosclerosis of both carotid arteries I65.23 Active Problem Carotid stenosis, right I65.21 Active Problem Coronary atherosclerosis I25.10 Active Problem Depressive disorder, 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 Active Problem Ataxia R27.0 Active Problem Generalized osteoarthrosis, 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 Active Problem 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 Problem Pure hypercholesterolemia E78.0 Active Problem Carotid stenosis, bilateral I65.23 Active Problem Hypertensive crisis I16.9 Active Problem 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 20319645772 50 Active TAKE 1 TABLET BY MOUTH ONCE A DAY Meclizine HCl [facility] 84571416207 12.5 MG Orally twice a day (bid) as needed (prn) March 20, 2017 Active [address] [facility] 14641721501 0.4 MG Sublingual as needed (prn) December 15, 2014 Active as directed Levothyroxine Sodium [facility] 74147750028 25 MCG Orally Once a day Jun 01, 2016 Active [address] [facility] 73483992574 40 MG Orally Once a day Active [address] [facility] 52237053042 10 MG Orally Once a day December 21, 2016 Active [address] [facility] 16523980444 600 Active TAKE 1 TABLET BY MOUTH TWICE DAILY Diprolene [facility] 33330063169 0.05 % Externally Once a day Sep 05, 2017 Sep 25, 2017 Active 1 application to affected area Sucralfate [facility] 57698676413 1 GM Orally Twice a day Active 1 tablet on an empty stomach Cipro [facility] 13870918945 250 MG Orally daily April 18, 2017 Oct 15, 2017 Active [address] [facility] 58039070342 20 MG Orally Once a day March 20, 2017 Active 1 tablet with food PredniSONE [facility] 37763420150 5 MG Orally Once a day Active [address] [facility] 57717653024 50 mg Orally Once a day Aug 06, 2017 Oct 05, 2017 Active 1 capsule with food or milk Hydrochlorothiazide [facility] 90570953530 12.5 MG Orally Once a day Active 1 capsule Losartan Potassium [facility] 45650439514 50 MG Orally Once a day December 04, 2016 Active [address] [facility] 19982104163 10 MG Orally Once a day Jul 05, 2017 Active 1 tablet in the morning Vital Signs Date/Time: Sep 05, 2017 BMI 25.59 Index Weight 129.3 lbs Height 59.6 in Temperature 97.7 F Cardiac Monitoring Heart Rate 63 /min Blood Pressure Diastolic 70 mm Hg Blood Pressure Systolic 130 mm Hg Results No Known Results Summary Purpose [employer] Submission
--- OUTSIDE RECORDS SUMMARY | 2019-05-23 06:46 | XMS REPORT ---
Author Author Alexey Cruz Organization [employer] Address Unknown Phone Unavailable Care Team Providers Care Awning Craftsman Name Role Phone Alexey Cruz CP Unavailable Allergies, Adverse Reactions, Alerts Substance Reaction Event Type Sulfa Info Not Available Drug Allergy Problems Problem Type Condition Code Onset Dates Condition Status Assessment Chronic anxiety F41.9 Active Assessment Bilateral carotid bruits R09.89 Active Assessment Polymyalgia rheumatica M35.3 Active Assessment Other and unspecified hyperlipidemia E78.5 Active Assessment Symptomatic menopausal or female climacteric states N95.1 Active Assessment 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 Assessment Depressive disorder, 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 Active Assessment History of colonic polyps Z86.010 Active Assessment Generalized osteoarthrosis, 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 Active Problem Bilateral carotid bruits R09.89 Active Assessment Coronary atherosclerosis I25.10 Active Problem Chronic anxiety F41.9 Active Assessment Peripheral neuropathic pain G62.9 Active Problem Acute gastric ulcer K25.3 Active Problem Polyneuropathy G62.9 Active Problem Other and unspecified hyperlipidemia E78.5 Active Problem Urinary incontinence in female R32 Active Problem Ataxia R27.0 Active Problem Benign essential hypertension I10 Active Assessment Encounter for general adult medical examination with abnormal findings Z00.01 Active Assessment Urinary incontinence in female R32 Active Problem Macular degeneration (senile) of retina H35.30 Active Assessment Benign essential hypertension I10 Active Assessment Macular degeneration (senile) of retina H35.30 Active Problem 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 Assessment Dysuria R30.0 Active Problem Anxiety F41.9 Active Problem Atherosclerosis of both carotid arteries I65.23 Active Problem Carotid stenosis, right I65.21 Active Assessment 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 Problem History of colonic polyps Z86.010 Active Assessment Polyneuropathy G62.9 Active Problem Coronary atherosclerosis I25.10 Active Assessment Carotid stenosis, right I65.21 Active Problem Peripheral neuropathic pain G62.9 Active Assessment Anxiety F41.9 Active Problem 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 Assessment Ataxia R27.0 Active Problem Depressive disorder, 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 Active Assessment Atherosclerosis of both carotid arteries I65.23 Active Problem Polymyalgia rheumatica M35.3 Active Problem Symptomatic menopausal or female climacteric states N95.1 Active Problem Generalized osteoarthrosis, 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 Active Medications Medication Code System Code Instructions Start Date End Date Status Dosage Sucralfate [facility] 71525330021 1 GM Orally Twice a day Active 1 tablet on an empty stomach Hydrochlorothiazide [facility] 51445303891 12.5 MG Orally Once a day Active 1 capsule Celexa [facility] 12084051522 10 MG Orally Once a day December 21, 2016 Active 2 tablets Levothyroxine Sodium [facility] 29307092265 25 MCG Orally Once a day Jun 01, 2016 Active 1 tablet Metoprolol Succinate ER [facility] 84579411079 50 Active TAKE 1 TABLET BY MOUTH ONCE A DAY Omeprazole [facility] 61776902739 40 MG Orally Once a day Active 1 capsule Losartan Potassium [facility] 40554480869 50 MG Orally Once a day December 04, 2016 Active 1 tablet Macrodantin [facility] 64397581860 50 mg Orally Once a day Active 1 capsule with food or milk Meclizine HCl [facility] 01581391722 12.5 MG Orally twice a day (bid) as needed (prn) March 20, 2017 Active 1 tablet Cipro [facility] 15953354921 250 MG Active 1 TABLET DAILY ORALLY 90 DAYS Paxil [facility] 87011457073 20 MG Orally Once a day Active 1 tablet in the morning Xarelto [facility] 88211777793 20 MG Orally Once a day March 20, 2017 Active 1 tablet with food Paxil [facility] 88075526779 20 mg Orally Once a day December 19, 2017 Active 1 tablet in the morning Nitrostat [facility] 28102168100 0.4 MG Sublingual as needed (prn) December 15, 2014 Active as directed Gabapentin [facility] 43168134925 600 Active TAKE 1 TABLET BY MOUTH TWICE DAILY isosorbide mononitrate ER 30 mg Tab NDC 0 30 mg mg by mouth every day (qd) Jul 17, 2011 Active 1 tablet Omeprazole [facility] 86850909112 40 MG Orally Once a day Active 1 capsule PredniSONE [facility] 17401591750 5 MG Orally Once a day Active 1 tablet Vital Signs Date/Time: December 19, 2017 BMI 26.50 Index Weight 133.9 lbs Height 59.6 in Temperature 97.6 F Cardiac Monitoring Heart Rate 66 /min Blood Pressure Diastolic 44 mm Hg Blood Pressure Systolic 126 mm Hg Results No Known Results Summary Purpose [employer] Submission
--- OUTSIDE RECORDS SUMMARY | 2019-05-23 06:46 | XMS REPORT ---
Author Author Alexey Cruz Organization [employer] Address Unknown Phone Unavailable Care Team Providers Care Finance Analyst Name Role Phone Alexey Cruz CP Unavailable [...] Instructions Start Date End Date Status Dosage Vantin NDC 0 200 MG Orally every 12 hrs Jul 24, 2017 Aug 03, 2017 Active 1 tablet Results No Known Results Summary Purpose [employer] Submission
--- OUTSIDE RECORDS SUMMARY | 2019-05-23 06:46 | XMS REPORT ---
Author Author Kathie Guzman Organization [employer] Address Unknown Phone Unavailable Care Team Providers Care Airport Tower Controller Name Role Phone Kathie Guzman CP Unavailable Allergies, Adverse Reactions, Alerts Substance Reaction Event Type Sulfa Info Not Available Drug Allergy Problems Problem Type Condition Code Onset Dates Condition Status Problem Acute gastric ulcer K25.3 Active Problem Polyneuropathy G62.9 Active Problem Other and unspecified hyperlipidemia E78.5 Active Problem Urinary incontinence in female R32 Active Problem Benign essential hypertension I10 Active Problem Ataxia R27.0 Active Assessment Urinary incontinence in female R32 Active Problem Macular degeneration (senile) of retina H35.30 Active Problem 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 Problem Anxiety F41.9 Active Problem Atherosclerosis of both carotid arteries I65.23 Active Problem Carotid stenosis, right I65.21 Active Problem History of colonic polyps Z86.010 Active Problem Coronary atherosclerosis I25.10 Active Problem Peripheral neuropathic pain G62.9 Active Problem 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 Problem Depressive disorder, 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 Active Problem Polymyalgia rheumatica M35.3 Active Problem Symptomatic menopausal or female climacteric states N95.1 Active Problem Bilateral carotid bruits R09.89 Active Problem Generalized osteoarthrosis, 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 Active Problem Chronic anxiety F41.9 Active Medications Medication Code System Code Instructions Start Date End Date Status Dosage Omeprazole [facility] 99020524424 40 MG Orally Once a day Active 1 capsule isosorbide mononitrate ER 30 mg Tab NDC 0 30 mg mg by mouth every day (qd) Jul 17, 2011 Active 1 tablet Celexa [facility] 38323925723 10 MG Orally Once a day December 21, 2016 Active 2 tablets Levothyroxine Sodium [facility] 63820328367 25 MCG Orally Once a day Jun 01, 2016 Active 1 tablet Xarelto [facility] 03030553165 20 MG Orally Once a day March 20, 2017 Active 1 tablet with food Sucralfate [facility] 64121478575 1 GM Orally Twice a day Active 1 tablet on an empty stomach Macrodantin NDC 14521138845 50 mg Orally Once a day Active 1 capsule with food or milk Metoprolol Succinate ER [facility] 41590100799 50 Active TAKE 1 TABLET BY MOUTH ONCE A DAY Paxil [facility] 79711626440 10 MG Orally Once a day Active 1 tablet in the morning Cipro [facility] 74453273061 250 MG Active 1 TABLET DAILY ORALLY 90 DAYS Hydrochlorothiazide [facility] 22570703896 12.5 MG Orally Once a day Active 1 capsule Losartan Potassium [facility] 63542925447 50 MG Orally Once a day December 04, 2016 Active 1 tablet Omeprazole [facility] 68955938472 40 MG Orally Once a day Active 1 capsule Meclizine HCl [facility] 99845115771 12.5 MG Orally twice a day (bid) as needed (prn) March 20, 2017 Active 1 tablet PredniSONE [facility] 41322239694 5 MG Orally Once a day Active 1 tablet Nitrostat [facility] 47586985789 0.4 MG Sublingual as needed (prn) December 15, 2014 Active as directed Gabapentin [facility] 99080380297 600 Active TAKE 1 TABLET BY MOUTH TWICE DAILY Vital Signs Date/Time: Nov 21, 2017 BMI 26.50 Index Weight 133.9 lbs Height 59.6 in Temperature 97.5 F Cardiac Monitoring Heart Rate 66 /min Blood Pressure Diastolic 37 mm Hg Blood Pressure Systolic 143 mm Hg Results Name Result Date Reference Range Unit Abnormality Flag UA (urinalysis) ----Spec [place] 1.005 20171122 ----Turbidity CLEAR 20171122 ----Glucose NEG 20171122 ----Ketones NEG 20171122 ----Blood NEG 20171122 ----Bili NEG 20171122 ----Color YELLOW 20171122 ----pH 6 20171122 ----Leuk Est NEG 20171122 ----Nitrite NEG 20171122 ----Urobilinogen NORMAL 20171122 ----Protein 30 [id number] Summary Purpose [employer]Works Submission
--- OUTSIDE RECORDS SUMMARY | 2019-05-23 06:46 | XMS REPORT ---
Author Author Alexey Cruz Organization [employer] Address Unknown Phone Unavailable Care Team Providers Care Dairy Feed Mixing Operator Name Role Phone Alexey Cruz CP Unavailable Allergies No Known Allergies Problems Problem Type Condition Code Onset Dates Condition Status Assessment Benign essential hypertension I10 Active Problem Symptomatic menopausal or female climacteric [...] Instructions Start Date End Date Status Dosage Myrbetriq [facility] 37974152991 25 MG Orally Once a day Jun 20, 2018 Active 1 tablet Levothyroxine Sodium [place] 28615197968 25 MCG Orally Once a day Active 1 tablet Results No Known Results Summary Purpose [employer] Submission
--- OUTSIDE RECORDS SUMMARY | 2019-05-23 06:46 | XMS REPORT ---
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 Problem Macular degeneration (senile) of retina H35.30 Active Problem Urinary incontinence in female R32 Active Problem Depressive disorder, 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 Active Problem Generalized osteoarthrosis, 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 Active Problem Peripheral neuropathic pain G62.9 Active Problem 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
--- OUTSIDE RECORDS SUMMARY | 2019-05-23 06:46 | XMS REPORT ---
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
--- OUTSIDE RECORDS SUMMARY | 2019-05-23 06:46 | XMS REPORT ---
Author Author Alexey Cruz Organization [employer] Address Unknown Phone Unavailable Care Team Providers Care Consultant In Ergonomics And Safety Name Role Phone Alexey Cruz CP Unavailable Allergies, Adverse Reactions, Alerts Substance Reaction Event Type Sulfa Info Not Available Drug Allergy Problems Problem Type Condition Code Onset Dates Condition Status Assessment Acute deep vein thrombosis (DVT) of popliteal vein of left lower extremity I82.432 Active Assessment Peripheral neuropathic pain G62.9 Active Problem Acute gastric ulcer K25.3 Active Assessment Benign essential hypertension I10 Active Problem Other and unspecified hyperlipidemia E78.5 Active Assessment Polymyalgia rheumatica M35.3 Active Problem Cardiomyopathy, unspecified I42.9 Active Problem [...] Instructions Start Date End Date Status Dosage Gabapentin [facility] 36227370898 600 Active TAKE 1 TABLET BY MOUTH TWICE DAILY Metoprolol Succinate ER [facility] 09530021095 50 Active TAKE 1 TABLET BY MOUTH ONCE A DAY PredniSONE [facility] [address]-30 5 MG Orally Once a day April 18, 2017 May 18, 2017 Active 1 tablet PredniSONE [facility] [address]-49 5 MG Orally Once a day Active 1 tablet Losartan Potassium NDC [address]-88 50 MG Orally Once a day December 04, 2016 Active 1 tablet Meclizine HCl [facility] [address]-67 12.5 MG Orally twice a day (bid) as needed (prn) March 20, 2017 Active 1 tablet Nitrostat [facility] [address]-55 0.4 MG Sublingual as needed (prn) December 15, 2014 Active as directed Cipro [facility] [address]-27 250 MG Orally daily April 18, 2017 Oct 15, 2017 Active 1 tablet Xarelto [facility] [address]-57 Active not defined Xarelto [facility] [address]-53 20 MG Orally Once a day Active 1 tablet with food isosorbide mononitrate ER 30 mg Tab NDC 0 30 mg mg by mouth every day (qd) Jul 17, 2011 Active 1 tablet Omeprazole [facility] [address]-86 40 MG Orally Once a day Active 1 capsule Xarelto [facility] [address]-04 20 MG Orally Once a day March 20, 2017 Active 1 tablet with food Cipro [facility] [address]-24 250 MG Orally daily February 27, 2017 Apr 29, 2017 Active 1 tablet Hydrochlorothiazide [facility] 88183393065 12.5 MG Orally Once a day Active 1 capsule Celexa [facility] [address]-55 10 MG Orally Once a day December 21, 2016 Active 2 tablets Levothyroxine Sodium [facility] [address]-95 25 MCG Orally Once a day Jun 01, 2016 Active 1/2 half tablet Zoloft [facility] [address]-43 100 MG by mouth Once a day May 27, 2009 Active 1 tablet Sucralfate [facility] [address]-71 1 GM Orally Twice a day Active 1 tablet on an empty stomach Vital Signs Date/Time: April 18, 2017 BMI 25.93 Index Weight 131 lbs Height 59.6 in Temperature 98.1 F Cardiac Monitoring Heart Rate 50 /min Blood Pressure Diastolic 30 mm Hg Blood Pressure Systolic 114 mm Hg Results No Known Results Summary Purpose eClinicalWorks Submission
--- OUTSIDE RECORDS SUMMARY | 2019-05-23 06:46 | XMS REPORT ---
Author Author Alexey Cruz Organization [employer] Address Unknown Phone Unavailable Care Team Providers Care Stove Polisher Name Role Phone Alexey Cruz CP Unavailable [...] Dosage Vantin NDC 0 200 MG Orally twice a day (bid) Jul 24, 2017 Aug 03, 2017 Active 1 tablet Results No Known Results Summary Purpose [employer]Works Submission
--- OUTSIDE RECORDS SUMMARY | 2019-05-23 06:46 | XMS REPORT ---
Author Author Alexey Cruz Organization [employer] Address Unknown Phone Unavailable Care Team Providers Care Toll Test Desk Worker Name Role Phone Alexey Cruz CP Unavailable Allergies, Adverse Reactions, Alerts Substance Reaction Event Type Sulfa Info Not Available Drug Allergy Problems Problem Type Condition Code Onset Dates Condition Status Assessment Benign positional vertigo, unspecified laterality H81.10 Active Assessment Peripheral neuropathic pain G62.9 Active Problem Acute gastric ulcer K25.3 Active Assessment Benign essential hypertension I10 Active Problem Other and unspecified hyperlipidemia E78.5 Active Assessment Deep vein thrombosis (DVT) of other vein of left lower extremity I82.492 Active Problem Cardiomyopathy, unspecified I42.9 Active Problem [...] Date End Date Status Dosage Losartan Potassium [facility][NOTE 3] [address]-08 50 MG Orally Once a day December 04, 2016 Active 1 tablet Metoprolol Succinate ER [facility][NOTE 3] 19282261890 50 Active TAKE 1 TABLET BY MOUTH ONCE A DAY Xarelto [facility][NOTE 3] [address]-88 20 MG Orally Once a day Active 1 tablet with food isosorbide mononitrate ER 30 mg Tab ND 0 30 mg mg by mouth every day (qd) Jul 17, 2011 Active 1 tablet Spironolactone [facility]NOTE 3] 84905368632 25 MG Orally Twice a day Active 1 tablet Celexa [facility][NOTE 3] [address]-07 10 MG Orally Once a day December 21, 2016 Active 2 tablets Zoloft [facility][NOTE 3] [address]-51 100 MG by mouth Once a day May 27, 2009 Active 1 tablet Xarelto [facility][NOTE 3] [address]-61 20 MG Orally Once a day March 20, 2017 Active 1 tablet with food Xarelto [facility]NOTE 3] [address]-08 Active not defined Sucralfate [facility][NOTE 3] [address]-14 1 GM Orally Twice a day Active 1 tablet on an empty stomach PredniSONE [facility][NOTE 3] [address]-78 5 MG Orally Once a day Active 1 tablet Gabapentin [facility]NOTE 3] 99571587603 600 Active TAKE 1 TABLET BY MOUTH TWICE DAILY Cipro [facility][NOTE 3] [address]-02 250 MG Orally daily February 27, 2017 Apr 29, 2017 Active 1 tablet Omeprazole [facility]NOTE 3] [address]-18 40 MG Orally Once a day Active 1 capsule Meclizine HCl [facility][NOTE 3] [address]-71 12.5 MG Orally twice a day (bid) as needed (prn) March 20, 2017 Active 1 tablet Levothyroxine Sodium [facility][NOTE 3] [address]-06 25 MCG Orally Once a day Jun 01, 2016 Active 1/2 half tablet Hydrochlorothiazide [facility]NOTE 3] 80503161976 12.5 MG Orally Once a day Active 1 capsule Nitrostat [facility][NOTE 3] [address]-81 0.4 MG Sublingual as needed (prn) December 15, 2014 Active as directed Vital Signs Date/Time: March 20, 2017 BMI 26.46 Index Weight 133.7 lbs Height 59.6 in Temperature 98.2 F Cardiac Monitoring Heart Rate 65 /min Blood Pressure Diastolic 40 mm Hg Blood Pressure Systolic 128 mm Hg Results No Known Results Summary Purpose [employer] Submission
--- OUTSIDE RECORDS SUMMARY | 2019-05-23 06:46 | XMS REPORT ---
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 Active Assessment Benign essential hypertension I10 Active Assessment Ataxia R27.0 Active Assessment Dizziness R42 Active Problem Other and unspecified hyperlipidemia E78.5 Active Assessment Recurrent UTI N39.0 Active Problem Cardiomyopathy, unspecified I42.9 Active [...] (qd) Jul 17, 2011 Active 1 tablet Hydrochlorothiazide [facility] 77899117952 12.5 MG Orally Once a day Active 1 capsule Meclizine HCl [facility] 79211110317 12.5 MG Orally twice a day (bid) as needed (prn) March 20, 2017 Active 1 tablet Xarelto [facility] 89745579349 20 MG Orally Once a day Active 1 tablet with food Metoprolol Succinate ER [facility] 14918078086 50 Active TAKE 1 TABLET BY MOUTH ONCE A DAY Gabapentin [facility] 18000120341 600 Active TAKE 1 TABLET BY MOUTH TWICE DAILY Losartan Potassium [facility] 97127949292 50 MG Orally Once a day December 04, 2016 Active 1 tablet Paxil [facility] 55013228338 10 MG Orally Once a day Jul 05, 2017 Active 1 tablet in the morning Levothyroxine Sodium [facility] 97104040264 25 MCG Orally Once a day Jun 01, 2016 Active 1 tablet PredniSONE [facility] 94405725767 5 MG Orally Once a day Active 1 tablet Macrodantin [facility] 96680824805 50 mg Orally Once a day Aug 06, 2017 Oct 05, 2017 Active 1 capsule with food or milk Xarelto [facility] 01008114857 20 MG Orally Once a day March 20, 2017 Active 1 tablet with food Cipro [facility] 48039839235 250 MG Orally daily April 18, 2017 Oct 15, 2017 Active 1 tablet Xarelto [facility] [address]-75 Active not defined Celexa [facility] 28950994501 10 MG Orally Once a day December 21, 2016 Active 2 tablets Omeprazole [facility] 32911276935 40 MG Orally Once a day Active 1 capsule Sucralfate [facility] 49671855655 1 GM Orally Twice a day Active 1 tablet on an empty stomach Nitrostat [facility] 29295585922 0.4 MG Sublingual as needed (prn) December 15, 2014 Active as directed Vital Signs Date/Time: Aug 06, 2017 BMI 25.27 Index Weight 127.7 lbs Height 59.6 in Temperature 97.7 F Cardiac Monitoring Heart Rate 68 /min Blood Pressure Diastolic 49 mm Hg Blood Pressure Systolic 142 mm Hg Results Name Result Date Reference Range Unit Abnormality Flag Brain wo contrast MRI Immunizations Vaccine Administration Date Influenza Vaccine Aug 06, 2017 Summary Purpose [employer] Submission
--- OUTSIDE RECORDS SUMMARY | 2019-05-23 06:46 | XMS REPORT ---
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 Active Assessment Peripheral neuropathic pain G62.9 Active [...] Start Date End Date Status Dosage Zoloft [facility] [address]-13 100 MG by mouth Once a day May 27, 2009 Active 1 tablet Metoprolol Succinate ER [facility] 50782166135 50 Active TAKE 1 TABLET BY MOUTH ONCE A DAY Celexa [facility] [address]-28 10 MG Orally Once a day December 21, 2016 Active 2 tablets isosorbide mononitrate ER 30 mg Tab NDC 0 30 mg mg by mouth every day (qd) Jul 17, 2011 Active 1 tablet Cipro [facility] [address]-91 250 MG Orally daily April 18, 2017 Oct 15, 2017 Active 1 tablet PredniSONE [facility] [address]-51 5 MG Orally Once a day Active 1 tablet Losartan Potassium [facility] [address]-53 50 MG Orally Once a day December 04, 2016 Active 1 tablet Xarelto [facility] [address]-63 20 MG Orally Once a day Active 1 tablet with food Xarelto [facility] [address]-42 Active not defined Hydrochlorothiazide [facility] 97385214339 12.5 MG Orally Once a day Active 1 capsule PredniSONE [facility] [address]-30 5 MG Orally Once a day Active 1 tablet Meclizine HCl [facility] [address]-87 12.5 MG Orally twice a day (bid) as needed (prn) March 20, 2017 Active 1 tablet Gabapentin [facility] 15465104542 600 Active TAKE 1 TABLET BY MOUTH TWICE DAILY Omeprazole [facility] [address]-90 40 MG Orally Once a day Active 1 capsule Nitrostat [facility] [address]-48 0.4 MG Sublingual as needed (prn) December 15, 2014 Active as directed Xarelto [facility] [address]-78 20 MG Orally Once a day March 20, 2017 Active 1 tablet with food Levothyroxine Sodium [facility] [address]-98 25 MCG Orally Once a day Jun 01, 2016 Active 1/2 half tablet Sucralfate [facility] [address]-97 1 GM Orally Twice a day Active 1 tablet on an empty stomach Vital Signs Date/Time: Jun 26, 2017 BMI 25.33 Index Weight 128.0 lbs Height 59.6 in Temperature 98.1 F Cardiac Monitoring Heart Rate 62 /min Blood Pressure Diastolic 39 mm Hg Blood Pressure Systolic 124 mm Hg Results No Known Results Summary Purpose [employer]Works Submission
--- OUTSIDE RECORDS SUMMARY | 2019-05-23 06:46 | XMS REPORT ---
Author Author Alexey Cruz Organization [employer] Address Unknown Phone Unavailable Care Team Providers Care Structural Biologist Name Role Phone Alexey Cruz CP Unavailable [...] Instructions Start Date End Date Status Dosage Sertraline HCl [facility] 82096202710 25 Orally once a day Active 1 tablet Results No Known Results Summary Purpose [employer] Submission
--- OUTSIDE RECORDS SUMMARY | 2019-05-23 06:46 | XMS REPORT ---
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 11801350461 5 MG Orally Once a day Active 1 tablet Nitrostat [facility] 56852083264 0.4 MG Sublingual as needed (prn) December 15, 2014 Active as directed Losartan Potassium [facility] 75900406215 50 MG Orally Once a day December 04, 2016 Active 1 tablet Cipro [facility] 65733629056 250 MG Orally daily April 18, 2017 Oct 15, 2017 Active 1 tablet Omeprazole [facility] 47928187348 40 MG Orally Once a day Active 1 capsule Levothyroxine Sodium [facility] 05239214814 25 MCG Orally Once a day Jun 01, 2016 Active 1 tablet Xarelto [facility] 33769843950 20 MG Orally Once a day March 20, 2017 Active 1 tablet with food Metoprolol Succinate ER [facility] 64542039515 50 Active TAKE 1 TABLET BY MOUTH ONCE A DAY Macrodantin [facility] 50305617604 50 mg Orally Once a day Aug 06, 2017 Oct 05, 2017 Active 1 capsule with food or milk Gabapentin [facility] 55914622262 600 Active TAKE 1 TABLET BY MOUTH TWICE DAILY isosorbide mononitrate ER 30 mg Tab NDC 0 30 mg mg by mouth every day (qd) Jul 17, 2011 Active 1 tablet Meclizine HCl [facility] 42961883547 12.5 MG Orally twice a day (bid) as needed (prn) March 20, 2017 Active 1 tablet Hydrochlorothiazide [facility] 23840486721 12.5 MG Orally Once a day Active 1 capsule Sucralfate [facility] 46277313879 1 GM Orally Twice a day Active 1 tablet on an empty stomach Paxil [facility] 08788724080 10 MG Orally Once a day Jul 05, 2017 Active 1 tablet in the morning Celexa [facility] 39158516255 10 MG Orally Once a day December 21, 2016 Active 2 tablets Vital Signs Date/Time: Aug 23, 2017 BMI 25.49 Index Weight 128.8 lbs Height 59.6 in Temperature 98.1 F Cardiac Monitoring Heart Rate 59 /min Blood Pressure Diastolic 49 mm Hg Blood Pressure Systolic 152 mm Hg Results No Known Results Summary Purpose [employer]ClinicalWorks Submission
--- OUTSIDE RECORDS SUMMARY | 2019-05-23 06:46 | XMS REPORT ---
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
--- OUTSIDE RECORDS SUMMARY | 2019-05-23 06:47 | XMS REPORT ---
Author Author Alexey Cruz Organization [employer] Address Unknown Phone Unavailable Care Team Providers Care Porcelain Enameler Name Role Phone Alexey Cruz CP Unavailable Allergies No Known Allergies Problems Problem Type Condition Code Onset Dates Condition Status Problem Other and unspecified hyperlipidemia E78.5 Active Problem Anxiety F41.9 Active Problem Polyneuropathy G62.9 Active Problem Macular degeneration (senile) of retina H35.30 Active Problem Peripheral neuropathic pain G62.9 Active Problem Urinary incontinence in female R32 Active Problem Benign essential hypertension I10 Active Assessment 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 Problem Odynophagia R13.10 Active Problem Carotid stenosis, right I65.21 Active Problem 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 Problem Ataxia R27.0 Active Problem Atherosclerosis of both carotid arteries I65.23 Active Problem Coronary atherosclerosis I25.10 Active Problem Generalized osteoarthrosis, 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
--- OUTSIDE RECORDS SUMMARY | 2019-05-23 06:47 | XMS REPORT ---
Author Author Alexey Cruz Organization [employer] Address Unknown Phone Unavailable Care Team Providers Care Poultry Raiser Name Role Phone Alexey Cruz CP Unavailable Allergies No Known Allergies Problems Problem Type Condition Code Onset Dates Condition Status Problem Other and unspecified hyperlipidemia E78.5 Active Problem Anxiety F41.9 Active Problem Polyneuropathy G62.9 Active Problem Macular degeneration (senile) of retina H35.30 Active Problem Peripheral neuropathic pain G62.9 Active Problem Urinary incontinence in female R32 Active Problem Benign essential hypertension I10 Active Problem Odynophagia R13.10 Active Problem Carotid [...] Instructions Start Date End Date Status Dosage Macrodantin [facility] 31216435422 50 mg Orally Once a day Active 1 capsule with food or milk Results No Known Results Summary Purpose [employer]ClinicalWorks Submission
--- OUTSIDE RECORDS SUMMARY | 2019-05-23 06:47 | XMS REPORT ---
Author Author Alexey Cruz Organization [employer] Address Unknown Phone Unavailable Care Team Providers Care Food Adviser Name Role Phone Alexey Cruz CP Unavailable Allergies No Known Allergies Problems Problem Type Condition Code Onset Dates Condition Status Problem Other and unspecified hyperlipidemia E78.5 Active Problem Anxiety F41.9 Active Problem Polyneuropathy G62.9 Active Problem Macular degeneration (senile) of retina H35.30 Active Problem Peripheral neuropathic pain G62.9 Active Problem Urinary incontinence in female R32 Active Problem Benign essential hypertension I10 Active Assessment UTI (urinary tract infection) N39.0 Active Problem Odynophagia R13.10 Active Problem Carotid [...] Instructions Start Date End Date Status Dosage Levothyroxine Sodium [facility] 57567425218 50 MCG Orally Once a day Jun 01, 2016 Active 1 tablet Results No Known Results Summary Purpose [employer]ClinicalWorks Submission
--- OUTSIDE RECORDS SUMMARY | 2019-05-23 06:47 | XMS REPORT ---
Author Author Alexey Cruz Organization [employer] Address Unknown Phone Unavailable Care Team Providers Care Stamp Presser Name Role Phone Alexey Cruz CP Unavailable [...] Start Date End Date Status Dosage Omeprazole [facility] 57422062659 40 MG Orally Once a day Active 1 capsule Results No Known Results Summary Purpose eClinicalWorks Submission
--- OUTSIDE RECORDS SUMMARY | 2019-05-23 06:47 | XMS REPORT ---
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 Problem Macular degeneration (senile) of retina H35.30 Active Problem Peripheral neuropathic pain G62.9 Active Problem Benign essential hypertension I10 Active Problem Odynophagia R13.10 Active Problem Atherosclerosis of both carotid arteries I65.23 Active Problem Carotid stenosis, right I65.21 Active Problem Urinary incontinence in female R32 Active Problem Ataxia R27.0 Active Problem Generalized osteoarthrosis, 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 Active Problem Depressive disorder, 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 Active Problem History of colonic polyps Z86.010 Active Problem Coronary atherosclerosis I25.10 Active Problem Bilateral carotid bruits R09.89 Active Problem Chronic anxiety F41.9 Active Problem Symptomatic menopausal or female climacteric states N95.1 Active Problem Acute gastric ulcer K25.3 Active Problem Polymyalgia rheumatica M35.3 Active Problem Other and unspecified hyperlipidemia E78.5 Active Medications Medication Code System Code Instructions Start Date End Date Status Dosage Macrodantin [facility] 85743475295 50 mg Orally Once a day Aug 04, 2018 Active 1 capsule with food or milk Results No Known Results Summary Purpose eClinicalWorks Submission
--- OUTSIDE RECORDS SUMMARY | 2019-05-23 06:47 | XMS REPORT ---
Author Author Alexey Cruz Organization [employer] Address Unknown Phone Unavailable Care Team Providers Care Closing Supervisor Name Role Phone Alexey Cruz CP Unavailable [...] Date End Date Status Dosage Levothyroxine Sodium [facility] 44081699464 50 MCG Orally Once a day Jun 01, 2016 Active 1 tablet Results No Known Results Summary Purpose eClinicalWorks Submission
--- OUTSIDE RECORDS SUMMARY | 2019-05-23 06:47 | XMS REPORT ---
Author Author Alexey Cruz Organization e[employer] Address Unknown Phone Unavailable Care Team Providers Care Automatic Steel Tie Adjuster Name Role Phone Alexey Cruz CP Unavailable Allergies, Adverse Reactions, Alerts Substance Reaction Event Type Sulfa Info Not Available Drug Allergy Problems Problem Type Condition Code Onset Dates Condition Status Assessment Coronary atherosclerosis I25.10 Active Problem Chronic anxiety F41.9 Active Assessment Benign essential hypertension I10 Active Problem Acute gastric ulcer K25.3 Active Assessment Fatigue, unspecified type R53.83 Active Problem Other and unspecified hyperlipidemia E78.5 Active Problem Anxiety F41.9 Active Problem Polyneuropathy G62.9 Active Problem Macular degeneration (senile) of retina H35.30 Active Problem Urinary incontinence in female R32 Active Problem Peripheral neuropathic pain G62.9 Active Problem Benign essential hypertension I10 Active Problem Odynophagia R13.10 Active Assessment Odynophagia R13.10 Active Problem Carotid stenosis, right [...] disorder, 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 Active Problem Symptomatic menopausal or female climacteric states N95.1 Active Medications Medication Code System Code Instructions Start Date End Date Status Dosage Cipro [facility] 94948637138 250 MG Active 1 TABLET DAILY ORALLY 90 DAYS Losartan Potassium-HCTZ [facility] 19429722864 0 Active TAKE 1 TABLET BY MOUTH EVERY DAY isosorbide mononitrate ER 30 mg Tab NDC 0 30 mg mg by mouth every day (qd) Jul 17, 2011 Active 1 tablet Paxil [facility] 06821013645 20 mg Orally Once a day December 19, 2017 Active 1 tablet in the morning Paxil ND 45858513231 20 MG Orally Once a day Active 1 tablet in the morning PredniSONE [facility] 10690251552 5 MG Orally Once a day Active 1 tablet Meclizine HCl [facility] 18400015887 12.5 MG Orally twice a day (bid) as needed (prn) March 20, 2017 Active 1 tablet Hydrochlorothiazide [facility] 76476678741 12.5 MG Orally Once a day Active 1 capsule Sucralfate [facility] 70480425837 1 GM Orally Twice a day Active 1 tablet on an empty stomach Losartan Potassium [facility] 57132805741 50 MG Orally Once a day December 04, 2016 Active 1 tablet Metoprolol Succinate ER [facility] 48281971934 50 Active TAKE 1 TABLET BY MOUTH ONCE A DAY Nitrostat [facility] 54706415763 0.4 MG Sublingual as needed (prn) December 15, 2014 Active as directed Levothyroxine Sodium [facility] 89917304852 25 MCG Orally Once a day Jun 01, 2016 Active 1 tablet Xarelto [facility] 96832564672 20 MG Orally Once a day March 20, 2017 Active 1 tablet with food Omeprazole [facility] 96279767440 40 MG Orally Once a day Active 1 capsule Macrodantin [facility] 48626854223 50 mg Orally Once a day Active 1 capsule with food or milk Gabapentin [facility] 52662601122 600 Active TAKE 1 TABLET BY MOUTH TWICE DAILY Celexa [facility] 92206580982 10 MG Orally Once a day December 21, 2016 Active 2 tablets Vital Signs Date/Time: January 08, 2018 BMI 25.81 Index Weight 130.4 lbs Height 59.6 in Temperature 98.5 F Cardiac Monitoring Heart Rate 53 /min Blood Pressure Diastolic 42 mm Hg Blood Pressure Systolic 142 mm Hg Results No Known Results Summary Purpose eClinicalWorks Submission
--- OUTSIDE RECORDS SUMMARY | 2019-05-23 06:47 | XMS REPORT ---
Author Author Alexey Cruz Organization [employer] Address Unknown Phone Unavailable Care Team Providers Care Branch Controller Name Role Phone Alexey Cruz CP Unavailable [...] End Date Status Dosage Isosorbide Mononitrate CR [facility] 95756634913 30 mg Orally Once a day May 21, 2018 Active 1 tablet in the morning Results No Known Results Summary Purpose [employer]ClinicalWorks Submission
--- OUTSIDE RECORDS SUMMARY | 2019-05-23 06:47 | XMS REPORT ---
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 Problem Peripheral neuropathic pain G62.9 Active Problem Multiple falls R29.6 Active Problem Ataxia R27.0 Active Problem Atherosclerosis of both carotid arteries I65.23 Active Problem Macular degeneration (senile) of retina H35.30 Active Problem Urinary incontinence in female R32 Active Problem Depressive disorder, 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 Active Problem Symptomatic menopausal or female climacteric states N95.1 Active Problem Coronary atherosclerosis I25.10 Active Problem Generalized osteoarthrosis, 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
--- OUTSIDE RECORDS SUMMARY | 2019-05-23 06:47 | XMS REPORT ---
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 Problem Chronic anxiety F41.9 Active Assessment Coronary atherosclerosis I25.10 Active Problem [...] I10 Active Problem Odynophagia R13.10 Active Assessment Neck pain on right side M54.2 Active Problem Carotid stenosis, right I65.21 Active [...] Start Date End Date Status Dosage Sucralfate [facility] 16362342226 1 GM Orally Twice a day Active 1 tablet on an empty stomach Levothyroxine Sodium ND 62070716735 50 MCG Orally Once a day Jun 01, 2016 Active 1 tablet Levothyroxine Sodium ND 86642732775 25 MCG Orally Once a day Active 1 tablet Omeprazole [facility] 97655667807 40 MG Orally Once a day Active 1 capsule Macrodantin [facility] 68574518279 50 mg Orally Once a day Active 1 capsule with food or milk Nitrostat [facility] 81491344615 0.4 MG Sublingual as needed (prn) December 15, 2014 Active as directed isosorbide mononitrate ER 30 mg Tab NDC 0 30 mg mg by mouth every day (qd) Jul 17, 2011 Active 1 tablet Cipro [facility] 94364278948 250 MG Active 1 TABLET DAILY ORALLY 90 DAYS Losartan Potassium [facility] 39196495698 50 MG Orally Once a day December 04, 2016 Active 1 tablet Paxil [facility] 01059885677 20 mg Orally Once a day December 19, 2017 Active 1 tablet in the morning Metoprolol Succinate ER [facility] 30020627569 50 Active TAKE 1 TABLET BY MOUTH ONCE A DAY Hydrochlorothiazide [facility] 69179680474 12.5 MG Orally Once a day Active 1 capsule PredniSONE [facility] 58638237852 5 MG Orally Once a day Active 1 tablet Paxil [facility] 30621762920 20 MG Orally Once a day Active 1 tablet in the morning Celexa [facility] 24872040267 10 MG Orally Once a day December 21, 2016 Active 2 tablets Xarelto [facility] 20578413777 20 MG Orally Once a day March 20, 2017 Active 1 tablet with food Losartan Potassium-HCTZ [facility] 88375241854 0 Active TAKE 1 TABLET BY MOUTH EVERY DAY Gabapentin [facility] 84792909481 600 Active TAKE 1 TABLET BY MOUTH TWICE DAILY Meclizine HCl [facility] 37809102903 12.5 MG Orally twice a day (bid) as needed (prn) March 20, 2017 Active 1 tablet Vital Signs Date/Time: March 04, 2018 BMI 25.95 Index Weight 131.1 lbs Height 59.6 in Temperature 97.6 F Cardiac Monitoring Heart Rate 56 /min Blood Pressure Diastolic 39 mm Hg Blood Pressure Systolic 134 mm Hg Results No Known Results Summary Purpose eClinicalWorks Submission
--- OUTSIDE RECORDS SUMMARY | 2019-05-23 06:47 | XMS REPORT ---
Author Author Alexey Cruz Organization [employer] Address Unknown Phone Unavailable Care Team Providers Care Casino Porter Name Role Phone Alexey Cruz CP Unavailable Allergies, Adverse Reactions, Alerts Substance Reaction Event Type Sulfa Info Not Available Drug Allergy morphine Info Not Available Non Drug Allergy Problems Problem Type Condition Code Onset Dates Condition Status Assessment Benign paroxysmal positional vertigo, unspecified laterality H81.10 Active Assessment Diarrhea, unspecified type R19.7 Active Assessment Coronary atherosclerosis I25.10 Active Assessment Peripheral neuropathic pain G62.9 Active Assessment Benign essential hypertension I10 Active [...] Start Date End Date Status Dosage PredniSONE [facility] 34135417631 5 MG Orally Once a day Active 1 tablet Clonazepam [facility] 32618147033 [address] 1 TABLET ON THE TONGUE AND ALLOW TO DISSOLVE ONCE DAILY BEFORE BEDTIME Paxil [facility] 18240612920 20 mg Active 1 TABLET IN THE MORNING ONCE A DAY ORALLY 30 DAY(S) Melatonin ND 89473986098 3 MG Orally once every night Active 2 tablet at bedtime as needed with food Gabapentin [facility] 08844795396 300 MG Orally twice a day (bid) Active 1/2 half tablet Cipro [facility] 73163619590 250 Active 1 TABLET DAILY ORALLY 90 DAYS Metoprolol Succinate ER 25 mg 24 hr Tab NDC 0 25 mg by mouth every day (qd) April 03, 2012 March 18, 2019 Active 1 tablet Eliquis [facility] 59543916824 2.5 MG Orally twice a day (bid) Oct 25, 2018 Active 1 tablet Clonazepam ODT ND 0 0.125 MG Orally Once a day May 23, 2018 Active 1 tablet on the tongue and allow to dissolve before bedtime Sertraline HCl [facility] 05642577252 25 Orally once a day Active 1 tablet Lidoderm [facility] 24477197683 5 % Externally Once a day Oct 25, 2018 December 23, 2018 Active 1 patch to skin remove after 12 hours Cipro [facility] 93743449519 250 MG Active 1 TABLET DAILY ORALLY 90 DAYS Losartan Potassium ND 13622876096 50 MG Orally Once a day December 04, 2016 Active 1 tablet Hydrochlorothiazide [facility] 35653250709 12.5 MG Orally Once a day Active 1 capsule Meclizine HCl [facility] 94992331683 12.5 Orally twice a day (bid) as needed (prn) Active 1 tablet Tegretol [facility] 62094149639 200 MG Orally daily Active 1/2 half tablet Isosorbide Mononitrate CR [facility] 69863946326 30 Orally Once a day Active 1 tablet in the morning [facility] 38207012282 - Orally daily December 11, 2018 February 10, 2019 Active 1 capsule Isosorbide Mononitrate CR [facility] 30429537445 30 mg Orally Once a day Active 1 tablet in the morning Aspir-81 [facility] 28680000023 81 MG Orally Once a day Active 1 tablet Sennosides [facility] 68994343014 8.6 MG Orally as needed (prn) Active 2 tablets at bedtime as needed Metoprolol Succinate ER [facility] 31121175692 50 Active TAKE 1 TABLET BY MOUTH ONCE A DAY Myrbetriq [facility] 43633627748 25 MG Orally Once a day Active 1 tablet Eliquis 2.5 mg tablet [facility] 78901606748 twice a day (bid) Active not defined Sertraline HCl [facility] 46216108595 25 MG Orally once a day Active 1 tablet Nitrostat [facility] 54229476520 0.4 MG Sublingual as needed (prn) December 15, 2014 Active as directed Gabapentin [facility] 67698147738 300 MG Orally twice a day (bid) Active 1 capsule Meclizine HCl [facility] 07247422860 12.5 MG Orally twice a day (bid) Active 1 tablet Levothyroxine Sodium [facility] 97454303460 25 MCG Orally Once a day Active 1 tablet Losartan Potassium-HCTZ [facility] 67812417668 50-12.5 MG Orally Once a day Active TAKE 1 TABLET BY MOUTH EVERY DAY Omeprazole [facility] 03051360675 40 Orally Once a day Active 1 capsule Omeprazole [facility] 97413705264 20 MG Orally Once a day Active 1 capsule Myrbetriq [facility] 83586315927 25 MG Orally Once a day Jun 20, 2018 March 17, 2019 Active 1 tablet Ondansetron [facility] 25637260704 4 mg Orally every 6 hrs Active 1 tablet on the tongue and allow to dissolve as needed Tramadol HCl [facility] 63839828422 50 mg Orally as needed (prn) Oct 25, 2018 December 23, 2018 Active 1 tablet as needed Xarelto [facility] 20084175949 20 MG Orally Once a day March 20, 2017 Active 1 tablet with food Isosorbide Mononitrate CR [facility] 86408077940 30 mg Orally Once a day May 21, 2018 Active 1 tablet in the morning Losartan Potassium-HCTZ [facility] 15282902205 50-12.5 MG Orally Once a day Active 1 tablet Levothyroxine Sodium [facility] 08575873840 50 MCG Orally Once a day Active 1 tablet Vital Signs Date/Time: December 11, 2018 BMI 23.33 Index Weight 117.9 lbs Height 59.6 in Temperature 96.4 F Cardiac Monitoring Heart Rate 58 /min Blood Pressure Diastolic 50 mm Hg Blood Pressure Systolic 150 mm Hg Results Name Result Date Reference Range Unit Abnormality Flag Vitamin B12 Level ----Vitamin B12 Lvl 515 20181211 254-1320 pg/mL Lipid Panel w/calculated LDL ----CHD Risk 2.43 10281000 3.90-5.80 L ----LDL (Calculated) 123 24303274 <=99 mg/dL H ----Chol 248 67062482 <=199 mg/dL H ----HDL 102 85993181 >=61 mg/dL ----Trig 114 68226987 <=149 mg/dL Folate Level ----Folate Lvl 9.4 72258626 >=3.0 ng/mL CMP (Comprehensive Metabolic Panel) ----Creatinine Lvl 1.20 23272876 0.50-1.40 mg/dL ----Glucose Lvl 98 93590236 70-99 mg/dL ----B/C Ratio 26 12208488 6-25 H ----BUN 31 20181211 7-22 mg/dL H ----Albumin Lvl 3.7 42269967 3.5-5.0 g/dL ----Globulin 3.6 27181183 2.7-4.2 g/dL ----Total Protein 7.3 20181211 6.4-8.4 g/dL ----ALT 15 20181211 0-65 U/L ----CO2 23 83376248 24-32 mEq/L L ----AST 21 97375941 0-37 U/L ----AGAP 15.7 [id number] 10.0-20.0 mEq/L ----A/G Ratio 1.0 88717473 0.7-1.6 ----Potassium Lvl 4.7 62117290 3.5-5.1 mEq/L ----Calcium Lvl 9.0 75922395 8.5-10.5 mg/dL ----Chloride Lvl 109 26805037 95-109 mEq/L ----Sodium Lvl 143 70604510 135-145 mEq/L ----Alk Phos 72 53041622 39-136 U/L ----eGFR 40 93546357 mL/min/1.73m2 Vitamin D 25-Hydroxy ----Vitamin D, 25-OH, Total 30.9 24589768 30.0-100.0 ng/mL TSH (Thyroid Stimulating Hormone) ----TSH 1.390 09345078 0.360-3.740 uIU/mL CBC w/ Auto Diff and Platelet ----Hgb 11.9 15518178 12.0-16.0 g/dL L ----RBC 4.15 88421175 4.20-5.40 M/CMM L ----MCV 91.1 20181211 80.0-98.0 fl ----Hct 37.8 06781272 36.0-48.0 % ----MCHC 31.5 39020399 32.0-36.0 g/dL L ----MCH 28.7 72459992 27.0-31.0 pg ----Platelet 298 68841900 133-450 K/CMM ----RDW 15.0 43925031 11.5-14.5 % H ----MPV 8.2 20181211 7.4-10.4 fl ----WBC 9.2 74995600 3.7-10.4 K/CMM Summary Purpose eClinicalWorks Submission
--- OUTSIDE RECORDS SUMMARY | 2019-05-23 06:47 | XMS REPORT ---
Author Author Alexey Cruz [facility] eClinicalWorks Address Unknown Phone Unavailable Care Team Providers Care Ride Attendant Name Role Phone Alexey Cruz CP Unavailable Allergies No Known Allergies Problems Problem Type Condition Code Onset Dates Condition Status Assessment Atrial fibrillation I48.91 Active Problem Symptomatic menopausal or female climacteric [...] End Date Status Dosage Isosorbide Mononitrate CR ND 63295358158 30 mg Orally Once a day Active 1 tablet in the morning Omeprazole ND 06612451692 40 Orally Once a day Active 1 capsule Gabapentin ND 69680425417 300 MG Orally twice a day (bid) Active 1/2 half tablet Melatonin ND 16307967736 3 MG Orally once every night Active 2 tablet at bedtime as needed with food Levothyroxine Sodium ND 76548822569 50 MCG Orally Once a day Active 1 tablet Eliquis [facility] 45949327986 2.5 MG Orally twice a day (bid) December 16, 2018 Active as directed Metoprolol Succinate ER [facility] 73273393606 50 Orally Once a day Active TAKE 1 TABLET BY MOUTH ONCE A DAY Clonazepam ODT ND 0 0.125 MG Orally Once a day May 23, 2018 Active 1 tablet on the tongue and allow to dissolve before bedtime Sertraline HCl [facility] 58345978196 25 Orally once a day Active 1 tablet Xarelto [facility] 30274679007 10 MG Orally Once a day February 04, 2019 Active 1 tablet with food Xarelto [facility] 60536569673 20 MG Orally Once a day March 20, 2017 Active 1 tablet with food Losartan Potassium [facility] 01398463147 50 MG Orally Once a day December 04, 2016 Active 1 tablet Isosorbide Mononitrate CR ND 34090493711 30 Orally Once a day Active 1 tablet in the morning Meclizine HCl [facility] 71254154530 12.5 MG Orally twice a day (bid) Active 1 tablet Ondansetron [facility] 19471039942 4 mg Orally every 6 hrs Active 1 tablet on the tongue and allow to dissolve as needed Clonazepam [facility] 04278175228 0[address] 1 TABLET ON THE TONGUE AND ALLOW TO DISSOLVE ONCE DAILY BEFORE BEDTIME Paxil [facility] 08597488084 20 mg Active 1 TABLET IN THE MORNING ONCE A DAY ORALLY 30 DAY(S) Gabapentin ND 12419999781 300 MG Orally twice a day (bid) Active 1 capsule Nitrostat [facility] 12414401774 0.4 MG Sublingual as needed (prn) December 15, 2014 Active as directed [facility] 11919076794 - Orally daily December 11, 2018 February 10, 2019 Active 1 capsule Sertraline HCl [facility] 18395542804 25 MG Orally once a day Active 1 tablet Eliquis 2.5 mg tablet [facility] 81908223034 twice a day (bid) Active not defined Levothyroxine Sodium ND 32760769318 25 MCG Orally Once a day Active 1 tablet Aspir-81 [facility] 35757939138 81 MG Orally Once a day Active 1 tablet Cipro [facility] 84790323989 250 MG Active 1 TABLET DAILY ORALLY 90 DAYS Omeprazole [facility] 97416280931 20 MG Orally Once a day Active 1 capsule Losartan Potassium-HCTZ [facility] 26431288535 50-12.5 MG Orally Once a day Active TAKE 1 TABLET BY MOUTH EVERY DAY Cipro [facility] 36365423195 250 Active 1 TABLET DAILY ORALLY 90 DAYS PredniSONE [facility] 94289260300 5 MG Orally Once a day Active 1 tablet Myrbetriq [facility] 53950774651 25 MG Orally Once a day Jun 20, 2018 March 17, 2019 Active 1 tablet Hydrochlorothiazide [facility] 79826804750 12.5 MG Orally Once a day Active 1 capsule Losartan Potassium-HCTZ [facility] 89013598064 50-12.5 MG Orally Once a day Active 1 tablet Isosorbide Mononitrate CR [facility] 18969265490 30 mg Orally Once a day May 21, 2018 Active 1 tablet in the morning Tegretol [facility] 99905793466 200 MG Orally daily Active 1/2 half tablet Results No Known Results Summary Purpose eClinicalWorks Submission
--- OUTSIDE RECORDS SUMMARY | 2019-05-23 06:47 | XMS REPORT ---
Author Author Alexey Cruz Organization eClinicalWorks Address Unknown Phone Unavailable Care Team Providers Care Harvesting Supervisor Name Role Phone Alexey Cruz CP [...] End Date Status Dosage Metoprolol Succinate ER [facility] 42496935615 50 Active TAKE 1 TABLET BY MOUTH ONCE A DAY Results No Known Results Summary Purpose eClinicalWorks Submission
--- OUTSIDE RECORDS SUMMARY | 2019-05-23 06:47 | XMS REPORT ---
Author Author Alexey Cruz Organization [employer] Address Unknown Phone Unavailable Care Team Providers Care Voip Engineer Name Role Phone Alexey Cruz CP Unavailable Allergies, Adverse Reactions, Alerts Substance Reaction Event Type Sulfa Info Not Available Drug Allergy Problems Problem Type Condition Code Onset Dates Condition Status Assessment Peripheral neuropathic pain G62.9 Active Problem Acute gastric ulcer K25.3 Active Assessment Benign essential hypertension I10 Active Problem Other and unspecified hyperlipidemia E78.5 Active Assessment Neuralgia M79.2 Active Problem Polyneuropathy G62.9 Active Problem 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 Problem Anxiety F41.9 Active Problem Neuralgia M79.2 Active Problem Macular degeneration (senile) of retina H35.30 Active Problem 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 63405072601 25 MCG Orally Once a day Active [address] [facility] 16063417024 20 MG Orally Once a day Active 1 tablet in the morning Tegretol [facility] 60540971047 200 MG Orally daily April 18, 2018 Active 1/2 half tablet Levothyroxine Sodium [facility] 59660788422 50 MCG Orally Once a day Jun 01, 2016 Active 1 tablet Losartan Potassium [facility] 56611021253 50 MG Orally Once a day December 04, 2016 Active [address] [facility] 15282520896 250 MG Active 1 TABLET DAILY ORALLY [address] [facility] 23125455692 5 MG Orally Once a day Active [address] [facility] 22135105269 20 MG Orally Once a day March 20, 2017 Active 1 tablet with food Paxil [facility] 42223314243 20 mg Orally Once a day December 19, 2017 Active 1 tablet in the morning Metoprolol Succinate ER [facility] 81112594887 50 Active TAKE 1 TABLET BY MOUTH ONCE A DAY Losartan Potassium-HCTZ [facility] 99855197187 0 Active TAKE 1 TABLET BY MOUTH EVERY DAY Omeprazole [facility] 83314502342 40 MG Orally Once a day Active [address] [facility] 25393439123 1 GM Orally Twice a day Active 1 tablet on an empty stomach Hydrochlorothiazide [facility] 20012355827 12.5 MG Orally Once a day Active [address] [facility] 20447101109 25 MG Orally Once a day Active [address] [facility] 66635557920 600 Active TAKE 1 TABLET BY MOUTH TWICE DAILY Nitrostat [facility] 84078685014 0.4 MG Sublingual as needed (prn) December 15, 2014 Active as directed Macrodantin [facility] 12587208037 50 mg Orally Once a day Active 1 capsule with food or milk Vital Signs Date/Time: April 18, 2018 BMI 26.38 Index Weight 133.3 lbs Height 59.6 in Temperature 97.6 F Cardiac Monitoring Heart Rate 63 /min Blood Pressure Diastolic 42 mm Hg Blood Pressure Systolic 141 mm Hg Results No Known Results Summary Purpose [employer]Works Submission
--- OUTSIDE RECORDS SUMMARY | 2019-05-23 06:47 | XMS REPORT ---
Author Author Alexey Cruz Organization [employer] Address Unknown Phone Unavailable Care Team Providers Care Business Dean Name Role Phone Alexey Cruz CP Unavailable [...]
--- OUTSIDE RECORDS SUMMARY | 2019-05-23 06:47 | XMS REPORT ---
Author Author Alexey Cruz Organization [employer] Address Unknown Phone Unavailable Care Team Providers Care Dental Technician Name Role Phone Alexey Cruz CP [...] Date End Date Status Dosage Meclizine HCl [facility] 04941085716 12.5 MG Orally twice a day (bid) Active 1 tablet Results No Known Results Summary Purpose [employer] Submission
--- OUTSIDE RECORDS SUMMARY | 2019-05-23 06:47 | XMS REPORT ---
Author Author Aleexy Cruz Organization [employer] Address Unknown Phone Unavailable Care Team Providers Care Technical Supervisor Name Role Phone Alexey Cruz CP [...] End Date Status Dosage Metoprolol Succinate ER [facility] 78948484381 50 Orally Once a day Active TAKE 1 TABLET BY MOUTH ONCE A DAY Results No Known Results Summary Purpose [employer] Submission
--- OUTSIDE RECORDS SUMMARY | 2019-05-23 06:48 | XMS REPORT ---
Author Author Alexey Cruz Organization [employer] Address Unknown Phone Unavailable Care Team Providers Care Seafood And Service Meat Manager Name Role Phone Alexey Cruz CP Unavailable Encounters Encounter Location Date Unknown [facility] May 20, 2014 Unknown [facility] May 20, 2014 Unknown [facility] May 26, 2014 Unknown [facility] May 26, 2014 Unknown [facility] May 04, 2014 ECHO [facility] May 05, 2014 CAROTID DOPPLER [facility] May 12, 2014 AAA SCREEEN [facility] May 26, 2014 Unknown [facility] May 26, 2014 Problems Problem Type Condition ICD-9 Code Onset Dates Condition Status Problem 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 Active Problem Personal history of colonic polyps V12.72 Active Problem Depressive disorder, not elsewhere 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 Active Problem Abdominal aneurysm without mention of rupture 441.4 Active Problem Occlusion and stenosis of carotid artery without mention of cerebral infarction 433.10 Active Problem Vaginal dryness, menopausal 627.2 Active Problem CAD (Coronary atherosclerosis of unspecified type of vessel, hopi or graft) 414.00 Active Problem Generalized osteoarthrosis, 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 Problem 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 Are you a: never smoker May 11, 2014 Use of recreational / street drugs? . Answer: No May 11, 2014 Do you drink alcohol? . Status: No May 11, 2014 Summary Purpose [employer]ClinicalWorks Submission
--- OUTSIDE RECORDS SUMMARY | 2019-05-23 06:48 | XMS REPORT ---
Author Author Alexey Cruz [facility] [employer] Address Unknown Phone Unavailable Care Team Providers Care Policy Intern Name Role Phone Alexey Cruz Unavailable Encounters Encounter Location Date Unknown [facility] May 20, 2014 Unknown [facility] May 20, 2014 Unknown [facility] May 26, 2014 Unknown [facility] May 26, 2014 Unknown [facility] May 04, 2014 ECHO [facility] May 05, 2014 CAROTID DOPPLER [facility] May 12, 2014 Unknown [facility] Jun 15, 2014 AAA SCREEEN [facility] May 26, 2014 Unknown [facility] May 26, 2014 Unknown [facility] Oct 12, 2014 Unknown [facility] Oct 06, 2014 Unknown [facility] Oct 12, 2014 Unknown [facility] Jul 08, 2014 Unknown [facility] Aug 07, 2014 Other [facility] Jul 21, 2014 Unknown [facility] Jul 20, 2014 Problems Problem Type Condition ICD-9 Code [...] (Coronary atherosclerosis of unspecified type of vessel, [place] or graft) 414.00 Active Problem Generalized osteoarthrosis, [...] Instructions Start Date End Date Status Dosage Zocor 20 mg Tab Unknown 0 20 mg mg by mouth once every night April 19, 2011 Aug 02, 2015 Active 1 tablet Neurontin [facility] [address]-89 600MG by mouth twice a day (bid) December 11, 2008 Active 1 tablet Social History Social History Element Qualifiers Date Reported Tobacco Use: . Are you a: never smoker Sep 10, 2014 Use of recreational / street drugs? . Answer: No Sep 10, 2014 Do you drink alcohol? . Status: No Sep 10, 2014 Summary Purpose [employer]ClinicalWorks Submission
--- OUTSIDE RECORDS SUMMARY | 2019-05-23 06:48 | XMS REPORT ---
Author Author Alexey Cruz [facility] eClinicalWorks Address Unknown Phone Unavailable Care Team Providers Care Environmental Lawyer Name Role Phone Alexey Cruz CP Unavailable Encounters Encounter Location Date Unknown [facility] May 20, 2014 Unknown [facility] May 20, 2014 Unknown [facility] May 26, 2014 Unknown [facility] May 26, 2014 Unknown [facility] May 04, 2014 ECHO [facility] May 05, 2014 CAROTID DOPPLER [facility] May 12, 2014 Unknown [facility] Jun 15, 2014 AAA SCREEEN [facility] May 26, 2014 Unknown [facility] May 26, 2014 Unknown [facility] Jul 08, 2014 Unknown [facility] Aug 07, 2014 Other [facility] Jul 21, 2014 Unknown [facility] Jul 20, 2014 Problems Problem Type Condition [...] (Coronary atherosclerosis of unspecified type of vessel, [place] or graft) 414.00 Active Problem Generalized osteoarthrosis, [...] Date End Date Status [facility]os[facility] 8115[facility] 10MG by mouth once a day Aug 07, 2014 Active 1 tablet Social History Social History Element Qualifiers Date Reported Tobacco Use: . Are you a: never smoker Jul 08, 2014 Use of recreational / street drugs? . Answer: No Jul 08, 2014 Do you drink alcohol? . Status: No Jul 08, 2014 Summary Purpose eClinicalWorks Submission
--- OUTSIDE RECORDS SUMMARY | 2019-05-23 06:48 | XMS REPORT ---
Author Author Alexey Cruz Organization [employer] Address Unknown Phone Unavailable Care Team Providers Care Cone Picker Name Role Phone Alexey Cruz CP Unavailable Allergies, Adverse Reactions, Alerts Substance Reaction Event Type Sulfa Info Not Available Drug Allergy morphine Info Not Available Non Drug Allergy Problems Problem Type Condition Code Onset Dates Condition Status Assessment Peripheral neuropathic pain G62.9 Active Assessment Benign essential hypertension I10 Active Problem Acute gastric ulcer K25.3 Active Assessment Other dysphagia R13.19 Active Problem Other and unspecified hyperlipidemia E78.5 Active Assessment Laryngospasm J38.5 Active Problem Polyneuropathy G62.9 Active Problem Polyosteoarthritis [...] Start Date End Date Status Dosage Losartan Potassium-HCTZ [facility] 63254524764 50-12.5 MG Orally Once a day Active 1 tablet Isosorbide Mononitrate CR [facility] 09981173866 30 mg Orally Once a day May 21, 2018 Active 1 tablet in the morning Myrbetriq [place] 12340998098 25 MG Orally Once a day Active 1 tablet Nitrostat [facility] 88819340954 0.4 MG Sublingual as needed (prn) December 15, 2014 Active as directed Xarelto [facility] 01927886003 20 MG Orally Once a day March 20, 2017 Active 1 tablet with food PredniSONE [facility] 58800023427 5 MG Orally Once a day Active 1 tablet Isosorbide Mononitrate CR [facility] 36197098466 30 mg Orally Once a day Active 1 tablet in the morning Gabapentin [facility] 48856169817 300 MG Orally twice a day (bid) Active TAKE 1 TABLET BY MOUTH TWICE DAILY Cipro [facility] 35123043677 250 MG Active 1 TABLET DAILY ORALLY 90 DAYS Paxil [facility] 85928715859 20 mg Orally Once a day December 19, 2017 Active 1 tablet in the morning Levothyroxine Sodium [facility] 53554995384 50 MCG Orally Once a day Active 1 tablet isosorbide mononitrate ER 30 mg Tab NDC 0 30 mg mg by mouth every day (qd) Jul 17, 2011 Active 1 tablet Tegretol [facility] 06176992563 200 MG Orally daily Active 1/2 half tablet Omeprazole [facility] 97397648459 40 MG Orally Once a day Active 1 capsule Levothyroxine Sodium [facility] 09383417320 25 MCG Orally Once a day Active 1 tablet Macrodantin [facility] 10889882135 50 mg Orally Once a day Active 1 capsule with food or milk Clonazepam ODT ND 0 0.125 MG Orally Once a day May 23, 2018 Active 1 tablet on the tongue and allow to dissolve before bedtime Metoprolol Succinate ER [facility] 61516996731 50 Active TAKE 1 TABLET BY MOUTH ONCE A DAY Sucralfate [facility] 28329005417 1 GM Orally Twice a day Active 1 tablet on an empty stomach Meclizine HCl [facility] 11573964779 12.5 MG Orally Once a day Active 2 tablets as needed Naproxen [facility] 53914338181 500 MG Orally every 12 hrs Active 1 tablet with food or milk as needed Losartan Potassium [facility] 86918437147 50 MG Orally Once a day December 04, 2016 Active 1 tablet Sertraline HCl [facility] 33591740525 25 MG Orally Once a day Active 1 tablet Aspir-81 [facility] 74184812813 81 MG Orally Once a day Active 1 tablet Hydrochlorothiazide [facility] 70895633412 12.5 MG Orally Once a day Active 1 capsule Vital Signs Date/Time: May 23, 2018 Cardiac Monitoring Heart Rate 66 /min Blood Pressure Diastolic 47 mm Hg Blood Pressure Systolic 137 mm Hg Temperature 97.6 F Results No Known Results Summary Purpose eClinicalWorks Submission
--- OUTSIDE RECORDS SUMMARY | 2019-05-23 06:48 | XMS REPORT ---
Author Author Alexey Cruz [facility] eClinicalWorks Address Unknown Phone Unavailable Care Team Providers Care Epic Ambulatory Analysts Name Role Phone Alexey Cruz Unavailable Encounters Encounter Location Date Unknown [facility] May 20, 2014 Unknown [facility] May 20, 2014 Unknown [facility] May 26, 2014 Unknown [facility] May 26, 2014 Unknown [facility] May 04, 2014 ECHO [facility] May 05, 2014 CAROTID DOPPLER [facility] May 12, 2014 Unknown [facility] Jun 15, 2014 AAA SCREEEN [facility] May 26, 2014 Unknown [facility] May 26, 2014 Unknown [facility] Oct 06, 2014 Unknown [facility] Jul 08, 2014 Unknown [facility] Aug 07, 2014 Other [facility] Jul 21, 2014 Unknown [facility] Jul 20, 2014 Social History Social History Element Qualifiers Date Reported Tobacco Use: . Are you a: never smoker Sep 10, 2014 Use of recreational / street drugs? . Answer: No Sep 10, 2014 Do you drink alcohol? . Status: No Sep 10, 2014 Summary Purpose eClinicalWorks Submission
--- OUTSIDE RECORDS SUMMARY | 2019-05-23 06:48 | XMS REPORT ---
Author Author Alexey Cruz [facility] eClinicalWorks Address Unknown Phone Unavailable Care Team Providers Care Pneumatic Jack Operator Name Role Phone Alexey Cruz CP Unavailable Encounters Encounter Location Date Unknown [facility] May 20, 2014 Unknown [facility] May 20, 2014 Unknown [facility] May 26, 2014 Unknown [facility] May 26, 2014 Unknown [facility] May 04, 2014 ECHO [facility] May 05, 2014 CAROTID DOPPLER [facility] May 12, 2014 AAA SCREEEN [facility] May 26, 2014 Unknown [facility] May 26, 2014 Problems Problem Type Condition [...] (Coronary atherosclerosis of unspecified type of vessel, [place] or graft) 414.00 Active Problem Generalized osteoarthrosis, 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 Are you a: never smoker May 11, 2014 Use of recreational / street drugs? . Answer: No May 11, 2014 Do you drink alcohol? . Status: No May 11, 2014 Summary Purpose eClinicalWorks Submission
--- OUTSIDE RECORDS SUMMARY | 2019-05-23 06:48 | XMS REPORT ---
Author Author Alexey Cruz [facility] eClinicalWorks Address Unknown Phone Unavailable Care Team Providers Care Gas Plant Worker Name Role Phone Alexey Cruz CP Unavailable Encounters Encounter Location Date Unknown [facility] May 20, 2014 Unknown [facility] May 20, 2014 Unknown [facility] May 26, 2014 Unknown [facility] May 26, 2014 Unknown [facility] May 04, 2014 ECHO [facility] May 05, 2014 CAROTID DOPPLER [facility] May 12, 2014 Unknown [facility] Jun 15, 2014 AAA SCREEEN [facility] May 26, 2014 Unknown [facility] May 26, 2014 Unknown [facility] Jul 20, 2014 Unknown [facility] Jul 08, 2014 Other [facility] Jul 21, 2014 Problems Problem Type Condition ICD-9 Code [...] (Coronary atherosclerosis of unspecified type of vessel, [place] or graft) 414.00 Active Problem Generalized osteoarthrosis, [...] Date End Date Status [facility]os[facility] 2716[facility]16 10MG by mouth once a day Aug [...]
--- OUTSIDE RECORDS SUMMARY | 2019-05-23 06:48 | XMS REPORT ---
Author Author Alexey Cruz [facility] eClinicalWorks Address Unknown Phone Unavailable Care Team Providers Care Cable Installer Name Role Phone Alexey Cruz Unavailable Encounters Encounter Location Date Unknown [facility] Jun 15, 2014 Unknown [facility] Apr 26, 2015 Unknown [facility] Oct 12, 2014 Unknown [facility] November 23, 2014 Unknown [facility] Oct 06, 2014 Unknown [facility] Oct 12, 2014 Unknown [facility] Jul 08, 2014 Unknown [facility] Aug 07, 2014 Other [facility] Jul 21, 2014 Unknown [facility] Jul 20, 2014 Unknown [facility] December 09, 2014 Unknown [facility] May 20, 2014 Unknown [facility] May 20, 2014 Unknown [facility] May 26, 2014 Unknown [facility] May 26, 2014 Unknown [facility] May 04, 2014 ECHO [facility] May 05, 2014 CAROTID DOPPLER [facility] May 12, 2014 Unknown [facility] December 21, 2014 Unknown [facility] December 15, 2014 AAA SCREEEN [facility] May 26, 2014 Unknown [facility] May 26, 2014 Unknown [facility] February 05, 2015 Unknown [facility] February 09, 2015 black stools,nausea [facility] Apr 27, 2014 Unknown [facility] April 05, 2015 Unknown [facility] December 21, 2014 Unknown [facility] January 05, 2015 Unknown [facility] January 07, 2015 Unknown [facility] January 15, 2015 Problems Problem Type Condition ICD-9 Code Onset [...] (Coronary atherosclerosis of unspecified type of vessel, [place] or graft) 414.00 Active Problem Generalized osteoarthrosis, [...] Instructions Start Date End Date Status Dosage losartan-hydrochlorothiazide 50 mg-12.5 mg Tab Unknown 0 50-12.5 mg mg by ORAL route every day (qd) Jul 17, 2011 April 20, 2016 Active take Social History Social History Element Qualifiers Date Reported Tobacco Use: . Are you a: never smoker April 05, 2015 Use of recreational / street drugs? . Answer: No April 05, 2015 Do you drink alcohol? . Status: No April 05, 2015 Summary Purpose eClinicalWorks Submission
--- OUTSIDE RECORDS SUMMARY | 2019-05-23 06:48 | XMS REPORT ---
Author Author Alexey Cruz [facility] eClinicalWorks Address Unknown Phone Unavailable Care Team Providers Care Clock And Watch Assembler Name Role Phone Alexey Cruz CP Unavailable Encounters Encounter Location Date Unknown [facility] May 20, 2014 Unknown [facility] May 20, 2014 Unknown [facility] May 26, 2014 Unknown [facility] May 26, 2014 Unknown [facility] May 04, 2014 ECHO [facility] May 05, 2014 CAROTID DOPPLER [facility] May 12, 2014 Unknown [facility] Jun 15, 2014 AAA SCREEEN [facility] May 26, 2014 Unknown [facility] May 26, 2014 Unknown [facility] Jul 20, 2014 Unknown [facility] Jul 08, 2014 Other [facility] Jul 21, 2014 Problems Problem Type Condition [...] (Coronary atherosclerosis of unspecified type of vessel, [place] or graft) 414.00 Active Problem Generalized osteoarthrosis, [...] Start Date End Date Status Dosage Cipro [facility] [address]-96 250 MG Orally Twice a day Jun 15, 2014 Jun 25, 2014 Active 1 tablet Social History Social History Element Qualifiers Date Reported Tobacco Use: . Are you a: never smoker Jul 08, 2014 Use of recreational / street drugs? . Answer: No Jul 08, 2014 Do you drink alcohol? . Status: No Jul 08, 2014 Summary Purpose eClinicalWorks Submission
--- OUTSIDE RECORDS SUMMARY | 2019-05-23 06:48 | XMS REPORT ---
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 Problem Occlusion and stenosis of carotid artery without mention of cerebral infarction 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 Active Problem 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 Problem Vaginal dryness, menopausal 627.2 Active Problem Generalized osteoarthrosis, 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 Are you a: never smoker May 11, 2014 Use of recreational / street drugs? . Answer: No May 11, 2014 Do you drink alcohol? . Status: No May 11, 2014 Summary Purpose eClinicalWorks Submission
--- OUTSIDE RECORDS SUMMARY | 2019-05-23 06:48 | XMS REPORT ---
Author Author Alexey Cruz [facility] eClinicalWorks Address Unknown Phone Unavailable Care Team Providers Care Monorail Operator Name Role Phone Alexey Cruz CP Unavailable Encounters Encounter Location Date Unknown [facility] May 20, 2014 Unknown [facility] May 20, 2014 Unknown [facility] May 26, 2014 Unknown [facility] May 26, 2014 Unknown [facility] May 04, 2014 ECHO [facility] May 05, 2014 CAROTID DOPPLER [facility] May 12, 2014 Unknown [facility] Jun 15, 2014 AAA SCREEEN [facility] May 26, 2014 Unknown [facility] May 26, 2014 Unknown [facility] Oct 12, 2014 Unknown [facility] Oct 06, 2014 Unknown [facility] Oct 12, 2014 Unknown [facility] Jul 08, 2014 Unknown [facility] Aug 07, 2014 Other [facility] Jul 21, 2014 Unknown [facility] Jul 20, 2014 Problems Problem Type Condition [...] (Coronary atherosclerosis of unspecified type of vessel, [place] or graft) 414.00 Active Problem Generalized osteoarthrosis, 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 Are you a: never smoker Sep 10, 2014 Use of recreational / street drugs? . Answer: No Sep 10, 2014 Do you drink alcohol? . Status: No Sep 10, 2014 Summary Purpose eClinicalWorks Submission
--- OUTSIDE RECORDS SUMMARY | 2019-05-23 06:48 | XMS REPORT ---
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
--- OUTSIDE RECORDS SUMMARY | 2019-05-23 06:48 | XMS REPORT ---
Author Author Alexey Cruz Organization [employer] Address Unknown Phone Unavailable Care Team Providers Care Atmospheric Drier Tender Name Role Phone Alexey Cruz CP Unavailable Allergies, Adverse Reactions, Alerts Substance Reaction Event Type Sulfa Info Not Available Drug Allergy Problems Problem Type Condition Code Onset Dates Condition Status Assessment Polymyalgia rheumatica M35.3 Active Assessment Peripheral neuropathic pain G62.9 Active Assessment Benign essential hypertension I10 Active Problem Acute gastric ulcer K25.3 Active Assessment Dyspnea, unspecified type R06.00 Active Problem Other and unspecified hyperlipidemia E78.5 [...] Start Date End Date Status Dosage Xarelto [facility] 14946921841 20 MG Orally Once a day March 20, 2017 Active 1 tablet with food Hydrochlorothiazide [facility] 74960516081 12.5 MG Orally Once a day Active 1 capsule isosorbide mononitrate ER 30 mg Tab NDC 0 30 mg mg by mouth every day (qd) Jul 17, 2011 Active 1 tablet Losartan Potassium-HCTZ ND 10899283911 0 Active TAKE 1 TABLET BY MOUTH EVERY DAY Metoprolol Succinate ER [facility] 17966572817 50 Active TAKE 1 TABLET BY MOUTH ONCE A DAY Paxil [facility] 93189275638 20 mg Orally Once a day December 19, 2017 Active 1 tablet in the morning Paxil [facility] 31836229379 20 MG Orally Once a day Active 1 tablet in the morning Sucralfate [facility] 16672256018 1 GM Orally Twice a day Active 1 tablet on an empty stomach Macrodantin [facility] 31299800064 50 mg Orally Once a day Active 1 capsule with food or milk Levothyroxine Sodium [facility] 80554110497 25 MCG Orally Once a day Active 1 tablet Myrbetriq [facility] 17151580439 25 MG Orally Once a day Active 1 tablet Cipro [facility] 60463317924 250 MG Active 1 TABLET DAILY ORALLY 90 DAYS Losartan Potassium [facility] 76266340671 50 MG Orally Once a day December 04, 2016 Active 1 tablet Omeprazole [facility] 53234208906 40 MG Orally Once a day Active 1 capsule Levothyroxine Sodium [facility] 56027442863 50 MCG Orally Once a day Active 1 tablet Gabapentin [facility] 32600177554 600 Active TAKE 1 TABLET BY MOUTH TWICE DAILY PredniSONE [facility] 39408525704 5 MG Orally Once a day Active 1 tablet Nitrostat [facility] 06510013364 0.4 MG Sublingual as needed (prn) December 15, 2014 Active as directed Tegretol [facility] 10946102536 200 MG Orally daily Active 1/2 half tablet Vital Signs Date/Time: May 16, 2018 BMI 26.32 Index Weight 133.0 lbs Height 59.6 in Temperature 97.5 F Cardiac Monitoring Heart Rate 55 /min Blood Pressure Diastolic 39 mm Hg Blood Pressure Systolic 138 mm Hg Results No Known Results Summary Purpose eClinicalWorks Submission
--- OUTSIDE RECORDS SUMMARY | 2019-05-23 06:48 | XMS REPORT ---
Author Author Alexey Cruz [facility] eClinicalWorks Address Unknown Phone Unavailable Care Team Providers Care Pipe Maker Name Role Phone Alexey Cruz CP Unavailable Encounters Encounter Location Date Unknown [facility] May 20, 2014 Unknown [facility] May 20, 2014 Unknown [facility] May 26, 2014 Unknown [facility] May 26, 2014 Unknown [facility] May 04, 2014 ECHO [facility] May 05, 2014 CAROTID DOPPLER [facility] May 12, 2014 AAA SCREEEN [facility] May 26, 2014 Unknown [facility] May 26, 2014 Problems Problem Type Condition [...] (Coronary atherosclerosis of unspecified type of vessel, [place] or graft) 414.00 Active Problem Generalized osteoarthrosis, [...] Instructions Start Date End Date Status Dosage Premarin MED[facility] [address]-05 0.625 MG/GM Vaginal every day (qd) May 11, 2014 Active as directed Premarin MED[facility] [address]-39 1.25 MG Orally Daily for Three Weeks, 1 Week off May 11, 2014 Active 1 tablet Social History Social History Element Qualifiers Date Reported Tobacco Use: . Are you a: never smoker May 11, 2014 Use of recreational / street drugs? . Answer: No May 11, 2014 Do you drink alcohol? . Status: No May 11, 2014 Summary Purpose eClinicalWorks Submission
--- OUTSIDE RECORDS SUMMARY | 2019-05-23 06:48 | XMS REPORT ---
Author Author Alexey Cruz [facility] eClinicalWorks Address Unknown Phone Unavailable Care Team Providers Care Top Loader Name Role Phone Alexey Cruz CP Unavailable Encounters Encounter Location Date Unknown [facility] May 04, 2014 Problems Problem Type Condition ICD-9 Code Onset Dates Condition Status Problem HLD (Other and unspecified hyperlipidemia 272.4 Active Problem Pneumonia due to other specified bacteria 482.89 Active Problem BENIGN HTN (Essential hypertension, benign) 401.1 Active Problem Pure hypercholesterolemia 272.0 Active Assessment Depressive disorder, not elsewhere 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 Active Problem CAD (Coronary atherosclerosis of unspecified type of vessel, [place] or graft) 414.00 Active Assessment 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 Active Problem 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 Are you a: never smoker Apr 27, 2014 Use of recreational / street drugs? . Answer: No Apr 27, 2014 Do you drink alcohol? . Status: No Apr 27, 2014 Summary Purpose eClinicalWorks Submission
--- OUTSIDE RECORDS SUMMARY | 2019-05-23 06:48 | XMS REPORT ---
Author Author Alexey Cruz Organization eClinicalWorks Address Unknown Phone Unavailable Care Team Providers Care Verifying Machine Operator Name Role Phone Alexey Cruz CP Unavailable Allergies, Adverse Reactions, Alerts Substance Reaction Event Type Sulfa Info Not Available Drug Allergy morphine Info Not Available Non Drug Allergy Problems Problem Type Condition Code Onset Dates Condition Status Assessment Other fatigue R53.83 Active Assessment Other malaise R53.81 Active Assessment Macular degeneration (senile) of retina H35.30 Active Assessment Multiple falls R29.6 Active Assessment Odynophagia R13.10 Active Assessment Polymyalgia rheumatica M35.3 Active Assessment Coronary atherosclerosis I25.10 Active Assessment Peripheral neuropathic pain G62.9 Active Assessment Benign essential hypertension I10 Active Problem Other and unspecified hyperlipidemia E78.5 Active Problem Polyneuropathy G62.9 Active Problem Benign essential hypertension I10 Active Problem Anxiety F41.9 Active Problem Carotid stenosis, right I65.21 Active Problem 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 80436097082 40 MG Orally Once a day Active 1 capsule Gabapentin ND 29108493482 300 MG Orally twice a day (bid) Active 1/2 half tablet Cipro [facility] 75419017094 250 MG Active 1 TABLET DAILY ORALLY 90 DAYS Meclizine HCl [facility] 48956704980 12.5 MG Orally Once a day Active 2 tablets as needed Losartan Potassium-HCTZ [facility] 68090004951 50-12.5 MG Orally Once a day Active 1 tablet Losartan Potassium [facility] 66516935557 50 MG Orally Once a day December 04, 2016 Active 1 tablet Paxil [facility] 83631245467 20 mg Orally Once a day December 19, 2017 Active 1 tablet in the morning PredniSONE ND 74902260076 5 MG Orally Once a day Active 1 tablet Myrbetriq [facility] 26661701142 25 MG Orally Once a day Active 1 tablet Xarelto [facility] 44498609679 20 MG Orally Once a day March 20, 2017 Active 1 tablet with food Levothyroxine Sodium [facility] 12677200459 25 MCG Orally Once a day Active 1 tablet Tegretol [facility] 72049255073 200 MG Orally daily Active 1/2 half tablet Levothyroxine Sodium [facility] 80767273733 50 MCG Orally Once a day Active 1 tablet Myrbetriq [facility] 07577022022 25 MG Orally Once a day Jun 20, 2018 March 17, 2019 Active 1 tablet Isosorbide Mononitrate CR [facility] 88090456941 30 mg Orally Once a day Active 1 tablet in the morning Nitrostat [facility] 92349690402 0.4 MG Sublingual as needed (prn) December 15, 2014 Active as directed Metoprolol Succinate ER [facility] 25656863239 50 Active TAKE 1 TABLET BY MOUTH ONCE A DAY Aspir-[address] [facility] 26780431297 81 MG Orally Once a day Active 1 tablet Hydrochlorothiazide [facility] 28136658209 12.5 MG Orally Once a day Active 1 capsule Sertraline HCl [facility] 62317231391 25 MG Orally Once a day Active 1 tablet Isosorbide Mononitrate CR [facility] 42409279489 30 mg Orally Once a day May 21, 2018 Active 1 tablet in the morning Clonazepam ODT [facility] 0 0.125 MG Orally Once a day May 23, 2018 Active 1 tablet on the tongue and allow to dissolve before bedtime Vital Signs Date/Time: Jun 20, 2018 BMI 26.32 Index Weight 133.0 lbs Height 59.6 in Temperature 96.1 F Cardiac Monitoring Heart Rate 59 /min Blood Pressure Diastolic 49 mm Hg Blood Pressure Systolic 146 mm Hg Results No Known Results Summary Purpose eClinicalWorks Submission
--- OUTSIDE RECORDS SUMMARY | 2019-05-23 06:48 | XMS REPORT ---
Author Author Alexey Cruz [facility] eClinicalWorks Address Unknown Phone Unavailable Care Team Providers Care Adjunct Physics Instructor Name Role Phone Alexey Cruz CP Unavailable Encounters Encounter Location Date Unknown [facility] May 20, 2014 Unknown [facility] May 20, 2014 Unknown [facility] May 26, 2014 Unknown [facility] May 26, 2014 Unknown [facility] May 04, 2014 ECHO [facility] May 05, 2014 CAROTID DOPPLER [facility] May 12, 2014 AAA SCREEEN [facility] May 26, 2014 Unknown [facility] May 26, 2014 Problems Problem Type Condition [...] (Coronary atherosclerosis of unspecified type of vessel, [place] or graft) 414.00 Active Problem Generalized osteoarthrosis, [...]
--- OUTSIDE RECORDS SUMMARY | 2019-05-23 06:48 | XMS REPORT ---
Author Author Alexey Cruz Organization eClinicalWorks Address Unknown Phone Unavailable Care Team Providers Care Electrostatic Paint Operator Name Role Phone Alexey Cruz CP Unavailable Encounters Encounter Location Date Unknown [facility] May 04, 2014 ECHO [facility] May 05, 2014 CAROTID DOPPLER [facility] May 12, 2014 Problems Problem Type Condition ICD-9 Code Onset Dates Condition Status Problem HLD (Other and unspecified hyperlipidemia 272.4 Active Problem Pneumonia due to other specified bacteria 482.89 Active Problem BENIGN HTN (Essential hypertension, benign) 401.1 Active Assessment 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 Are you a: never smoker May 11, 2014 Use of recreational / street drugs? . Answer: No May 11, 2014 Do you drink alcohol? . Status: No May 11, 2014 Summary Purpose eClinicalWorks Submission
--- OUTSIDE RECORDS SUMMARY | 2019-05-23 06:48 | XMS REPORT ---
Author Author Alexey Cruz Organization eClinicalWorks Address Unknown Phone Unavailable Care Team Providers Care Silo Tender Name Role Phone Alexey Cruz CP Unavailable Allergies, Adverse Reactions, Alerts Substance Reaction Event Type Sulfa Info Not Available Drug Allergy Encounters Encounter Location Date Unknown [facility] Jun 15, 2014 Unknown [facility] Oct 12, 2014 Unknown [facility] November 23, 2014 Unknown [facility] Oct 06, 2014 Unknown [facility] Oct 12, 2014 Unknown [facility] Jul 08, 2014 Unknown [facility] Aug 07, 2014 Other [facility] Jul 21, 2014 Unknown [facility] Jul 20, 2014 Unknown [facility] December 09, 2014 Unknown [facility] May 20, 2014 Unknown [facility] May 20, 2014 Unknown [facility] May 26, 2014 Unknown [facility] May 26, 2014 Unknown [facility] May 04, 2014 ECHO [facility] May 05, 2014 CAROTID DOPPLER [facility] May 12, 2014 Unknown [facility] December 21, 2014 Unknown [facility] December 15, 2014 AAA SCREEEN [facility] May 26, 2014 Unknown [facility] May 26, 2014 Unknown [facility] February 05, 2015 Unknown [facility] February 09, 2015 black stools,nausea [facility] Apr 27, 2014 Unknown [facility] April 05, 2015 Unknown [facility] December 21, 2014 Unknown [facility] January 05, 2015 Unknown [facility] January 07, 2015 Unknown [facility] January 15, 2015 Problems Problem Type Condition [...] (Coronary atherosclerosis of unspecified type of vessel, [place] or graft) 414.00 Active Problem Generalized osteoarthrosis, 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 Problem 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 Problem Pure hypercholesterolemia 272.0 Active Assessment CAD (Coronary atherosclerosis of unspecified type of vessel, [place] or graft) 414.00 Active Assessment HLD (Other and unspecified hyperlipidemia 272.4 Active Problem Mononeuritis of unspecified site 355.9 Active Problem HLD (Other and unspecified hyperlipidemia 272.4 Active Assessment BENIGN HTN (Essential hypertension, benign) 401.1 Active Problem BENIGN HTN (Essential hypertension, benign) 401.1 Active Assessment 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 Problem Pneumonia due to other specified bacteria 482.89 Active Medications Medication Code System Code Instructions Start Date End Date Status Dosage [facility] [address]-81 EQ 50MG BASE BID BID May 27, 2009 Active TABLET; ORAL isosorbide mononitrate ER 30 mg Tab Unknown 0 30 mg mg by ORAL route Jul 17, 2011 Active take folic acid 1 mg tablet Unknown 0 1 mg mg by mouth every day (qd) April 03, 2012 March 30, 2016 Active 1 tablet Levothyroxine Sodium [facility] [address]-91 50 MCG Orally Once a day Active 1 tablet Metoprolol Succinate ER 25 mg 24 hr Tab Unknown 0 25 mg by mouth every day (qd) April 03, 2012 Aug 02, 2015 Active 1 tablet Zocor 20 mg Tab Unknown 0 20 mg mg by mouth once every night April 19, 2011 December 31, 2015 Active 1 tablet Neurontin [facility] [address]-63 600MG by mouth twice a day (bid) December 11, 2008 Active 1 tablet Omeprazole [facility] [address]-18 20 mg Orally Once a day Active 1 capsule Nitrostat [facility] [address]-03 0.4 MG Sublingual as needed (prn) December 15, 2014 Active as directed losartan-hydrochlorothiazide 50 mg-12.5 mg Tab Unknown 0 50-12.5 mg mg by ORAL route Jul 17, 2011 Active take Cyclobenzaprine HCl [facility] [address]-59 10 mg Orally Three times a day March 30, 2016 Active 1 tablet Premarin [facility] [address]-70 0.625 MG/GM Vaginal every day (qd) May 11, 2014 Active as directed Bactroban [facility] [address]-05 2 % Externally Three times a day April 05, 2015 April 12, 2015 Active 1 application to affected area Social History Social History Element Qualifiers Date Reported Tobacco Use: . Are you a: never smoker April 05, 2015 Use of recreational / street drugs? . Answer: No April 05, 2015 Do you drink alcohol? . Status: No April 05, 2015 Family history Qualifier Description Comment Date Reported Maternal Grandmother Comment not available April [...] Other: Comment not available April 05, 2015 Vital Signs Date/Time: April 05, 2015 Weight 125.3 lbs Height 59.2 in Temperature 97.6 F Cardiac Monitoring Heart Rate 58 /min Blood Pressure Diastolic 30 mm Hg Blood Pressure Systolic 109 mm Hg Summary Purpose eClinicalWorks Submission
--- OUTSIDE RECORDS SUMMARY | 2019-05-23 06:48 | XMS REPORT ---
Author Author Alexey Cruz [facility] eClinicalWorks Address Unknown Phone Unavailable Care Team Providers Care Silviculturist Name Role Phone Alexey Cruz CP Unavailable Encounters Encounter Location Date Unknown [facility] May 20, 2014 Unknown [facility] May 20, 2014 Unknown [facility] May 26, 2014 Unknown [facility] May 26, 2014 Unknown [facility] May 04, 2014 ECHO [facility] May 05, 2014 CAROTID DOPPLER [facility] May 12, 2014 AAA SCREEEN [facility] May 26, 2014 Unknown [facility] May 26, 2014 Problems Problem Type [...] (Coronary atherosclerosis of unspecified type of vessel, [place] or graft) 414.00 Active Problem Generalized osteoarthrosis, [...] Date End Date Status Dosage Cyclobenzaprine HCl MEDISPAN 69363624462 10MG by mouth once a day Jul 19, 2014 Active 1 tablet Social History Social History Element Qualifiers Date Reported Tobacco Use: . Are you a: never smoker May 11, 2014 Use of recreational / street drugs? . Answer: No May 11, 2014 Do you drink alcohol? . Status: No May 11, 2014 Summary Purpose eClinicalWorks Submission
--- OUTSIDE RECORDS SUMMARY | 2019-05-23 06:48 | XMS REPORT ---
Author Author Alexey Cruz [facility] eClinicalWorks Address Unknown Phone Unavailable Care Team Providers Care Integrated Logistics Support Manager Name Role Phone Alexey Cruz Unavailable Encounters Encounter Location Date Unknown [facility] May 20, 2014 Unknown [facility] May 20, 2014 Unknown [facility] May 26, 2014 Unknown [facility] May 26, 2014 Unknown [facility] May 04, 2014 ECHO [facility] May 05, 2014 CAROTID DOPPLER [facility] May 12, 2014 Unknown [facility] Jun 15, 2014 AAA SCREEEN [facility] May 26, 2014 Unknown [facility] May 26, 2014 Unknown [facility] Jul 08, 2014 Unknown [facility] Aug 07, 2014 Other [facility] Jul 21, 2014 Unknown [facility] Jul 20, 2014 Problems Problem Type Condition [...] (Coronary atherosclerosis of unspecified type of vessel, [place] or graft) 414.00 Active Problem Generalized osteoarthrosis, 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 Problem 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 Problem Pure hypercholesterolemia 272.0 Active Problem Mononeuritis of unspecified site 355.9 Active Problem HLD (Other and unspecified hyperlipidemia 272.4 Active Problem BENIGN HTN (Essential hypertension, benign) 401.1 Active Assessment Dizziness 780.4 Active Problem Pneumonia due to other specified bacteria 482.89 Active Medications Medication Code System Code Instructions Start Date End Date Status Dosage Neurontin MEDISPAN [address]-89 600MG by mouth twice a day (bid) December 11, 2008 Active 1 tablet Zocor 20 mg Tab Unknown 0 20 mg mg by mouth once every night April 19, 2011 Aug 02, 2015 Active 1 tablet folic acid 1 mg tablet Unknown 0 1 mg mg by mouth every day (qd) April 03, 2012 Aug 02, 2015 Active 1 tablet Synthroid [facility] [address]-08 50 MCG Orally Once a day May 11, 2014 Active 1 tablet on an empty stomach in the morning omeprazole ER 20 mg capsule,extended release Unknown 0 20 mg by mouth every day (qd) Jun 04, 2013 Sep 08, 2014 Active 1 capsule Metoprolol Succinate ER 25 mg 24 hr Tab Unknown 0 25 mg by mouth every day (qd) April 03, 2012 Aug 02, 2015 Active 1 tablet Social History Social History Element Qualifiers Date Reported Tobacco Use: . Are you a: never smoker Jul 08, 2014 Use of recreational / street drugs? . Answer: No Jul 08, 2014 Do you drink alcohol? . Status: No Jul 08, 2014 Summary Purpose eClinicalWorks Submission
--- OUTSIDE RECORDS SUMMARY | 2019-05-23 06:48 | XMS REPORT ---
Author Author Alexey Cruz [facility] eClinicalWorks Address Unknown Phone Unavailable Care Team Providers Care Chief Administrative Officer Name Role Phone Alexey Cruz CP Unavailable Encounters Encounter Location Date Unknown [facility] May 20, 2014 Unknown [facility] May 20, 2014 Unknown [facility] May 26, 2014 Unknown [facility] May 26, 2014 Unknown [facility] May 04, 2014 ECHO [facility] May 05, 2014 CAROTID DOPPLER [facility] May 12, 2014 AAA SCREEEN [facility] May 26, 2014 Unknown [facility] May 26, 2014 Problems Problem Type Condition [...] (Coronary atherosclerosis of unspecified type of vessel, [place] or graft) 414.00 Active Problem Generalized osteoarthrosis, [...] Date End Date Status Dosage Cyclobenzaprine HCl [facility] 46360585226 10MG by mouth once a day Jul 19, 2014 Active 1 tablet omeprazole ER 20 mg capsule,extended release Unknown 0 20 mg by mouth every day (qd) Jun 04, 2013 Sep 08, 2014 Active 1 capsule Social History Social History Element Qualifiers Date Reported Tobacco Use: . Are you a: never smoker May 11, 2014 Use of recreational / street drugs? . Answer: No May 11, 2014 Do you drink alcohol? . Status: No May 11, 2014 Summary Purpose eClinicalWorks Submission
--- OUTSIDE RECORDS SUMMARY | 2019-05-23 06:49 | XMS REPORT ---
Author Author Alexey Cruz Organization eClinicalWorks Address Unknown Phone Unavailable Care Team Providers Care Block Press Operator Name Role Phone Alexey Cruz Unavailable Allergies, Adverse Reactions, Alerts Substance Reaction Event Type Sulfa Info Not Available Drug Allergy Encounters Encounter Location Date Unknown [facility] Jun 15, 2014 Unknown [facility] May 10, 2015 Unknown [facility] May 05, 2015 Unknown [facility] Apr 26, 2015 Unknown [facility] Jul 12, 2015 Unknown [facility] Oct 12, 2014 Unknown [facility] Jul 15, 2015 Unknown [facility] November 23, 2014 Unknown [facility] May 14, 2015 Unknown [facility] Oct 06, 2014 Unknown [facility] Jul 06, 2015 Unknown [facility] Oct 12, 2014 Unknown [facility] Aug 09, 2015 Unknown [facility] Jul 08, 2014 Unknown [facility] Aug 07, 2014 Unknown [facility] Jul 15, 2015 Other [facility] Jul 21, 2014 Unknown [facility] Jul 30, 2015 Unknown [facility] Jul 20, 2014 Unknown [facility] December 09, 2014 Unknown [facility] May 20, 2014 Unknown [facility] May 20, 2014 Unknown [facility] May 26, 2014 Unknown [facility] May 26, 2014 Unknown [facility] May 04, 2014 ECHO [facility] May 05, 2014 CAROTID DOPPLER [facility] May 12, 2014 Unknown [facility] December 21, 2014 Unknown [facility] December 15, 2014 AAA SCREEEN [facility] May 26, 2014 Unknown [facility] May 26, 2014 Unknown [facility] February 05, 2015 Unknown [facility] February 09, 2015 black stools,nausea [facility] Apr 27, 2014 Unknown [facility] April 05, 2015 Unknown [facility] December 21, 2014 Unknown [facility] January 05, 2015 Unknown [facility] January 07, 2015 Unknown [facility] January 15, 2015 Problems Problem Type Condition ICD-9 Code Onset Dates Condition Status Assessment Acute cystitis without hematuria N30.00 Active Problem 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 Problem Symptomatic menopausal or female climacteric states N95.1 Active Problem Benign essential hypertension I10 Active Problem Peripheral neuropathic pain G62.9 Active Problem Pure hypercholesterolemia E78.0 Active Problem History of colonic polyps Z86.010 Active Problem Depressive disorder, 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 Active Problem Coronary atherosclerosis I25.10 Active Problem Generalized osteoarthrosis, 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 Active Assessment Encounter for immunization Z23 Active Assessment 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 Assessment Peripheral neuropathic pain G62.9 Active Assessment Benign essential hypertension I10 Active Medications Medication Code System Code Instructions Start Date End Date Status Dosage folic acid 1 mg tablet Unknown 0 1 mg mg by mouth every day (qd) April 03, 2012 March 30, 2016 Active 1 tablet isosorbide mononitrate ER 30 mg Tab Unknown 0 30 mg mg by mouth every day (qd) Jul 17, 2011 Active 1 tablet Zocor 20 mg Tab Unknown 0 20 mg mg by mouth once every night April 19, 2011 May 08, 2016 Active 1 tablet Levothyroxine Sodium [facility] [address]-54 50 MCG Orally Once a day Active 1 tablet Premarin [facility] [address]-40 0.625 MG/GM Vaginal every day (qd) May 11, 2014 Active as directed Omeprazole [facility] [address]-09 20 mg Orally Once a day Active 1 capsule Cipro [facility] [address]-33 250 MG Orally every 12 hrs Active 2 tablets Nitrostat [facility] [address]-93 0.4 MG Sublingual as needed (prn) December 15, 2014 Active as directed Macrobid [facility] [address]-40 100 mg Orally every 12 hrs Aug 09, 2015 Aug 19, 2015 Active 1 capsule with food losartan-hydrochlorothiazide 50 mg-12.5 mg Tab Unknown 0 50-12.5 mg mg by ORAL route every day (qd) Jul 17, 2011 April 20, 2016 Active take Metoprolol Succinate ER [facility] 29180083721 25 Active TAKE 1 TABLET BY MOUTH EVERY DAY Pyridium [facility] [address]-82 200 MG Orally Three times a day Aug 09, 2015 Aug 11, 2015 Active 1 tablet after meals Zoloft [facility] [address]-46 EQ 50MG BASE BID BID May 27, 2009 Active TABLET; ORAL Neurontin [facility] [address]-36 600MG by mouth twice a day (bid) December 11, 2008 Active 1 tablet Cyclobenzaprine HCl [facility] [address]-38 10 mg Orally Three times a day March 30, 2016 Active 1 tablet Nitrofurantoin [facility] [address]-50 50 mg Orally Once a day Aug 09, 2015 February 05, 2016 Active as directed Social History Social History Element Qualifiers Date Reported Tobacco Use: . Are you a: never smoker Aug 09, 2015 Use of recreational / street drugs? . Answer: No Aug 09, 2015 Do you drink alcohol? . 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
--- OUTSIDE RECORDS SUMMARY | 2019-05-23 06:49 | XMS REPORT ---
Author Author Alexey Cruz [facility] eClinicalWorks Address Unknown Phone Unavailable Care Team Providers Care Clinical Aide Name Role Phone Alexey Cruz Unavailable Encounters Encounter Location Date Unknown [facility] May 20, 2014 Unknown [facility] May 20, 2014 Unknown [facility] May 26, 2014 Unknown [facility] May 26, 2014 Unknown [facility] May 04, 2014 ECHO [facility] May 05, 2014 CAROTID DOPPLER [facility] May 12, 2014 Unknown [facility] Jun 15, 2014 AAA SCREEEN [facility] May 26, 2014 Unknown [facility] May 26, 2014 Unknown [facility] Oct 12, 2014 Unknown [facility] November 23, 2014 Unknown [facility] Oct 06, 2014 Unknown [facility] Oct 12, 2014 Unknown [facility] Jul 08, 2014 Unknown [facility] Aug 07, 2014 Other [facility] Jul 21, 2014 Unknown [facility] Jul 20, 2014 Problems Problem Type Condition [...] (Coronary atherosclerosis of unspecified type of vessel, [place] or graft) 414.00 Active Problem Generalized osteoarthrosis, [...] Instructions Start Date End Date Status Dosage Synthroid MEDISPAN [address]-89 50 MCG Orally Once a day May 11, 2014 Active 1 tablet on an empty stomach in the morning Social History Social History Element Qualifiers Date Reported Tobacco Use: . Are you a: never smoker Sep 10, 2014 Use of recreational / street drugs? . Answer: No Sep 10, 2014 Do you drink alcohol? . Status: No Sep 10, 2014 Summary Purpose eClinicalWorks Submission
--- OUTSIDE RECORDS SUMMARY | 2019-05-23 06:49 | XMS REPORT ---
Author Author Alexey Cruz Organization eClinicalWorks Address Unknown Phone Unavailable Care Team Providers Care [place] Worker Name Role Phone Alexey Cruz Unavailable Allergies, Adverse Reactions, Alerts Substance Reaction Event Type Sulfa Info Not Available Drug Allergy Encounters Encounter Location Date Unknown [facility] Jun 15, 2014 Unknown [facility] May 10, 2015 Unknown [facility] May 05, 2015 Unknown [facility] Apr 26, 2015 Unknown [facility] Jul 12, 2015 Unknown [facility] Oct 12, 2014 Unknown [facility] Jul 15, 2015 Unknown [facility] November 23, 2014 Unknown [facility] May 14, 2015 Unknown [facility] Oct 06, 2014 Unknown [facility] Jul 06, 2015 Unknown [facility] Oct 12, 2014 Unknown [facility] Aug 09, 2015 Unknown [facility] Jul 08, 2014 Unknown [facility] Aug 07, 2014 Unknown [facility] Jul 15, 2015 Other [facility] Jul 21, 2014 Unknown [facility] Jul 30, 2015 Unknown [facility] Jul 20, 2014 Unknown [facility] December 09, 2014 Unknown [facility] May 20, 2014 Unknown [facility] May 20, 2014 Unknown [facility] May 26, 2014 Unknown [facility] May 26, 2014 Unknown [facility] May 04, 2014 ECHO [facility] May 05, 2014 CAROTID DOPPLER [facility] May 12, 2014 Unknown [facility] December 21, 2014 Unknown [facility] December 15, 2014 Unknown [facility] Aug 26, 2015 AAA SCREEEN [facility] May 26, 2014 Unknown [facility] Aug 30, 2015 Unknown [facility] May 26, 2014 Unknown [facility] Nov 15, 2015 2 WEEK F/U [facility] Sep 21, 2015 Unknown [facility] 2015 Unknown [facility] February 05, 2015 Unknown [facility] Nov 19, 2015 Unknown [facility] February 09, 2015 Unknown [facility] December 06, 2015 black stools,nausea [facility] Apr 27, 2014 2 week f/u - UTI [facility] November 30, 2015 Unknown [facility] April 05, 2015 Unknown [facility] December 21, 2014 Unknown [facility] January 05, 2015 Unknown [facility] January 07, 2015 Unknown [facility] January 15, 2015 Problems Problem Type Condition ICD-9 Code Onset Dates Condition Status Assessment Recurrent UTI N39.0 Active Problem 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 Problem Symptomatic menopausal or female climacteric states N95.1 Active Problem Benign essential hypertension I10 Active Problem Peripheral neuropathic pain G62.9 Active Problem Pure hypercholesterolemia E78.0 Active Problem History of colonic polyps Z86.010 Active Problem Depressive disorder, 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 Active Problem Coronary atherosclerosis I25.10 Active Problem Generalized osteoarthrosis, 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 Active Assessment Pure hypercholesterolemia E78.0 Active Assessment Coronary atherosclerosis I25.10 Active Assessment Benign essential hypertension I10 Active Medications Medication Code System Code Instructions Start Date End Date Status Dosage Cyclobenzaprine HCl [facility] [address]-43 10 mg Orally Three times a day March 30, 2016 Active 1 tablet Metoprolol Succinate ER [facility] 94225459055 25 Active TAKE 1 TABLET BY MOUTH EVERY DAY Zoloft [facility] [address]-58 EQ 50MG BASE BID BID May 27, 2009 Active TABLET; ORAL losartan-hydrochlorothiazide 50 mg-12.5 mg Tab Unknown 0 50-12.5 mg mg by ORAL route every day (qd) Jul 17, 2011 April 20, 2016 Active take Phenazopyridine HCl [facility] [address]-66 200 MG Orally Three times a day Active 1 tablet after meals Oxybutynin Chloride [facility] [address]-27 5 MG Orally Once a day 2015 May 08, 2016 Active as directed Ciprofloxacin [facility] [address]-08 500 mg Orally twice a day (bid) Active 1 tablet Premarin [facility] [address]-21 0.625 MG/GM Vaginal every day (qd) May 11, 2014 Active as directed Nitrostat [facility] [address]-87 0.4 MG Sublingual as needed (prn) December 15, 2014 Active as directed Zocor 20 mg Tab Unknown 0 20 mg mg by mouth once every night April 19, 2011 May 08, 2016 Active 1 tablet Cipro [facility] [address]-01 250 MG Orally daily November 30, 2015 December 31, 2015 Active 1 tablet Levothyroxine Sodium [facility] [address]-08 50 MCG Orally Once a day Active 1 tablet isosorbide mononitrate ER 30 mg Tab Unknown 0 30 mg mg by mouth every day (qd) Jul 17, 2011 Active 1 tablet folic acid 1 mg tablet Unknown 0 1 mg mg by mouth every day (qd) April 03, 2012 March 30, 2016 Active 1 tablet Omeprazole [facility] [address]-67 20 mg Orally Once a day Active 1 capsule Neurontin [facility] [address]-19 600MG by mouth twice a day (bid) December 11, 2008 Active 1 tablet Social History Social History Element Qualifiers Date Reported Tobacco Use: . Are you a: never smoker November 30, 2015 Use of recreational / street drugs? . Answer: No November 30, 2015 Do you exercise? . Answer: No November 30, 2015 Do you drink alcohol? . Status: No November 30, 2015 Travel outside [place]: . 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, 2015 Vital Signs Date/Time: November 30, 2015 Weight 126 lbs Height 59.6 in Temperature 98.1 F Cardiac Monitoring Heart Rate 61 /min Blood Pressure Diastolic 34 mm Hg Blood Pressure Systolic 105 mm Hg Results [facility] Nitrofurantoin(- ) - Levofloxacin(- ) - Ampicillin(- ) - Ampicillin/Sulbactam(- ) - Cefazolin(- ) - Tetracycline(- ) - Ceftriaxone(- ) - Meropenem(- ) - Cefepime(- ) - Tobramycin(- ) - ESBL Confirmation(- ) - ORGANISM(- ) Escherichia coli Gentamicin(- ) - Trimethoprim/Sulfamethoxazole(- ) - Amikacin(- ) - Piperacillin/Tazobactam(- ) - UA (urinalysis) Urine Culture Summary Purpose eClinicalWorks Submission
--- OUTSIDE RECORDS SUMMARY | 2019-05-23 06:49 | XMS REPORT ---
Author Author Alexey Cruz Organization [employer] Address Unknown Phone Unavailable Care Team Providers Care Pesticide Use Medical Coordinator Name Role Phone Alexey Cruz Unavailable Allergies, Adverse Reactions, Alerts Substance Reaction Event Type Sulfa Info Not Available Drug Allergy Encounters Encounter Location Date Unknown [facility] Jun 15, 2014 Unknown [facility] May 10, 2015 Unknown [facility] May 05, 2015 Unknown [facility] Apr 26, 2015 Unknown [facility] Jul 12, 2015 Unknown [facility] Oct 12, 2014 Unknown [facility] Jul 15, 2015 Unknown [facility] November 23, 2014 Unknown [facility] May 14, 2015 Unknown [facility] Oct 06, 2014 Unknown [facility] Jul 06, 2015 Unknown [facility] Oct 12, 2014 Unknown [facility] Aug 09, 2015 Unknown [facility] Jul 08, 2014 Unknown [facility] Aug 07, 2014 Unknown [facility] Jul 15, 2015 Other [facility] Jul 21, 2014 Unknown [facility] Jul 30, 2015 Unknown [facility] Jul 20, 2014 Unknown [facility] December 09, 2014 Unknown [facility] May 20, 2014 Unknown [facility] May 20, 2014 Unknown [facility] May 26, 2014 Unknown [facility] May 26, 2014 Unknown [facility] May 04, 2014 ECHO [facility] May 05, 2014 CAROTID DOPPLER [facility] May 12, 2014 Unknown [facility] December 21, 2014 Unknown [facility] December 15, 2014 Unknown [facility] Aug 26, 2015 AAA SCREEEN [facility] May 26, 2014 Unknown [facility] Aug 30, 2015 Unknown [facility] May 26, 2014 Unknown [facility] February 05, 2015 Unknown [facility] February 09, 2015 black stools,nausea [facility] Apr 27, 2014 Unknown [facility] April 05, 2015 Unknown [facility] December 21, 2014 Unknown [facility] January 05, 2015 Unknown [facility] January 07, 2015 Unknown [facility] January 15, 2015 Problems Problem Type Condition ICD-9 Code Onset Dates Condition Status Assessment Benign essential hypertension I10 Active Problem 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 Problem Symptomatic menopausal or female climacteric states N95.1 Active Problem Benign essential hypertension I10 Active Problem Peripheral neuropathic pain G62.9 Active Problem Pure hypercholesterolemia E78.0 Active Problem History of colonic polyps Z86.010 Active Problem Depressive disorder, 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 Active Problem Coronary atherosclerosis I25.10 Active Problem Generalized osteoarthrosis, 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 Active Assessment Urinary tract infection, site unspecified N39.0 Active Assessment Depressive disorder, 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 Active Assessment Coronary atherosclerosis I25.10 Active Medications Medication Code System Code Instructions Start Date End Date Status Dosage Cyclobenzaprine HCl [facility] [address]-86 10 mg Orally Three times a day March 30, 2016 Active 1 tablet Omeprazole [facility] [address]-30 20 mg Orally Once a day Active 1 capsule Nitrofurantoin [facility] [address]-50 50 mg Orally Once a day Aug 09, 2015 February 05, 2016 Active as directed Zocor 20 mg Tab Unknown 0 20 mg mg by mouth once every night April 19, 2011 May 08, 2016 Active 1 tablet Pyridium [facility] [address]-86 200 MG Orally Three times a day prn Aug 26, 2015 Sep 05, 2015 Active 1 tablet after meals folic acid 1 mg tablet Unknown 0 1 mg mg by mouth every day (qd) April 03, 2012 March 30, 2016 Active 1 tablet Cipro [facility] [address]-62 250 MG Orally twicw daily for 10 days then 1 daily for 3 months every 12 hrs Aug 14, 2015 Sep 03, 2015 Active 2 tablets Cipro [facility] [address]-34 250 MG Orally every 12 hrs Active 2 tablets Nitrostat [facility] [address]-33 0.4 MG Sublingual as needed (prn) December 15, 2014 Active as directed losartan-hydrochlorothiazide 50 mg-12.5 mg Tab Unknown 0 50-12.5 mg mg by ORAL route every day (qd) Jul 17, 2011 April 20, 2016 Active take isosorbide mononitrate ER 30 mg Tab Unknown 0 30 mg mg by mouth every day (qd) Jul 17, 2011 Active 1 tablet Metoprolol Succinate ER [facility] 91108641871 25 Active TAKE 1 TABLET BY MOUTH EVERY DAY Premarin [facility] [address]-85 0.625 MG/GM Vaginal every day (qd) May 11, 2014 Active as directed AZO Cranberry [facility] [address]230 250-30 MG Orally Active Unknown Neurontin [facility] [address]-14 600MG by mouth twice a day (bid) December 11, 2008 Active 1 tablet Levothyroxine Sodium [facility] [address]-87 50 MCG Orally Once a day Active 1 tablet Zoloft [facility] [address]-96 EQ 50MG BASE BID BID May 27, 2009 Active TABLET; ORAL Social History Social History Element Qualifiers Date Reported Tobacco Use: . Are you a: never smoker Sep 21, 2015 Use of recreational / street drugs? . Answer: No Sep 21, 2015 Do you drink alcohol? . 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
--- OUTSIDE RECORDS SUMMARY | 2019-05-23 06:49 | XMS REPORT ---
Author Author Alexey Cruz [facility] [employer] Address Unknown Phone Unavailable Care Team Providers Care Video Machines Mechanic Name Role Phone Alexey Cruz Unavailable Encounters Encounter Location Date Unknown [facility] May 20, 2014 Unknown [facility] May 20, 2014 Unknown [facility] May 26, 2014 Unknown [facility] May 26, 2014 Unknown [facility] May 04, 2014 ECHO [facility] May 05, 2014 CAROTID DOPPLER [facility] May 12, 2014 Unknown [facility] Jun 15, 2014 Unknown [facility] December 21, 2014 Unknown [facility] December 15, 2014 AAA SCREEEN [facility] May 26, 2014 Unknown [facility] May 26, 2014 Unknown [facility] Oct 12, 2014 Unknown [facility] November 23, 2014 Unknown [facility] Oct 06, 2014 Unknown [facility] Oct 12, 2014 Unknown [facility] December 21, 2014 Unknown [facility] Jul 08, 2014 Unknown [facility] Aug 07, 2014 Other [facility] Jul 21, 2014 Unknown [facility] Jul 20, 2014 Unknown [facility] December 09, 2014 Problems Problem Type Condition ICD-9 Code [...] (Coronary atherosclerosis of unspecified type of vessel, [place] or graft) 414.00 Active Problem Generalized osteoarthrosis, [...] Use: . Are you a: never smoker December 09, 2014 Use of recreational / street drugs? . Answer: No December 09, 2014 Do you drink alcohol? . Status: No December 09, 2014 Summary Purpose [employer]ClinicalWorks Submission
--- OUTSIDE RECORDS SUMMARY | 2019-05-23 06:49 | XMS REPORT ---
Author Author Alexey Cruz [facility] [employer] Address Unknown Phone Unavailable Care Team Providers Care Grill Chef Name Role Phone Alexey Cruz Unavailable Encounters Encounter Location Date Unknown [facility] Jun 15, 2014 Unknown [facility] May 10, 2015 Unknown [facility] May 05, 2015 Unknown [facility] Apr 26, 2015 Unknown [facility] Jul 12, 2015 Unknown [facility] Oct 12, 2014 Unknown [facility] Jul 15, 2015 Unknown [facility] November 23, 2014 Unknown [facility] May 14, 2015 Unknown [facility] Oct 06, 2014 Unknown [facility] Jul 06, 2015 Unknown [facility] Oct 12, 2014 Unknown [facility] Aug 09, 2015 Unknown [facility] Jul 08, 2014 Unknown [facility] Aug 07, 2014 Unknown [facility] Jul 15, 2015 Other [facility] Jul 21, 2014 Unknown [facility] Jul 30, 2015 Unknown [facility] Jul 20, 2014 Unknown [facility] December 09, 2014 Unknown [facility] May 20, 2014 Unknown [facility] May 20, 2014 Unknown [facility] May 26, 2014 Unknown [facility] May 26, 2014 Unknown [facility] May 04, 2014 ECHO [facility] May 05, 2014 CAROTID DOPPLER [facility] May 12, 2014 Unknown [facility] December 21, 2014 Unknown [facility] December 15, 2014 Unknown [facility] Aug 26, 2015 AAA SCREEEN [facility] May 26, 2014 Unknown [facility] Aug 30, 2015 Unknown [facility] May 26, 2014 Unknown [facility] Nov 15, 2015 2 WEEK F/U [facility] Sep 21, 2015 Unknown [facility] 2015 Unknown [facility] February 05, 2015 Unknown [facility] Nov 19, 2015 Unknown [facility] February 09, 2015 Unknown [facility] December 06, 2015 black stools,nausea [facility] Apr 27, 2014 Unknown [facility] April 05, 2015 Unknown [facility] December 21, 2014 Unknown [facility] January 05, 2015 Unknown [facility] January 07, 2015 Unknown [facility] January 15, 2015 Problems Problem [...] Start Date End Date Status Dosage Macrobid [facility] [address]-12 100 mg Orally every 12 hrs December 06, 2015 December 16, 2015 Active 1 capsule with food Cipro [facility] [address]-34 250 MG Orally daily November 30, 2015 December 31, 2015 Inactive 1 tablet Social History Social History Element Qualifiers Date Reported Tobacco Use: . Are you a: never smoker November 30, 2015 Use of recreational / street drugs? . Answer: No November 30, 2015 Do you exercise? . Answer: No November 30, 2015 Do you drink alcohol? . Status: No November 30, 2015 Travel outside [place]: . 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
--- OUTSIDE RECORDS SUMMARY | 2019-05-23 06:49 | XMS REPORT ---
Author Author Alexey Cruz [facility] [employer] Address Unknown Phone Unavailable Care Team Providers Care Automobile Repossessor Name Role Phone Alexey Cruz Unavailable Allergies, Adverse Reactions, Alerts Substance Reaction Event Type Sulfa Info Not Available Drug Allergy Encounters Encounter Location Date Unknown [facility] Jun 15, 2014 Unknown [facility] May 10, 2015 Unknown [facility] May 05, 2015 Unknown [facility] Apr 26, 2015 Unknown [facility] Jul 12, 2015 Unknown [facility] Oct 12, 2014 Unknown [facility] Jul 15, 2015 Unknown [facility] November 23, 2014 Unknown [facility] May 14, 2015 Unknown [facility] Oct 06, 2014 Unknown [facility] Jul 06, 2015 Unknown [facility] Oct 12, 2014 Unknown [facility] Aug 09, 2015 Unknown [facility] Jul 08, 2014 Unknown [facility] Aug 07, 2014 Unknown [facility] Jul 15, 2015 Other [facility] Jul 21, 2014 Unknown [facility] Jul 30, 2015 Unknown [facility] Jul 20, 2014 Unknown [facility] December 09, 2014 Unknown [facility] May 20, 2014 Unknown [facility] May 20, 2014 Unknown [facility] May 26, 2014 Unknown [facility] May 26, 2014 Unknown [facility] May 04, 2014 ECHO [facility] May 05, 2014 CAROTID DOPPLER [facility] May 12, 2014 Unknown [facility] December 21, 2014 Unknown [facility] December 15, 2014 Unknown [facility] Aug 26, 2015 AAA SCREEEN [facility] May 26, 2014 Unknown [facility] Aug 30, 2015 Unknown [facility] May 26, 2014 2 WEEK F/U [facility] Sep 21, 2015 Unknown [facility] February 05, 2015 Unknown [facility] February 09, 2015 black stools,nausea [facility] Apr 27, 2014 Unknown [facility] April 05, 2015 Unknown [facility] December 21, 2014 Unknown [facility] January 05, 2015 Unknown [facility] January 07, 2015 Unknown [facility] January 15, 2015 Problems Problem Type Condition ICD-9 Code Onset Dates Condition Status Assessment Pure hypercholesterolemia E78.0 Active Problem 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 Problem Symptomatic menopausal or female climacteric states N95.1 Active Problem Benign essential hypertension I10 Active Problem Peripheral neuropathic pain G62.9 Active Problem Pure hypercholesterolemia E78.0 Active Problem History of colonic polyps Z86.010 Active Problem Depressive disorder, 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 Active Problem Coronary atherosclerosis I25.10 Active Problem Generalized osteoarthrosis, 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 Active Assessment Symptomatic menopausal or female climacteric states N95.1 Active Assessment 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 Assessment Urinary tract infection, site unspecified N39.0 Active Assessment Generalized osteoarthrosis, 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 Active Assessment Coronary atherosclerosis I25.10 Active Assessment Depressive disorder, 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 Active Assessment Peripheral neuropathic pain G62.9 Active Assessment History of colonic polyps Z86.010 Active Assessment Benign essential hypertension I10 Active Medications Medication Code System Code Instructions Start Date End Date Status Dosage Nitrofurantoin [facility] [address]-57 50 mg Orally Once a day Aug 09, 2015 February 05, 2016 Active as directed Cipro [facility] [address]-98 250 MG Orally every 12 hrs Active 2 tablets Nitrostat [facility] [address]-82 0.4 MG Sublingual as needed (prn) December 15, 2014 Active as directed Omeprazole [facility] [address]-46 20 mg Orally Once a day Active 1 capsule losartan-hydrochlorothiazide 50 mg-12.5 mg Tab Unknown 0 50-12.5 mg mg by ORAL route every day (qd) Jul 17, 2011 April 20, 2016 Active take Zoloft [facility] [address]-31 EQ 50MG BASE BID BID May 27, 2009 Active TABLET; ORAL Neurontin [facility] [address]-69 600MG by mouth twice a day (bid) December 11, 2008 Active 1 tablet Zocor 20 mg Tab Unknown 0 20 mg mg by mouth once every night April 19, 2011 May 08, 2016 Active 1 tablet folic acid 1 mg tablet Unknown 0 1 mg mg by mouth every day (qd) April 03, 2012 March 30, 2016 Active 1 tablet isosorbide mononitrate ER 30 mg Tab Unknown 0 30 mg mg by mouth every day (qd) Jul 17, 2011 Active 1 tablet Premarin [facility] [address]-28 0.625 MG/GM Vaginal every day (qd) May 11, 2014 Active as directed Cyclobenzaprine HCl [facility] [address]-91 10 mg Orally Three times a day March 30, 2016 Active 1 tablet Levothyroxine Sodium [facility] [address]-19 50 MCG Orally Once a day Active 1 tablet Metoprolol Succinate ER [facility] 87610352563 25 Active TAKE 1 TABLET BY MOUTH EVERY DAY AZO Cranberry [facility] 23[address]33 250-30 MG Orally Active Unknown Oxybutynin Chloride [facility] [address]-14 5 MG Orally daily Aug 30, 2015 March 19, 2016 Active 1 tablet Social History Social History Element Qualifiers Date Reported Tobacco Use: . Are you a: never smoker Sep 21, 2015 Use of recreational / street drugs? . Answer: No Sep 21, 2015 Do you drink alcohol? . 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
--- OUTSIDE RECORDS SUMMARY | 2019-05-23 06:49 | XMS REPORT ---
Author Author Alexey Cruz Organization [employer] Address Unknown Phone Unavailable Care Team Providers Care High Pressure Cleaner Name Role Phone Alexey Cruz Unavailable Allergies, [...] 2014 Unknown [facility] Nov 15, 2015 2 WEEK F/U [facility] Sep 21, 2015 Unknown [facility] 2015 Unknown [facility] February 05, 2015 Unknown [facility] February 09, 2015 black stools,nausea [facility] Apr 27, 2014 Unknown [facility] April 05, 2015 Unknown [facility] December 21, 2014 Unknown [facility] January 05, 2015 Unknown [facility] January 07, 2015 Unknown [facility] January 15, 2015 Problems Problem Type Condition ICD-9 Code Onset Dates Condition Status Assessment UTI (urinary tract infection) N39.0 Active Problem Other specified acquired hypothyroidism [...] Assessment Benign essential hypertension I10 Active Assessment Stress incontinence N39.3 Active Assessment Pure hypercholesterolemia E78.0 Active Medications Medication Code System Code Instructions Start Date End Date Status Dosage isosorbide mononitrate ER 30 mg Tab Unknown 0 30 mg mg by mouth every day (qd) Jul 17, 2011 Active 1 tablet Nitrofurantoin [facility] [address]-91 50 mg Orally Once a day Aug 09, 2015 February 05, 2016 Active as directed Oxybutynin Chloride [facility] [address]-84 5 MG Orally Once a day 2015 May 08, 2016 Active as directed Zocor 20 mg Tab Unknown 0 20 mg mg by mouth once every night April 19, 2011 May 08, 2016 Active 1 tablet folic acid 1 mg tablet Unknown 0 1 mg mg by mouth every day (qd) April 03, 2012 March 30, 2016 Active 1 tablet Premarin [facility] [address]-63 0.625 MG/GM Vaginal every day (qd) May 11, 2014 Active as directed Zoloft [facility] [address]-87 EQ 50MG BASE BID BID May 27, 2009 Active TABLET; ORAL Levothyroxine Sodium [facility] [address]-67 50 MCG Orally Once a day Active 1 tablet Neurontin [facility] [address]-25 600MG by mouth twice a day (bid) December 11, 2008 Active 1 tablet Cyclobenzaprine HCl [facility] [address]-77 10 mg Orally Three times a day March 30, 2016 Active 1 tablet Nitrostat [facility] [address]-63 0.4 MG Sublingual as needed (prn) December 15, 2014 Active as directed Metoprolol Succinate ER [facility] 04911249643 25 Active TAKE 1 TABLET BY MOUTH EVERY DAY Omeprazole [facility] [address]-23 20 mg Orally Once a day Active 1 capsule losartan-hydrochlorothiazide 50 mg-12.5 mg Tab Unknown 0 50-12.5 mg mg by ORAL route every day (qd) Jul 17, 2011 April 20, 2016 Active take Social History Social History Element Qualifiers Date Reported Tobacco Use: . Are you a: never smoker 2015 Use of recreational / street drugs? . Answer: No 2015 Do you exercise? . Answer: No 2015 Do you drink alcohol? . Status: No 2015 Travel outside [place]: . 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
--- OUTSIDE RECORDS SUMMARY | 2019-05-23 06:49 | XMS REPORT ---
Author Author Alexey Cruz [facility] eClinicalWorks Address Unknown Phone Unavailable Care Team Providers Care Scuba Instructor Name Role Phone Alexey Cruz Unavailable Encounters Encounter Location Date Unknown [facility] Jun 15, 2014 Unknown [facility] May 10, 2015 Unknown [facility] May 05, 2015 Unknown [facility] Apr 26, 2015 Unknown [facility] Jul 12, 2015 Unknown [facility] Oct 12, 2014 Unknown [facility] Jul 15, 2015 Unknown [facility] November 23, 2014 Unknown [facility] May 14, 2015 Unknown [facility] Oct 06, 2014 Unknown [facility] Jul 06, 2015 Unknown [facility] Oct 12, 2014 Unknown [facility] Aug 09, 2015 Unknown [facility] Jul 08, 2014 Unknown [facility] Aug 07, 2014 Unknown [facility] Jul 15, 2015 Other [facility] Jul 21, 2014 Unknown [facility] Jul 30, 2015 Unknown [facility] Jul 20, 2014 Unknown [facility] December 09, 2014 Unknown [facility] May 20, 2014 Unknown [facility] May 20, 2014 Unknown [facility] May 26, 2014 Unknown [facility] May 26, 2014 Unknown [facility] May 04, 2014 ECHO [facility] May 05, 2014 CAROTID DOPPLER [facility] May 12, 2014 Unknown [facility] December 21, 2014 Unknown [facility] December 15, 2014 AAA SCREEEN [facility] May 26, 2014 Unknown [facility] Aug 30, 2015 Unknown [facility] May 26, 2014 Unknown [facility] February 05, 2015 Unknown [facility] February 09, 2015 black stools,nausea [facility] Apr 27, 2014 Unknown [facility] April 05, 2015 Unknown [facility] December 21, 2014 Unknown [facility] January 05, 2015 Unknown [facility] January 07, 2015 Unknown [facility] January 15, 2015 Problems Problem [...] Start Date End Date Status Dosage Nitrofurantoin MEDISPAN [address]-46 50 mg Orally Once a day Aug 09, 2015 February 05, 2016 Active as directed Oxybutynin Chloride MEDISPAN [address]-51 5 MG Orally daily Aug 30, 2015 Sep 29, 2015 Active 1 tablet Social History Social History Element Qualifiers Date Reported Tobacco Use: . Are you a: never smoker Aug 26, 2015 Use of recreational / street drugs? . Answer: No Aug 26, 2015 Do you drink alcohol? . 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
--- OUTSIDE RECORDS SUMMARY | 2019-05-23 06:49 | XMS REPORT ---
Author Author Alexey Cruz [facility] eClinicalWorks Address Unknown Phone Unavailable Care Team Providers Care Linen Clerk Name Role Phone Alexey Cruz Unavailable Encounters Encounter Location Date Unknown [facility] Jun 15, 2014 Unknown [facility] May 10, 2015 Unknown [facility] May 05, 2015 Unknown [facility] Apr 26, 2015 Unknown [facility] Jul 12, 2015 Unknown [facility] Oct 12, 2014 Unknown [facility] Jul 15, 2015 Unknown [facility] November 23, 2014 Unknown [facility] May 14, 2015 Unknown [facility] Oct 06, 2014 Unknown [facility] Jul 06, 2015 Unknown [facility] Oct 12, 2014 Unknown [facility] Aug 09, 2015 Unknown [facility] Jul 08, 2014 Unknown [facility] Aug 07, 2014 Unknown [facility] Jul 15, 2015 Other [facility] Jul 21, 2014 Unknown [facility] Jul 30, 2015 Unknown [facility] Jul 20, 2014 Unknown [facility] December 09, 2014 Unknown [facility] May 20, 2014 Unknown [facility] May 20, 2014 Unknown [facility] May 26, 2014 Unknown [facility] May 26, 2014 Unknown [facility] May 04, 2014 ECHO [facility] May 05, 2014 CAROTID DOPPLER [facility] May 12, 2014 Unknown [facility] December 21, 2014 Unknown [facility] December 15, 2014 Unknown [facility] Aug 26, 2015 AAA SCREEEN [facility] May 26, 2014 Unknown [facility] Aug 30, 2015 Unknown [facility] May 26, 2014 Unknown [facility] Nov 15, 2015 2 WEEK F/U [facility] Sep 21, 2015 Unknown [facility] February 05, 2015 Unknown [facility] February 09, 2015 black stools,nausea [facility] Apr 27, 2014 Unknown [facility] April 05, 2015 Unknown [facility] December 21, 2014 Unknown [facility] January 05, 2015 Unknown [facility] January 07, 2015 Unknown [facility] January 15, 2015 [...] Start Date End Date Status [facility] [address]-33 50 mg Orally Once a day Aug 09, 2015 February 05, 2016 Inactive as directed Cipro MEDISPAN [address]-86 500 mg Orally Twice a day Nov 15, 2015 November 29, 2015 Active 1 tablet Social History Social History Element Qualifiers Date Reported Tobacco Use: . Are you a: never smoker 2015 Use of recreational / street drugs? . Answer: No 2015 Do you exercise? . Answer: No 2015 Do you drink alcohol? . Status: No 2015 Travel outside [place]: . no 2015 Occupation: . [employer] 2015 Summary Purpose eClinicalWorks Submission
--- OUTSIDE RECORDS SUMMARY | 2019-05-23 06:49 | XMS REPORT ---
Author Author Alexey Cruz [facility] eClinicalWorks Address Unknown Phone Unavailable Care Team Providers Care Telemarketer Name Role Phone Alexey Cruz Unavailable Encounters Encounter Location Date Unknown [facility] Jun 15, 2014 Unknown [facility] Oct 12, 2014 Unknown [facility] November 23, 2014 Unknown [facility] Oct 06, 2014 Unknown [facility] Oct 12, 2014 Unknown [facility] Jul 08, 2014 Unknown [facility] Aug 07, 2014 Other [facility] Jul 21, 2014 Unknown [facility] Jul 20, 2014 Unknown [facility] December 09, 2014 Unknown [facility] May 20, 2014 Unknown [facility] May 20, 2014 Unknown [facility] May 26, 2014 Unknown [facility] May 26, 2014 Unknown [facility] May 04, 2014 ECHO [facility] May 05, 2014 CAROTID DOPPLER [facility] May 12, 2014 Unknown [facility] December 21, 2014 Unknown [facility] December 15, 2014 AAA SCREEEN [facility] May 26, 2014 Unknown [facility] May 26, 2014 Unknown [facility] February 05, 2015 Unknown [facility] February 09, 2015 Unknown [facility] December 21, 2014 Unknown [facility] January 05, 2015 Unknown [facility] January 07, 2015 Unknown [facility] January 15, 2015 Problems [...] (Coronary atherosclerosis of unspecified type of vessel, [place] or graft) 414.00 Active Problem Generalized osteoarthrosis, [...] 2011 Aug 02, 2015 Active 1 tablet Cyclobenzaprine HCl [facility] [address]-29 10 MG Orally Three times a day Active 1 tablet Social History Social History Element Qualifiers Date Reported Tobacco Use: . Are you a: never smoker December 09, 2014 Use of recreational / street drugs? . Answer: No December 09, 2014 Do you drink alcohol? . Status: No December 09, 2014 Summary Purpose eClinicalWorks Submission
--- OUTSIDE RECORDS SUMMARY | 2019-05-23 06:49 | XMS REPORT ---
Author Author Alexey Cruz [facility] eClinicalWorks Address Unknown Phone Unavailable Care Team Providers Care Paper Handler Name Role Phone Alexey Cruz Unavailable Encounters Encounter Location Date Unknown [facility] Jun [facility], 2014 [facility] Oct 06, 2014 Unknown [facility] Jul 06, 2015 Unknown [facility] Oct 12, 2014 Unknown [facility] Aug 09, 2015 Unknown [facility] Jul 08, 2014 Unknown [facility] Aug 07, 2014 Unknown [facility] Jul 15, 2015 Other [facility] Jul 21, 2014 Unknown [facility] Jul 30, 2015 Unknown [facility] Jul 20, 2014 Unknown [facility] December 09, 2014 Unknown [facility] May 20, 2014 Unknown [facility] May 20, 2014 Unknown [facility] May 26, 2014 Unknown [facility] May 26, 2014 Unknown [facility] May 04, 2014 ECHO [facility] May 05, 2014 CAROTID DOPPLER [facility] May 12, 2014 Unknown [facility] December 21, 2014 Unknown [facility] December 15, 2014 Unknown [facility] Aug 26, 2015 AAA SCREEEN [facility] May 26, 2014 Unknown [facility] Aug 30, 2015 Unknown [facility] May 26, 2014 Unknown [facility] Nov 15, 2015 2 WEEK F/U [facility] Sep 21, 2015 Unknown [facility] 2015 Unknown [facility] February 05, 2015 Unknown [facility] Nov 19, 2015 Unknown [facility] February 09, 2015 black stools,nausea [facility] Apr 27, 2014 Unknown [facility] April 05, 2015 Unknown [facility] December 21, 2014 Unknown [facility] January 05, 2015 Unknown [facility] January 07, 2015 Unknown [facility] January 15, 2015 Problems Problem Type Condition ICD-9 Code Onset Dates Condition Status Problem 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 Are you a: never smoker 2015 Use of recreational / street drugs? . Answer: No 2015 Do you exercise? . Answer: No 2015 Do you drink alcohol? . Status: No 2015 Travel outside [place]: . 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
--- OUTSIDE RECORDS SUMMARY | 2019-05-23 06:49 | XMS REPORT ---
Author Author Alexey Cruz [facility] eClinicalWorks Address Unknown Phone Unavailable Care Team Providers Care Textile Designs Sales Representative Name Role Phone Alexey Cruz Unavailable Encounters Encounter Location Date Unknown [facility] Jun 15, [address] [facility] May 10, [address] [facility] May 05, [address] [facility] Apr 26, [address] [facility] Oct 12, [address] [facility] November 23, [address] [facility] May 14, [address] [facility] Oct 06[facility] [address] [facility] Oct 12, [address] [facility] Jul 08, [address] [facility] Aug 07, [address] [facility] Jul 21, [address] [facility] Jul 20, [address] [facility] December 09, [address] [facility] May 20, [address] [facility] May 20, [address] [facility] May 26, [address] [facility] May 26, [address] [facility] May 04, [address] [facility] May 05, [address] [facility] May 12, [address] [facility] December 21, [address] [facility] December 15, [address] [facility] May 26[facility] [address] [facility] May 26, [address] [facility] February 05, [address] [facility] February 09, 2015 black stools,[address]ausea [facility] Apr 27, [address] [facility] April 05, [address] [facility] December 21, [address] [facility] January 05, [address] [facility] January 07, [address] [facility] January 15, 2015 [...] (Coronary atherosclerosis of unspecified type of vessel, [place] or graft) 414.00 Active Problem Generalized osteoarthrosis, [...] 2011 May 08, 2016 Active 1 tablet Social History Social History Element Qualifiers Date Reported Tobacco Use: . Are you a: never smoker April 05, 2015 Use of recreational / street drugs? . Answer: No April 05, 2015 Do you drink alcohol? . Status: No April 05, 2015 Summary Purpose eClinicalWorks Submission
--- OUTSIDE RECORDS SUMMARY | 2019-05-23 06:49 | XMS REPORT ---
Author Author Alexey Cruz [facility] eClinicalWorks Address Unknown Phone Unavailable Care Team Providers Care Pile Driving Supervisor Name Role Phone Alexey Cruz Unavailable Encounters Encounter Location Date Unknown [facility] May 20, 2014 Unknown [facility] May 20, 2014 Unknown [facility] May 26, 2014 Unknown [facility] May 26, 2014 Unknown [facility] May 04, 2014 ECHO [facility] May 05, 2014 CAROTID DOPPLER [facility] May 12, 2014 Unknown [facility] Jun 15, 2014 Unknown [facility] December 21, 2014 Unknown [facility] December 15, 2014 AAA SCREEEN [facility] May 26, 2014 Unknown [facility] May 26, 2014 Unknown [facility] Oct 12, 2014 Unknown [facility] November 23, 2014 Unknown [facility] Oct 06, 2014 Unknown [facility] Oct 12, 2014 Unknown [facility] December 21, 2014 Unknown [facility] Jul 08, 2014 Unknown [facility] Aug 07, 2014 Other [facility] Jul 21, 2014 Unknown [facility] Jul 20, 2014 Unknown [facility] December 09, 2014 Problems Problem Type Condition [...] (Coronary atherosclerosis of unspecified type of vessel, [place] or graft) 414.00 Active Problem Generalized osteoarthrosis, [...]
--- OUTSIDE RECORDS SUMMARY | 2019-05-23 06:49 | XMS REPORT ---
Author Author Alexey Cruz [facility] eClinicalWorks Address Unknown Phone Unavailable Care Team Providers Care Staff Radiologist Name Role Phone Alexey Cruz Unavailable Encounters Encounter Location Date Unknown [facility] Jun 15, 2014 Unknown [facility] May 10, 2015 Unknown [facility] May 05, 2015 Unknown [facility] Apr 26, 2015 Unknown [facility] Jul 12, 2015 Unknown [facility] Oct 12, 2014 Unknown [facility] Jul 15, 2015 Unknown [facility] November 23, 2014 Unknown [facility] May 14, 2015 Unknown [facility] Oct 06, 2014 Unknown [facility] Jul 06, 2015 Unknown [facility] Oct 12, 2014 Unknown [facility] Jul 08, 2014 Unknown [facility] Aug 07, 2014 Unknown [facility] Jul 15, 2015 Other [facility] Jul 21, 2014 Unknown [facility] Jul 30, 2015 Unknown [facility] Jul 20, 2014 Unknown [facility] December 09, 2014 Unknown [facility] May 20, 2014 Unknown [facility] May 20, 2014 Unknown [facility] May 26, 2014 Unknown [facility] May 26, 2014 Unknown [facility] May 04, 2014 ECHO [facility] May 05, 2014 CAROTID DOPPLER [facility] May 12, 2014 Unknown [facility] December 21, 2014 Unknown [facility] December 15, 2014 AAA SCREEEN [facility] May 26, 2014 Unknown [facility] May 26, 2014 Unknown [facility] February 05, 2015 Unknown [facility] February 09, 2015 black stools,nausea [facility] Apr 27, 2014 Unknown [facility] April 05, 2015 Unknown [facility] December 21, 2014 Unknown [facility] January 05, 2015 Unknown [facility] January 07, 2015 Unknown [facility] January 15, 2015 Problems Problem [...] Instructions Start Date End Date Status Dosage Ceftin MEDISPAN [address]-18 500 mg Orally Twice a day Jul 15, 2015 Aug 06, 2015 Active 1 tablet Social History Social History Element Qualifiers Date Reported Tobacco Use: . Are you a: never smoker Jul 07, 2015 Use of recreational / street drugs? . Answer: No Jul 07, 2015 Do you drink alcohol? . Status: No Jul 07, 2015 Summary Purpose eClinicalWorks Submission
--- OUTSIDE RECORDS SUMMARY | 2019-05-23 06:50 | XMS REPORT ---
Author Author Alexey Cruz [facility] eClinicalWorks Address Unknown Phone Unavailable Care Team Providers Care Licensed Optical Dispenser Name Role Phone Alexey Cruz Unavailable Encounters Encounter Location Date Unknown [facility] Jun 15, 2014 Unknown [facility] Jun 29, 2016 Unknown [facility] Oct 12, 2014 Unknown [facility] November 23, 2014 Unknown [facility] Oct 06, 2014 Unknown [facility] Oct 12, 2014 Unknown [facility] Jul 08, 2014 Unknown [facility] Aug 07, 2014 Other [facility] Jul 21, 2014 HOSPITAL FOLLOW UP [facility] Jun 19, 2016 Unknown [facility] Jul 20, 2014 Unknown [facility] December 09, 2014 Unknown [facility] May 20, 2014 Unknown [facility] May 20, 2014 Unknown [facility] May 26, 2014 Unknown [facility] May 26, 2014 Unknown [facility] May 04, 2014 ECHO [facility] May 05, 2014 CAROTID DOPPLER [facility] May 12, 2014 Unknown [facility] December 21, 2014 Unknown [facility] December 15, 2014 AAA SCREEEN [facility] May 26, 2014 Unknown [facility] May 26, 2014 Unknown [facility] February 05, 2015 Unknown [facility] February 09, 2015 black stools,nausea [facility] Apr 27, 2014 Unknown [facility] April 05, 2015 Unknown [facility] December 21, 2014 Unknown [facility] January 05, 2015 Unknown [facility] January 07, 2015 Unknown [facility] January 15, 2015 Unknown [facility] May 10, 2015 Unknown [facility] May 05, 2015 Unknown [facility] Apr 26, 2015 Unknown [facility] Jul 12, 2015 Unknown [facility] Jul 15, 2015 Unknown [facility] May 14, 2015 Unknown [facility] Jul 06, 2015 Unknown [facility] Aug 09, 2015 Unknown [facility] Jul 15, 2015 Unknown [facility] Jul 30, 2015 Unknown [facility] Aug 26, 2015 Unknown [facility] Aug 30, 2015 Unknown [facility] Nov 15, 2015 2 WEEK F/U [facility] Sep 21, 2015 Unknown [facility] 2015 Unknown [facility] Nov 19, 2015 Unknown [facility] December 06, 2015 2 week f/u - UTI [facility] November 30, 2015 Unknown [facility] May 17, 2016 hospital f/u [facility] Jun 01, 2016 Problems Problem Type Condition ICD-9 Code Onset Dates Condition Status Problem 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 Problem History of colonic polyps Z86.010 Active Problem Depressive disorder, 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 Active Problem Polymyalgia rheumatica M35.3 Active Problem Pure hypercholesterolemia E78.0 Active Problem Acute gastric ulcer K25.3 Active Problem Coronary atherosclerosis I25.10 Active Problem Generalized osteoarthrosis, 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 Active Problem Benign essential hypertension I10 Active Problem Peripheral neuropathic pain G62.9 Active Assessment UTI (urinary tract infection) N39.0 Active Assessment Osteoarthritis, generalized M15.9 Active Problem Symptomatic menopausal or female climacteric states N95.1 Active Medications Medication Code System Code Instructions Start Date End Date Status Dosage PredniSONE MEDISPAN [address]-06 10 mg Orally Once a day Jun 01, 2016 Aug 28, 2016 Active 1 tablet Trimethoprim MEDISPAN [address]-27 100 mg Orally Once a day May 17, 2016 Jul 17, 2016 Active 1 tablet Social History Social History Element Qualifiers Date Reported Do you take Aspirin, or a blood thinner . Yes I do take aspirin/ or a blood thinner Jun 19, 2016 Tobacco Use: . Are you a: never smoker Jun 19, 2016 Use of recreational / street drugs? . Answer: No Jun 19, 2016 Marital Status: . Jun 19, 2016 Caffeine intake? . Status: Yes, What type: Coffee, Tea Jun 19, 2016 Do you exercise? . Answer: No Jun 19, 2016 Do you drink alcohol? . Status: No Jun 19, 2016 Travel outside [place]: . 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
--- OUTSIDE RECORDS SUMMARY | 2019-05-23 06:50 | XMS REPORT ---
Author Author Alexey Cruz Organization eClinicalWorks Address Unknown Phone Unavailable Care Team Providers Care Re Recording Mixer Name Role Phone Alexey Cruz Unavailable Allergies, Adverse Reactions, Alerts Substance Reaction Event Type Sulfa Info Not Available Drug Allergy Encounters Encounter Location Date Unknown [facility] Jun 15, 2014 Unknown [facility] Oct 12, 2014 Unknown [facility] November 23, 2014 Unknown [facility] Oct 06, 2014 Unknown [facility] Oct 12, 2014 Unknown [facility] Jul 08, 2014 Unknown [facility] Aug 07, 2014 Other [facility] Jul 21, 2014 Unknown [facility] Jul 20, 2014 Unknown [facility] December 09, 2014 Unknown [facility] May 20, 2014 Unknown [facility] May 20, 2014 Unknown [facility] May 26, 2014 Unknown [facility] May 26, 2014 Unknown [facility] May 04, 2014 ECHO [facility] May 05, 2014 CAROTID DOPPLER [facility] May 12, 2014 Unknown [facility] December 21, 2014 Unknown [facility] December 15, 2014 AAA SCREEEN [facility] May 26, 2014 Unknown [facility] May 26, 2014 Unknown [...] 06, 2015 2 week f/u - UTI [facility] November 30, 2015 Unknown [facility] May 17, 2016 hospital f/u [facility] Jun 01, 2016 Problems Problem Type Condition ICD-9 Code Onset Dates Condition Status Problem Symptomatic menopausal or female climacteric states N95.1 Active Problem Depressive disorder, 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 Active Problem 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 Problem Pure hypercholesterolemia E78.0 Active Problem Benign essential hypertension I10 Active Problem Polymyalgia rheumatica M35.3 Active Problem Generalized osteoarthrosis, 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 Active Problem History of colonic polyps Z86.010 Active Problem Peripheral neuropathic pain G62.9 Active Problem Coronary atherosclerosis I25.10 Active Assessment Coronary atherosclerosis I25.10 Active Assessment Benign essential hypertension I10 Active Assessment Pure hypercholesterolemia E78.0 Active Assessment Polymyalgia rheumatica M35.3 Active Assessment UTI (urinary tract infection) N39.0 Active Medications Medication Code System Code Instructions Start Date End Date Status Dosage Metoprolol Succinate ER [facility] 36252696952 25 Active TAKE 1 TABLET BY MOUTH EVERY DAY Losartan Potassium-HCTZ [facility] 40662779122 0 Active TAKE 1 TABLET BY MOUTH EVERY DAY Sucralfate [facility] [address]-33 1 GM Orally Twice a day Active 1 tablet on an empty stomach Levothyroxine Sodium [facility] [address]-05 25 MCG Orally Once a day Jun 01, 2016 Active 1 tablet Gabapentin Unknown 0 600 by mouth twice a day (bid) Active TAKE 1 TABLET BY MOUTH TWICE DAILY Trimethoprim [facility] [address]-13 100 mg Orally Once a day May 17, 2016 Jul 17, 2016 Active 1 tablet isosorbide mononitrate ER 30 mg Tab Unknown 0 30 mg mg by mouth every day (qd) Jul 17, 2011 Active 1 tablet Nitrostat [facility] [address]-39 0.4 MG Sublingual as needed (prn) December 15, 2014 Active as directed PredniSONE [facility] [address]-69 10 mg Orally Once a day Jun 01, 2016 Jul 01, 2016 Active 1 tablet Simvastatin [facility] 15600265410 20 Active TAKE 1 TABLET BY MOUTH ONCE DAILY AT NIGHT Zoloft [facility] [id number] EQ 50MG BASE BID BID Active TABLET; ORAL Social History Social History Element Qualifiers Date Reported Do you take Aspirin, or a blood thinner . Yes I do take aspirin/ or a blood thinner Jun 01, 2016 Tobacco Use: . Are you a: never smoker Jun 01, 2016 Use of recreational / street drugs? . Answer: No Jun 01, 2016 Marital Status: . Jun 01, 2016 Caffeine intake? . Status: Yes, What type: Coffee, Tea Jun 01, 2016 Do you exercise? . Answer: No Jun 01, 2016 Do you drink alcohol? . Status: No Jun 01, 2016 Travel outside [place]: . 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 Jun 01, 2016 Vital Signs Date/Time: Jun 01, 2016 Weight 125.8 lbs Height 59.6 in Temperature 98.1 F Cardiac Monitoring Heart Rate 66 /min Blood Pressure Diastolic 40 mm Hg Blood Pressure Systolic 137 mm Hg Results ESR (Sedimentation Rate) Sed Rate(-0-20 MM/HR) 16 CBC w/ Auto Diff and Platelet MCV(-80.0-98.0 fl) 93.5 Hct(-36.0-48.0 %) 31.3 MCHC(-32.0-36.0 g/dL) 33.2 MCH(-27.0-31.0 pg) 31.1 WBC(-3.7-10.4 K/CMM) 8.7 Hgb(-12.0-16.0 g/dL) 10.4 RBC(-4.20-5.40 M/CMM) 3.35 MPV(-7.4-10.4 fl) 7.9 RDW(-11.5-14.5 %) 13.6 Platelet(-133-450 K/CMM) 323 CRP (C-Reactive Protein, High Sensitivity) CRP, High Sensitivity(- mg/L) 6.8 CMP (Comprehensive Metabolic Panel) Creatinine Lvl(-0.50-1.40 mg/dL) 1.20 Glucose Lvl(-70-99 mg/dL) 110 B/C Ratio(-6-25 ) 25 BUN(-7-22 mg/dL) 30 Albumin Lvl(-3.5-5.0 g/dL) 3.4 Globulin(-2.7-4.2 g/dL) 3.6 Total Protein(-6.4-8.4 g/dL) 7.0 ALT(-0-65 U/L) 39 CO2(-24-32 mEq/L) 28 AST(-0-37 U/L) 43 AGAP(-10.0-20.0 mEq/L) 13.7 Potassium Lvl(-3.5-5.1 mEq/L) 4.7 A/G Ratio(-0.7-1.6 ) 0.9 Calcium Lvl(-8.5-10.5 mg/dL) 8.9 Chloride Lvl(-95-109 mEq/L) 100 Sodium Lvl(-135-145 mEq/L) 137 Alk Phos(-39-136 U/L) 62 eGFR(- mL/min/1.73m2) 41 Summary Purpose eClinicalWorks Submission
--- OUTSIDE RECORDS SUMMARY | 2019-05-23 06:50 | XMS REPORT ---
Author Author Alexey Cruz [facility] eClinicalWorks Address Unknown Phone Unavailable Care Team Providers Care Installer Apprentice Name Role Phone Alexey Cruz Unavailable Encounters Encounter Location Date Unknown [facility] Jun 15, 2014 Unknown [facility] Oct 04, 2016 Unknown [facility] Jun 29, 2016 Unknown [facility] Oct 12, 2014 1 month f/u [facility] Jul 19, 2016 Unknown [facility] November 23, 2014 4 month f/u [facility] Oct 02, 2016 Unknown [facility] Oct 06, 2014 Unknown [facility] Oct 04, 2016 Unknown [facility] Oct 12, 2014 Unknown [facility] Jul 08, 2014 Unknown [facility] Aug 07, 2014 Other [facility] Jul 21, 2014 HOSPITAL FOLLOW UP [facility] Jun 19, 2016 [...] [facility] May 05, 2014 CAROTID DOPPLER [facility] May 12, 2014 [facility] Nov 15, 2015 2 WEEK F/U [facility] Sep 21, 2015 Unknown [facility] 2015 Unknown [facility] Nov 19, 2015 Unknown [facility] December 06, 2015 2 week f/u - UTI [facility] November 30, 2015 Unknown [facility] May 17, 2016 hospital f/u [facility] Jun 01, 2016 Problems Problem Type Condition ICD-9 Code Onset Dates Condition Status Assessment 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 Assessment Encounter for examination of eyes and vision without abnormal findings Z01.00 Active Assessment Abdominal bruit R09.89 Active Problem Coronary atherosclerosis I25.10 Active Assessment Anxiety F41.9 Active Problem Peripheral neuropathic pain G62.9 Active Assessment 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 Problem Benign essential hypertension I10 Active Problem Bilateral carotid bruits R09.89 Active Problem Polymyalgia rheumatica M35.3 Active Problem Anxiety F41.9 Active Problem Pure hypercholesterolemia E78.0 Active Assessment History of colonic polyps Z86.010 Active Assessment Symptomatic menopausal or female climacteric states N95.1 Active Problem 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 Assessment Polymyalgia rheumatica M35.3 Active Problem Acute gastric ulcer K25.3 Active Problem Chronic anxiety F41.9 Active Problem Polyneuropathy G62.9 Active Problem Other and unspecified hyperlipidemia E78.5 Active Assessment Benign essential hypertension I10 Active Problem Symptomatic menopausal or female climacteric states N95.1 Active Assessment Pure hypercholesterolemia E78.0 Active Assessment Coronary atherosclerosis I25.10 Active Problem History of colonic polyps Z86.010 Active Problem Generalized osteoarthrosis, 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 Yes I do take aspirin/ or a blood thinner Oct 02, 2016 Tobacco Use: . Are you a: never smoker Oct 02, 2016 Use of recreational / street drugs? . Answer: No Oct 02, 2016 Marital Status: . Oct 02, 2016 Caffeine intake? . Status: Yes, What type: Coffee, Tea Oct 02, 2016 Do you exercise? . Answer: No Oct 02, 2016 Do you drink alcohol? . Status: No Oct 02, 2016 Travel outside [place]: . 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
--- OUTSIDE RECORDS SUMMARY | 2019-05-23 06:50 | XMS REPORT ---
Author Author Alexey Cruz [facility] eClinicalWorks Address Unknown Phone Unavailable Care Team Providers Care Parts Department Manager Name Role Phone Alexey Cruz Unavailable Encounters Encounter Location Date Unknown [facility] Jun 15, 2014 ECHO [facility] Oct 24, 2016 Unknown [facility] Oct 04, 2016 Unknown [facility] Oct 31, 2016 Unknown [facility] Jun 29, [...] Group Jul 21, 2014 HOSPITAL FOLLOW UP [facility] Jun 19, 2016 [facility] Aug 26, 2015 Unknown [facility] Aug 30, 2015 Unknown [facility] Nov 15, 2015 2 WEEK F/U [facility] Sep 21, 2015 Unknown [facility] 2015 Unknown [facility] Nov 19, 2015 Unknown [facility] December 06, 2015 2 week f/u - UTI [facility] November 30, 2015 Unknown [facility] May 17, 2016 hospital f/u [facility] Jun 01, 2016 Problems Problem Type Condition ICD-9 Code Onset Dates Condition Status Problem Bilateral carotid bruits R09.89 Active Problem Acute gastric ulcer K25.3 Active Problem Chronic anxiety F41.9 Active Problem Anxiety F41.9 Active Problem Pure hypercholesterolemia E78.0 Active Problem 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 Problem Cardiomyopathy, unspecified I42.9 Active Problem Other and unspecified hyperlipidemia E78.5 Active Problem Polyneuropathy G62.9 Active Problem Occlusion and stenosis of unspecified carotid artery I65.29 Active Problem 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 Problem Depressive disorder, 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 Active Problem Symptomatic menopausal or female climacteric states N95.1 Active Problem Coronary atherosclerosis I25.10 Active Problem Peripheral neuropathic pain G62.9 Active Problem History of colonic polyps Z86.010 Active Problem Benign essential hypertension I10 Active Problem Generalized osteoarthrosis, 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
--- OUTSIDE RECORDS SUMMARY | 2019-05-23 06:50 | XMS REPORT ---
Author Author lAexey Cruz [facility] eClinicalWorks Address Unknown Phone Unavailable Care Team Providers Care Creche Attendant Name Role Phone Alexey Cruz Unavailable Encounters [...] Group Jul 21, 2014 HOSPITAL FOLLOW UP [facility] Jun 19, 2016 Unknown [facility] Jul 20, 2014 Unknown [facility] December 09, 2014 Unknown [facility] May 20, 2014 Unknown [facility] May 20, 2014 Unknown [facility] May 26, 2014 Unknown [facility] May 26, 2014 Unknown [facility] May 04, 2014 ECHO [facility] May 05, 2014 CAROTID DOPPLER [facility] May 12, 2014 Unknown [facility] Nov 15, 2015 2 WEEK F/U [facility] Sep 21, 2015 Unknown [facility] 2015 Unknown [facility] Nov 19, 2015 Unknown [facility] December 06, 2015 2 week f/u - UTI [facility] November 30, 2015 Unknown [facility] May 17, 2016 hospital f/u [facility] Jun 01, 2016 Problems Problem Type Condition ICD-9 Code Onset Dates Condition Status Problem Benign essential hypertension I10 Active Problem Bilateral carotid bruits R09.89 Active Problem Polymyalgia rheumatica M35.3 Active Problem Anxiety F41.9 Active Problem Pure hypercholesterolemia E78.0 Active Problem 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 Problem Acute gastric ulcer K25.3 Active Problem Chronic anxiety F41.9 Active Problem Polyneuropathy G62.9 Active Problem Other and unspecified hyperlipidemia E78.5 Active Assessment Encounter for general adult medical examination with abnormal findings Z00.01 Active Problem Symptomatic menopausal or female climacteric states N95.1 Active Assessment Polyneuropathy G62.9 Active Problem History of colonic polyps Z86.010 Active Problem Generalized osteoarthrosis, 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
--- OUTSIDE RECORDS SUMMARY | 2019-05-23 06:50 | XMS REPORT ---
Author Author Alexey Cruz [facility] eClinicalWorks Address Unknown Phone Unavailable Care Team Providers Care Flame Burner Name Role Phone Alexey Cruz Unavailable Encounters Encounter Location Date Unknown [facility] Jun 15, 2014 Unknown [facility] Nov 13, 2016 ECHO [facility] Oct 24, 2016 Unknown [facility] Oct 04, 2016 CAROTID DOPPLER [facility] Oct 31, 2016 Unknown [facility] Oct 31, [...] [facility] Jul 15, [address] [facility] Jul 30, [address] [facility] Aug 26, [address] [facility] Aug 30, [address] [facility] Nov 15, 2015 2 WEEK F/U [facility] Sep 21, [address] [facility] [address] [facility] Nov 19, [address] [facility] December 06, 2015 2 week f/u - UTI [facility] November 30, 2015 Unknown [facility] May 17, 2016 hospital f/u [facility] Jun 01, 2016 Problems Problem [...] Date End Date Status Dosage Cipro MEDISPAN [address]-56 500 mg Orally Twice a day Nov 15, 2015 November 23, 2016 Active 1 tablet Social History Social [...] . 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
--- OUTSIDE RECORDS SUMMARY | 2019-05-23 06:50 | XMS REPORT ---
Author Author Alexey Cruz [facility] eClinicalWorks Address Unknown Phone Unavailable Care Team Providers Care Grain Elevator Operator Name Role Phone Alexey Cruz Unavailable Allergies, Adverse Reactions, Alerts Substance Reaction Event Type Sulfa Info Not Available Drug Allergy Encounters Encounter Location Date Unknown [facility] Jun 15, 2014 Unknown [facility] Jun 29, 2016 Unknown [facility] Oct 12, 2014 1 month f/u [facility] Jul 19, 2016 Unknown [facility] November 23, 2014 Unknown [facility] Oct 06, 2014 Unknown [facility] Oct 12, 2014 Unknown [facility] Jul 08, 2014 Unknown [facility] Aug 07, 2014 Other [facility] Jul 21, 2014 HOSPITAL FOLLOW UP [facility] Jun 19, 2016 Unknown [facility] Jul 20, 2014 Unknown [facility] December 09, 2014 Unknown [facility] May 20, 2014 Unknown [facility] May 20, 2014 Unknown [facility] May 26, 2014 Unknown [facility] May 26, 2014 Unknown [facility] May 04, 2014 ECHO [facility] May 05, 2014 CAROTID DOPPLER [facility] May 12, 2014 Unknown [facility] December 21, 2014 Unknown [facility] December 15, 2014 AAA SCREEEN [facility] May 26, 2014 Unknown [facility] May 26, 2014 [facility] Sep 21, 2015 Unknown [facility] 2015 Unknown [facility] Nov 19, 2015 Unknown [facility] December 06, 2015 2 week f/u - UTI [facility] November 30, 2015 Unknown [facility] May 17, 2016 hospital f/u [facility] Jun 01, 2016 Problems Problem Type Condition ICD-9 Code Onset Dates Condition Status Problem 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 Problem History of colonic polyps Z86.010 Active Problem Depressive disorder, 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 Active Problem Acute gastric ulcer K25.3 Active Problem Polymyalgia rheumatica M35.3 Active Problem Other and unspecified hyperlipidemia E78.5 Active Problem Coronary atherosclerosis I25.10 Active Problem Generalized osteoarthrosis, 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 Active Problem Benign essential hypertension I10 Active Problem Peripheral neuropathic pain G62.9 Active Assessment Acute gastric ulcer K25.3 Active Assessment Coronary atherosclerosis I25.10 Active Assessment Other and unspecified hyperlipidemia E78.5 Active Assessment Polymyalgia rheumatica M35.3 Active Assessment Benign essential hypertension I10 Active Problem Symptomatic menopausal or female climacteric states N95.1 Active Medications Medication Code System Code Instructions Start Date End Date Status Dosage Zoloft [facility] 13575181399 EQ 50MG BASE BID BID Active TABLET; ORAL Simvastatin [facility] 01481630791 20 Active TAKE 1 TABLET BY MOUTH ONCE DAILY AT NIGHT Nitrostat [facility] [address]-62 0.4 MG Sublingual as needed (prn) December 15, 2014 Active as directed Sucralfate [facility] [address]-31 1 GM Orally Twice a day Active 1 tablet on an empty stomach Levothyroxine Sodium [facility] [address]-49 25 MCG Orally Once a day Jun 01, 2016 Active 1 tablet Metoprolol Succinate ER [facility] 28096030745 25 Active TAKE 1 TABLET BY MOUTH EVERY DAY Losartan Potassium-HCTZ [facility] 53604352873 0 Active TAKE 1 TABLET BY MOUTH EVERY DAY Gabapentin Unknown 0 600 by mouth twice a day (bid) Active TAKE 1 TABLET BY MOUTH TWICE DAILY isosorbide mononitrate ER 30 mg Tab Unknown 0 30 mg mg by mouth every day (qd) Jul 17, 2011 Active 1 tablet Omeprazole [facility] [address]-87 40 MG Orally Once a day Jul 19, 2016 Active 1 capsule PredniSONE [facility] [address]-43 10 mg Orally Once a day Jun 01, 2016 Aug 28, 2016 Active 1 tablet Social History Social History Element Qualifiers Date Reported Do you take Aspirin, or a blood thinner . Yes I do take aspirin/ or a blood thinner Jul 19, 2016 Tobacco Use: . Are you a: never smoker Jul 19, 2016 Use of recreational / street drugs? . Answer: No Jul 19, 2016 Marital Status: . Jul 19, 2016 Caffeine intake? . Status: Yes, What type: Coffee, Tea Jul 19, 2016 Do you exercise? . Answer: No Jul 19, 2016 Do you drink alcohol? . Status: No Jul 19, 2016 Travel outside [place]: . 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
--- OUTSIDE RECORDS SUMMARY | 2019-05-23 06:50 | XMS REPORT ---
Author Author Alexey Cruz Organization e[employer] Address Unknown Phone Unavailable Care Team Providers Care Supplies Packer Name Role Phone Alexey Cruz Unavailable Allergies, Adverse Reactions, Alerts Substance Reaction Event Type Sulfa Info Not Available Drug Allergy Encounters Encounter Location Date Unknown [facility] Jun 15, 2014 Unknown [facility] May 10, 2015 Unknown [facility] May 05, 2015 Unknown [facility] Apr 26, 2015 Unknown [facility] Jul 12, 2015 Unknown [facility] Oct 12, 2014 Unknown [facility] Jul 15, 2015 Unknown [facility] November 23, 2014 Unknown [facility] May 14, 2015 Unknown [facility] Oct 06, 2014 Unknown [facility] Jul 06, 2015 Unknown [facility] Oct 12, 2014 Unknown [facility] Aug 09, 2015 Unknown [facility] Jul 08, 2014 Unknown [facility] Aug 07, 2014 Unknown [facility] Jul 15, 2015 Other [facility] Jul 21, 2014 Unknown [facility] Jul 30, 2015 Unknown [facility] Jul 20, 2014 Unknown [facility] December 09, 2014 Unknown [facility] May 20, 2014 Unknown [facility] May 20, 2014 Unknown [facility] May 26, 2014 Unknown [facility] May 26, 2014 Unknown [facility] May 04, 2014 ECHO [facility] May 05, 2014 CAROTID DOPPLER [facility] May 12, 2014 Unknown [facility] December 21, 2014 Unknown [facility] December 15, 2014 Unknown [facility] Aug 26, 2015 AAA SCREEEN [facility] May 26, 2014 Unknown [facility] Aug 30, 2015 Unknown [facility] May 26, 2014 Unknown [facility] Nov 15, 2015 2 WEEK F/U [facility] Sep 21, 2015 Unknown [facility] 2015 Unknown [facility] February 05, 2015 Unknown [facility] Nov 19, 2015 Unknown [facility] February 09, 2015 Unknown [facility] December 06, 2015 black stools,nausea [facility] Apr 27, 2014 2 week f/u - UTI [facility] November 30, 2015 Unknown [facility] April 05, 2015 Unknown [facility] May 17, 2016 Unknown [facility] December 21, 2014 Unknown [facility] January 05, 2015 Unknown [facility] January 07, 2015 Unknown [facility] January 15, 2015 Problems Problem Type Condition ICD-9 Code Onset Dates Condition Status Assessment Osteoarthritis, generalized M15.9 Active Problem Other specified acquired hypothyroidism [...] Assessment Benign essential hypertension I10 Active Assessment Recurrent UTI N39.0 Active Assessment Pure hypercholesterolemia E78.0 Active Medications Medication Code System Code Instructions Start Date End Date Status Dosage Losartan Potassium-HCTZ [facility] 14239245619 0 Active TAKE 1 TABLET BY MOUTH EVERY DAY Omeprazole [facility] [address]-71 20 mg Orally Once a day Active 1 capsule isosorbide mononitrate ER 30 mg Tab Unknown 0 30 mg mg by mouth every day (qd) Jul 17, 2011 Active 1 tablet Neurontin [facility] [address]-50 600MG by mouth twice a day (bid) December 11, 2008 Active 1 tablet Zoloft [facility] 43507747307 EQ 50MG BASE BID BID Active TABLET; ORAL Metoprolol Succinate ER [facility] 35777350310 25 Active TAKE 1 TABLET BY MOUTH EVERY DAY Simvastatin [facility] [address]-90 20 MG Orally Once a day Active 1 tablet in the evening Trimethoprim [facility] [address]-69 100 mg Orally Once a day May 17, 2016 Jul 17, 2016 Active 1 tablet Nitrostat [facility] [address]-31 0.4 MG Sublingual as needed (prn) December 15, 2014 Active as directed Gabapentin Unknown 0 600 by mouth twice a day (bid) Active TAKE 1 TABLET BY MOUTH TWICE DAILY Social History Social History Element Qualifiers Date Reported Do you take Aspirin, or a blood thinner . Yes I do take aspirin/ or a blood thinner May 17, 2016 Tobacco Use: . Are you a: never smoker May 17, 2016 Use of recreational / street drugs? . Answer: No May 17, 2016 Marital Status: . May 17, 2016 Caffeine intake? . Status: Yes, What type: Coffee, Tea May 17, 2016 Do you exercise? . Answer: No May 17, 2016 Do you drink alcohol? . Status: No May 17, 2016 Travel outside [place]: . 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
--- OUTSIDE RECORDS SUMMARY | 2019-05-23 06:50 | XMS REPORT ---
Author Author Alexey Cruz [facility] eClinicalWorks Address Unknown Phone Unavailable Care Team Providers Care Monorail Car Operator Name Role Phone Alexey Cruz Unavailable Encounters [...] [facility] Jul 30, 2015 Unknown [facility] Aug 26, 2015 Unknown [facility] Aug 30, 2015 Unknown [facility] Nov 15, 2015 2 WEEK F/U [facility] Sep 21, 2015 Unknown [facility] 2015 Unknown [facility] Nov 19, 2015 Unknown [facility] December 06, 2015 2 week f/u - UTI [facility] November 30, 2015 Unknown [facility] May 17, 2016 hospital f/u [facility] Jun 01, 2016 Problems Problem Type [...] disorder, 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 Active Assessment Occlusion and stenosis of unspecified carotid artery I65.29 Active Problem Symptomatic menopausal or female climacteric states N95.1 Active Problem Coronary atherosclerosis I25.10 Active Problem Peripheral neuropathic pain G62.9 Active Problem History of colonic polyps Z86.010 Active Problem Benign essential hypertension I10 Active Problem Generalized osteoarthrosis, 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
--- OUTSIDE RECORDS SUMMARY | 2019-05-23 06:50 | XMS REPORT ---
Author Author Alexey Cruz Organization eClinicalWorks Address Unknown Phone Unavailable Care Team Providers Care Detective Homicide Squad Name Role Phone Alexey Cruz Unavailable Allergies, Adverse Reactions, Alerts Substance Reaction Event Type Sulfa Info Not Available Drug Allergy Encounters Encounter Location Date Unknown [facility] Jun 15, 2014 Unknown [facility] Oct 12, 2014 Unknown [facility] November 23, 2014 Unknown [facility] Oct 06, 2014 Unknown [facility] Oct 12, 2014 Unknown [facility] Jul 08, 2014 Unknown [facility] Aug 07, 2014 Other [facility] Jul 21, 2014 HOSPITAL FOLLOW UP [facility] Jun 19, 2016 Unknown [facility] Jul 20, 2014 Unknown [facility] December 09, 2014 Unknown [facility] May 20, 2014 Unknown [facility] May 20, 2014 Unknown [facility] May 26, 2014 Unknown [facility] May 26, 2014 Unknown [facility] May 04, 2014 ECHO [facility] May 05, 2014 CAROTID DOPPLER [facility] May 12, 2014 Unknown [facility] December 21, 2014 Unknown [facility] December 15, 2014 AAA SCREEEN [facility] May 26, 2014 Unknown [facility] May 26, 2014 Unknown [facility] February 05, 2015 Unknown [facility] February 09, 2015 black stools,nausea [facility] Apr 27, 2014 Unknown [facility] April 05, 2015 Unknown [facility] December 21, 2014 Unknown [facility] January 05, 2015 Unknown [facility] January 07, 2015 Unknown [facility] January 15, 2015 Unknown [facility] May 10, 2015 Unknown [facility] May 05, 2015 [facility] Sep 21, 2015 Unknown [facility] 2015 Unknown [facility] Nov 19, 2015 Unknown [facility] December 06, 2015 2 week f/u - UTI [facility] November 30, 2015 Unknown [facility] May 17, 2016 hospital f/u [facility] Jun 01, 2016 Problems Problem Type [...] Assessment Acute gastric ulcer K25.3 Active Assessment Benign essential hypertension I10 Active Assessment Pure hypercholesterolemia E78.0 Active Assessment 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 Assessment Polymyalgia rheumatica M35.3 Active Assessment Peripheral neuropathic pain G62.9 Active Problem Symptomatic menopausal or female climacteric states N95.1 Active Medications Medication Code System Code Instructions Start Date End Date Status Dosage Simvastatin [facility] 68274142000 20 Active TAKE 1 TABLET BY MOUTH ONCE DAILY AT NIGHT PredniSONE [facility] [address]-77 10 mg Orally Once a day Jun 01, 2016 Jul 01, 2016 Active 1 tablet Sucralfate [facility] [address]-93 1 GM Orally Twice a day Active 1 tablet on an empty stomach isosorbide mononitrate ER 30 mg Tab Unknown 0 30 mg mg by mouth every day (qd) Jul 17, 2011 Active 1 tablet Levothyroxine Sodium [facility] [address]-04 25 MCG Orally Once a day Jun 01, 2016 Active 1 tablet Zoloft [facility] 28929564494 EQ 50MG BASE BID BID Active TABLET; ORAL Losartan Potassium-HCTZ [facility] 79163415668 0 Active TAKE 1 TABLET BY MOUTH EVERY DAY Nitrostat [facility] [address]-30 0.4 MG Sublingual as needed (prn) December 15, 2014 Active as directed Gabapentin Unknown 0 600 by mouth twice a day (bid) Active TAKE 1 TABLET BY MOUTH TWICE DAILY Metoprolol Succinate ER [facility] 33255163303 25 Active TAKE 1 TABLET BY MOUTH EVERY DAY Trimethoprim [facility] [address]-60 100 mg Orally Once a day May [...] . 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
--- OUTSIDE RECORDS SUMMARY | 2019-05-23 06:50 | XMS REPORT ---
Author Author Alexey Cruz [facility] eClinicalWorks Address Unknown Phone Unavailable Care Team Providers Care Bindery Chief Name Role Phone Alexey Cruz Unavailable Encounters Encounter Location Date Unknown [facility] Jun 15[facility] 2014 [facility] Jul [facility], 2014 HOSPITAL FOLLOW UP [facility] Jun 19, 2016 Unknown [...] [facility] Aug 30, 2015 Unknown [facility] Nov 15, 2015 2 WEEK F/U [facility] Sep 21, 2015 Unknown [facility] 2015 Unknown [facility] Nov 19, 2015 Unknown [facility] December 06, 2015 2 week f/u - UTI [facility] November 30, 2015 Unknown [facility] May 17, 2016 hospital f/u [facility] Jun 01, 2016 Problems Problem Type Condition ICD-9 Code Onset Dates Condition Status Problem Polymyalgia rheumatica M35.3 Active Problem Chronic anxiety F41.9 Active Problem Bilateral carotid bruits R09.89 Active Problem Anxiety F41.9 Active Problem Pure hypercholesterolemia E78.0 Active Problem 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 Problem Other and unspecified hyperlipidemia E78.5 Active Problem Acute gastric ulcer K25.3 Active Problem Polyneuropathy G62.9 Active Problem Cardiomyopathy, unspecified I42.9 Active Problem Symptomatic menopausal or female climacteric states N95.1 Active Problem 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
--- OUTSIDE RECORDS SUMMARY | 2019-05-23 06:50 | XMS REPORT ---
Author Author Alexey Cruz [facility] eClinicalWorks Address Unknown Phone Unavailable Care Team Providers Care Grain Elevator Man Name Role Phone Alexey Cruz Unavailable Allergies, Adverse Reactions, Alerts Substance Reaction Event Type Sulfa Info Not Available Drug Allergy Encounters Encounter Location Date Unknown [facility] Jun 15, 2014 Unknown [facility] Jun 29, 2016 Unknown [facility] Oct 12, 2014 1 month f/u [facility] Jul 19, 2016 Unknown [facility] November 23, 2014 4 month f/u [facility] Oct 02, 2016 Unknown [facility] Oct 06, 2014 Unknown [facility] Oct 12, 2014 Unknown [facility] Jul 08, 2014 Unknown [facility] Aug 07, 2014 Other [facility] Jul 21, 2014 HOSPITAL FOLLOW UP [facility] Jun 19, 2016 Unknown [facility] Jul 20, 2014 Unknown [facility] December 09, 2014 Unknown [facility] May 20, 2014 Unknown [facility] May 20, 2014 Unknown [facility] May 26, 2014 Unknown [facility] May 26, 2014 Unknown [facility] May 04, 2014 ECHO [facility] May 05, 2014 CAROTID DOPPLER [facility] May 12, 2014 Unknown [facility] December 21, 2014 Unknown [facility] December 15, 2014 AAA SCREEEN [facility] Aug 30, 2015 Unknown [facility] Nov 15, 2015 2 WEEK F/U [facility] Sep 21, 2015 Unknown [facility] 2015 Unknown [facility] Nov 19, 2015 Unknown [facility] December 06, 2015 2 week f/u - UTI [facility] November 30, 2015 Unknown [facility] May 17, 2016 hospital f/u [facility] Jun 01, 2016 Problems Problem Type Condition ICD-9 Code Onset Dates Condition Status Assessment Bilateral carotid bruits R09.89 Active Assessment Chronic anxiety F41.9 Active Assessment BMI 25.0-25.9,adult Z68.25 Active Problem 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 Assessment Other and unspecified hyperlipidemia E78.5 Active Problem Depressive disorder, 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 Active Assessment Acute gastric ulcer K25.3 Active Problem History of colonic polyps Z86.010 Active Problem Coronary atherosclerosis I25.10 Active Problem Generalized osteoarthrosis, 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 Active Problem Acute gastric ulcer K25.3 Active Problem Chronic anxiety F41.9 Active Assessment 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 Assessment Symptomatic menopausal or female climacteric states N95.1 Active Problem Other and unspecified hyperlipidemia E78.5 Active Assessment Polymyalgia rheumatica M35.3 Active Problem Benign essential hypertension I10 Active Problem Peripheral neuropathic pain G62.9 Active Problem Bilateral carotid bruits R09.89 Active Problem Polymyalgia rheumatica M35.3 Active Assessment Generalized osteoarthrosis, 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 Active Assessment Coronary atherosclerosis I25.10 Active Assessment Depressive disorder, 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 Active Assessment History of colonic polyps Z86.010 Active Assessment Encounter for general adult medical examination with abnormal findings Z00.01 Active Problem Symptomatic menopausal or female climacteric states N95.1 Active Assessment Peripheral neuropathic pain G62.9 Active Assessment Benign essential hypertension I10 Active Medications Medication Code System Code Instructions Start Date End Date Status Dosage PredniSONE [facility] [address]-37 10 MG Orally Once a day Active 1 tablet Nitrostat [facility] [address]-24 0.4 MG Sublingual as needed (prn) December 15, 2014 Active as directed Omeprazole [facility] [address]-72 40 MG Orally Once a day Jul 19, 2016 Active 1 capsule Zoloft [facility] 91142361030 EQ 50MG BASE BID BID Active TABLET; ORAL Trimethoprim [facility] [address]-18 100 MG Orally Once a day Active 1 tablet isosorbide mononitrate ER 30 mg Tab Unknown 0 30 mg mg by mouth every day (qd) Jul 17, 2011 Active 1 tablet Levothyroxine Sodium [facility] [address]-27 25 MCG Orally Once a day Jun 01, 2016 Active 1 tablet Omeprazole [facility] 08477840021 40 MG Orally Once a day Active 1 capsule Metoprolol Succinate ER [facility] 07366001842 25 Active TAKE 1 TABLET BY MOUTH EVERY DAY Losartan Potassium-HCTZ [facility] [address]-94 50-12.5 MG Orally Once a day Active 1 tablet Sucralfate [facility] [address]-32 1 GM Orally Twice a day Active 1 tablet on an empty stomach Simvastatin [facility] [address]-64 20 MG Orally Once a day Active 1 tablet in the evening Gabapentin [facility] 09919299340 600 Active TAKE 1 TABLET BY MOUTH [...] 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
--- OUTSIDE RECORDS SUMMARY | 2019-05-23 06:50 | XMS REPORT ---
Author Author Alexey Cruz [facility] eClinicalWorks Address Unknown Phone Unavailable Care Team Providers Care Labor Operator Name Role Phone Alexey Cruz Unavailable Allergies, Adverse Reactions, Alerts Substance Reaction Event Type Sulfa Info Not Available Drug Allergy Encounters Encounter Location Date Unknown [facility] Jun 15, 2014 Unknown [facility] Nov 13, 2016 ECHO [facility] Oct 24, 2016 Unknown [facility] Oct 04, 2016 CAROTID DOPPLER [facility] Oct 31, 2016 Unknown [facility] Oct 31, 2016 Unknown [facility] Jun 29, 2016 Unknown [facility] Oct 12, 2014 1 month f/u [facility] Jul 19, 2016 Unknown [facility] November 23, 2014 4 month f/u [facility] Oct 02, 2016 Unknown [facility] Oct 06, 2014 Unknown [facility] Oct 04, 2016 Unknown [facility] Oct 12, 2014 Unknown [facility] Jul 08, 2014 Unknown [facility] Aug 07, 2014 Other [facility] Jul 21, 2014 HOSPITAL FOLLOW UP [facility] Jun 19, 2016 Unknown [facility] Jul 20, 2014 Unknown [facility] December 09, 2014 Unknown [facility] May 20, 2014 Unknown [facility] May 20, 2014 Unknown [facility] May 26, 2014 Unknown [facility] May 26, 2014 Unknown [facility] May 04, 2014 ECHO [facility] May 05, 2014 CAROTID DOPPLER [facility] May 12, 2014 Unknown [facility] December 21, 2014 Unknown [facility] December 15, 2014 AAA SCREEEN [facility] May 26, 2014 Unknown [facility] May 26, 2014 Unknown [facility] February 05, 2015 Unknown [facility] February 09, 2015 black stools,nausea [facility] Apr 27, 2014 Unknown [facility] April 05, 2015 followup on bp meds [facility] Nov 07, 2016 Unknown [facility] December 21, 2014 Unknown [facility] January 05, 2015 Unknown [facility] January 07, 2015 Unknown [facility] January 15, 2015 Unknown [facility] May 10, 2015 Unknown [facility] May 05, 2015 Unknown [facility] Apr 26, 2015 Unknown [facility] Jul 12, 2015 Unknown [facility] Jul 15, 2015 Unknown [facility] May 14, 2015 Unknown [facility] Jul 06, 2015 Unknown [facility] Aug 09, 2015 Unknown [facility] Jul 15, 2015 Unknown [facility] Jul 30, 2015 Unknown [facility] Aug 26, 2015 Unknown [facility] Aug 30, 2015 Unknown [facility] Nov 15, 2015 2 WEEK F/U [facility] Sep 21, 2015 Unknown [facility] 2015 Unknown [facility] Nov 19, 2015 Unknown [facility] December 06, 2015 2 week f/u - UTI [facility] November 30, 2015 Unknown [facility] May 17, 2016 hospital f/u [facility] Jun 01, 2016 Problems Problem Type Condition ICD-9 Code Onset Dates Condition Status Problem Benign essential hypertension I10 Active Assessment Dysuria R30.0 Active Problem Polymyalgia rheumatica M35.3 Active Assessment 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 Problem Bilateral carotid bruits R09.89 Active Problem Acute gastric ulcer K25.3 Active Problem Chronic anxiety F41.9 Active Problem Anxiety F41.9 Active Problem Pure hypercholesterolemia E78.0 Active Assessment Peripheral neuropathic pain G62.9 Active Assessment Polymyalgia rheumatica M35.3 Active Problem 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 Assessment Other and unspecified hyperlipidemia E78.5 Active Problem Cardiomyopathy, unspecified I42.9 Active Problem Other and unspecified hyperlipidemia E78.5 Active Problem Polyneuropathy G62.9 Active Problem Occlusion and stenosis of unspecified carotid artery I65.29 Active Problem 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 Problem Depressive disorder, 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 Active Assessment Benign essential hypertension I10 Active Problem Symptomatic menopausal or female climacteric states N95.1 Active Problem Coronary atherosclerosis I25.10 Active Problem Peripheral neuropathic pain G62.9 Active Problem History of colonic polyps Z86.010 Active Problem Generalized osteoarthrosis, 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 Active Medications Medication Code System Code Instructions Start Date End Date Status Dosage Gabapentin Unknown 0 600 intradermally twice a day (bid) Active 1 tablet Nitrostat [facility] [address]-89 0.4 MG Sublingual as needed (prn) December 15, 2014 Active as directed Macrobid [facility] [address]-00 100 MG Orally every 12 hrs Nov 07, 2016 Nov 17, 2016 Active 1 capsule with food Metoprolol Succinate ER [facility] [address]-23 25 Orally Once a day Active 1 tablet losartan-hydrochlorothiazide 50 mg-12.5 mg Tab Unknown 0 50-12.5 mg mg by mouth once a day Jul 17, 2011 Oct 26, 2017 Active 1 tablet Simvastatin [facility] [address]-05 20 MG Orally Once a day Active 1 tablet in the evening Omeprazole [facility] 39353512156 40 MG Orally Once a day Active 1 capsule Zoloft [facility] [address]-12 EQ 50MG BASE by mouth Once a day Active 2 TABLETS isosorbide mononitrate ER 30 mg Tab Unknown 0 30 mg mg by mouth every day (qd) Jul 17, 2011 Active 1 tablet Sucralfate [facility] [address]-34 1 GM Orally Twice a day Active 1 tablet on an empty stomach Losartan Potassium-HCTZ [facility] [address]-16 50-12.5 MG Orally Once a day Active 1 tablet Hydrochlorothiazide [facility] [address]-97 12.5 MG Orally Once a day Nov 07, 2016 Active 1 capsule Levothyroxine Sodium [facility] [address]-11 50 MCG Orally Once a day Jun 01, 2016 Active 1 tablet PredniSONE [facility] [address]-13 5 MG Orally Once a day Active 1 tablet Social History [...] . 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
--- OUTSIDE RECORDS SUMMARY | 2019-05-23 06:51 | XMS REPORT ---
Author Author Alexey Cruz [facility] eClinicalWorks Address Unknown Phone Unavailable Care Team Providers Care Procurement Agent Name Role Phone Alexey Cruz Unavailable Encounters Encounter Location Date Unknown [facility] Jun 15, 2014 [facility] Jul 19, 2016 Unknown [facility] November 23, 2014 4 month f/u [facility] Oct 02, 2016 Unknown [facility] Oct 06, 2014 Unknown [facility] Oct 04, 2016 Unknown [facility] Oct 12, 2014 Unknown [facility] Jul 08, 2014 Unknown [facility] Aug 07, 2014 Other [facility] Jul 21, 2014 HOSPITAL FOLLOW UP [facility] Jun 19, 2016 Unknown [facility] December 21, 2014 Unknown [facility] December 15, 2014 AAA SCREEEN [facility] May 26, 2014 Unknown [facility] May 26, 2014 Unknown [facility] February 05, 2015 Unknown [facility] February 09, 2015 Unknown [facility] Nov 17, 2016 black stools,nausea [facility] Apr 27, 2014 Unknown [facility] April 05, 2015 followup on bp meds [facility] Nov 07, 2016 Unknown [facility] December 21, 2014 Unknown [facility] Nov 20, 2016 Unknown [facility] January 05, 2015 Unknown [facility] January 07, 2015 Unknown [facility] January 15, 2015 Unknown [facility] May 10, 2015 Unknown [facility] May 05, 2015 Unknown [facility] Apr 26, 2015 Unknown [facility] Jul 12, 2015 Unknown [facility] Jul 15, 2015 Unknown [facility] May 14, 2015 Unknown [facility] Jul 06, 2015 Unknown [facility] Aug 09, 2015 Unknown [facility] Jul 15, 2015 Unknown [facility] Jul 30, 2015 Unknown [facility] Aug 26, 2015 Unknown [facility] Aug 30, 2015 Unknown [facility] Nov 15, 2015 2 WEEK F/U [facility] Sep 21, 2015 Unknown [facility] 2015 Unknown [facility] Nov 19, 2015 Unknown [facility] December 06, 2015 2 week f/u - UTI [facility] November 30, 2015 Unknown [facility] May 17, 2016 hospital f/u [facility] Jun 01, 2016 Problems Problem Type Condition ICD-9 Code Onset Dates Condition Status Problem Other and unspecified hyperlipidemia E78.5 Active Problem Occlusion and stenosis of unspecified carotid artery I65.29 Active Problem Cardiomyopathy, unspecified I42.9 Active Problem Carotid stenosis, bilateral I65.23 Active Problem 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 Problem Carotid stenosis, right I65.21 Active Problem Symptomatic menopausal or female climacteric states N95.1 Active Problem Atherosclerosis of both carotid arteries I65.23 Active Problem Pure hypercholesterolemia E78.0 Active Problem Polyneuropathy G62.9 Active Problem 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 Problem Anxiety F41.9 Active Problem Generalized osteoarthrosis, 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 Active Problem Coronary atherosclerosis I25.10 Active Problem Depressive disorder, 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 Active Problem History of colonic polyps Z86.010 Active Problem Polymyalgia rheumatica M35.3 Active Problem Bilateral carotid bruits R09.89 Active Problem Peripheral neuropathic pain G62.9 Active Problem Chronic anxiety F41.9 Active Problem Benign essential hypertension I10 Active Problem Acute gastric ulcer K25.3 Active Medications Medication Code System Code Instructions Start Date End Date Status Dosage [facility] [address]-08 40 MG Orally Once a day Active 1 capsule Social History Social History [...] . 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
--- OUTSIDE RECORDS SUMMARY | 2019-05-23 06:51 | XMS REPORT ---
Author Author Alexey Cruz Organization [employer] Address Unknown Phone Unavailable Care Team Providers Care Commercial Development Manager Name Role Phone Alexey Cruz CP Unavailable Allergies, Adverse Reactions, Alerts Substance Reaction Event Type Sulfa Info Not Available Drug Allergy morphine Info Not Available Non Drug Allergy Problems Problem Type Condition Code Onset Dates Condition Status Problem Polymyalgia rheumatica M35.3 Active Problem Other and unspecified hyperlipidemia E78.5 Active Problem Chronic anxiety F41.9 Active Problem Other chronic pain G89.29 Active Assessment Benign essential hypertension I10 Active Problem Chronic a-fib I48.2 Active Assessment Depressive disorder, 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 Active Problem Chronic anticoagulation Z79.01 Active Problem Carotid stenosis, right I65.21 Active Problem 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 Problem Macular degeneration (senile) of retina H35.30 Active Problem Urinary incontinence in female R32 Active Problem Depressive disorder, 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 Active Problem Generalized osteoarthrosis, 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 Active Assessment Community acquired pneumonia of left lower lobe of lung J18.1 Active Problem Peripheral neuropathic pain G62.9 Active Problem 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 Problem Symptomatic menopausal or female climacteric states N95.1 Active Problem History of colonic polyps Z86.010 Active Problem Benign essential hypertension I10 Active Problem Coronary atherosclerosis I25.10 Active Medications Medication Code System Code Instructions Start Date End Date Status Dosage Clonazepam ODT NDC 0 0.125 MG Orally Once a day May 23, 2018 Active 1 tablet on the tongue and allow to dissolve before bedtime Losartan Potassium-HCTZ NDC 68113710886 50-12.5 MG Orally Once a day Active take 1 tablet by mouth every day Lidoderm ND 38602806772 5 % Externally Once a day April 02, 2019 May 03, 2019 Active 1 patch to skin remove after 12 hours Suuuju[place] [address]-67 5-2.5-18.5 LF-MCG/0.5 Intramuscular as directed April 23, 2019 Apr 24, 2019 Active as directed Losartan Potassium [facility] 64660222957 50 MG Orally Once a day December 04, 2016 Active 1 tablet PredniSONE [facility] 46317022774 5 MG Orally Once a day Active 1 tablet Nitrostat [facility] 53930120014 0.4 MG Sublingual as needed (prn) December 15, 2014 Active as directed Gabapentin [facility] 50463855934 300 MG Orally twice a day (bid) Active 1/2 half tablet Xarelto [facility] 22803993777 10 mg Orally Once a day February 04, 2019 Active 1 tablet with food Omeprazole [facility] 37170571472 40 Orally Once a day Active 1 capsule Losartan Potassium-HCTZ [facility] 02184301653 50-12.5 MG Orally Once a day Active 1 tablet Isosorbide Mononitrate CR [facility] 02364966367 30 mg Orally Once a day May 21, 2018 Active 1 tablet in the morning Tegretol [facility] 40366020265 200 MG Orally daily Active 1/2 half tablet Levothyroxine Sodium [facility] 29600271039 50 MCG Orally Once a day Active 1 tablet Tramadol HCl [facility] 65166083284 50 mg Orally as needed (prn) Active 1 tablet as needed Sertraline HCl [facility] 63515234571 25 MG Orally once a day Active 1 tablet Eliquis 2.5 mg tablet [facility] 35866235117 twice a day (bid) Active not defined Aspir-81 [facility] 14101692948 81 MG Orally Once a day Active 1 tablet Levothyroxine Sodium [facility] 17058693934 25 MCG Orally Once a day Active 1 tablet Meclizine HCl [facility] 81693597779 12.5 MG Orally twice a day (bid) Active 1 tablet Hydrochlorothiazide [facility] 55304280064 12.5 MG Orally Once a day Active 1 capsule Ondansetron [facility] 84644530455 4 mg Orally every 6 hrs Active 1 tablet on the tongue and allow to dissolve as needed Sertraline HCl [facility] 65769949741 25 Orally once a day Active 1 tablet Omeprazole [facility] 81450533349 40 MG Orally Once a day Active 1 capsule Myrbetriq [facility] 09464287153 25 MG Orally Once a day Jun 20, 2018 Active 1 tablet Clonazepam [facility] 91703910927 0[address] 1 TABLET ON THE TONGUE AND ALLOW TO DISSOLVE ONCE DAILY BEFORE BEDTIME Metoprolol Succinate ER [facility] 66318493779 50 Orally Once a day Active TAKE 1 TABLET BY MOUTH ONCE A DAY Gabapentin [facility] 47318849533 300 MG Orally twice a day (bid) Active 1 capsule Cipro [facility] 40178042431 250 MG Active 1 TABLET DAILY ORALLY 90 DAYS Melatonin [facility] 64457595868 3 MG Orally once every night Active 2 tablet at bedtime as needed with food Isosorbide Mononitrate CR [facility] 50387307649 30 Orally Once a day Active TAKE 1 TABLET BY MOUTH EVERY DAY IN THE MORNING Xarelto [facility] 47103829231 20 MG Orally Once a day March 20, 2017 Active 1 tablet with food Paxil [facility] 69039762592 20 mg Active 1 TABLET IN THE MORNING ONCE A DAY ORALLY 30 DAY(S) Isosorbide Mononitrate CR [facility] 07155568149 30 mg Orally Once a day Active 1 tablet in the morning Cipro [facility] 94491948147 250 Active 1 TABLET DAILY ORALLY 90 DAYS Vital Signs Date/Time: April 23, 2019 BMI 25.23 Index Weight 127.5 lbs Height 59.6 in Temperature 96.6 F Cardiac Monitoring Heart Rate 56 /min Blood Pressure Diastolic 40 mm Hg Blood Pressure Systolic 134 mm Hg Results Name Result Date Reference Range Unit Abnormality Flag BMP (Basic Metabolic Panel) ----Calcium Lvl 8.8 [id number] 8.5-10.5 mg/dL ----AGAP 22.9 [id number] 10.0-20.0 mEq/L H ----CO2 15 [id number] 24-32 mEq/L L ----Chloride Lvl 106 76170417 95-109 mEq/L ----Potassium Lvl 4.9 [id number] 3.5-5.1 mEq/L ----Glucose Lvl 94 99708591 70-99 mg/dL ----eGFR 33 [id number] mL/min/1.73m2 ----BUN 27 [id number] 7-22 mg/dL H ----Creatinine Lvl 1.40 [id number] 0.50-1.40 mg/dL ----Sodium Lvl 139 [id number] 135-145 mEq/L CBC w/ Auto Diff and Platelet ----MCHC 32.5 [id number] 32.0-36.0 g/dL ----MCH 30.9 [id number] 27.0-31.0 pg ----Platelet 433 20190423 133-450 K/CMM ----MPV 7.2 20190423 7.4-10.4 fl L ----RDW 13.3 20190423 11.5-14.5 % ----Hct 32.9 20190423 36.0-48.0 % L ----MCV 95.1 20190423 80.0-98.0 fl ----RBC 3.46 [id number] 4.20-5.40 M/CMM L ----Hgb 10.7 [id number] 12.0-16.0 g/dL L ----WBC 11.2 [id number] 3.7-10.4 K/CMM H Summary Purpose [employer] Submission
--- OUTSIDE RECORDS SUMMARY | 2019-05-23 06:51 | XMS REPORT ---
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 Assessment Other and unspecified hyperlipidemia E78.5 Active Assessment Polymyalgia rheumatica M35.3 Active Assessment Symptomatic menopausal or female climacteric states N95.1 Active Assessment 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 Assessment Depressive disorder, 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 Active Problem History of colonic polyps Z86.010 Active Assessment History of colonic polyps Z86.010 Active Problem Coronary atherosclerosis I25.10 Active Assessment Generalized osteoarthrosis, 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 Active Problem Polymyalgia rheumatica M35.3 Active Problem Other and unspecified hyperlipidemia E78.5 Active Problem Chronic anxiety F41.9 Active Problem Other chronic pain G89.29 Active Problem Chronic a-fib I48.2 Active Assessment Benign essential hypertension I10 Active Assessment Peripheral neuropathic pain G62.9 Active Problem Chronic anticoagulation Z79.01 Active Assessment Coronary atherosclerosis I25.10 Active Problem Carotid stenosis, right I65.21 Active Problem 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 Problem Macular degeneration (senile) of retina H35.30 Active Problem Urinary incontinence in female R32 Active Assessment Other chronic pain G89.29 Active Problem Depressive disorder, 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 Active Assessment Macular degeneration (senile) of retina H35.30 Active Problem Generalized osteoarthrosis, 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 Active Assessment Encounter for screening Z13.9 Active Assessment Encounter for general adult medical examination with abnormal findings Z00.01 Active Assessment Chronic a-fib I48.2 Active Assessment Urinary tract infection without hematuria, site unspecified N39.0 Active Problem Peripheral neuropathic pain G62.9 Active Assessment Chronic anticoagulation Z79.01 Active Problem 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 Problem Symptomatic menopausal or female climacteric states N95.1 Active Problem Benign essential hypertension I10 Active Medications Medication Code System Code Instructions Start Date End Date Status Dosage Levothyroxine Sodium [facility] 39644462247 25 MCG Orally Once a day Active 1 tablet Myrbetriq [facility] 87566639117 25 MG Orally Once a day Jun 20, 2018 Active 1 tablet Isosorbide Mononitrate CR [facility] 93859084557 30 Orally Once a day Active TAKE 1 TABLET BY MOUTH EVERY DAY IN THE MORNING Losartan Potassium-HCTZ [facility] 58836585643 50-12.5 MG Orally Once a day Active TAKE 1 TABLET BY MOUTH EVERY DAY Cipro [facility] 33841229841 250 Active 1 TABLET DAILY ORALLY 90 DAYS Tegretol [facility] 29208979032 200 MG Orally daily Active 1/2 half tablet Levothyroxine Sodium [facility] 88149080907 50 MCG Orally Once a day Active 1 tablet Eliquis 2.5 mg tablet [facility] 63375250254 twice a day (bid) Active not defined Xarelto [facility] 82285180466 10 MG Orally Once a day February 04, 2019 Active 1 tablet with food Clonazepam [facility] 93018537188 0[address] 1 TABLET ON THE TONGUE AND ALLOW TO DISSOLVE ONCE DAILY BEFORE BEDTIME Omeprazole [facility] 90812654719 40 Orally Once a day Active 1 capsule Cipro [facility] 85886765386 250 MG Active 1 TABLET DAILY ORALLY 90 DAYS Losartan Potassium [facility] 30553971004 50 MG Orally Once a day December 04, 2016 Active 1 tablet Hydrochlorothiazide [facility] 39615729146 12.5 MG Orally Once a day Active 1 capsule Aspir-81 [facility] 83352982003 81 MG Orally Once a day Active 1 tablet Sertraline HCl [facility] 00352077954 25 MG Orally once a day Active 1 tablet Ondansetron [facility] 97020147654 4 mg Orally every 6 hrs Active 1 tablet on the tongue and allow to dissolve as needed Melatonin [facility] 18884958445 3 MG Orally once every night Active 2 tablet at bedtime as needed with food PredniSONE [facility] 16331102383 5 MG Orally Once a day Active 1 tablet Xarelto [facility] 07331777713 20 MG Orally Once a day March 20, 2017 Active 1 tablet with food Meclizine HCl [facility] 78097311938 12.5 MG Orally twice a day (bid) Active 1 tablet Omeprazole [facility] 41466046841 40 MG Orally Once a day Active 1 capsule Sertraline HCl [facility] 50806387964 25 Orally once a day Active 1 tablet Tramadol HCl [facility] 88797501736 50 mg Orally as needed (prn) Active 1 tablet as needed Isosorbide Mononitrate CR [facility] 49049160124 30 mg Orally Once a day Active 1 tablet in the morning Eliquis [facility] 76709264128 2.5 MG Orally twice a day (bid) December 16, 2018 Active as directed Gabapentin [facility] 89416958226 300 MG Orally twice a day (bid) Active 1 capsule Clonazepam ODT [facility] 0 0.125 MG Orally Once a day May 23, 2018 Active 1 tablet on the tongue and allow to dissolve before bedtime Nitrostat [facility] 37498036801 0.4 MG Sublingual as needed (prn) December 15, 2014 Active as directed Metoprolol Succinate ER [facility] 56152831117 50 Orally Once a day Active TAKE 1 TABLET BY MOUTH ONCE A DAY Isosorbide Mononitrate CR [facility] 32868155027 30 mg Orally Once a day May 21, 2018 Active 1 tablet in the morning Paxil [facility] 22133027460 20 mg Active 1 TABLET IN THE MORNING ONCE A DAY ORALLY 30 DAY(S) Gabapentin [facility] 41869364591 300 MG Orally twice a day (bid) Active 1/2 half tablet Losartan Potassium-HCTZ [facility] 52772802496 50-12.5 MG Orally Once a day Active 1 tablet Vital Signs Date/Time: March 10, 2019 BMI 24.72 Index Weight 124.9 lbs Height 59.6 in Temperature 96.8 F Cardiac Monitoring Heart Rate 54 /min Blood Pressure Diastolic 44 mm Hg Blood Pressure Systolic 122 mm Hg Results No Known Results Summary Purpose [employer] Submission
--- OUTSIDE RECORDS SUMMARY | 2019-05-23 06:51 | XMS REPORT ---
Author Author Alexey Cruz Organization [employer] Address Unknown Phone Unavailable Care Team Providers Care Finishing Supervisor Name Role Phone Alexey Cruz CP [...] Status Dosage Isosorbide Mononitrate CR [facility] 48309160698 30 Orally Once a day Active TAKE 1 TABLET BY MOUTH EVERY DAY IN THE MORNING Results No Known Results Summary Purpose [employer]Works Submission
--- OUTSIDE RECORDS SUMMARY | 2019-05-23 06:51 | XMS REPORT ---
Author Author Alexey Cruz [facility] [employer] Address Unknown Phone Unavailable Care Team Providers Care Deputy Court Clerk Name Role Phone Alexey Cruz Unavailable [...] [facility] Jul 19, 2016 Unknown [facility] November 23, 2014 4 month f/u [facility] Oct 02, 2016 Unknown [facility] Oct 06, 2014 Unknown [facility] Oct 04, 2016 Unknown [facility] Oct 12, 2014 [...] [facility] December 21, 2014 Unknown [facility] December 15, 2014 AAA SCREEEN [facility] May 26, 2014 Unknown [facility] May 26, 2014 Unknown [facility] February 05, 2015 Unknown [facility] February 09, 2015 Unknown [facility] Nov 17, 2016 black stools,nausea [facility] Apr 27, 2014 Unknown [facility] April 05, 2015 followup on bp meds [facility] Nov 07, 2016 Unknown [facility] December 21, 2014 Unknown [facility] Nov 20, 2016 Unknown [facility] January 05, 2015 Unknown [facility] January 07, 2015 Unknown [facility] January 15, 2015 Unknown [facility] May 10, 2015 Unknown [facility] May 05, 2015 Unknown [facility] Apr 26, 2015 Unknown [facility] Jul 12, 2015 Unknown [facility] Jul 15, 2015 Unknown [facility] May 14, 2015 Unknown [facility] Jul 06, 2015 Unknown [facility] Aug 09, 2015 Unknown [facility] Jul 15, 2015 Unknown [facility] Jul 30, 2015 Unknown [facility] Aug 26, 2015 Unknown [facility] Aug 30, 2015 Unknown [facility] Nov 15, 2015 2 WEEK F/U [facility] Sep 21, 2015 Unknown [facility] 2015 Unknown [facility] Nov 19, 2015 Unknown [facility] December 06, 2015 2 week f/u - UTI [facility] November 30, 2015 Unknown [facility] May 17, 2016 hospital f/u [facility] Jun 01, 2016 Problems Problem Type Condition ICD-9 Code Onset Dates Condition Status Problem Acute gastric ulcer K25.3 Active Problem Cardiomyopathy, unspecified I42.9 Active Problem Other and unspecified hyperlipidemia E78.5 Active Problem Carotid stenosis, right I65.21 Active Problem Symptomatic menopausal or female climacteric states N95.1 Active Problem 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 Assessment Carotid stenosis, bilateral I65.23 Active Assessment Carotid stenosis, right I65.21 Active Problem Carotid stenosis, bilateral I65.23 Active Problem Polyneuropathy G62.9 Active Problem Occlusion and stenosis of unspecified carotid artery I65.29 Active Problem Anxiety F41.9 Active Problem Pure hypercholesterolemia E78.0 Active Problem History of colonic polyps Z86.010 Active Problem Generalized osteoarthrosis, 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
--- OUTSIDE RECORDS SUMMARY | 2019-05-23 06:51 | XMS REPORT ---
Author Author Alexey Cruz [facility] [employer] Address Unknown Phone Unavailable Care Team Providers Care Tactical Debriefer Officer Name Role Phone Alexey Cruz Unavailable Encounters [...] [facility] Oct 02, 2016 Unknown [facility] Oct 06, 2014 Unknown [facility] Oct 04, 2016 Unknown [facility] Oct 12, 2014 Unknown [facility] Jul 08, 2014 Unknown [facility] Aug 07, 2014 Other [facility] Jul 21, 2014 HOSPITAL FOLLOW UP [facility] Jun 19, 2016 Unknown [facility] December 21, 2014 Unknown [facility] December 15, 2014 AAA SCREEEN [facility] May 26, 2014 Unknown [facility] May 26, 2014 Unknown [facility] February 05, 2015 Unknown [facility] February 09, 2015 Unknown [facility] Nov 17, 2016 black stools,nausea [facility] Apr 27, 2014 Unknown [facility] Nov 20, 2016 Unknown [facility] April 05, 2015 followup on bp meds [facility] Nov 07, 2016 Unknown [facility] December 21, 2014 Unknown [facility] Nov 20, 2016 Unknown [facility] January 05, 2015 Unknown [facility] January 07, 2015 Unknown [facility] January 15, 2015 Unknown [facility] May 10, 2015 Unknown [facility] May 05, 2015 Unknown [facility] Apr 26, 2015 Unknown [facility] Jul 12, 2015 Unknown [facility] Jul 15, 2015 Unknown [facility] May 14, 2015 Unknown [facility] Jul 06, 2015 Unknown [facility] Aug 09, 2015 Unknown [facility] Jul 15, 2015 Unknown [facility] Jul 30, 2015 Unknown [facility] Aug 26, 2015 Unknown [facility] Aug 30, 2015 Unknown [facility] Nov 15, 2015 2 WEEK F/U [facility] Sep 21, 2015 Unknown [facility] 2015 Unknown [facility] Nov 19, 2015 Unknown [facility] December 06, 2015 2 week f/u - UTI [facility] November 30, 2015 Unknown [facility] May 17, 2016 hospital f/u [facility] Jun 01, 2016 Problems Problem Type Condition ICD-9 Code Onset Dates Condition Status Assessment Carotid stenosis, bilateral I65.23 Active Problem Chronic anxiety F41.9 Active Assessment Carotid stenosis, right I65.21 Active Problem Acute gastric ulcer K25.3 Active [...] Atherosclerosis of both carotid arteries I65.23 Active Assessment Atherosclerosis of both carotid arteries [...] no Nov 07, 2016 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
--- OUTSIDE RECORDS SUMMARY | 2019-05-23 06:51 | XMS REPORT ---
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
--- OUTSIDE RECORDS SUMMARY | 2019-05-23 06:51 | XMS REPORT ---
Author Author Alexey Cruz [facility] [employer] Address Unknown Phone Unavailable Care Team Providers Care Group Underwriter Name Role Phone lAexey Cruz Unavailable Encounters Encounter Location Date Unknown [facility] [place] Jun [facility] 2014 [facility] Jul 21, [address] [facility] [place] Jun 19, 2016 [facility] May 12, [address] [facility] [place] December 21, [address] [facility] [place] December 15, 2014 [facility] May 26, [address] [facility] [place] May 26, 2014 Unknown [facility] Nov 15, 2016 [facility] February 05, 2015 [...] [facility] January 15, [address] [facility] [place] May 10, 2015 [facility] May 05, [address] [facility] [place] Apr 26, [address] [facility] [place] Jul 12, [address] [facility] [place] Jul 15, [address] [facility] [place] May 14, [address] [facility] [place] Jul 06, [address] [facility] [place] Aug 09, [address] [facility] [place] Jul 15, [address] [facility] [place] Jul 30, [address] [facility] [place] Aug 26, [address] [facility] [place] Aug 30, [address] [facility] [place] Nov 15, 2015 2 WEEK F/U [facility] [place] Sep 21, [address] [facility] [place] [address] [facility] [place] Nov 19, [address] [facility] [place] December 06, 2015 2 week f/u - UTI [facility] [place] November 30, [address] [facility] [place] May 17, 2016 hospital f/u [facility] [place] Jun 01, 2016 Problems Problem [...] . 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
--- OUTSIDE RECORDS SUMMARY | 2019-05-23 06:51 | XMS REPORT ---
Author Author Alexey Cruz Organization [employer] Address Unknown Phone Unavailable Care Team Providers Care Thermal Molder Name Role Phone Alexey Cruz CP Unavailable Allergies, Adverse Reactions, Alerts Substance Reaction Event Type Sulfa Info Not Available Drug Allergy morphine Info Not Available Non Drug Allergy Problems Problem Type Condition Code Onset Dates Condition Status Problem Polymyalgia rheumatica M35.3 Active Problem Other and unspecified hyperlipidemia E78.5 Active Problem Chronic anxiety F41.9 Active Problem Other chronic pain G89.29 Active Assessment Dorsalgia, unspecified M54.9 Active Problem Chronic a-fib I48.2 Active Assessment Other chronic pain G89.29 Active Assessment Benign essential hypertension I10 Active Problem Chronic anticoagulation Z79.01 Active Problem Carotid stenosis, right I65.21 Active Problem 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 Problem Macular degeneration (senile) of retina H35.30 Active Problem Urinary incontinence in female R32 Active Problem Depressive disorder, 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 Active Problem Generalized osteoarthrosis, 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 Active Assessment Urinary tract infection without hematuria, site unspecified N39.0 Active Problem Peripheral neuropathic pain G62.9 Active Problem 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 Problem Symptomatic menopausal or female climacteric states N95.1 Active Problem History of colonic polyps Z86.010 Active Problem Benign essential hypertension I10 Active Problem Coronary atherosclerosis I25.10 Active Medications Medication Code System Code Instructions Start Date End Date Status Dosage Ondansetron ND 51919868923 4 mg Orally every 6 hrs Active 1 tablet on the tongue and allow to dissolve as needed Nitrofurantoin Macrocrystal ND 33533594656 100 MG Orally bid March 26, 2019 April 05, 2019 Active 1 capsule with food or milk Levothyroxine Sodium ND 88214528643 25 MCG Orally Once a day Active 1 tablet Tramadol HCl ND 24871230202 50 mg Orally as needed (prn) Active 1 tablet as needed Cipro [facility] 01584885628 250 MG Active 1 TABLET DAILY ORALLY 90 DAYS Lidoderm [facility] 93787392200 5 % Externally Once a day April 02, 2019 May 03, 2019 Active 1 patch to skin remove after 12 hours Tegretol [facility] 43099346977 200 MG Orally daily Active 1/2 half tablet Gabapentin [facility] 08432384112 300 MG Orally twice a day (bid) Active 1/2 half tablet Isosorbide Mononitrate CR [facility] 15513130896 30 Orally Once a day Active TAKE 1 TABLET BY MOUTH EVERY DAY IN THE MORNING Clonazepam ODT [facility] 0 0.125 MG Orally Once a day May 23, 2018 Active 1 tablet on the tongue and allow to dissolve before bedtime Isosorbide Mononitrate CR [facility] 10228007882 30 mg Orally Once a day May 21, 2018 Active 1 tablet in the morning Losartan Potassium-HCTZ [facility] 54769264560 50-12.5 MG Orally Once a day Active 1 tablet Levothyroxine Sodium [facility] 84724730657 50 MCG Orally Once a day Active 1 tablet Losartan Potassium [facility] 90466885077 50 MG Orally Once a day December 04, 2016 Active 1 tablet Metoprolol Succinate ER [facility] 23198114170 50 Orally Once a day Active TAKE 1 TABLET BY MOUTH ONCE A DAY Eliquis 2.5 mg tablet [facility] 53305662552 twice a day (bid) Active not defined Sertraline HCl [facility] 89427852308 25 MG Orally once a day Active 1 tablet Melatonin [facility] 96944308312 3 MG Orally once every night Active 2 tablet at bedtime as needed with food Meclizine HCl [facility] 97971897851 12.5 MG Orally twice a day (bid) Active 1 tablet Sertraline HCl [facility] 85421417944 25 Orally once a day Active 1 tablet Hydrochlorothiazide [facility] 69632521829 12.5 MG Orally Once a day Active 1 capsule Myrbetriq [facility] 20596047843 25 MG Orally Once a day Jun 20, 2018 Active 1 tablet Gabapentin [facility] 56070261386 300 MG Orally twice a day (bid) Active 1 capsule PredniSONE [facility] 24549000899 5 MG Orally Once a day Active 1 tablet Losartan Potassium-HCTZ [facility] 72811550891 50-12.5 MG Orally Once a day Active TAKE 1 TABLET BY MOUTH EVERY DAY Omeprazole [facility] 93575703909 40 Orally Once a day Active 1 capsule Aspir-[address] [facility] 70872053374 81 MG Orally Once a day Active 1 tablet Omeprazole [facility] 78590454886 40 MG Orally Once a day Active 1 capsule Paxil [facility] 81081116701 20 mg Active 1 TABLET IN THE MORNING ONCE A DAY ORALLY 30 DAY(S) Eliquis [facility] 51872166294 2.5 MG Orally twice a day (bid) December 16, 2018 Active as directed Nitrostat [facility] 20249893744 0.4 MG Sublingual as needed (prn) December 15, 2014 Active as directed Xarelto [facility] 58927073763 10 MG Orally Once a day February 04, 2019 Active 1 tablet with food Cipro [facility] 23409862624 250 Active 1 TABLET DAILY ORALLY 90 DAYS Clonazepam [facility] 52763924553 0[address] 1 TABLET ON THE TONGUE AND ALLOW TO DISSOLVE ONCE DAILY BEFORE BEDTIME Isosorbide Mononitrate CR [facility] 44146589482 30 mg Orally Once a day Active 1 tablet in the morning Xarelto [facility] 48043999090 20 MG Orally Once a day March 20, 2017 Active 1 tablet with food Vital Signs Date/Time: April 02, 2019 BMI 25.04 Index Weight 126.5 lbs Height 59.6 in Temperature 97.6 F Cardiac Monitoring Heart Rate 61 /min Blood Pressure Diastolic 44 mm Hg Blood Pressure Systolic 130 mm Hg Results Name Result Date Reference Range Unit Abnormality Flag Spine Thoracic 4+ views DX Spine lumbar AP lateral Summary Purpose eClinicalWorks Submission
--- NOTE | 2019-05-23 07:39 | Diagnostic Imaging Report ---
Exam: Left shoulder 2 views History: Fall, left shoulder and rib pain Comparison: None. Findings: Cortical irregularity along the inferior glenoid. Humeral head is intact. No findings to suggest glenohumeral dislocation. Clavicle and acromioclavicular joint are intact. Multiple incompletely healed fracture deformities of left-sided ribs. Impression: Suspected nondisplaced fracture of the inferior lip of the glenoid. Multiple incompletely healed left rib fractures. Signed by: Dr. Shun Manley M.D. on 05/23/2019 7:36 AM
--- NOTE | 2019-05-23 07:43 | Diagnostic Imaging Report ---
Exam: Left rib series History: Fall, left rib pain Comparison: None. Findings: There are age indeterminate though likely subacute fractures of the left fourth, fifth, and sixth ribs with suggestion of osseous callus formation and persistent visualization of the fracture lines. No pneumothorax. Lungs are clear with coarse reticular opacities predominantly within the lung bases compatible with age-related fibrotic changes. Status post median sternotomy with normal heart size and no overt pulmonary edema. Impression: Age indeterminant, likely subacute fractures of the left fourth, fifth, and sixth ribs. No pneumothorax. Signed by: Dr. Shun Manley M.D. on 05/23/2019 7:40 AM
[2019-05-23 07:56] VITALS: BP 167/56
--- NOTE | 2019-05-23 08:54 | Diagnostic Imaging Report ---
History:Fall Comparison studies:CT head 03/11/2018 Technique: Axial images were obtained from the skull base to the vertex. Coronal and sagittal images reconstructed from the axial data. Intravenous contrast: None Dose modulation, iterative reconstruction, and/or weight based adjustment of the mA/kV was utilized to reduce the radiation dose to as low as reasonably achievable. Findings: Scalp/skull: Left parieto-occipital scalp hematoma with skin sutures. No fractures. Extra-axial spaces: No masses. No fluid collections. Brain sulci: Moderately prominent. Ventricles: Mild compensatory dilatation. No hydrocephalus. Parenchyma: Scattered hypodensities in the supratentorial white matter are small vessel ischemic changes. Cortical-based hypodensity at the right inferior frontal gyrus and pars opercularis with volume loss and confluent adjacent white matter hypodensity, related to remote insult. No masses, hemorrhage or acute cortical vascular insults. Sellar/suprasellar region: No abnormalities. Craniocervical junction: Patent foramen magnum. No Chiari one malformation. Incidental findings: Atherosclerotic calcifications in the carotid siphons and vertebral arteries . Impression: No acute intracranial abnormalities. Left parieto-occipital scalp hematoma with skin sutures, without underlying fractures Chronic findings: 1. Moderate generalized volume loss. 2. Moderate supratentorial white matter small vessel ischemic changes. 3. 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 on 05/23/2019 8:50 AM
--- NOTE | 2019-05-23 09:06 | Diagnostic Imaging Report ---
History: Fall, cervical spine tenderness. Comparison studies: None Technique: Axial images were obtained through the cervical region.. Coronal and sagittal images reconstructed from the axial data.. Intravenous contrast: None Dose modulation, iterative reconstruction, and/or weight based adjustment of the mA/kV was utilized to reduce the radiation dose to as low as reasonably achievable. Findings: Fractures: None. Soft tissues: No gross abnormalities. Atlantoaxial articulation: Degenerative changes without acute abnormality. Alignment: Straightening of normal lordosis. Mild dextroscoliosis of the lower cervical spine, probably positional. Cervicomedullary junction: No abnormalities. The foramen magnum is patent. Vertebrae: No infection or neoplasm. Degenerative changes: Facet hypertrophy and uncinate process results in severe left foraminal narrowing at C3-4. Disc degeneration with endplate sclerosis at C6-7. Other degenerative changes without significant (moderate or severe) canal stenosis or foraminal narrowing. IMPRESSION: 1. No acute cervical spine abnormalities. 2. Cannot exclude ligament, spinal cord and or vascular abnormalities on the basis of this examination. Signed by: DR Reji Hidalgo M.D. on 05/23/2019 9:03 AM
== END 2019-05-23 09:41 | disposition home or self-care (01) ==
LOC: ER 06:30
DX: S01.01XA Laceration without foreign body of scalp, initial encounter (principal); S42.145A Nondisplaced fracture of glenoid cavity of scapula, left shoulder, initial encounter for closed fracture; S16.1XXA Strain of muscle, fascia and tendon at neck level, initial encounter; M54.2 Cervicalgia; W01.0XXA Fall on same level from slipping, tripping and stumbling without subsequent striking against object, initial encounter; Y92.008 Other place in unspecified non-institutional (private) residence as the place of occurrence of the external cause; I10 Essential (primary) hypertension; E03.9 Hypothyroidism, unspecified; K21.9 Gastro-esophageal reflux disease without esophagitis
CPT/HCPCS: 70450; 71101; 72125; 99283

== ENCOUNTER 2019-06-02 13:24 | Emergency (ER) | payer MEDICARE, BC ==
--- OUTSIDE RECORDS SUMMARY | 2019-06-02 13:33 | XMS REPORT ---
[facility] Address Unknown Phone Unavailable Care Team Providers Care [address] Magistrate Name Role Phone Faye PUTNAM Unavailable Unavailable Juarez POOL Unavailable Unavailable Problems This patient has no known problems. Allergies, Adverse Reactions, Alerts This patient has no known allergies or adverse reactions. Medications This patient has no known medications. Encounters Start Date/Time End Date/Time Encounter Type Admission Type Attending Clinicians Care Facility Care Department Encounter ID 2019-04-14 11:21:00 Inpatient [facility] [id number] 2019-05-09 12:02:00 2019-05-09 12:02:00 Outpatient [facility] [id number] 2019-04-02 12:01:00 2019-04-02 12:01:00 Outpatient [facility] [id number] Results Test Description Test Time Test Comments Text Results Atomic Results Result Comments CT CERVICAL SPINE WO 2019-05-23 08:50:00 [place] [address] Patient Name: DAISHA MASSEY MR #: [id number] : 1930 Age/Sex: 88/F Req #: [id number] Adm Physician: Ordered by: SHAISTA PUTNAM MD Report #: [id number] Location: ER Room/Bed: Procedure: [id number] CT/CT CERVICAL SPINE WO Exam Date: 05/23/19 Exam Time: 827 REPORT STATUS: Signed History: Fall, cervical spine tenderness. Comparison studies: None Technique: Axial images were obtained through the cervical region.. Coronal and sagittal images reconstructed from the axial data.. Intravenous contrast: None Dose modulation, iterative reconstruction, and/or weight based adjustment of the mA/kV was utilized to reduce the radiation dose to as low as reasonably achievable. Findings: Fractures: None. Soft tissues: No gross abnormalities. Atlantoaxial articulation: Degenerative changes without acute abnormality. Alignment: Straightening of normal lordosis. Mild dextroscoliosis of the lower cervical spine, probably positional. Cervicomedullary junction: No abnormalities. The foramen magnum is patent. Vertebrae: No infection or neoplasm. Degenerative changes: Facet hypertrophy and uncinate process results in severe left foraminal narrowing at C3-4. Disc degeneration with endplate sclerosis at C6-7. Other degenerative changes without significant (moderate or severe) canal stenosis or foraminal narrowing. IMPRESSION: 1. No acute cervical spine abnormalities. 2. Cannot exclude ligament, spinal cord and or vascular abnormalities on the basis of this examination. Signed by: DR Reji Hidalgo M.D. on 05/23/2019 9:03 AM Dictated By: REJI ERICKSON MD 2 Transcribed By: WALTER on 05/23/19902 COPY TO: SHAISTA PUTNAM MD CT BRAIN WO 2019-05-23 08:40:00 [place] [address] Patient Name: DAISHA MASSEY MR #: [id number] : 1930 Age/Sex: 88/F Req #: [id number] Adm Physician: Ordered by: KULDEEP NEVES DO Report #: [id number] Location: ER Room/Bed: Procedure: [id number] CT/CT BRAIN WO Exam Date: 05/23/19 Exam Time: 0730 REPORT STATUS: Signed History:Fall Comparison studies:CT head 03/11/2018 Technique: Axial images were obtained from the skull base to the vertex. Coronal and sagittal images reconstructed from the axial data. Intravenous contrast: None Dose modulation, iterative reconstruction, and/or weight based adjustment of the mA/kV was utilized to reduce the radiation dose to as low as reasonably achievable. Findings: Scalp/skull: Left parieto- occipital scalp hematoma with skin sutures. No fractures. Extra-axial spaces: No masses. No fluid collections. Brain sulci: Moderately prominent. Ventricles: Mild compensatory dilatation. No hydrocephalus. Pa renchyma: Scattered hypodensities in the supratentorial white matter are small vessel ischemic changes. Cortical-based hypodensity at the right inferior frontal gyrus and pars opercularis with volume loss and confluent adjacent white matter hypodensity, related to remote insult. No masses, hemorrhage or acute cortical vascular insults. Sellar/suprasellar region: No abnormalities. Craniocervical junction: Patent foramen magnum. No Chiari one malformation. Incidental findings: Atherosclerotic calcifications in the carotid siphons and vertebral arteries . Impression: No acute intracranial abnormalities. Left parieto-occipital scalp hematoma with skin sutures, without underlying fractures Chronic findings: 1. Moderate generalized volume loss. 2. Moderate supratentorial white matter small vessel ischemic changes. 3. 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 on 05/23/2019 8:50 AM Dictated By: REJI ERICKSON MD 0850 Transcribed By: WALTER on 05/23/19 0850 COPY TO: KULDEEP NEVES W/CXR 2019-05-23 07:36:00 [place] [address] Patient Name: DAISHA MASSEY MR #: [id number] : 1930 Age/Sex: 88/F Req #: [id number] Adm Physician: Ordered by: KULDEEP NEVES DO Report #: [id number] Location: ER Room/Bed: Procedure: [id number] DX/RIBS UNILAT W/CXR Exam Date: 05/23/19 Exam Time: 709 REPORT STATUS: Signed Exam: Left rib series History: Fall, left rib pain Comparison: None. Findings: There are age indeterminate though likely subacute fractures of the left fourth, fifth, and sixth ribs with suggestion of osseous callus formation and persistent visualization of the fracture lines. No pneumothorax. Lungs are clear with coarse reticular opacities predominantly within the lung bases compatible with age-related fibrotic changes. Status post median sternotomy with normal heart size and no overt pulmonary edema. Impression: Age indeterminant, likely subacute fractures of the left fourth, fifth, and sixth ribs. No pneumothorax. Signed by: Dr. Harley Vega M.D. on 05/23/2019 7:40 AM Dictated By: HARLEY VEGA MD 9 Transcribed By: WALTER on 05/23/19739 COPY TO: KULDEEP NEVES DO SHOULDER LEFT COMPLETE 2019-05-23 07:34:00 [place] [address] Patient Name: DAISHA MASSEY MR #: [id number] : 1930 Age/Sex: 88/F Req #: [id number] Adm Physician: Ordered by: KULDEEP NEVES DO Report #: [id number] Location: ER Room/Bed: Procedure: DX/SHOULDER LEFT COMPLETE Exam Date: 05/23/19 Exam Time: 07 REPORT STATUS: Signed Exam: Left shoulder 2 views History: Fall, left shoulder and rib pain Comparison: None. Findings: Cortical irregularity along the inferior glenoid. Humeral head is intact. No findings to suggest glenohumeral dislocation. Clavicle and acromioclavicular joint are intact. Multiple incompletely healed fracture deformities of left-sided ribs. Impression: Suspected nondisplaced fracture of the inferior lip of the glenoid. Multiple incompletely healed left rib fractures. Signed by: Dr. Harley Vega M.D. on 05/23/2019 7:36 AM Dictated By: HARLEY VEGA MD 5 Transcribed By: WALTER on 05/23/19735 COPY TO: KULDEEP NEVES DO CHEST 2 VIEWS 2018-03-11 15:49:00 [place] [address] Patient Name: DAISHA MASSEY MR #: [id number] : 1930 Age/Sex: 87/F Req #: [id number] Adm Physician: Ordered by: OUMOU JOAQUIN [employer] Report #: [id number] Location: ER Room/Bed: Procedure: [id number] DX/CHEST 2 VIEWS Exam Date: 03/11/18 Exam Time: 1500 REPORT STATUS: Signed PROCEDURE: Frontal and lateral views of the chest. COMPARISON: None. INDICATIONS: FALL FINDINGS: Lines/tubes: None. Lungs: 1.9 cm irregular density in the left lower lobe on the PA view. Mild bibasilar senescent fibrosis. No consolidative pneumonia. Pleura: There is no pleural effusion or pneumothorax. Biapical pleural scarring. Heart and mediastinum: The heart and the mediastinum are normal. Median sternotomy wires. Mild prominence of the right hilum. Bones: No acute bony abnormality. IMPRESSION: 1. No acute thoracic abnormality. 2. 1.9 cm irregular density in the left lower lobe. Recommend further evaluation with nonemergent CT chest. Iva Ferris M.D. Dictated by: Iva Ferris M.D. on 03/11/2018 at 15:49 Electr onically approved by: Iva Ferris M.D. on 03/11/2018 at 15:49 Dictated By: EZEKIEL FERRIS MD, MD 1549 Transcribed By: DANIEL on 03/11/18 1549 COPY TO: OUMOU JOAQUIN NP HUMERUS RIGHT 2+VIEWS 2018-03-11 15:37:00 [place] [address] Patient Name: DAISHA MASSEY MR #: [id number] : 1930 Age/Sex: 87/F Req #: [id number] Adm Physician: Ordered by: OUMOU JOAQUIN [employer] Report #: [id number] Location: ER Room/Bed: Procedure: [id number] DX/HUMERUS RIGHT 2+VIEWS Exam Date: 03/11/18 Exam Time: 1500 REPORT STATUS: Signed ELBOW RIGHT COMPLETE, FOREARM RIGHT 2 VIEW, HUMERUS RIGHT 2+VIEWS - 3 views HISTORY: Pain status post fall. COMPARISON: None available. FINDINGS: Bones: Mild generalized osteopenia. Small linear lucency with slight irregularity of the cortex of the medial epicondyle identified on the oblique view only. No acute displaced fracture. Osseous alignment is within normal limits. Joints: Advanced degenerative changes of the first and second carpometacarpal joints. Cystic changes throughout the carpal bones. Soft tissues: The soft tissues appear unremarkable. IMPRESSION: 1. Small linear lucency with slight irregularity of the cortex of the medial epicondyle identified on the oblique view only; it may be artifactual versus less likely a nondisplaced fracture. Otherwise no acute osseous abnormality. 2. 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 Signed by: Dr. Iva Ferris M.D. on 03/11/2018 3:41 PM Dictated By: EZEKIEL FERRIS MD, MD 1541 Transcribed By: WALTER on 03/11/18 1541 COPY TO: OUMOU JOAQUIN NP FOREARM RIGHT 2 VIEW 2018-03-11 15:37:00 [place] [address] Patient Name: DAISHA MASSEY MR #: [id number] : 1930 Age/Sex: 87/F Req #: [id number] Adm Physician: Ordered by: OUMOU JOAQUIN [employer] Report #: [id number] Location: ER Room/Bed: Procedure: [id number] DX/FOREARM RIGHT 2 VIEW Exam Date: 03/11/18 Exam Time: 1500 REPORT STATUS: Signed ELBOW RIGHT COMPLETE, FOREARM RIGHT 2 VIEW, HUMERUS RIGHT 2+VIEWS - 3 views HISTORY: Pain status post fall. COMPARISON: None available. FINDINGS: Bones: Mild generalized osteopenia. Small linear lucency with slight irregularity of the cortex of the medial epicondyle identified on the oblique view only. No acute displaced fracture. Osseous alignment is within normal limits. Joints: Advanced degenerative changes of the first and second carpometacarpal joints. Cystic changes throughout the carpal bones. Soft tissues: The soft tissues appear unremarkable. IMPRESSION: 1. Small linear lucency with slight irregularity of the cortex of the medial epicondyle identified on the oblique view only; it may be artifactual versus less likely a nondisplaced fracture. Otherwise no acute osseous abnormality. 2. 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 Signed by: Dr. Iva Ferris M.D. on 03/11/2018 3:41 PM Dictated By: EZEKIEL FERRIS MD, MD 1541 Transcribed By: WALTER on 03/11/18 1541 COPY TO: OUMOU JOAQUIN NP ELBOW RIGHT COMPLETE 2018-03-11 15:37:00 [place] [address] Patient Name: DAISHA MASSEY MR #: [id number] : 1930 Age/Sex: 87/F Req #: [id number] [facility] Physician: Ordered by: OUMOU JOAQUIN [employer] Report #: [id number] Location: ER Room/Bed: Procedure: [id number] DX/ELBOW RIGHT COMPLETE Exam Date: 03/11/18 Exam Time: 1500 REPORT STATUS: Signed ELBOW RIGHT COMPLETE, FOREARM RIGHT 2 VIEW, HUMERUS RIGHT 2+VIEWS - 3 views HISTORY: Pain status post fall. COMPARISON: None available. FINDINGS: Bones: Mild generalized osteopenia. Small linear lucency with slight irregularity of the cortex of the medial epicondyle identified on the oblique view only. No acute displaced fracture. Osseous alignment is within normal limits. Joints: Advanced degenerative changes of the first and second carpometacarpal joints. Cystic changes throughout the carpal bones. Soft tissues: The soft tissues appear unremarkable. IMPRESSION: 1. Small linear lucency with slight irregularity of the cortex of the medial epicondyle identified on the oblique view only; it may be artifactual versus less likely a nondisplaced fracture. Otherwise no acute osseous abnormality. 2. 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 Signed by: Dr. Iva Ferris M.D. on 03/11/2018 3:41 PM Dictated By: EZEKIEL FERRIS MD, MD 1541 Transcribed By: WALTER on 03/11/18 1541 COPY TO: OUMOU JOAQUIN NP CT BRAIN WO 2018-03-11 15:32:00 [place] [address] Patient Name: DAISHA MASSEY MR #: [id number] : 1930 Age/Sex: 87/F Req #: [id number] Adm Physician: Ordered by: OUMOU JOAQUIN [employer] Report #: [id number] Location: ER Room/Bed: Procedure: [id number] CT/CT BRAIN WO Exam Date: 03/11/18 Exam Time: 1515 REPORT STATUS: Signed History: S fall on blood thinner S [id number] S 1515 S Y Comparison studies:Head CT on 07/27/2012 Technique: Axial images were obtained from the skull base to the vertex. Coronal and sagittal images reconstructed from the axial data. Intravenous contrast: None Findings: Scalp/skull: No abnormalities. Extra-axial spaces: No masses. No fluid collections. Brain sulci: Moderately prominent. Ventricles: Moderate compensatory dilatation. No hydrocephalus. Parenchyma: Scattered, confluent hypodensities in the supratentorial white matter are small vessel ischemic changes which have mildly worsened since 07/27/2012. Chronic cortical encephalomalacic changes, centered in the right inferior frontal gyrus, associated with chronic changes in the underlying white matter and with regional volume loss, are the result of a previous peripheral MCA vascular insult. No masses, hemorrhage or additional acute or chronic cortical vascular insults. Sellar/suprasellar region: No abnormalities. Craniocervical junction: Patent foramen magnum. No Chiari one malformation. Incidental findings: Atherosclerotic calcifications in the carotid siphons . Impression: 1. No acute intracranial abnormalities. 2. Generalized volume loss and microvascular changes in the supratentorial white matter has a increased from mild to moderate since 08/13/2012. 3. Otherwise, no changes wh en compared to the head CT on 07/27/2012. 4. 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 Preliminary findings discussed with Dr. OUMOU JOAQUIN NP at 03/11/2018 3:[address] Rueda. Signed by: Dr. Eduin Jernigan M.D. on 03/11/2018 3:46 PM Dictated By: EDUIN JERNIGAN MD, MD 1546 Transcribed By: WALTER on 03/11/18 1546 COPY TO: OUMOU JOAQUIN NP
--- NOTE | 2019-06-02 15:18 | NUR ---
NO ANSWER WHEN CALLED TO TRIAGE.
--- NOTE | 2019-06-02 16:15 | NUR ---
NO ANSWER WHEN CALLED TO TRIAGE.
== END 2019-06-02 16:17 | disposition left against medical advice (07) ==
LOC: ER 13:24
DX: Z48.02 Encounter for removal of sutures (principal)